=== PATIENT | female | born 1935 | race Caucasian/White ===

== ENCOUNTER → 2016-11-09 | Outpatient (CLI) | payer MEDICARE ==
--- NOTE | 2016-11-12 07:35 | MM ---
Reason for exam: screening (asymptomatic). Last mammogram was performed 15 years and 6 months ago. History: Patient is postmenopausal and has history of other cancer at age 27. Physical Findings: A clinical breast exam by your physician is recommended on an annual basis and results should be correlated with mammographic findings. MG 3D Screening Mammo W/Cad Bilateral CC and MLO view(s) were taken. Prior study comparison: November 24, 2013, mammogram. July 08, 2012, mammogram. There are scattered fibroglandular densities. Finding: There is a typically benign 3.8 mm equal density (isodense), round mass in the right breast seen only on MLO view. There is a chronic nodularity in the right breast. New finding since November 24, 2013 and July 08, 2012. ASSESSMENT: Probably benign, BI-RAD 3 RECOMMENDATION: Follow-up diagnostic mammogram of the right breast in 6 months.
== END | disposition home or self-care (01) ==
LOC: RADMAMWWP 14:34
PROVIDERS: ATTEND Internal Medicine
DX: Z12.31 Encounter for screening mammogram for malignant neoplasm of breast (principal); Z88.1 Allergy status to other antibiotic agents
CPT/HCPCS: 77063; G0202

== ENCOUNTER → 2017-05-15 | Outpatient (CLI) | payer MEDICARE ==
--- NOTE | 2017-05-16 06:58 | MM ---
Reason for exam: follow-up at short interval from prior study. Last mammogram was performed 6 months ago. History: Patient is postmenopausal and has history of other cancer at age 27. Physical Findings: Nurse did not find any significant physical abnormalities on exam. MG 3D Diag Mammo W/Cad RT CC and MLO view(s) were taken of the right breast. Prior study comparison: November 09, 2016, bilateral MG 3d screening mammo w/cad. November 24, 2013, mammogram. There are scattered fibroglandular densities. The previously seen 3mm asymmetry overlying the inferior pectoralis muscles is unchanged. Precautionary 6 month follow up recommended. These results were verbally communicated with the patient and result sheet given to the patient on 05/15/17. ASSESSMENT: Probably benign, BI-RAD 3 RECOMMENDATION: Follow-up diagnostic mammogram of both breasts in 6 months.
== END | disposition home or self-care (01) ==
LOC: RADMAMWWP 15:31
PROVIDERS: ATTEND Internal Medicine
DX: R92.8 Other abnormal and inconclusive findings on diagnostic imaging of breast (principal)
CPT/HCPCS: 77065; G0279

== ENCOUNTER → 2017-11-29 | Outpatient (CLI) | payer MEDICARE ==
[2017-11-29 10:56] LABS: Basophils % (A) 1 %; Eosinophils # (A) 0.3 k/uL (0-0.7); Eosinophils % (A) 5 %; HCT 37.3 % (34.0-46.0); HGB 11.7 gm/dL (11.4-16.0); Hypochromasia Slight; Lymphocytes # (A) 1.5 k/uL (1.0-4.8); Lymphocytes % (A) 28 %; MCH 30.5 pg (25.0-35.0); MCHC 31.4 g/dL (31.0-37.0); MCV 97.3 fL (80.0-100.0); Mean Platelet Volume 6.7; Monocytes # (A) 0.4 k/uL (0-1.0); Monocytes % (A) 8 %; Neutrophils % (A) 55 %; Platelet Count 258 k/uL (150-450); RBC 3.84 m/uL (3.80-5.40); RDW 14.3 % (11.5-15.5); WBC 5.5 k/uL (3.8-10.6)
[2017-11-29 11:59] LABS: Albumin 3.7 g/dL (3.5-5.0); C Reactive Protein 10.1 mg/L (<10.0); Calcium 9.3 mg/dL (8.4-10.2); Magnesium 2.3 mg/dL (1.6-2.3); Phosphorus 4.2 mg/dL (2.5-4.5); Potassium 4.6 mmol/L (3.5-5.1); Total Bilirubin 0.3 mg/dL (0.2-1.3); Total Protein 6.6 g/dL (6.3-8.2); Uric Acid 7.2 mg/dL (3.7-7.4)
[2017-11-29 13:39] LABS: Erythrocyte Sedimentation Rate 18 mm/hr (0-20)
[2017-11-29 16:29] LABS: Vitamin D 25 Hydroxy 19.4 ng/mL (30.0-100.0)
[2017-11-29 17:33] LABS: Parathyroid Hormone Intact 93.3 pg/mL (14.0-72.0)
[2017-11-29 22:29] LABS: Hemoglobin A1C 5.1 % (4.0-6.0)
== END | disposition home or self-care (01) ==
LOC: LABWHC1 10:18
PROVIDERS: ATTEND Internal Medicine
DX: E11.22 Type 2 diabetes mellitus with diabetic chronic kidney disease (principal); I12.9 Hypertensive chronic kidney disease with stage 1 through stage 4 chronic kidney disease, or unspecified chronic kidney disease; N18.4 Chronic kidney disease, stage 4 (severe); M10.9 Gout, unspecified; E78.5 Hyperlipidemia, unspecified; M19.90 Unspecified osteoarthritis, unspecified site
CPT/HCPCS: 36415; 80053; 80061; 82306; 82550; 83036; 83735; 83970; 84100; 84443; 84550; 85025; 85652; 86140

== ENCOUNTER → 2018-01-15 | Outpatient (CLI) | payer MEDICARE ==
--- NOTE | 2018-01-20 11:15 | MM ---
Reason for exam: screening (asymptomatic). Last mammogram was performed 8 months ago. History: Patient is postmenopausal and has history of other cancer at age 27. Physical Findings: A clinical breast exam by your physician is recommended on an annual basis and results should be correlated with mammographic findings. MG 3D Screening Mammo W/Cad Bilateral CC and MLO view(s) were taken. Prior study comparison: May 15, 2017, right breast MG 3d diag mammo w/cad RT. November 09, 2016, bilateral MG 3d screening mammo w/cad. There are scattered fibroglandular densities. Benign appearing bilateral calcifications. No suspicious abnormality. No significant changes when compared with prior studies. ASSESSMENT: Benign, BI-RAD 2 RECOMMENDATION: Routine screening mammogram of both breasts in 1 year.
== END | disposition home or self-care (01) ==
LOC: RADMAMWWP 15:17
PROVIDERS: ATTEND Internal Medicine
DX: R92.8 Other abnormal and inconclusive findings on diagnostic imaging of breast (principal)
CPT/HCPCS: 77063; 77067

== ENCOUNTER → 2019-02-05 | Outpatient (CLI) | payer MEDICARE ==
[2019-02-05 17:30] LABS: Basophils % (A) 0 %; Eosinophils # (A) 0.1 k/uL (0-0.7); Eosinophils % (A) 1 %; HCT 37.2 % (34.0-46.0); HGB 11.9 gm/dL (11.4-16.0); Lymphocytes # (A) 1.4 k/uL (1.0-4.8); Lymphocytes % (A) 11 %; MCH 30.1 pg (25.0-35.0); MCHC 32.1 g/dL (31.0-37.0); MCV 93.6 fL (80.0-100.0); Mean Platelet Volume 7.5; Monocytes # (A) 0.9 k/uL (0-1.0); Monocytes % (A) 7 %; Neutrophils # (A) 9.3 k/uL (1.3-7.7); Neutrophils % (A) 77 %; Platelet Count 266 k/uL (150-450); RBC 3.97 m/uL (3.80-5.40); RDW 14.3 % (11.5-15.5); WBC 12.1 k/uL (3.8-10.6)
--- NOTE | 2019-02-05 22:18 | XR ---
EXAMINATION TYPE: XR abdomen complete w decub DATE OF EXAM: 02/05/2019 COMPARISON: NONE HISTORY: Constipation. No bowel movement for 4 days. TECHNIQUE: 4 views FINDINGS: There is some retained fecal material in the large bowel. There is no sign of pneumoperiton eum. There are some interstitial infiltrates at the lung bases. There are no pathologic calcification s over the kidneys. Abdominal aorta is atheromatous. There are surgical clips in the pelvis on the ri ght side. 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 IMPRESSION: Constipation.
[2019-02-06 00:27] LABS: African American GFR (CKD) 24.6 (60.0-200.0); BUN/Creat Ratio 14.29 Ratio (12.00-20.00); Non-African American GFR(CKD) 21.2 (60.0-200.0); Potassium 3.5 mmol/L (3.5-5.5)
== END | disposition home or self-care (01) ==
LOC: LABWHC1 17:13
PROVIDERS: ATTEND Internal Medicine
DX: K59.00 Constipation, unspecified (principal); R10.9 Unspecified abdominal pain
CPT/HCPCS: 36415; 74021; 80048; 82150; 83690; 85025

== ENCOUNTER 2019-02-07 14:02 | Inpatient (IN) | payer MEDICARE ==
[2019-02-07] MEDS ORDERED: SODIUM CHLORIDE 0.9% 500 ML 500 ML IV STA (14:36)
--- NOTE | 2019-02-07 14:51 | ED ---
General Adult HPI - General Source: patient, family, RN notes reviewed, old records reviewed Mode of arrival: wheelchair Limitations: no limitations <Fran Julio - Last Filed: 02/07/19 20:30> <Senait Oilvo - Last Filed: 02/09/19 14:29> - General Chief complaint: Abdominal Pain Stated complaint: Abd Pain Time Seen by Provider: 02/07/19 14:25 - History of Present Illness Initial comments: 83-year-old female patient with past history of appendectomy, solitary kidney presents to ED for chief complaint of constipation, dominant discomfort. Patient reports that she has not had a bowel movement since Saturday. She states that she saw her primary care provider 2 days ago when she had an x-ray which showed constipation. Patient has tried a Fleet enema and MiraLAX at home without any bowel movement. Patient has now complaining of abdominal bloating, discomfort nonlocalized. Denies any other complaints. Denies any nausea vomiting. Systemic: Pt denies fatigue, fever/chills, rash. Pt denies weakness, night sweats, weight loss. Neuro: Pt denies headache, visual disturbances, syncope or pre-syncope. HEENT: Pt denies ocular discharge or irritation, otalgia, rhinorrhea, pharyngitis or notable lymphadenopathy. Cardiopulmonary: Pt denies chest pain, SOB, heart palpitations, dyspnea on exertion. Abdominal/GI: Pt denies n/v/d. : Pt denies dysuria, burning w/ urination, frequency/urgency. Denies new onset urinary or bowel incontinence. MSK: Pt denies myalgia, loss of strength or function in extremities. Neuro: Pt denies new onset weakness, paresthesias. (Fran Julio) - Related Data Home Medications Medication Instructions Recorded Confirmed Atorvastatin [Lipitor] 10 mg PO Q48H 02/07/19 02/09/19 Cholecalciferol [Vitamin D3 (25 1,000 unit PO DAILY 02/07/19 02/07/19 Mcg = 1000 Iu)] DULoxetine HCL [Cymbalta] 60 mg PO HS 02/07/19 02/09/19 Diclofenac Sodium Gel [Voltaren 1 applic TOPICAL DAILY PRN 02/07/19 02/07/19 Gel] Sodium Bicarbonate 325 mg PO BID 02/07/19 02/07/19 amLODIPine [Norvasc] 5 mg PO BID 02/07/19 02/09/19 cloNIDine HCL [Catapres] 0.1 mg PO BID 02/07/19 02/09/19 hydrALAZINE HCL 50 mg PO BID-W/MEALS 02/07/19 02/09/19 Azithromycin [Zithromax Z-pack] See Taper PO DIRECTED 02/09/19 02/09/19 Metoprolol Tartrate 25 mg PO BID 02/09/19 02/09/19 Polyethylene Glycol 3350 [Miralax] 17 gm PO DAILY 02/09/19 02/09/19 Allergies Allergy/AdvReac Type Severity Reaction Status Date / Time No Known Allergies Allergy Verified 02/07/19 14:22 Review of Systems ROS Other: All systems not noted in ROS Statement are negative. <Fran Julio - Last Filed: 02/07/19 20:30> ROS Other: All systems not noted in ROS Statement are negative. <Senait Olivo - Last Filed: 02/09/19 14:29> ROS Statement: Those systems with pertinent positive or pertinent negative responses have been documented in the HPI. Past Medical History Past Medical History: Hyperlipidemia, Hypertension Additional Past Medical History / Comment(s): one functioning kidney, cervical ca, uretheral ca, hip pain History of Any Multi-Drug Resistant Organisms: None Reported Past Surgical History: Appendectomy Additional Past Surgical History / Comment(s): bowel resection, kdiney tumor removed Past Psychological History: No Psychological Hx Reported Smoking Status: Never smoker Past Alcohol Use History: None Reported Past Drug Use History: None Reported <Fran Julio - Last Filed: 02/07/19 20:30> General Exam Limitations: no limitations <Fran Julio - Last Filed: 02/07/19 20:30> - General Exam Comments Initial Comments: Constitutional: NAD, AOX3, Pt has pleasant affect. HEENT: NC/AT, trachea midline, neck supple, no lymphadenopathy. Posterior pharynx non erythematous, without exudates. External ears appear normal, without discharge. Mucous membranes moist. Eyes PERRLA, EOM intact. There is no scleral icterus. No pallor noted. Cardiopulmonary: RRR, no murmurs, rubs or gallops, no JVD noted. Lungs CTAB in anterior and posterior reeder. No peripheral edema. Abdominal exam: Abdomen soft and mildly distended. Abdomen generalized abdominal tenderness. Nonlocalized.. Bowel sounds active in LLQ. No hepatosplenomegaly. No ecchymosis Neuro: CN II-XII grossly intact. No nuchal rigidity. No raccon eyes, no lugo sign, no hemotympanum. No cervical spinal tenderness. MSK: No posterior calf tenderness bilaterally, homans sign negative bilaterally. Posterior tibialis and radial pulse +2 bilaterally. Sensation intact in upper and lower extremities. Full active ROM in upper and lower extremities, 5/5 stregnth. (Fran Julio) Course Vital Signs 02/07/19 02/07/19 02/07/19 14:17 15:22 21:22 Temperature 98.0 F 98.0 F Pulse Rate 74 87 80 Respiratory 18 18 16 Rate Blood Pressure 147/90 156/81 160/80 O2 Sat by Pulse 92 L 92 L 93 L Oximetry Medical Decision Making - Lab Data Result diagrams: 02/07/19 14:50 02/07/19 14:50 <Fran Julio - Last Filed: 02/07/19 20:30> - Lab Data Result diagrams: 02/09/19 06:16 02/09/19 06:16 <Senait Olivo - Last Filed: 02/09/19 14:29> - Medical Decision Making 83-year-old female patient with past history of appendectomy, solitary kidney presents to ED for chief complaint of constipation, dominant discomfort. P atient reports that she has not had a bowel movement since Saturday. She states that she saw her primary care provider 2 days ago when she had an x-ray which showed constipation. Patient has tried a Fleet enema and MiraLAX at home without any bowel movement. Patient has now complaining of abdominal bloating, discomfort nonlocalized. Denies any other complaints. Denies any nausea vomiting. Patient will signs stable, afebrile. Physical exam displayed abdominal distention, mild generalized tenderness. No focal area of tenderness. Laboratory investigations are non-impressive. KUB displayed multiple loops of gas-filled bowel distention of ileus. Mild constipation. Enemas were tried on 2 occasions, patient did not have any bowel movement. Rectal vault is empty. Patient continued to have abdominal bloating and discomfort. CT abdomen and pelvis without contrast was performed. Display dilated small bowel suggestive of partial mechanical small bowel obstruction. No transition point seen. Ecchymosis without diverticulitis. Constipation. Right-sided hydronephrosis possible pyelonephritis. Left renal atrophy. Dilated gallbladder suggesting possible cholecystitis. Patient not have any elevated transaminitis or bilirubin. Right upper quadrant is not significantly tender. Villagomez sign is negative. Patient be initiated on Zosyn. Will be admitted with surgical consultation. Case discussed with Dr. Olivo. (Fran Julio) I was available for consultation in the emergency department. The history and physical exam were done by the midlevel provider. I was consulted for this patients care. I reviewed the case with the midlevel provider and based on their presentation of the patient, I agree with the assessment, medical decision making and plan of care as documented. I discussed the case with the admitting physician who requested that surgery and GI be placed on consult. Chart was dictated using [employer] dictation software. Attempts were made to correct any dictation errors however some typographical errors may persist. (Senait Olivo) - Lab Data Lab Results 02/07/19 02/07/19 02/07/19 Range/Units 14:50 14:50 14:50 WBC 11.8 H (3.8-10.6) k/uL RBC 4.06 (3.80-5.40) m/uL Hgb 12.2 (11.4-16.0) gm/dL Hct 37.5 (34.0-46.0) % MCV 92.4 (80.0-100.0) fL MCH 30.0 (25.0-35.0) pg MCHC 32.5 (31.0-37.0) g/dL RDW 13.9 (11.5-15.5) % Plt Count 299 (150-450) k/uL Neutrophils % 80 % Lymphocytes % 9 % Monocytes % 7 % Eosinophils % 1 % Basophils % 0 % Neutrophils # 9.4 H (1.3-7.7) k/uL Lymphocytes # 1.0 (1.0-4.8) k/uL Monocytes # 0.8 (0-1.0) k/uL Eosinophils # 0.2 (0-0.7) k/uL Basophils # 0.0 (0-0.2) k/uL Sodium 136 L (137-145) mmol/L Potassium 3.5 (3.5-5.1) mmol/L Chloride 101 (98-107) mmol/L Carbon Dioxide 21 L (22-30) mmol/L Anion Gap 14 mmol/L BUN 34 H (7-17) mg/dL Creatinine 2.42 H (0.52-1.04) mg/dL Est GFR (CKD-EPI)AfAm 21 (>60 ml/min/1.73 sqM) Est GFR (CKD-EPI)NonAf 18 (>60 ml/min/1.73 sqM) Glucose 132 H (74-99) mg/dL Plasma Lactic Acid Sahil 0.9 (0.7-2.0) mmol/L Calcium 9.7 (8.4-10.2) mg/dL Total Bilirubin 1.0 (0.2-1.3) mg/dL AST 22 (14-36) U/L ALT 14 (4-34) U/L Alkaline Phosphatase 94 (38-126) U/L Total Protein 6.8 (6.3-8.2) g/dL Albumin 3.9 (3.5-5.0) g/dL Lipase 33 (23-300) U/L Disposition Is patient prescribed a controlled substance at d/c from ED?: No <Fran Julio - Last Filed: 02/07/19 20:30> <Senait Olivo - Last Filed: 02/09/19 14:29> Clinical Impression: Partial small bowel obstruction Disposition: ADMITTED IP TO THIS HOSP Condition: Serious
[2019-02-07 15:01] LABS: Basophils % (A) 0 %; Eosinophils # (A) 0.2 k/uL (0-0.7); Eosinophils % (A) 1 %; HCT 37.5 % (34.0-46.0); HGB 12.2 gm/dL (11.4-16.0); Lymphocytes % (A) 9 %; MCHC 32.5 g/dL (31.0-37.0); MCV 92.4 fL (80.0-100.0); Mean Platelet Volume 7.4; Monocytes # (A) 0.8 k/uL (0-1.0); Monocytes % (A) 7 %; Neutrophils # (A) 9.4 k/uL (1.3-7.7); Neutrophils % (A) 80 %; Platelet Count 299 k/uL (150-450); RBC 4.06 m/uL (3.80-5.40); RDW 13.9 % (11.5-15.5); WBC 11.8 k/uL (3.8-10.6)
[2019-02-07 15:13] LABS: Albumin 3.9 g/dL (3.5-5.0); Calcium 9.7 mg/dL (8.4-10.2); Potassium 3.5 mmol/L (3.5-5.1); Total Protein 6.8 g/dL (6.3-8.2)
--- NOTE | 2019-02-07 15:29 | XR ---
EXAMINATION TYPE: XR KUB DATE OF EXAM: 02/07/2019 COMPARISON: 02/05/2019 HISTORY: Constipation TECHNIQUE: 2 views upright FINDINGS: There are multiple loops of gas-filled large and small bowel. There is some retained fecal material in the right colon. There is no sign of free air. There is some pleural reaction and atelect asis at the lung bases. IMPRESSION: Multiple loops of gas filled bowel consistent with ileus. Mild constipation. No significa nt change compared to last exam. Severe osteoarthritis noted in the right hip joint.
[2019-02-07] MEDS ORDERED: MAGNESIUM CITRATE 296 ML BOTTLE PO ONE (15:32)
[2019-02-07] MEDS ORDERED: DOCUSATE 283 MG/5 ML ENEMA RECTAL STA (18:25)
[2019-02-07] MEDS ORDERED: SIMETHICONE 80 MG CHEWABLE PO STA (19:19)
--- NOTE | 2019-02-07 20:07 | CT ---
EXAMINATION TYPE: CT abdomen pelvis wo con DATE OF EXAM: 02/07/2019 COMPARISON: None HISTORY: Pelvic pain with lack of bowel movements for 5-[address] DLP: 492.8 mGycm Automated exposure control for dose reduction was used. Multiple axial sections were obtained from the diaphragm to the floor the pelvis with no contrast. There is bilateral basilar pulmonary infiltrate and atelectasis. Heart is enlarged. There is no peric ardial effusion. There is no pleural effusion. Stomach shows a small hiatal hernia. Gallbladder is enlarged and measures 5.4 cm in diameter. The asael e ducts are not dilated. There is no focal liver defect. Spleen appears normal. There is dilated panc reatic duct with cystic 2.5 cm area in the body of the pancreas. There is punctate 3 mm pancreatic ca lcification. There is no adrenal mass. There is some air in the right upper collecting system. Bladder distends sm oothly. There is no inguinal hernia. There is right-sided hydronephrosis and hydroureter. There is si gnificant left renal atrophy. There is no retroperitoneal adenopathy. Abdominal aorta is atheromatous . There are multiple dilated air and fluid-filled loops of small bowel in the mid abdomen. Small annie l measures up to 3.5 cm. There are numerous large bowel diverticula. There is retained fecal material throughout the large bowel. Distal small bowel is not dilated. Transition point of the small bowel i s not identified. Lumbar vertebra have fairly normal alignment. There is 5 mm anterior subluxation of L3 in relation L4 . There is 10% anterior wedging of L2 vertebra. The bony pelvis is intact. There is severe arthritic change in the right hip joint. There is no mesenteric edema. There is no evidence of pneumoperitoneum. IMPRESSION: Dilated small bowel suggestive of partial mechanical small bowel obstruction. Transition point not se en. Colonic diverticulosis without diverticulitis. Constipation. Moderate right-sided hydronephrosis with evidence of air reflux in the right upper collecting system. Right-sided pyelonephritis is possible. This should be considered if the patient has not had recent catheterization. Advanced left renal atrophy. Dilated gallbladder suggestive of cholecystitis. Bilateral basilar pulmonary infiltrates and atelectasis.
[2019-02-07] MEDS ORDERED: NALOXONE 0.4 MG/ML 1 ML VIAL IV PRN (20:20)
[2019-02-07] MEDS ORDERED: ONDANSETRON 4 MG/2 ML VIAL IVP STA (20:40)
[2019-02-07] MEDS: MORPHINE SULFATE 2 MG/ML SYRINGE IVP PRN (20:54)
[2019-02-07] MEDS: SODIUM CHLORIDE 0.9% 1,000 ML IV SCH (20:59)
--- NOTE | 2019-02-07 21:07 | ED ---
Medical Decision Making - Lab Data Result diagrams: 02/07/19 14:50 02/07/19 14:50 Lab Results 02/07/19 02/07/19 02/07/19 Range/Units 14:50 14:50 14:50 WBC 11.8 H (3.8-10.6) k/uL RBC 4.06 (3.80-5.40) m/uL Hgb 12.2 (11.4-16.0) gm/dL Hct 37.5 (34.0-46.0) % MCV 92.4 (80.0-100.0) fL MCH 30.0 (25.0-35.0) pg MCHC 32.5 (31.0-37.0) g/dL RDW 13.9 (11.5-15.5) % Plt Count 299 (150-450) k/uL Neutrophils % 80 % Lymphocytes % 9 % Monocytes % 7 % Eosinophils % 1 % Basophils % 0 % Neutrophils # 9.4 H (1.3-7.7) k/uL Lymphocytes # 1.0 (1.0-4.8) k/uL Monocytes # 0.8 (0-1.0) k/uL Eosinophils # 0.2 (0-0.7) k/uL Basophils # 0.0 (0-0.2) k/uL Sodium 136 L (137-145) mmol/L Potassium 3.5 (3.5-5.1) mmol/L Chloride 101 (98-107) mmol/L Carbon Dioxide 21 L (22-30) mmol/L Anion Gap 14 mmol/L BUN 34 H (7-17) mg/dL Creatinine 2.42 H (0.52-1.04) mg/dL Est GFR (CKD-EPI)AfAm 21 (>60 ml/min/1.73 sqM) Est GFR (CKD-EPI)NonAf 18 (>60 ml/min/1.73 sqM) Glucose 132 H (74-99) mg/dL Plasma Lactic Acid Sahil 0.9 (0.7-2.0) mmol/L Calcium 9.7 (8.4-10.2) mg/dL Total Bilirubin 1.0 (0.2-1.3) mg/dL AST 22 (14-36) U/L ALT 14 (4-34) U/L Alkaline Phosphatase 94 (38-126) U/L Total Protein 6.8 (6.3-8.2) g/dL Albumin 3.9 (3.5-5.0) g/dL Lipase 33 (23-300) U/L - EKG Data -: EKG Interpreted by Me (and Dr. Olivo ) EKG Comments: ventricular rate 93, when necessary for 164, QRS 88, QT/QTC 344/427. Sinus rhythm with PVC. Nonsmoker ST-T wave abnormality. No concern for acute ischemia this time. Disposition Clinical Impression: Partial small bowel obstruction Disposition: ADMITTED IP TO THIS HOSP Condition: Serious Is patient prescribed a controlled substance at d/c from ED?: No
--- NOTE | 2019-02-07 21:36 | US ---
EXAMINATION TYPE: US gallbladder DATE OF EXAM: 02/07/2019 COMPARISON: CT CLINICAL HISTORY: abnormal gallbladder on CT . abdominal pain, patient self bladder catheterizes; no bowel movement in 5 days. EXAM MEASUREMENTS: Liver Length: 11.6 cm Gallbladder Wall: 0.2 cm CBD: 0.2 cm Right Kidney: 9.5 x 4.5 x 5.5 cm Pancreas: Obscured by bowel gas Liver: partially obscured by overlying bowel gas Gallbladder: 10.7cm long with sludge/echogenic bile noted within in LLD position Evidence for sonographic Villagomez's sign: entire abdomen pain is noted by patient CBD: wnl Right Kidney: mild hydronephrosis with hydroureter and ureter dilated at 4.9cm A/P. IMPRESSION: Moderately dilated gallbladder measures 11 x 5.5 cm and consistent with cholecystitis. Ec hogenic bile. No definite gallstones. No dilated ducts. Right-sided hydronephrosis.
[2019-02-07 22:35] LABS: Appearance,Urine Cloudy (Clear); Bacteria,Urine Many /hpf; Bilirubin,Urine Negative (Negative); Blood,Urine Negative (Negative); Color,Urine Yellow; Glucose,Urine (UA) Negative (Negative); Ketones,Urine Negative (Negative); Leukocyte Esterase,Urine Large (Negative); Mucus,Urine Rare /hpf; Nitrite,Urine Negative (Negative); Protein,Urine 1+ (Negative); RBC,Urine 6 /hpf (0-5); Specific Gravity,Urine 1.012 (1.001-1.035); WBC,Urine 74 /hpf (0-5)
[2019-02-07] MEDS: ATORVASTATIN 10 MG TAB PO SCH (23:02)
[2019-02-07] MEDS: SODIUM BICARBONATE TAB 650 MG TAB PO SCH (23:03)
[2019-02-07] MEDS: DULoxetine HCL 60 MG CAPSULE.DR PO SCH (23:03)
[2019-02-07] MEDS: hydrALAZINE HCL 25 MG TAB PO SCH (23:03)
[2019-02-07] MEDS: PIPERACILLIN-TAZOBACTAM 3.375 GM in SODIUM CHLORIDE 0.9% 100 ML IVPB SCH (23:11)
[2019-02-08] MEDS ORDERED: PIPERACILLIN-TAZOBACTAM 3.375 GM in SODIUM CHLORIDE 0.9% 100 ML IVPB SCH ×2
[2019-02-08] MEDS: SODIUM CHLORIDE 0.9% 1,000 ML IV SCH (05:51)
[2019-02-08 07:07] LABS: Basophils % (A) 0 %; Eosinophils % (A) 0 %; HCT 37.8 % (34.0-46.0); HGB 12.4 gm/dL (11.4-16.0); Lymphocytes # (A) 1.1 k/uL (1.0-4.8); Lymphocytes % (A) 9 %; MCH 30.6 pg (25.0-35.0); MCHC 32.7 g/dL (31.0-37.0); MCV 93.7 fL (80.0-100.0); Mean Platelet Volume 7.2; Monocytes # (A) 0.8 k/uL (0-1.0); Monocytes % (A) 7 %; Neutrophils # (A) 9.5 k/uL (1.3-7.7); Neutrophils % (A) 81 %; Platelet Count 358 k/uL (150-450); RBC 4.04 m/uL (3.80-5.40); RDW 13.8 % (11.5-15.5); WBC 11.8 k/uL (3.8-10.6)
[2019-02-08 07:24] LABS: Albumin 3.6 g/dL (3.5-5.0); Calcium 9.3 mg/dL (8.4-10.2); Potassium 3.1 mmol/L (3.5-5.1); Total Bilirubin 0.8 mg/dL (0.2-1.3); Total Protein 6.4 g/dL (6.3-8.2)
[2019-02-08] MEDS: MORPHINE SULFATE 2 MG/ML SYRINGE IVP PRN ×2 (08:51→20:44)
[2019-02-08] MEDS: SODIUM BICARBONATE TAB 650 MG TAB PO SCH ×2 (08:52→20:45)
[2019-02-08] MEDS: hydrALAZINE HCL 25 MG TAB PO SCH ×3 (08:52→22:28)
[2019-02-08] MEDS ORDERED: Potassium Replacement Protocol 1 EACH MISC MISCELLANE PRN ×3 (08:57→09:13)
[2019-02-08] MEDS ORDERED: POTASSIUM CHLORIDE ER 20 MEQ TAB.ER PO SCH (10:00)
--- NOTE | 2019-02-08 10:01 | CONS ---
CONSULTATION DATE OF CONSULTATION: February 08, 2019. REQUESTING PHYSICIAN: Dr. Engel. REASON FOR CONSULTATION: Abdominal pain, constipation. HISTORY OF PRESENT ILLNESS: The patient is an 80-year-old pleasant white female who was admitted to the hospital yesterday when she presented to the emergency room complaining of severe abdominal pain associated with nausea, vomiting that started for the last 2-3 days duration. The patient says that she normally has chronic diarrhea and takes Imodium every day. She usually takes 1 or 2 Imodium every day, but however a week ago she took 6 Imodium to control the diarrhea. Since then she has been extremely constipated. She did not have any bowel movement since last Saturday. She started having abdominal distention, lower abdominal discomfort associated with some nausea, vomiting, and abdominal bloating. Came to the emergency room. The patient was initially given enema with no help. She had a CT of the abdomen and pelvis done that showed dilated loops of small bowel consistent with small bowel obstruction with no transition point seen. The patient had prior appendectomy about 3 years ago for gangrenous appendicitis. This morning, the patient states abdominal distention is better. The nausea and vomiting have resolved. However, she is not able to pass any flatus or had any bowel movement so far. PAST MEDICAL HISTORY: Significant for hypertension, hypercholesteremia, degenerative joint disease. PAST SURGICAL HISTORY: Cervical cancer for which she underwent radiation therapy at age 27. History of appendectomy and kidney tumor removed. ALLERGIES: None. MEDICATIONS: At home include Norvasc, Catapres, hydralazine, Lipitor, vitamin D3, Cymbalta, Voltaren. ALLERGIES: None. SOCIAL HISTORY: No smoking. No alcohol use. FAMILY HISTORY: Unremarkable. REVIEW OF SYSTEMS: Cardiopulmonary: No chest pain, shortness of breath. no dysuria or hematuria. HEMATOLOGY unremarkable. PSYCHIATRIC unremarkable. ENT/vision unremarkable. CONSTITUTIONAL: No recent weight loss. No fever, chills, night sweats. PSYCHIATRIC unremarkable. PHYSICAL EXAMINATION: She appears comfortable in no apparent distress. Vital signs stable. Blood pressure 168/77, pulse rate 95, temperature 98.3. HEENT examination unremarkable. Conjunctivae pink. Sclerae anicteric. Oral cavity no lesions. NECK: No JVD or lymph node enlargement. CHEST: Clear to auscultation. HEART: Regular rate and rhythm. ABDOMEN: Soft, slightly distended. It was tympanic. Bowel sounds are positive. Mild diffuse tenderness. EXTREMITIES: No pedal edema. Skin no rashes. NEUROLOGIC: Alert and oriented x3. No focal deficits. LABS: Done at the time of admission to the hospital: WBC 11.8, hemoglobin 12.4, platelets normal. Basic metabolic panel showed a BUN of 34, creatinine 2.42. Rest of the labs have been normal. CT of the abdomen and pelvis done in the emergency room showed dilated loops of small bowel suggestive of partial mechanical small bowel obstruction with no transition point seen. Colonic diverticulosis seen and marked right-sided hydronephrosis. Also evidence of dilated gallbladder suggestive of cholecystitis. She did have an ultrasound of the gallbladder performed yesterday that showed moderate distended gallbladder with no gallstones and no dilated ducts. IMPRESSION: 1. This is a lady who presents to the hospital with acute onset of lower abdominal pain/periumbilical abdominal pain associated with nausea, vomiting, and severe constipation for the last 3-[address] of the abdomen showed dilated loops of small bowel consistent with partial small-bowel obstruction. Patient had a prior history of appendectomy about 3 years ago for gangrenous appendicitis. 2. Distended gallbladder with no gallstones. Rule out acute cholecystitis. 3. Elevated BUN, creatinine, hydronephrosis noted on CT scan. RECOMMENDATIONS: 1. Keep n.p.o. 2. Agree with surgical consultation. 3. Antiemetics as needed. 4. Pain medications as needed. Thank you for this consultation. MMODL / TIFFN: [id number] /
[2019-02-08] MEDS: POTASSIUM CHLORIDE 10 MEQ in WATER FOR INJECTION 1 100ML.BAG IVPB SCH ×4 (10:48→17:43)
--- NOTE | 2019-02-08 11:24 | P.GSCN ---
History of Present Illness Consult date: 02/08/19 History of present illness: The patient is an 83-year-old female who is in the hospital because of abdominal pain and lack of bowel movement for several days. She has had multiple abdominal surgeries. There is question of a possible small partial small bowel obstruction. The patient had a computed tomography scan which identified an atrophic left kidney and a hydronephrotic right kidney and ureter. We were asked to see the patient for this. The patient has been interviewed as has her daughter. She gives this history of cervical carcinoma treated with radiation many years ago. She gives a history of being aware of right sided kidney issues for many years. She has a neurogenic bladder and is on CIC 6 times per day. She has been cared for by in the past but has not seen him for several years. There is an apparent history of a tumor in the urinary tract, it sounds like a bladder tumor. Based on her history it sounds as if her kidney function has been off for some time. The daughter states that her kidney function is quoted between 18 and 25%. That would be consistent with the present creatinine of 2.4. It sounds as if she's been hydronephrotic for some time based again on the history. There is no hematuria dysuria or pain. There is no history of stones. She has had infections but is on CIC. Review of Systems All systems: negative - Constitutional Denies fever, Denies weight loss - EENT Eyes: denies blurred vision Ears, nose, mouth and throat: Denies dysphagia - Cardiovascular Denies chest pain, Denies shortness of breath - Respiratory Denies cough, Denies 7 - Gastrointestinal Reports as per HPI - Genitourinary Genitourinary: Denies dysuria, Denies hematuria - Integumentary Denies rash, Denies unusual bruising - Neurological Denies headaches, Denies syncope - Hematologic/Lymphatic Denies easy bleeding, Denies easy bruising Past Medical History Past Medical History: Hyperlipidemia, Hypertension, Osteoarthritis (OA), Renal Disease Additional Past Medical History / Comment(s): one functioning kidney, cervical ca, urethral ca, right hip pain History of Any Multi-Drug Resistant Organisms: None Reported Past Surgical History: Appendectomy, Bowel Resection Additional Past Surgical History / Comment(s): bowel resection, kidney tumor removed Past Psychological History: No Psychological Hx Reported Smoking Status: Never smoker Past Alcohol Use History: None Reported Past Drug Use History: None Reported Medications and Allergies Home Medications Medication Instructions Recorded Confirmed Type Atorvastatin [Lipitor] 02/07/19 History Cholecalciferol [Vitamin D3 (25 1,000 unit PO DAILY 02/07/19 02/07/19 History Mcg = 1000 Iu)] DULoxetine HCL [Cymbalta] 60 mg PO HS 02/07/19 02/07/19 History Diclofenac Sodium Gel [Voltaren 1 applic TOPICAL DAILY PRN 02/07/19 02/07/19 History Gel] Sodium Bicarbonate 325 mg PO BID 02/07/19 02/07/19 History amLODIPine [Norvasc] 5 mg PO DAILY 02/07/19 History cloNIDine HCL [Catapres] 02/07/19 History hydrALAZINE HCL 02/07/19 History Allergies Allergy/AdvReac Type Severity Reaction Status Date / Time No Known Allergies Allergy Verified 02/07/19 14:22 Surgical - Exam Vital Signs Temp Pulse Resp BP Pulse Ox 98.0 F 74 18 147/90 92 L 02/07/19 14:17 02/07/19 14:17 02/07/19 14:17 02/07/19 14:17 02/07/19 14:17 - General well developed, well nourished, no distress - Eyes PERRL - ENT no hearing loss - Neck trachea midline - Respiratory normal expansion, normal respiratory effort - Cardiovascular Rhythm: regular - Abdomen Abdomen: soft, tender, distended - Integumentary no rash, no growths - Neurologic normal coordination, normal sensation - Musculoskeletal normal posture - Psychiatric oriented to time, oriented to person, oriented to place, speech is normal, memory intact Results - Labs 02/08/19 06:46 02/08/19 06:46 Abnormal Lab Results - Last 24 Hours (Table) 02/07/19 02/07/19 02/07/19 Range/Units 14:50 14:50 22:15 WBC 11.8 H (3.8-10.6) k/uL Neutrophils # 9.4 H (1.3-7.7) k/uL Sodium 136 L (137-145) mmol/L Potassium (3.5-5.1) mmol/L Carbon Dioxide 21 L (22-30) mmol/L BUN 34 H (7-17) mg/dL Creatinine 2.42 H (0.52-1.04) mg/dL Glucose 132 H (74-99) mg/dL Urine Appearance Cloudy H (Clear) Urine Protein 1+ H (Negative) Ur Leukocyte Esterase Large H (Negative) Urine RBC 6 H (0-5) /hpf Urine WBC 74 H (0-5) /hpf Urine Bacteria Many H (None) /hpf Urine Mucus Rare H (None) /hpf 02/08/19 02/08/19 Range/Units 06:46 06:46 WBC 11.8 H (3.8-10.6) k/uL Neutrophils # 9.5 H (1.3-7.7) k/uL Sodium (137-145) mmol/L Potassium 3.1 L (3.5-5.1) mmol/L Carbon Dioxide (22-30) mmol/L BUN 34 H (7-17) mg/dL Creatinine 2.12 H (0.52-1.04) mg/dL Glucose 135 H (74-99) mg/dL Urine Appearance (Clear) Urine Protein (Negative) Ur Leukocyte Esterase (Negative) Urine RBC (0-5) /hpf Urine WBC (0-5) /hpf Urine Bacteria (None) /hpf Urine Mucus (None) /hpf Diabetes panel 02/07/19 02/08/19 Range/Units 14:50 06:46 Sodium 136 L 139 (137-145) mmol/L Potassium 3.5 3.1 L (3.5-5.1) mmol/L Chloride 101 102 (98-107) mmol/L Carbon Dioxide 21 L 26 (22-30) mmol/L BUN 34 H 34 H (7-17) mg/dL Creatinine 2.42 H 2.12 H (0.52-1.04) mg/dL Glucose 132 H 135 H (74-99) mg/dL Calcium 9.7 9.3 (8.4-10.2) mg/dL AST 22 19 (14-36) U/L ALT 14 13 (4-34) U/L Alkaline Phosphatase 94 92 (38-126) U/L Total Protein 6.8 6.4 (6.3-8.2) g/dL Albumin 3.9 3.6 (3.5-5.0) g/dL Calcium panel 02/07/19 02/08/19 Range/Units 14:50 06:46 Calcium 9.7 9.3 (8.4-10.2) mg/dL Albumin 3.9 3.6 (3.5-5.0) g/dL Pituitary panel 02/07/19 02/08/19 Range/Units 14:50 06:46 Sodium 136 L 139 (137-145) mmol/L Potassium 3.5 3.1 L (3.5-5.1) mmol/L Chloride 101 102 (98-107) mmol/L Carbon Dioxide 21 L 26 (22-30) mmol/L BUN 34 H 34 H (7-17) mg/dL Creatinine 2.42 H 2.12 H (0.52-1.04) mg/dL Glucose 132 H 135 H (74-99) mg/dL Calcium 9.7 9.3 (8.4-10.2) mg/dL Adrenal panel 02/07/19 02/08/19 Range/Units 14:50 06:46 Sodium 136 L 139 (137-145) mmol/L Potassium 3.5 3.1 L (3.5-5.1) mmol/L Chloride 101 102 (98-107) mmol/L Carbon Dioxide 21 L 26 (22-30) mmol/L BUN 34 H 34 H (7-17) mg/dL Creatinine 2.42 H 2.12 H (0.52-1.04) mg/dL Glucose 132 H 135 H (74-99) mg/dL Calcium 9.7 9.3 (8.4-10.2) mg/dL Total Bilirubin 1.0 0.8 (0.2-1.3) mg/dL AST 22 19 (14-36) U/L ALT 14 13 (4-34) U/L Alkaline Phosphatase 94 92 (38-126) U/L Total Protein 6.8 6.4 (6.3-8.2) g/dL Albumin 3.9 3.6 (3.5-5.0) g/dL - Imaging CT scan - abdomen: report reviewed, image reviewed CT scan - pelvis: report reviewed, image reviewed Assessment and Plan Assessment: Impression: Abdominal pain with distention possible partial small bowel obstruction. Right-sided hydronephrosis acute versus chronic. Atrophic left kidney, chronic. Chronic renal failure probable chronic based on history. Possible urinary infection versus inflammation from CIC. Recommendations: I will notify of this admission. He would have more historical information that will be helpful in the assessment of this hydronephrosis. There is no urgent need to do anything today. I suspect that the hydronephrosis is due to the previous radiation therapy. We'll follow this patient with you.
--- NOTE | 2019-02-08 11:27 | P.HPIM ---
History of Present Illness H&P Date: 02/08/19 (Small bowel obstruction) Chief Complaint: No bowel movement for 7 days associated with abdominal pain maximum tendern This is a dictation history and physical: Dictation by Dr. Michelle. Chief complaint severe abdominal pain of the lower abdomen with the tenderness in the left low lower quadrant. She had no bowel movement since last Saturday/Saturday 7 days ago. Patient tried several medication at home, including Fleet enema, MiraLAX, and she was on Augmentin 500 mg/125 3 times a day with the WBC 12 in the office when she was seen on last Saturday. Patient had x-ray at [facility] indicating retention of the stools. Patient presented to the emergency room with the same complaint after she had repeated vomiting at home no fever no chills. In the ER they obtained an abdominal x-ray and CT without contrast. With report on the record which indicating many abnormalities, I.e. hydroureter hydronephrosis, patient is self catheterization. Calcification in the pancreas. Small bowel obstruction probably mechanical secondary to adhesion. Patient subsequently admitted to the hospital, she is a self catheterization and we did a UA through a catheter found that she had large leukocyte Estrace with the WBC 74 and RBC 6 culture will be pending patient started on antibiotic. Past medical history: #1 advanced right hip arthritis with difficulty of walking. 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 His #3 she has previous abdominal surgery with exploration with rupture appendix with midline scar. #4 she had hypertension with hypertensive heart disease. #5 chronic kidney disease stage IV with the left kidney is atrophic. Has been followed by nephrology Dr. Murphy Gautam. #6 patient seen in the past by Dr. Delarosa and she is self catheterization. #7 she had rectal anal surgery, many years ago found by the history that she had polyps which was removed was slowed to be hemorrhoid with presence of incont inent of the stool as well. 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 #9 patient with history of depressive disorder stable on the current treatment. ALLERGY and known. Family history she has one son and a [id number]. Smoking history negative. Review of system: #1 neuro psychiatry stable #2 pulmonary no cough or expectoration #3 cardiovascular no history of chest pain however underlying tachycardia while present. #4 musculoskeletal she has a very hard time to walk due to severe osteoarthritis of the right hip and she uses a walker however is very painful and limits her walking ability and she refused surgical intervention. #5 endocrine no history of diabetes mellitus or thyroid disease #6 he genitourinary history of self catheterization with the retention of the urine. And she has also stool incontinent. #7 rest of 14 folate was noncontributory. Physical exam: Patient is conscious alert oriented 89 years old white female able to do her own decision. HEENT: Head was normocephalic and atraumatic, pupil reactive with history of cataract surgery and implant, hearing has been impaired mildly, oropharynx upper denture plate, uvula midline. Neck supple no JVD no thyromegaly no lymphadenopathy trachea midline. Chest clear to auscultation and percussion with the estimated 3 secondary to kyphoscoliosis. Heart regular, sinus with occasional PVCs and will be obtaining EKG. Abdomen: Normal bowel sound silent, male significant maximum tenderness on the left lower quadrant. No significant tenderness on right upper quadrant patient had cholelithiasis by the ultrasound of the abdomen. No epigastric tenderness to indicate pancreas abnormality however found calcification with the normal lipase. Extremities: Right hip advanced arthrosis patient refused surgery in the past now living at [facility], walking disability due to the right hip. No edema and positive pulses. Neurologically: Stable general condition no tremor, no neuro deficit, walking difficulties due to the right. Assessment: #1 small bowel obstruction #2 urinary tract infection #3 possible cystitis with self catheterization #4 hydroureter hydronephrosis #5 history of urethral tumor resected. #6 chronic kidney disease stage IV with the atrophy of the left kidney. Severe pain in the right hip pain on pain medication. # #8 hypertension with hypertensive heart disease. #9 metabolic acidosis secondary to the chronic kidney disease stage IV. Plan: #1 we'll continue the IV antibiotic with the presence of the UTI #[address] Delarosa urology and consultation with nephrology Dr. Arrington/Dr. Wang #[address] Sahu with the small bowel obstruction and mechanical obstruction. #4 so far symptomatic therapy with IV fluid which will change it to D5 0.9 normal saline and continue the antibiotic until the culture obtained. Past Medical History Past Medical History: Hyperlipidemia, Hypertension, Osteoarthritis (OA), Renal Disease Additional Past Medical History / Comment(s): one functioning kidney, cervical ca, urethral ca, right hip pain History of Any Multi-Drug Resistant Organisms: None Reported Past Surgical History: Appendectomy, Bowel Resection Additional Past Surgical History / Comment(s): bowel resection, kidney tumor removed Past Psychological History: No Psychological Hx Reported Smoking Status: Never smoker Past Alcohol Use History: None Reported Past Drug Use History: None Reported Medications and Allergies Home Medications Medication Instructions Recorded Confirmed Type Atorvastatin [Lipitor] 02/07/19 History Cholecalciferol [Vitamin D3 (25 1,000 unit PO DAILY 02/07/19 02/07/19 History Mcg = 1000 Iu)] DULoxetine HCL [Cymbalta] 60 mg PO HS 02/07/19 02/07/19 History Diclofenac Sodium Gel [Voltaren 1 applic TOPICAL DAILY PRN 02/07/19 02/07/19 History Gel] Sodium Bicarbonate 325 mg PO BID 02/07/19 02/07/19 History amLODIPine [Norvasc] 5 mg PO DAILY 02/07/19 History cloNIDine HCL [Catapres] 02/07/19 History hydrALAZINE HCL 02/07/19 History Allergies Allergy/AdvReac Type Severity Reaction Status Date / Time No Known Allergies Allergy Verified 02/07/19 14:22 Physical Exam Vitals: Vital Signs Temp Pulse Pulse Resp BP BP Pulse Ox 02/08/19 07:55 16 02/08/19 07:13 98.3 F 95 16 168/77 96 02/08/19 04:00 14 02/08/19 01:03 98.9 F 73 12 138/74 97 02/07/19 23:00 16 02/07/19 21:33 98.4 F 80 16 160/89 95 02/07/19 21:22 98.0 F 80 16 160/80 93 L 02/07/19 15:22 87 18 156/81 92 L 02/07/19 14:17 98.0 F 74 18 147/90 92 L Intake and Output 02/07/19 02/08/19 02/08/19 22:59 06:59 14:59 Intake Total 540 Output Total 300 600 Balance -300 540 -600 Intake: Oral 540 Output: Urine 300 600 Other: Voiding Method Diaper Self-Catheterization Incontinent Weight 68.039 kg Results CBC & Chem 7: 02/08/19 06:46 02/08/19 06:46 Labs: Abnormal Lab Results - Last 24 Hours (Table) 02/07/19 02/07/19 02/07/19 Range/Units 14:50 14:50 22:15 WBC 11.8 H (3.8-10.6) k/uL Neutrophils # 9.4 H (1.3-7.7) k/uL Sodium 136 L (137-145) mmol/L Potassium (3.5-5.1) mmol/L Carbon Dioxide 21 L (22-30) mmol/L BUN 34 H (7-17) mg/dL Creatinine 2.42 H (0.52-1.04) mg/dL Glucose 132 H (74-99) mg/dL Urine Appearance Cloudy H (Clear) Urine Protein 1+ H (Negative) Ur Leukocyte Esterase Large H (Negative) Urine RBC 6 H (0-5) /hpf Urine WBC 74 H (0-5) /hpf Urine Bacteria Many H (None) /hpf Urine Mucus Rare H (None) /hpf 02/08/19 02/08/19 Range/Units 06:46 06:46 WBC 11.8 H (3.8-10.6) k/uL Neutrophils # 9.5 H (1.3-7.7) k/uL Sodium (137-145) mmol/L Potassium 3.1 L (3.5-5.1) mmol/L Carbon Dioxide (22-30) mmol/L BUN 34 H (7-17) mg/dL Creatinine 2.12 H (0.52-1.04) mg/dL Glucose 135 H (74-99) mg/dL Urine Appearance (Clear) Urine Protein (Negative) Ur Leukocyte Esterase (Negative) Urine RBC (0-5) /hpf Urine WBC (0-5) /hpf Urine Bacteria (None) /hpf Urine Mucus (None) /hpf
[2019-02-08] MEDS ORDERED: DEXTROSE 5%-0.9% NACL 1,000 ML IV SCH (11:30)
--- NOTE | 2019-02-08 11:50 | P.GSCN ---
History of Present Illness Consult date: 02/08/19 Reason for Consult: abdominal pain History of present illness: patient presents to the hospital with abdominal discomfort that started on . patient describes constipation. Last bowel movement on Saturday. She has had episodes of nausea and vomiting and abdominal cramps. Pain is mostly lower abdomen. Not passing much flatus. No rectal bleeding. Tried a fleets enema at home. Tried MiraLAX at home. Tried magnesium citrate in the ER along with a milk of molasses enema yesterday without significant relief. Pertinent history of open appendectomy with cecectomy for ruptured appendicitis 3 years ago. 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 Patient had prior rectal surgery as well and has some issues with urinary retention and fecal incontinence. Patient uses a urinary catheter rout inely. She had a CAT scan performed which revealed distended small and large bowel loops, distended gallbladder, possible pancreatic cyst with possible dilated pancreatic duct. Reviewing the films there does appear to be a subtle narrowing in the sigmoid colon with some mild inflammatory changes. Unclear whether she has had pelvic radiation in the past. Urinalysis suggests possible UTI versus colonization. Review of Systems The patient denies any acute changes in vision or hearing, no dysphagia or odynophagia, no chest pain or shortness of breath, no dysuria or hematuria, no headache, no runny nose, no rectal bleeding or melena, no unexplained weight loss Past Medical History Past Medical History: Hyperlipidemia, Hypertension, Osteoarthritis (OA), Renal Disease Additional Past Medical History / Comment(s): one functioning kidney, cervical ca, urethral ca, right hip pain History of Any Multi-Drug Resistant Organisms: None Reported Past Surgical History: Appendectomy, Bowel Resection Additional Past Surgical History / Comment(s): bowel resection, kidney tumor removed Past Psychological History: No Psychological Hx Reported Smoking Status: Never smoker Past Alcohol Use History: None Reported Past Drug Use History: None Reported Medications and Allergies Home Medications Medication Instructions Recorded Confirmed Type Atorvastatin [Lipitor] 02/07/19 History Cholecalciferol [Vitamin D3 (25 1,000 unit PO DAILY 02/07/19 02/07/19 History Mcg = 1000 Iu)] DULoxetine HCL [Cymbalta] 60 mg PO HS 02/07/19 02/07/19 History Diclofenac Sodium Gel [Voltaren 1 applic TOPICAL DAILY PRN 02/07/19 02/07/19 History Gel] Sodium Bicarbonate 325 mg PO BID 02/07/19 02/07/19 History amLODIPine [Norvasc] 5 mg PO DAILY 02/07/19 History cloNIDine HCL [Catapres] 02/07/19 History hydrALAZINE HCL 02/07/19 History Allergies Allergy/AdvReac Type Severity Reaction Status Date / Time No Known Allergies Allergy Verified 02/07/19 14:22 Surgical - Exam Vital Signs Temp Pulse Resp BP Pulse Ox 98.0 F 74 18 147/90 92 L 02/07/19 14:17 02/07/19 14:17 02/07/19 14:17 02/07/19 14:17 02/07/19 14:17 Physical exam: General: Well-developed, well-nourished HEENT: Normocephalic, sclerae nonicteric Abdomen: mild distention, mild tenderness diffusely Extremities: No edema Neuro: Alert and oriented Results - Labs 02/08/19 06:46 02/08/19 06:46 Abnormal Lab Results - Last 24 Hours (Table) 02/07/19 02/07/19 02/07/19 Range/Units 14:50 14:50 22:15 WBC 11.8 H (3.8-10.6) k/uL Neutrophils # 9.4 H (1.3-7.7) k/uL Sodium 136 L (137-145) mmol/L Potassium (3.5-5.1) mmol/L Carbon Dioxide 21 L (22-30) mmol/L BUN 34 H (7-17) mg/dL Creatinine 2.42 H (0.52-1.04) mg/dL Glucose 132 H (74-99) mg/dL Urine Appearance Cloudy H (Clear) Urine Protein 1+ H (Negative) Ur Leukocyte Esterase Large H (Negative) Urine RBC 6 H (0-5) /hpf Urine WBC 74 H (0-5) /hpf Urine Bacteria Many H (None) /hpf Urine Mucus Rare H (None) /hpf 02/08/19 02/08/19 Range/Units 06:46 06:46 WBC 11.8 H (3.8-10.6) k/uL Neutrophils # 9.5 H (1.3-7.7) k/uL Sodium (137-145) mmol/L Potassium 3.1 L (3.5-5.1) mmol/L Carbon Dioxide (22-30) mmol/L BUN 34 H (7-17) mg/dL Creatinine 2.12 H (0.52-1.04) mg/dL Glucose 135 H (74-99) mg/dL Urine Appearance (Clear) Urine Protein (Negative) Ur Leukocyte Esterase (Negative) Urine RBC (0-5) /hpf Urine WBC (0-5) /hpf Urine Bacteria (None) /hpf Urine Mucus (None) /hpf Diabetes panel 02/07/19 02/08/19 Range/Units 14:50 06:46 Sodium 136 L 139 (137-145) mmol/L Potassium 3.5 3.1 L (3.5-5.1) mmol/L Chloride 101 102 (98-107) mmol/L Carbon Dioxide 21 L 26 (22-30) mmol/L BUN 34 H 34 H (7-17) mg/dL Creatinine 2.42 H 2.12 H (0.52-1.04) mg/dL Glucose 132 H 135 H (74-99) mg/dL Calcium 9.7 9.3 (8.4-10.2) mg/dL AST 22 19 (14-36) U/L ALT 14 13 (4-34) U/L Alkaline Phosphatase 94 92 (38-126) U/L Total Protein 6.8 6.4 (6.3-8.2) g/dL Albumin 3.9 3.6 (3.5-5.0) g/dL Calcium panel 02/07/19 02/08/19 Range/Units 14:50 06:46 Calcium 9.7 9.3 (8.4-10.2) mg/dL Albumin 3.9 3.6 (3.5-5.0) g/dL Pituitary panel 02/07/19 02/08/19 Range/Units 14:50 06:46 Sodium 136 L 139 (137-145) mmol/L Potassium 3.5 3.1 L (3.5-5.1) mmol/L Chloride 101 102 (98-107) mmol/L Carbon Dioxide 21 L 26 (22-30) mmol/L BUN 34 H 34 H (7-17) mg/dL Creatinine 2.42 H 2.12 H (0.52-1.04) mg/dL Glucose 132 H 135 H (74-99) mg/dL Calcium 9.7 9.3 (8.4-10.2) mg/dL Adrenal panel 02/07/19 02/08/19 Range/Units 14:50 06:46 Sodium 136 L 139 (137-145) mmol/L Potassium 3.5 3.1 L (3.5-5.1) mmol/L Chloride 101 102 (98-107) mmol/L Carbon Dioxide 21 L 26 (22-30) mmol/L BUN 34 H 34 H (7-17) mg/dL Creatinine 2.42 H 2.12 H (0.52-1.04) mg/dL Glucose 132 H 135 H (74-99) mg/dL Calcium 9.7 9.3 (8.4-10.2) mg/dL Total Bilirubin 1.0 0.8 (0.2-1.3) mg/dL AST 22 19 (14-36) U/L ALT 14 13 (4-34) U/L Alkaline Phosphatase 94 92 (38-126) U/L Total Protein 6.8 6.4 (6.3-8.2) g/dL Albumin 3.9 3.6 (3.5-5.0) g/dL Assessment and Plan (1) Abdominal pain Narrative/Plan: patient with complaints of constipation, lower abdominal pain, and mild leukocytosis. Reviewing CAT scan I suspect possible mild diverticulitis with partial colonic obstruction at the level of proximal to mid sigmoid colon as the etiology for her symptoms. other etiologies would include ileus secondary to urinary infection. Appreciate urology evaluation. Begin daily Dulcolax suppositories. Continue broad-spectrum antibiotics. Continue bowel rest. Possible nasogastric tube if symptoms persist. No further workup of the patient's distended gallbladder at this time. Do not suspect partial small bowel obstruction based on CAT scan appearance. We'll follow closely. Current Visit: Yes Status: Acute Code(s): R10.9 - UNSPECIFIED ABDOMINAL PAIN SNOMED Code(s): 94973823
[2019-02-08] MEDS: PIPERACILLIN-TAZOBACTAM 3.375 GM in SODIUM CHLORIDE 0.9% 100 ML IVPB SCH ×2 (12:01→22:29)
[2019-02-08] MEDS: DEXTROSE 5%-0.9% NACL 1,000 ML IV SCH (12:02)
--- NOTE | 2019-02-08 13:17 | CONS ---
CONSULTATION REASON FOR CONSULT: Renal failure. HISTORY OF PRESENT ILLNESS: Patient is an 83-year-old female with history of CKD stage IV, secondary to nephrosclerosis with solitary kidney. The patient has been seen at our office previously. However, she has not recently followed up as she states that the GFR has been stable. The patient also has a history of neurogenic bladder and self catheterizes about 4-5 times a day. She has a history of cervical cancer treated with radiation many years ago. The patient was admitted to the hospital with constipation. She has not had a bowel movement for about a week. Serum creatinine was at 2.42. Currently patient is maintained on IV fluids. Her creatinine is down to 2.1 now. Previous creatinine was 2.1 and 1.9 in November of 2017. PAST MEDICAL HISTORY: CKD stage 4, history of cervical cancer status post radiation therapy, history of neurogenic bladder, maintained on self catheterization, being followed by Urology, history of nephrectomy previously on the right side, osteoarthritis. PAST SURGICAL HISTORY: Appendectomy, bowel resection, right nephrectomy. SOCIAL HISTORY: Negative for smoking, drug abuse or alcohol abuse. MEDICATIONS: Medications prior to admission include vitamin D3, Lipitor, Norvasc, sodium bicarb, clonidine, hydralazine. ALLERGIES: None. EXAMINATION: Patient is currently comfortable, awake, not in any acute distress. Alert and oriented x3. Blood pressure was 168/77, heart rate 95 per minute. She is afebrile. Examination of the heart S1, S2. Examination of the lungs, bilateral breath sounds are heard. ABDOMEN: Soft, nontender. Examination of lower extremities shows no significant edema. GUEST SPECIALIST exam grossly intact. LABS: Show sodium 139, potassium 3.1, BUN 34, creatinine 2.1, hemoglobin 12.4 g/dL. UA shows 1+ protein. WBC 74. ASSESSMENT: 1. Acute kidney injury, prerenal, currently improved with IV hydration. 2. Chronic kidney disease, stage IV, secondary to solitary kidney as well as nephrosclerosis. Renal function close to baseline. Previous creatinine 1.9 in 2019. 3. Constipation currently being treated. 4. History of neurogenic bladder with previous history of cervical cancer status post radiation, currently self catheterizes 4-5 times a day. 5. Pyuria, rule out underlying urinary tract infection. 6. Metabolic acidosis maintained on oral sodium bicarb. We may need to adjust the dose depending on labs in a.m. PLAN: Continue with IV fluids. Repeat labs in a.m. Encourage increased oral intake. Treat constipation, treat hypokalemia. Replace potassium. Thank you for this consultation. ELANA / GRAEME: [id number] /
[2019-02-08] MEDS: BISACODYL 10 MG SUPP RECTAL SCH (13:23)
[2019-02-08] MEDS: ATORVASTATIN 10 MG TAB PO SCH (20:45)
[2019-02-08] MEDS: amLODIPine 5 MG TAB PO SCH (20:45)
[2019-02-08] MEDS: DULoxetine HCL 60 MG CAPSULE.DR PO SCH (20:45)
[2019-02-08] MEDS: cloNIDine HCL 0.1 MG TAB PO SCH (20:46)
[2019-02-08] MEDS ORDERED: DULoxetine HCL 60 MG CAPSULE.DR PO SCH (21:00)
[2019-02-09] MEDS: MORPHINE SULFATE 2 MG/ML SYRINGE IVP PRN ×5 (01:18→21:56)
[2019-02-09] MEDS: DEXTROSE 5%-0.9% NACL 1,000 ML IV SCH ×2 (01:20→14:54)
[2019-02-09 07:13] LABS: Basophils % (A) 0 %; Eosinophils # (A) 0.3 k/uL (0-0.7); Eosinophils % (A) 4 %; HCT 34.5 % (34.0-46.0); HGB 11.2 gm/dL (11.4-16.0); Lymphocytes % (A) 13 %; MCHC 32.5 g/dL (31.0-37.0); MCV 95.4 fL (80.0-100.0); Mean Platelet Volume 7.3; Monocytes # (A) 0.9 k/uL (0-1.0); Monocytes % (A) 12 %; Neutrophils # (A) 4.9 k/uL (1.3-7.7); Neutrophils % (A) 66 %; Platelet Count 344 k/uL (150-450); RBC 3.61 m/uL (3.80-5.40); RDW 13.8 % (11.5-15.5); WBC 7.4 k/uL (3.8-10.6)
[2019-02-09 07:26] LABS: Calcium 8.8 mg/dL (8.4-10.2); Potassium 4.4 mmol/L (3.5-5.1)
[2019-02-09] MEDS: BISACODYL 10 MG SUPP RECTAL SCH (07:41)
[2019-02-09] MEDS: hydrALAZINE HCL 25 MG TAB PO SCH ×3 (07:42→21:55)
--- NOTE | 2019-02-09 09:53 | XR ---
EXAMINATION TYPE: XR abdomen 2V DATE OF EXAM: 02/09/2019 6:47 AM CLINICAL HISTORY: Abdominal pain. Obstruction. TECHNIQUE: Upright and supine views of the abdomen were obtained. COMPARISON: 02/07/2019. FINDINGS: There are multiple loops of dilated small bowel within the central and left abdomen with di fferential air-fluid levels. Number of dilated loops of bowel appear less than the prior of 9. There is a levoscoliosis of the thoracolumbar junction, diffuse osseous demineralization and exten sive degenerative change. Surgical clips are seen in the right lower quadrant. No gross evidence of p neumoperitoneum. Atherosclerosis of the branch vessels of the abdominal aorta. Extensive degenerative change of the right hip. IMPRESSION: Improved number dilated small bowel loops in comparison to 02/07/2019. Given differential air-fluid levels persistent small bowel obstruction remains possible.
[2019-02-09] MEDS: PIPERACILLIN-TAZOBACTAM 3.375 GM in SODIUM CHLORIDE 0.9% 100 ML IVPB SCH ×2 (10:23→21:56)
[2019-02-09] MEDS: LACTULOSE 20 GM/30 ML CUP PO SCH ×2 (10:27→21:55)
--- NOTE | 2019-02-09 10:43 | P.PN ---
Subjective Patient is seen in follow-up for acute kidney injury on chronic kidney disease. Renal function is improving. Creatinine 1.93 today. Still hasn't had a bowel movement. Complains of generalized abdominal tenderness. Vital signs are stable. General: The patient appeared well nourished and normally developed. HEENT: Head exam is unremarkable. Neck is without jugular venous distension. LUNGS: Lungs are clear to auscultation and percussion. Breath sounds decreased. HEART: Rate and Rhythm are regular. First and second heart sounds normal. No m urmurs, rubs or gallops. ABDOMEN: Bowel sounds present. Generalized tenderness. EXTREMITITES: No clubbing, cyanosis, or edema. Objective - Vital Signs Vital signs: Vital Signs Temp 98.3 F 02/09/19 07:00 Pulse 91 02/09/19 07:00 Resp 12 02/09/19 07:54 BP 148/73 02/09/19 07:00 Pulse Ox 91 L 02/09/19 07:00 Intake & Output 02/08/19 02/09/19 02/09/19 18:59 06:59 18:59 Intake Total 1290 Output Total 600 Balance 690 Intake: Intake, IV Titration 750 Amount Dextrose 5%-0.9% NaCl 1, 150 000 ml @ 75 mls/hr IV . [id number] [facility] Rx#:[id number] Piperacillin-Tazobactam 3 100 .375 gm In Sodium Chloride 0.9% 100 ml @ 25 mls/hr IVPB Q12H [facility] Rx# :[id number] Sodium Chloride 0.9% 1, 500 000 ml @ 100 mls/hr IV . Q10H [facility] Rx#:[id number] Oral 540 Output: Urine 600 Other: Voiding Method Self-Catheterization Diaper Diaper Self-Catheterization Self-Catheterization # Voids 1 1 - Labs CBC & Chem 7: 02/09/19 06:16 02/09/19 06:16 Labs: Abnormal Lab Results - Last 24 Hours (Table) 02/09/19 02/09/19 Range/Units 06:16 06:16 RBC 3.61 L (3.80-5.40) m/uL Hgb 11.2 L (11.4-16.0) gm/dL Chloride 108 H (98-107) mmol/L BUN 27 H (7-17) mg/dL Creatinine 1.93 H (0.52-1.04) mg/dL Glucose 125 H (74-99) mg/dL Microbiology - Last 24 Hours (Table) 02/07/19 20:55 Blood Culture - Preliminary Blood No Growth after 24 hours 02/07/19 22:15 Urine Culture - Preliminary Urine,Catheterized Assessment and Plan Plan: Assessment: 1. Acute kidney injury mostly prerenal improving with IV hydration. Creatinine 1.93 today. 2. Chronic kidney disease stage IV with baseline creatinine near 2 secondary to nephrosclerosis and left renal atrophy. 3. Constipation. 4. Neurogenic bladder. Patient performs self catheterizations 4-5 times daily. 5. Metabolic acidosis maintained on oral sodium bicarbonate. Better. 6. Hypertension with chronic kidney disease. Controlled. Plan: Maintain normal saline at 75 mL an hour. Add lactulose 3 times daily as needed for constipation. Avoid nephrotoxins. Continue to monitor renal function and urine output.
--- NOTE | 2019-02-09 11:45 | P.PN ---
<Siobhan Dugan A - Last Filed: 02/09/19 11:40> Subjective Progress Note Date: 02/09/19 CHIEF COMPLAINT: Abdominal pain HISTORY OF PRESENT ILLNESS: Patient seen and examined at the bedside. Patient does report some intermittent abdominal pain overnight but states it is improved since admission. She currently denies abdominal pain during examination. She does report some suprapubic discomfort. She denies nausea or vomiting. She reports feeling bloated. She reports passing flatus and having 2 small liquid bowel movements overnight. She reports having a suppository this morning but has not had a bowel movement this morning. Abdominal x-ray reveals improved number of dilated small bowel loops in comparison to 02/07/2019. WBC 7.4. Vital signs are stable. Patient is afebrile. PHYSICAL EXAM: VITAL SIGNS: Reviewed. GENERAL: Well-developed in no acute distress. HEENT: No sclera icterus. Extraocular movements grossly intact. Moist buccal mucosa. Head is atraumatic, normocephalic. ABDOMEN: Soft. Distended. No pain with palpation. Suprapubic tenderness. NEUROLOGIC: Alert and oriented. Cranial nerves II through XII grossly intact. ASSESSMENT: 1. Abdominal pain, possible mild diverticulitis with partial colonic obstruction the level of proximal to mid sigmoid colon. Cannot exclude ileus secondary to UTI PLAN: 1. Continue antibiotics 2. Continue daily Dulcolax suppositories 3. Nothing by mouth 4. Patient will be reevaluated by Dr. Miller this afternoon Nurse practitioner note has been reviewed by physician. Signing provider agrees with the documented findings, assessment, and plan of care. Objective - Vital Signs Vital signs: Vital Signs Temp 98.3 F 02/09/19 07:00 Pulse 91 02/09/19 07:00 Resp 12 02/09/19 07:54 BP 148/73 02/09/19 07:00 Pulse Ox 91 L 02/09/19 07:00 Intake & Output 02/08/19 02/09/19 02/09/19 18:59 06:59 18:59 Intake Total 1290 Output Total 600 Balance 690 Intake: Intake, IV Titration 750 Amount Dextrose 5%-0.9% NaCl 1, 150 000 ml @ 75 mls/hr IV . [id number] [facility] Rx#:[id number] Piperacillin-Tazobactam 3 100 .375 gm In Sodium Chloride 0.9% 100 ml @ 25 mls/hr IVPB Q12H [facility] Rx# :[id number] Sodium Chloride 0.9% 1, 500 000 ml @ 100 mls/hr IV . Q10H [facility] Rx#:[id number] Oral 540 Output: Urine 600 Other: Voiding Method Self-Catheterization Diaper Diaper Self-Catheterization Self-Catheterization # Voids 1 1 - Labs CBC & Chem 7: 02/09/19 06:16 02/09/19 06:16 Labs: Abnormal Lab Results - Last 24 Hours (Table) 02/09/19 02/09/19 Range/Units 06:16 06:16 RBC 3.61 L (3.80-5.40) m/uL Hgb 11.2 L (11.4-16.0) gm/dL Chloride 108 H (98-107) mmol/L BUN 27 H (7-17) mg/dL Creatinine 1.93 H (0.52-1.04) mg/dL Glucose 125 H (74-99) mg/dL Microbiology - Last 24 Hours (Table) 02/07/19 20:55 Blood Culture - Preliminary Blood No Growth after 24 hours 02/07/19 22:15 Urine Culture - Preliminary Urine,Catheterized <Soham Miller - Last Filed: 02/09/19 12:49> Subjective as above. Patient continues to have bloating and some cramps. Overall pain seems improved. She has had a few small liquid stools. She has not passing large volumes of flatus reportedly. Today's x-ray continue to show bowel distention. I still clinically suspect partial colonic obstruction mid sigmoid. Hopefully this will improve with bowel rest and antibiotics. If symptoms persist we'll plan on prepped barium enema. Unfortunately surgical intervention would likely result in sigmoid colectomy with end ostomy. Patient was informed of the current clinical scenario in detail. Objective - Vital Signs Vital signs: Vital Signs Temp 98.3 F 02/09/19 07:00 Pulse 91 02/09/19 07:00 Resp 12 02/09/19 07:54 BP 148/73 02/09/19 07:00 Pulse Ox 91 L 02/09/19 07:00 Intake & Output 02/08/19 02/09/19 02/09/19 18:59 06:59 18:59 Intake Total 1290 Output Total 600 Balance 690 Intake: Intake, IV Titration 750 Amount Dextrose 5%-0.9% NaCl 1, 150 000 ml @ 75 mls/hr IV . [id number] [facility] Rx#:[id number] Piperacillin-Tazobactam 3 100 .375 gm In Sodium Chloride 0.9% 100 ml @ 25 mls/hr IVPB Q12H [facility] Rx# :[id number] Sodium Chloride 0.9% 1, 500 000 ml @ 100 mls/hr IV . Q10H [facility] Rx#:[id number] Oral 540 Output: Urine 600 Other: Voiding Method Self-Catheterization Diaper Diaper Self-Catheterization Self-Catheterization # Voids 1 1 - Labs CBC & Chem 7: 02/09/19 06:16 02/09/19 06:16 Labs: Abnormal Lab Results - Last 24 Hours (Table) 02/09/19 02/09/19 Range/Units 06:16 06:16 RBC 3.61 L (3.80-5.40) m/uL Hgb 11.2 L (11.4-16.0) gm/dL Chloride 108 H (98-107) mmol/L BUN 27 H (7-17) mg/dL Creatinine 1.93 H (0.52-1.04) mg/dL Glucose 125 H (74-99) mg/dL Microbiology - Last 24 Hours (Table) 02/07/19 20:55 Blood Culture - Preliminary Blood No Growth after 24 hours 02/07/19 22:15 Urine Culture - Preliminary Urine,Catheterized Assessment and Plan (1) Abdominal pain Current Visit: Yes Status: Acute Code(s): R10.9 - UNSPECIFIED ABDOMINAL PAIN SNOMED Code(s): 03404697
[2019-02-09] MEDS: SODIUM BICARBONATE TAB 650 MG TAB PO SCH ×2 (12:21→21:55)
--- NOTE | 2019-02-09 18:01 | PN ---
PROGRESS NOTE DATE OF SERVICE: 02/09/2019 The patient is an 83-year-old pleasant white female admitted to the hospital with abdominal pain, severe constipation, nausea, vomiting, on and off for the last few days duration. CT scan at the time of admission to the hospital showed dilated loops of small bowel consistent with partial small-bowel obstruction. The patient was seen by Dr. Miller yesterday who thinks the patient has possible acute diverticulitis with partial colonic obstruction. She is presently on broad-spectrum antibiotics. She still continues to complain of abdominal distention, abdominal pain. She has not passed any flatus or had a bowel movement so far. PHYSICAL EXAMINATION: She appears comfortable. No apparent distress. VITAL SIGNS: Stable. Blood pressure is 143/73, pulse 94, temperature 98.1. HEENT examination unremarkable. Conjunctivae pink. Sclerae anicteric. Oral cavity no lesions. NECK: No JVD or lymph node enlargement. CHEST: Clear to auscultation. HEART: Regular rate and rhythm. ABDOMEN: Soft. It was distended. There was mild tenderness in the epigastric area. Rest of the abdomen was tympanic. EXTREMITIES: No pedal edema. SKIN: No rashes. NEUROLOGIC: Alert and oriented x3. No focal deficits. LABS: WBC 7.4, hemoglobin 11.2, platelets normal. BUN 27, creatinine 1.93. IMPRESSION: Abdominal pain, abdominal distention, possible sigmoid colonic obstruction with a component of acute sigmoid diverticulitis. Dr. Miller following the patient closely. Remains on broad-spectrum antibiotics with Zosyn. She still remains symptomatic. Abdominal x-ray from today showed some improvement in the small bowel dilated loops. RECOMMENDATIONS: 1. Continue with broad-spectrum antibiotics. 2. Keep n.p.o. 3. Repeat abdominal x-rays tomorrow morning. Thank you for this consultation. We will follow with you closely during her hospital stay. MMODL / IJN: [id number] /
--- NOTE | 2019-02-09 19:17 | PN ---
PROGRESS NOTE DATE OF SERVICE: 02/09/2019. NEW DATA: She is 5 foot 4 inches the height and weight 68.039 kg. BSA 1.73 m2. BMI is 25.7 kg/m2. ALLERGY: Is unknown. Patient is seen today and evaluated and she still complained that she had occasional abdominal pain and she is receiving pain medication for that. She was seen by Dr. Miller and she had another x-ray of the abdomen as well, but she is not eating and no not passing any gases. With the underlying small bowel obstruction with associated adhesion was considered on admission but also found that she had a UTI and she is on antibiotic, which is piperacillin sodium/tazobactam sodium 3.375 and she is getting that every 12 hours. She is also getting sodium bicarb 650 twice a day. She had a consultation with Dr. Phelps, Dr. Arrington, and Dr. Gautam and as well as Dr. Miller. She had history of hypertension with hypertensive heart disease, history of severe degenerative arthritis of the right hip and causing severe pain with ambulation. She had history of hyperlipidemia and also depressive disorder. Today on physical exam [id number], her temperature was 98.5 F oral. Her pulse rate 90, her respiratory rate 18, her blood pressure ranging between 148/73 and 163/81 with the pulse ox in average of 91-90 on room air. LABORATORY: Indicating that today on the 09 of February, her white count improved to 7.4, and with the underlying element of mild diverticulitis. She has a hemoglobin is 11.2 with hematocrit 34.5, and her platelet count is 344. Her sodium 138, potassium 4.4, with the potassium supplementation by protocol. Her chloride 108, carbon dioxide 26, improved from admission 21. She has a BUN of improving from 34-27 and her creatinine improved from 2.42-1.93 with the mild hydration. Her glucose is average 125 and her calcium is 8.8 and her alkaline phosphatase is normal 92 with an albumin of 3.6, and total bilirubin is 0.8. AST and ALT within normal limits. Her urine was indicator of large leukocyte esterase and WBC 74 with pyuria and the possibility of infection was present and UTI. CURRENT EXAMINATION: The patient was conscious, alert, oriented x3, and she is sitting on the edge of the bed. We asked also physical therapy and they started to ambulate the patient as well in the hallway. However, still no results on the bowel movement and no flat flatus. HEENT: On exam HEENT the head was normocephalic, atraumatic. The pupils equal and reactive. Oropharynx she had upper plate dentures. The neck was supple. No JVD. No thyromegaly. No lymphadenopathy. Trachea midline. The chest was clear to auscultation percussion with the underlying kyphoscoliosis and asymmetry of the chest. Heart: PMI in the 5th intercostal space with normal S1, S2. No gallop. The abdomen was tender and tympanitic and on percussion resonant with no passing gases so far. We discussed with the patient the NG tube, but we will wait for 1 day more that will be her third day is tomorrow and if no resolution, probably we may have to put the NG tube and intermittent suction. We will add the PPI at that time. EXTREMITIES: No edema and positive pulses and as mentioned, she was able to ambulate and her blood pressure was stable. ASSESSMENT: 1. Retention of the stool. 2. Small bowel obstruction with secondary adhesion with multiple surgical intervention before. 3. Hydroureter hydronephrosis with the self catheterization. She had irradiation of the cervix in the past. 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 PLAN: We will be still watching and waiting till tomorrow. We will see if that will improve or passing gases or having a bowel movement and she has plasma lactic acid was normal on admission as well. Further treatment will be depend on the patient's condition and if she recovered or not and continue the subspecialty and the Nephrology as well as the surgery and Urology was involved in the care at this time. MMODL / IJN: [id number] /
[2019-02-09] MEDS: amLODIPine 5 MG TAB PO SCH (21:55)
[2019-02-09] MEDS: DULoxetine HCL 60 MG CAPSULE.DR PO SCH (21:55)
[2019-02-09] MEDS: cloNIDine HCL 0.1 MG TAB PO SCH (21:55)
[2019-02-09] MEDS: ATORVASTATIN 10 MG TAB PO SCH (21:55)
[2019-02-10] MEDS: DEXTROSE 5%-0.9% NACL 1,000 ML IV SCH ×2 (02:46→17:04)
[2019-02-10] MEDS: MORPHINE SULFATE 2 MG/ML SYRINGE IVP PRN ×4 (03:39→16:43)
[2019-02-10 07:33] LABS: Calcium 9.4 mg/dL (8.4-10.2); Magnesium 2.6 mg/dL (1.6-2.3); Potassium 4.4 mmol/L (3.5-5.1)
[2019-02-10 07:35] LABS: Basophils # (A) 0.1 k/uL (0-0.2); Basophils % (A) 2 %; Eosinophils # (A) 0.2 k/uL (0-0.7); Eosinophils % (A) 4 %; HGB 11.9 gm/dL (11.4-16.0); Lymphocytes # (A) 0.7 k/uL (1.0-4.8); Lymphocytes % (A) 12 %; MCHC 31.4 g/dL (31.0-37.0); MCV 95.7 fL (80.0-100.0); Mean Platelet Volume 7.4; Monocytes # (A) 0.6 k/uL (0-1.0); Monocytes % (A) 9 %; Neutrophils # (A) 4.4 k/uL (1.3-7.7); Neutrophils % (A) 70 %; Platelet Count 358 k/uL (150-450); RBC 3.97 m/uL (3.80-5.40); WBC 6.3 k/uL (3.8-10.6)
[2019-02-10] MEDS: hydrALAZINE HCL 25 MG TAB PO SCH ×2 (08:26→16:43)
[2019-02-10] MEDS: BISACODYL 10 MG SUPP RECTAL SCH (08:27)
[2019-02-10] MEDS: LACTULOSE 20 GM/30 ML CUP PO SCH (08:27)
[2019-02-10] MEDS: SODIUM BICARBONATE TAB 650 MG TAB PO SCH (08:28)
--- NOTE | 2019-02-10 10:25 | CDI ---
Documentation Clarification Form Date: 02/10/2019 10:16:05 AM From: Martina MataNORMA, CCDS Admit Date: 02/07/2019 8:34:00 PM Patient Name: Angelica Ling Visit Number: [id number] Discharge Date: ATTENTION: The Clinical Documentation Specialists (CDI) and [facility] Coding Staff appreciate your assistance in clarifying documentation. Please respond to the clarification below the line at the bottom and electronically sign. The CDI & [facility] Coding staff will review the response and follow-up if needed. Please note: Queries are made part of the Legal Health Record. If you have any questions, please contact the author of this message via ITS. Dr. Rodriguez Engel: Per the attending 02/09 progress note: "She is self catheterization and she has underlying urinary tract infection." History/Risk Factors: Cervical cancer status post radiation, Appendectomy for gangrenous appendix, chronic diarrhea, hypertension, CKD IV & atrophic left kidney, rectal surgery with removal of polyps & severe osteoarthritis in right hip with difficulty walking. Clinical Indicators: Presented with abdominal pain, diagnosed with sigmoid diverticulitis & also partial small bowel obstruction. LAB: WBC 11.8^, Neut 9.4^, Na 136*, BUN 34^, Creatinine 2.42^, glucose 132^ Urinalysis: Cloudy, 1+ protein, large esterase, RBC 6, WBC 74. Urine culture: Preliminary, pending final Treatment: IV fluid bolus, IV Rocephin, IV fluid rate 100, IV Zofran, IV Morphine, IV Zosyn, IV Kcl, IV Dextrose/Na Cl In your professional opinion, can you please clarify the etiology of the UTI, if known? UTI related to self catheterization UTI not related to self catheterization Other condition, please specify Unable to determine If an infective organism is present, please specify cause and effect relati May 2017) UTI related to self-catheterization high probability. MTDD
[2019-02-10] MEDS: PIPERACILLIN-TAZOBACTAM 3.375 GM in SODIUM CHLORIDE 0.9% 100 ML IVPB SCH (11:27)
--- NOTE | 2019-02-10 11:50 | P.PN ---
Subjective Patient is seen in follow-up for acute kidney injury on chronic kidney disease. Renal function fairly stable. Had a small bowel movement this morning. Feels thirsty. Vital signs are stable. General: The patient appeared well nourished and normally developed. HEENT: Head exam is unremarkable. Neck is without jugular venous distension. LUNGS: Lungs are clear to auscultation and percussion. Breath sounds decreased. HEART: Rate and Rhythm are regular. First and second heart sounds normal. No murmurs, rubs or gallops. ABDOMEN: Bowel sounds present. Generalized tenderness. EXTREMITITES: No clubbing, cyanosis, or edema. Objective - Vital Signs Vital signs: Vital Signs Temp 98 F 02/10/19 07:00 Pulse 88 02/10/19 07:00 Resp 12 02/10/19 07:00 BP 164/78 02/10/19 07:00 Pulse Ox 90 L 02/10/19 07:00 Intake & Output 02/09/19 02/10/19 02/10/19 18:59 06:59 18:59 Intake Total 700 Balance 700 Intake: Intake, IV Titration 700 Amount Dextrose 5%-0.9% NaCl 1, 600 000 ml @ 75 mls/hr IV . [id number] [facility] Rx#:[id number] Piperacillin-Tazobactam 3 100 .375 gm In Sodium Chloride 0.9% 100 ml @ 25 mls/hr IVPB Q12H [facility] Rx# :[id number] Oral 0 Other: Voiding Method Diaper Diaper Self-Catheterization Self-Catheterization Self-Catheterization # Voids 1 2 - Labs CBC & Chem 7: 02/10/19 06:27 02/10/19 06:27 Labs: Abnormal Lab Results - Last 24 Hours (Table) 02/10/19 02/10/19 Range/Units 06:27 06:27 Lymphocytes # 0.7 L (1.0-4.8) k/uL Chloride 109 H (98-107) mmol/L BUN 23 H (7-17) mg/dL Creatinine 2.05 H (0.52-1.04) mg/dL Glucose 136 H (74-99) mg/dL Magnesium 2.6 H (1.6-2.3) mg/dL Microbiology - Last 24 Hours (Table) 02/07/19 22:15 Urine Culture - Final Urine,Catheterized Klebsiella pneumoniae Escherichia coli 02/07/19 20:55 Blood Culture - Preliminary Blood No Growth after 48 hours Assessment and Plan Plan: Assessment: 1. Acute kidney injury mostly prerenal improved with IV hydration. Creatinine fairly stable at 2.05 today. 2. Chronic kidney disease stage IV with baseline creatinine near 2 secondary to nephrosclerosis and left renal atrophy. 3. Constipation. On bowel rest. 4. Neurogenic bladder. Patient performs self catheterizations 4-5 times daily. 5. Metabolic acidosis maintained on oral sodium bicarbonate. 6. Hypertension with chronic kidney disease. Controlled. 7. UTI with urine culture positive for Klebsiella and E. coli maintained on antibiotics. Plan: Maintain normal saline at 75 mL an hour - heplock once tolerating po intake. Avoid nephrotoxins. Continue to monitor renal function and urine output.
--- NOTE | 2019-02-10 14:25 | P.PN ---
<Siobhan Dugan Tiffany - Last Filed: 02/10/19 14:19> Subjective Progress Note Date: 02/10/19 CHIEF COMPLAINT: Abdominal pain HISTORY OF PRESENT ILLNESS: Patient seen and examined at the bedside. Patient reports persistent abdominal pain. She states it has not improved since yesterda y. she denies having any further bowel movements. She reports passing minimal amounts of flatus. She states she is belching a lot this morning. She denies nausea or vomiting. WBC 6.3. PHYSICAL EXAM: VITAL SIGNS: Reviewed. GENERAL: Well-developed in no acute distress. HEENT: No sclera icterus. Extraocular movements grossly intact. Moist buccal mucosa. Head is atraumatic, normocephalic. ABDOMEN: Distended. Abdomen appears more firm today. Diffuse mild tenderness. Suprapubic tenderness. NEUROLOGIC: Alert and oriented. Cranial nerves II through XII grossly intact. ASSESSMENT: 1. Abdominal pain, possible mild diverticulitis with partial colonic obstruction the level of proximal to mid sigmoid colon. Cannot exclude ileus secondary to UTI PLAN: 1. Continue antibiotics 2. Continue daily Dulcolax suppositories 3. Nothing by mouth 4. Patient will be reevaluated by Dr. Miller this afternoon Nurse practitioner note has been reviewed by physician. Signing provider agrees with the documented findings, assessment, and plan of care. Objective - Vital Signs Vital signs: Vital Signs Temp 98 F 02/10/19 07:00 Pulse 88 02/10/19 07:00 Resp 12 02/10/19 07:00 BP 164/78 02/10/19 07:00 Pulse Ox 90 L 02/10/19 07:00 Intake & Output 02/09/19 02/10/19 02/10/19 18:59 06:59 18:59 Intake Total 700 Balance 700 Intake: Intake, IV Titration 700 Amount Dextrose 5%-0.9% NaCl 1, 600 000 ml @ 75 mls/hr IV . [id number] [facility] Rx#:[id number] Piperacillin-Tazobactam 3 100 .375 gm In Sodium Chloride 0.9% 100 ml @ 25 mls/hr IVPB Q12H [facility] Rx# :[id number] Oral 0 Other: Voiding Method Diaper Diaper Self-Catheterization Self-Catheterization Self-Catheterization # Voids 1 2 - Labs CBC & Chem 7: 02/10/19 06:27 02/10/19 06:27 Labs: Abnormal Lab Results - Last 24 Hours (Table) 02/10/19 02/10/19 Range/Units 06:27 06:27 Lymphocytes # 0.7 L (1.0-4.8) k/uL Chloride 109 H (98-107) mmol/L BUN 23 H (7-17) mg/dL Creatinine 2.05 H (0.52-1.04) mg/dL Glucose 136 H (74-99) mg/dL Magnesium 2.6 H (1.6-2.3) mg/dL Microbiology - Last 24 Hours (Table) 02/07/19 22:15 Urine Culture - Final Urine,Catheterized Klebsiella pneumoniae Escherichia coli 02/07/19 20:55 Blood Culture - Preliminary Blood No Growth after 48 hours <Soham Miller - Last Filed: 02/10/19 20:41> Subjective As above. Patient's abdominal distention slightly increased today from yesterday despite patient and nursing staff stating that she has had increased flatus and loose stools today. Patient had episode of A. fib with rapid ventricular response. White blood cell count normal. She is afebrile without tachycardia. Clinical suspicion of persistent partial colonic obstruction remains. Discussed in detail with the family. I brought a computer into the room and showed the CAT scan films to the patient and her daughter and granddaughter. We will place nasogastric tube this evening. Await cardiac evaluation. Exploratory laparotomy versus barium enema will be performed tomorrow morning depending on the patient's clinical status. Possible need for partial colectomy with ostomy viewed in detail. Objective - Vital Signs Vital signs: Vital Signs Temp 97.9 F 02/10/19 15:00 Pulse 98 02/10/19 15:00 Resp 14 02/10/19 15:00 BP 161/85 02/10/19 15:00 Pulse Ox 90 L 02/10/19 07:00 Intake & Output 02/10/19 02/10/19 02/11/19 06:59 18:59 06:59 Intake Total 600 Balance 600 Intake: Intake, IV Titration 600 Amount Dextrose 5%-0.9% NaCl 1, 600 000 ml @ 75 mls/hr IV . [id number] [facility] Rx#:[id number] Other: Voiding Method Diaper Self-Catheterization Self-Catheterization # Voids 2 2 - Labs CBC & Chem 7: 02/10/19 17:59 02/10/19 06:27 Labs: Abnormal Lab Results - Last 24 Hours (Table) 02/10/19 02/10/19 02/10/19 Range/Units 06:27 06:27 17:59 Lymphocytes # 0.7 L (1.0-4.8) k/uL Lymphocytes # (Manual) 0.65 L (1.0-4.8) k/uL Monocytes # (Manual) 1.11 H (0-1.0) k/uL Chloride 109 H (98-107) mmol/L BUN 23 H (7-17) mg/dL Creatinine 2.05 H (0.52-1.04) mg/dL Glucose 136 H (74-99) mg/dL Magnesium 2.6 H (1.6-2.3) mg/dL Microbiology - Last 24 Hours (Table) 02/07/19 22:15 Urine Culture - Final Urine,Catheterized Klebsiella pneumoniae Escherichia coli 02/07/19 20:55 Blood Culture - Preliminary Blood No Growth after 48 hours Assessment and Plan (1) Abdominal pain Current Visit: Yes Status: Acute Code(s): R10.9 - UNSPECIFIED ABDOMINAL PAIN SNOMED Code(s): 75068489
--- NOTE | 2019-02-10 16:28 | P.PN ---
Progress Note - Text Progress Note Date: 02/10/19 The patient is an 83-year-old woman with a history of carcinoma involving the right distal ureter. She underwent a right distal ureterectomy in October 2008. She performs intermittent self-catheterization (CIC) for chronic urinary retention. A renal ultrasound in June 2009 showed evidence of right hydronephrosis, which is chronic. 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 The serum creatinine level at that time was 2.30. She subsequently failed to follow-up, but states that she continues to perform CIC 6 times daily. I reviewed her computed tomography scan, which shows the chronic right hydronephrosis. If within the intrarenal collecting system can be explained by the fact that she self catheterizes and has a refluxing ureteral reimplant. She is felt to be urologically stable, and I do not feel that any further evaluation or change in her management is warranted. Please notify me if I can be of any further assistance.
[2019-02-10] MEDS ORDERED: METOPROLOL TARTRATE 5 MG/5 ML VIAL IVP PRN (17:12)
[2019-02-10] MEDS ORDERED: DILTIAZEM 5 MG/ML 5 ML VIAL IVP STA (17:29)
[2019-02-10] MEDS ORDERED: HEPARIN SODIUM,PORCINE 5,000 UNIT/ML 1 ML VIAL IV PRN (17:39)
[2019-02-10] MEDS ORDERED: HEPARIN SODIUM,PORCINE 5,000 UNIT/ML 1 ML VIAL IV ONE (17:39)
[2019-02-10] MEDS ORDERED: niCARdipine 20 MG in SODIUM CHLORIDE 0.9% 192 ML IV ONE (17:40)
[2019-02-10] MEDS: HEPARIN SOD,PORK IN 0.45% NACL 25,000 UNIT in 0.45% NACL 1 250ML.BAG IV SCH (18:29)
--- NOTE | 2019-02-10 18:37 | PN ---
PROGRESS NOTE DATE OF SERVICE: February 10, 2019. DATA: FULL CODE Height is 5 feet 4 inches, weight 68.039 kg. Her next is the BSA 1.73 m2. BMI 25.7 kg/m2. ALLERGY: Is unknown. The patient seen today evaluated [id number], discussed with her the current problem and reviewed the chart for the computer. Found that she had a urinary tract infection with underlying E coli and Klebsiella pneumonia and she was on antibiotic, which is piperacillin tazobactam, which is not maximum sensitivity and we changed her to Rocephin 1 g q.12 hours with the sensitivity less than 1. LABORATORY: Today on the 17 indicating that her white count is normalized to 6.3 and her hemoglobin 11.9 with hematocrit 38.0, and platelet count 358. She has her sodium 143, potassium 4.4, chloride 109, carbon dioxide 28, anion gap of 6, BUN 23, creatinine 2.05, and her estimated glomerular filtration rate is 25 with the chronic kidney disease stage III, and she had atrophy of the left kidney as well and followed by Nephrology, Dr. Gautam, and Dr. Arrington. Her blood glucose 136, however, this lab is not fasting. Calcium is 9.4, magnesium 2.6. EXAMINATION: Temperature today 97.9 F oral and her heart rate was 98, regular, and respiratory rate was 14 and she had some shortness of breath and blood pressure was 161/85 with a mean 110. She is on nasal cannula 2 L. The patient admitted with stool retention and a CT scan of the abdomen and ultrasound of the gallbladder indicating that the liver was normal 11.6 cm. Gallbladder wall 0.2 and right kidney was 9.5, multiplied by 4.5, multiplied by 5.5. Stated that there is evidence of sonographic Villagomez sign and right kidney was mild hydronephrosis and hydroureter with the ureter dilated to 4.9 cm with the conclusion that the patient has moderately dilated gallbladder, 11 x 5.5 cm consistent with cholecystitis. However, clinically, the patient examined by Dr. Miller and by myself. There is no maximum tenderness on the left lower quadrant and the left sided colon and the mid abdomen with the underlying small bowel obstruction. She has also bladder gallbladders correction cholelithiasis. She had CT scan of the abdomen and showed that impression dilated small bowel suggestive of a partial mechanical small bowel obstruction and the colonic diverticulosis without diverticulitis and right-sided hydronephrosis with evidence of air reflux in the right upper collecting system. The right-sided pyelonephritis is possible and the patient has been self catheterization with the failure of urination, she had left renal is atrophy by CT scan and she had dilated gallbladder with suggestion of cholecystitis and bibasilar pulmonary infiltrate and atelectasis. The patient was seen by several consulting, seen by Dr. Cecilio Munoz and Dr. Gautam, Cecilio Munoz, urologist, as well as Dr. Gautam the asphalt roller operator and as well as Dr. Dugan the management accounts manager and Dr. Miller. Everybody agreed on wait and see to see give a chance to the small bowel to improve. On the physical exam: The patient has high blood pressure. She had still pain. She felt there is some improvement and passing a small amount of stools and with decision to wait. This afternoon, the patient developed atrial fibrillation with rapid ventricular response. They did the EKG, I did order it, found that heart rate between 130 with the atrial fib. The patient subsequently transferred to the electronic device monitor with the consultation with the Cardiology and meanwhile I did hold the Norvasc, "Amlodipine" and starting on Lopressor 2.5 IV push q.6 hours p.r.n. with the rapid ventricular response until the cardiology will see her and we ordered also echocardiogram in a.m. ASSESSMENT: 1. She has multiple medical problems: 2. Stool retention. 3. Small bowel obstruction, mechanical. 4. Chronic kidney disease stage 4 with loss of function of the left kidney and the right kidney hydronephrosis, hydroureter. She has also musculoskeletal advanced right hip arthritis, which has been resistant to have surgical intervention. 5. Atrial fibrillation with rapid ventricular response. PLAN: As mentioned was transferred to telemetry monitored bed. She is currently on 375 bed 1 and we started her on the Lopressor and consultation with the Cardiology and continue on a clear liquid diet and I did discontinue the amlodipine as well as order the echocardiograms with the changes in the status of the patient. This is acute changes and we will check tomorrow. MMODL / IJN: [id number] /
[2019-02-10 18:39] LABS: INR 0.9 (<1.2); Partial Thromboplastin Time 25.1 sec (22.0-30.0); Prothrombin Time 9.8 sec (9.0-12.0)
[2019-02-10 18:45] LABS: HCT 37.7 % (34.0-46.0); Hypochromasia Slight; MCH 30.2 pg (25.0-35.0); MCHC 31.9 g/dL (31.0-37.0); MCV 94.8 fL (80.0-100.0); Mean Platelet Volume 7.5; Platelet Count 432 k/uL (150-450); RBC 3.97 m/uL (3.80-5.40); RDW 13.7 % (11.5-15.5); WBC 6.5 k/uL (3.8-10.6)
--- NOTE | 2019-02-10 19:02 | P.PN ---
Progress Note - Text Progress Note Date: 02/10/19 date of service 02/10/2019 at 6:58 PM and this is a second visit for the patient. Patient was on the fourth floor with the underlying history of small bowel obstruction , urinary tract infection with or the possibility of self- catheterization controlling the infection as patient has urinary retention and has been doing that for years.. Patient has small bowel mechanical obstruction, and in the afternoon she developed acute atrial fibrillation with a rapid ventricular response, they called me in the office and subsequently patient transferred to the monitoring analyst for where she started on Cardizem drip has consultation with the cardiology for evaluation and treatment. Patient has severe pain in the right hip and the ASSOCIATED WITH ADVANCED DEGENERATIVE ARTHRITIS. SHE HAS SEVERE PAIN IN THE ABDOMEN STILL DISTENDED AND PROGRESSIVELY DYSPHAGIA AND AT THAT TIME DR. ORTIZ DID ORDER a nasogastric tube placed with suction and possible taken her to the OR tomorrow for exploration with the possible adhesion and nontender results small bowel obstruction. Cardiology placed her on a Cardizem drips. I did see the patient now she is with the NG tube in conscious alert and sleepy. And comfortable however the pain in the abdomen is intermittent. Patient with multiple medical problem and prognosis is guarded.
[2019-02-10 19:19] LABS: Band Neutrophils % 12 %; Lymphocytes # (M) 0.65 k/uL (1.0-4.8); Monocytes # (M) 1.11 k/uL (0-1.0); Neutrophils % (M) 58 %; Nucleated Red Blood Cells 0 /100 WBC (0-0); Total Cells Counted 100
[2019-02-11] MEDS: DULoxetine HCL 60 MG CAPSULE.DR PO SCH ×2 (00:49→20:48)
[2019-02-11] MEDS: cloNIDine HCL 0.1 MG TAB PO SCH (00:49)
[2019-02-11] MEDS: ATORVASTATIN 10 MG TAB PO SCH ×2 (00:49→20:48)
[2019-02-11] MEDS: LACTULOSE 20 GM/30 ML CUP PO SCH ×3 (00:50→20:48)
[2019-02-11] MEDS: SODIUM BICARBONATE TAB 650 MG TAB PO SCH ×2 (00:50→09:39)
[2019-02-11] MEDS: hydrALAZINE HCL 25 MG TAB PO SCH ×2 (00:50→09:38)
[2019-02-11] MEDS: DEXTROSE 5%-0.9% NACL 1,000 ML IV SCH ×2 (07:06→20:52)
--- NOTE | 2019-02-11 07:12 | XR ---
EXAMINATION TYPE: XR abdomen 1V DATE OF EXAM: 02/11/2019 7:03 AM CLINICAL HISTORY: Pain and constipation. TECHNIQUE: Single upright KUB image of the abdomen is obtained. COMPARISON: Abdominal x-ray from [address] abdomen and pelvis from 4 days ago. FINDINGS: There is new nasogastric tube projecting below diaphragm extending to right of midline like ly terminating in the proximal duodenum. Some improvement in gaseous dilated left-sided small bowel l oops which are still gas-filled and slightly prominent. Pelvis is not included on image. The bibasila r opacities. No pneumoperitoneum. Overlying EKG leads are present. S-shaped scoliosis is seen. IMPRESSION:New Nasogastric tube terminates in proximal duodenum. Some improvement in proximal small b owel gas-filled dilatation.
[2019-02-11 07:55] LABS: Calcium 9.9 mg/dL (8.4-10.2); Magnesium 2.4 mg/dL (1.6-2.3); Potassium 3.8 mmol/L (3.5-5.1)
[2019-02-11 08:09] LABS: T4, Free (Free Thyroxine) 1.48 ng/dL (0.78-2.19)
[2019-02-11 08:19] LABS: HCT 39.6 % (34.0-46.0); HGB 12.3 gm/dL (11.4-16.0); Hypochromasia Slight; MCH 29.7 pg (25.0-35.0); MCV 95.8 fL (80.0-100.0); Mean Platelet Volume 7.7; Platelet Count 410 k/uL (150-450); RBC 4.14 m/uL (3.80-5.40); RDW 13.9 % (11.5-15.5); WBC 6.2 k/uL (3.8-10.6)
--- NOTE | 2019-02-11 08:25 | P.CRDCN ---
History of Present Illness Consult date: 02/11/19 Requesting physician: Rodriguez Engel Consult reason: atrial fibrillation Chief complaint: abdominal pain History of present illness: this is a pleasant 83-year-old female with documented history of hypertension, hyperlipidemia, chronic renal insufficiency,she is a nondiabetic and nonsmoker, initially presented to the hospital with symptoms of moderate to severe abdominal painand was found to have a bowel obstruction, the plan is to proceed with surgery for that. Last evening patient went into atrial fibrillation with a rapid ventricular response, has since converted to normal sinus rhythm. Cardiology consultation was requested for preop clearance as well as for the atrial fibrillation. According to the patient, she denies being told to have atrial fibrillation in the past however she does state that she had an irregular heartbeat at the time of her appendix surgery several years ago.her initial EKG on presentation here showed a normal sinus rhythm with occasional PVCs and PACs. EKG from last night showed atrial fibrillation with a rapid ventricular response.chest x-ray was performed this morning and is yet pending.blood pressure 148/74 with a heart rate in the 80s, 96% on 3 L of oxygen. Her white blood cell count is normal, hemoglobin 12.0, platelet count 432.admission labs, sodium 138, potassium 4.4, BUN 27, creatinine 1.9.this morning, sodium 145, potassium 3.8, BUN 20, creatinine 2.0, free T4 1 0.4, magnesium 2.4. Patient currently hasan NG tube in place, she is currently on IV heparin, was given IV Cardizem last night. Is not currently on IV Cardizem dr daniel.at the time of my examination, her abdominal pain since the NG tube was placed has resolved. Overall she states that she feels well this morning. Patient denies any recent chest discomfort or palpitations, no recent episodes of any shortness of breath, overall has been quite physically active with no symptoms. Past Medical History Past Medical History: Hyperlipidemia, Hypertension, Osteoarthritis (OA), Renal Disease Additional Past Medical History / Comment(s): one functioning kidney, cervical ca, urethral ca, right hip pain History of Any Multi-Drug Resistant Organisms: None Reported Past Surgical History: Appendectomy, Bowel Resection Additional Past Surgical History / Comment(s): bowel resection, kidney tumor removed Past Psychological History: No Psychological Hx Reported Smoking Status: Never smoker Past Alcohol Use History: None Reported Past Drug Use History: None Reported Medications and Allergies Home Medications Medication Instructions Recorded Confirmed Type Atorvastatin [Lipitor] 10 mg PO Q48H 02/07/19 02/09/19 History Cholecalciferol [Vitamin D3 (25 1,000 unit PO DAILY 02/07/19 02/07/19 History Mcg = 1000 Iu)] DULoxetine HCL [Cymbalta] 60 mg PO HS 02/07/19 02/09/19 History Diclofenac Sodium Gel [Voltaren 1 applic TOPICAL DAILY PRN 02/07/19 02/07/19 History Gel] Sodium Bicarbonate 325 mg PO BID 02/07/19 02/07/19 History amLODIPine [Norvasc] 5 mg PO BID 02/07/19 02/09/19 History cloNIDine HCL [Catapres] 0.1 mg PO BID 02/07/19 02/09/19 History hydrALAZINE HCL 50 mg PO BID-W/MEALS 02/07/19 02/09/19 History Azithromycin [Zithromax Z-pack] See Taper PO DIRECTED 02/09/19 02/09/19 History Metoprolol Tartrate 25 mg PO BID 02/09/19 02/09/19 History Polyethylene Glycol 3350 [Miralax] 17 gm PO DAILY 02/09/19 02/09/19 History Allergies Allergy/AdvReac Type Severity Reaction Status Date / Time No Known Allergies Allergy Verified 02/07/19 14:22 Physical Exam Vitals: Vital Signs Temp Pulse Resp BP Pulse Ox 02/11/19 04:10 97.8 F 85 17 149/74 96 02/11/19 00:15 85 17 02/11/19 00:00 98.1 F 89 18 168/73 95 02/10/19 20:10 98.4 F 87 19 141/70 92 L 02/10/19 15:00 97.9 F 98 14 161/85 Intake and Output 02/10/19 02/11/19 02/11/19 22:59 06:59 14:59 Intake Total 103.151 Output Total 1300 851 Balance -1300 -851 103.151 Intake: Intake, IV Titration 103.151 Amount Heparin Sod,Pork in 0.45% 103.151 NaCl 25,000 unit In 0.45 % NaCl 1 250ml.bag @ 12 UNITS/KG/HR 8.165 mls/hr IV .Q24H [facility] Rx#: [id number] Output: Gastric Drainage 1100 Urine 200 450 Stool 1 Oral Regurgitation 400 Other: Voiding Method Self-Catheterization Self-Catheterization # Voids 1 4 # Bowel Movements 2 Weight 66.2 kg PHYSICAL EXAMINATION: GENERAL:83-year-old female in no acute distress at the time of my examination HEENT: Head is atraumatic, normocephalic. Pupils equal, round. Sclera anicteric. Conjunctiva are clear. Mucous membranes of the mouth are moist. Neck is supple. There is no elevated jugular venous pressure.no carotid bruit is heard.NG tube in place HEART EXAMINATION: [Heart S1, S2 systolic murmur is heard.] CHEST EXAMINATION:[ Lungs are clear to auscultation and precussion. No chest wall tenderness is noted on palpation or with deep breathing.] ABDOMEN: distended, firm, diffuse mild tenderness, suprapubic tenderness EXTREMITIES:[ 2+ peripheral pulses with no evidence of peripheral edema and no calf tenderness noted]. NEUROLOGIC [patient is awake, alert and oriented 3 . Results 02/10/19 17:59 02/10/19 06:27 Coagulation 02/10/19 02/10/19 Range/Units 17:59 23:42 PT 9.8 (9.0-12.0) sec APTT 25.1 23.4 (22.0-30.0) sec CBC 02/10/19 Range/Units 17:59 WBC 6.5 (3.8-10.6) k/uL RBC 3.97 (3.80-5.40) m/uL Hgb 12.0 (11.4-16.0) gm/dL Hct 37.7 (34.0-46.0) % Plt Count 432 (150-450) k/uL Current Medications Generic Name Dose Route Start Last Admin Trade Name Freq PRN Reason Stop Dose Admin Acetaminophen 500 mg 02/07/19 20:48 Tylenol Tab PO Q6HR PRN Fever and/ or Pain Atorvastatin Calcium 2.5 mg 02/07/19 22:30 02/11/19 00:49 Lipitor PO Not Given HS [facility] Bisacodyl 10 mg 02/08/19 12:00 02/10/19 08:27 Dulcolax RECTAL 10 mg DAILY [facility] Administration Clonidine 0.1 mg 02/08/19 21:00 02/11/19 00:49 Catapres PO Not Given HS [facility] Duloxetine HCl 60 mg 02/07/19 23:00 02/11/19 00:49 Cymbalta PO Not Given HS [facility] Heparin Sodium (Porcine) 0 unit 02/10/19 17:39 Heparin IV PER PROTOCOL PRN Low PTT Protocol Hydralazine HCl 25 mg 02/07/19 22:30 02/11/19 00:50 Apresoline PO Not Given TID [facility] Dextrose/Sodium Chloride 1,000 mls @ 75 mls/hr 02/08/19 11:30 02/11/19 07:06 Dextrose 5%-Ns Iv Soln IV 75 mls/hr .[id number] [facility] Administration Ceftriaxone Sodium 1 gm/ 50 mls @ 100 mls/hr 02/10/19 21:00 02/11/19 00:52 Sodium Chloride IVPB 100 mls/hr Q12HR [facility] Administration Heparin Sodium/Sodium Chloride 250 mls @ 8.165 mls/hr 02/10/19 17:45 02/11/19 07:07 25,000 unit/ Sodium Chloride IV 15 units/kg/hr .Q24H [facility] 10.206 mls/hr Titration Protocol 12 UNITS/KG/HR Lactulose 15 gm 02/09/19 10:30 02/11/19 00:50 Cephulac PO Not Given BID [facility] Miscellaneous Information 1 each 02/08/19 09:13 Potassium Per Protocol MISCELLANE DAILY PRN Per Protocol Protocol Morphine Sulfate 2 mg 02/07/19 20:49 02/10/19 16:43 Morphine Sulfate (Inj) IVP 2 mg Q4H PRN Administration Pain/Discomfort Naloxone HCl 0.2 mg 02/07/19 20:20 Narcan IV Q2M PRN Opioid Reversal Sodium Bicarbonate 650 mg 02/08/19 21:00 02/11/19 00:50 Sodium Bicarbonate Tab PO Not Given BID [facility] Intake and Output 02/10/19 02/11/19 02/11/19 22:59 06:59 14:59 Intake Total 103.151 Output Total 1300 851 Balance -1300 -851 103.151 Intake: Intake, IV Titration 103.151 Amount Heparin Sod,Pork in 0.45% 103.151 NaCl 25,000 unit In 0.45 % NaCl 1 250ml.bag @ 12 UNITS/KG/HR 8.165 mls/hr IV .Q24H [facility] Rx#: [id number] Output: Gastric Drainage 1100 Urine 200 450 Stool 1 Oral Regurgitation 400 Other: Voiding Method Self-Catheterization Self-Catheterization # Voids 1 4 # Bowel Movements 2 Weight 66.2 kg 02/10/19 17:59 02/10/19 06:27 EKG Interpretations (text) EKG this morning shows a normal sinus rhythm with occasional PAC, EKG last evening showed atrial fibrillation with a rapid ventricular response Assessment and Plan Plan: assessment and plan #1 small bowel obstruction #2 atrial fibrillation with rapid ventricular response, paroxysmal, patient currently in normal sinus rhythm #3 urinary retention with current UTI #4 hypertension #5 hyperlipidemia Plan We will obtain an echocardiogram with Doppler study. Continue IV heparin. Patient also has been educated regarding the fact that she will need to be on oral anticoagulation postoperatively for prevention of stroke being that she has paroxysmal atrial fibrillation.we will start the patient on IV Lopressor as she is not currently taking any oral medications. We will initiate that preoperatively. Obtain a TSH level. Further recommendations to follow. DNP note has been reviewed, I agree with a documented findings and plan of care. Patient was seen and examined.
[2019-02-11 09:01] LABS: Eosinophils # (M) 0.43 k/uL (0-0.7); Lymphocytes # (M) 0.93 k/uL (1.0-4.8); Monocytes # (M) 1.36 k/uL (0-1.0); Neutrophils # (M) 3.47 k/uL (1.3-7.7); Neutrophils % (M) 56 %; Nucleated Red Blood Cells 0 /100 WBC (0-0); Total Cells Counted 100
[2019-02-11] MEDS: METOPROLOL TARTRATE 5 MG/5 ML VIAL IVP SCH ×4 (09:43→21:37)
[2019-02-11] MEDS: BISACODYL 10 MG SUPP RECTAL SCH (09:43)
[2019-02-11 10:00] LABS: Albumin 3.4 g/dL (3.5-5.0); Calcium 9.7 mg/dL (8.4-10.2); Potassium 3.8 mmol/L (3.5-5.1); Total Bilirubin 0.6 mg/dL (0.2-1.3); Total Protein 6.1 g/dL (6.3-8.2)
[2019-02-11 10:05] LABS: Basophils # (A) 0.1 k/uL (0-0.2); Basophils % (A) 1 %; Eosinophils # (A) 0.2 k/uL (0-0.7); Eosinophils % (A) 4 %; HCT 36.2 % (34.0-46.0); HGB 11.6 gm/dL (11.4-16.0); Hypochromasia Slight; Lymphocytes # (A) 0.8 k/uL (1.0-4.8); Lymphocytes % (A) 14 %; MCH 30.4 pg (25.0-35.0); MCV 94.8 fL (80.0-100.0); Mean Platelet Volume 7.3; Monocytes # (A) 0.6 k/uL (0-1.0); Monocytes % (A) 11 %; Neutrophils # (A) 3.5 k/uL (1.3-7.7); Neutrophils % (A) 66 %; Platelet Count 414 k/uL (150-450); RBC 3.82 m/uL (3.80-5.40); RDW 13.8 % (11.5-15.5); WBC 5.3 k/uL (3.8-10.6)
--- NOTE | 2019-02-11 11:03 | P.PN ---
Subjective Patient is seen in follow-up for acute kidney injury on chronic kidney disease. Renal function is a little better today. Patient had a loose bowel movement last night. Currently has an NG tube - 1400 mL out overnight. Vital signs are stable. General: The patient appeared well nourished and normally developed. HEENT: Head exam is unremarkable. Neck is without jugular venous distension. LUNGS: Lungs are clear to auscultation and percussion. Breath sounds decreased. HEART: Rate and Rhythm are regular. First and second heart sounds normal. No murmurs, rubs or gallops. ABDOMEN: Bowel sounds present. Generalized tenderness. EXTREMITITES: No clubbing, cyanosis, or edema. Objective - Vital Signs Vital signs: Vital Signs Temp 97.8 F 02/11/19 04:10 Pulse 85 02/11/19 04:10 Resp 17 02/11/19 04:10 BP 149/74 02/11/19 04:10 Pulse Ox 96 02/11/19 04:10 Intake & Output 02/10/19 02/11/19 02/11/19 18:59 06:59 18:59 Intake Total 600 103.151 Output Total 2151 Balance 600 -2151 103.151 Weight 66.2 kg Intake: Intake, IV Titration 600 103.151 Amount Dextrose 5%-0.9% NaCl 1, 600 000 ml @ 75 mls/hr IV . [id number] [facility] Rx#:[id number] Heparin Sod,Pork in 0.45% 103.151 NaCl 25,000 unit In 0.45 % NaCl 1 250ml.bag @ 12 UNITS/KG/HR 8.165 mls/hr IV .Q24H [facility] Rx#: [id number] Oral 0 Output: Gastric Drainage 1100 Urine 650 Stool 1 Oral Regurgitation 400 Other: Voiding Method Self-Catheterization Self-Catheterization # Voids 2 4 # Bowel Movements 2 - Labs CBC & Chem 7: 02/11/19 09:17 02/11/19 09:17 Labs: Abnormal Lab Results - Last 24 Hours (Table) 02/10/19 02/11/19 02/11/19 Range/Units 17:59 06:44 06:44 Lymphocytes # (1.0-4.8) k/uL Lymphocytes # (Manual) 0.65 L 0.93 L (1.0-4.8) k/uL Monocytes # (Manual) 1.11 H 1.36 H (0-1.0) k/uL APTT (22.0-30.0) sec Chloride (98-107) mmol/L BUN 20 H (7-17) mg/dL Creatinine 2.07 H (0.52-1.04) mg/dL Glucose 110 H (74-99) mg/dL Magnesium 2.4 H (1.6-2.3) mg/dL Alkaline Phosphatase (38-126) U/L Total Protein (6.3-8.2) g/dL Albumin (3.5-5.0) g/dL 02/11/19 02/11/19 02/11/19 Range/Units 09:17 09:17 09:17 Lymphocytes # 0.8 L (1.0-4.8) k/uL Lymphocytes # (Manual) (1.0-4.8) k/uL Monocytes # (Manual) (0-1.0) k/uL APTT 32.6 H (22.0-30.0) sec Chloride 108 H (98-107) mmol/L BUN 20 H (7-17) mg/dL Creatinine 1.94 H (0.52-1.04) mg/dL Glucose 131 H (74-99) mg/dL Magnesium (1.6-2.3) mg/dL Alkaline Phosphatase 137 H (38-126) U/L Total Protein 6.1 L (6.3-8.2) g/dL Albumin 3.4 L (3.5-5.0) g/dL Microbiology - Last 24 Hours (Table) 02/07/19 20:55 Blood Culture - Preliminary Blood No Growth after 72 hours 02/07/19 22:15 Urine Culture - Final Urine,Catheterized Klebsiella pneumoniae Escherichia coli Assessment and Plan Plan: Assessment: 1. Acute kidney injury mostly prerenal improved with IV hydration. Renal function a little improved. Creatinine 1.94 today. 2. Chronic kidney disease stage IV with baseline creatinine near 2 secondary to nephrosclerosis and left renal atrophy. 3. Abdominal pain. Possibly diverticulitis with colonic obstruction. Surgery following. Currently has an NG tube. Potential surgical intervention today. 4. Neurogenic bladder. Patient performs self catheterizations 4-5 times daily. 5. Metabolic acidosis maintained on oral sodium bicarbonate. 6. Hypertension with chronic kidney disease. Controlled. 7. UTI with urine culture positive for Klebsiella and E. coli maintained on antibiotics. Plan: Maintain normal saline at 75 mL an hour. Avoid nephrotoxins. Continue to monitor renal function and urine output. Decrease sodium bicarbonate to once daily.
--- NOTE | 2019-02-11 12:00 | ECHOF ---
Referral Reason:atrial fib .htnurgency,tia MEASUREMENTS -------- HEIGHT: 162.6 cm WEIGHT: 65.8 kg BP: 149/74 RVIDd: 3.3 cm (< 3.3) IVSd: 1.2 cm (0.6 - 1.1) LVIDd: 3.1 cm (3.9 - 5.3) LVPWd: 1.2 cm (0.6 - 1.1) IVSs: 1.4 cm LVIDs: 2.2 cm LVPWs: 1.7 cm LAESV Index (A-L): 26.54 ml/m Ao Diam: 3.1 cm (2.0 - 3.7) AV Cusp: 1.7 cm (1.5 - 2.6) LA Diam: 4.2 cm (2.7 - 3.8) MV EXCURSION: 11.453 mm (> 18.000) MV EF SLOPE: 34 mm/s (70 - 150) EPSS: 0.4 cm MV E Wilberto: 1.00 m/s MV DecT: 222 ms MV A Wilberto: 0.88 m/s MV E/A Ratio: 1.13 AR PHT: 367 ms RAP: 5.00 mmHg RVSP: 40.09 mmHg TAPSE: 17.35 mm FINDINGS -------- Sinus rhythm with extra systolic beats. This was a technically adequate study. The left ventricular size is normal. There is mild concentric left ventricular hypertrophy. Overa ll left ventricular systolic function is normal with, an EF between 55 - 60 %. Increased LAP Grade 2 Diastolic Dysfunction. The right ventricle is mildly enlarged. The right ventricular systolic function is normal. The left atrial size is normal. Normal LA size by volume 22+/-6 ml/m2. The right atrial size is normal. Interatrial and interventricular septum intact. Aortic valve is trileaflet and is mildly thickened. There is efux-zq-ezewqulp aortic regurgitation. The mitral valve is normal. The mitral valve leaflets are mildly thickened. Mild mitral annular c alcification present. Moderate mitral regurgitation is present. The tricuspid valve appears structurally normal. No regurgitation noted There is mild pulmonary h ypertension. The right ventricular systolic pressure, as measured by Doppler, is 40.09mmHg. There is no pulmonic regurgitation present. The aortic root size is normal. Normal inferior vena cava with normal inspiratory collapse consistent with estimated right atrial pre ssure of 5 mmHg. There is a small, generalized pericardial effusion present. CONCLUSIONS -------- 1. Sinus rhythm with extra systolic beats. 2. This was a technically adequate study. 3. The left ventricular size is normal. 4. There is mild concentric left ventricular hypertrophy. 5. Overall left ventricular systolic function is normal with, an EF between 55 - 60 %. 6. Increased LAP Grade 2 Diastolic Dysfunction. 7. The right ventricle is mildly enlarged. 8. The right ventricular systolic function is normal. 9. The left atrial size is normal. 10. Normal LA size by volume 22+/-6 ml/m2. 11. The right atrial size is normal. 12. Interatrial and interventricular septum intact. 13. Aortic valve is trileaflet and is mildly thickened. 14. There is hkbc-wy-qlgywpdw aortic regurgitation. 15. The mitral valve is normal. 16. The mitral valve leaflets are mildly thickened. 17. Mild mitral annular calcification present. 18. Moderate mitral regurgitation is present. 19. The tricuspid valve appears structurally normal. 20. No regurgitation noted 21. There is mild pulmonary hypertension. 22. The right ventricular systolic pressure, as measured by Doppler, is 40.09mmHg. 23. There is no pulmonic regurgitation present. 24. The aortic root size is normal. 25. Normal inferior vena cava with normal inspiratory collapse consistent with estimated right atrial pressure of 5 mmHg. 26. There is a small, generalized pericardial effusion present. [place]E MACHINE OPERATOR: Hortencia Piedra RDCS
[2019-02-11] MEDS: hydrALAZINE HCL 20 MG/ML 1 ML VIAL IVP PRN ×2 (13:05→18:24)
--- NOTE | 2019-02-11 16:01 | FL ---
EXAMINATION TYPE: FL barium enema DATE OF EXAM: 02/11/2019 COMPARISON: None CT 02/07/2019 HISTORY: Bowel incontinence, difficulty with fecal excretion, recent small bowel obstruction TECHNIQUE: Retrograde filling of the colon with Isovue was performed. FINDINGS: Sigmoid colon has mild redundancy. There are scattered diverticuli within the distal sigmoi d colon. There is a large filling defect within the mid sigmoid colon region. There is diffuse narrowing of th e sigmoid colon. Multiple diverticuli from the distal descending colon and the sigmoid colon are evid ent. Remaining portions of the colon appeared without areas of suspicious filling defects. Fecal debris is present. No circumferential area of narrowing is evident. There are some additional scattered divert iculi within the ascending colon region. On post evacuation films there is filling of small bowel loops with contrast. IMPRESSION: 1. Persistent filling defect within the mid to proximal sigmoid colon. 2. Diverticulosis without acute diverticulitis
--- NOTE | 2019-02-11 16:07 | P.PN ---
Subjective Progress Note Date: 02/11/19 Principal diagnosis: mechanical obstruction with small bowel and distended abdomen with history of adhesions in the past. The progress note dictated on 02/08/2090 by Patient with history notable bowel movement or stool or passing flatus for more than one week duration x-ray indicating small bowel mechanical obstruction. And patient currently nothing by mouth with NG tube which she did some relief. 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 And seen by Dr. ISATU Zamudio. Respiratory rate 16 and her blood pressure is hypertensive in spite of trial of medication 187/84. She is on nasal cannula 2 L of oxygen with a pulse ox 95%. current laboratories indicating that her WBC 5.3 with a hemoglobin 11.6, her platelet count 414.next is her PTT 32.6with the normal range 30.6. Minimally elevated. Chemistry indicating sodium 144 potassium 3.8 chloride 108 carbon dioxid 28, anion gap 8, BUN 20, creatinine 1.94, EGFR 23 with chronic kidney disease stage IV. Glucose 131AST and LT normal alk phos 137 total protein 6.1 and albumin 3.4 thyroid function is normal and the free T3 some little bit lower than normal that is because of her illness Nephrology evaluation and assessment indicating patient with the UTI Klebsiella pneumonia and E. coli treated according to the culture with the assessment acute kidney injury possibly prerenal improved with hydration. Chronic kidney disease stage IV with the creatinine near 2 secondary to hydronephrosis and left renal atrophy. #3 abdominal pain with questionable diverticulitis and chronic obstruction and NG tube for decompression. Neurogenic bladder and uses a catheterization 4-5 a day metabolic acidosis and she is on bicarb hypertension is controlled and UTI. Physical exam patient status post barium enema and patient the result reviewed by Dr. Sahu and his impression will be discussed with the family. HEENT was negative neck was supple and chest was clear and the heart was currently controlled atrophic And abdomen is tender distended and with the small bowel obstruction extremities no edema. Assessment small bowel obstruction mechanical and high fall to the patient should have surgical intervention. However this is a surgical case and up to the family and the surgeon. Objective - Vital Signs Vital signs: Vital Signs Temp 98 F 02/11/19 08:00 Pulse 80 02/11/19 12:59 Resp 16 02/11/19 12:59 BP 187/84 02/11/19 12:59 Pulse Ox 95 02/11/19 12:00 Intake & Output 02/10/19 02/11/19 02/11/19 18:59 06:59 18:59 Intake Total 600 148.228 Output Total 2151 401 Balance 600 -2151 -252.772 Weight 66.2 kg Intake: Intake, IV Titration 600 148.228 Amount Dextrose 5%-0.9% NaCl 1, 600 000 ml @ 75 mls/hr IV . [id number] [facility] Rx#:[id number] Heparin Sod,Pork in 0.45% 148.228 NaCl 25,000 unit In 0.45 % NaCl 1 250ml.bag @ 12 UNITS/KG/HR 8.165 mls/hr IV .Q24H [facility] Rx#: [id number] Oral 0 Output: Gastric Drainage 1100 Urine 650 400 Stool 1 1 Oral Regurgitation 400 Other: Voiding Method Self-Catheterization Self-Catheterization Self-Catheterization # Voids 2 4 # Bowel Movements 2 - Labs CBC & Chem 7: 02/11/19 09:17 02/11/19 09:17 Labs: Abnormal Lab Results - Last 24 Hours (Table) 02/10/19 02/11/19 02/11/19 Range/Units 17:59 06:44 06:44 Lymphocytes # (1.0-4.8) k/uL Lymphocytes # (Manual) 0.65 L 0.93 L (1.0-4.8) k/uL Monocytes # (Manual) 1.11 H 1.36 H (0-1.0) k/uL APTT (22.0-30.0) sec Chloride (98-107) mmol/L BUN 20 H (7-17) mg/dL Creatinine 2.07 H (0.52-1.04) mg/dL Glucose 110 H (74-99) mg/dL Magnesium 2.4 H (1.6-2.3) mg/dL Alkaline Phosphatase (38-126) U/L Total Protein (6.3-8.2) g/dL Albumin (3.5-5.0) g/dL Free T3 pg/mL 1.7 L (2.8-5.3) pg/ml 02/11/19 02/11/19 02/11/19 Range/Units 09:17 09:17 09:17 Lymphocytes # 0.8 L (1.0-4.8) k/uL Lymphocytes # (Manual) (1.0-4.8) k/uL Monocytes # (Manual) (0-1.0) k/uL APTT 32.6 H (22.0-30.0) sec Chloride 108 H (98-107) mmol/L BUN 20 H (7-17) mg/dL Creatinine 1.94 H (0.52-1.04) mg/dL Glucose 131 H (74-99) mg/dL Magnesium (1.6-2.3) mg/dL Alkaline Phosphatase 137 H (38-126) U/L Total Protein 6.1 L (6.3-8.2) g/dL Albumin 3.4 L (3.5-5.0) g/dL Free T3 pg/mL (2.8-5.3) pg/ml Microbiology - Last 24 Hours (Table) 02/07/19 20:55 Blood Culture - Preliminary Blood No Growth after 72 hours 02/07/19 22:15 Urine Culture - Final Urine,Catheterized Klebsiella pneumoniae Escherichia coli
[2019-02-11] MEDS: MORPHINE SULFATE 2 MG/ML SYRINGE IVP PRN ×2 (16:47→20:48)
[2019-02-11] MEDS: cloNIDine 0.3 MG/24HR PATCH TRANSDERM SCH (16:50)
[2019-02-11] MEDS: HYDROmorphone 0.5 MG/0.5 ML SYRINGE IVP PRN (18:25)
--- NOTE | 2019-02-11 18:57 | P.PN ---
Subjective Progress Note Date: 02/11/19 Principal diagnosis: Colonic obstruction Patient underwent unprepped barium enema today. Having some crampy discomfort since that test was performed. Prior to that the patient had been doing much better. She had approximately 1.8 L out from the nasogastric tube since placement last night. White blood cell count normal. She did have bandemia that is not present today. She is afebrile. Mild hypertension, no tachycardia. She is having some liquid stools after the enema was performed. Partial colonic obstruction identified. Impacted stool versus mass proximal sigmoid noted. Objective - Vital Signs Vital signs: Vital Signs Temp 98 F 02/11/19 08:00 Pulse 94 02/11/19 16:00 Resp 16 02/11/19 16:00 BP 198/92 02/11/19 16:00 Pulse Ox 96 02/11/19 16:00 Intake & Output 02/10/19 02/11/19 02/11/19 18:59 06:59 18:59 Intake Total 600 881.508 Output Total 2151 1502 Balance 600 -2151 -620.492 Weight 66.2 kg Intake: Intake, IV Titration 600 881.508 Amount Dextrose 5%-0.9% NaCl 1, 600 600 000 ml @ 75 mls/hr IV . [id number] [facility] Rx#:[id number] Heparin Sod,Pork in 0.45% 231.508 NaCl 25,000 unit In 0.45 % NaCl 1 250ml.bag @ 12 UNITS/KG/HR 8.165 mls/hr IV .Q24H [facility] Rx#: [id number] cefTRIAXone 1 gm In 50 Sodium Chloride 0.9% 50 ml @ 100 mls/hr IVPB Q12HR [facility] Rx#:[id number] Oral 0 Output: Gastric Drainage 1100 Drainage 500 Right 500 Urine 650 1000 Stool 1 2 Oral Regurgitation 400 Other: Voiding Method Self-Catheterization Self-Catheterization Self-Catheterization # Voids 2 4 # Bowel Movements 2 - Exam Abdomen: Soft, distended, mild diffuse tenderness, no rebound or guarding - Labs CBC & Chem 7: 02/11/19 09:17 02/11/19 09:17 Labs: Abnormal Lab Results - Last 24 Hours (Table) 02/10/19 02/11/19 02/11/19 Range/Units 17:59 06:44 06:44 Lymphocytes # (1.0-4.8) k/uL Lymphocytes # (Manual) 0.65 L 0.93 L (1.0-4.8) k/uL Monocytes # (Manual) 1.11 H 1.36 H (0-1.0) k/uL APTT (22.0-30.0) sec Chloride (98-107) mmol/L BUN 20 H (7-17) mg/dL Creatinine 2.07 H (0.52-1.04) mg/dL Glucose 110 H (74-99) mg/dL Magnesium 2.4 H (1.6-2.3) mg/dL Alkaline Phosphatase (38-126) U/L Total Protein (6.3-8.2) g/dL Albumin (3.5-5.0) g/dL Free T3 pg/mL 1.7 L (2.8-5.3) pg/ml 02/11/19 02/11/19 02/11/19 Range/Units 09:17 09:17 09:17 Lymphocytes # 0.8 L (1.0-4.8) k/uL Lymphocytes # (Manual) (1.0-4.8) k/uL Monocytes # (Manual) (0-1.0) k/uL APTT 32.6 H (22.0-30.0) sec Chloride 108 H (98-107) mmol/L BUN 20 H (7-17) mg/dL Creatinine 1.94 H (0.52-1.04) mg/dL Glucose 131 H (74-99) mg/dL Magnesium (1.6-2.3) mg/dL Alkaline Phosphatase 137 H (38-126) U/L Total Protein 6.1 L (6.3-8.2) g/dL Albumin 3.4 L (3.5-5.0) g/dL Free T3 pg/mL (2.8-5.3) pg/ml 02/11/19 Range/Units 17:36 Lymphocytes # (1.0-4.8) k/uL Lymphocytes # (Manual) (1.0-4.8) k/uL Monocytes # (Manual) (0-1.0) k/uL APTT 33.1 H (22.0-30.0) sec Chloride (98-107) mmol/L BUN (7-17) mg/dL Creatinine (0.52-1.04) mg/dL Glucose (74-99) mg/dL Magnesium (1.6-2.3) mg/dL Alkaline Phosphatase (38-126) U/L Total Protein (6.3-8.2) g/dL Albumin (3.5-5.0) g/dL Free T3 pg/mL (2.8-5.3) pg/ml Microbiology - Last 24 Hours (Table) 02/07/19 20:55 Blood Culture - Preliminary Blood No Growth after 72 hours Assessment and Plan (1) Abdominal pain Narrative/Plan: Radiology findings discussed with the patient and her family. Recommend exploratory laparotomy with sigmoid colectomy and end colostomy. They are agreeable. Risks of bleeding, infection, scarring, hernia, respiratory and cardiac complications reviewed. They understand and wish to proceed. Current Visit: Yes Status: Acute Code(s): R10.9 - UNSPECIFIED ABDOMINAL PAIN SNOMED Code(s): 65774409
[2019-02-11] MEDS: HEPARIN SOD,PORK IN 0.45% NACL 25,000 UNIT in 0.45% NACL 1 250ML.BAG IV SCH (20:50)
[2019-02-11] MEDS ORDERED: cloNIDine HCL 0.2 MG TAB PO SCH (21:00)
[2019-02-11] MEDS: ACETAMINOPHEN IV (For NPO) 1,000 MG in EMPTY BAG 1 BAG IVPB SCH (21:54)
[2019-02-11] MEDS ORDERED: DILTIAZEM DRIP BOLUS FROM BAG 1 MG SOLN IV ONE (22:04)
[2019-02-11] MEDS ORDERED: DILTIAZEM 125 MG in SODIUM CHLORIDE 0.9% 100 ML IV SCH (22:15)
[2019-02-12] MEDS: MORPHINE SULFATE 2 MG/ML SYRINGE IVP PRN ×2 (02:10→22:39)
[2019-02-12] MEDS: ACETAMINOPHEN IV (For NPO) 1,000 MG in EMPTY BAG 1 BAG IVPB SCH ×3 (02:59→17:19)
[2019-02-12] MEDS: METOPROLOL TARTRATE 5 MG/5 ML VIAL IVP SCH ×3 (06:44→17:23)
[2019-02-12] MEDS: HYDROmorphone 0.5 MG/0.5 ML SYRINGE IVP PRN (06:45)
[2019-02-12] MEDS: DEXTROSE 5%-0.9% NACL 1,000 ML IV SCH (06:45)
[2019-02-12 07:03] LABS: Basophils # (A) 0.1 k/uL (0-0.2); Basophils % (A) 1 %; Eosinophils # (A) 0.1 k/uL (0-0.7); Eosinophils % (A) 1 %; HCT 40.2 % (34.0-46.0); HGB 12.6 gm/dL (11.4-16.0); Hypochromasia Slight; Lymphocytes # (A) 1.3 k/uL (1.0-4.8); Lymphocytes % (A) 12 %; MCH 30.1 pg (25.0-35.0); MCHC 31.4 g/dL (31.0-37.0); MCV 95.6 fL (80.0-100.0); Mean Platelet Volume 7.6; Monocytes # (A) 0.5 k/uL (0-1.0); Monocytes % (A) 5 %; Neutrophils # (A) 8.5 k/uL (1.3-7.7); Neutrophils % (A) 80 %; Platelet Count 464 k/uL (150-450); WBC 10.6 k/uL (3.8-10.6)
[2019-02-12 07:10] LABS: Calcium 10.1 mg/dL (8.4-10.2); Magnesium 2.4 mg/dL (1.6-2.3); Potassium 3.8 mmol/L (3.5-5.1)
[2019-02-12] MEDS ORDERED: SODIUM BICARBONATE TAB 650 MG TAB PO SCH (09:00)
[2019-02-12] MEDS: BISACODYL 10 MG SUPP RECTAL SCH (09:13)
[2019-02-12] MEDS: LACTULOSE 20 GM/30 ML CUP PO SCH (09:14)
--- NOTE | 2019-02-12 10:51 | P.PN ---
Subjective Patient is seen in follow-up for acute kidney injury on chronic kidney disease. Renal function is a little better. currently has an NG tube. Scheduled for exploratory laparoscopy this afternoon. Vital signs are stable. General: The patient appeared well nourished and normally developed. HEENT: Head exam is unremarkable. Neck is without jugular venous distension. LUNGS: Lungs are clear to auscultation and percussion. Breath sounds decreased. HEART: Rate and Rhythm are regular. First and second heart sounds normal. No murmurs, rubs or gallops. ABDOMEN: Bowel sounds present. Generalized tenderness. EXTREMITITES: No clubbing, cyanosis, or edema. Objective - Vital Signs Vital signs: Vital Signs Temp 98.4 F 02/12/19 04:00 Pulse 95 02/12/19 08:00 Resp 16 02/12/19 08:00 BP 168/89 02/12/19 08:00 Pulse Ox 95 02/12/19 08:00 Intake & Output 02/11/19 02/12/19 02/12/19 18:59 06:59 18:59 Intake Total 881.508 543.232 Output Total 1502 1 450 Balance -620.492 542.232 -450 Weight 66 kg Intake: Intake, IV Titration 881.508 543.232 Amount Dextrose 5%-0.9% NaCl 1, 600 450 000 ml @ 75 mls/hr IV . [id number] [facility] Rx#:[id number] Diltiazem 125 mg In 12.833 Sodium Chloride 0.9% 100 ml @ 10 MG/HR 10 mls/hr IV .[id number] [facility] Rx#: [id number] Heparin Sod,Pork in 0.45% 231.508 30.399 NaCl 25,000 unit In 0.45 % NaCl 1 250ml.bag @ 12 UNITS/KG/HR 8.165 mls/hr IV .Q24H [facility] Rx#: [id number] cefTRIAXone 1 gm In 50 50 Sodium Chloride 0.9% 50 ml @ 100 mls/hr IVPB Q12HR [facility] Rx#:[id number] Oral 0 Output: Gastric Drainage 150 Drainage 500 Right 500 Urine 1000 300 Stool 2 1 Other: Voiding Method Self-Catheterization Indwelling Catheter # Voids 1 - Labs CBC & Chem 7: 02/12/19 06:34 02/12/19 06:34 Labs: Abnormal Lab Results - Last 24 Hours (Table) 02/11/19 02/11/19 02/12/19 Range/Units 06:44 17:36 00:29 Plt Count (150-450) k/uL Neutrophils # (1.3-7.7) k/uL APTT 33.1 H 70.3 H (22.0-30.0) sec Sodium (137-145) mmol/L Chloride (98-107) mmol/L BUN (7-17) mg/dL Creatinine (0.52-1.04) mg/dL Glucose (74-99) mg/dL Magnesium (1.6-2.3) mg/dL Free T3 pg/mL 1.7 L (2.8-5.3) pg/ml 02/12/19 02/12/19 Range/Units 06:34 06:34 Plt Count 464 H (150-450) k/uL Neutrophils # 8.5 H (1.3-7.7) k/uL APTT (22.0-30.0) sec Sodium 147 H (137-145) mmol/L Chloride 111 H (98-107) mmol/L BUN 20 H (7-17) mg/dL Creatinine 1.84 H (0.52-1.04) mg/dL Glucose 118 H (74-99) mg/dL Magnesium 2.4 H (1.6-2.3) mg/dL Free T3 pg/mL (2.8-5.3) pg/ml Microbiology - Last 24 Hours (Table) 02/07/19 20:55 Blood Culture - Preliminary Blood No Growth after 96 hours Assessment and Plan Plan: Assessment: 1. Acute kidney injury mostly prerenal improved with IV hydration. Renal f unction a little improved. Creatinine 1.84 today. 2. Chronic kidney disease stage IV with baseline creatinine near 2 secondary to nephrosclerosis and left renal atrophy. 3. Abdominal pain. Possibly diverticulitis with colonic obstruction. Surgery following. Currently has an NG tube. Scheduled for surgery this afternoon. 4. Neurogenic bladder. Patient performs self catheterizations 4-5 times daily. 5. Metabolic acidosis maintained on oral sodium bicarbonate. 6. Hypertension with chronic kidney disease. 7. UTI with urine culture positive for Klebsiella and E. coli maintained on a ntibiotics. 8. Hypernatremia secondary to lack of oral water intake. Plan: I will change IV fluids to [id number] saline to be run at 100 mL an hour. Avoid nephrotoxins. Continue to monitor renal function and urine output. Discontinue sodium bicarbonate; patient is becoming alkalotic due to hydrogen ion losses from NG output.
[2019-02-12] MEDS ORDERED: LACTATED RINGERS 1,000 ML IV ONE ×3 (11:09→15:42)
[2019-02-12] MEDS ORDERED: ONDANSETRON 4 MG/2 ML VIAL IVP ONE (11:09)
[2019-02-12] MEDS ORDERED: SUCCINYLCHOLINE CHLORIDE 100 MG/5 ML SYR IV ONE (12:25)
[2019-02-12] MEDS ORDERED: PROPOFOL 10 MG/ML 20 ML VIAL IV ONE (12:25)
[2019-02-12] MEDS ORDERED: PHENYLEPHRINE-0.9% NACL SYG 1 MG/10 ML SYRINGE ONE (12:25)
[2019-02-12] MEDS ORDERED: NEOSTIGMINE 1 MG/ML 10 ML VIAL ONE (12:25)
[2019-02-12] MEDS ORDERED: ROCURONIUM BROMIDE 10 MG/ML 10 ML VIAL IV ONE (12:25)
[2019-02-12] MEDS ORDERED: fentaNYL (PF) 50 MCG/ML 2 ML AMP ONE (12:25)
[2019-02-12] MEDS ORDERED: LIDOCAINE 1% INJ 10MG/ML (20 ML MDV) ONE (12:25)
[2019-02-12] MEDS ORDERED: GLYCOPYRROLATE 0.2 MG/ML 2 ML VIAL ONE (12:25)
[2019-02-12] MEDS ORDERED: ceFAZolin 1,000 MG VIAL IVPB ONE (12:40)
[2019-02-12] MEDS ORDERED: metroNIDAZOLE-NS PMX 500 MG in SALINE 1 100ML.BAG IVPB STA (12:46)
[2019-02-12] MEDS ORDERED: HYDROmorphone 0.5 MG/0.5 ML SYRINGE IVP ONE ×3 (14:51→15:50)
--- NOTE | 2019-02-12 14:52 | P.OP ---
Date of Procedure: 02/12/19 Procedure(s) Performed: PREOPERATIVE DIAGNOSIS: Colon obstruction POSTOPERATIVE DIAGNOSIS: Same, intra-abdominal adhesions PROCEDURE: Exposure laparotomy, extensive lysis of adhesions, sigmoid colectomy, end colostomy SURGEON: Paul EBL: 50 mL ANESTHESIA: General COMPLICATIONS: None OPERATIVE PROCEDURE: Patient place in the operative table in the supine position. The patient was placed under general anesthesia. The abdomen was prepped and draped in usual sterile fashion. A vertical incision was made extending from the supraumbilical location to the suprapubic location. The fascia was divided as well. The Bookwalter retractor was utilized. The patient had extensive adhesions present. These were lysed using sharp dissection blunt dissection and electrocautery. No serosal tears were seen when later examined. The patient's small bowel was significantly distended. The gastric tube did not appear to function properly and was removed and replaced with a new nasogastric tube. The bowel contents were milked back to the stomach and during the procedure over 1.5 L of succus was evacuated from the stomach and small bowel. The colon was then inspected. The proximal colon was distended as suspected. The proximal sigmoid colon was able to be mobilized out of the pelvis. The sigmoid colon itself was somewhat stenotic appearing consistent with previous radiation issues. There appeared to be a ulceration in the antimesenteric border of the proximal sigmoid colon where there was a portion of stool present. This appeared consistent with a stercoral ulcer. Through that defect the piece of stool was evacuated. I was able to decompress the colon quite nicely through that area. The defect was then closed using a running locking 3-0 Vicryl stitch. The bowel was divided proximal and distal to this segment using a linear 75 stapler. The mesentery was divided using the LigaSure device. The distal descending colon was mobilized. This was able to be easily brought to the skin surface as an end ostomy. A circular portion and the skin of the left midabdomen was made. The saphenous tissues and fascia were divided using electrocautery. The rectus was and the bowel was brought out through that area. The abdomen was copiously irrigated with saline. No bleeding was seen. It should be noted during the procedure the bladder was quite full. As we were troubleshooting why the catheter was not working fully we identified the Murphy catheter had been present in the right ureter. The patient had hydroureter on the right from previous ureteral surgery. The balloon must of been present in the proximal ureter. This catheter was completely removed and a new catheter was placed in the bladder with the balloon able to be filled without difficulty. Location was confirmed. The midline fascia was then reapproximated using 2 separate #1 PDS sutures. The subcutaneous tissues were closed using 3-0 Vicryl sutures. The skin was then closed using maggy. 2 areas were left open for telephone jorge. Sterile dressings were applied. The colostomy was then matured using interrupted 3-0 Vicryl sutures in a [place] fashion. A colostomy appliance was placed. DISPOSITION: Stable to recovery room
[2019-02-12] MEDS ORDERED: METOPROLOL TARTRATE 5 MG/5 ML VIAL IVP ONE (15:05)
[2019-02-12] MEDS ORDERED: hydrALAZINE HCL 20 MG/ML 1 ML VIAL IVP ONE (15:27)
[2019-02-12] MEDS: DEXTROSE 5%-0.45% NACL 1,000 ML IV SCH (17:23)
--- NOTE | 2019-02-12 17:53 | P.PN ---
Subjective Progress Note Date: 02/12/19 (descending colon stool obstruction.) Principal diagnosis: mechanical obstruction with small bowel and distended abdomen with history of adhesions in the past. The progress note dictated on 02/08/2090 by Patient with history notable bowel movement or stool or passing flatus for more than one week duration x-ray indicating small bowel mechanical obstruction. And patient currently nothing by mouth with NG tube which she did some relief. Her vital sign temperature 90.8 orally F Fahrenheit and her pulse rate 80 and she developed on the surgical floor atrial fibrillation with a rate of 1:30 P 8/m patient transferred to central supply nurse floor with cardiology consultation which she was started on cardiac exam drip. And seen by Dr. ISATU Zamudio. Respiratory rate 16 and her blood pressure is hypertensive in spite of trial of medication 187/84. She is on nasal cannula 2 L of oxygen with a pulse ox 95%. current laboratories indicating that her WBC 5.3 with a hemoglobin 11.6, her platelet count 414.next is her PTT 32.6with the normal range 30.6. Minimally elevated. Chemistry indicating sodium 144 potassium 3.8 chloride 108 carbon dioxid 28, anion gap 8, BUN 20, creatinine 1.94, EGFR 23 with chronic kidney disease stage IV. Glucose 131AST and LT normal alk phos 137 total protein 6.1 and albumin 3.4 thyroid function is normal and the free T3 some little bit lower than normal that is because of her illness Nephrology evaluation and assessment indicating patient with the UTI Klebsiella pneumonia and E. coli treated according to the culture with the assessment acute kidney injury possibly prerenal improved with hydration. Chronic kidney disease stage IV with the creatinine near 2 secondary to hydronephrosis and left renal atrophy. #3 abdominal pain with questionable diverticulitis and chronic obstruction and NG tube for decompression. Neurogenic bladder and uses a catheterization 4-5 a day metabolic acidosis and she is on bicarb hypertension is controlled and UTI. Physical exam patient status post barium enema and patient the result reviewed by Dr. Sahu and his impression will be discussed with the family. HEENT was negative neck was supple and chest was clear and the heart was currently controlled atrophic And abdomen is tender distended and with the small bowel obstruction extremities no edema. Assessment small bowel obstruction mechanical and high fall to the patient should have surgical intervention. However this is a surgical case and up to the family and the surgeon. this is a dictation on the progress note date of service 02/12/2019. Dictation by Dr. Engel. Patient seen post operative, with the exploratory laparotomy, found that she had stool mass pressuring the descending colon close to the sigmoid. And a history of mechanical duodenal obstruction associated with the mentioned above. Patient underwent colostomy and the surgery by Dr. Sahu today on 02/12/2019. Patient initially was thought to be admitted to ICU however patient extubated and on BiPAP and she doing fairly well. Laboratory done at 6:30 a.m. indicating white count 10.6 hemoglobin 12.6 hematocrit 40.2 platelet count 464., chemistry was sodium 147, potassium 3.8, and chloride 111 carbon dioxide 28 anion gap of 8 BUN of 20 and creatinine 1.84. EGFR 25 glucose 118 and calcium 10.1 and magnesium 2.4. Her vital sign at 1545PM indicating heart rate of 80 and regular and Atrovent fibrillation resolved her respiratory rate was 16 and she was extubated her blood pressure 156/70 and pulse ox was 98 on BiPAP and FiO2 was 80%. Patient underwent general anesthesia and she had a vertical incision extended from supraumbilical location to the suprapubic location with the underlying exploratory laparotomy with the procedure was exposure laparotomy and extensive lysis of the adhesion and sigmoid colectomy and colostomy estimated blood loss 50 mL family. She is on left colostomy bag. And they've placed [place] acid or history of hydroureter on the right from previous ureteral surgery.. On exam: Patient sleepy dysphagic and down she able to open her eyes and shake my hand. She is on BiPAP. Neck was supple chest was clear with auscultation. Heart regular with no evidence of atrial fibrillation at this time. The abdomen with left colostomybowel sound is diminished. Extremities: She had a severe right hip arthritis, and she has also significant generalized osteoarthritis involving the spine and the upper and lower extremities and her hands. Assessment: Status post Exploratory laparotomy with the found masses in the ascending colon and that's stool in nature, and the barium enema has great picture for that so far no evidence of chair for malignancy. History of small bowel obstruction has been also resolved. Patient also currently nothing by mouth. Plan #1 continue postoperative surgical protocol #2 monitoring the patient intake and output. #3 she also followed by the nephrology and urology and patient was on antibiotic for the underlying UTI Klebsiella pneumonia as well as E. coli with sensitivity was the best for Rocephin which he given every 12 hours 1 g. Objective - Vital Signs Vital signs: Vital Signs Temp 98.6 F 02/12/19 14:41 Pulse 80 02/12/19 15:45 Resp 16 02/12/19 15:45 BP 156/70 02/12/19 15:45 Pulse Ox 98 02/12/19 15:45 Intake & Output 02/11/19 02/12/19 02/12/19 18:59 06:59 18:59 Intake Total 881.508 436.945 3654 Output Total 1502 1 1126 Balance -620.492 542.232 474 Weight 66 kg 66 kg Intake: IV 1600 Intake, IV Titration 881.508 543.232 Amount Dextrose 5%-0.9% NaCl 1, 600 450 000 ml @ 75 mls/hr IV . [id number] [facility] Rx#:[id number] Diltiazem 125 mg In 12.833 Sodium Chloride 0.9% 100 ml @ 10 MG/HR 10 mls/hr IV .[id number] [facility] Rx#: [id number] Heparin Sod,Pork in 0.45% 231.508 30.399 NaCl 25,000 unit In 0.45 % NaCl 1 250ml.bag @ 12 UNITS/KG/HR 8.165 mls/hr IV .Q24H [facility] Rx#: [id number] cefTRIAXone 1 gm In 50 50 Sodium Chloride 0.9% 50 ml @ 100 mls/hr IVPB Q12HR [facility] Rx#:[id number] Oral 0 Output: Gastric Drainage 150 Drainage 500 Right 500 Urine 1000 925 Stool 2 1 1 Estimated Blood Loss 50 Other: Voiding Method Self-Catheterization Indwelling Catheter Indwelling Catheter # Voids 1 - Labs CBC & Chem 7: 02/12/19 06:34 02/12/19 06:34 Labs: Abnormal Lab Results - Last 24 Hours (Table) 02/11/19 02/12/19 02/12/19 Range/Units 17:36 00:29 06:34 Plt Count 464 H (150-450) k/uL Neutrophils # 8.5 H (1.3-7.7) k/uL APTT 33.1 H 70.3 H (22.0-30.0) sec Sodium (137-145) mmol/L Chloride (98-107) mmol/L BUN (7-17) mg/dL Creatinine (0.52-1.04) mg/dL Glucose (74-99) mg/dL Magnesium (1.6-2.3) mg/dL 02/12/19 Range/Units 06:34 Plt Count (150-450) k/uL Neutrophils # (1.3-7.7) k/uL APTT (22.0-30.0) sec Sodium 147 H (137-145) mmol/L Chloride 111 H (98-107) mmol/L BUN 20 H (7-17) mg/dL Creatinine 1.84 H (0.52-1.04) mg/dL Glucose 118 H (74-99) mg/dL Magnesium 2.4 H (1.6-2.3) mg/dL Microbiology - Last 24 Hours (Table) 02/07/19 20:55 Blood Culture - Preliminary Blood No Growth after 96 hours
[2019-02-12] MEDS: HEPARIN SOD,PORK IN 0.45% NACL 25,000 UNIT in 0.45% NACL 1 250ML.BAG IV SCH (18:28)
[2019-02-13] MEDS: metroNIDAZOLE-NS PMX 500 MG in SALINE 1 100ML.BAG IVPB SCH ×3 (01:30→13:13)
[2019-02-13] MEDS: LACTULOSE 20 GM/30 ML CUP PO SCH ×3 (02:26→21:36)
[2019-02-13] MEDS: DULoxetine HCL 60 MG CAPSULE.DR PO SCH ×2 (02:26→21:05)
[2019-02-13] MEDS: ATORVASTATIN 10 MG TAB PO SCH ×2 (02:26→21:35)
[2019-02-13] MEDS: DEXTROSE 5%-0.45% NACL 1,000 ML IV SCH ×2 (05:41→21:03)
[2019-02-13] MEDS: METOPROLOL TARTRATE 5 MG/5 ML VIAL IVP SCH ×5 (05:42→17:21)
[2019-02-13 06:39] LABS: Basophils % (A) 0 %; Eosinophils % (A) 0 %; HCT 36.5 % (34.0-46.0); HGB 11.6 gm/dL (11.4-16.0); Hypochromasia Moderate; Lymphocytes % (A) 8 %; MCH 30.7 pg (25.0-35.0); MCHC 31.8 g/dL (31.0-37.0); MCV 96.6 fL (80.0-100.0); Mean Platelet Volume 7.4; Monocytes # (A) 0.4 k/uL (0-1.0); Monocytes % (A) 3 %; Neutrophils # (A) 11.1 k/uL (1.3-7.7); Neutrophils % (A) 87 %; Platelet Count 389 k/uL (150-450); RBC 3.78 m/uL (3.80-5.40); WBC 12.8 k/uL (3.8-10.6)
[2019-02-13 06:54] LABS: Magnesium 2.2 mg/dL (1.6-2.3); Potassium 3.9 mmol/L (3.5-5.1)
[2019-02-13] MEDS: BISACODYL 10 MG SUPP RECTAL SCH (07:58)
[2019-02-13] MEDS: MORPHINE SULFATE 2 MG/ML SYRINGE IVP PRN (08:03)
--- NOTE | 2019-02-13 09:36 | P.PN ---
<Siobhan Dugan Tiffany - Last Filed: 02/13/19 11:15> Subjective Progress Note Date: 02/13/19 CHIEF COMPLAINT: Abdominal pain HISTORY OF PRESENT ILLNESS: patient is status post exploratory laparotomy, extensive lysis of adhesions, sigmoid colectomy, and end colostomy. Postop day #1. Patient examined at the bedside. Patient remains on bipap at 60%. She complains of abdominal pain. Dressing to abdomen clean dry intact. Ostomy with small amount of stool noted. NG to LIS with bilious output. PHYSICAL EXAM: VITAL SIGNS: Reviewed. GENERAL: Well-developed in no acute distress. HEENT: No sclera icterus. Extraocular movements grossly intact. Moist buccal mucosa. Head is atraumatic, normocephalic. ABDOMEN: Dressing to abdomen clean dry intact. Ostomy with small amount of stool noted. NG to LIS with bilious output. NEUROLOGIC: Awake and alert. Appears slightly confused. ASSESSMENT: 1. Abdominal pain, status post exploratory laparotomy, extensive lysis of adhesions, sigmoid colectomy, and end colostomy PLAN: Wean bipap as tolerated. Incentive spirometer when weaned off bipap. Will consult pulmonary for evaluation Continue NPO. Begin PPN Continue NG to LIS Consult ostomy resource RN for ostomy education Pain control. Nursing reports less confusion with Morphine than Dilaudid. Will continue with Morphine as needed. Will increase dose as nursing reports dose does not appear to be adequate for pain control. Will add IV Tylenol Nurse practitioner note has been reviewed by physician. Signing provider agrees with the documented findings, assessment, and plan of care. Objective - Vital Signs Vital signs: Vital Signs Temp 98.8 F 02/13/19 04:00 Pulse 75 02/13/19 08:00 Resp 16 02/13/19 08:00 BP 139/66 02/13/19 08:00 Pulse Ox 98 02/13/19 08:00 Intake & Output 02/12/19 02/13/19 02/13/19 18:59 06:59 18:59 Intake Total 1600 1250 Output Total 2627 279 Balance -1027 971 Weight 66 kg 68 kg Intake: IV 1600 Intake, IV Titration 1250 Amount Dextrose 5%-0.9% NaCl 1, 1200 000 ml @ 75 mls/hr IV . [id number] [facility] Rx#:[id number] cefTRIAXone 1 gm In 50 Sodium Chloride 0.9% 50 ml @ 100 mls/hr IVPB Q12HR [facility] Rx#:[id number] Oral 0 Output: Gastric Drainage 150 0 Drainage 1500 0 Right 1500 0 Urine 925 275 Stool 2 4 Estimated Blood Loss 50 Other: Voiding Method Indwelling Catheter Indwelling Catheter # Voids 1 1 - Labs CBC & Chem 7: 02/13/19 06:17 02/13/19 06:17 Labs: Abnormal Lab Results - Last 24 Hours (Table) 02/13/19 02/13/19 Range/Units 06:17 06:17 WBC 12.8 H (3.8-10.6) k/uL RBC 3.78 L (3.80-5.40) m/uL Neutrophils # 11.1 H (1.3-7.7) k/uL Sodium 148 H (137-145) mmol/L Chloride 113 H (98-107) mmol/L BUN 24 H (7-17) mg/dL Creatinine 2.20 H (0.52-1.04) mg/dL Glucose 142 H (74-99) mg/dL Microbiology - Last 24 Hours (Table) 02/07/19 20:55 Blood Culture - Preliminary Blood No Growth after 120 hours <Soham Miller - Last Filed: 02/13/19 19:39> Subjective As above. Patient with some loose stools and ostomy bag. Oxygen requirements improved. Pain control. Continue nasogastric tube to suction. Keep nothing by mouth. May require PICC line. Objective - Vital Signs Vital signs: Vital Signs Temp 98.8 F 02/13/19 04:00 Pulse 79 02/13/19 16:00 Resp 16 02/13/19 16:00 BP 108/59 02/13/19 16:00 Pulse Ox 96 02/13/19 16:00 Intake & Output 02/13/19 02/13/19 02/14/19 06:59 18:59 06:59 Intake Total 1250 1350 Output Total 279 303 Balance 971 1047 Weight 68 kg 68 kg Intake: Intake, IV Titration 1250 1350 Amount Dextrose 5%-0.45% NaCl 1, 1200 000 ml @ 150 mls/hr IV . [id number] [facility] Rx#:[id number] Dextrose 5%-0.9% NaCl 1, 1200 000 ml @ 75 mls/hr IV . [id number] [facility] Rx#:[id number] cefTRIAXone 1 gm In 50 50 Sodium Chloride 0.9% 50 ml @ 100 mls/hr IVPB Q12HR [facility] Rx#:[id number] metroNIDAZOLE-NS PMX 500 100 mg In Saline 1 100ml.bag @ 100 mls/hr IVPB Q8H [facility] Rx#:[id number] Oral 0 Output: Gastric Drainage 0 Drainage 0 300 Right 0 300 Urine 275 Stool 4 3 Other: Voiding Method Indwelling Catheter Indwelling Catheter # Voids 1 - Labs CBC & Chem 7: 02/13/19 06:17 02/13/19 06:17 Labs: Abnormal Lab Results - Last 24 Hours (Table) 02/13/19 02/13/19 Range/Units 06:17 06:17 WBC 12.8 H (3.8-10.6) k/uL RBC 3.78 L (3.80-5.40) m/uL Neutrophils # 11.1 H (1.3-7.7) k/uL Sodium 148 H (137-145) mmol/L Chloride 113 H (98-107) mmol/L BUN 24 H (7-17) mg/dL Creatinine 2.20 H (0.52-1.04) mg/dL Glucose 142 H (74-99) mg/dL Microbiology - Last 24 Hours (Table) 02/07/19 20:55 Blood Culture - Preliminary Blood No Growth after 120 hours Assessment and Plan (1) Abdominal pain Current Visit: Yes Status: Acute Code(s): R10.9 - UNSPECIFIED ABDOMINAL PAIN SNOMED Code(s): 71083332
--- NOTE | 2019-02-13 12:17 | P.PN ---
Subjective Progress Note Date: 02/13/19 (large bowel obstruction with stool and small bowel obstruction) Principal diagnosis: mechanical obstruction with small bowel and distended abdomen with history of adhesions in the past. The progress note dictated on 02/08/2090 by Patient with history notable bowel movement or stool or passing flatus for more than one week duration x-ray indicating small bowel mechanical obstruction. And patient currently nothing by mouth with NG tube which she did some relief. Her vital sign temperature 90.8 orally F Fahrenheit and her pulse rate 80 and she developed on the surgical floor atrial fibrillation with a rate of 1:30 P 8/m patient transferred to detention officer floor with cardiology consultation which she was started on cardiac exam drip. And seen by Dr. ISATU Zamudio. Respiratory rate 16 and her blood pressure is hypertensive in spite of trial of medication 187/84. She is on nasal cannula 2 L of oxygen with a pulse ox 95%. current laboratories indicating that her WBC 5.3 with a hemoglobin 11.6, her platelet count 414.next is her PTT 32.6with the normal range 30.6. Minimally elevated. Chemistry indicating sodium 144 potassium 3.8 chloride 108 carbon dioxid 28, anion gap 8, BUN 20, creatinine 1.94, EGFR 23 with chronic kidney disease stage IV. Glucose 131AST and LT normal alk phos 137 total protein 6.1 and albumin 3.4 thyroid function is normal and the free T3 some little bit lower than normal that is because of her illness Nephrology evaluation and assessment indicating patient with the UTI Klebsiella pneumonia and E. coli treated according to the culture with the assessment acute kidney injury possibly prerenal improved with hydration. Chronic kidney disease stage IV with the creatinine near 2 secondary to hydronephrosis and left renal a trophy. #3 abdominal pain with questionable diverticulitis and chronic obstruction and NG tube for decompression. Neurogenic bladder and uses a catheterization 4-5 a day metabolic acidosis and she is on bicarb hypertension is controlled and UTI. Physical exam patient status post barium enema and patient the result reviewed by Dr. Sahu and his impression will be discussed with the family. HEENT was negative neck was supple and chest was clear and the heart was currently controlled atrophic And abdomen is tender distended and with the small bowel obstruction extremities no edema. Assessment small bowel obstruction mechanical and high fall to the patient should have surgical intervention. However this is a surgical case and up to the family and the surgeon. progress note dictation date of service 02/13/2019, dictated by Dr. Engel. Patient seen and evaluated and she had Murphy catheter in place as well as she has BiPAP. She is severely tender on the abdomen status post colostomy colonic on the left sided. Seen by the PA of surgery and they consulted Dr. Egan pulmonary and critical care, as the patient on BiPAP. And may need further pulmonary care. Patient is sedated however she is very sensitive to touch of the abdomen. Temperature 98.8 F oral, heart rate 75-85 regular sinus respiratory rate 16/m she'll follow, blood pressure 139/66 with a mean 90 and her oxygen saturation BiPAP 98% with a FiO2 of 60. Laboratories: Sodium 138 potassium 3.9, chloride is 113 and 9 5. CO2 30 her BUN 24 and creatinine 2.2 her EGFR is 20. Glucose is 142 the patient on D5 0.9 normal saline her calcium is 9 and magnesium is 2.0 normal today Patient followed by Dr. Sahu surgeon who did the surgery, followed also by cardiology with a history earlier ATRIAL fibrillation currently his sinus, followed by Dr. Vences/Dr. Arrington nephrology with a chronic kidney disease stage IV., Followed by Dr. Delarosa/Gene urologist. With the underlying history of either ureter hydronephrosis was loss of function of the left kidney. On examination: Patient sleepy see dictated but responding to painful stimuli has anybody touch her abdomen. Patient nothing by mouth. Murphy catheter in place. Lung is created bilaterally, on BiPAP and critical care and pulmonary consulted Dr. Egan Heart regular sinus rhythm followed by the cardiology. Abdomen normal bowel sounds, status post left colostomy, followed by Dr. Miller surgeon. Extremities: No edema and positive pulses. She has advanced right hip arthritis as well. Assessment: #1 status post exploratory laparotomy #2 large bowel obstruction status post colostomy #3 small bowel obstruction mechanical secondary to the above. #4 chronic kidney disease stage IV #5 right [place] ureter hydronephrosis with the left kidney atrophy. #6 mild elevation of alkaline phosphatase, and hypernatremia. #7 still abdominal pain and recovery from the surgery. Plan: Continue consultation with pulmonary and critical. Continue the current treatment. We'll continue monitoring. Objective - Vital Signs Vital signs: Vital Signs Temp 98.8 F 02/13/19 04:00 Pulse 75 02/13/19 08:00 Resp 16 02/13/19 08:00 BP 139/66 02/13/19 08:00 Pulse Ox 98 02/13/19 08:00 Intake & Output 02/12/19 02/13/19 02/13/19 18:59 06:59 18:59 Intake Total 1600 1250 Output Total 2627 279 Balance -1027 971 Weight 66 kg 68 kg 68 kg Intake: IV 1600 Intake, IV Titration 1250 Amount Dextrose 5%-0.9% NaCl 1, 1200 000 ml @ 75 mls/hr IV . [id number] [facility] Rx#:[id number] cefTRIAXone 1 gm In 50 Sodium Chloride 0.9% 50 ml @ 100 mls/hr IVPB Q12HR [facility] Rx#:[id number] Oral 0 Output: Gastric Drainage 150 0 Drainage 1500 0 Right 1500 0 Urine 925 275 Stool 2 4 Estimated Blood Loss 50 Other: Voiding Method Indwelling Catheter Indwelling Catheter Indwelling Catheter # Voids 1 1 - Labs CBC & Chem 7: 02/13/19 06:17 02/13/19 06:17 Labs: Abnormal Lab Results - Last 24 Hours (Table) 02/13/19 02/13/19 Range/Units 06:17 06:17 WBC 12.8 H (3.8-10.6) k/uL RBC 3.78 L (3.80-5.40) m/uL Neutrophils # 11.1 H (1.3-7.7) k/uL Sodium 148 H (137-145) mmol/L Chloride 113 H (98-107) mmol/L BUN 24 H (7-17) mg/dL Creatinine 2.20 H (0.52-1.04) mg/dL Glucose 142 H (74-99) mg/dL Microbiology - Last 24 Hours (Table) 02/07/19 20:55 Blood Culture - Preliminary Blood No Growth after 120 hours
[2019-02-13] MEDS ORDERED: MVI, ADULT NO.4 WITH VIT K 10 ML, TRACE (CONC-1ML/DOSE) 1 ML, POTASSIUM ACETATE 20 MEQ,... IV ONE ×6 (13:00)
--- NOTE | 2019-02-13 13:00 | P.PN ---
Subjective Progress Note Date: 02/13/19 this is a pleasant 83-year-old female with documented history of hypertension, hyperlipidemia, chronic renal insufficiency,she is a nondiabetic and nonsmoker, initially presented to the hospital with symptoms of moderate to severe abdominal painand was found to have a bowel obstruction, the plan is to proceed with surgery for that. Last evening patient went into atrial fibrillation with a rapid ventricular response, has since converted to normal sinus rhythm. Cardiology consultation was requested for preop clearance as well as for the atrial fibrillation. According to the patient, she denies being told to have atrial fibrillation in the past however she does state that she had an irregular heartbeat at the time of her appendix surgery several years ago.her initial EKG on presentation here showed a normal sinus rhythm with occasional PVCs and PACs. EKG from last night showed atrial fibrillation with a rapid ventricular response.chest x-ray was performed this morning and is yet p ending.blood pressure 148/74 with a heart rate in the 80s, 96% on 3 L of oxygen. Her white blood cell count is normal, hemoglobin 12.0, platelet count 432.admission labs, sodium 138, potassium 4.4, BUN 27, creatinine 1.9.this morning, sodium 145, potassium 3.8, BUN 20, creatinine 2.0, free T4 1 0.4, magnesium 2.4. Patient currently hasan NG tube in place, she is currently on IV heparin, was given IV Cardizem last night. Is not currently on IV Cardizem drip.at the time of my examination, her abdominal pain since the NG tube was placed has resolved. Overall she states that she feels well this morning. Patient denies any recent chest discomfort or palpitations, no recent episodes of any shortness of breath, overall has been quite physically active with no symptoms. 02/13/2019 Patient underwent exploratory laparotomy with extensive lysis of adhesions, sigmoid colectomy and colostomy yesterday by Dr. joel. The patient was seen and examined this morning, overall doing well.she remains on BiPAP at 60%, still complaining of some abdominal discomfort this morning her dressings on the ab domen are dry and intact.I pressure 138/60 with a heart rate in the 70s. 98.8 temperature.White blood cell count 12.8, hemoglobin 11.6, platelet count 389. Sodium 148, potassium 3.9, BUN 24, creatinine 2.2.remaining in normal sinus rhythm Objective - Vital Signs Vital signs: Vital Signs Temp 98.8 F 02/13/19 04:00 Pulse 75 02/13/19 08:00 Resp 16 02/13/19 12:00 BP 139/66 02/13/19 08:00 Pulse Ox 95 02/13/19 12:07 Intake & Output 02/12/19 02/13/19 02/13/19 18:59 06:59 18:59 Intake Total 1600 1250 Output Total 2627 279 2 Balance -1027 971 -2 Weight 66 kg 68 kg 68 kg Intake: IV 1600 Intake, IV Titration 1250 Amount Dextrose 5%-0.9% NaCl 1, 1200 000 ml @ 75 mls/hr IV . [id number] [facility] Rx#:[id number] cefTRIAXone 1 gm In 50 Sodium Chloride 0.9% 50 ml @ 100 mls/hr IVPB Q12HR [facility] Rx#:[id number] Oral 0 Output: Gastric Drainage 150 0 Drainage 1500 0 Right 1500 0 Urine 925 275 Stool 2 4 2 Estimated Blood Loss 50 Other: Voiding Method Indwelling Catheter Indwelling Catheter Indwelling Catheter # Voids 1 1 - Exam PHYSICAL EXAMINATION: GENERAL:83-year-old female in no acute distress at the time of my examination HEENT: Head is atraumatic, normocephalic. Pupils equal, round. Sclera anicteric. Conjunctiva are clear. Mucous membranes of the mouth are moist. Neck is supple. There is no elevated jugular venous pressure.no carotid bruit is heard.NG tube in place HEART EXAMINATION: [Heart S1, S2 systolic murmur is heard.] CHEST EXAMINATION:[ Lungs are clear to auscultation and precussion. No chest wall tenderness is noted on palpation or with deep breathing.] ABDOMEN: diffuse mild tenderness,dressing on the abdomen is dry and intact, colostomy in place EXTREMITIES:[ 2+ peripheral pulses with no evidence of peripheral edema and no calf tenderness noted]. NEUROLOGIC [patient is awake, alert and oriented 3 - Labs CBC & Chem 7: 02/13/19 06:17 02/13/19 06:17 Labs: Abnormal Lab Results - Last 24 Hours (Table) 02/13/19 02/13/19 Range/Units 06:17 06:17 WBC 12.8 H (3.8-10.6) k/uL RBC 3.78 L (3.80-5.40) m/uL Neutrophils # 11.1 H (1.3-7.7) k/uL Sodium 148 H (137-145) mmol/L Chloride 113 H (98-107) mmol/L BUN 24 H (7-17) mg/dL Creatinine 2.20 H (0.52-1.04) mg/dL Glucose 142 H (74-99) mg/dL Microbiology - Last 24 Hours (Table) 02/07/19 20:55 Blood Culture - Preliminary Blood No Growth after 120 hours Assessment and Plan Plan: assessment and plan #1 small bowel obstructionStatus post resection #2 atrial fibrillation with rapid ventricular response, paroxysmal, patient currently in normal sinus rhythm #3 urinary retention with current UTI #4 hypertension #5 hyperlipidemia Plan patient at this time as the remaining in normal sinus rhythm, she will need to be initiated onEliquis 2-1/2 mg one tablet by mouth twice a day once she is cleared from a surgical perspective. DNP note has been reviewed, I agree with a documented findings and plan of care. Patient was seen and examined.
[2019-02-13] MEDS: MORPHINE SULFATE 4 MG/ML SYRINGE IVP PRN (13:07)
[2019-02-13] MEDS: ACETAMINOPHEN IV (For NPO) 1,000 MG in EMPTY BAG 1 BAG IVPB SCH ×2 (13:12→17:18)
--- NOTE | 2019-02-13 13:14 | P.PN ---
Subjective Patient is seen in follow-up for acute kidney injury on chronic kidney disease. Renal function is a little worse today. Creatinine 2.2. Sodium level is up to 148. She is currently maintained on half normal saline.Currently has an NG tube. Underwent exploratory laparotomy with sigmoid colectomy and end colostomy yesterday. Admits to pain at the surgical site. Vital signs are stable. General: The patient appeared well nourished and normally developed. HEENT: Head exam is unremarkable. Neck is without jugular venous distension. NG tube present. LUNGS: Lungs are clear to auscultation and percussion. Breath sounds decreased. HEART: Rate and Rhythm are regular. First and second heart sounds normal. No murmurs, rubs or gallops. ABDOMEN: Bowel sounds present. Generalized tenderness. EXTREMITITES: No clubbing, cyanosis, or edema. Objective - Vital Signs Vital signs: Vital Signs Temp 98.8 F 02/13/19 04:00 Pulse 75 02/13/19 08:00 Resp 16 02/13/19 12:00 BP 139/66 02/13/19 08:00 Pulse Ox 95 02/13/19 12:07 Intake & Output 02/12/19 02/13/19 02/13/19 18:59 06:59 18:59 Intake Total 1600 1250 Output Total 2627 279 2 Balance -1027 971 -2 Weight 66 kg 68 kg 68 kg Intake: IV 1600 Intake, IV Titration 1250 Amount Dextrose 5%-0.9% NaCl 1, 1200 000 ml @ 75 mls/hr IV . [id number] [facility] Rx#:[id number] cefTRIAXone 1 gm In 50 Sodium Chloride 0.9% 50 ml @ 100 mls/hr IVPB Q12HR [facility] Rx#:[id number] Oral 0 Output: Gastric Drainage 150 0 Drainage 1500 0 Right 1500 0 Urine 925 275 Stool 2 4 2 Estimated Blood Loss 50 Other: Voiding Method Indwelling Catheter Indwelling Catheter Indwelling Catheter # Voids 1 1 - Labs CBC & Chem 7: 02/13/19 06:17 02/13/19 06:17 Labs: Abnormal Lab Results - Last 24 Hours (Table) 02/13/19 02/13/19 Range/Units 06:17 06:17 WBC 12.8 H (3.8-10.6) k/uL RBC 3.78 L (3.80-5.40) m/uL Neutrophils # 11.1 H (1.3-7.7) k/uL Sodium 148 H (137-145) mmol/L Chloride 113 H (98-107) mmol/L BUN 24 H (7-17) mg/dL Creatinine 2.20 H (0.52-1.04) mg/dL Glucose 142 H (74-99) mg/dL Microbiology - Last 24 Hours (Table) 02/07/19 20:55 Blood Culture - Preliminary Blood No Growth after 120 hours Assessment and Plan Plan: Assessment: 1. Acute kidney injury mostly prerenal improved with IV hydration. Renal function little worse today due to hemodynamics, NG output. Cr 2.2 today. 2. Chronic kidney disease stage IV with baseline creatinine near 2 secondary to nephrosclerosis and left renal atrophy. 3. Abdominal pain. Possibly diverticulitis with colonic obstruction. Surgery following. Currently has an NG tube. S/p exp lap with sigmoid colectomy and end colostomy 02/12/19 . 4. Neurogenic bladder. Patient performs self catheterizations 4-5 times daily. Now has Murphy. 5. Metabolic alkalosis secondary to hydration ion losses from NG output. 6. Hypertension with chronic kidney disease. 7. UTI with urine culture positive for Klebsiella and E. coli maintained on antibiotics. 8. Hypernatremia secondary to lack of oral water intake. 9. A-fib s/p heparin drip. Cardiology following. Plan: Increase rate of D5 half-normal saline to 150 mL an hour - if sodium level rises further, will change fluids to D5W. Avoid nephrotoxins. Continue to monitor renal function and urine output.
--- NOTE | 2019-02-13 14:27 | P.CNPUL ---
History of Present Illness Consult date: 02/13/19 Requesting physician: Rodriguez Engel Reason for consult: hypoxemia Chief complaint: Abdominal discomfort History of present illness: This is a pleasant 83-year-old female patient admitted back on 02/07/2019 with complaints of constipation and abdominal discomfort. She had not moved her bowels for several days prior. Abdominal x-rays did show evidence of constipation. Fleet enema and MiraLAX at home were unsuccessful. She was subsequently admitted for abdominal bloating and discomfort. She was found to have a colon obstruction and yesterday had undergone exposure laparotomy, extensive lysis of adhesions, sigmoid colectomy, end colostomy done by Dr. Miller. She remained hypoxic postoperatively and was placed on BiPAP with an FiO2 of 80%. We're consulted for the same. No chest x-ray was done. She is seen today on the selective care unit. She is currently awake and alert in no acute distress. She is having some ongoing abdominal discomfort. She has a midline incision with maggy intact and a colostomy with stool present. She is currently on 6 L high flow nasal cannula and maintaining O2 saturation in the mid 90s. She denies any worsening shortness of breath, cough or congestion. Urine culture was positive for Klebsiella pneumoniae and E coli. Blood cultures had revealed no growth. White count 12.8. Hemoglobin 11.6. Sodium 148. Potassium 3.9. Creatinine 2.20. She has D5.45 running at 100 ML's per hour. She is currently on ceftriaxone and Flagyl. PPN and lipids have been ordered. The patient was having issues with atrial fibrillation preoperatively and was initially on a heparin drip. The plan from cardiology is to initiate Eliquis once cleared surgically. Review of Systems REVIEW OF SYSTEMS: CONSTITUTIONAL: Denies any recent significant weight loss or weight gain. EYES: Denies change in vision. EARS, NOSE, MOUTH, THROAT: Denies headaches, denies sore throat. CARDIOVASCULAR: Denies chest pain, palpitations or syncopal episodes. RESPIRATORY: Denies shortness of breath, cough, congestion or hemoptysis. GASTROINTESTINAL: Abdominal discomfort GENITOURINARY: Denies hematuria, denies infections. MUSKULOSKELETAL: Denies pain, denies swelling. INTEGUMENTARY: Denies rash, denies eczema. NEUROLOGICAL: Denies recent memory loss, no recent seizure activity. PSYCHIATRIC: Denies anxiety, denies depression. HEMATOLOGIC/LYMPHATIC: Denies anemia, denies enlarged lymph nodes. Past Medical History Past Medical History: Hyperlipidemia, Hypertension, Osteoarthritis (OA), Renal Disease Additional Past Medical History / Comment(s): one functioning kidney, cervical ca, urethral ca, right hip pain History of Any Multi-Drug Resistant Organisms: None Reported Past Surgical History: Appendectomy, Bowel Resection Additional Past Surgical History / Comment(s): bowel resection, kidney tumor removed Past Psychological History: No Psychological Hx Reported Smoking Status: Never smoker Past Alcohol Use History: None Reported Past Drug Use History: None Reported Additional History: The patient is unable to recall any significant family history. Medications and Allergies Home Medications Medication Instructions Recorded Confirmed Type Atorvastatin [Lipitor] 10 mg PO Q48H 02/07/19 02/09/19 History Cholecalciferol [Vitamin D3 (25 1,000 unit PO DAILY 02/07/19 02/07/19 History Mcg = 1000 Iu)] DULoxetine HCL [Cymbalta] 60 mg PO HS 02/07/19 02/09/19 History Diclofenac Sodium Gel [Voltaren 1 applic TOPICAL DAILY PRN 02/07/19 02/07/19 History Gel] Sodium Bicarbonate 325 mg PO BID 02/07/19 02/07/19 History amLODIPine [Norvasc] 5 mg PO BID 02/07/19 02/09/19 History cloNIDine HCL [Catapres] 0.1 mg PO BID 02/07/19 02/09/19 History hydrALAZINE HCL 50 mg PO BID-W/MEALS 02/07/19 02/09/19 History Azithromycin [Zithromax Z-pack] See Taper PO DIRECTED 02/09/19 02/09/19 History Metoprolol Tartrate 25 mg PO BID 02/09/19 02/09/19 History Polyethylene Glycol 3350 [Miralax] 17 gm PO DAILY 02/09/19 02/09/19 History Allergies Allergy/AdvReac Type Severity Reaction Status Date / Time No Known Allergies Allergy Verified 02/12/19 11:01 Physical Exam Vitals: Vital Signs Temp Pulse Resp BP Pulse Ox 02/13/19 12:07 95 02/13/19 12:00 16 02/13/19 08:00 75 16 139/66 98 02/13/19 04:00 98.8 F 85 12 151/72 97 02/13/19 02:30 93 12 116/58 96 02/13/19 00:00 93 12 126/68 96 02/12/19 21:00 89 12 149/70 95 02/12/19 20:00 85 18 143/74 96 02/12/19 18:38 81 16 134/71 02/12/19 18:23 79 16 130/62 98 02/12/19 17:00 71 16 135/65 96 02/12/19 16:45 75 16 145/75 98 02/12/19 16:30 85 16 139/65 96 02/12/19 16:00 16 181/89 91 L 02/12/19 15:45 80 16 156/70 98 02/12/19 15:42 76 14 154/66 98 02/12/19 15:30 73 16 168/77 98 02/12/19 15:15 66 22 187/82 99 02/12/19 15:00 65 12 185/84 97 02/12/19 14:41 98.6 F 94 20 183/88 93 L Intake and Output 02/12/19 02/13/19 02/13/19 22:59 06:59 14:59 Intake Total 400 1250 Output Total 1903 277 2 Balance -1503 973 -2 Intake: IV 400 Intake, IV Titration 1250 Amount Dextrose 5%-0.9% NaCl 1, 1200 000 ml @ 75 mls/hr IV . [id number] [facility] Rx#:[id number] cefTRIAXone 1 gm In 50 Sodium Chloride 0.9% 50 ml @ 100 mls/hr IVPB Q12HR [facility] Rx#:[id number] Oral 0 Output: Gastric Drainage 0 Drainage 1500 0 Right 1500 0 Urine 400 275 Stool 3 2 2 Other: Voiding Method Indwelling Catheter Indwelling Catheter Indwelling Catheter # Voids 1 Weight 68 kg 68 kg GENERAL EXAM: Alert, pleasant 83-year-old female patient, on 6 L high flow nasal cannula, comfortable in no apparent distress. HEAD: Normocephalic. EYES: Normal reaction of pupils, equal size. NOSE: Nasogastric tube secured in place. Clear with pink turbinates. THROAT: No erythema or exudates. NECK: No masses, no JVD. CHEST: No chest wall deformity. LUNGS: Equal air entry with no crackles, wheeze, rhonchi or dullness. CVS: S1 and S2 normal with no audible murmur, regular rhythm. ABDOMEN: Midline incision with maggy intact, colostomy functioning. SPINE: No scoliosis or deformity SKIN: No rashes CENTRAL NERVOUS SYSTEM: No focal deficits, tone is normal in all 4 extremities. EXTREMITIES: There is no peripheral edema. No clubbing, no cyanosis. Peripheral pulses are intact. Results - Laboratory Findings CBC and BMP: 02/13/19 06:17 02/13/19 06:17 PT/INR, D-dimer PT 9.8 sec (9.0-12.0) 02/10/19 17:59 INR 0.9 (<1.2) 02/10/19 17:59 Abnormal lab findings: Abnormal Labs 02/07/19 02/07/19 02/07/19 14:50 14:50 22:15 WBC 11.8 H RBC Hgb Plt Count Neutrophils # 9.4 H Lymphocytes # Lymphocytes # (Manual) Monocytes # (Manual) APTT Sodium 136 L Potassium Chloride Carbon Dioxide 21 L BUN 34 H Creatinine 2.42 H Glucose 132 H Magnesium Alkaline Phosphatase Total Protein Albumin Free T3 pg/mL Urine Appearance Cloudy H Urine Protein 1+ H Ur Leukocyte Esterase Large H Urine RBC 6 H Urine WBC 74 H Urine Bacteria Many H Urine Mucus Rare H 02/08/19 02/08/19 02/09/19 06:46 06:46 06:16 WBC 11.8 H RBC 3.61 L Hgb 11.2 L Plt Count Neutrophils # 9.5 H Lymphocytes # Lymphocytes # (Manual) Monocytes # (Manual) APTT Sodium Potassium 3.1 L Chloride Carbon Dioxide BUN 34 H Creatinine 2.12 H Glucose 135 H Magnesium Alkaline Phosphatase Total Protein Albumin Free T3 pg/mL Urine Appearance Urine Protein Ur Leukocyte Esterase Urine RBC Urine WBC Urine Bacteria Urine Mucus 02/09/19 02/10/19 02/10/19 06:16 06:27 06:27 WBC RBC Hgb Plt Count Neutrophils # Lymphocytes # 0.7 L Lymphocytes # (Manual) Monocytes # (Manual) APTT Sodium Potassium Chloride 108 H 109 H Carbon Dioxide BUN 27 H 23 H Creatinine 1.93 H 2.05 H Glucose 125 H 136 H Magnesium 2.6 H Alkaline Phosphatase Total Protein Albumin Free T3 pg/mL Urine Appearance Urine Protein Ur Leukocyte Esterase Urine RBC Urine WBC Urine Bacteria Urine Mucus 02/10/19 02/11/19 02/11/19 17:59 06:44 06:44 WBC RBC Hgb Plt Count Neutrophils # Lymphocytes # Lymphocytes # (Manual) 0.65 L 0.93 L Monocytes # (Manual) 1.11 H 1.36 H APTT Sodium Potassium Chloride Carbon Dioxide BUN 20 H Creatinine 2.07 H Glucose 110 H Magnesium 2.4 H Alkaline Phosphatase Total Protein Albumin Free T3 pg/mL 1.7 L Urine Appearance Urine Protein Ur Leukocyte Esterase Urine RBC Urine WBC Urine Bacteria Urine Mucus 02/11/19 02/11/19 02/11/19 09:17 09:17 09:17 WBC RBC Hgb Plt Count Neutrophils # Lymphocytes # 0.8 L Lymphocytes # (Manual) Monocytes # (Manual) APTT 32.6 H Sodium Potassium Chloride 108 H Carbon Dioxide BUN 20 H Creatinine 1.94 H Glucose 131 H Magnesium Alkaline Phosphatase 137 H Total Protein 6.1 L Albumin 3.4 L Free T3 pg/mL Urine Appearance Urine Protein Ur Leukocyte Esterase Urine RBC Urine WBC Urine Bacteria Urine Mucus 02/11/19 02/12/19 02/12/19 17:36 00:29 06:34 WBC RBC Hgb Plt Count 464 H Neutrophils # 8.5 H Lymphocytes # Lymphocytes # (Manual) Monocytes # (Manual) APTT 33.1 H 70.3 H Sodium Potassium Chloride Carbon Dioxide BUN Creatinine Glucose Magnesium Alkaline Phosphatase Total Protein Albumin Free T3 pg/mL Urine Appearance Urine Protein Ur Leukocyte Esterase Urine RBC Urine WBC Urine Bacteria Urine Mucus 02/12/19 02/13/19 02/13/19 06:34 06:17 06:17 WBC 12.8 H RBC 3.78 L Hgb Plt Count Neutrophils # 11.1 H Lymphocytes # Lymphocytes # (Manual) Monocytes # (Manual) APTT Sodium 147 H 148 H Potassium Chloride 111 H 113 H Carbon Dioxide BUN 20 H 24 H Creatinine 1.84 H 2.20 H Glucose 118 H 142 H Magnesium 2.4 H Alkaline Phosphatase Total Protein Albumin Free T3 pg/mL Urine Appearance Urine Protein Ur Leukocyte Esterase Urine RBC Urine WBC Urine Bacteria Urine Mucus Assessment and Plan Assessment: 1 Abdominal discomfort with constipation and colon obstruction status post 6 posterior laparotomy, extensive lysis of adhesions, sigmoid colectomy, end colostomy. Postoperative day #1. 2 Acute hypoxic respiratory failure in the immediate postoperative period requiring BiPAP support. Currently on 6 L high flow nasal cannula. Chest x-ray pending. 3 Atrial fibrillation with a rapid ventricular response initially on a heparin drip. Currently on hold due to surgery. Currently in sinus rhythm. The plan is for initiation of Eliquis once cleared surgically. 4 Urinary tract infection secondary to Klebsiella pneumoniae and E. coli 5 Lifelong nonsmoker. 6 Hypertension. 7 Hyperlipidemia. 8 Acute on chronic renal failure. Current creatinine 2.20. 9 Hyponatremia, sodium 148, currently on D5.45 at 100 ML's per hour. Plan: The patient was seen and evaluated by Dr. Head. We will obtain a chest x- ray today. Add incentive spirometer and encourage cough and deep breathing exercises. Titrate down the FiO2 as tolerated. The patient is a lifelong nonsmoker. Increase her activity as tolerated. Adequate pain control. We will continue to follow and make further recommendations based on her clinical status. I, the cosigning physician, performed a history & physical examination of the patient. Lungs sounds are clear anteriorly, crackles in the posterior bases. Maintaining good O2 saturations in the 90s on 6 L high flow nasal cannula. I discussed the assessment and plan of care with my nurse practitioner, Jenelle Heaton. I attest to the above consultation as dictated by her. Time with Patient: Greater than 30
--- NOTE | 2019-02-13 17:06 | XR ---
EXAMINATION TYPE: XR chest 1V portable DATE OF EXAM: 02/13/2019 COMPARISON: 08/05/2009 HISTORY: Cough TECHNIQUE: Single view FINDINGS: Heart is enlarged. There is blunting of the costophrenic angles bilaterally and more on the right side. There is moderately large right pleural effusion. There is mild pulmonary congestion. Th oracic aorta is atheromatous. There is osteoarthritis in both shoulder joints. There are chest leads. There is nasogastric tube in the stomach. IMPRESSION: Moderate-sized bilateral pleural effusions larger on the right side. Pleural fluid is new compared to old exam. There is probably mild heart failure. IMPRESSION:
[2019-02-13] MEDS: FAT EMULSION 20% 250 ML IV SCH (17:11)
[2019-02-13] MEDS: IPRATROPIUM-ALBUTEROL 3 ML NEB INHALATION SCH (20:07)
[2019-02-13 22:43] LABS: Basophils # (A) 0.1 k/uL (0-0.2); Basophils % (A) 1 %; Eosinophils # (A) 0.2 k/uL (0-0.7); Eosinophils % (A) 1 %; HCT 35.4 % (34.0-46.0); HGB 10.6 gm/dL (11.4-16.0); Hypochromasia Moderate; Lymphocytes % (A) 6 %; MCH 29.1 pg (25.0-35.0); MCHC 29.9 g/dL (31.0-37.0); MCV 97.3 fL (80.0-100.0); Mean Platelet Volume 7.5; Monocytes # (A) 1.1 k/uL (0-1.0); Monocytes % (A) 7 %; Neutrophils % (A) 84 %; Platelet Count 305 k/uL (150-450); RBC 3.63 m/uL (3.80-5.40); RDW 14.4 % (11.5-15.5); WBC 15.6 k/uL (3.8-10.6)
[2019-02-13 22:48] LABS: Calcium 8.8 mg/dL (8.4-10.2); Magnesium 2.2 mg/dL (1.6-2.3); Potassium 3.4 mmol/L (3.5-5.1)
[2019-02-13] MEDS: HEPARIN SOD,PORK IN 0.45% NACL 25,000 UNIT in 0.45% NACL 1 250ML.BAG IV SCH (23:05)
[2019-02-13] MEDS ORDERED: INSULIN ASPART (NovoLOG) 100 UNIT/ML VIAL SQ SCH (23:15)
[2019-02-14 00:31] LABS: Glucose,Whole Blood 114 mg/dL (75-99)
[2019-02-14] MEDS: metroNIDAZOLE-NS PMX 500 MG in SALINE 1 100ML.BAG IVPB SCH ×4 (00:32→21:31)
[2019-02-14] MEDS: DEXTROSE 5%-0.45% NACL 1,000 ML IV SCH ×2 (00:53→16:21)
[2019-02-14] MEDS: INSULIN ASPART (NovoLOG) 100 UNIT/ML VIAL SQ SCH ×4 (00:53→17:21)
[2019-02-14] MEDS: METOPROLOL TARTRATE 5 MG/5 ML VIAL IVP SCH ×3 (01:01→11:39)
[2019-02-14] MEDS: ACETAMINOPHEN IV (For NPO) 1,000 MG in EMPTY BAG 1 BAG IVPB SCH ×2 (01:18→09:35)
[2019-02-14] MEDS ORDERED: 1: MVI, ADULT NO.4 WITH VIT K 10 ML, TRACE (CONC-1ML/DOSE) 1 ML, POTASSIUM ACETATE 20 ME IV SCH ×13 (06:00→15:00)
[2019-02-14 06:01] LABS: Glucose,Whole Blood 140 mg/dL (75-99)
[2019-02-14] MEDS: IPRATROPIUM-ALBUTEROL 3 ML NEB INHALATION SCH ×3 (07:31→20:04)
[2019-02-14 07:52] LABS: Ionized Calcium 5.5 mg/dL (4.5-5.3)
[2019-02-14 08:37] LABS: Calcium 8.7 mg/dL (8.4-10.2); Magnesium 2.3 mg/dL (1.6-2.3); Potassium 3.3 mmol/L (3.5-5.1)
[2019-02-14] MEDS ORDERED: FUROSEMIDE 10 MG/ML 10 ML VIAL IV STA (09:16)
[2019-02-14] MEDS: MORPHINE SULFATE 4 MG/ML SYRINGE IVP PRN ×3 (09:34→20:37)
--- NOTE | 2019-02-14 09:41 | P.PN ---
Subjective Principal diagnosis: Patient is seen in follow-up for acute kidney injury on chronic kidney disease. Renal function was getting worse therefore IV fluids were increased and creatinine has improved somewhat. She has developed new bilateral pleural effusion more on the right than the left. her urine output is documented at 100 mL but her colostomy output is 1500 mL and gastric drainage 150 mL She is on nasal cannula O2. She has NG tube suction as well as colostomy. Underwent exploratory laparotomy with sigmoid colectomy and end colostomy on 02/12/2019 . Admits to pain at the surgical site. Vital signs are stable. General: The patient appeared well nourished and normally developed. HEENT: Head exam is unremarkable. Neck is without jugular venous distension. NG tube present. LUNGS: Lungs are clear to auscultation and percussion. Breath sounds decreased. HEART: Rate and Rhythm are regular. First and second heart sounds normal. No murmurs, rubs or gallops. ABDOMEN: Bowel sounds present. Generalized tenderness. EXTREMITITES: No clubbing, cyanosis, or edema. Objective - Vital Signs Vital signs: Vital Signs Temp 98.1 F 02/14/19 04:00 Pulse 68 02/14/19 07:46 Resp 18 02/14/19 04:00 BP 122/60 02/14/19 04:00 Pulse Ox 93 L 02/14/19 04:00 Intake & Output 02/13/19 02/14/19 02/14/19 18:59 06:59 18:59 Intake Total 1350 640.833 Output Total 303 501 Balance 1047 139.833 Weight 68 kg 68.5 kg Intake: Intake, IV Titration 1350 640.833 Amount Dextrose 5%-0.45% NaCl 1, 1200 000 ml @ 75 mls/hr IV . [id number] [facility] Rx#:[id number] Mvi, Adult No.4 with Vit 640.833 K 10 ml Trace (Conc-1Ml/ Dose) 1 ml Potassium Acetate 20 meq Magnesium Sulfate gm 1 gm Calcium Gluconate 1 gm In Amino Acid 4.25%-D10w 1,000 ml @ 50 mls/hr IV .[id number] [facility] Rx#:[id number] cefTRIAXone 1 gm In 50 Sodium Chloride 0.9% 50 ml @ 100 mls/hr IVPB Q12HR [facility] Rx#:[id number] metroNIDAZOLE-NS PMX 500 100 mg In Saline 1 100ml.bag @ 100 mls/hr IVPB Q8H [facility] Rx#:[id number] Output: Drainage 300 Right 300 Urine 150 Straight 0 Stool 3 101 Oral Regurgitation 250 Other: Voiding Method Indwelling Catheter Indwelling Catheter An examination she is in pain. Has an NG tube. Has a colostomy No JVP neck is supple no facial asymmetry Lungs are significant for bilateral bronchial breath sounds at bases fair air entry bilaterally Heart sounds are unremarkable for any murmur rub gallop Abdomen soft but tender with a colostomy and the dressing Extremity exam was no edema Neurologically awake alert oriented but generalized weakness and in pain - Labs CBC & Chem 7: 02/13/19 22:30 02/14/19 07:23 Labs: Abnormal Lab Results - Last 24 Hours (Table) 02/13/19 02/13/19 02/14/19 Range/Units 22:30 22:30 00:30 WBC 15.6 H (3.8-10.6) k/uL RBC 3.63 L (3.80-5.40) m/uL Hgb 10.6 L (11.4-16.0) gm/dL MCHC 29.9 L (31.0-37.0) g/dL Neutrophils # 13.0 H (1.3-7.7) k/uL Monocytes # 1.1 H (0-1.0) k/uL Potassium 3.4 L (3.5-5.1) mmol/L Chloride 110 H (98-107) mmol/L BUN 33 H (7-17) mg/dL Creatinine 2.30 H (0.52-1.04) mg/dL Glucose 132 H (74-99) mg/dL POC Glucose (mg/dL) 114 H (75-99) mg/dL Ionized Calcium Bianka (4.5-5.3) mg/dL 02/14/19 02/14/19 Range/Units 06:00 07:23 WBC (3.8-10.6) k/uL RBC (3.80-5.40) m/uL Hgb (11.4-16.0) gm/dL MCHC (31.0-37.0) g/dL Neutrophils # (1.3-7.7) k/uL Monocytes # (0-1.0) k/uL Potassium 3.3 L (3.5-5.1) mmol/L Chloride 112 H (98-107) mmol/L BUN 34 H (7-17) mg/dL Creatinine 2.19 H (0.52-1.04) mg/dL Glucose 143 H (74-99) mg/dL POC Glucose (mg/dL) 140 H (75-99) mg/dL Ionized Calcium Bianka 5.5 H (4.5-5.3) mg/dL Microbiology - Last 24 Hours (Table) 02/07/19 20:55 Blood Culture - Final Blood No Growth after 144 hours Assessment and Plan Assessment: Assessment: 1. Acute kidney injury mostly prerenal improved with IV hydration. Renal function improved from 2.4 to to 1.84 and then went up to 2.3 and a slightly better at 2.19 this morning. This was secondary to increase IV fluids. She did double her bilateral effusions oh base and chest x-ray yesterday dated 02/13/2019 and this was not seen on 02/11/2019 2. Chronic kidney disease stage IV with baseline creatinine near 2 secondary to nephrosclerosis and left renal atrophy. 3. Abdominal pain. Possibly diverticulitis with colonic obstruction. Surgery following. Currently has an NG tube. S/p exp lap with sigmoid colectomy and end colostomy 02/12/19 . 4. Neurogenic bladder. Patient performs self catheterizations 4-5 times daily. Now has Murphy. 5. Metabolic alkalosis secondary to hydration ion losses from NG output.Bicarb is 25 stable 6. Hypertension with chronic kidney disease. 7. UTI with urine culture positive for Klebsiella and E. coli maintained on antibiotics. 8. Hypernatremia secondary to lack of oral water intake.Improved to 142 9. A-fib s/p heparin drip. Cardiology following. Plan: had reduced the IV fluid last night to 75 an hour because of TPN being started. On further go ahead and discontinue the IV normal saline as she will be maintained on TPN Because of the bilateral effusions I will defer to the embossing press operator apprentice regarding possibility of tapping it or trying Lasix. Maintain strict I's and O's and ensure she is not intravascularly volume depleted with Lasix if that is use to reduce her pleural effusion Continue to monitor renal function and urine output.
--- NOTE | 2019-02-14 10:18 | P.PN ---
Subjective Progress Note Date: 02/14/19 Principal diagnosis: Patient is seen in follow-up for acute kidney injury secondary to prerenal, and chronic kidney disease stage IV secondary to nephrosclerosis with solitary kidn ey, also neurogenic bladder with self-catheterization as an outpatient, nephrectomy on the right side remote. Renal function was getting worse therefore IV fluids were increased and he is on half-normal saline at 150 an hour. His creatinine was 2.4 to admission improved to 1.84 on 02/12/2019 and then went up to 2.3 as of yesterday. This morning is down to 2.19 with more hydration. Currently has an NG tube. Underwent exploratory laparotomy with sigmoid colectomy and end colostomy 02/12/19, secondary to adhesions. Urine output is 1200 mL but his drainage from colostomy is 1500 Vital signs are stable. General: The patient appeared well nourished and normally developed. HEENT: Head exam is unremarkable. Neck is without jugular venous distension. NG tube present. LUNGS: Lungs are clear to auscultation and percussion. Breath sounds decreased. HEART: Rate and Rhythm are regular. First and second heart sounds normal. No murmurs, rubs or gallops. ABDOMEN: Bowel sounds present. Generalized tenderness. EXTREMITITES: No clubbing, cyanosis, or edema. Objective - Vital Signs Vital signs: Vital Signs Temp 98.1 F 02/14/19 04:00 Pulse 68 02/14/19 07:46 Resp 18 02/14/19 04:00 BP 122/60 02/14/19 04:00 Pulse Ox 93 L 02/14/19 04:00 Intake & Output 02/13/19 02/14/19 02/14/19 18:59 06:59 18:59 Intake Total 1350 640.833 Output Total 303 501 Balance 1047 139.833 Weight 68 kg 68.5 kg Intake: Intake, IV Titration 1350 640.833 Amount Dextrose 5%-0.45% NaCl 1, 1200 000 ml @ 75 mls/hr IV . [id number] [facility] Rx#:[id number] Mvi, Adult No.4 with Vit 640.833 K 10 ml Trace (Conc-1Ml/ Dose) 1 ml Potassium Acetate 20 meq Magnesium Sulfate gm 1 gm Calcium Gluconate 1 gm In Amino Acid 4.25%-D10w 1,000 ml @ 50 mls/hr IV .[id number] [facility] Rx#:[id number] cefTRIAXone 1 gm In 50 Sodium Chloride 0.9% 50 ml @ 100 mls/hr IVPB Q12HR [facility] Rx#:[id number] metroNIDAZOLE-NS PMX 500 100 mg In Saline 1 100ml.bag @ 100 mls/hr IVPB Q8H [facility] Rx#:[id number] Output: Drainage 300 Right 300 Urine 150 Straight 0 Stool 3 101 Oral Regurgitation 250 Other: Voiding Method Indwelling Catheter Indwelling Catheter - Labs CBC & Chem 7: 02/13/19 22:30 02/14/19 07:23 Labs: Abnormal Lab Results - Last 24 Hours (Table) 02/13/19 02/13/19 02/14/19 Range/Units 22:30 22:30 00:30 WBC 15.6 H (3.8-10.6) k/uL RBC 3.63 L (3.80-5.40) m/uL Hgb 10.6 L (11.4-16.0) gm/dL MCHC 29.9 L (31.0-37.0) g/dL Neutrophils # 13.0 H (1.3-7.7) k/uL Monocytes # 1.1 H (0-1.0) k/uL Potassium 3.4 L (3.5-5.1) mmol/L Chloride 110 H (98-107) mmol/L BUN 33 H (7-17) mg/dL Creatinine 2.30 H (0.52-1.04) mg/dL Glucose 132 H (74-99) mg/dL POC Glucose (mg/dL) 114 H (75-99) mg/dL Ionized Calcium Bianka (4.5-5.3) mg/dL 02/14/19 02/14/19 Range/Units 06:00 07:23 WBC (3.8-10.6) k/uL RBC (3.80-5.40) m/uL Hgb (11.4-16.0) gm/dL MCHC (31.0-37.0) g/dL Neutrophils # (1.3-7.7) k/uL Monocytes # (0-1.0) k/uL Potassium 3.3 L (3.5-5.1) mmol/L Chloride 112 H (98-107) mmol/L BUN 34 H (7-17) mg/dL Creatinine 2.19 H (0.52-1.04) mg/dL Glucose 143 H (74-99) mg/dL POC Glucose (mg/dL) 140 H (75-99) mg/dL Ionized Calcium Bianka 5.5 H (4.5-5.3) mg/dL Microbiology - Last 24 Hours (Table) 02/07/19 20:55 Blood Culture - Final Blood No Growth after 144 hours Assessment and Plan Assessment: Assessment: 1. Acute kidney injury mostly prerenal improved with IV hydration. Renal function little worse today due to hemodynamics, NG output. Cr 2.2 today. 2. Chronic kidney disease stage IV with baseline creatinine near 2 secondary to nephrosclerosis and left renal atrophy. 3. Abdominal pain. Possibly diverticulitis with colonic obstruction. Surgery following. Currently has an NG tube. S/p exp lap with sigmoid colectomy and end colostomy 02/12/19 . 4. Neurogenic bladder. Patient performs self catheterizations 4-5 times daily. Now has Murphy. 5. Metabolic alkalosis secondary to hydration ion losses from NG output. 6. Hypertension with chronic kidney disease. 7. UTI with urine culture positive for Klebsiella and E. coli maintained on antibiotics. 8. Hypernatremia secondary to lack of oral water intake. 9. A-fib s/p heparin drip. Cardiology following. Plan: Increase rate of D5 half-normal saline to 150 mL an hour - if sodium level rises further, will change fluids to D5W. Avoid nephrotoxins. Continue to monitor renal function and urine output.
--- NOTE | 2019-02-14 11:00 | US ---
EXAMINATION TYPE: US chest DATE OF EXAM: 02/14/2019 COMPARISON: NONE CLINICAL HISTORY: With markings for possible thoracentesis. SOB, effusions TECHNIQUE: Targeted ultrasound of the posterior lower Bilateral EXAM MEASUREMENTS: Right Pleural Effusion pocket size: 4.0 cm, mixed pocket with more solid then fluid Left Pleural Effusion pocket size: 4.4 cm, mixed pocket here also with solid components not desirabl e to tap. *elderly female with difficulty sitting up Right side NOT marked. Left side NOT marked. Pulmonologists are able to review the images in the patient?s EMR. IMPRESSIONS: TINY, BILATERAL PLEURAL EFFUSIONS.
--- NOTE | 2019-02-14 11:33 | P.PN ---
Progress Note - Text Progress Note Date: 02/14/19 the patient is complaining of throat pain from her nasogastric tube. She has some limited output through her colostomy. She's had scant output through her NG tube. On exam her vital signs are stable. Her abdomen soft. Incision sites clean and intact. Colostomy is pink with some brown stool within the colostomy appliance. Status post Fahad procedure patient will have her nasogastric tube removed today. We'll place her on ice chips.
[2019-02-14] MEDS: POTASSIUM CHLORIDE 10 MEQ in WATER FOR INJECTION 1 100ML.BAG IVPB SCH ×6 (11:39→22:44)
[2019-02-14] MEDS: BISACODYL 10 MG SUPP RECTAL SCH (11:47)
[2019-02-14] MEDS: LACTULOSE 20 GM/30 ML CUP PO SCH (11:47)
[2019-02-14 11:58] LABS: Glucose,Whole Blood 162 mg/dL (75-99)
--- NOTE | 2019-02-14 13:09 | P.PN ---
Progress Note - Text Progress Note Date: 02/14/19 (colonic obstruction with stool and ulceration, duodenal mechanical obstruction with adhesion.) review the progress note date of service 02/14/[address] Engel. The patient today is awake alert and able to communicate, NG tube has been removed by the order of surgeon. Did see her today patient still does not feel well no clear output in the colostomy bag with the normal stoma. Patient still distended with the abdominal pain. Status post laparotomy exploratory. Vital sign temperature today is 90 8.8F oral, pulse rate is irregular irregularities with the atrial fibrillation and patient treated with Lopressor IV push every 6 hours her current rate 126 8/m and that she had pleural effusion and we hope that pulmonary can aspiration. My suggestion of the cardiology. Her blood pressure also 104/61 but prior to that was 140/63. Murphy associated with the atrial fibrillation. She is pulse ox is 91 on 4 L nasal cannula. Patient in a BX of and started with the atrial fibrillation she is on ceftriaxone with a history of UTI Klebsiella pneumonia as well as E. coli and she was on hydralazine however has not used because of the blood pressure has beenhydralazine when necessary. She is on TPN peripheral plus Intralipid by surgical team. on exam: Patient's conscious alert oriented still have abdominal pain, early function of the colon colostomy HEENT negative Neck was supple no JVD no thyromegaly. Chest she has bilateral pleural effusion probably associated with atrial fibrillation and volume expansion. Heart irregular irregularities with atrial fibrillation Abdomen soft tender status post exploratory laparotomy Extremities positive pulses and wearing the of thrombotic inflatable, and they started her on requests today by cardiology. Assessment and plan Progressive improvement post operative followed by nephrology seen by Dr. rob nephrology, pulmonary and critical following with the possibility of addressing the pleural effusion and if any intention of thoracentesis. Cardiology is following with the patient have atrial fibrillation and rapid ventricular response started on Lopressor IV. Blood pressure dropping and will be monitoring and discontinuation medication if continue to drop i.e. clonidine patch. And hydralazine IV push may not be needed.
--- NOTE | 2019-02-14 13:36 | P.PN ---
Subjective This is a pleasant 83-year-old female past medical history significant for hypertension, dyslipidemia, chronic kidney disease who presented to the hospital with abdominal pain and was found to have a bowel obstruction. She underwent exploratory laparotomy and colostomy with Dr. Sahu. She is seen and examined in bed laying flat. She complains of significant abdominal discomfort and shortness of breath. She denies chest pain, dizziness or palpitations. NG tube was removed this morning per Dr. Rodarte. Telemetry tracings reveal sinus tachycardia. Chest x-ray obtained last night reveals moderate-sized bilateral pleural effusions, right greater than left. Ultrasound of the chest revealed a right pleural effusion pocket size of 4 cm and the left pleural effusion pocket size of 4.4 cm. Laboratory data reviewed, sodium 142, potassium 3.3, creatinine 2.19 and magnesium 2.3. Blood pressure 104/61 heart rate 78 afebrile maintaining oxygen saturation on nasal cannula. GENERAL: Well-appearing, well-nourished and in no acute distress. NECK: Supple without JVD or thyromegaly. LUNGS: Diminished bilaterally, bibasilar rales, no wheezes or rhonchi. Respiration equal and unlabored. HEART: Regular rate and rhythm with diastolic murmur at the base, no rubs or gallops. S1 and S2 heard. EXTREMITIES: Normal range of motion, no edema. No clubbing or cyanosis. Peripheral pulses intact. ASSESSMENT Paroxysmal atrial fibrillation, currently maintaining sinus mechanism. Acute on chronic diastolic heart failure Abdominal pain status post exploratory laparotomy, lysis of adhesions, colectomy and end colostomy creation Leukocytosis Hypokalemia Hypertension Dyslipidemia Chronic kidney disease PLAN Give 1 dose of IV Lasix now. Replace potassium per protocol. Repeat renal function and electrolytes in the morning. Initiate Eliquis 2.5 mg twice a day when appropriate per surgery and patient is tolerating oral. Further recommendations to follow based upon clinical course. Nurse Practitioner note has been reviewed, I agree with a documented findings and plan of care. Patient was seen and examined. Objective - Vital Signs Vital signs: Vital Signs Temp 98.8 F 02/14/19 08:05 Pulse 78 02/14/19 12:59 Resp 18 02/14/19 11:35 BP 104/61 02/14/19 11:35 Pulse Ox 91 L 02/14/19 11:35 Intake & Output 02/13/19 02/14/1902/14/19 18:59 06:59 18:59 Intake Total 1350 640.833 Output Total 303 501 Balance 1047 139.833 Weight 68 kg 68.5 kg Intake: Intake, IV Titration 1350 640.833 Amount Dextrose 5%-0.45% NaCl 1, 1200 000 ml @ 75 mls/hr IV . [id number] [facility] Rx#:[id number] Mvi, Adult No.4 with Vit 640.833 K 10 ml Trace (Conc-1Ml/ Dose) 1 ml Potassium Acetate 20 meq Magnesium Sulfate gm 1 gm Calcium Gluconate 1 gm In Amino Acid 4.25%-D10w 1,000 ml @ 50 mls/hr IV .[id number] [facility] Rx#:[id number] cefTRIAXone 1 gm In 50 Sodium Chloride 0.9% 50 ml @ 100 mls/hr IVPB Q12HR [facility] Rx#:[id number] metroNIDAZOLE-NS PMX 500 100 mg In Saline 1 100ml.bag @ 100 mls/hr IVPB Q8H [facility] Rx#:[id number] Output: Drainage 300 Right 300 Urine 150 Straight 0 Stool 3 101 Oral Regurgitation 250 Other: Voiding Method Indwelling Catheter Indwelling Catheter - Labs CBC & Chem 7: 02/13/19 22:30 02/14/19 07:23 Labs: Abnormal Lab Results - Last 24 Hours (Table) 02/13/19 02/13/19 02/14/19 Range/Units 22:30 22:30 00:30 WBC 15.6 H (3.8-10.6) k/uL RBC 3.63 L (3.80-5.40) m/uL Hgb 10.6 L (11.4-16.0) gm/dL MCHC 29.9 L (31.0-37.0) g/dL Neutrophils # 13.0 H (1.3-7.7) k/uL Monocytes # 1.1 H (0-1.0) k/uL Potassium 3.4 L (3.5-5.1) mmol/L Chloride 110 H (98-107) mmol/L BUN 33 H (7-17) mg/dL Creatinine 2.30 H (0.52-1.04) mg/dL Glucose 132 H (74-99) mg/dL POC Glucose (mg/dL) 114 H (75-99) mg/dL Ionized Calcium Bianka (4.5-5.3) mg/dL 02/14/19 02/14/19 02/14/19 Range/Units 06:00 07:23 11:55 WBC (3.8-10.6) k/uL RBC (3.80-5.40) m/uL Hgb (11.4-16.0) gm/dL MCHC (31.0-37.0) g/dL Neutrophils # (1.3-7.7) k/uL Monocytes # (0-1.0) k/uL Potassium 3.3 L (3.5-5.1) mmol/L Chloride 112 H (98-107) mmol/L BUN 34 H (7-17) mg/dL Creatinine 2.19 H (0.52-1.04) mg/dL Glucose 143 H (74-99) mg/dL POC Glucose (mg/dL) 140 H 162 H (75-99) mg/dL Ionized Calcium Bianka 5.5 H (4.5-5.3) mg/dL Microbiology - Last 24 Hours (Table) 02/07/19 20:55 Blood Culture - Final Blood No Growth after 144 hours
[2019-02-14] MEDS: METOPROLOL TARTRATE 25 MG TAB PO SCH ×2 (15:56→20:34)
--- NOTE | 2019-02-14 16:13 | P.PN ---
Subjective Progress Note Date: 02/14/19 This is a pleasant 83-year-old female patient admitted back on 02/07/2019 with complaints of constipation and abdominal discomfort. She had not moved her bowels for several days prior. Abdominal x-rays did show evidence of constipation. Fleet enema and MiraLAX at home were unsuccessful. She was subsequently admitted for abdominal bloating and discomfort. She was found to have a colon obstruction and yesterday had undergone exposure laparotomy, extensive lysis of adhesions, sigmoid colectomy, end colostomy done by Dr. Miller. She remained hypoxic postoperatively and was placed on BiPAP with an FiO2 of 80%. We're consulted for the same. No chest x-ray was done. She is seen today on the selective care unit. She is currently awake and alert in no acute distress. She is having some ongoing abdominal discomfort. She has a midline incision with maggy intact and a colostomy with stool present. She is currently on 6 L high flow nasal cannula and maintaining O2 saturation in the mid 90s. She denies any worsening shortness of breath, cough or congestion. Urine culture was positive for Klebsiella pneumoniae and E coli. Blood cultures had revealed no growth. White count 12.8. Hemoglobin 11.6. Sodium 148. Potassium 3.9. Creatinine 2.20. She has D5.45 running at 100 ML's per hour. She is currently on ceftriaxone and Flagyl. PPN and lipids have been ordered. The patient was having issues with atrial fibrillation preoperatively and was initially on a heparin drip. The plan from cardiology is to initiate Eliquis once cleared surgically. On today's evaluation of 02/14/2019 I was asked even with this patient and the patient was found to be more lethargic and short of breath. I the patient did she is relatively comfortable on oxygen at 4 L. Nevertheless, she states that she wants to and she is unable to take this ongoing treatment any further. In terms of her cardiac condition, she is in atrial fibrillation with rapid ventricular response and a current heart rate is around 120-140. She has a Murphy catheter urine output is in order of 30 mL an hour. She had a chest x-ray that showed increased opacification of the lung bases. Ultrasound of the chest was done that showed small pockets and based on the ultrasound these markers were not and minimal 4 thoracentesis. She is on Diprivan running at the rate of 75 mL an hour. She is also on IV fluids running at 75 mL an hour of normal saline. The patient has a positive fluid balance of 1.1 L. She has a creatinine of 2.4 with a mean of 34. ABCDs not done this morning. She has a positive output and her colostomy bag. The surgical wound site is dry clean and intact. She is afebrile for now. Objective - Vital Signs Vital signs: Vital Signs Temp 98.8 F 02/14/19 08:05 Pulse 78 02/14/19 12:59 Resp 18 02/14/19 11:35 BP 104/61 02/14/19 11:35 Pulse Ox 91 L 02/14/19 11:35 Intake & Output 02/13/19 02/14/19 02/14/19 18:59 06:59 18:59 Intake Total 1350 640.833 Output Total 303 501 500 Balance 1047 139.833 -500 Weight 68 kg 68.5 kg Intake: Intake, IV Titration 1350 640.833 Amount Dextrose 5%-0.45% NaCl 1, 1200 000 ml @ 75 mls/hr IV . [id number] [facility] Rx#:[id number] Mvi, Adult No.4 with Vit 640.833 K 10 ml Trace (Conc-1Ml/ Dose) 1 ml Potassium Acetate 20 meq Magnesium Sulfate gm 1 gm Calcium Gluconate 1 gm In Amino Acid 4.25%-D10w 1,000 ml @ 50 mls/hr IV .[id number] [facility] Rx#:[id number] cefTRIAXone 1 gm In 50 Sodium Chloride 0.9% 50 ml @ 100 mls/hr IVPB Q12HR [facility] Rx#:[id number] metroNIDAZOLE-NS PMX 500 100 mg In Saline 1 100ml.bag @ 100 mls/hr IVPB Q8H [facility] Rx#:[id number] Output: Drainage 300 Right 300 Urine 150 400 Straight 0 0 Stool 3 101 100 Oral Regurgitation 250 Other: Voiding Method Indwelling Catheter Indwelling Catheter Indwelling Catheter - Exam GENERAL EXAM: Alert, pleasant 83-year-old female patient, on 4 L high flow nasal cannula, comfortable in no apparent distress. HEAD: Normocephalic. EYES: Normal reaction of pupils, equal size. NOSE: Nasogastric tube secured in place. Clear with pink turbinates. THROAT: No erythema or exudates. NECK: No masses, no JVD. CHEST: No chest wall deformity. LUNGS: Equal air entry with no crackles, wheeze, rhonchi or dullness. CVS: S1 and S2 normal with no audible murmur, regular rhythm. ABDOMEN: Midline incision with maggy intact, colostomy functioning. SPINE: No scoliosis or deformity SKIN: No rashes CENTRAL NERVOUS SYSTEM: No focal deficits, tone is normal in all 4 extremities. EXTREMITIES: There is no peripheral edema. No clubbing, no cyanosis. Peripheral pulses are intact. - Labs CBC & Chem 7: 02/13/19 22:30 02/14/19 07:23 Labs: Abnormal Lab Results - Last 24 Hours (Table) 02/13/19 02/13/19 02/14/19 Range/Units 22:30 22:30 00:30 WBC 15.6 H (3.8-10.6) k/uL RBC 3.63 L (3.80-5.40) m/uL Hgb 10.6 L (11.4-16.0) gm/dL MCHC 29.9 L (31.0-37.0) g/dL Neutrophils # 13.0 H (1.3-7.7) k/uL Monocytes # 1.1 H (0-1.0) k/uL Potassium 3.4 L (3.5-5.1) mmol/L Chloride 110 H (98-107) mmol/L BUN 33 H (7-17) mg/dL Creatinine 2.30 H (0.52-1.04) mg/dL Glucose 132 H (74-99) mg/dL POC Glucose (mg/dL) 114 H (75-99) mg/dL Ionized Calcium Bianka (4.5-5.3) mg/dL 02/14/19 02/14/19 02/14/19 Range/Units 06:00 07:23 11:55 WBC (3.8-10.6) k/uL RBC (3.80-5.40) m/uL Hgb (11.4-16.0) gm/dL MCHC (31.0-37.0) g/dL Neutrophils # (1.3-7.7) k/uL Monocytes # (0-1.0) k/uL Potassium 3.3 L (3.5-5.1) mmol/L Chloride 112 H (98-107) mmol/L BUN 34 H (7-17) mg/dL Creatinine 2.19 H (0.52-1.04) mg/dL Glucose 143 H (74-99) mg/dL POC Glucose (mg/dL) 140 H 162 H (75-99) mg/dL Ionized Calcium Bianka 5.5 H (4.5-5.3) mg/dL Microbiology - Last 24 Hours (Table) 02/07/19 20:55 Blood Culture - Final Blood No Growth after 144 hours Assessment and Plan Plan: 1 Abdominal discomfort with constipation and colon obstruction status post 6 po sterior laparotomy, extensive lysis of adhesions, sigmoid colectomy, end colostomy. Postoperative day #2 2 Acute hypoxic respiratory failure in the immediate postoperative period requiring BiPAP support. Currently on 4 L high flow nasal cannula. Chest x-ray revealed opacity in the lung bases probably combination of atelectasis and small effusions. 3 Atrial fibrillation with a rapid ventricular 4 Urinary tract infection secondary to Klebsiella pneumoniae and E. coli 5 Lifelong nonsmoker. 6 Hypertension. 7 Hyperlipidemia. 8 Acute on chronic renal failure. Current creatinine 2.1 9 hyponatremia, recovered Plan Put the patient on Cardizem drip for rate control. Continue Eliquis for anticoagulation Proceed with IV Lasix Noncontrast CAT scan of the chest Keep oxygen at 4 L We'll continue to follow. Obtain CBC. Obtain blood work and electrolytes in a.m. Keep the Murphy catheter in place. Monitor urine output.
[2019-02-14] MEDS: DILTIAZEM 125 MG in SODIUM CHLORIDE 0.9% 100 ML IV SCH (17:16)
--- NOTE | 2019-02-14 17:39 | CT ---
EXAMINATION TYPE: CT chest wo con DATE OF EXAM: 02/14/2019 COMPARISON: CT 02/07/2019. An ultrasound 02/14/2019 HISTORY: Hypoxemia. CT DLP: 335.6 mGycm. Automated Exposure Control for Dose Reduction was Utilized. TECHNIQUE: CT scan of the thorax is performed without IV contrast. FINDINGS: Lack of intravenous contrast could compromise sensitivity. LUNGS: There is been interval development of increase in consolidation with air bronchograms at the l raisa bases. Small pleural effusions are confirmed. MEDIASTINUM: Lack of IV contrast is noted to limit evaluation for mediastinal and especially hilar ad enopathy. There are no definitive greater than 1 cm hilar or mediastinal lymph nodes. No cardiomega ly or pericardial effusion is seen. There are coronary calcifications. Pulmonary artery is prominent, correlate for pulmonary artery hypertension ascending aorta is aneurysmal at 4.4 cm, no pericardial effusion. Innominate artery is tortuous. OTHER: The gallbladder is hydropic and there are some dilated intrahepatic biliary ducts, some depend ent hyperdensity within the gallbladder is suspected . IMPRESSION: There may be worsening bilateral lower lobe pneumonias. Hydropic gallbladder with dilated intrahepatic ducts, consider gastroenterology or surgical consult. Noncontrast exam. Small pleural e ffusions. Aortic aneurysm. Coronary artery disease.
[2019-02-14 18:29] LABS: Glucose,Whole Blood 145 mg/dL (75-99)
[2019-02-14] MEDS: ATORVASTATIN 10 MG TAB PO SCH ×2 (20:33→20:38)
[2019-02-14] MEDS: DULoxetine HCL 60 MG CAPSULE.DR PO SCH (20:33)
[2019-02-14] MEDS: APIXABAN 2.5 MG TABLET PO SCH (20:34)
[2019-02-14] MEDS: 1: MVI, ADULT NO.4 WITH VIT K 10 ML, TRACE (CONC-1ML/DOSE) 1 ML, POTASSIUM ACETATE 20 ME IV SCH ×7 (22:45)
[2019-02-14 23:54] LABS: Glucose,Whole Blood 139 mg/dL (75-99)
[2019-02-15] MEDS: INSULIN ASPART (NovoLOG) 100 UNIT/ML VIAL SQ SCH ×5 (00:18→23:51)
[2019-02-15] MEDS: MORPHINE SULFATE 4 MG/ML SYRINGE IVP PRN ×2 (00:19→12:21)
[2019-02-15 03:09] LABS: Calcium 8.7 mg/dL (8.4-10.2); Magnesium 2.3 mg/dL (1.6-2.3); Phosphorus 2.1 mg/dL (2.5-4.5); Potassium 3.7 mmol/L (3.5-5.1)
[2019-02-15] MEDS: DILTIAZEM 125 MG in SODIUM CHLORIDE 0.9% 100 ML IV SCH (05:07)
[2019-02-15] MEDS: metroNIDAZOLE-NS PMX 500 MG in SALINE 1 100ML.BAG IVPB SCH (05:08)
[2019-02-15] MEDS: ACETAMINOPHEN TAB 500 MG TAB PO PRN ×2 (05:26→14:28)
[2019-02-15 06:03] LABS: Glucose,Whole Blood 172 mg/dL (75-99)
[2019-02-15] MEDS: IPRATROPIUM-ALBUTEROL 3 ML NEB INHALATION SCH ×3 (07:40→20:55)
[2019-02-15 08:14] LABS: Glucose,Whole Blood 137 mg/dL (75-99)
[2019-02-15 08:42] LABS: Basophils # (A) 0.1 k/uL (0-0.2); Basophils % (A) 1 %; Eosinophils # (A) 0.5 k/uL (0-0.7); Eosinophils % (A) 3 %; HCT 32.5 % (34.0-46.0); HGB 10.3 gm/dL (11.4-16.0); Hypochromasia Moderate; Lymphocytes # (A) 1.5 k/uL (1.0-4.8); Lymphocytes % (A) 8 %; MCH 30.6 pg (25.0-35.0); MCHC 31.8 g/dL (31.0-37.0); MCV 96.1 fL (80.0-100.0); Mean Platelet Volume 7.9; Monocytes % (A) 6 %; Neutrophils # (A) 14.8 k/uL (1.3-7.7); Neutrophils % (A) 82 %; Platelet Count 267 k/uL (150-450); RBC 3.38 m/uL (3.80-5.40); RDW 14.3 % (11.5-15.5); WBC 18.1 k/uL (3.8-10.6)
[2019-02-15 09:01] LABS: Albumin 2.4 g/dL (3.5-5.0); Calcium 8.8 mg/dL (8.4-10.2); Potassium 3.7 mmol/L (3.5-5.1); Total Bilirubin 0.4 mg/dL (0.2-1.3); Total Protein 4.9 g/dL (6.3-8.2)
[2019-02-15 09:26] LABS: Magnesium 2.3 mg/dL (1.6-2.3); Phosphorus 2.2 mg/dL (2.5-4.5)
[2019-02-15] MEDS ORDERED: Phosphorus Replacement Protoco 1 EACH MISC MISCELLANE PRN (09:43)
--- NOTE | 2019-02-15 09:55 | P.PN ---
Subjective Progress Note Date: 02/15/19 This is a pleasant 83-year-old female patient admitted back on 02/07/2019 with complaints of constipation and abdominal discomfort. She had not moved her bowels for several days prior. Abdominal x-rays did show evidence of constipation. Fleet enema and MiraLAX at home were unsuccessful. She was subsequently admitted for abdominal bloating and discomfort. She was found to have a colon obstruction and yesterday had undergone exposure laparotomy, extensive lysis of adhesions, sigmoid colectomy, end colostomy done by Dr. Miller. She remained hypoxic postoperatively and was placed on BiPAP with an FiO2 of 80%. We're consulted for the same. No chest x-ray was done. She is seen today on the selective care unit. She is currently awake and alert in no acute distress. She is having some ongoing abdominal discomfort. She has a midline incision with maggy intact and a colostomy with stool present. She is currently on 6 L high flow nasal cannula and maintaining O2 saturation in the mid 90s. She denies any worsening shortness of breath, cough or congestion. Urine culture was positive for Klebsiella pneumoniae and E coli. Blood cultures had revealed no growth. White count 12.8. Hemoglobin 11.6. Sodium 148. Potassium 3.9. Creatinine 2.20. She has D5.45 running at 100 ML's per hour. She is currently on ceftriaxone and Flagyl. PPN and lipids have been ordered. The patient was having issues with atrial fibrillation preoperatively and was initially on a heparin drip. The plan from cardiology is to initiate Eliquis once cleared surgically. On today's evaluation of 02/14/2019 I was asked even with this patient and the patient was found to be more lethargic and short of breath. I the patient did she is relatively comfortable on oxygen at 4 L. Nevertheless, she states that she wants to and she is unable to take this ongoing treatment any further. In terms of her cardiac condition, she is in atrial fibrillation with rapid ventricular response and a current heart rate is around 120-140. She has a Murphy catheter urine output is in order of 30 mL an hour. She had a chest x-ray that showed increased opacification of the lung bases. Ultrasound of the chest was done that showed small pockets and based on the ultrasound these markers were not and minimal 4 thoracentesis. She is on Diprivan running at the rate of 75 mL an hour. She is also on IV fluids running at 75 mL an hour of normal saline. The patient has a positive fluid balance of 1.1 L. She has a creatinine of 2.4 with a mean of 34. ABCDs not done this morning. She has a positive output and her colostomy bag. The surgical wound site is dry clean and intact. She is afebrile for now. on 02/16/2016, the patient is transferred to the intensive care unit. The shoaib toribio's oxygen requirements went up yesterday and she is currently on15 L of oxygen by nasal cannula. I opted to bring her down to the ICU. The ultrasound of the chest was not conclusive in terms of fluid and based on that I ordered a CAT scan of the chest that was done without contrast and the CAT scan showed worsening atelectatic changes in lung bases, pneumonia cannot be completely excluded. The pleural effusions were very tiny and there were not and the blood for thoracentesis. Based on that, no intervention was done. Currently she is awake and alert. She is on a combination of IV Rocephin and Flagyl.er white cell count came up to 18. Her creatinine is up to 2.1. Creatinine is stable for now. The lactic acid level was low at 1. She is awake. She is alert. The colostomy is functioning and she has adequate output at this point in time.The patient still on TPN and were going to initiate someclear liquid diet today. Objective - Vital Signs Vital signs: Vital Signs Temp 98.4 F 02/15/19 06:58 Pulse 92 02/15/19 07:59 Resp 20 02/15/19 05:40 BP 115/70 02/15/19 05:40 Pulse Ox 92 L 02/15/19 05:40 Intake & Output 02/14/19 02/15/19 02/15/19 18:59 06:59 18:59 Intake Total 7.417 103.667 Output Total 600 1900 Balance -592.583 -1796.333 Weight 73 kg Intake: Intake, IV Titration 7.417 103.667 Amount Diltiazem 125 mg In 7.417 103.667 Sodium Chloride 0.9% 100 ml @ 5 MG/HR 5 mls/hr IV .Q24H [facility] Rx#:[id number] Output: Urine 400 1800 Straight 0 0 Stool 200 100 Other: Voiding Method Indwelling Catheter Indwelling Catheter - Exam GENERAL EXAM: Alert, pleasant 83-year-old female patient, on 4 L high flow nasal cannula, comfortable in no apparent distress. HEAD: Normocephalic. EYES: Normal reaction of pupils, equal size. NOSE: Nasogastric tube secured in place. Clear with pink turbinates. THROAT: No erythema or exudates. NECK: No masses, no JVD. CHEST: No chest wall deformity. LUNGS: Equal air entry with no crackles, wheeze, rhonchi or dullness. CVS: S1 and S2 normal with no audible murmur, regular rhythm. ABDOMEN: Midline incision with maggy intact, colostomy functioning. SPINE: No scoliosis or deformity SKIN: No rashes CENTRAL NERVOUS SYSTEM: No focal deficits, tone is normal in all 4 extremities. EXTREMITIES: There is no peripheral edema. No clubbing, no cyanosis. Peripheral pulses are intact. - Labs CBC & Chem 7: 02/15/19 08:22 02/15/19 08:22 Labs: Abnormal Lab Results - Last 24 Hours (Table) 02/14/19 02/14/19 02/14/19 Range/Units 11:55 18:26 23:53 WBC (3.8-10.6) k/uL RBC (3.80-5.40) m/uL Hgb (11.4-16.0) gm/dL Hct (34.0-46.0) % Neutrophils # (1.3-7.7) k/uL Chloride (98-107) mmol/L BUN (7-17) mg/dL Creatinine (0.52-1.04) mg/dL Glucose (74-99) mg/dL POC Glucose (mg/dL) 162 H 145 H 139 H (75-99) mg/dL Phosphorus (2.5-4.5) mg/dL Total Protein (6.3-8.2) g/dL Albumin (3.5-5.0) g/dL 02/15/19 02/15/19 02/15/19 Range/Units 02:46 06:01 08:12 WBC (3.8-10.6) k/uL RBC (3.80-5.40) m/uL Hgb (11.4-16.0) gm/dL Hct (34.0-46.0) % Neutrophils # (1.3-7.7) k/uL Chloride (98-107) mmol/L BUN 34 H (7-17) mg/dL Creatinine 2.16 H (0.52-1.04) mg/dL Glucose 147 H (74-99) mg/dL POC Glucose (mg/dL) 172 H 137 H (75-99) mg/dL Phosphorus 2.1 L (2.5-4.5) mg/dL Total Protein (6.3-8.2) g/dL Albumin (3.5-5.0) g/dL 02/15/19 02/15/19 02/15/19 Range/Units 08:22 08:22 08:22 WBC 18.1 H (3.8-10.6) k/uL RBC 3.38 L (3.80-5.40) m/uL Hgb 10.3 L (11.4-16.0) gm/dL Hct 32.5 L (34.0-46.0) % Neutrophils # 14.8 H (1.3-7.7) k/uL Chloride 108 H (98-107) mmol/L BUN 35 H (7-17) mg/dL Creatinine 2.18 H (0.52-1.04) mg/dL Glucose 146 H (74-99) mg/dL POC Glucose (mg/dL) (75-99) mg/dL Phosphorus 2.2 L (2.5-4.5) mg/dL Total Protein 4.9 L (6.3-8.2) g/dL Albumin 2.4 L (3.5-5.0) g/dL Assessment and Plan Plan: 1 Abdominal discomfort with constipation and colon obstruction status post 6 posterior laparotomy, extensive lysis of adhesions, sigmoid colectomy, end colostomy. Postoperative day #3. The patient is on TPN for nutritional support. We'll initiate some clear liquid diet. NG tube was removed. 2 Acute hypoxic respiratory failure in the immediate postoperative period requiring BiPAP support. the patient is currently off BiPAP. The patient is on high flow oxygen at 15 L. She has atelectatic changes in lung bases and small effusions. Pneumonia is doubtful cannot be completely excluded. 3 Atrial fibrillation with a rapid ventricular 4 Urinary tract infection secondary to Klebsiella pneumoniae and E. coli 5 Lifelong nonsmoker. 6 Hypertension. 7 Hyperlipidemia. 8 Acute on chronic renal failure. Current creatinine 2.1 9 hyponatremia, recovered Plan Check a procalcitonin level switch the patient to IV Zosyn and discontinue the Rocephin and Flagyl Continue the Cardizem drip for rate control Continue oral anticoagulation with Eliquis Allow clear liquid diet She is taking PPN for now and this will be continued CAT scan of the chest was noted Deep breathing and pulmonary toileting and incentive spirometer will continue to follow
[2019-02-15] MEDS ORDERED: POTASSIUM BICARBONATE/CIT AC 20 MEQ TABLET.EFF NG-TUBE SCH (10:00)
--- NOTE | 2019-02-15 10:08 | P.PN ---
Subjective Progress Note Date: 02/15/19 Principal diagnosis: Patient is seen in follow-up for acute kidney injury secondary to prerenal, and chronic kidney disease stage IV secondary to nephrosclerosis with an atrophic/s olitary kidney,'s mild right hydronephrosis on computed tomography scan likely secondary to neurogenic bladder with self-catheterization as an outpatient, nephrectomy on the right side remote. She had expiratory labs and sigmoid colectomy and end colostomy on 02/12/2019 because of partial bowel obstruction secondary to adhesions. Renal function was getting worse, creatinine on admission was 2.4 to improved to 1.84 as of 02/12/2019, worsened to 2.3 dated 02/13/2019. therefore IV fluids were increased on half-normal saline at 150 an hour, subsequently she was started on TPN on 02/14/2019 therefore IV fluids were decreased to 75 and discontinued on the morning of 02/14/2019. Because of worsening bilateral basal infiltrates a computed tomography scan dated 02/14/2019 shows atelectasis no effusion . this morning she had low-grade temperatures 100.6, blood pressure is 110/70. Urine output is down somewhat to 800 mL and 200 mL over the last 212 hour shifts Vital signs are stable. General: The patient appeared well nourished and normally developed. HEENT: Head exam is unremarkable. Neck is without jugular venous distension. NG tube present. LUNGS: Lungs are clear to auscultation and percussion. Breath sounds decreased. HEART: Rate and Rhythm are regular. First and second heart sounds normal. No murmurs, rubs or gallops. ABDOMEN: Bowel sounds present. Generalized tenderness. EXTREMITITES: No clubbing, cyanosis, or edema. Objective - Vital Signs Vital signs: Vital Signs Temp 98.4 F 02/15/19 06:58 Pulse 92 02/15/19 07:59 Resp 20 02/15/19 05:40 BP 115/70 02/15/19 05:40 Pulse Ox 92 L 02/15/19 05:40 Intake & Output 02/14/19 02/15/19 02/15/19 18:59 06:59 18:59 Intake Total 7.417 103.667 Output Total 600 1900 Balance -592.583 -1796.333 Weight 73 kg Intake: Intake, IV Titration 7.417 103.667 Amount Diltiazem 125 mg In 7.417 103.667 Sodium Chloride 0.9% 100 ml @ 5 MG/HR 5 mls/hr IV .Q24H [facility] Rx#:[id number] Output: Urine 400 1800 Straight 0 0 Stool 200 100 Other: Voiding Method Indwelling Catheter Indwelling Catheter On examination she is awake alert oriented HEENT exam no JVP neck is supple no facial asymmetry Lungs are significant for bilateral basal diminished air entry occasional coarse crackle Heart sounds unremarkable for any murmur rub gallop Abdomen is slightly tender midline scar is clean there is colostomy bag draining liquid stools Extremity exam was no edema Neurologically awake alert oriented - Labs CBC & Chem 7: 02/15/19 08:22 02/15/19 08:22 Labs: Abnormal Lab Results - Last 24 Hours (Table) 02/14/19 02/14/19 02/14/19 Range/Units 11:55 18:26 23:53 WBC (3.8-10.6) k/uL RBC (3.80-5.40) m/uL Hgb (11.4-16.0) gm/dL Hct (34.0-46.0) % Neutrophils # (1.3-7.7) k/uL Chloride (98-107) mmol/L BUN (7-17) mg/dL Creatinine (0.52-1.04) mg/dL Glucose (74-99) mg/dL POC Glucose (mg/dL) 162 H 145 H 139 H (75-99) mg/dL Phosphorus (2.5-4.5) mg/dL Total Protein (6.3-8.2) g/dL Albumin (3.5-5.0) g/dL 02/15/19 02/15/19 02/15/19 Range/Units 02:46 06:01 08:12 WBC (3.8-10.6) k/uL RBC (3.80-5.40) m/uL Hgb (11.4-16.0) gm/dL Hct (34.0-46.0) % Neutrophils # (1.3-7.7) k/uL Chloride (98-107) mmol/L BUN 34 H (7-17) mg/dL Creatinine 2.16 H (0.52-1.04) mg/dL Glucose 147 H (74-99) mg/dL POC Glucose (mg/dL) 172 H 137 H (75-99) mg/dL Phosphorus 2.1 L (2.5-4.5) mg/dL Total Protein (6.3-8.2) g/dL Albumin (3.5-5.0) g/dL 02/15/19 02/15/19 02/15/19 Range/Units 08:22 08:22 08:22 WBC 18.1 H (3.8-10.6) k/uL RBC 3.38 L (3.80-5.40) m/uL Hgb 10.3 L (11.4-16.0) gm/dL Hct 32.5 L (34.0-46.0) % Neutrophils # 14.8 H (1.3-7.7) k/uL Chloride 108 H (98-107) mmol/L BUN 35 H (7-17) mg/dL Creatinine 2.18 H (0.52-1.04) mg/dL Glucose 146 H (74-99) mg/dL POC Glucose (mg/dL) (75-99) mg/dL Phosphorus 2.2 L (2.5-4.5) mg/dL Total Protein 4.9 L (6.3-8.2) g/dL Albumin 2.4 L (3.5-5.0) g/dL Assessment and Plan Assessment: Assessment: 1. Acute kidney injury mostly prerenal secondary to small obstruction and status post laparotomy and sigmoid colectomy and end colostomy. Creatinine improved from 2.4 to admission to 1.84 and then curetted again to 2.3 on 02/13/2019. She is febrile and may be becoming septic again. She is on TPN. Creatinine has stabilized over the last 3 days at 2.1. Urine output is down today. She may be slightly volume depleted because of colostomy output in addition to her prerenal state from fever 2. Chronic kidney disease stage IV with baseline creatinine near 2 secondary to nephrosclerosis and left renal atrophy. 3. Abdominal pain. Possibly diverticulitis with colonic obstruction. Surgery following. Currently has an NG tube. S/p exp lap with sigmoid colectomy and end colostomy 02/12/19 . 4. Neurogenic bladder. Patient performs self catheterizations 4-5 times daily. Now has Murphy. 5. Metabolic alkalosis secondary to hydration ion losses from NG output. Resolved bicarb is 23 6. Hypertension with chronic kidney disease. 7. UTI with urine culture positive for Klebsiella and E. coli maintained on antibiotics. 8. Hypernatremia secondary to lack of oral water intake. Resolved with sodium of 138 9. A-fib Plan: 1. Maintain the TPN and she is being started on oral therefore she should be adequately hydrated. 2. Hold off any diuretics for right now. 3. Mild hypophosphatemia is being replaced with phosphorus replacement 4. Mild hypo-kalemia is being replaced
[2019-02-15] MEDS: APIXABAN 2.5 MG TABLET PO SCH ×2 (10:47→20:18)
[2019-02-15] MEDS: METOPROLOL TARTRATE 25 MG TAB PO SCH ×2 (10:47→20:18)
[2019-02-15] MEDS: PIPERACILLIN-TAZOBACTAM 3.375 GM in SODIUM CHLORIDE 0.9% 100 ML IVPB SCH ×2 (10:48→20:18)
[2019-02-15] MEDS ORDERED: POTASSIUM CHLORIDE ER 20 MEQ TAB.ER PO SCH (11:00)
[2019-02-15] MEDS ORDERED: POTASSIUM PHOSPHATE 10 MMOL in SODIUM CHLORIDE 0.9% 100 ML IV ONE (11:00)
[2019-02-15 11:52] LABS: Glucose,Whole Blood 170 mg/dL (75-99)
--- NOTE | 2019-02-15 13:22 | P.PN ---
Subjective Progress Note Date: 02/15/19 (ICU to 266-1) Principal diagnosis: mechanical obstruction with small bowel and distended abdomen with history of adhesions in the past. The progress note dictated on 02/08/2090 by Patient with history notable bowel movement or stool or passing flatus for more than one week duration x-ray indicating small bowel mechanical obstruction. And patient currently nothing by mouth with NG tube which she did some relief. Her vital sign temperature 90.8 orally F Fahrenheit and her pulse rate 80 and she developed on the surgical floor atrial fibrillation with a rate of 1:30 P 8/m patient transferred to monitoring analyst floor with cardiology consultation which she was started on cardiac exam drip. And seen by Dr. ISATU Zamudio. Respiratory rate 16 and her blood pressure is hypertensive in spite of trial of medication 187/84. She is on nasal cannula 2 L of oxygen with a pulse ox 95%. current laboratories indicating that her WBC 5.3 with a hemoglobin 11.6, her platelet count 414.next is her PTT 32.6with the normal range 30.6. Minimally elevated. Chemistry indicating sodium 144 potassium 3.8 chloride 108 carbon dioxid 28, anion gap 8, BUN 20, creatinine 1.94, EGFR 23 with chronic kidney disease stage IV. Glucose 131AST and LT normal alk phos 137 total protein 6.1 and albumin 3.4 thyroid function is normal and the free T3 some little bit lower than normal that is because of her illness Nephrology evaluation and assessment indicating patient with the UTI Klebsiella pneumonia and E. coli treated according to the culture with the assessment acute kidney injury possibly prerenal improved with hydration. Chronic kidney disease stage IV with the creatinine near 2 secondary to hydronephrosis and left renal atrophy. #3 abdominal pain with questionable diverticulitis and chronic obstruction and NG tube for decompression. Neurogenic bladder and uses a catheterization 4-5 a day metabolic acidosis and she is on bicarb hypertension is controlled and UTI. Physical exam patient status post barium enema and patient the result reviewed by Dr. Sahu and his impression will be discussed with the family. HEENT was negative neck was supple and chest was clear and the heart was currently controlled atrophic And abdomen is tender distended and with the small bowel obstruction extremities no edema. Assessment small bowel obstruction mechanical and high fall to the patient should have surgical intervention. However this is a surgical case and up to the family and the surgeon. progress note date of service 02/15/[address] Engel. Patient seen and evaluated [id number] in the ICU. Reviewed the consulting physician note. Nephrology assessment acute kidney injury secondary to small bowel obstruction and is status post laparotomy and sigmoid colectomy and end colostomy. Creatinine improved from 2.4 on admission, currently 1.84 which is changed today to 2.3 on 02/13/2019. She is febrile and very become septic, she is on TPN. Chronic kidney disease stage IV with the underlying nephrosclerosis left renal atrophy. Status post exploratory laparotomy with sigmoid colectomy and end colostomy, neurogenic bladder currently she had a Murphy catheter metabolic alkalosis secondary to NG suction output and hydration and that's resolved carbon dioxide 23. Critical care and pulmonary note abdominal discomfort with constipation and colon obstruction exploratory laparotomy and extensive lysis of adhesion sigmoid colectomy and colostomy and also postoperative day #3 patient on TPN and they initiated today. Clear liquid diet and the NG tube was removed. She has chronic hypoxic respiratory failure and they started her on BiPAP and the high flow of oxygen 15 L/m she has atelectasis and effusion pneumonia is doubtful but could not be excluded completely. Atrial fibrillation with RVR however currently is in the 90 UTI with Klebsiella pneumonia and E. coli covered with antibiotic. Ex-smoker. Hypertension hyperlipidemia acute on the top of chronic renal failure and with the clinic with the underlying hyponatremia is a recovered. Plan he check the pro-calcitonin and switch the patient to IV Zosyn and discontinue Rocephin and Flagyl and continue cardiac exam drip for the rate control continue her oral anticoagulant with any questions allow clear liquid diet and she is taking TPN now and a CAT scan of the chest was noted and deep breathing and pulmonary toilette and incentive spirometry will continue.by Dr. Egan note On examination [id number] patient is conscious, confused and the she had feeling of depressed, but she is taking the Cymbalta for antidepressant and she started on liquid diet . Patient is conscious alert she is stating that she can the dye. HEENT was negative and neck was supple no JVD. She is on the high oxygen flow, managing on her own. Basilar rhonchi's with atelectasis and there is scattered rhonchi with secretion. Heart irregular irregularity was atrial fibrillation and her pulse rate ranging between 90s to high 80s on Cardizem drip. The abdomen is positive bowel sound is yeast distiller the colostomy bag with the stools however not filled up and in spite of that she is tympanitic teabag is not filled with gas. Extremities she is on protocol in ICU and she is also on anticoagulant Laboratories: White count is 18.1, hemoglobin is 10.3 with hematocrit 32.5, platelet count satisfactory to 67 Chemistry: She is sodium 138 potassium 3.7 chloride 108 carbon dioxide 23 and anion gap is 7 the BUN is 45 creatinine 2.18. The estimated GFR for non- is 20, stable urine outputshe is on TPN as well as insulin for the hyperglycemia and the blood sugar ranging between 170-137patient was not diabetic in the past. The phosphate was improved 2.1-2.3 magnesium is normal, and liver function is normal including the alkaline phosphatasealbumin 2.4 secondary to surgery and nothing by mouth and prior to that unable to move her bowel was less than appetite Assessment:and plan. Patient in ICU with intensive care with multiple specialists who covering the critical point as well as renal function as well as the cardiac function Prognosis guarded but improving with the presence of the positive bowel sounds and still in the back. Chronic kidney disease stage IV with atrophy of the left kidney and underlying history of hydroureter or hydronephrosis. Currently hypoproteinemia and mild hypoalbuminemia with nutritional and protein calorie deficiency secondary to unable to eat which started today on clear liquid diet Continue ICU protocol and the lab. Objective - Vital Signs Vital signs: Vital Signs Temp 98.4 F 02/15/19 06:58 Pulse 88 02/15/19 12:40 Resp 20 02/15/19 05:40 BP 115/70 02/15/19 05:40 Pulse Ox 92 L 02/15/19 05:40 Intake & Output 02/14/19 02/15/19 02/15/19 18:59 06:59 18:59 Intake Total 7.417 103.667 675 Output Total 600 1900 210 Balance -592.583 -1796.333 465 Weight 73 kg Intake: Intake, IV Titration 7.417 103.667 575 Amount Diltiazem 125 mg In 7.417 103.667 Sodium Chloride 0.9% 100 ml @ 5 MG/HR 5 mls/hr IV .Q24H [facility] Rx#:[id number] Piperacillin-Tazobactam 3 100 .375 gm In Sodium Chloride 0.9% 100 ml @ 25 mls/hr IVPB Q12HR [facility] Rx #:[id number] Potassium Acetate 20 meq 375 Magnesium Sulfate gm 1 gm Calcium Gluconate 1 gm Potassium Phosphate 10 mmol In Amino Acid 4.25%- D10w 1,000 ml @ 75 mls/hr IV .BY DURATION [facility] Rx#: [id number] Potassium Phosphate 10 100 mmol In Sodium Chloride 0 .9% 100 ml @ 50 mls/hr IV ONCE ONE Rx#:[id number] Oral 100 Output: Urine 400 1800 210 Straight 0 0 Stool 200 100 Other: Voiding Method Indwelling Catheter Indwelling Catheter - Labs CBC & Chem 7: 02/15/19 08:22 02/15/19 08:22 Labs: Abnormal Lab Results - Last 24 Hours (Table) 02/14/19 02/14/19 02/15/19 Range/Units 18:26 23:53 02:46 WBC (3.8-10.6) k/uL RBC (3.80-5.40) m/uL Hgb (11.4-16.0) gm/dL Hct (34.0-46.0) % Neutrophils # (1.3-7.7) k/uL Chloride (98-107) mmol/L BUN 34 H (7-17) mg/dL Creatinine 2.16 H (0.52-1.04) mg/dL Glucose 147 H (74-99) mg/dL POC Glucose (mg/dL) 145 H 139 H (75-99) mg/dL Phosphorus 2.1 L (2.5-4.5) mg/dL Total Protein (6.3-8.2) g/dL Albumin (3.5-5.0) g/dL 02/15/19 02/15/19 02/15/19 Range/Units 06:01 08:12 08:22 WBC 18.1 H (3.8-10.6) k/uL RBC 3.38 L (3.80-5.40) m/uL Hgb 10.3 L (11.4-16.0) gm/dL Hct 32.5 L (34.0-46.0) % Neutrophils # 14.8 H (1.3-7.7) k/uL Chloride (98-107) mmol/L BUN (7-17) mg/dL Creatinine (0.52-1.04) mg/dL Glucose (74-99) mg/dL POC Glucose (mg/dL) 172 H 137 H (75-99) mg/dL Phosphorus (2.5-4.5) mg/dL Total Protein (6.3-8.2) g/dL Albumin (3.5-5.0) g/dL 02/15/19 02/15/19 02/15/19 Range/Units 08:22 08:22 11:51 WBC (3.8-10.6) k/uL RBC (3.80-5.40) m/uL Hgb (11.4-16.0) gm/dL Hct (34.0-46.0) % Neutrophils # (1.3-7.7) k/uL Chloride 108 H (98-107) mmol/L BUN 35 H (7-17) mg/dL Creatinine 2.18 H (0.52-1.04) mg/dL Glucose 146 H (74-99) mg/dL POC Glucose (mg/dL) 170 H (75-99) mg/dL Phosphorus 2.2 L (2.5-4.5) mg/dL Total Protein 4.9 L (6.3-8.2) g/dL Albumin 2.4 L (3.5-5.0) g/dL
[2019-02-15] MEDS: 1: MVI, ADULT NO.4 WITH VIT K 10 ML, TRACE (CONC-1ML/DOSE) 1 ML, POTASSIUM ACETATE 20 ME IV SCH ×7 (13:51)
--- NOTE | 2019-02-15 14:15 | P.PN ---
Progress Note - Text Progress Note Date: 02/15/19 the patient transferred to the ICU for shortness of breath yesterday. Her CAT scan shows evidence of atelectasis changes. She currently has minimal complaints of abdominal pain. On exam her vital signs are stable. Her abdomen soft. Colostomy shows some evidence of functioning with some liquid stool and gas in the bag. Incision site is clean dry tach. Patient will have clear liquid diet started. Pulmonology was evaluate her respiratory status. She'll continue have supportive care.
[2019-02-15 17:23] LABS: Glucose,Whole Blood 170 mg/dL (75-99)
[2019-02-15] MEDS ORDERED: IPRATROPIUM-ALBUTEROL 3 ML NEB INHALATION PRN (19:52)
[2019-02-15] MEDS: DULoxetine HCL 60 MG CAPSULE.DR PO SCH (20:18)
[2019-02-15] MEDS: ATORVASTATIN 10 MG TAB PO SCH (20:18)
[2019-02-15] MEDS: BUDESONIDE 0.5 MG/2 ML NEBU INHALATION SCH (20:55)
[2019-02-15 23:45] LABS: Glucose,Whole Blood 186 mg/dL (75-99)
[2019-02-16] MEDS: ACETAMINOPHEN TAB 500 MG TAB PO PRN (01:02)
[2019-02-16] MEDS: MORPHINE SULFATE 4 MG/ML SYRINGE IVP PRN (01:57)
[2019-02-16] MEDS: DILTIAZEM 125 MG in SODIUM CHLORIDE 0.9% 100 ML IV SCH ×2 (04:16→16:51)
[2019-02-16] MEDS: 1: MVI, ADULT NO.4 WITH VIT K 10 ML, TRACE (CONC-1ML/DOSE) 1 ML, POTASSIUM ACETATE 20 ME IV SCH ×14 (04:23→19:14)
[2019-02-16 05:57] LABS: Basophils # (A) 0.1 k/uL (0-0.2); Basophils % (A) 1 %; Eosinophils # (A) 0.5 k/uL (0-0.7); Eosinophils % (A) 3 %; HCT 32.2 % (34.0-46.0); HGB 10.1 gm/dL (11.4-16.0); Hypochromasia Moderate; Lymphocytes # (A) 0.8 k/uL (1.0-4.8); Lymphocytes % (A) 6 %; MCH 30.5 pg (25.0-35.0); MCHC 31.4 g/dL (31.0-37.0); MCV 97.1 fL (80.0-100.0); Mean Platelet Volume 9.1; Monocytes # (A) 0.6 k/uL (0-1.0); Monocytes % (A) 4 %; Neutrophils # (A) 12.3 k/uL (1.3-7.7); Neutrophils % (A) 85 %; Platelet Count 237 k/uL (150-450); RBC 3.32 m/uL (3.80-5.40); RDW 14.3 % (11.5-15.5); WBC 14.5 k/uL (3.8-10.6)
[2019-02-16 06:04] LABS: Glucose,Whole Blood 220 mg/dL (75-99)
[2019-02-16 06:07] LABS: Calcium 8.6 mg/dL (8.4-10.2); Magnesium 2.4 mg/dL (1.6-2.3); Phosphorus 2.7 mg/dL (2.5-4.5); Potassium 4.2 mmol/L (3.5-5.1)
[2019-02-16] MEDS: INSULIN ASPART (NovoLOG) 100 UNIT/ML VIAL SQ SCH ×3 (06:08→18:23)
--- NOTE | 2019-02-16 07:18 | XR ---
EXAMINATION TYPE: XR chest 1V DATE OF EXAM: 02/16/2019 COMPARISON: 02/13/2019 HISTORY: 83-year-old female follow-up pneumonia TECHNIQUE: Single frontal view of the chest is obtained. FINDINGS: NG tube is removed in the interval. Heart margins partially obscured by adjacent pleural parenchymal opacities. Continued asymmetric elevation right hemidiaphragm with bibasilar opacities. IMPRESSION: Continued bibasilar pneumonia and atelectasis.
[2019-02-16] MEDS: BUDESONIDE 0.5 MG/2 ML NEBU INHALATION SCH ×2 (07:43→21:12)
[2019-02-16] MEDS: IPRATROPIUM-ALBUTEROL 3 ML NEB INHALATION SCH ×3 (07:43→21:12)
[2019-02-16] MEDS: APIXABAN 2.5 MG TABLET PO SCH ×2 (08:20→21:50)
[2019-02-16] MEDS: METOPROLOL TARTRATE 25 MG TAB PO SCH ×3 (08:20→21:50)
[2019-02-16] MEDS: PIPERACILLIN-TAZOBACTAM 3.375 GM in SODIUM CHLORIDE 0.9% 100 ML IVPB SCH ×2 (08:20→21:00)
--- NOTE | 2019-02-16 09:39 | P.PN ---
Subjective Progress Note Date: 02/16/19 This 82-year-old female with history of hypertension and diastolic congestive heart failure and paroxysmal atrial fibrillation had a colectomy laparoscopically. Patient is not complaining of abdominal pain but complains of shortness of breath. She is in atrial fibrillation with controlled and corresponds. Her blood pressure is about 110. Patient is on Catapres along with metoprolol. She is also on Eliquis. I will increase the dose of the metoprolol and the heart rate is controlled, we'll may discontinue Cardizem. Lungs examination shows diminished breath sounds at bases. Heart is irregular. We'll follow Objective - Vital Signs Vital signs: Vital Signs Temp 98.1 F 02/16/19 08:00 Pulse 103 H 02/16/19 09:00 Resp 16 02/16/19 09:00 BP 94/72 02/16/19 09:00 Pulse Ox 91 L 02/16/19 09:00 Intake & Output 02/15/19 02/16/19 02/16/19 18:59 06:59 18:59 Intake Total 2611.3333 1035 367.5 Output Total 480 507 170 Balance 2131.3333 528 197.5 Weight 70.3 kg Intake: IV 1035 267.5 0.9 Normal saline 110 30 Mvi, Adult No.4 with Vit 675 K 10 ml Trace (Conc-1Ml/ Dose) 1 ml Potassium Acetate 20 meq Magnesium Sulfate gm 1 gm Calcium Gluconate 1 gm Potassium Phosphate 10 mmol In Amino Acid 4.25%-D10w 1, 000 ml @ 75 mls/hr IV .BY DURATION [facility] Rx#: [id number] Piperacillin-Tazobactam 3 100 12.5 .375 gm In Sodium Chloride 0.9% 100 ml @ 25 mls/hr IVPB Q12HR [facility] Rx #:[id number] Potassium Acetate 20 meq 150 225 Magnesium Sulfate gm 1 gm Calcium Gluconate 1 gm Potassium Phosphate 10 mmol In Amino Acid 4.25%- D10w 1,000 ml @ 75 mls/hr IV .BY DURATION [facility] Rx#: [id number] Intake, IV Titration 2175.3333 Amount Diltiazem 125 mg In 125 Sodium Chloride 0.9% 100 ml @ 5 MG/HR 5 mls/hr IV .Q24H [facility] Rx#:[id number] Mvi, Adult No.4 with Vit 450 K 10 ml Trace (Conc-1Ml/ Dose) 1 ml Potassium Acetate 20 meq Magnesium Sulfate gm 1 gm Calcium Gluconate 1 gm Potassium Phosphate 10 mmol In Amino Acid 4.25%-D10w 1, 000 ml @ 75 mls/hr IV .BY DURATION [facility] Rx#: [id number] Piperacillin-Tazobactam 3 100 .375 gm In Sodium Chloride 0.9% 100 ml @ 25 mls/hr IVPB Q12HR [facility] Rx #:[id number] Potassium Acetate 20 meq 1400.3333 Magnesium Sulfate gm 1 gm Calcium Gluconate 1 gm Potassium Phosphate 10 mmol In Amino Acid 4.25%- D10w 1,000 ml @ 75 mls/hr IV .BY DURATION [facility] Rx#: [id number] Potassium Phosphate 10 100 mmol In Sodium Chloride 0 .9% 100 ml @ 50 mls/hr IV ONCE ONE Rx#:[id number] Oral 436 100 Output: Urine 480 507 170 Other: Voiding Method Indwelling Catheter Indwelling Catheter Indwelling Catheter - Exam GENERAL EXAM: Patient is alert and oriented and doesn't appear to be in any acute distress with complaints of being short of breath HEENT: Normocephalic. Normal reaction of pupils, equal size, normal range of extraocular motion. No erythema or exudates in the throat. NECK: No masses, no nuchal rigidity. CHEST: No chest wall deformity. LUNGS: Diminished breath sounds at bases HEART: S1 and S2 normal with no audible mumurs or gallops. Regular rhythm, femorals equal on both sides.. ABDOMEN: No hepatosplenomegaly, normal bowel sounds, no guarding or rigidity. SKIN: No rashes CENTRAL NERVOUS SYSTEM: No focal deficits. EXTREMITIES: No cyanosis, clubbing or edema. - Labs CBC & Chem 7: 02/16/19 05:24 02/16/19 05:21 Labs: Abnormal Lab Results - Last 24 Hours (Table) 02/15/19 02/15/19 02/15/19 Range/Units 11:51 17:22 23:44 WBC (3.8-10.6) k/uL RBC (3.80-5.40) m/uL Hgb (11.4-16.0) gm/dL Hct (34.0-46.0) % Neutrophils # (1.3-7.7) k/uL Lymphocytes # (1.0-4.8) k/uL Sodium (137-145) mmol/L Carbon Dioxide (22-30) mmol/L BUN (7-17) mg/dL Creatinine (0.52-1.04) mg/dL Glucose (74-99) mg/dL POC Glucose (mg/dL) 170 H 170 H 186 H (75-99) mg/dL Magnesium (1.6-2.3) mg/dL 02/16/19 02/16/19 02/16/19 Range/Units 05:21 05:24 06:04 WBC 14.5 H (3.8-10.6) k/uL RBC 3.32 L (3.80-5.40) m/uL Hgb 10.1 L (11.4-16.0) gm/dL Hct 32.2 L (34.0-46.0) % Neutrophils # 12.3 H (1.3-7.7) k/uL Lymphocytes # 0.8 L (1.0-4.8) k/uL Sodium 135 L (137-145) mmol/L Carbon Dioxide 21 L (22-30) mmol/L BUN 41 H (7-17) mg/dL Creatinine 2.01 H (0.52-1.04) mg/dL Glucose 164 H (74-99) mg/dL POC Glucose (mg/dL) 220 H (75-99) mg/dL Magnesium 2.4 H (1.6-2.3) mg/dL Assessment and Plan (1) Essential hypertension Current Visit: Yes Status: Acute Code(s): I10 - ESSENTIAL (PRIMARY) HYPERTENSION SNOMED Code(s): 19966615 (2) Partial small bowel obstruction Current Visit: Yes Status: Acute Code(s): K56.600 - PARTIAL INTESTINAL OBSTRUCTION, UNSPECIFIED TO CAUSE SNOMED Code(s): 148867477 (3) Paroxysmal atrial fibrillation Current Visit: Yes Status: Acute Code(s): I48.0 - PAROXYSMAL ATRIAL FI BRILLATION SNOMED Code(s): 820162152 (4) Diastolic CHF Current Visit: Yes Status: Acute Code(s): I50.30 - UNSPECIFIED DIASTOLIC (CONGESTIVE) HEART FAILURE SNOMED Code(s): 937110797 Plan: Continue current medical therapy. Increase the dose of the metoprolol and discontinue Cardizem. Rest of the medication to be continued
--- NOTE | 2019-02-16 09:47 | P.PN ---
Subjective Progress Note Date: 02/16/19 Principal diagnosis: Colonic obstruction Patient was transferred to the ICU yesterday because of hypoxemia. Patient taking in very little on her incentive spirometry. Pulse ox remain in the low 90s. She admits to being somewhat short of breath. Mild bloating. No significant abdominal pain. Some ostomy function. No nausea or vomiting. Nasogastric tube has been removed. Objective - Vital Signs Vital signs: Vital Signs Temp 98.1 F 02/16/19 08:00 Pulse 103 H 02/16/19 09:00 Resp 16 02/16/19 09:00 BP 94/72 02/16/19 09:00 Pulse Ox 91 L 02/16/19 09:00 Intake & Output 02/15/19 02/16/19 02/16/19 18:59 06:59 18:59 Intake Total 2611.3333 1035 367.5 Output Total 480 507 170 Balance 2131.3333 528 197.5 Weight 70.3 kg Intake: IV 1035 267.5 0.9 Normal saline 110 30 Mvi, Adult No.4 with Vit 675 K 10 ml Trace (Conc-1Ml/ Dose) 1 ml Potassium Acetate 20 meq Magnesium Sulfate gm 1 gm Calcium Gluconate 1 gm Potassium Phosphate 10 mmol In Amino Acid 4.25%-D10w 1, 000 ml @ 75 mls/hr IV .BY DURATION [facility] Rx#: [id number] Piperacillin-Tazobactam 3 100 12.5 .375 gm In Sodium Chloride 0.9% 100 ml @ 25 mls/hr IVPB Q12HR [facility] Rx #:[id number] Potassium Acetate 20 meq 150 225 Magnesium Sulfate gm 1 gm Calcium Gluconate 1 gm Potassium Phosphate 10 mmol In Amino Acid 4.25%- D10w 1,000 ml @ 75 mls/hr IV .BY DURATION [facility] Rx#: [id number] Intake, IV Titration 2175.3333 Amount Diltiazem 125 mg In 125 Sodium Chloride 0.9% 100 ml @ 5 MG/HR 5 mls/hr IV .Q24H [facility] Rx#:[id number] Mvi, Adult No.4 with Vit 450 K 10 ml Trace (Conc-1Ml/ Dose) 1 ml Potassium Acetate 20 meq Magnesium Sulfate gm 1 gm Calcium Gluconate 1 gm Potassium Phosphate 10 mmol In Amino Acid 4.25%-D10w 1, 000 ml @ 75 mls/hr IV .BY DURATION [facility] Rx#: [id number] Piperacillin-Tazobactam 3 100 .375 gm In Sodium Chloride 0.9% 100 ml @ 25 mls/hr IVPB Q12HR [facility] Rx #:[id number] Potassium Acetate 20 meq 1400.3333 Magnesium Sulfate gm 1 gm Calcium Gluconate 1 gm Potassium Phosphate 10 mmol In Amino Acid 4.25%- D10w 1,000 ml @ 75 mls/hr IV .BY DURATION [facility] Rx#: [id number] Potassium Phosphate 10 100 mmol In Sodium Chloride 0 .9% 100 ml @ 50 mls/hr IV ONCE ONE Rx#:[id number] Oral 436 100 Output: Urine 480 507 170 Other: Voiding Method Indwelling Catheter Indwelling Catheter Indwelling Catheter - Exam Abdomen: Soft, mild distention, incision clean and dry, wick sites clean, ostomy functioning - Labs CBC & Chem 7: 02/16/19 05:24 02/16/19 05:21 Labs: Abnormal Lab Results - Last 24 Hours (Table) 02/15/19 02/15/19 02/15/19 Range/Units 11:51 17:22 23:44 WBC (3.8-10.6) k/uL RBC (3.80-5.40) m/uL Hgb (11.4-16.0) gm/dL Hct (34.0-46.0) % Neutrophils # (1.3-7.7) k/uL Lymphocytes # (1.0-4.8) k/uL Sodium (137-145) mmol/L Carbon Dioxide (22-30) mmol/L BUN (7-17) mg/dL Creatinine (0.52-1.04) mg/dL Glucose (74-99) mg/dL POC Glucose (mg/dL) 170 H 170 H 186 H (75-99) mg/dL Magnesium (1.6-2.3) mg/dL 02/16/19 02/16/19 02/16/19 Range/Units 05:21 05:24 06:04 WBC 14.5 H (3.8-10.6) k/uL RBC 3.32 L (3.80-5.40) m/uL Hgb 10.1 L (11.4-16.0) gm/dL Hct 32.2 L (34.0-46.0) % Neutrophils # 12.3 H (1.3-7.7) k/uL Lymphocytes # 0.8 L (1.0-4.8) k/uL Sodium 135 L (137-145) mmol/L Carbon Dioxide 21 L (22-30) mmol/L BUN 41 H (7-17) mg/dL Creatinine 2.01 H (0.52-1.04) mg/dL Glucose 164 H (74-99) mg/dL POC Glucose (mg/dL) 220 H (75-99) mg/dL Magnesium 2.4 H (1.6-2.3) mg/dL Assessment and Plan (1) Abdominal pain Narrative/Plan: Patient with persistent pulmonary issues. Await pulmonary evaluation this morning. Keep in ICU for now. Maintain clear liquids. Increase activity as able. Current Visit: Yes Status: Acute Code(s): R10.9 - UNSPECIFIED ABDOMINAL PAIN SNOMED Code(s): 04392129
[2019-02-16 12:00] LABS: Glucose,Whole Blood 224 mg/dL (75-99)
--- NOTE | 2019-02-16 13:36 | P.PN ---
Progress Note - Text Progress Note Date: 02/16/19 (on BiPAP) progress note date of service 02/16/[address] Engel. Patient seen and evaluated today, she is wearing BiPAP comfortable. Vital sign temperature 99.7 exemplary with low-grade temperature pulse is 89 with the underlying atrial fibrillation currently seen by Dr. Giles decorator lighting fixtures and urologist medication and increase the dose of beta ahsan L to wean her off Cardizem. Her respiratory rate 2216. Blood pressure 107/90 , 103/76. Pulse ox 95% -94% on 80% FiO2 with the pu lmonary problem, chest x-ray indicating probable atelectasis versus pneumonia with possible aspiration her IV antibiotic has been adjusted by pulmonary and critical care who is currently following the patient. Also nephrology covering patient is well, as well as cardiology. CBC: WBC 14.5, hemoglobin 10.1, hematocrit 32.2 with a moderate hypochromasia. Chemistry: Her sodium 135 potassium 4.2, carbon dioxide 21, BUN 41 creatinine 2.01, EGFR 22. Glucosefasting in the lab 164, however POC glucose has been fluctuating to 222- 224, calcium 8.6 and phosphorus 2.7 and magnesium markedly elevated to 44 Patient on TPN, which caused the hypoglycemia however the blood glucose exceeded 250 and will continue with the [place] to scale. On exam: Patient's conscious alertOn BiPAP comfortable HEENT negative Neck was supple no JVD. No thyromegaly no lymphadenopathy trachea midline. Chest and radiated bilaterally with decreased air entry on the basis with a history of atelectasis and consolidation of respiration of the leukocytosis. Heart : Atrial fibrillation with a controlled to control the ventricular response. Abdomen protuberant still distended. Colostomy bag in the left sided. Extremities: She is on an inflatable stocking for DVT prophylaxis, as well as she is on a requests anticoagulant. Assessment and plan. Patient currently stable however still prognosis is guarded. Monitored and followed by critical care and pulmonary, cardiology, nephrology,. Diabetes relief this will be continued to colored by 6 POC and scale.
--- NOTE | 2019-02-16 13:50 | P.PN ---
Subjective Progress Note Date: 02/16/19 Principal diagnosis: Acute bowel obstruction status post laparotomy extensive was of adhesions and sigmoid colectomy and end colostomy postoperative day #4. This is a pleasant 83-year-old female patient admitted back on 02/07/2019 with complaints of constipation and abdominal discomfort. She had not moved her bowels for several days prior. Abdominal x-rays did show evidence of constipation. Fleet enema and MiraLAX at home were unsuccessful. She was subsequently admitted for abdominal bloating and discomfort. She was found to have a colon obstruction and yesterday had undergone exposure laparotomy, extensive lysis of adhesions, sigmoid colectomy, end colostomy done by Dr. Miller. She remained hypoxic postoperatively and was placed on BiPAP with an FiO2 of 80%. We're consulted for the same. No chest x-ray was done. She is seen today on the selective care unit. She is currently awake and alert in no acute distress. She is having some ongoing abdominal discomfort. She has a midline incision with maggy intact and a colostomy with stool present. She is currently on 6 L high flow nasal cannula and maintaining O2 saturation in the mid 90s. She denies any worsening shortness of breath, cough or congestion. Urine culture was positive for Klebsiella pneumoniae and E coli. Blood cultures had revealed no growth. White count 12.8. Hemoglobin 11.6. Sodium 148. Potassium 3.9. Creatinine 2.20. She has D5.45 running at 100 ML's per hour. She is currently on ceftriaxone and Flagyl. PPN and lipids have been ordered. The patient was having issues with atrial fibrillation preoperatively and was initially on a heparin drip. The plan from cardiology is to initiate Eliquis once cleared surgically. On today's evaluation of 02/14/2019 I was asked even with this patient and the patient was found to be more lethargic and short of breath. I the patient did she is relatively comfortable on oxygen at 4 L. Nevertheless, she states that she wants to and she is unable to take this ongoing treatment any further. In terms of her cardiac condition, she is in atrial fibrillation with rapid ventricular response and a current heart rate is around 120-140. She has a Murphy catheter urine output is in order of 30 mL an hour. She had a chest x-ray that showed increased opacification of the lung bases. Ultrasound of the chest was done that showed small pockets and based on the ultrasound these markers were not and minimal 4 thoracentesis. She is on Diprivan running at the rate of 75 mL an hour. She is also on IV fluids running at 75 mL an hour of normal saline. The patient has a positive fluid balance of 1.1 L. She has a creatinine of 2.4 with a mean of 34. ABCDs not done this morning. She has a positive output and her colostomy bag. The surgical wound site is dry clean and intact. She is afebrile for now. on 02/16/2016, the patient is transferred to the intensive care unit. The patient's oxygen requirements went up yesterday and she is currently on15 L of oxygen by nasal cannula. I opted to bring her down to the ICU. The ultrasound of the chest was not conclusive in terms of fluid and based on that I ordered a CAT scan of the chest that was done without contrast and the CAT scan showed worsening atelectatic changes in lung bases, pneumonia cannot be completely excluded. The pleural effusions were very tiny and there were not and the blood for thoracentesis. Based on that, no intervention was done. Currently she is awake and alert. She is on a combination of IV Rocephin and Flagyl.er white cell count came up to 18. Her creatinine is up to 2.1. Creatinine is stable for now. The lactic acid level was low at 1. She is awake. She is alert. The colostomy is functioning and she has adequate output at this point in time.The patient still on TPN and were going to initiate someclear liquid diet today. Reevaluated today on 02/16/2019, patient remains in the ICU, O2 saturation is marginal, still requiring a high flow nasal cannula at 15 L/m, chest x-ray shows significant airspace disease and atelectasis with consolidation at the bases bilaterally right more so than left, hence I recommended that we use intermittently BiPAP with IPAP of 12 and EPAP of 4. Continues to have leukocytosis with WBC count of 14.5, hemoglobin is 10.1 lites are normal BUN is 41 creatinine 2.01. Close to her baseline since admission. Chest x-ray is quite concerning to me, and CT of the chest was also reviewed, patient has significant bibasilar consolidation and air bronchograms noted in both lungs bilaterally more so in the right lower lobe. Objective - Vital Signs Vital signs: Vital Signs Temp 99.7 F H 02/16/19 12:00 Pulse 75 02/16/19 13:09 Resp 20 02/16/19 13:00 BP 96/52 02/16/19 13:00 Pulse Ox 96 02/16/19 13:00 Intake & Output 02/15/19 02/16/19 02/16/19 18:59 06:59 18:59 Intake Total 2611.3333 1035 445.0 Output Total 480 507 355 Balance 2131.3333 528 90.0 Weight 70.3 kg Intake: IV 1035 345.0 0.9 Normal saline 110 70 Mvi, Adult No.4 with Vit 675 K 10 ml Trace (Conc-1Ml/ Dose) 1 ml Potassium Acetate 20 meq Magnesium Sulfate gm 1 gm Calcium Gluconate 1 gm Potassium Phosphate 10 mmol In Amino Acid 4.25%-D10w 1, 000 ml @ 75 mls/hr IV .BY DURATION [facility] Rx#: [id number] Piperacillin-Tazobactam 3 100 50.0 .375 gm In Sodium Chloride 0.9% 100 ml @ 25 mls/hr IVPB Q12HR [facility] Rx #:[id number] Potassium Acetate 20 meq 150 225 Magnesium Sulfate gm 1 gm Calcium Gluconate 1 gm Potassium Phosphate 10 mmol In Amino Acid 4.25%- D10w 1,000 ml @ 75 mls/hr IV .BY DURATION [facility] Rx#: [id number] Intake, IV Titration 2175.3333 Amount Diltiazem 125 mg In 125 Sodium Chloride 0.9% 100 ml @ 5 MG/HR 5 mls/hr IV .Q24H [facility] Rx#:[id number] Mvi, Adult No.4 with Vit 450 K 10 ml Trace (Conc-1Ml/ Dose) 1 ml Potassium Acetate 20 meq Magnesium Sulfate gm 1 gm Calcium Gluconate 1 gm Potassium Phosphate 10 mmol In Amino Acid 4.25%-D10w 1, 000 ml @ 75 mls/hr IV .BY DURATION [facility] Rx#: [id number] Piperacillin-Tazobactam 3 100 .375 gm In Sodium Chloride 0.9% 100 ml @ 25 mls/hr IVPB Q12HR [facility] Rx #:[id number] Potassium Acetate 20 meq 1400.3333 Magnesium Sulfate gm 1 gm Calcium Gluconate 1 gm Potassium Phosphate 10 mmol In Amino Acid 4.25%- D10w 1,000 ml @ 75 mls/hr IV .BY DURATION [facility] Rx#: [id number] Potassium Phosphate 10 100 mmol In Sodium Chloride 0 .9% 100 ml @ 50 mls/hr IV ONCE ONE Rx#:[id number] Oral 436 100 Output: Urine 480 507 355 Other: Voiding Method Indwelling Catheter Indwelling Catheter Indwelling Catheter - Exam GENERAL EXAM: Revealed 83-year-old female, pleasant, on high flow nasal cannula. Head: Atraumatic normocephalic. EENT: PERRLA, EOMI, neck disc, dry mucous membranes, throat is clear. No neck masses no JVD no stridor. CHEST: No chest wall deformity. LUNGS: Extremely diminished breath sounds at the bases no rhonchi and no wheezes.. CVS: S1 and S2 normal with no audible murmur, regular rhythm. ABDOMEN: Midline incision with maggy intact, colostomy functioning. SPINE: No scoliosis or deformity SKIN: No rashes CENTRAL NERVOUS SYSTEM: No focal deficits, tone is normal in all 4 extremities. EXTREMITIES: There is no peripheral edema. No clubbing, no cyanosis. Pe ripheral pulses are intact. - Labs CBC & Chem 7: 02/16/19 05:24 02/16/19 05:21 Labs: Abnormal Lab Results - Last 24 Hours (Table) 02/15/19 02/15/19 02/15/19 Range/Units 08:22 17:22 23:44 WBC (3.8-10.6) k/uL RBC (3.80-5.40) m/uL Hgb (11.4-16.0) gm/dL Hct (34.0-46.0) % Neutrophils # (1.3-7.7) k/uL Lymphocytes # (1.0-4.8) k/uL Sodium (137-145) mmol/L Carbon Dioxide (22-30) mmol/L BUN (7-17) mg/dL Creatinine (0.52-1.04) mg/dL Glucose (74-99) mg/dL POC Glucose (mg/dL) 170 H 186 H (75-99) mg/dL Magnesium (1.6-2.3) mg/dL Procalcitonin 2.79 H (0.02-0.09) ng/mL 02/16/19 02/16/19 02/16/19 Range/Units 05:21 05:24 06:04 WBC 14.5 H (3.8-10.6) k/uL RBC 3.32 L (3.80-5.40) m/uL Hgb 10.1 L (11.4-16.0) gm/dL Hct 32.2 L (34.0-46.0) % Neutrophils # 12.3 H (1.3-7.7) k/uL Lymphocytes # 0.8 L (1.0-4.8) k/uL Sodium 135 L (137-145) mmol/L Carbon Dioxide 21 L (22-30) mmol/L BUN 41 H (7-17) mg/dL Creatinine 2.01 H (0.52-1.04) mg/dL Glucose 164 H (74-99) mg/dL POC Glucose (mg/dL) 220 H (75-99) mg/dL Magnesium 2.4 H (1.6-2.3) mg/dL Procalcitonin (0.02-0.09) ng/mL 02/16/19 Range/Units 11:59 WBC (3.8-10.6) k/uL RBC (3.80-5.40) m/uL Hgb (11.4-16.0) gm/dL Hct (34.0-46.0) % Neutrophils # (1.3-7.7) k/uL Lymphocytes # (1.0-4.8) k/uL Sodium (137-145) mmol/L Carbon Dioxide (22-30) mmol/L BUN (7-17) mg/dL Creatinine (0.52-1.04) mg/dL Glucose (74-99) mg/dL POC Glucose (mg/dL) 224 H (75-99) mg/dL Magnesium (1.6-2.3) mg/dL Procalcitonin (0.02-0.09) ng/mL Assessment and Plan Assessment: Impression: 1 acute bowel obstruction, status post exploratory laparotomy, extensive lysis of adhesions, sigmoid colectomy, and colostomy postoperative day #4. Acute hypoxic respiratory failure suspect aspiration pneumonia, and postoperative atelectasis. Acute urinary tract infection secondary to Klebsiella pneumoniae and E. coli. Chronic atrial fibrillation. Benign essential hypertension. History of hyperlipidemia. Acute on chronic renal failure, patient has chronic renal failure stage III. Recommendation: Patient had elevated pro calcitonin level, hence we'll continue Zosyn. For presumptive aspiration pneumonia. GI and DVT prophylaxis Continue cardiac meds Continue antibiotics empirically suspect aspiration pneumonia Advanced diet as tolerates. Intermittent use of BiPAP. Incentive spirometry. Aggressive pulmonary toileting. CT of the chest was reviewed. Prognosis remains guarded, patient will remain in the ICU, pulmonary status seems to be relatively concerning. Patient may even require to be intubated if her condition gets any worse. We'll continue to follow. Time with Patient: Less than 30
[2019-02-16] MEDS: FAT EMULSION 20% 250 ML IV SCH (14:05)
--- NOTE | 2019-02-16 14:11 | PN ---
PROGRESS NOTE Patient is seen for followup for acute kidney injury. Her renal function is fairly stable. Serum creatinine at 2.1 to 2.0 mg/dL. Patient is complaining of shortness of breath. She is getting an updraft treatment. She is maintained on Cardizem drip and TPN. Urine output is about 40 to 70 mL/hour. PHYSICAL EXAMINATION: Patient is comfortable. Blood pressure is 94/70, heart rate . On examination of the heart, S1, S2, irregular. Examination of the lungs . Abdomen is soft, tenderness noted. bilaterally. Pain control is grossly intact. LABS: Show sodium 135, potassium 4.8, chloride 106, is 31, BUN is 41, creatinine 2.0. , hemoglobin is 9.1. ASSESSMENT: 1. Acute kidney injury, ATN . 2. Small bowel obstruction, status post and sigmoid . 3. Left renal atrophy 4. Neurogenic bladder , now with a Murphy catheter. 5. Metabolic acidosis . 6. Hyponatremia, supplement to free water deficit, currently improved. 7. Atrial fibrillation, maintain on Cardizem drip. PLAN: Continue to monitor electrolytes, avoid nephrotoxic agents. Repeat labs in a.m. MMDONNYL / TIFFN: [id number] / EDWIN
[2019-02-16] MEDS ORDERED: ACETAMINOPHEN IV (For NPO) 1,000 MG in EMPTY BAG 1 BAG IVPB PRN (14:38)
[2019-02-16 18:19] LABS: Glucose,Whole Blood 242 mg/dL (75-99)
[2019-02-16] MEDS: 1: MVI, ADULT NO.4 WITH VIT K 10 ML, TRACE (CONC-1ML/DOSE) 1 ML, SODIUM ACETATE 30 MEQ, IV SCH ×6 (19:14)
[2019-02-16] MEDS: DULoxetine HCL 60 MG CAPSULE.DR PO SCH (21:50)
[2019-02-16] MEDS: ATORVASTATIN 10 MG TAB PO SCH (21:50)
[2019-02-16 23:46] LABS: Glucose,Whole Blood 181 mg/dL (75-99)
[2019-02-17] MEDS: INSULIN ASPART (NovoLOG) 100 UNIT/ML VIAL SQ SCH ×4 (00:07→18:52)
[2019-02-17] MEDS: MORPHINE SULFATE 4 MG/ML SYRINGE IVP PRN ×2 (01:06→21:05)
[2019-02-17 04:13] LABS: Basophils # (A) 0.1 k/uL (0-0.2); Basophils % (A) 1 %; Eosinophils # (A) 0.4 k/uL (0-0.7); Eosinophils % (A) 3 %; HCT 33.1 % (34.0-46.0); HGB 10.2 gm/dL (11.4-16.0); Hypochromasia Slight; Lymphocytes # (A) 0.7 k/uL (1.0-4.8); Lymphocytes % (A) 5 %; MCH 29.6 pg (25.0-35.0); MCHC 30.9 g/dL (31.0-37.0); MCV 95.7 fL (80.0-100.0); Mean Platelet Volume 8.3; Monocytes # (A) 0.7 k/uL (0-1.0); Monocytes % (A) 5 %; Neutrophils # (A) 11.6 k/uL (1.3-7.7); Neutrophils % (A) 85 %; Platelet Count 245 k/uL (150-450); RBC 3.46 m/uL (3.80-5.40); RDW 14.5 % (11.5-15.5); WBC 13.8 k/uL (3.8-10.6)
[2019-02-17 04:24] LABS: Calcium 8.6 mg/dL (8.4-10.2); Magnesium 2.2 mg/dL (1.6-2.3); Phosphorus 3.2 mg/dL (2.5-4.5); Potassium 4.1 mmol/L (3.5-5.1)
[2019-02-17] MEDS: DILTIAZEM 125 MG in SODIUM CHLORIDE 0.9% 100 ML IV SCH (04:30)
[2019-02-17 06:03] LABS: Glucose,Whole Blood 201 mg/dL (75-99)
[2019-02-17] MEDS: IPRATROPIUM-ALBUTEROL 3 ML NEB INHALATION SCH ×5 (08:16→19:56)
[2019-02-17] MEDS: BUDESONIDE 0.5 MG/2 ML NEBU INHALATION SCH ×3 (08:16→19:56)
[2019-02-17] MEDS: METOPROLOL TARTRATE 25 MG TAB PO SCH ×3 (08:39→21:10)
[2019-02-17] MEDS: PIPERACILLIN-TAZOBACTAM 3.375 GM in SODIUM CHLORIDE 0.9% 100 ML IVPB SCH ×2 (08:39→21:05)
[2019-02-17] MEDS: APIXABAN 2.5 MG TABLET PO SCH ×2 (08:39→21:07)
[2019-02-17] MEDS: 1: MVI, ADULT NO.4 WITH VIT K 10 ML, TRACE (CONC-1ML/DOSE) 1 ML, SODIUM ACETATE 30 MEQ, IV SCH ×6 (11:41)
[2019-02-17] MEDS: METOCLOPRAMIDE 5 MG/ML 2 ML VIAL IVP SCH ×2 (11:42→17:26)
[2019-02-17 11:57] LABS: Glucose,Whole Blood 137 mg/dL (75-99)
--- NOTE | 2019-02-17 12:23 | P.PN ---
Subjective Progress Note Date: 02/17/19 (the abdomen distention and ileus) Principal diagnosis: mechanical obstruction with small bowel and distended abdomen with history of adhesions in the past. The progress note dictated on 02/08/2090 by Patient with history notable bowel movement or stool or passing flatus for more than one week duration x-ray indicating small bowel mechanical obstruction. And patient currently nothing by mouth with NG tube which she did some relief. Her vital sign temperature 90.8 orally F Fahrenheit and her pulse rate 80 and she developed on the surgical floor atrial fibrillation with a rate of 1:30 P 8/m patient transferred to monitoring coordinator floor with cardiology consultation which she was started on cardiac exam drip. And seen by Dr. ISATU Zamudio. Respiratory rate 16 and her blood pressure is hypertensive in spite of trial of medication 187/84. She is on nasal cannula 2 L of oxygen with a pulse ox 95%. current laboratories indicating that her WBC 5.3 with a hemoglobin 11.6, her platelet count 414.next is her PTT 32.6with the normal range 30.6. Minimally elevated. Chemistry indicating sodium 144 potassium 3.8 chloride 108 carbon dioxid 28, anion gap 8, BUN 20, creatinine 1.94, EGFR 23 with chronic kidney disease stage IV. Glucose 131AST and LT normal alk phos 137 total protein 6.1 and albumin 3.4 thyroid function is normal and the free T3 some little bit lower than normal that is because of her illness Nephrology evaluation and assessment indicating patient with the UTI Klebsiella pneumonia and E. coli treated according to the culture with the assessment acute kidney injury possibly prerenal improved with hydration. Chronic kidney disease stage IV with the creatinine near 2 secondary to hydronephrosis and left renal atrophy. #3 abdominal pain with questionable diverticulitis and chronic obstruction and NG tube for decompression. Neurogenic bladder and uses a catheterization 4-5 a day metabolic acidosis and she is on bicarb hypertension is controlled and UTI. Physical exam patient status post barium enema and patient the result reviewed by Dr. Sahu and his impression will be discussed with the family. HEENT was negative neck was supple and chest was clear and the heart was currently controlled atrophic And abdomen is tender distended and with the small bowel obstruction extremities no edema. Assessment small bowel obstruction mechanical and high fall to the patient should have surgical intervention. However this is a surgical case and up to the family and the surgeon. Progress note date of service 02/17/2019 at 12:[address] Engel Patient seen and evaluated and discussed with the patient and the nurse in the ICU. Laboratory: White count 13.8, hemoglobin 10.2 hematocrit 33.1 which is improved from previously done. Chemistry showed that her sodium 135 potassium 4.1 chloride 106 carbon dioxide 22 BUN 41, creatinine 1.94 EGFR is 23. POC blood sugar covered with insulin to scale and she is fluctuating currently monitoring blood glucose was 175 currently 137. Her calcium 8.6, phosphorus is 3.2, magnesium 2.2 oral within normal limit Her vital sign she has atrial fibrillation and on Cardizem drip for rate 95. Respiratory rate ranging between 23-25, blood pressure 120/101 and oxygen saturation 94. The flow rates 15 L/m. Heart rate. Temperature 98.5 percent. On exam: No She is conscious alert able to answer the questions, complaining of the tenderness in the abdomen, colostomy bag no gas and no stool and tympanitic abdomen with a possible ileus. HEENT negative and she is able to tolerate clear ice chips. Neck was supple no JVD no thyromegaly no lymphadenopathy trachea midline. Chest was created bilaterally with lower lung atelectasis and suspicious of basilar pneumonia could be aspiration. She is on antibiotic. Heart: Atrial fibrillation with variable heart rate she is on Cardizem IV and by mouth Lopressor which adjusted yesterday by Dr. Wang cvt rn. Abdomen distended and tympanitic and tender. And no bowel sounds. Extremities: She is on an inflatable stocking and she is also on requests. Neurologically stable. Assessment and plan: Patient is still have distention abdominal tenderness and no gas in the colostomy bag or stool, underlying ileus and Dr. Sahu is following. The renal function is stable Patient on TPN feeding peripherally. Blood pressure fairly well controlled. Atrial fibrillation currently stable rate but irregular Patient still guarded and we hope for resolution of the ileus continue the ICU monitoring. Objective - Vital Signs Vital signs: Vital Signs Temp 98.5 F 02/17/19 08:00 Pulse 95 02/17/19 11:00 Resp 25 H 02/17/19 11:00 BP 120/101 02/17/19 11:00 Pulse Ox 94 L 02/17/19 11:00 Intake & Output 02/16/19 02/17/19 02/17/19 18:59 06:59 18:59 Intake Total 1390.0 1136.5 610 Output Total 570 585 405 Balance 820.0 551.5 205 Weight 70.3 kg 72 kg Intake: IV 1165.0 1020 610 0.9 Normal saline 115 120 60 ACETAMINOPHEN IV (For NPO 100 ) 1,000 mg In Empty Bag 1 bag @ 400 mls/hr IVPB Q6HR PRN Rx#:[id number] Piperacillin-Tazobactam 3 50.0 100 .375 gm In Sodium Chloride 0.9% 100 ml @ 25 mls/hr IVPB Q12HR [facility] Rx #:[id number] Potassium Acetate 20 meq 900 900 450 Magnesium Sulfate gm 1 gm Calcium Gluconate 1 gm Potassium Phosphate 10 mmol In Amino Acid 4.25%- D10w 1,000 ml @ 75 mls/hr IV .BY DURATION [facility] Rx#: [id number] Intake, IV Titration 125 116.5 Amount Diltiazem 125 mg In 125 116.5 Sodium Chloride 0.9% 100 ml @ 5 MG/HR 5 mls/hr IV .Q24H [facility] Rx#:[id number] Oral 100 Output: Urine 570 585 405 Other: Voiding Method Indwelling Catheter Indwelling Catheter Indwelling Catheter - Labs CBC & Chem 7: 02/17/19 03:55 02/17/19 03:53 Labs: Abnormal Lab Results - Last 24 Hours (Table) 02/16/19 02/16/19 02/17/19 Range/Units 18:18 23:45 03:53 WBC (3.8-10.6) k/uL RBC (3.80-5.40) m/uL Hgb (11.4-16.0) gm/dL Hct (34.0-46.0) % MCHC (31.0-37.0) g/dL Neutrophils # (1.3-7.7) k/uL Lymphocytes # (1.0-4.8) k/uL Sodium 135 L (137-145) mmol/L BUN 41 H (7-17) mg/dL Creatinine 1.94 H (0.52-1.04) mg/dL Glucose 175 H (74-99) mg/dL POC Glucose (mg/dL) 242 H 181 H (75-99) mg/dL 02/17/19 02/17/19 02/17/19 Range/Units 03:55 06:02 11:56 WBC 13.8 H (3.8-10.6) k/uL RBC 3.46 L (3.80-5.40) m/uL Hgb 10.2 L (11.4-16.0) gm/dL Hct 33.1 L (34.0-46.0) % MCHC 30.9 L (31.0-37.0) g/dL Neutrophils # 11.6 H (1.3-7.7) k/uL Lymphocytes # 0.7 L (1.0-4.8) k/uL Sodium (137-145) mmol/L BUN (7-17) mg/dL Creatinine (0.52-1.04) mg/dL Glucose (74-99) mg/dL POC Glucose (mg/dL) 201 H 137 H (75-99) mg/dL
--- NOTE | 2019-02-17 13:08 | P.PN ---
Subjective Progress Note Date: 02/17/19 CHIEF COMPLAINT: Abdominal pain HISTORY OF PRESENT ILLNESS: patient is status post exploratory laparotomy, extensive lysis of adhesions, sigmoid colectomy, and end colostomy. Patient was made NPO due to abdominal distention and no output from her ostomy overnight. Patient denies nausea or vomiting. Ostomy still without stool today upon examination. PHYSICAL EXAM: VITAL SIGNS: Reviewed. GENERAL: Well-developed in no acute distress. HEENT: No sclera icterus. Extraocular movements grossly intact. Moist buccal mucosa. Head is atraumatic, normocephalic. ABDOMEN: Abdomen distended. Dressing to abdomen clean dry intact. Ostomy withou t stool noted. NEUROLOGIC: Awake and alert. ASSESSMENT: 1. Abdominal pain, status post exploratory laparotomy, extensive lysis of adhesions, sigmoid colectomy, and end colostomy PLAN: Continue TPN Continue NPO status Begin Reglan 10mg IVP Q6 hours scheduled Will initiate PO intake when ostomy is functioning and abdominal distention decreases Nurse practitioner note has been reviewed by physician. Signing provider agrees with the documented findings, assessment, and plan of care. Objective - Vital Signs Vital signs: Vital Signs Temp 98.5 F 02/17/19 08:00 Pulse 115 H 02/17/19 12:00 Resp 29 H 02/17/19 12:00 BP 118/82 02/17/19 12:00 Pulse Ox 92 L 02/17/19 12:00 Intake & Output 02/16/19 02/17/19 02/17/19 18:59 06:59 18:59 Intake Total 1390.0 1136.5 610 Output Total 570 585 405 Balance 820.0 551.5 205 Weight 70.3 kg 72 kg Intake: IV 1165.0 1020 610 0.9 Normal saline 115 120 60 ACETAMINOPHEN IV (For NPO 100 ) 1,000 mg In Empty Bag 1 bag @ 400 mls/hr IVPB Q6HR PRN Rx#:[id number] Piperacillin-Tazobactam 3 50.0 100 .375 gm In Sodium Chloride 0.9% 100 ml @ 25 mls/hr IVPB Q12HR [facility] Rx #:[id number] Potassium Acetate 20 meq 900 900 450 Magnesium Sulfate gm 1 gm Calcium Gluconate 1 gm Potassium Phosphate 10 mmol In Amino Acid 4.25%- D10w 1,000 ml @ 75 mls/hr IV .BY DURATION [facility] Rx#: [id number] Intake, IV Titration 125 116.5 Amount Diltiazem 125 mg In 125 116.5 Sodium Chloride 0.9% 100 ml @ 5 MG/HR 5 mls/hr IV .Q24H [facility] Rx#:[id number] Oral 100 Output: Urine 570 585 405 Other: Voiding Method Indwelling Catheter Indwelling Catheter Indwelling Catheter - Labs CBC & Chem 7: 02/17/19 03:55 02/17/19 03:53 Labs: Abnormal Lab Results - Last 24 Hours (Table) 02/16/19 02/16/19 02/17/19 Range/Units 18:18 23:45 03:53 WBC (3.8-10.6) k/uL RBC (3.80-5.40) m/uL Hgb (11.4-16.0) gm/dL Hct (34.0-46.0) % MCHC (31.0-37.0) g/dL Neutrophils # (1.3-7.7) k/uL Lymphocytes # (1.0-4.8) k/uL Sodium 135 L (137-145) mmol/L BUN 41 H (7-17) mg/dL Creatinine 1.94 H (0.52-1.04) mg/dL Glucose 175 H (74-99) mg/dL POC Glucose (mg/dL) 242 H 181 H (75-99) mg/dL 02/17/19 02/17/19 02/17/19 Range/Units 03:55 06:02 11:56 WBC 13.8 H (3.8-10.6) k/uL RBC 3.46 L (3.80-5.40) m/uL Hgb 10.2 L (11.4-16.0) gm/dL Hct 33.1 L (34.0-46.0) % MCHC 30.9 L (31.0-37.0) g/dL Neutrophils # 11.6 H (1.3-7.7) k/uL Lymphocytes # 0.7 L (1.0-4.8) k/uL Sodium (137-145) mmol/L BUN (7-17) mg/dL Creatinine (0.52-1.04) mg/dL Glucose (74-99) mg/dL POC Glucose (mg/dL) 201 H 137 H (75-99) mg/dL
--- NOTE | 2019-02-17 14:01 | P.PN ---
Subjective Progress Note Date: 02/17/19 Principal diagnosis: Pt is seen for f/u for JUAN. C/o abdominal pain today. Maintained on TPN and IV cardizem for Afib RVR. Good uop. Cr is stable at 1.9mg/dL Objective - Vital Signs Vital signs: Vital Signs Temp 98.5 F 02/17/19 08:00 Pulse 112 H 02/17/19 13:30 Resp 29 H 02/17/19 12:00 BP 118/82 02/17/19 12:00 Pulse Ox 92 L 02/17/19 12:00 Intake & Output 02/16/19 02/17/19 02/17/19 18:59 06:59 18:59 Intake Total 1390.0 1136.5 610 Output Total 570 585 405 Balance 820.0 551.5 205 Weight 70.3 kg 72 kg Intake: IV 1165.0 1020 610 0.9 Normal saline 115 120 60 ACETAMINOPHEN IV (For NPO 100 ) 1,000 mg In Empty Bag 1 bag @ 400 mls/hr IVPB Q6HR [facility] Rx#:[id number] Piperacillin-Tazobactam 3 50.0 100 .375 gm In Sodium Chloride 0.9% 100 ml @ 25 mls/hr IVPB Q12HR [facility] Rx #:[id number] Potassium Acetate 20 meq 900 900 450 Magnesium Sulfate gm 1 gm Calcium Gluconate 1 gm Potassium Phosphate 10 mmol In Amino Acid 4.25%- D10w 1,000 ml @ 75 mls/hr IV .BY DURATION [facility] Rx#: [id number] Intake, IV Titration 125 116.5 Amount Diltiazem 125 mg In 125 116.5 Sodium Chloride 0.9% 100 ml @ 5 MG/HR 5 mls/hr IV .Q24H [facility] Rx#:[id number] Oral 100 Output: Urine 570 585 405 Other: Voiding Method Indwelling Catheter Indwelling Catheter Indwelling Catheter - Exam Awake, comfortable - Constitutional General appearance: Present: average body habitus, cooperative, no acute distress - EENT Eyes: Present: PERRLA, normal appearance - Neck Neck: Present: normal ROM - Respiratory Respiratory: bilateral: CTA (decreased b sounds at bases.) - Cardiovascular Heart sounds: normal: S1, S2 - Peripheral edema leg Peripheral Edema: bilateral: 1+ - Gastrointestinal Gastrointestinal Comment(s): non tender. General gastrointestinal: Present: decreased bowel sounds, distended, soft - Neurologic Neurologic Comment(s): [employer] grossly intact. - Labs CBC & Chem 7: 02/17/19 03:55 02/17/19 03:53 Labs: Abnormal Lab Results - Last 24 Hours (Table) 02/16/19 02/16/19 02/17/19 Range/Units 18:18 23:45 03:53 WBC (3.8-10.6) k/uL RBC (3.80-5.40) m/uL Hgb (11.4-16.0) gm/dL Hct (34.0-46.0) % MCHC (31.0-37.0) g/dL Neutrophils # (1.3-7.7) k/uL Lymphocytes # (1.0-4.8) k/uL Sodium 135 L (137-145) mmol/L BUN 41 H (7-17) mg/dL Creatinine 1.94 H (0.52-1.04) mg/dL Glucose 175 H (74-99) mg/dL POC Glucose (mg/dL) 242 H 181 H (75-99) mg/dL 02/17/19 02/17/19 02/17/19 Range/Units 03:55 06:02 11:56 WBC 13.8 H (3.8-10.6) k/uL RBC 3.46 L (3.80-5.40) m/uL Hgb 10.2 L (11.4-16.0) gm/dL Hct 33.1 L (34.0-46.0) % MCHC 30.9 L (31.0-37.0) g/dL Neutrophils # 11.6 H (1.3-7.7) k/uL Lymphocytes # 0.7 L (1.0-4.8) k/uL Sodium (137-145) mmol/L BUN (7-17) mg/dL Creatinine (0.52-1.04) mg/dL Glucose (74-99) mg/dL POC Glucose (mg/dL) 201 H 137 H (75-99) mg/dL Assessment and Plan Assessment: 1. JUAN, NONoliguric ATN, stable. 2. S/p exploratory Laparotomy, extensive lysis of adhesions, colectomy and end anastomosis, maintained on TPN 3. H/o R nephrectomy 4. A fib with RVR on cardizem drip 5. Neurogenic blagger, self catheterization as op, currently with box cath. PLAN Continue TPN. Monitor sodium, if it is lower, change sodium in TPN. Repeat labs in am.
--- NOTE | 2019-02-17 14:03 | P.PN ---
Subjective Progress Note Date: 02/17/19 Principal diagnosis: Acute bowel obstruction status post laparotomy with extensive lysis of adhesions and sigmoid colectomy and end colostomy postoperative day 5 This is a pleasant 83-year-old female patient admitted back on 02/07/2019 with complaints of constipation and abdominal discomfort. She had not moved her bowels for several days prior. Abdominal x-rays did show evidence of constipation. Fleet enema and MiraLAX at home were unsuccessful. She was subsequently admitted for abdominal bloating and discomfort. She was found to have a colon obstruction and yesterday had undergone exposure laparotomy, extensive lysis of adhesions, sigmoid colectomy, end colostomy done by Dr. Miller. She remained hypoxic postoperatively and was placed on BiPAP with an FiO2 of 80%. We're consulted for the same. No chest x-ray was done. She is seen today on the selective care unit. She is currently awake and alert in no acute distress. She is having some ongoing abdominal discomfort. She has a midline incision with maggy intact and a colostomy with stool present. She is currently on 6 L high flow nasal cannula and maintaining O2 saturation in the mid 90s. She denies any worsening shortness of breath, cough or congestion. Urine culture was positive for Klebsiella pneumoniae and E coli. Blood cultures had revealed no growth. White count 12.8. Hemoglobin 11.6. Sodium 148. Potassium 3.9. Creatinine 2.20. She has D5.45 running at 100 ML's per hour. She is currently on ceftriaxone and Flagyl. PPN and lipids have been ordered. The patient was having issues with atrial fibrillation preoperatively and was initially on a heparin drip. The plan from cardiology is to initiate Eliquis once cleared surgically. On today's evaluation of 02/14/2019 I was asked even with this patient and the patient was found to be more lethargic and short of breath. I the patient did she is relatively comfortable on oxygen at 4 L. Nevertheless, she states that she wants to and she is unable to take this ongoing treatment any further. In terms of her cardiac condition, she is in atrial fibrillation with rapid ventricular response and a current heart rate is around 120-140. She has a Murphy catheter urine output is in order of 30 mL an hour. She had a chest x-ray that showed increased opacification of the lung bases. Ultrasound of the chest was done that showed small pockets and based on the ultrasound these markers were not and minimal 4 thoracentesis. She is on Diprivan running at the rate of 75 mL an hour. She is also on IV fluids running at 75 mL an hour of normal saline. The patient has a positive fluid balance of 1.1 L. She has a creatinin e of 2.4 with a mean of 34. ABCDs not done this morning. She has a positive output and her colostomy bag. The surgical wound site is dry clean and intact. She is afebrile for now. on 02/16/2016, the patient is transferred to the intensive care unit. The patient's oxygen requirements went up yesterday and she is currently on15 L of oxygen by nasal cannula. I opted to bring her down to the ICU. The ultrasound of the chest was not conclusive in terms of fluid and based on that I ordered a CAT scan of the chest that was done without contrast and the CAT scan showed worsening atelectatic changes in lung bases, pneumonia cannot be completely excluded. The pleural effusions were very tiny and there were not and the blood for thoracentesis. Based on that, no intervention was done. Currently she is awake and alert. She is on a combination of IV Rocephin and Flagyl.er white cell count came up to 18. Her creatinine is up to 2.1. Creatinine is stable for now. The lactic acid level was low at 1. She is awake. She is alert. The colostomy is functioning and she has adequate output at this point in time.The patient still on TPN and were going to initiate someclear liquid diet today. Reevaluated today on 02/16/2019, patient remains in the ICU, O2 saturation is marginal, still requiring a high flow nasal cannula at 15 L/m, chest x-ray shows significant airspace disease and atelectasis with consolidation at the bases bilaterally right more so than left, hence I recommended that we use intermittently BiPAP with IPAP of 12 and EPAP of 4. Continues to have leukocytosis with WBC count of 14.5, hemoglobin is 10.1 lites are normal BUN is 41 creatinine 2.01. Close to her baseline since admission. Chest x-ray is quite concerning to me, and CT of the chest was also reviewed, patient has significant bibasilar consolidation and air bronchograms noted in both lungs bilaterally more so in the right lower lobe. On 02/17/2019 patient seen in follow-up in the intensive care unit, she is off BiPAP support currently, she is on 15 L, and her pulse ox is 92-94%, either tachycardic on a monitor, hemodynamically patient is stable, she states she feels short of breath, she has a congested cough, at times she is able to produce small amount of yellowish sputum, lung sounds are positive for rhonchi, and some wheezing, urine culture was positive for Klebsiella pneumonia and E. c rema, blood culture has shown no growth, patient's antibiotics have been simplified and currently patient is on Zosyn. White count is trending down, it is 13.8 on today's labs, hemoglobin is 10.2, sodium was 135, dorsiflexors were unremarkable, B1 is 41 creatinine is 1.94, profile is slightly improved, incentive spirometry effort is poor, and patient is only able to achieve 500 on the incentive spirometer today. Patient continues to be nothing by mouth, she continues on TPN, she was started on promotility agent, in the form of Reglan. Was no output from her ostomy overnight. Surgery is following. Objective - Vital Signs Vital signs: Vital Signs Temp 98.5 F 02/17/19 08:00 Pulse 112 H 02/17/19 13:30 Resp 29 H 02/17/19 12:00 BP 118/82 02/17/19 12:00 Pulse Ox 92 L 02/17/19 12:00 Intake & Output 02/16/19 02/17/19 02/17/19 18:59 06:59 18:59 Intake Total 1390.0 1136.5 610 Output Total 570 585 405 Balance 820.0 551.5 205 Weight 70.3 kg 72 kg Intake: IV 1165.0 1020 610 0.9 Normal saline 115 120 60 ACETAMINOPHEN IV (For NPO 100 ) 1,000 mg In Empty Bag 1 bag @ 400 mls/hr IVPB Q6HR [facility] Rx#:[id number] Piperacillin-Tazobactam 3 50.0 100 .375 gm In Sodium Chloride 0.9% 100 ml @ 25 mls/hr IVPB Q12HR [facility] Rx #:[id number] Potassium Acetate 20 meq 900 900 450 Magnesium Sulfate gm 1 gm Calcium Gluconate 1 gm Potassium Phosphate 10 mmol In Amino Acid 4.25%- D10w 1,000 ml @ 75 mls/hr IV .BY DURATION [facility] Rx#: [id number] Intake, IV Titration 125 116.5 Amount Diltiazem 125 mg In 125 116.5 Sodium Chloride 0.9% 100 ml @ 5 MG/HR 5 mls/hr IV .Q24H [facility] Rx#:[id number] Oral 100 Output: Urine 570 585 405 Other: Voiding Method Indwelling Catheter Indwelling Catheter Indwelling Catheter - Exam GENERAL EXAM: Alert, pleasant, 83-year-old white female, dyspneic with conversation, she is on 15 L per high flow nasal cannula, and her pulse ox is 91-93%, comfortable in no apparent distress. HEAD: Normocephalic/atraumatic. EYES: Normal reaction of pupils, equal size. Conjunctiva pink, sclera white. NOSE: Clear with pink turbinates. THROAT: No erythema or exudates. NECK: No masses, no JVD, no thyroid enlargement, no adenopathy. CHEST: No chest wall deformity. Symmetrical expansion. LUNGS: Equal air entry with mild rhonchi, diminished breath sounds CVS: Regular rate and rhythm, normal S1 and S2, no gallops, no murmurs, no rubs ABDOMEN: Soft, nontender. No hepatosplenomegaly, normal bowel sounds, no guarding or rigidity. Midline incision with maggy intact, colostomy without output EXTREMITIES: No clubbing, no edema, no cyanosis, 2+ pulses and upper and lower extremities. MUSCULOSKELETAL: Muscle strength and tone normal. SPINE: No scoliosis or deformity SKIN: No rashes CENTRAL NERVOUS SYSTEM: Alert and oriented -3. No focal deficits, tone is normal in all 4 extremities. PSYCHIATRIC: Alert and oriented -3. Appropriate affect. Intact judgment and insight. - Labs CBC & Chem 7: 02/17/19 03:55 02/17/19 03:53 Labs: Abnormal Lab Results - Last 24 Hours (Table) 02/16/19 02/16/19 02/17/19 Range/Units 18:18 23:45 03:53 WBC (3.8-10.6) k/uL RBC (3.80-5.40) m/uL Hgb (11.4-16.0) gm/dL Hct (34.0-46.0) % MCHC (31.0-37.0) g/dL Neutrophils # (1.3-7.7) k/uL Lymphocytes # (1.0-4.8) k/uL Sodium 135 L (137-145) mmol/L BUN 41 H (7-17) mg/dL Creatinine 1.94 H (0.52-1.04) mg/dL Glucose 175 H (74-99) mg/dL POC Glucose (mg/dL) 242 H 181 H (75-99) mg/dL 02/17/19 02/17/19 02/17/19 Range/Units 03:55 06:02 11:56 WBC 13.8 H (3.8-10.6) k/uL RBC 3.46 L (3.80-5.40) m/uL Hgb 10.2 L (11.4-16.0) gm/dL Hct 33.1 L (34.0-46.0) % MCHC 30.9 L (31.0-37.0) g/dL Neutrophils # 11.6 H (1.3-7.7) k/uL Lymphocytes # 0.7 L (1.0-4.8) k/uL Sodium (137-145) mmol/L BUN (7-17) mg/dL Creatinine (0.52-1.04) mg/dL Glucose (74-99) mg/dL POC Glucose (mg/dL) 201 H 137 H (75-99) mg/dL Assessment and Plan Plan: Assessment: #1. Acute bowel obstruction, status post exploratory laparotomy, extensive lysis of adhesions, sigmoid colectomy, and colostomy, postoperative day 5, #2. Acute hypoxic respiratory failure suspect aspiration pneumonia, and postoperative atelectasis, #3. Acute urinary tract infection secondary to Klebsiella pneumonia and E. coli #4. Chronic atrial fibrillation #5. Benign essential hypertension #6. History of hyperlipidemia #7. Acute on chronic renal failure patient has chronic kidney disease stage III at baseline Plan: Continue current antibiotics, patient is currently on Zosyn, encourage deep breathing and coughing, patient needs aggressive pulmonary toileting, continue with nebulized bronchodilators, incentive spirometry use, follow-up chest x-ray tomorrow, she remains on TPN, leukocytosis of following, we'll send the sputum for culture, continue DuoNeb nebulized treatments. We'll continue to follow I performed a history & physical examination of the patient and discussed their management with my nurse practitioner, Suzanne Kaur. I reviewed the nurse practitioner's note and agree with the documented findings and plan of care. Lung sounds are positive for diminished breath sounds with minimal rhonchi. The findings and the impression was discussed with the patient. I attest to the documentation by the nurse practitioner. Time with Patient: Less than 30
--- NOTE | 2019-02-17 18:31 | P.PN ---
Subjective Progress Note Date: 02/17/19 This 82-year-old female with history of hypertension and diastolic congestive heart failure and paroxysmal atrial fibrillation had a colectomy laparoscopically. Patient is not complaining of abdominal pain but complains of shortness of breath. She is in atrial fibrillation with controlled and corresponds. Her blood pressure is about 110. Patient is on Catapres along with metoprolol. She is also on Eliquis. I will increase the dose of the metoprolol and the heart rate is controlled, we'll may discontinue Cardizem. Lungs examination shows diminished breath sounds at bases. Heart is irregular. We'll follow the 02/17/2019: This patient is to intensive care unit. Patient still complaining of abdominal discomfort. Has been coughing and having some dysphagia difficulties. Patient remains in atrial fibrillation with controlled ventricular response. She is on metoprolol and also anti-cognition therapy with Eliquis 2.5 mg by mouth twice a day. Patient is status post abdominal surgery with removal of significant adhesions and also colectomy and colostomy. She is progressing slowly. Request pulmonary toilet. We'll continue current medical therapy. We will follow Objective - Vital Signs Vital signs: Vital Signs Temp 98.6 F 02/17/19 16:00 Pulse 128 H 02/17/19 17:00 Resp 19 02/17/19 17:00 BP 122/104 02/17/19 17:00 Pulse Ox 95 02/17/19 17:00 Intake & Output 02/16/19 02/17/19 02/17/19 18:59 06:59 18:59 Intake Total 1390.0 1136.5 1020 Output Total 570 585 745 Balance 820.0 551.5 275 Weight 70.3 kg 72 kg Intake: IV 1165.0 1020 795 0.9 Normal saline 115 120 95 ACETAMINOPHEN IV (For NPO 100 ) 1,000 mg In Empty Bag 1 bag @ 400 mls/hr IVPB Q6HR PRN Rx#:[id number] Piperacillin-Tazobactam 3 50.0 100 .375 gm In Sodium Chloride 0.9% 100 ml @ 25 mls/hr IVPB Q12HR [facility] Rx #:[id number] Potassium Acetate 20 meq 900 900 600 Magnesium Sulfate gm 1 gm Calcium Gluconate 1 gm Potassium Phosphate 10 mmol In Amino Acid 4.25%- D10w 1,000 ml @ 75 mls/hr IV .BY DURATION [facility] Rx#: [id number] Intake, IV Titration 125 116.5 225 Amount Diltiazem 125 mg In 125 116.5 Sodium Chloride 0.9% 100 ml @ 5 MG/HR 5 mls/hr IV .Q24H [facility] Rx#:[id number] Mvi, Adult No.4 with Vit 225 K 10 ml Trace (Conc-1Ml/ Dose) 1 ml Sodium Acetate 30 meq Calcium Gluconate 1 gm Potassium Phosphate 15 mmol In Amino Acid 4. 25%-D10w 1,000 ml @ 75 mls/hr IV .BY DURATION [facility] Rx#:[id number] Oral 100 Output: Urine 570 585 745 Other: Voiding Method Indwelling Catheter Indwelling Catheter Indwelling Catheter - Exam GENERAL EXAM: Patient is alert and oriented and doesn't appear to be in any acute distress with complaints of being short of breath HEENT: Normocephalic. Normal reaction of pupils, equal size, normal range of extraocular motion. No erythema or exudates in the throat. NECK: No masses, no nuchal rigidity. CHEST: No chest wall deformity. LUNGS: Diminished breath sounds at bases HEART: S1 and S2 normal with no audible mumurs or gallops. Regular rhythm, femorals equal on both sides.. ABDOMEN: No hepatosplenomegaly, normal bowel sounds, no guarding or rigidity. SKIN: No rashes CENTRAL NERVOUS SYSTEM: No focal deficits. EXTREMITIES: No cyanosis, clubbing or edema. - Labs CBC & Chem 7: 02/17/19 03:55 02/17/19 03:53 Labs: Abnormal Lab Results - Last 24 Hours (Table) 02/16/19 02/17/19 02/17/19 Range/Units 23:45 03:53 03:55 WBC 13.8 H (3.8-10.6) k/uL RBC 3.46 L (3.80-5.40) m/uL Hgb 10.2 L (11.4-16.0) gm/dL Hct 33.1 L (34.0-46.0) % MCHC 30.9 L (31.0-37.0) g/dL Neutrophils # 11.6 H (1.3-7.7) k/uL Lymphocytes # 0.7 L (1.0-4.8) k/uL Sodium 135 L (137-145) mmol/L BUN 41 H (7-17) mg/dL Creatinine 1.94 H (0.52-1.04) mg/dL Glucose 175 H (74-99) mg/dL POC Glucose (mg/dL) 181 H (75-99) mg/dL 02/17/19 02/17/19 Range/Units 06:02 11:56 WBC (3.8-10.6) k/uL RBC (3.80-5.40) m/uL Hgb (11.4-16.0) gm/dL Hct (34.0-46.0) % MCHC (31.0-37.0) g/dL Neutrophils # (1.3-7.7) k/uL Lymphocytes # (1.0-4.8) k/uL Sodium (137-145) mmol/L BUN (7-17) mg/dL Creatinine (0.52-1.04) mg/dL Glucose (74-99) mg/dL POC Glucose (mg/dL) 201 H 137 H (75-99) mg/dL Assessment and Plan (1) Essential hypertension Current Visit: Yes Status: Acute Code(s): I10 - ESSENTIAL (PRIMARY) HYPERTENSION SNOMED Code(s): 44634216 (2) Partial small bowel obstruction Current Visit: Yes Status: Acute Code(s): K56.600 - PARTIAL INTESTINAL OBSTRUCTION, UNSPECIFIED TO CAUSE SNOMED Code(s): 822605083 (3) Paroxysmal atrial fibrillation Current Visit: Yes Status: Acute Code(s): I48.0 - PAROXYSMAL ATRIAL FIBRILLATION SNOMED Code(s): 051652287 (4) Diastolic CHF Current Visit: Yes Status: Acute Code(s): I50.30 - UNSPECIFIED DIASTOLIC (CONGESTIVE) HEART FAILURE SNOMED Code(s): 286725856 Plan: Continue current dose of metoprolol along with anticoagulation. Needs pulmonary toilet, antibiotics. Will follow
[2019-02-17 18:33] LABS: Glucose,Whole Blood 168 mg/dL (75-99)
[2019-02-17] MEDS: DULoxetine HCL 60 MG CAPSULE.DR PO SCH (21:07)
[2019-02-17] MEDS: ATORVASTATIN 10 MG TAB PO SCH (21:08)
[2019-02-18 00:33] LABS: Glucose,Whole Blood 171 mg/dL (75-99)
[2019-02-18] MEDS: 1: MVI, ADULT NO.4 WITH VIT K 10 ML, TRACE (CONC-1ML/DOSE) 1 ML, SODIUM ACETATE 30 MEQ, IV SCH ×18 (00:33→17:09)
[2019-02-18] MEDS: METOCLOPRAMIDE 5 MG/ML 2 ML VIAL IVP SCH ×4 (00:36→17:08)
[2019-02-18] MEDS: INSULIN ASPART (NovoLOG) 100 UNIT/ML VIAL SQ SCH ×5 (00:37→21:49)
[2019-02-18 04:39] LABS: HGB 9.5 gm/dL (11.4-16.0); Hypochromasia Slight; MCH 29.7 pg (25.0-35.0); MCHC 31.5 g/dL (31.0-37.0); MCV 94.1 fL (80.0-100.0); Mean Platelet Volume 8.6; Platelet Count 241 k/uL (150-450); RBC 3.19 m/uL (3.80-5.40); RDW 14.5 % (11.5-15.5); WBC 12.6 k/uL (3.8-10.6)
[2019-02-18 04:51] LABS: Calcium 8.6 mg/dL (8.4-10.2); Phosphorus 3.2 mg/dL (2.5-4.5); Potassium 4.1 mmol/L (3.5-5.1)
[2019-02-18 05:29] LABS: Glucose,Whole Blood 186 mg/dL (75-99)
[2019-02-18 05:56] LABS: Glucose,Whole Blood 177 mg/dL (75-99)
--- NOTE | 2019-02-18 07:29 | XR ---
EXAMINATION TYPE: XR chest 1V portable DATE OF EXAM: 02/18/2019 HISTORY: Shortness of breath. COMPARISON: 02/16/2019 TECHNIQUE: Single view of the chest is submitted. FINDINGS: Demonstrated are scattered senescent parenchymal change. Basilar infiltrates and pleural effusions persist. Chronic elevation right hemidiaphragm. The heart is stable. Hilar and mediastinal structures are within normal limits. Degenerative changes are seen of the dorsal spine. IMPRESSION: 1. Basilar infiltrates and pleural effusions persist. Chronic elevation right hemidiaphragm.
[2019-02-18] MEDS: BUDESONIDE 0.5 MG/2 ML NEBU INHALATION SCH ×2 (08:14→18:46)
[2019-02-18] MEDS: IPRATROPIUM-ALBUTEROL 3 ML NEB INHALATION SCH ×4 (08:14→18:46)
[2019-02-18] MEDS: MORPHINE SULFATE 4 MG/ML SYRINGE IVP PRN (08:32)
[2019-02-18] MEDS: METOPROLOL TARTRATE 25 MG TAB PO SCH ×2 (08:32→09:43)
[2019-02-18] MEDS: PIPERACILLIN-TAZOBACTAM 3.375 GM in SODIUM CHLORIDE 0.9% 100 ML IVPB SCH ×2 (08:32→20:23)
[2019-02-18] MEDS ORDERED: METOPROLOL TARTRATE 25 MG TAB PO STA (08:57)
--- NOTE | 2019-02-18 09:40 | P.PN ---
Subjective Progress Note Date: 02/18/19 This 82-year-old female with history of hypertension and diastolic congestive heart failure and paroxysmal atrial fibrillation had a colectomy laparoscopically. Patient is not complaining of abdominal pain but complains of shortness of breath. She is in atrial fibrillation with controlled and corresponds. Her blood pressure is about 110. Patient is on Catapres along with metoprolol. She is also on Eliquis. I will increase the dose of the metoprolol and the heart rate is controlled, we'll may discontinue Cardizem. Lungs examination shows diminished breath sounds at bases. Heart is irregular. We'll follow the 02/17/2019: This patient is to intensive care unit. Patient still complaining of abdominal discomfort. Has been coughing and having some dysphagia difficulties. Patient remains in atrial fibrillation with controlled ventricular response. She is on metoprolol and also anti-cognition therapy with Eliquis 2.5 mg by mouth twice a day. Patient is status post abdominal surgery with removal of significant adhesions and also colectomy and colostomy. She is progressing slowly. Request pulmonary toilet. We'll continue current medical therapy. We will follow. 02/18/2019:. Patient claims she is feeling slightly better. Patient is in atrial fibrillation with moderate to rapid ventricle response. I'm going to increase the dose of the metoprolol. Patient is on anticoagulation therapy. However, patient is having blood in the urine. Urology is could evaluate the patient. We'll going to hold anti-cognition therapy temporarily. Rest of the management as per the surgeon's Objective - Vital Signs Vital signs: Vital Signs Temp 97.8 F 02/18/19 08:00 Pulse 113 H 02/18/19 09:00 Resp 18 02/18/19 09:00 BP 131/87 02/18/19 09:00 Pulse Ox 97 02/18/19 09:00 Intake & Output 02/17/19 02/18/19 02/18/19 18:59 06:59 18:59 Intake Total 2141 980 240 Output Total 785 815 175 Balance 1356 165 65 Weight 69.5 kg Intake: IV 800 980 240 0.9 Normal saline 100 55 15 Mvi, Adult No.4 with Vit 525 225 K 10 ml Trace (Conc-1Ml/ Dose) 1 ml Sodium Acetate 30 meq Calcium Gluconate 1 gm Potassium Phosphate 15 mmol In Amino Acid 4. 25%-D10w 1,000 ml @ 75 mls/hr IV .BY DURATION [facility] Rx#:[id number] Piperacillin-Tazobactam 3 100 100 .375 gm In Sodium Chloride 0.9% 100 ml @ 25 mls/hr IVPB Q12HR [facility] Rx #:[id number] Potassium Acetate 20 meq 600 300 Magnesium Sulfate gm 1 gm Calcium Gluconate 1 gm Potassium Phosphate 10 mmol In Amino Acid 4.25%- D10w 1,000 ml @ 75 mls/hr IV .BY DURATION [facility] Rx#: [id number] Intake, IV Titration 1341 Amount Mvi, Adult No.4 with Vit 1341 K 10 ml Trace (Conc-1Ml/ Dose) 1 ml Sodium Acetate 30 meq Calcium Gluconate 1 gm Potassium Phosphate 15 mmol In Amino Acid 4. 25%-D10w 1,000 ml @ 75 mls/hr IV .BY DURATION [facility] Rx#:[id number] Output: Urine 785 815 175 Other: Voiding Method Indwelling Catheter Indwelling Catheter - Exam GENERAL EXAM: Patient is alert and oriented and doesn't appear to be in any acute distress with complaints of being short of breath HEENT: Normocephalic. Normal reaction of pupils, equal size, normal range of extraocular motion. No erythema or exudates in the throat. NECK: No masses, no nuchal rigidity. CHEST: No chest wall deformity. LUNGS: Diminished breath sounds at bases HEART: S1 and S2 normal with no audible mumurs or gallops. Regular rhythm, femorals equal on both sides.. ABDOMEN: No hepatosplenomegaly, normal bowel sounds, no guarding or rigidity. SKIN: No rashes CENTRAL NERVOUS SYSTEM: No focal deficits. EXTREMITIES: No cyanosis, clubbing or edema. - Labs CBC & Chem 7: 02/18/19 04:24 02/18/19 04:22 Labs: Abnormal Lab Results - Last 24 Hours (Table) 02/17/19 02/17/19 02/18/19 Range/Units 11:56 18:32 00:31 WBC (3.8-10.6) k/uL RBC (3.80-5.40) m/uL Hgb (11.4-16.0) gm/dL Hct (34.0-46.0) % Sodium (137-145) mmol/L Carbon Dioxide (22-30) mmol/L BUN (7-17) mg/dL Creatinine (0.52-1.04) mg/dL Glucose (74-99) mg/dL POC Glucose (mg/dL) 137 H 168 H 171 H (75-99) mg/dL 02/18/19 02/18/19 02/18/19 Range/Units 04:22 04:24 05:27 WBC 12.6 H (3.8-10.6) k/uL RBC 3.19 L (3.80-5.40) m/uL Hgb 9.5 L (11.4-16.0) gm/dL Hct 30.0 L (34.0-46.0) % Sodium 136 L (137-145) mmol/L Carbon Dioxide 21 L (22-30) mmol/L BUN 42 H (7-17) mg/dL Creatinine 1.78 H (0.52-1.04) mg/dL Glucose 145 H (74-99) mg/dL POC Glucose (mg/dL) 186 H (75-99) mg/dL 02/18/19 Range/Units 05:55 WBC (3.8-10.6) k/uL RBC (3.80-5.40) m/uL Hgb (11.4-16.0) gm/dL Hct (34.0-46.0) % Sodium (137-145) mmol/L Carbon Dioxide (22-30) mmol/L BUN (7-17) mg/dL Creatinine (0.52-1.04) mg/dL Glucose (74-99) mg/dL POC Glucose (mg/dL) 177 H (75-99) mg/dL Assessment and Plan (1) Essential hypertension Current Visit: Yes Status: Acute Code(s): I10 - ESSENTIAL (PRIMARY) HYPERTENSION SNOMED Code(s): 69497742 (2) Partial small bowel obstruction Current Visit: Yes Status: Acute Code(s): K56.600 - PARTIAL INTESTINAL OBSTRUCTION, UNSPECIFIED TO CAUSE SNOMED Code(s): 792135949 (3) Paroxysmal atrial fibrillation Current Visit: Yes Status: Acute Code(s): I48.0 - PAROXYSMAL ATRIAL FIBRILLATION SNOMED Code(s): 721871697 (4) Diastolic CHF Current Visit: Yes Status: Acute Code(s): I50.30 - UNSPECIFIED DIASTOLIC (CONGESTIVE) HEART FAILURE SNOMED Code(s): 020613900 Plan: Continue current dose of metoprolol along with anticoagulation. Needs pulmonary toilet, antibiotics. Will follow. 02/18/2019: Patient's heart rate is still high. We'll increase the dose of the metoprolol to 50 mg by mouth twice a day. Patient is having blood in the urine. We'll going to hold anticoagulation therapy until seen and cleared by urology
[2019-02-18] MEDS: METOPROLOL TARTRATE 50 MG TAB PO SCH ×2 (09:44→20:23)
[2019-02-18] MEDS: APIXABAN 2.5 MG TABLET PO SCH ×2 (09:44→19:46)
--- NOTE | 2019-02-18 09:51 | P.PN ---
Progress Note - Text Progress Note Date: 02/18/19 The patient remains in the ICU. She still has some complaints of abdominal pain. Her pulmonary status improving. On exam her vital signs appear stable. Her abdomen is soft. Colostomy is functioning there is gas and stool possibly back. Patient will start on a full liquid diet. We will discontinue TPN today.
--- NOTE | 2019-02-18 11:10 | P.PN ---
Subjective Progress Note Date: 02/18/19 Principal diagnosis: Acute bowel obstruction status post laparotomy extensive was of adhesions and sigmoid colectomy and end colostomy postoperative day #6 This is a pleasant 83-year-old female patient admitted back on 02/07/2019 with complaints of constipation and abdominal discomfort. She had not moved her bowels for several days prior. Abdominal x-rays did show evidence of constipation. Fleet enema and MiraLAX at home were unsuccessful. She was subsequently admitted for abdominal bloating and discomfort. She was found to have a colon obstruction and yesterday had undergone exposure laparotomy, extensive lysis of adhesions, sigmoid colectomy, end colostomy done by Dr. Miller. She remained hypoxic postoperatively and was placed on BiPAP with an FiO2 of 80%. We're consulted for the same. No chest x-ray was done. She is seen today on the selective care unit. She is currently awake and alert in no acute distress. She is having some ongoing abdominal discomfort. She has a midline incision with maggy intact and a colostomy with stool present. She is currently on 6 L high flow nasal cannula and maintaining O2 saturation in the mid 90s. She denies any worsening shortness of breath, cough or congestion. Urine culture was positive for Klebsiella pneumoniae and E coli. Blood cultures had revealed no growth. White count 12.8. Hemoglobin 11.6. Sodium 148. Potassium 3.9. Creatinine 2.20. She has D5.45 running at 100 ML's per hour. She is currently on ceftriaxone and Flagyl. PPN and lipids have been ordered. The patient was having issues with atrial fibrillation preoperatively and was initially on a heparin drip. The plan from cardiology is to initiate Eliquis once cleared surgically. On today's evaluation of 02/14/2019 I was asked even with this patient and the patient was found to be more lethargic and short of breath. I the patient did she is relatively comfortable on oxygen at 4 L. Nevertheless, she states that she wants to and she is unable to take this ongoing treatment any further. In terms of her cardiac condition, she is in atrial fibrillation with rapid ventricular response and a current heart rate is around 120-140. She has a Murphy catheter urine output is in order of 30 mL an hour. She had a chest x-ray that showed increased opacification of the lung bases. Ultrasound of the chest was done that showed small pockets and based on the ultrasound these markers were not and minimal 4 thoracentesis. She is on Diprivan running at the rate of 75 mL an hour. She is also on IV fluids running at 75 mL an hour of normal saline. The patient has a positive fluid balance of 1.1 L. She has a creatinine of 2.4 with a mean of 34. ABCDs not done this morning. She has a positive output and her colostomy bag. The surgical wound site is dry clean and intact. She is afebrile for now. on 02/16/2016, the patient is transferred to the intensive care unit. The patient's oxygen requirements went up yesterday and she is currently on15 L of oxygen by nasal cannula. I opted to bring her down to the ICU. The ultrasound of the chest was not conclusive in terms of fluid and based on that I ordered a CAT scan of the chest that was done without contrast and the CAT scan showed worsening atelectatic changes in lung bases, pneumonia cannot be completely excluded. The pleural effusions were very tiny and there were not and the blood for thoracentesis. Based on that, no intervention was done. Currently she is awake and alert. She is on a combination of IV Rocephin and Flagyl.er white cell count came up to 18. Her creatinine is up to 2.1. Creatinine is stable for now. The lactic acid level was low at 1. She is awake. She is alert. The colostomy is functioning and she has adequate output at this point in time.The patient still on TPN and were going to initiate someclear liquid diet today. Reevaluated today on 02/16/2019, patient remains in the ICU, O2 saturation is marginal, still requiring a high flow nasal cannula at 15 L/m, chest x-ray shows significant airspace disease and atelectasis with consolidation at the bases bilaterally right more so than left, hence I recommended that we use intermittently BiPAP with IPAP of 12 and EPAP of 4. Continues to have leukocytosis with WBC count of 14.5, hemoglobin is 10.1 lites are normal BUN is 41 creatinine 2.01. Close to her baseline since admission. Chest x-ray is quite concerning to me, and CT of the chest was also reviewed, patient has significant bibasilar consolidation and air bronchograms noted in both lungs bilaterally more so in the right lower lobe. On 02/17/2019 patient seen in follow-up in the intensive care unit, she is off BiPAP support currently, she is on 15 L, and her pulse ox is 92-94%, either tachycardic on a monitor, hemodynamically patient is stable, she states she feels short of breath, she has a congested cough, at times she is able to produce small amount of yellowish sputum, lung sounds are positive for rhonchi, and some wheezing, urine culture was positive for Klebsiella pneumonia and E. coli, blood culture has shown no growth, patient's antibiotics have been simplified and currently patient is on Zosyn. White count is trending down, it is 13.8 on today's labs, hemoglobin is 10.2, sodium was 135, dorsiflexors were unremarkable, B1 is 41 creatinine is 1.94, profile is slightly improved, inc entive spirometry effort is poor, and patient is only able to achieve 500 on the incentive spirometer today. Patient continues to be nothing by mouth, she continues on TPN, she was started on promotility agent, in the form of Reglan. Was no output from her ostomy overnight. Surgery is following. Reevaluated today on 02/18/2019, patient is still in the intensive care unit, remains on a high flow nasal cannula, she used BiPAP last night, O2 saturation remains marginal in the low 90s. Patient is hemodynamically stable, she feels fine, she seems to have a better cough today compared to the last couple of days, chest x-ray is showing slightly better aeration of the bases of her lungs, nonetheless she continues to have atelectasis/infiltrates mostly in the right lower lobe, and she has a chronically elevated right hemidiaphragm. WBC count is 12.6, left lites are normal renal profile is improving BUN is 42 creatinine is down to 1.78 compared to 1.94 yesterday and 2.19 few days ago. Her pro calcitonin level was elevated, hence the patient was kept on antibiotics for presumptive right lower lobe pneumonia. Presently on Zosyn. Objective - Vital Signs Vital signs: Vital Signs Temp 97.8 F 02/18/19 08:00 Pulse 113 H 02/18/19 09:00 Resp 18 02/18/19 09:00 BP 131/87 02/18/19 09:00 Pulse Ox 97 02/18/19 09:00 Intake & Output 02/17/19 02/18/19 02/18/19 18:59 06:59 18:59 Intake Total 2141 980 240 Output Total 785 815 175 Balance 1356 165 65 Weight 69.5 kg Intake: IV 800 980 240 0.9 Normal saline 100 55 15 Mvi, Adult No.4 with Vit 525 225 K 10 ml Trace (Conc-1Ml/ Dose) 1 ml Sodium Acetate 30 meq Calcium Gluconate 1 gm Potassium Phosphate 15 mmol In Amino Acid 4. 25%-D10w 1,000 ml @ 75 mls/hr IV .BY DURATION [facility] Rx#:[id number] Piperacillin-Tazobactam 3 100 100 .375 gm In Sodium Chloride 0.9% 100 ml @ 25 mls/hr IVPB Q12HR [facility] Rx #:[id number] Potassium Acetate 20 meq 600 300 Magnesium Sulfate gm 1 gm Calcium Gluconate 1 gm Potassium Phosphate 10 mmol In Amino Acid 4.25%- D10w 1,000 ml @ 75 mls/hr IV .BY DURATION [facility] Rx#: [id number] Intake, IV Titration 1341 Amount Mvi, Adult No.4 with Vit 1341 K 10 ml Trace (Conc-1Ml/ Dose) 1 ml Sodium Acetate 30 meq Calcium Gluconate 1 gm Potassium Phosphate 15 mmol In Amino Acid 4. 25%-D10w 1,000 ml @ 75 mls/hr IV .BY DURATION [facility] Rx#:[id number] Output: Urine 785 815 175 Other: Voiding Method Indwelling Catheter Indwelling Catheter Indwelling Catheter - Exam GENERAL EXAM: Revealed 83-year-old female, pleasant, remains on 15 L high flow nasal cannula. Head: Atraumatic normocephalic. EENT: PERRLA, EOMI, neck disc, dry mucous membranes, throat is clear. No neck masses no JVD no stridor. CHEST: No chest wall deformity. LUNGS: diminished breath sounds at the bases, mostly at the right base. no rhonchi and no wheezes.. CVS: S1 and S2 normal with no audible murmur, regular rhythm. ABDOMEN: Midline incision with maggy intact, colostomy functioning. SPINE: No scoliosis or deformity SKIN: No rashes CENTRAL NERVOUS SYSTEM: No focal deficits, tone is normal in all 4 extremities. EXTREMITIES: There is no peripheral edema. No clubbing, no cyanosis. Peripheral pulses are intact. - Labs CBC & Chem 7: 02/18/19 04:24 02/18/19 04:22 Labs: Abnormal Lab Results - Last 24 Hours (Table) 02/17/19 02/17/19 02/18/19 Range/Units 11:56 18:32 00:31 WBC (3.8-10.6) k/uL RBC (3.80-5.40) m/uL Hgb (11.4-16.0) gm/dL Hct (34.0-46.0) % Sodium (137-145) mmol/L Carbon Dioxide (22-30) mmol/L BUN (7-17) mg/dL Creatinine (0.52-1.04) mg/dL Glucose (74-99) mg/dL POC Glucose (mg/dL) 137 H 168 H 171 H (75-99) mg/dL 02/18/19 02/18/19 02/18/19 Range/Units 04:22 04:24 05:27 WBC 12.6 H (3.8-10.6) k/uL RBC 3.19 L (3.80-5.40) m/uL Hgb 9.5 L (11.4-16.0) gm/dL Hct 30.0 L (34.0-46.0) % Sodium 136 L (137-145) mmol/L Carbon Dioxide 21 L (22-30) mmol/L BUN 42 H (7-17) mg/dL Creatinine 1.78 H (0.52-1.04) mg/dL Glucose 145 H (74-99) mg/dL POC Glucose (mg/dL) 186 H (75-99) mg/dL 02/18/19 Range/Units 05:55 WBC (3.8-10.6) k/uL RBC (3.80-5.40) m/uL Hgb (11.4-16.0) gm/dL Hct (34.0-46.0) % Sodium (137-145) mmol/L Carbon Dioxide (22-30) mmol/L BUN (7-17) mg/dL Creatinine (0.52-1.04) mg/dL Glucose (74-99) mg/dL POC Glucose (mg/dL) 177 H (75-99) mg/dL Assessment and Plan Assessment: Impression: acute bowel obstruction, status post exploratory laparotomy, extensive lysis of adhesions, sigmoid colectomy, and colostomy postoperative day #6 Acute hypoxic respiratory failure suspect aspiration pneumonia, and postoperative atelectasis. Acute urinary tract infection secondary to Klebsiella pneumoniae and E. coli. Chronic atrial fibrillation. Benign essential hypertension. History of hyperlipidemia. Acute on chronic renal failure, patient has chronic renal failure stage III. Recommendation: Continue antibiotics/Zosyn Continue GI and DVT prophylaxis Continue cardiac meds Continue to advance diet as tolerated. Intermittent use of BiPAP. Strongly recommended to the patient. In the meanti me continue high flow nasal cannula. Incentive spirometry. Strongly advised, and the patient was instructed to use incentive spirometer. Aggressive pulmonary toileting. Prognosis remains guarded, patient will remain in the ICU, pulmonary status seems to be relatively concerning. We'll continue to follow. Time with Patient: Less than 30
[2019-02-18 11:44] LABS: Glucose,Whole Blood 164 mg/dL (75-99)
[2019-02-18] MEDS: HYDROcodone/APAP 5-325MG 1 EACH TAB PO PRN ×2 (12:34→20:22)
--- NOTE | 2019-02-18 12:52 | P.PN ---
Progress Note - Text Progress Note Date: 02/18/19 The patient has been noted to have increasing gross hematuria or the last several days. Small clots have been irrigated from the bladder. The patient's anticoagulants will be held. Dr. Munoz will reevaluate her tomorrow.
--- NOTE | 2019-02-18 13:14 | P.PN ---
Subjective Progress Note Date: 02/18/19 This is a progress note date of service 02/18/2019. Dictation by Dr. Engel. Patient seen [id number] evaluated. Underlying hematuria in the Murphy catheter gross. Vital sign temperature 97.8 oral F her heart rate was atrial fibrillation with rapid ventricular response in a.m. and continued through until lunchtime. Respiratory rate between 23 and 18 She had blood pressure 131/87. Pulse ox 97% on high flow 15 L/m, history of atelectasis and using BiPAP. Currently she is on reclining chair with her back and right hip arthritis post nebulization. On exam [id number] Patient is conscious alert oriented, her adopted daughter has visiting her. Patient seen today by Dr. surgery Dr. Rao the surgeon and advance her diet to full liquid diet. Patient has been monitored. Patient seen also by Dr. Shea urology with underlying hematuria, patient has left kidney not function, right kidney with history of hydronephrosis hydroureter. She is on self-catheterization for neurogenic bladder and she currently on Murphy catheter. Laboratory: WBC 12.7 hemoglobin 9.5 hematocrit 30.0 with the slightly hypochromasia. Chemistry sodium 136 potassium 4.1, chloride 106, carbon dioxide 21, anion gap is 9 and BUN 42 creatinine 1.78 which is improved. Her EGFR 26. Hypoglycemia secondary to TPN patient never been diabetic in the past., POC glucose was fluctuating and covered with insulin to scale the highest 186, currently 164. Calcium, phosphorus, magnesium normalized. Patient is receiving Eliquis and will be temporary decreased with the urine hematuria9 Currently patient on clonidine patch transdermal 0.3, also on diltiazem drip for the atrial fibrillation, duloxetine HCl 60 mg by mouth daily at bedtime for depression, she is on fat emulsion intravenously 20% lipid. She is also on insulin to scale aspart NovoLog. She is on Reglan 10 mg IV push every 6 hours with the distention of the small bowel with ileus She is on metoprolol currently 50 mg twice a day adjusted by the cardiology and phosphorus protocol and potassium protocol and morphine sulfate; tazobactam She is on inhalation nebulizers albuterol as well. HEENT negative, neck was supple no JVD, chest was improving and radiation with the underlying lower lung atelectasis versus aspiration pneumonitis. Heart . With a tibial fibrillation. irregular irregularities Abdomen: Distended still symptomatic however patient started to have a stool in the pouch and this is gas to be passing out to decompress her abdomen. Extremities no edema and inflatable of thrombotic stocking. Assessment and plan: . Hold anticoagulant , continue the current treatment with the plan for advance of the diet per surgeon. In regard of hydromorphone is continued can cause neurotoxicity especially for his renal function and her morphine used only. Objective - Vital Signs Vital signs: Vital Signs Temp 97.8 F 02/18/19 08:00 Pulse 127 H 02/18/19 11:37 Resp 18 02/18/19 09:00 BP 131/87 02/18/19 09:00 Pulse Ox 97 02/18/19 09:00 Intake & Output 02/17/19 02/18/19 02/18/19 18:59 06:59 18:59 Intake Total 2141 980 240 Output Total 785 815 175 Balance 1356 165 65 Weight 69.5 kg Intake: IV 800 980 240 0.9 Normal saline 100 55 15 Mvi, Adult No.4 with Vit 525 225 K 10 ml Trace (Conc-1Ml/ Dose) 1 ml Sodium Acetate 30 meq Calcium Gluconate 1 gm Potassium Phosphate 15 mmol In Amino Acid 4. 25%-D10w 1,000 ml @ 75 mls/hr IV .BY DURATION [facility] Rx#:[id number] Piperacillin-Tazobactam 3 100 100 .375 gm In Sodium Chloride 0.9% 100 ml @ 25 mls/hr IVPB Q12HR [facility] Rx #:[id number] Potassium Acetate 20 meq 600 300 Magnesium Sulfate gm 1 gm Calcium Gluconate 1 gm Potassium Phosphate 10 mmol In Amino Acid 4.25%- D10w 1,000 ml @ 75 mls/hr IV .BY DURATION [facility] Rx#: [id number] Intake, IV Titration 1341 Amount Mvi, Adult No.4 with Vit 1341 K 10 ml Trace (Conc-1Ml/ Dose) 1 ml Sodium Acetate 30 meq Calcium Gluconate 1 gm Potassium Phosphate 15 mmol In Amino Acid 4. 25%-D10w 1,000 ml @ 75 mls/hr IV .BY DURATION [facility] Rx#:[id number] Output: Urine 785 815 175 Other: Voiding Method Indwelling Catheter Indwelling Catheter Indwelling Catheter - Labs CBC & Chem 7: 02/18/19 04:24 02/18/19 04:22 Labs: Abnormal Lab Results - Last 24 Hours (Table) 02/17/19 02/18/19 02/18/19 Range/Units 18:32 00:31 04:22 WBC (3.8-10.6) k/uL RBC (3.80-5.40) m/uL Hgb (11.4-16.0) gm/dL Hct (34.0-46.0) % Sodium 136 L (137-145) mmol/L Carbon Dioxide 21 L (22-30) mmol/L BUN 42 H (7-17) mg/dL Creatinine 1.78 H (0.52-1.04) mg/dL Glucose 145 H (74-99) mg/dL POC Glucose (mg/dL) 168 H 171 H (75-99) mg/dL 02/18/19 02/18/19 02/18/19 Range/Units 04:24 05:27 05:55 WBC 12.6 H (3.8-10.6) k/uL RBC 3.19 L (3.80-5.40) m/uL Hgb 9.5 L (11.4-16.0) gm/dL Hct 30.0 L (34.0-46.0) % Sodium (137-145) mmol/L Carbon Dioxide (22-30) mmol/L BUN (7-17) mg/dL Creatinine (0.52-1.04) mg/dL Glucose (74-99) mg/dL POC Glucose (mg/dL) 186 H 177 H (75-99) mg/dL 02/18/19 Range/Units 11:43 WBC (3.8-10.6) k/uL RBC (3.80-5.40) m/uL Hgb (11.4-16.0) gm/dL Hct (34.0-46.0) % Sodium (137-145) mmol/L Carbon Dioxide (22-30) mmol/L BUN (7-17) mg/dL Creatinine (0.52-1.04) mg/dL Glucose (74-99) mg/dL POC Glucose (mg/dL) 164 H (75-99) mg/dL
[2019-02-18] MEDS: FAT EMULSION 20% 250 ML IV SCH (13:18)
--- NOTE | 2019-02-18 13:45 | PN ---
PROGRESS NOTE Patient is seen for followup for acute kidney injury. Renal function has been slowly improving. Patient continues to complain of abdominal pain and she is n.p.o. She has had some output from her colostomy. PHYSICAL EXAMINATION: On examination, blood pressure was 131/87, heart rate 113 per minute, she is afebrile. Examination of the heart S1, S2. Examination of the lungs, bilateral breath sounds are heard. Abdomen is soft, tender. Examination of lower extremities shows edema trace bilaterally. CHARGER TESTER exam grossly intact. LABS: Show sodium 136, potassium 4.1, BUN 42, creatinine 1.78, hemoglobin 9.5 g/dL. ASSESSMENT: 1. Acute kidney injury, nonoliguric, currently improved. 2. Status post explorative laparotomy, colectomy, extensive lysis of adhesions. 3. Previous history of right nephrectomy. 4. Hematuria, Eliquis is on hold. Urology has been consulted. 5. Atrial fibrillation with rapid ventricular response. 6. History of neurogenic bladder with self catheterization as outpatient, currently with Murphy catheter. PLAN: Continue with the TPN. Hold off on the Eliquis for a couple of days. Repeat labs in a.m. Continue to monitor electrolytes. MMODL / IJN: [id number] /
[2019-02-18] MEDS: cloNIDine 0.3 MG/24HR PATCH TRANSDERM SCH (16:43)
[2019-02-18 16:56] LABS: Glucose,Whole Blood 268 mg/dL (75-99)
[2019-02-18] MEDS: ATORVASTATIN 10 MG TAB PO SCH (20:23)
[2019-02-18] MEDS: DULoxetine HCL 60 MG CAPSULE.DR PO SCH (20:23)
[2019-02-18 20:55] LABS: Glucose,Whole Blood 217 mg/dL (75-99)
[2019-02-19] MEDS: METOCLOPRAMIDE 5 MG/ML 2 ML VIAL IVP SCH ×2 (00:07→07:01)
[2019-02-19] MEDS ORDERED: METOPROLOL TARTRATE 50 MG TAB PO STA (01:15)
[2019-02-19] MEDS: 1: MVI, ADULT NO.4 WITH VIT K 10 ML, TRACE (CONC-1ML/DOSE) 1 ML, SODIUM ACETATE 30 MEQ, IV SCH ×28 (04:44→17:35)
[2019-02-19 05:58] LABS: Basophils % (A) 0 %; Eosinophils # (A) 0.4 k/uL (0-0.7); Eosinophils % (A) 3 %; HCT 29.4 % (34.0-46.0); HGB 9.6 gm/dL (11.4-16.0); Hypochromasia Slight; Lymphocytes # (A) 0.9 k/uL (1.0-4.8); Lymphocytes % (A) 6 %; MCH 30.5 pg (25.0-35.0); MCHC 32.5 g/dL (31.0-37.0); MCV 93.8 fL (80.0-100.0); Monocytes # (A) 0.9 k/uL (0-1.0); Monocytes % (A) 6 %; Neutrophils # (A) 12.2 k/uL (1.3-7.7); Neutrophils % (A) 82 %; Platelet Count 352 k/uL (150-450); RBC 3.14 m/uL (3.80-5.40); RDW 14.2 % (11.5-15.5); WBC 14.9 k/uL (3.8-10.6)
[2019-02-19 06:22] LABS: Calcium 8.6 mg/dL (8.4-10.2); Magnesium 1.8 mg/dL (1.6-2.3); Phosphorus 4.3 mg/dL (2.5-4.5); Potassium 4.1 mmol/L (3.5-5.1)
[2019-02-19] MEDS ORDERED: Magnesium Replacement Protocol 1 EACH MISC MISCELLANE PRN (06:28)
--- NOTE | 2019-02-19 06:56 | XR ---
EXAMINATION TYPE: XR chest 1V portable DATE OF EXAM: 02/19/2019 COMPARISON: Prior chest x-ray 02/18/2018 HISTORY: Pneumonia TECHNIQUE: Single frontal view of the chest is obtained. FINDINGS: Right hemidiaphragm is elevated. Aorta is dense. Heart remains enlarged. Bibasilar increas ed density persists. No pneumothorax. Patient is rotated and there are overlying cardiac leads, tubin g. IMPRESSION: There may be basilar effusion, atelectasis, correlate to exclude pneumonia.
[2019-02-19 06:58] LABS: Glucose,Whole Blood 134 mg/dL (75-99)
[2019-02-19] MEDS: MAGNESIUM SULFATE-D5W PMX 1 GM in DEXTROSE/WATER 1 100ML.BAG IVPB SCH ×2 (07:01→08:10)
[2019-02-19] MEDS: INSULIN ASPART (NovoLOG) 100 UNIT/ML VIAL SQ SCH ×4 (07:01→21:14)
[2019-02-19] MEDS: IPRATROPIUM-ALBUTEROL 3 ML NEB INHALATION SCH ×4 (07:04→21:37)
[2019-02-19] MEDS: BUDESONIDE 0.5 MG/2 ML NEBU INHALATION SCH ×2 (07:08→21:41)
[2019-02-19] MEDS: PIPERACILLIN-TAZOBACTAM 3.375 GM in SODIUM CHLORIDE 0.9% 100 ML IVPB SCH ×2 (08:10→21:15)
[2019-02-19] MEDS: HYDROcodone/APAP 5-325MG 1 EACH TAB PO PRN (08:10)
[2019-02-19] MEDS: METOPROLOL TARTRATE 50 MG TAB PO SCH ×3 (08:11→21:14)
[2019-02-19] MEDS: APIXABAN 2.5 MG TABLET PO SCH ×2 (08:42→21:18)
--- NOTE | 2019-02-19 09:29 | P.PN ---
<Siobhan Dugan Tiffany - Last Filed: 02/19/19 09:24> Subjective Progress Note Date: 02/19/19 CHIEF COMPLAINT: Abdominal pain HISTORY OF PRESENT ILLNESS: patient is status post exploratory laparotomy, extensive lysis of adhesions, sigmoid colectomy, and end colostomy. Patient examined at the bedside in the intensive care unit. patient is awake and alert. She denies abdominal pain. Patient is tolerating full liquid diet. Denies nausea or vomiting. Nursing reports patient ate approximately 30% of her breakfast tray this morning. She remains on PPN. WBC 14.9. Hemoglobin 9.6. PHYSICAL EXAM: VITAL SIGNS: Reviewed. GENERAL: Well-developed in no acute distress. HEENT: No sclera icterus. Extraocular movements grossly intact. Moist buccal mucosa. Head is atraumatic, normocephalic. ABDOMEN: Soft. Nondistended. Dressing to abdomen clean dry intact. CHAPO drain with serous drainage. Ostomy with brown liquid stool noted. NEUROLOGIC: Awake and alert. ASSESSMENT: 1. Abdominal pain, status post exploratory laparotomy, extensive lysis of adhesions, sigmoid colectomy, and end colostomy PLAN: Continue daily dressing changes. Aquacel silver to open aspect of midline incision Monitor CHAPO drain output Will change Reglan to PRN instead of Q6 hours scheduled as ileus has resolved Advance diet Once patient is consuming 50% of her meals, will wean off PPN. Discussed with nursing. Nurse practitioner note has been reviewed by physician. Signing provider agrees with the documented findings, assessment, and plan of care. Objective - Vital Signs Vital signs: Vital Signs Temp 97.7 F 02/19/19 04:00 Pulse 130 H 02/19/19 07:19 Resp 16 02/19/19 07:00 BP 137/92 02/19/19 07:00 Pulse Ox 92 L 02/19/19 07:09 Intake & Output 02/18/19 02/19/19 02/19/19 18:59 06:59 18:59 Intake Total 0585 2710 Output Total 393 865 Balance 1552 1845 Weight 72.1 kg Intake: IV 955 1143 0.9 Normal saline 55 65 Mvi, Adult No.4 with Vit 900 978 K 10 ml Trace (Conc-1Ml/ Dose) 1 ml Sodium Acetate 30 meq Calcium Gluconate 1 gm Potassium Phosphate 15 mmol In Amino Acid 4. 25%-D10w 1,000 ml @ 75 mls/hr IV .BY DURATION [facility] Rx#:[id number] Piperacillin-Tazobactam 3 100 .375 gm In Sodium Chloride 0.9% 100 ml @ 25 mls/hr IVPB Q12HR [facility] Rx #:[id number] Intake, IV Titration 1070 1267 Amount Fat Emulsion 20% 250 ml @ 115 126 20.833 mls/hr IV MoWeFr@ 1300 [facility] Rx#:[id number] Magnesium Sulfate-D5w Pmx 100 1 gm In Dextrose/Water 1 100ml.bag @ 100 mls/hr IVPB Q1H [facility] Rx#: [id number] Mvi, Adult No.4 with Vit 955 1041 K 10 ml Trace (Conc-1Ml/ Dose) 1 ml Sodium Acetate 30 meq Calcium Gluconate 1 gm Potassium Phosphate 15 mmol In Amino Acid 4. 25%-D10w 1,000 ml @ 75 mls/hr IV .BY DURATION [facility] Rx#:[id number] Oral 300 300 Output: Urine 773 765 Urine/Stool Mix 100 Other: Voiding Method Indwelling Catheter Indwelling Catheter - Labs CBC & Chem 7: 02/19/19 05:36 02/19/19 05:36 Labs: Abnormal Lab Results - Last 24 Hours (Table) 02/18/19 02/18/19 02/18/19 Range/Units 11:43 16:55 20:54 WBC (3.8-10.6) k/uL RBC (3.80-5.40) m/uL Hgb (11.4-16.0) gm/dL Hct (34.0-46.0) % Neutrophils # (1.3-7.7) k/uL Lymphocytes # (1.0-4.8) k/uL Sodium (137-145) mmol/L BUN (7-17) mg/dL Creatinine (0.52-1.04) mg/dL Glucose (74-99) mg/dL POC Glucose (mg/dL) 164 H 268 H 217 H (75-99) mg/dL 02/19/19 02/19/19 02/19/19 Range/Units 05:36 05:36 06:57 WBC 14.9 H (3.8-10.6) k/uL RBC 3.14 L (3.80-5.40) m/uL Hgb 9.6 L (11.4-16.0) gm/dL Hct 29.4 L (34.0-46.0) % Neutrophils # 12.2 H (1.3-7.7) k/uL Lymphocytes # 0.9 L (1.0-4.8) k/uL Sodium 135 L (137-145) mmol/L BUN 45 H (7-17) mg/dL Creatinine 1.82 H (0.52-1.04) mg/dL Glucose 124 H (74-99) mg/dL POC Glucose (mg/dL) 134 H (75-99) mg/dL <Soham Miller - Last Filed: 02/19/19 09:50> Subjective As above. Patient's shortness of breath is stable. Still with decreased oral intake. Abdomen less distended. Good ostomy function. Agree with increasing diet. Try to increase activity as tolerates. Continue antibiotics for possible right-sided pneumonia. Objective - Vital Signs Vital signs: Vital Signs Temp 97.7 F 02/19/19 04:00 Pulse 130 H 02/19/19 07:19 Resp 16 02/19/19 07:00 BP 137/92 02/19/19 07:00 Pulse Ox 92 L 02/19/19 07:09 Intake & Output 02/18/19 02/19/19 02/19/19 18:59 06:59 18:59 Intake Total 2325 2710 Output Total 773 865 Balance 1552 1845 Weight 72.1 kg Intake: IV 955 1143 0.9 Normal saline 55 65 Mvi, Adult No.4 with Vit 900 978 K 10 ml Trace (Conc-1Ml/ Dose) 1 ml Sodium Acetate 30 meq Calcium Gluconate 1 gm Potassium Phosphate 15 mmol In Amino Acid 4. 25%-D10w 1,000 ml @ 75 mls/hr IV .BY DURATION [facility] Rx#:[id number] Piperacillin-Tazobactam 3 100 .375 gm In Sodium Chloride 0.9% 100 ml @ 25 mls/hr IVPB Q12HR [facility] Rx #:[id number] Intake, IV Titration 1070 1267 Amount Fat Emulsion 20% 250 ml @ 115 126 20.833 mls/hr IV MoWeFr@ 1300 [facility] Rx#:[id number] Magnesium Sulfate-D5w Pmx 100 1 gm In Dextrose/Water 1 100ml.bag @ 100 mls/hr IVPB Q1H [facility] Rx#: [id number] Mvi, Adult No.4 with Vit 955 1041 K 10 ml Trace (Conc-1Ml/ Dose) 1 ml Sodium Acetate 30 meq Calcium Gluconate 1 gm Potassium Phosphate 15 mmol In Amino Acid 4. 25%-D10w 1,000 ml @ 75 mls/hr IV .BY DURATION [facility] Rx#:[id number] Oral 300 300 Output: Urine 773 765 Urine/Stool Mix 100 Other: Voiding Method Indwelling Catheter Indwelling Catheter - Labs CBC & Chem 7: 02/19/19 05:36 02/19/19 05:36 Labs: Abnormal Lab Results - Last 24 Hours (Table) 02/18/19 02/18/19 02/18/19 Range/Units 11:43 16:55 20:54 WBC (3.8-10.6) k/uL RBC (3.80-5.40) m/uL Hgb (11.4-16.0) gm/dL Hct (34.0-46.0) % Neutrophils # (1.3-7.7) k/uL Lymphocytes # (1.0-4.8) k/uL Sodium (137-145) mmol/L BUN (7-17) mg/dL Creatinine (0.52-1.04) mg/dL Glucose (74-99) mg/dL POC Glucose (mg/dL) 164 H 268 H 217 H (75-99) mg/dL 02/19/19 02/19/19 02/19/19 Range/Units 05:36 05:36 06:57 WBC 14.9 H (3.8-10.6) k/uL RBC 3.14 L (3.80-5.40) m/uL Hgb 9.6 L (11.4-16.0) gm/dL Hct 29.4 L (34.0-46.0) % Neutrophils # 12.2 H (1.3-7.7) k/uL Lymphocytes # 0.9 L (1.0-4.8) k/uL Sodium 135 L (137-145) mmol/L BUN 45 H (7-17) mg/dL Creatinine 1.82 H (0.52-1.04) mg/dL Glucose 124 H (74-99) mg/dL POC Glucose (mg/dL) 134 H (75-99) mg/dL Assessment and Plan (1) Abdominal pain Current Visit: Yes Status: Acute Code(s): R10.9 - UNSPECIFIED ABDOMINAL PAIN SNOMED Code(s): 71426826
--- NOTE | 2019-02-19 10:02 | P.PN ---
Subjective Progress Note Date: 02/19/19 This 82-year-old female with history of hypertension and diastolic congestive heart failure and paroxysmal atrial fibrillation had a colectomy laparoscopically. Patient is not complaining of abdominal pain but complains of shortness of breath. She is in atrial fibrillation with controlled and corresponds. Her blood pressure is about 110. Patient is on Catapres along with metoprolol. She is also on Eliquis. I will increase the dose of the metoprolol and the heart rate is controlled, we'll may discontinue Cardizem. Lungs examination shows diminished breath sounds at bases. Heart is irregular. We'll follow the 02/17/2019: This patient is to intensive care unit. Patient still complaining of abdominal discomfort. Has been coughing and having some dysphagia difficulties. Patient remains in atrial fibrillation with controlled ventricular response. She is on metoprolol and also anti-cognition therapy with Eliquis 2.5 mg by mouth twice a day. Patient is status post abdominal surgery with removal of significant adhesions and also colectomy and colostomy. She is progressing slowly. Request pulmonary toilet. We'll continue current medical therapy. We will follow. 02/18/2019:. Patient claims she is feeling slightly better. Patient is in atrial fibrillation with moderate to rapid ventricle response. I'm going to increase the dose of the metoprolol. Patient is on anticoagulation therapy. However, patient is having blood in the urine. Urology is could evaluate the patient. We'll going to hold anti-cognition therapy temporarily. Rest of the management as per the surgeon's 02/19/2019: Patient's appear to be slightly better. Denies any chest pain or shortness of breath. Patient heart rate is in the 120s to 130s. She is on metoprolol 50 mg by mouth 3 times a day. She is not on IV Cardizem. She is on anticoagulation therapy. I'm going to add oral Cardizem 60 mg by mouth 3 times a day. Lungs appeared to be relatively clear. Heart is regular. We'll follow Objective - Vital Signs Vital signs: Vital Signs Temp 97.7 F 02/19/19 04:00 Pulse 130 H 02/19/19 07:19 Resp 16 02/19/19 07:00 BP 137/92 02/19/19 07:00 Pulse Ox 92 L 02/19/19 07:09 Intake & Output 02/18/19 02/19/19 02/19/19 18:59 06:59 18:59 Intake Total 2325 2710 Output Total 773 865 Balance 1552 1845 Weight 72.1 kg Intake: IV 955 1143 0.9 Normal saline 55 65 Mvi, Adult No.4 with Vit 900 978 K 10 ml Trace (Conc-1Ml/ Dose) 1 ml Sodium Acetate 30 meq Calcium Gluconate 1 gm Potassium Phosphate 15 mmol In Amino Acid 4. 25%-D10w 1,000 ml @ 75 mls/hr IV .BY DURATION [facility] Rx#:[id number] Piperacillin-Tazobactam 3 100 .375 gm In Sodium Chloride 0.9% 100 ml @ 25 mls/hr IVPB Q12HR [facility] Rx #:[id number] Intake, IV Titration 1070 1267 Amount Fat Emulsion 20% 250 ml @ 115 126 20.833 mls/hr IV MoWeFr@ 1300 [facility] Rx#:[id number] Magnesium Sulfate-D5w Pmx 100 1 gm In Dextrose/Water 1 100ml.bag @ 100 mls/hr IVPB Q1H [facility] Rx#: [id number] Mvi, Adult No.4 with Vit 955 1041 K 10 ml Trace (Conc-1Ml/ Dose) 1 ml Sodium Acetate 30 meq Calcium Gluconate 1 gm Potassium Phosphate 15 mmol In Amino Acid 4. 25%-D10w 1,000 ml @ 75 mls/hr IV .BY DURATION [facility] Rx#:[id number] Oral 300 300 Output: Urine 773 765 Urine/Stool Mix 100 Other: Voiding Method Indwelling Catheter Indwelling Catheter - Exam GENERAL EXAM: Patient is alert and oriented and doesn't appear to be in any acute distress with complaints of being short of breath HEENT: Normocephalic. Normal reaction of pupils, equal size, normal range of extraocular motion. No erythema or exudates in the throat. NECK: No masses, no nuchal rigidity. CHEST: No chest wall deformity. LUNGS: Diminished breath sounds at bases HEART: S1 and S2 normal with no audible mumurs or gallops. Regular rhythm, femorals equal on both sides.. ABDOMEN: No hepatosplenomegaly, normal bowel sounds, no guarding or rigidity. SKIN: No rashes CENTRAL NERVOUS SYSTEM: No focal deficits. EXTREMITIES: No cyanosis, clubbing or edema. - Labs CBC & Chem 7: 02/19/19 05:36 02/19/19 05:36 Labs: Abnormal Lab Results - Last 24 Hours (Table) 02/18/19 02/18/19 02/18/19 Range/Units 11:43 16:55 20:54 WBC (3.8-10.6) k/uL RBC (3.80-5.40) m/uL Hgb (11.4-16.0) gm/dL Hct (34.0-46.0) % Neutrophils # (1.3-7.7) k/uL Lymphocytes # (1.0-4.8) k/uL Sodium (137-145) mmol/L BUN (7-17) mg/dL Creatinine (0.52-1.04) mg/dL Glucose (74-99) mg/dL POC Glucose (mg/dL) 164 H 268 H 217 H (75-99) mg/dL 02/19/19 02/19/19 02/19/19 Range/Units 05:36 05:36 06:57 WBC 14.9 H (3.8-10.6) k/uL RBC 3.14 L (3.80-5.40) m/uL Hgb 9.6 L (11.4-16.0) gm/dL Hct 29.4 L (34.0-46.0) % Neutrophils # 12.2 H (1.3-7.7) k/uL Lymphocytes # 0.9 L (1.0-4.8) k/uL Sodium 135 L (137-145) mmol/L BUN 45 H (7-17) mg/dL Creatinine 1.82 H (0.52-1.04) mg/dL Glucose 124 H (74-99) mg/dL POC Glucose (mg/dL) 134 H (75-99) mg/dL Assessment and Plan (1) Essential hypertension Current Visit: Yes Status: Acute Code(s): I10 - ESSENTIAL (PRIMARY) HYPERTENSION SNOMED Code(s): 00780769 (2) Partial small bowel obstruction Current Visit: Yes Status: Acute Code(s): K56.600 - PARTIAL INTESTINAL OBSTRUCTION, UNSPECIFIED TO CAUSE SNOMED Code(s): 918403813 (3) Paroxysmal atrial fibrillation Current Visit: Yes Status: Acute Code(s): I48.0 - PAROXYSMAL ATRIAL FIBRILLATION SNOMED Code(s): 505132781 (4) Diastolic CHF Current Visit: Yes Status: Acute Code(s): I50.30 - UNSPECIFIED DIASTOLIC (C ONGESTIVE) HEART FAILURE SNOMED Code(s): 679523693 Plan: Continue current medical therapy. Add by mouth Cardizem for better control of heart rate. Continue rest of the management
[2019-02-19 11:59] LABS: Glucose,Whole Blood 180 mg/dL (75-99)
--- NOTE | 2019-02-19 12:40 | P.PN ---
Subjective Progress Note Date: 02/19/19 Principal diagnosis: Acute bowel obstruction status post laparotomy extensive was of adhesions and sigmoid colectomy and end colostomy postoperative day #7 This is a pleasant 83-year-old female patient admitted back on 02/07/2019 with complaints of constipation and abdominal discomfort. She had not moved her bowels for several days prior. Abdominal x-rays did show evidence of constipation. Fleet enema and MiraLAX at home were unsuccessful. She was subsequently admitted for abdominal bloating and discomfort. She was found to have a colon obstruction and yesterday had undergone exposure laparotomy, extensive lysis of adhesions, sigmoid colectomy, end colostomy done by Dr. Miller. She remained hypoxic postoperatively and was placed on BiPAP with an FiO2 of 80%. We're consulted for the same. No chest x-ray was done. She is seen today on the selective care unit. She is currently awake and alert in no acute distress. She is having some ongoing abdominal discomfort. She has a midline incision with maggy intact and a colostomy with stool present. She is currently on 6 L high flow nasal cannula and maintaining O2 saturation in the mid 90s. She denies any worsening shortness of breath, cough or congestion. Urine culture was positive for Klebsiella pneumoniae and E coli. Blood cultures had revealed no growth. White count 12.8. Hemoglobin 11.6. Sodium 148. Potassium 3.9. Creatinine 2.20. She has D5.45 running at 100 ML's per hour. She is currently on ceftriaxone and Flagyl. PPN and lipids have been ordered. The patient was having issues with atrial fibrillation preoperatively and was initially on a heparin drip. The plan from cardiology is to initiate Eliquis once cleared surgically. On today's evaluation of 02/14/2019 I was asked even with this patient and the patient was found to be more lethargic and short of breath. I the patient did she is relatively comfortable on oxygen at 4 L. Nevertheless, she states that she wants to and she is unable to take this ongoing treatment any further. In terms of her cardiac condition, she is in atrial fibrillation with rapid ventricular response and a current heart rate is around 120-140. She has a Murphy catheter urine output is in order of 30 mL an hour. She had a chest x-ray that showed increased opacification of the lung bases. Ultrasound of the chest was done that showed small pockets and based on the ultrasound these markers were not and minimal 4 thoracentesis. She is on Diprivan running at the rate of 75 mL an hour. She is also on IV fluids running at 75 mL an hour of normal saline. The patient has a positive fluid balance of 1.1 L. She has a creatinine of 2.4 with a mean of 34. ABCDs not done this morning. She has a positive output and her colostomy bag. The surgical wound site is dry clean and intact. She is afebrile for now. on 02/16/2016, the patient is transferred to the intensive care unit. The patient's oxygen requirements went up yesterday and she is currently on15 L of oxygen by nasal cannula. I opted to bring her down to the ICU. The ultrasound of the chest was not conclusive in terms of fluid and based on that I ordered a CAT scan of the chest that was done without contrast and the CAT scan showed worsening atelectatic changes in lung bases, pneumonia cannot be completely excluded. The pleural effusions were very tiny and there were not and the blood for thoracentesis. Based on that, no intervention was done. Currently she is awake and alert. She is on a combination of IV Rocephin and Flagyl.er white cell count came up to 18. Her creatinine is up to 2.1. Creatinine is stable for now. The lactic acid level was low at 1. She is awake. She is alert. The colostomy is functioning and she has adequate output at this point in time.The patient still on TPN and were going to initiate someclear liquid diet today. Reevaluated today on 02/16/2019, patient remains in the ICU, O2 saturation is marginal, still requiring a high flow nasal cannula at 15 L/m, chest x-ray shows significant airspace disease and atelectasis with consolidation at the bases bilaterally right more so than left, hence I recommended that we use intermittently BiPAP with IPAP of 12 and EPAP of 4. Continues to have leukocytosis with WBC count of 14.5, hemoglobin is 10.1 lites are normal BUN is 41 creatinine 2.01. Close to her baseline since admission. Chest x-ray is quite concerning to me, and CT of the chest was also reviewed, patient has significant bibasilar consolidation and air bronchograms noted in both lungs bilaterally more so in the right lower lobe. On 02/17/2019 patient seen in follow-up in the intensive care unit, she is off BiPAP support currently, she is on 15 L, and her pulse ox is 92-94%, either tachycardic on a monitor, hemodynamically patient is stable, she states she feels short of breath, she has a congested cough, at times she is able to produce small amount of yellowish sputum, lung sounds are positive for rhonchi, and some wheezing, urine culture was positive for Klebsiella pneumonia and E. coli, blood culture has shown no growth, patient's antibiotics have been simplified and currently patient is on Zosyn. White count is trending down, it is 13.8 on today's labs, hemoglobin is 10.2, sodium was 135, dorsiflexors were unremarkable, B1 is 41 creatinine is 1.94, profile is slightly improved, inc entive spirometry effort is poor, and patient is only able to achieve 500 on the incentive spirometer today. Patient continues to be nothing by mouth, she continues on TPN, she was started on promotility agent, in the form of Reglan. Was no output from her ostomy overnight. Surgery is following. Reevaluated today on 02/18/2019, patient is still in the intensive care unit, remains on a high flow nasal cannula, she used BiPAP last night, O2 saturation remains marginal in the low 90s. Patient is hemodynamically stable, she feels fine, she seems to have a better cough today compared to the last couple of days, chest x-ray is showing slightly better aeration of the bases of her lungs, nonetheless she continues to have atelectasis/infiltrates mostly in the right lower lobe, and she has a chronically elevated right hemidiaphragm. WBC count is 12.6, left lites are normal renal profile is improving BUN is 42 creatinine is down to 1.78 compared to 1.94 yesterday and 2.19 few days ago. Her pro calcitonin level was elevated, hence the patient was kept on antibiotics for presumptive right lower lobe pneumonia. Presently on Zosyn. Reevaluated today on 02/19/2019, remains in the intensive care unit, remains on high flow nasal cannula at 15 L/m, intermittently on BiPAP at night. Patient is feeling better, however her O2 saturation remains fairly marginal in the low 90s. She is hemodynamically stable, patient had intermittent episodes of atrial fibrillation with RVR, being addressed by cardiology on the case. Chest x-ray continues to show improvement in her atelectasis and bibasilar effusions, there is definitely better aeration to the bases of her lungs, continues to have right hemidiaphragm elevation. Urine culture came back positive for Klebsiella pneumoniae and E. coli. And this has been treated. Remains on Zosyn. Patient denies any chest pain, no shortness of breath, no cough, no wheezing, she is now on metoprolol 50 mg 3 times a day and Cardizem orally was added 60 mg 3 times a day. Objective - Vital Signs Vital signs: Vital Signs Temp 98 F 02/19/19 08:00 Pulse 120 H 02/19/19 11:35 Resp 22 02/19/19 11:00 BP 117/96 02/19/19 11:00 Pulse Ox 96 02/19/19 11:00 Intake & Output 02/18/19 02/19/19 02/19/19 18:59 06:59 18:59 Intake Total 2325 2710 502 Output Total 773 865 425 Balance 1552 1845 77 Weight 72.1 kg 72.1 kg Intake: IV 955 1143 502 0.9 Normal saline 55 65 25 Mvi, Adult No.4 with Vit 900 978 377 K 10 ml Trace (Conc-1Ml/ Dose) 1 ml Sodium Acetate 30 meq Calcium Gluconate 1 gm Potassium Phosphate 15 mmol In Amino Acid 4. 25%-D10w 1,000 ml @ 75 mls/hr IV .BY DURATION [facility] Rx#:[id number] Piperacillin-Tazobactam 3 100 100 .375 gm In Sodium Chloride 0.9% 100 ml @ 25 mls/hr IVPB Q12HR [facility] Rx #:[id number] Intake, IV Titration 1070 1267 Amount Fat Emulsion 20% 250 ml @ 115 126 20.833 mls/hr IV MoWeFr@ 1300 [facility] Rx#:[id number] Magnesium Sulfate-D5w Pmx 100 1 gm In Dextrose/Water 1 100ml.bag @ 100 mls/hr IVPB Q1H [facility] Rx#: [id number] Mvi, Adult No.4 with Vit 955 1041 K 10 ml Trace (Conc-1Ml/ Dose) 1 ml Sodium Acetate 30 meq Calcium Gluconate 1 gm Potassium Phosphate 15 mmol In Amino Acid 4. 25%-D10w 1,000 ml @ 75 mls/hr IV .BY DURATION [facility] Rx#:[id number] Oral 300 300 Output: Urine 773 765 425 Urine/Stool Mix 100 Other: Voiding Method Indwelling Catheter Indwelling Catheter Indwelling Catheter - Exam GENERAL EXAM: Revealed 83-year-old female, in no distress, on high flow nasal cannula Head: Atraumatic normocephalic. EENT: PERRLA, EOMI, neck disc, dry mucous membranes, throat is clear. No neck masses no JVD no stridor. CHEST: No chest wall deformity. LUNGS: diminished breath sounds at the bases, mostly at the right base. no rhonchi and no wheezes.. CVS: S1 and S2 normal with no audible murmur, regular rhythm. ABDOMEN: Midline incision with maggy intact, colostomy functioning. SPINE: No scoliosis or deformity SKIN: No rashes CENTRAL NERVOUS SYSTEM: No focal deficits, tone is normal in all 4 extremities. EXTREMITIES: There is no peripheral edema. No clubbing, no cyanosis. Peripheral pulses are intact. - Labs CBC & Chem 7: 02/19/19 05:36 02/19/19 05:36 Labs: Abnormal Lab Results - Last 24 Hours (Table) 02/18/19 02/18/19 02/19/19 Range/Units 16:55 20:54 05:36 WBC (3.8-10.6) k/uL RBC (3.80-5.40) m/uL Hgb (11.4-16.0) gm/dL Hct (34.0-46.0) % Neutrophils # (1.3-7.7) k/uL Lymphocytes # (1.0-4.8) k/uL Sodium 135 L (137-145) mmol/L BUN 45 H (7-17) mg/dL Creatinine 1.82 H (0.52-1.04) mg/dL Glucose 124 H (74-99) mg/dL POC Glucose (mg/dL) 268 H 217 H (75-99) mg/dL 02/19/19 02/19/19 02/19/19 Range/Units 05:36 06:57 11:57 WBC 14.9 H (3.8-10.6) k/uL RBC 3.14 L (3.80-5.40) m/uL Hgb 9.6 L (11.4-16.0) gm/dL Hct 29.4 L (34.0-46.0) % Neutrophils # 12.2 H (1.3-7.7) k/uL Lymphocytes # 0.9 L (1.0-4.8) k/uL Sodium (137-145) mmol/L BUN (7-17) mg/dL Creatinine (0.52-1.04) mg/dL Glucose (74-99) mg/dL POC Glucose (mg/dL) 134 H 180 H (75-99) mg/dL Assessment and Plan Assessment: Impression: acute bowel obstruction, status post exploratory laparotomy, extensive lysis of adhesions, sigmoid colectomy, and colostomy postoperative day #7 Acute hypoxic respiratory failure suspect aspiration pneumonia, and postoperat maribel atelectasis. Acute urinary tract infection secondary to Klebsiella pneumoniae and E. coli. Chronic atrial fibrillation. Today patient had atrial fibrillation with RVR being addressed by cardiology. Benign essential hypertension. History of hyperlipidemia. Acute on chronic renal failure, patient has chronic renal failure stage III. Improving Recommendation: Continue antibiotics/Zosyn Continue GI and DVT prophylaxis Continue cardiac meds Continue to advance diet as tolerated. Intermittent use of BiPAP. Strongly recommended to the patient. In the meantime continue high flow nasal cannula. Incentive spirometry. Strongly advised, and the patient was instructed to use incentive spirometer. Aggressive pulmonary toileting. Prognosis remains guarded, patient will remain in the ICU, pulmonary and cardiac status remained marginal hence we'll continue to follow in the ICU. Discussed her condition with family at bedside. Time with Patient: Less than 30
--- NOTE | 2019-02-19 12:42 | P.PN ---
Subjective Progress Note Date: 02/19/19 Principal diagnosis: mechanical obstruction with small bowel and distended abdomen with history of adhesions in the past. The progress note dictated on 02/08/2090 by Patient with history notable bowel movement or stool or passing flatus for more than one week duration x-ray indicating small bowel mechanical obstruction. And patient currently nothing by mouth with NG tube which she did some relief. Her vital sign temperature 90.8 orally F Fahrenheit and her pulse rate 80 and she developed on the surgical floor atrial fibrillation with a rate of 1:30 P 8/m patient transferred to photoengraving photographer floor with cardiology consultation which she was started on cardiac exam drip. And seen by Dr. ISATU Zamudio. Respiratory rate 16 and her blood pressure is hypertensive in spite of trial of medication 187/84. She is on nasal cannula 2 L of oxygen with a pulse ox 95%. current laboratories indicating that her WBC 5.3 with a hemoglobin 11.6, her platelet count 414.next is her PTT 32.6with the normal range 30.6. Minimally elevated. Chemistry indicating sodium 144 potassium 3.8 chloride 108 carbon dioxid 28, anion gap 8, BUN 20, creatinine 1.94, EGFR 23 with chronic kidney disease stage IV. Glucose 131AST and LT normal alk phos 137 total protein 6.1 and albumin 3.4 thyroid function is normal and the free T3 some little bit lower than normal that is because of her illness Nephrology evaluation and assessment indicating patient with the UTI Klebsiella pneumonia and E. coli treated according to the culture with the assessment acute kidney injury possibly prerenal improved with hydration. Chronic kidney disease stage IV with the creatinine near 2 secondary to hydronephrosis and left renal atrophy. #3 abdominal pain with questionable diverticulitis and chronic obstruction and NG tube for decompression. Neurogenic bladder and uses a catheterization 4-5 a day metabolic acidosis and she is on bicarb hypertension is controlled and UTI. Physical exam patient status post barium enema and patient the result reviewed by Dr. Sahu and his impression will be discussed with the family. HEENT was negative neck was supple and chest was clear and the heart was currently controlled atrophic And abdomen is tender distended and with the small bowel obstruction extremities no edema. Assessment small bowel obstruction mechanical and high fall to the patient should have surgical intervention. However this is a surgical case and up to the family and the surgeon. This dictation progress note date of service 02/19/[address] Engel. Patient seen [id number] evaluated discussed with her [id number]. And the patient. She is in ICU 266. Vital sign temperature 90.8 F oral. Heart rate atrial fibrillation fluctuating between 122 101. Patient seen by cardiology Dr. Giles who adjusted her medication, patient currently on beta blockers 3 times a day 50 mg plus started on Cardizem by mouth as she had allowable advanced diet which he ordered by Dr. Sahu the surgeon. The abdominal distention improving with the colostomy bag has a stool and positive bowel sounds. Patient on antibiotic as well her respiratory rate 22/m nonlabored and blood pressure 117/96 stable, pulse ox 96% still on high flow 15 L/m and intermittent BiPAP. Patient is able to communicate and talk, conscious alert oriented 3, her daughter in law at bedside. In ICU. HEENT negative Neck supple no JVD no thyromegaly no lymphadenopathy trachea midline. Chest she has a symmetrical chest with the underlying kyphoscoliosis and has symmetry of the diaphragm, atelectasis and possible aspiration pneumonitis considered. Heart has been seen by cardiology indicating diastolic congestive heart failure, atrial fibrillation was fluctuating rate has been aggressively treated. Abdomen: Improving the distention, colostomy bag with stools, positive bowel sounds, still tenderness present with deep palpation. Extremities: She had advanced right hip degenerative arthropathy with the underlying pain in the right hip which has currently not present due to recumbency. However when she started to ambulate will be panful joint. She had physical therapy started to see the patient has patient started to eat. Still have the TPN IV and Murphy catheter in place with the underlying neurogenic bladder, as well as right hydroureter hydronephrosis and loss of function of the left kidneys atrophic. Laboratories: WBC 14.9 with a hemoglobin 9.6 and a hematocrit 29.4. Her MCV 93. 8. And she has a slight hypochromasia. Chemistry: Sodium 135, potassium 4.1, chloride 103, carbon dioxide 23, BUN of 45 and creatinine 1.8 to which is her baseline and estimated GFR for non- 2 5. The glucose hyperglycemia secondary to the TPN and laboratory indicating blood sugar this morning was 124, and POC glucose ranging between 180 and 134., Calcium 8.6 phosphorus 4.3 magnesium 1.8. Assessment and plan: Patient found that she had early decubitus and the treatment, her vital signs s table with the irregularities was fluctuating atrial fibrillation. Generally improving clinically Continuing the current treatment, discussed with the patient and her [id number]. Objective - Vital Signs Vital signs: Vital Signs Temp 98 F 02/19/19 08:00 Pulse 120 H 02/19/19 11:35 Resp 22 02/19/19 11:00 BP 117/96 02/19/19 11:00 Pulse Ox 96 02/19/19 11:00 Intake & Output 02/18/19 02/19/19 02/19/19 18:59 06:59 18:59 Intake Total 2325 2710 502 Output Total 773 865 425 Balance 1552 1845 77 Weight 72.1 kg 72.1 kg Intake: IV 955 1143 502 0.9 Normal saline 55 65 25 Mvi, Adult No.4 with Vit 900 978 377 K 10 ml Trace (Conc-1Ml/ Dose) 1 ml Sodium Acetate 30 meq Calcium Gluconate 1 gm Potassium Phosphate 15 mmol In Amino Acid 4. 25%-D10w 1,000 ml @ 75 mls/hr IV .BY DURATION [facility] Rx#:[id number] Piperacillin-Tazobactam 3 100 100 .375 gm In Sodium Chloride 0.9% 100 ml @ 25 mls/hr IVPB Q12HR [facility] Rx #:[id number] Intake, IV Titration 1070 1267 Amount Fat Emulsion 20% 250 ml @ 115 126 20.833 mls/hr IV MoWeFr@ 1300 [facility] Rx#:[id number] Magnesium Sulfate-D5w Pmx 100 1 gm In Dextrose/Water 1 100ml.bag @ 100 mls/hr IVPB Q1H [facility] Rx#: [id number] Mvi, Adult No.4 with Vit 955 1041 K 10 ml Trace (Conc-1Ml/ Dose) 1 ml Sodium Acetate 30 meq Calcium Gluconate 1 gm Potassium Phosphate 15 mmol In Amino Acid 4. 25%-D10w 1,000 ml @ 75 mls/hr IV .BY DURATION [facility] Rx#:[id number] Oral 300 300 Output: Urine 773 765 425 Urine/Stool Mix 100 Other: Voiding Method Indwelling Catheter Indwelling Catheter Indwelling Catheter - Labs CBC & Chem 7: 02/19/19 05:36 02/19/19 05:36 Labs: Abnormal Lab Results - Last 24 Hours (Table) 02/18/19 02/18/19 02/19/19 Range/Units 16:55 20:54 05:36 WBC (3.8-10.6) k/uL RBC (3.80-5.40) m/uL Hgb (11.4-16.0) gm/dL Hct (34.0-46.0) % Neutrophils # (1.3-7.7) k/uL Lymphocytes # (1.0-4.8) k/uL Sodium 135 L (137-145) mmol/L BUN 45 H (7-17) mg/dL Creatinine 1.82 H (0.52-1.04) mg/dL Glucose 124 H (74-99) mg/dL POC Glucose (mg/dL) 268 H 217 H (75-99) mg/dL 02/19/19 02/19/19 02/19/19 Range/Units 05:36 06:57 11:57 WBC 14.9 H (3.8-10.6) k/uL RBC 3.14 L (3.80-5.40) m/uL Hgb 9.6 L (11.4-16.0) gm/dL Hct 29.4 L (34.0-46.0) % Neutrophils # 12.2 H (1.3-7.7) k/uL Lymphocytes # 0.9 L (1.0-4.8) k/uL Sodium (137-145) mmol/L BUN (7-17) mg/dL Creatinine (0.52-1.04) mg/dL Glucose (74-99) mg/dL POC Glucose (mg/dL) 134 H 180 H (75-99) mg/dL
[2019-02-19 14:42] LABS: Hemoglobin A1C 5.9 % (4.0-6.0)
[2019-02-19] MEDS: DILTIAZEM ORAL 60 MG TAB PO SCH ×2 (16:03→21:39)
[2019-02-19 16:59] LABS: Glucose,Whole Blood 124 mg/dL (75-99)
--- NOTE | 2019-02-19 17:17 | PN ---
PROGRESS NOTE Patient was seen this morning. She was comfortable, not in any acute distress. She is still not able to eat much; however, she is trying. PHYSICAL EXAMINATION: On examination this morning, blood pressure was 129/85. Patient is afebrile. Heart rate of about 101 per minute. EXAMINATION OF THE HEART: S1 and S2. EXAMINATION OF LUNGS: Bilateral breath sounds are heard. Decreased breath sounds at bases. ABDOMEN: Soft. Tenderness is noted. Examination of lower extremities shows trace edema bilaterally. NURSE FIRST ASSIST exam is grossly intact. LABS: Sodium 135, potassium 4.1, chloride 103, BUN 45, creatinine 1.82, hemoglobin 9.6 g/dL. ASSESSMENT: 1. Acute kidney injury, prerenal, currently improved, with a component of acute tubular necrosis, nonoliguric. 2. Chronic kidney disease, NKF stage IV, with baseline creatinine around 2 with left renal atrophy. 3. History of neurogenic bladder with self-catheterization, currently with Murphy catheter. 4. Metabolic alkalosis, now resolved. 5. Urinary tract infection with urine culture growing klebsiella and Escherichia coli, maintained on antibiotics. 6. Atrial fibrillation, now with controlled ventricular response. 7. Hypertension with chronic kidney disease. 8. Hematuria, status post evaluation by Urology. Anticoagulation is currently on hold. PLAN: Continue TPN. Monitor electrolytes. Patient does not have right nephrectomy. She has left renal atrophy. MMODL / IJN: [id number] /
[2019-02-19 20:56] LABS: Glucose,Whole Blood 139 mg/dL (75-99)
[2019-02-19] MEDS: ATORVASTATIN 10 MG TAB PO SCH (21:14)
[2019-02-19] MEDS: DULoxetine HCL 60 MG CAPSULE.DR PO SCH (21:14)
[2019-02-20] MEDS ORDERED: METOPROLOL TARTRATE 50 MG TAB PO STA (00:33)
[2019-02-20 06:02] LABS: Basophils # (A) 0.2 k/uL (0-0.2); Basophils % (A) 2 %; Eosinophils # (A) 0.4 k/uL (0-0.7); Eosinophils % (A) 3 %; HCT 30.9 % (34.0-46.0); HGB 9.6 gm/dL (11.4-16.0); Lymphocytes # (A) 0.7 k/uL (1.0-4.8); Lymphocytes % (A) 5 %; MCH 28.9 pg (25.0-35.0); MCHC 30.9 g/dL (31.0-37.0); MCV 93.4 fL (80.0-100.0); Mean Platelet Volume 8.7; Monocytes % (A) 7 %; Neutrophils % (A) 80 %; Platelet Count 436 k/uL (150-450); RBC 3.31 m/uL (3.80-5.40); RDW 14.4 % (11.5-15.5); WBC 13.8 k/uL (3.8-10.6)
[2019-02-20 06:18] LABS: Ionized Calcium 5.1 mg/dL (4.5-5.3)
[2019-02-20 06:26] LABS: Calcium 8.2 mg/dL (8.4-10.2); Magnesium 2.4 mg/dL (1.6-2.3); Phosphorus 3.9 mg/dL (2.5-4.5); Potassium 4.3 mmol/L (3.5-5.1)
--- NOTE | 2019-02-20 06:45 | XR ---
EXAMINATION TYPE: XR chest 1V portable DATE OF EXAM: 02/20/2019 CLINICAL HISTORY: Postoperative hypoxemia progress study. TECHNIQUE: Single AP portable upright view of the chest is obtained. COMPARISON: Chest x-ray from one day earlier and older studies. CT chest February 14, 2019 FINDINGS: Persistent elevated right hemidiaphragm with bibasilar opacities. Cardiomegaly with athero sclerotic thoracic aorta. Upper lungs remain clear without pneumothorax. Advanced degenerative change s bilateral shoulders is redemonstrated. Bilateral hilar prominence consistent with underlying pulmon suresh hypertension redemonstrated. Soft tissue fullness right paratracheal region corresponds to a tort uous course to the right brachiocephalic artery on CT. IMPRESSION: Overall stable findings, cardiomegaly with elevated right hemidiaphragm and bibasilar a cute infiltrate and/or atelectasis are all redemonstrated.
[2019-02-20 06:56] LABS: Glucose,Whole Blood 149 mg/dL (75-99)
[2019-02-20] MEDS: 1: MVI, ADULT NO.4 WITH VIT K 10 ML, TRACE (CONC-1ML/DOSE) 1 ML, SODIUM ACETATE 30 MEQ, IV SCH ×16 (07:00→22:00)
[2019-02-20] MEDS: INSULIN ASPART (NovoLOG) 100 UNIT/ML VIAL SQ SCH ×4 (07:00→21:59)
[2019-02-20] MEDS: IPRATROPIUM-ALBUTEROL 3 ML NEB INHALATION SCH ×4 (07:51→20:17)
[2019-02-20] MEDS: BUDESONIDE 0.5 MG/2 ML NEBU INHALATION SCH ×2 (07:51→20:17)
[2019-02-20] MEDS: HYDROcodone/APAP 5-325MG 1 EACH TAB PO PRN ×2 (08:59→15:05)
[2019-02-20] MEDS: DILTIAZEM ORAL 60 MG TAB PO SCH ×3 (09:00→21:59)
[2019-02-20] MEDS: METOPROLOL TARTRATE 50 MG TAB PO SCH ×3 (09:00→21:58)
[2019-02-20] MEDS: PIPERACILLIN-TAZOBACTAM 3.375 GM in SODIUM CHLORIDE 0.9% 100 ML IVPB SCH ×2 (09:00→15:13)
--- NOTE | 2019-02-20 10:57 | PN ---
PROGRESS NOTE Patient is seen for followup for chronic kidney disease and acute kidney injury. She is status post explorative laparotomy with colectomy and lysis of adhesions for small bowel obstruction. Currently patient continues to complain of abdominal pain. She has not been eating much. She is maintained on TPN. Renal function has improved with creatinine down from about 2.4 to 1.7 now, which is at her baseline. PHYSICAL EXAMINATION: On examination this morning, blood pressure was 112/81, heart rate 99 per minute. Patient is afebrile. EXAMINATION OF THE HEART: S1, S2. EXAMINATION OF THE LUNGS: Bilateral breath sounds are heard. ABDOMEN: Soft. Tenderness is noted. Examination of lower extremities shows trace edema bilaterally. ASSET PROTECTION DETECTIVE EXAM: Grossly intact. LABS: Labs show sodium 134, potassium 4.3, chloride 103, BUN 49, creatinine 1.72, hemoglobin 9.6 g/dL. ASSESSMENT: 1. Acute kidney injury prerenal currently improved. 2. Chronic kidney disease, stage 4, secondary to nephrosclerosis. Renal function close to baseline currently, with creatinine at 1.7 to 1.9. 3. History of neurogenic bladder with self catheterization currently with Murphy catheter. 4. History of left renal atrophy. Patient does not have history of nephrectomy. 5. Metabolic alkalosis, now resolved. 6. Urinary tract infection with urine culture growing Escherichia coli and Klebsiella, maintained on antibiotics. 7. Status post explorative laparotomy, lysis of adhesions, colectomy for small bowel obstruction, maintained on TPN, not eating much. Currently, continue to complain of abdominal pain. 8. Atrial fibrillation with controlled ventricular response. Eliquis is on hold. Patient is maintained on oral Cardizem. PLAN: Continue with TPN. Monitor electrolytes. MMODL / IJN: [id number] /
--- NOTE | 2019-02-20 11:15 | P.PN ---
Subjective Progress Note Date: 02/20/19 Principal diagnosis: Acute bowel obstruction status post laparotomy extensive was of adhesions and sigmoid colectomy and end colostomy postoperative day # 8 This is a pleasant 83-year-old female patient admitted back on 02/07/2019 with complaints of constipation and abdominal discomfort. She had not moved her bowels for several days prior. Abdominal x-rays did show evidence of constipation. Fleet enema and MiraLAX at home were unsuccessful. She was subsequently admitted for abdominal bloating and discomfort. She was found to have a colon obstruction and yesterday had undergone exposure laparotomy, extensive lysis of adhesions, sigmoid colectomy, end colostomy done by Dr. Miller. She remained hypoxic postoperatively and was placed on BiPAP with an FiO2 of 80%. We're consulted for the same. No chest x-ray was done. She is seen today on the selective care unit. She is currently awake and alert in no acute distress. She is having some ongoing abdominal discomfort. She has a midline incision with maggy intact and a colostomy with stool present. She is currently on 6 L high flow nasal cannula and maintaining O2 saturation in the mid 90s. She denies any worsening shortness of breath, cough or congestion. Urine culture was positive for Klebsiella pneumoniae and E coli. Blood cultures had revealed no growth. White count 12.8. Hemoglobin 11.6. Sodium 148. Potassium 3.9. Creatinine 2.20. She has D5.45 running at 100 ML's per hour. She is currently on ceftriaxone and Flagyl. PPN and lipids have been ordered. The patient was having issues with atrial fibrillation preoperatively and was initially on a heparin drip. The plan from cardiology is to initiate Eliquis once cleared surgically. On today's evaluation of 02/14/2019 I was asked even with this patient and the patient was found to be more lethargic and short of breath. I the patient did she is relatively comfortable on oxygen at 4 L. Nevertheless, she states that she wants to and she is unable to take this ongoing treatment any further. In terms of her cardiac condition, she is in atrial fibrillation with rapid ventricular response and a current heart rate is around 120-140. She has a Murphy catheter urine output is in order of 30 mL an hour. She had a chest x-ray that showed increased opacification of the lung bases. Ultrasound of the chest was done that showed small pockets and based on the ultrasound these markers were not and minimal 4 thoracentesis. She is on Diprivan running at the rate of 75 mL an hour. She is also on IV fluids running at 75 mL an hour of normal saline. The patient has a positive fluid balance of 1.1 L. She has a creatinine of 2.4 with a mean of 34. ABCDs not done this morning. She has a positive output and her colostomy bag. The surgical wound site is dry clean and intact. She is afebrile for now. on 02/16/2016, the patient is transferred to the intensive care unit. The patient's oxygen requirements went up yesterday and she is currently on15 L of oxygen by nasal cannula. I opted to bring her down to the ICU. The ultrasound of the chest was not conclusive in terms of fluid and based on that I ordered a CAT scan of the chest that was done without contrast and the CAT scan showed worsening atelectatic changes in lung bases, pneumonia cannot be completely excluded. The pleural effusions were very tiny and there were not and the blood for thoracentesis. Based on that, no intervention was done. Currently she is awake and alert. She is on a combination of IV Rocephin and Flagyl.er white cell count came up to 18. Her creatinine is up to 2.1. Creatinine is stable for now. The lactic acid level was low at 1. She is awake. She is alert. The colostomy is functioning and she has adequate output at this point in time.The patient still on TPN and were going to initiate someclear liquid diet today. Reevaluated today on 02/16/2019, patient remains in the ICU, O2 saturation is marginal, still requiring a high flow nasal cannula at 15 L/m, chest x-ray shows significant airspace disease and atelectasis with consolidation at the bases bilaterally right more so than left, hence I recommended that we use intermittently BiPAP with IPAP of 12 and EPAP of 4. Continues to have leukocytosis with WBC count of 14.5, hemoglobin is 10.1 lites are normal BUN is 41 creatinine 2.01. Close to her baseline since admission. Chest x-ray is quite concerning to me, and CT of the chest was also reviewed, patient has significant bibasilar consolidation and air bronchograms noted in both lungs bilaterally more so in the right lower lobe. On 02/17/2019 patient seen in follow-up in the intensive care unit, she is off BiPAP support currently, she is on 15 L, and her pulse ox is 92-94%, either tachycardic on a monitor, hemodynamically patient is stable, she states she feels short of breath, she has a congested cough, at times she is able to produce small amount of yellowish sputum, lung sounds are positive for rhonchi, and some wheezing, urine culture was positive for Klebsiella pneumonia and E. coli, blood culture has shown no growth, patient's antibiotics have been simplified and currently patient is on Zosyn. White count is trending down, it is 13.8 on today's labs, hemoglobin is 10.2, sodium was 135, dorsiflexors were unremarkable, B1 is 41 creatinine is 1.94, profile is slightly improved, in centive spirometry effort is poor, and patient is only able to achieve 500 on the incentive spirometer today. Patient continues to be nothing by mouth, she continues on TPN, she was started on promotility agent, in the form of Reglan. Was no output from her ostomy overnight. Surgery is following. Reevaluated today on 02/18/2019, patient is still in the intensive care unit, remains on a high flow nasal cannula, she used BiPAP last night, O2 saturation remains marginal in the low 90s. Patient is hemodynamically stable, she feels fine, she seems to have a better cough today compared to the last couple of days, chest x-ray is showing slightly better aeration of the bases of her lungs, nonetheless she continues to have atelectasis/infiltrates mostly in the right lower lobe, and she has a chronically elevated right hemidiaphragm. WBC count is 12.6, left lites are normal renal profile is improving BUN is 42 creatinine is down to 1.78 compared to 1.94 yesterday and 2.19 few days ago. Her pro calcitonin level was elevated, hence the patient was kept on antibiotics for presumptive right lower lobe pneumonia. Presently on Zosyn. Reevaluated today on 02/19/2019, remains in the intensive care unit, remains on high flow nasal cannula at 15 L/m, intermittently on BiPAP at night. Patient is feeling better, however her O2 saturation remains fairly marginal in the low 90s. She is hemodynamically stable, patient had intermittent episodes of atrial fibrillation with RVR, being addressed by cardiology on the case. Chest x-ray continues to show improvement in her atelectasis and bibasilar effusions, there is definitely better aeration to the bases of her lungs, continues to have right hemidiaphragm elevation. Urine culture came back positive for Klebsiella pneumoniae and E. coli. And this has been treated. Remains on Zosyn. Patient denies any chest pain, no shortness of breath, no cough, no wheezing, she is now on metoprolol 50 mg 3 times a day and Cardizem orally was added 60 mg 3 times a day. Reevaluated today on 02/20/2019, remains in the ICU on a high flow nasal ca nnula, pulmonary status remains marginal at best. She is now on high flow at 10 L/m, continues to have intermittent episodes of A. fib with RVR, but this morning her rate seems to be better controlled. Patient is hemodynamically stable, not requiring any pressors. Labs showed WBC count of 13.8 hemoglobin is 9.6. Electrolytes are normal BUN is 49 creatinine is 1.72 improving over the last few days. It was 1.8 to yesterday. Her diet is being advanced as tolerated. Chest x-ray continues to show right lower lobe atelectasis, possible right lower lobe pneumonia. Patient remains on antibiotics in the form of Zosyn. Objective - Vital Signs Vital signs: Vital Signs Temp 98 F 02/20/19 00:00 Pulse 102 H 02/20/19 08:11 Resp 26 H 02/20/19 07:00 BP 112/81 02/20/19 07:00 Pulse Ox 96 02/20/19 07:00 Intake & Output 02/19/19 02/20/19 02/20/19 18:59 06:59 18:59 Intake Total 1945.5 1060 80 Output Total 900 1105 100 Balance 1045.5 -45 -20 Weight 72.1 kg 73 kg Intake: IV 983 1060 80 0.9 Normal saline 55 60 5 Mvi, Adult No.4 with Vit 828 900 75 K 10 ml Trace (Conc-1Ml/ Dose) 1 ml Sodium Acetate 30 meq Calcium Gluconate 1 gm Potassium Phosphate 15 mmol In Amino Acid 4. 25%-D10w 1,000 ml @ 75 mls/hr IV .BY DURATION [facility] Rx#:[id number] Piperacillin-Tazobactam 3 100 100 .375 gm In Sodium Chloride 0.9% 100 ml @ 25 mls/hr IVPB Q12HR [facility] Rx #:[id number] Intake, IV Titration 962.5 Amount Mvi, Adult No.4 with Vit 962.5 K 10 ml Trace (Conc-1Ml/ Dose) 1 ml Sodium Acetate 30 meq Calcium Gluconate 1 gm Potassium Phosphate 15 mmol In Amino Acid 4. 25%-D10w 1,000 ml @ 75 mls/hr IV .BY DURATION [facility] Rx#:[id number] Output: Urine 800 1005 100 Stool 100 Urine/Stool Mix 100 Other: Voiding Method Indwelling Catheter Indwelling Catheter - Exam GENERAL EXAM: Revealed 83-year-old female, in no distress, on high flow nasal cannula, at 10 L/m Head: Atraumatic normocephalic. EENT: PERRLA, EOMI, neck disc, dry mucous membranes, throat is clear. No neck masses no JVD no stridor. CHEST: No chest wall deformity. LUNGS: diminished breath sounds at the bases, mostly at the right base. no rhonchi and no wheezes.. CVS: S1 and S2 normal with no audible murmur, regular rhythm. ABDOMEN: Midline incision with maggy intact, colostomy functioning. SPINE: No scoliosis or deformity SKIN: No rashes CENTRAL NERVOUS SYSTEM: No focal deficits, tone is normal in all 4 extremities. EXTREMITIES: There is no peripheral edema. No clubbing, no cyanosis. Peripheral pulses are intact. - Labs CBC & Chem 7: 02/20/19 05:30 02/20/19 05:30 Labs: Abnormal Lab Results - Last 24 Hours (Table) 02/19/19 02/19/19 02/19/19 Range/Units 11:57 16:57 20:55 WBC (3.8-10.6) k/uL RBC (3.80-5.40) m/uL Hgb (11.4-16.0) gm/dL Hct (34.0-46.0) % MCHC (31.0-37.0) g/dL Neutrophils # (1.3-7.7) k/uL Lymphocytes # (1.0-4.8) k/uL Sodium (137-145) mmol/L BUN (7-17) mg/dL Creatinine (0.52-1.04) mg/dL Glucose (74-99) mg/dL POC Glucose (mg/dL) 180 H 124 H 139 H (75-99) mg/dL Calcium (8.4-10.2) mg/dL Magnesium (1.6-2.3) mg/dL Triglycerides (<150) mg/dL 02/20/19 02/20/19 02/20/19 Range/Units 05:30 05:30 06:54 WBC 13.8 H (3.8-10.6) k/uL RBC 3.31 L (3.80-5.40) m/uL Hgb 9.6 L (11.4-16.0) gm/dL Hct 30.9 L (34.0-46.0) % MCHC 30.9 L (31.0-37.0) g/dL Neutrophils # 11.0 H (1.3-7.7) k/uL Lymphocytes # 0.7 L (1.0-4.8) k/uL Sodium 134 L (137-145) mmol/L BUN 49 H (7-17) mg/dL Creatinine 1.72 H (0.52-1.04) mg/dL Glucose 159 H (74-99) mg/dL POC Glucose (mg/dL) 149 H (75-99) mg/dL Calcium 8.2 L (8.4-10.2) mg/dL Magnesium 2.4 H (1.6-2.3) mg/dL Triglycerides 177 H (<150) mg/dL Assessment and Plan Assessment: Impression: acute bowel obstruction, status post exploratory laparotomy, extensive lysis of adhesions, sigmoid colectomy, and colostomy postoperative day #8 Acute hypoxic respiratory failure suspect aspiration pneumonia, and postoperative atelectasis. Acute urinary tract infection secondary to Klebsiella pneumoniae and E. coli. Chronic atrial fibrillation. Today patient had atrial fibrillation with RVR being addressed by cardiology. Benign essential hypertension. History of hyperlipidemia. Acute on chronic renal failure, patient has chronic renal failure stage III. Improving Recommendation: Continue antibiotics/Zosyn Continue GI and DVT prophylaxis Continue cardiac meds Continue to advance diet as tolerated. Intermittent use of BiPAP. Use as needed. Incentive spirometry. Strongly advised, and the patient was instructed to use incentive spirometer. Aggressive pulmonary toileting. Prognosis remains guarded, patient will remain in the ICU, pulmonary and cardiac status remained marginal hence we'll continue to follow in the ICU. We'll continue to follow in the ICU to Time with Patient: Less than 30
--- NOTE | 2019-02-20 11:55 | P.PN ---
<Siobhan Dugan Tiffany - Last Filed: 02/20/19 11:52> Subjective Progress Note Date: 02/20/19 CHIEF COMPLAINT: Abdominal pain HISTORY OF PRESENT ILLNESS: patient is status post exploratory laparotomy, extensive lysis of adhesions, sigmoid colectomy, and end colostomy. Patient examined at the bedside in the intensive care unit. patient is awake and alert. She denies abdominal pain. Patient is tolerating diet. Denies nausea or vomiting. Oral intake remains very poor however. Patient consumed less than 25% of her breakfast. WBC 13.8. Hemoglobin 9.6. PHYSICAL EXAM: VITAL SIGNS: Reviewed GENERAL: Well-developed in no acute distress. HEENT: No sclera icterus. Extraocular movements grossly intact. Moist buccal mucosa. Head is atraumatic, normocephalic. Hears conversational speech. No nasal drainage. NECK: Supple without lymphadenopathy. CHEST: Non-labored respirations and equal bilateral excursions. CARDIOVASCULAR: Regular rate with regular rhythm. Palpable 2+ radial pulses. ABDOMEN: Soft. Nondistended. Dressing to abdomen clean dry intact. Ostomy with brown liquid stool noted. MUSCULOSKELETAL: No clubbing or cyanosis. NEUROLOGIC: No focal or lateralizing signs. Cranial nerves II through XII grossly intact. PSYCH: Appropriate affect. Alert and oriented to person, place and time. SKIN: Well perfused. Good skin turgor. ASSESSMENT: 1. Abdominal pain, status post exploratory laparotomy, extensive lysis of adhesions, sigmoid colectomy, and end colostomy PLAN: Continue daily dressing changes. Aquacel silver to open aspect of midline incision Continue diet as tolerated. Encouraged increased oral intake Once patient is consuming 50% of her meals, will wean off PPN. Nurse practitioner note has been reviewed by physician. Signing provider agrees with the documented findings, assessment, and plan of care. Objective - Vital Signs Vital signs: Vital Signs Temp 98 F 02/20/19 00:00 Pulse 102 H 02/20/19 08:11 Resp 26 H 02/20/19 07:00 BP 112/81 02/20/19 07:00 Pulse Ox 96 02/20/19 07:00 Intake & Output 02/19/19 02/20/19 02/20/19 18:59 06:59 18:59 Intake Total 1945.5 1060 80 Output Total 900 1105 100 Balance 1045.5 -45 -20 Weight 72.1 kg 73 kg 73 kg Intake: IV 983 1060 80 0.9 Normal saline 55 60 5 Mvi, Adult No.4 with Vit 828 900 75 K 10 ml Trace (Conc-1Ml/ Dose) 1 ml Sodium Acetate 30 meq Calcium Gluconate 1 gm Potassium Phosphate 15 mmol In Amino Acid 4. 25%-D10w 1,000 ml @ 75 mls/hr IV .BY DURATION [facility] Rx#:[id number] Piperacillin-Tazobactam 3 100 100 .375 gm In Sodium Chloride 0.9% 100 ml @ 25 mls/hr IVPB Q12HR [facility] Rx #:[id number] Intake, IV Titration 962.5 Amount Mvi, Adult No.4 with Vit 962.5 K 10 ml Trace (Conc-1Ml/ Dose) 1 ml Sodium Acetate 30 meq Calcium Gluconate 1 gm Potassium Phosphate 15 mmol In Amino Acid 4. 25%-D10w 1,000 ml @ 75 mls/hr IV .BY DURATION [facility] Rx#:[id number] Output: Urine 800 1005 100 Stool 100 Urine/Stool Mix 100 Other: Voiding Method Indwelling Catheter Indwelling Catheter - Labs CBC & Chem 7: 02/20/19 05:30 02/20/19 05:30 Labs: Abnormal Lab Results - Last 24 Hours (Table) 02/19/19 02/19/19 02/19/19 Range/Units 11:57 16:57 20:55 WBC (3.8-10.6) k/uL RBC (3.80-5.40) m/uL Hgb (11.4-16.0) gm/dL Hct (34.0-46.0) % MCHC (31.0-37.0) g/dL Neutrophils # (1.3-7.7) k/uL Lymphocytes # (1.0-4.8) k/uL Sodium (137-145) mmol/L BUN (7-17) mg/dL Creatinine (0.52-1.04) mg/dL Glucose (74-99) mg/dL POC Glucose (mg/dL) 180 H 124 H 139 H (75-99) mg/dL Calcium (8.4-10.2) mg/dL Magnesium (1.6-2.3) mg/dL Triglycerides (<150) mg/dL 02/20/19 02/20/1919 Range/Units 05:30 05:30 06:54 WBC 13.8 H (3.8-10.6) k/uL RBC 3.31 L (3.80-5.40) m/uL Hgb 9.6 L (11.4-16.0) gm/dL Hct 30.9 L (34.0-46.0) % MCHC 30.9 L (31.0-37.0) g/dL Neutrophils # 11.0 H (1.3-7.7) k/uL Lymphocytes # 0.7 L (1.0-4.8) k/uL Sodium 134 L (137-145) mmol/L BUN 49 H (7-17) mg/dL Creatinine 1.72 H (0.52-1.04) mg/dL Glucose 159 H (74-99) mg/dL POC Glucose (mg/dL) 149 H (75-99) mg/dL Calcium 8.2 L (8.4-10.2) mg/dL Magnesium 2.4 H (1.6-2.3) mg/dL Triglycerides 177 H (<150) mg/dL <Kiera Morrison N - Last Filed: 02/21/19 11:20> Subjective As above, patient encouraged to increase oral intake including ambulation. At this time continue peripheral nutrition Objective - Vital Signs Vital signs: Vital Signs Temp 97.8 F 02/21/19 04:00 Pulse 70 02/21/19 09:59 Resp 20 02/21/19 07:00 BP 100/51 02/21/19 07:00 Pulse Ox 93 L 02/21/19 07:00 Intake & Output 02/20/19 02/21/19 02/21/19 18:59 06:59 18:59 Intake Total 2765 755 5 Output Total 1390 1010 Balance 1375 -255 5 Weight 73 kg 72.4 kg Intake: IV 1010 160 5 0.9 Normal saline 60 60 5 Mvi, Adult No.4 with Vit 750 K 10 ml Trace (Conc-1Ml/ Dose) 1 ml Sodium Acetate 30 meq Calcium Gluconate 1 gm Potassium Phosphate 15 mmol In Amino Acid 4. 25%-D10w 1,000 ml @ 75 mls/hr IV .BY DURATION [facility] Rx#:[id number] Piperacillin-Tazobactam 3 200 100 .375 gm In Sodium Chloride 0.9% 100 ml @ 25 mls/hr IVPB Q12HR [facility] Rx #:[id number] Intake, IV Titration 955 95 Amount Fat Emulsion 20% 250 ml @ 130 20 20.833 mls/hr IV MoWeFr@ 1300 [facility] Rx#:[id number] Mvi, Adult No.4 with Vit 825 75 K 10 ml Trace (Conc-1Ml/ Dose) 1 ml Sodium Acetate 30 meq Calcium Gluconate 1 gm Potassium Phosphate 5 mmol Potassium Chloride 10 meq In Amino Acid 4.25%-D10w 1,000 ml @ 75 mls/hr IV .BY DURATION [facility] Rx#: [id number] Oral 800 500 Output: Urine 1390 910 Stool 100 Other: Voiding Method Indwelling Catheter Indwelling Catheter - Labs CBC & Chem 7: 02/21/19 05:11 02/21/19 05:11 Labs: Abnormal Lab Results - Last 24 Hours (Table) 02/20/19 02/20/19 02/20/19 Range/Units 11:59 17:10 20:46 WBC (3.8-10.6) k/uL RBC (3.80-5.40) m/uL Hgb (11.4-16.0) gm/dL Hct (34.0-46.0) % Plt Count (150-450) k/uL Neutrophils # (1.3-7.7) k/uL Lymphocytes # (1.0-4.8) k/uL Sodium (137-145) mmol/L BUN (7-17) mg/dL Creatinine (0.52-1.04) mg/dL Glucose (74-99) mg/dL POC Glucose (mg/dL) 199 H 145 H 206 H (75-99) mg/dL 02/21/19 02/21/19 02/21/19 Range/Units 05:11 05:11 06:56 WBC 14.3 H (3.8-10.6) k/uL RBC 2.81 L (3.80-5.40) m/uL Hgb 8.4 L (11.4-16.0) gm/dL Hct 26.3 L (34.0-46.0) % Plt Count 515 H (150-450) k/uL Neutrophils # 11.7 H (1.3-7.7) k/uL Lymphocytes # 0.9 L (1.0-4.8) k/uL Sodium 131 L (137-145) mmol/L BUN 52 H (7-17) mg/dL Creatinine 1.77 H (0.52-1.04) mg/dL Glucose 150 H (74-99) mg/dL POC Glucose (mg/dL) 170 H (75-99) mg/dL
[2019-02-20 12:01] LABS: Glucose,Whole Blood 199 mg/dL (75-99)
[2019-02-20] MEDS: MORPHINE SULFATE 4 MG/ML SYRINGE IVP PRN (12:03)
[2019-02-20] MEDS: FAT EMULSION 20% 250 ML IV SCH (12:14)
--- NOTE | 2019-02-20 13:37 | P.PN ---
Subjective Progress Note Date: 02/20/19 This dictation on progress note date of service 02/20/[address] Engel. Patient seen and evaluated today discussed the pain program, Patient had severe pain on advanced right hip osteoarthritis, she his surgical intervention in the right hip, even with referral to [facility]. Pain is consistent with minimal movement and exacerbate. Which added to the abdominal pain with the images and distention of the abdomen. Her colostomy bag does have a stool, but still abdomen is tympanitic and distended with percussion is tenderness present and still not complete resolution ILEUS or small bowel obstruction. Still have leukocytosis. In spite of the antibiotic, low grade of temperature 90.9 F oral. Her vital sign indicating that temperature 90.9 F oral, heart rate is fluctuating however is controlled with the atrial fibrillation and rapid ventricular response however she and From 126-94 with the underlying medication started beta ahsan Lopressor 500 mg 3 times a day, calcium channel ahsan 60 mg 3 times a day. Her respiratory rate still fluctuating 26-28. Blood pressure 118/66 fairly well controlled pulse ox 96% apparently she is on 10 later has been decreased air flow rate by pulmonary. Laboratory: White count 13.8 with hemoglobin is 9.6 and hematocrit 30.9. Platel et count is 436. Chemistry: Sodium 135, potassium 4.3, carbon dioxide 103, creatinine 1.72 which is progressively improving she had the Murphy catheter in place. And patient allowed to eat by the surgeon that there is no appetite, also patient had on the incision midline exploratory laparotomy as one spot not healing yet and she had no reaction otherwise to the stables and the rest of the abdome Estimated glomerular filtration rate is 27 which is still having chronic kidney disease stage IV, mild hyponatremia, hyperglycemia and covered with insulin to scale, her blood sugar ranging between [id number], adding long-acting insulin i.e. Lantus or Levemir will not be used at this time as the possibility of TPN will be sore and decreased or stopped once the patient eat. Meanwhile because of hypoglycemia will be very obvious as the blood glucose not exceeding the 250 mg/dL. Also insulin drip is not indicated in the sternal again to avoid hypoglycemia. Regarding of the pain and with the 2 sites on his right hip and the second is a abdomen with a mild distention due to the small bowel probably added to chronic kidney disease stage IV, femoroperoneal patch will be appropriate and a small dose will start her on fentanyl patch 25 g per hour for 72 and will discontinue the Dilaudid with the chronic kidney disease stage IV metabolites will be hydromorphone and CAN cause neurotoxicity and tremors and muscle fasciculation. Patient is still on morphine sulfate as needed but she is also on hydrocodone as well. When she moved the pain as 10 over 10. Oyat-kg-[id number] examination: She is conscious alert oriented. HEENT she lost her appetite and she try to eat and she is in a regular diet. Neck was supple no JVD no thyromegaly no lymphadenopathy trachea midline. Chest: Has symmetrical with significant improvement with the underlying atelectasis and she is also on incentive spirometry. Heart: Baseline atrial fibrillation however patient medicated for controlled the rate. Abdomen: Colostomy bag has stool, still distended, with the percussion tympanitic, no gas presented in the colostomy bag. Extremities: Patient on antithrombotic inflatable stocking, no edema and pulses is intact. Neurologically: No lateralizing sign. But she had severe pain in the right hip with the advanced osteoarthritis insulin prior to the surgery. Assessment: General the patient improving, status post exploratory laparotomy with colostomy. Status post previous ileus and gradual improvement and positive michael wel sounds no complete resolution. Chronic kidney disease stage IV Atrial fibrillation fluctuating rate. Diastolic congestive heart failure Right hip severe pain with the underlying advanced osteoarthritis. Leukocytosis Segmental atelectasis, aspiration pneumonitis appeared to be improving Plan: Admitting to pain medication Duragesic patch fentanyl 25 g per hour for 72 hours, continue the current plan of treatment. Objective - Vital Signs Vital signs: Vital Signs Temp 99 F 02/20/19 12:00 Pulse 94 02/20/19 12:06 Resp 26 H 02/20/19 12:00 BP 118/66 02/20/19 12:00 Pulse Ox 96 02/20/19 12:00 Intake & Output 02/19/19 02/20/19 02/20/19 18:59 06:59 18:59 Intake Total 1945.5 1060 520 Output Total 900 1105 575 Balance 1045.5 -45 -55 Weight 72.1 kg 73 kg 73 kg Intake: IV 983 1060 510 0.9 Normal saline 55 60 30 Mvi, Adult No.4 with Vit 828 900 380 K 10 ml Trace (Conc-1Ml/ Dose) 1 ml Sodium Acetate 30 meq Calcium Gluconate 1 gm Potassium Phosphate 15 mmol In Amino Acid 4. 25%-D10w 1,000 ml @ 75 mls/hr IV .BY DURATION [facility] Rx#:[id number] Piperacillin-Tazobactam 3 100 100 100 .375 gm In Sodium Chloride 0.9% 100 ml @ 25 mls/hr IVPB Q12HR [facility] Rx #:[id number] Intake, IV Titration 962.5 10 Amount Fat Emulsion 20% 250 ml @ 10 20.833 mls/hr IV MoWeFr@ 1300 [facility] Rx#:[id number] Mvi, Adult No.4 with Vit 962.5 K 10 ml Trace (Conc-1Ml/ Dose) 1 ml Sodium Acetate 30 meq Calcium Gluconate 1 gm Potassium Phosphate 15 mmol In Amino Acid 4. 25%-D10w 1,000 ml @ 75 mls/hr IV .BY DURATION [facility] Rx#:[id number] Output: Urine 800 1005 575 Stool 100 Urine/Stool Mix 100 Other: Voiding Method Indwelling Catheter Indwelling Catheter - Labs CBC & Chem 7: 02/20/19 05:30 02/20/19 05:30 Labs: Abnormal Lab Results - Last 24 Hours (Table) 02/19/19 02/19/19 02/20/19 Range/Units 16:57 20:55 05:30 WBC (3.8-10.6) k/uL RBC (3.80-5.40) m/uL Hgb (11.4-16.0) gm/dL Hct (34.0-46.0) % MCHC (31.0-37.0) g/dL Neutrophils # (1.3-7.7) k/uL Lymphocytes # (1.0-4.8) k/uL Sodium 134 L (137-145) mmol/L BUN 49 H (7-17) mg/dL Creatinine 1.72 H (0.52-1.04) mg/dL Glucose 159 H (74-99) mg/dL POC Glucose (mg/dL) 124 H 139 H (75-99) mg/dL Calcium 8.2 L (8.4-10.2) mg/dL Magnesium 2.4 H (1.6-2.3) mg/dL Triglycerides 177 H (<150) mg/dL 02/20/19 02/20/19 02/20/19 Range/Units 05:30 06:54 11:59 WBC 13.8 H (3.8-10.6) k/uL RBC 3.31 L (3.80-5.40) m/uL Hgb 9.6 L (11.4-16.0) gm/dL Hct 30.9 L (34.0-46.0) % MCHC 30.9 L (31.0-37.0) g/dL Neutrophils # 11.0 H (1.3-7.7) k/uL Lymphocytes # 0.7 L (1.0-4.8) k/uL Sodium (137-145) mmol/L BUN (7-17) mg/dL Creatinine (0.52-1.04) mg/dL Glucose (74-99) mg/dL POC Glucose (mg/dL) 149 H 199 H (75-99) mg/dL Calcium (8.4-10.2) mg/dL Magnesium (1.6-2.3) mg/dL Triglycerides (<150) mg/dL
[2019-02-20] MEDS: APIXABAN 2.5 MG TABLET PO SCH ×2 (15:07→21:52)
[2019-02-20 17:11] LABS: Glucose,Whole Blood 145 mg/dL (75-99)
[2019-02-20 20:46] LABS: Glucose,Whole Blood 206 mg/dL (75-99)
[2019-02-20] MEDS: DULoxetine HCL 60 MG CAPSULE.DR PO SCH (21:58)
[2019-02-20] MEDS: ATORVASTATIN 10 MG TAB PO SCH (21:59)
[2019-02-21] MEDS: PIPERACILLIN-TAZOBACTAM 3.375 GM in SODIUM CHLORIDE 0.9% 100 ML IVPB SCH ×3 (02:21→15:23)
[2019-02-21 05:44] LABS: Calcium 8.4 mg/dL (8.4-10.2); Magnesium 2.3 mg/dL (1.6-2.3); Phosphorus 4.2 mg/dL (2.5-4.5); Potassium 4.7 mmol/L (3.5-5.1)
[2019-02-21 05:51] LABS: Basophils % (A) 0 %; Eosinophils # (A) 0.5 k/uL (0-0.7); Eosinophils % (A) 4 %; HCT 26.3 % (34.0-46.0); HGB 8.4 gm/dL (11.4-16.0); Hypochromasia Slight; Lymphocytes # (A) 0.9 k/uL (1.0-4.8); Lymphocytes % (A) 6 %; MCH 29.9 pg (25.0-35.0); MCHC 31.9 g/dL (31.0-37.0); MCV 93.6 fL (80.0-100.0); Mean Platelet Volume 8.6; Monocytes # (A) 0.8 k/uL (0-1.0); Monocytes % (A) 5 %; Neutrophils # (A) 11.7 k/uL (1.3-7.7); Neutrophils % (A) 82 %; Platelet Count 515 k/uL (150-450); RBC 2.81 m/uL (3.80-5.40); RDW 14.1 % (11.5-15.5); WBC 14.3 k/uL (3.8-10.6)
[2019-02-21 06:58] LABS: Glucose,Whole Blood 170 mg/dL (75-99)
[2019-02-21] MEDS: INSULIN ASPART (NovoLOG) 100 UNIT/ML VIAL SQ SCH ×3 (08:02→16:59)
[2019-02-21] MEDS: METOPROLOL TARTRATE 50 MG TAB PO SCH ×2 (08:16→15:24)
[2019-02-21] MEDS: DILTIAZEM ORAL 60 MG TAB PO SCH ×2 (08:16→15:24)
[2019-02-21] MEDS: APIXABAN 2.5 MG TABLET PO SCH (08:16)
--- NOTE | 2019-02-21 08:32 | P.PN ---
Subjective Patient is seen in follow-up for acute kidney injury on chronic kidney disease. Renal function is stable. Underwent exploratory laparotomy with sigmoid colectomy and end colostomy this admission. Oral intake is fair. She is maintained on TPN which is running at 75 mL an hour. Vital signs are stable. General: The patient appeared well nourished and normally developed. HEENT: Head exam is unremarkable. Neck is without jugular venous distension. LUNGS: Lungs are clear to auscultation and percussion. Breath sounds decreased. HEART: Rate and Rhythm are regular. First and second heart sounds normal. No murmurs, rubs or gallops. ABDOMEN: Bowel sounds present. Soft. EXTREMITITES: No clubbing, cyanosis, or edema. Objective - Vital Signs Vital signs: Vital Signs Temp 97.8 F 02/21/19 04:00 Pulse 74 02/21/19 07:00 Resp 20 02/21/19 07:00 BP 100/51 02/21/19 07:00 Pulse Ox 93 L 02/21/19 07:00 Intake & Output 02/20/19 02/21/19 02/21/19 18:59 06:59 18:59 Intake Total 2765 755 5 Output Total 1390 1010 Balance 1375 -255 5 Weight 73 kg 72.4 kg Intake: IV 1010 160 5 0.9 Normal saline 60 60 5 Mvi, Adult No.4 with Vit 750 K 10 ml Trace (Conc-1Ml/ Dose) 1 ml Sodium Acetate 30 meq Calcium Gluconate 1 gm Potassium Phosphate 15 mmol In Amino Acid 4. 25%-D10w 1,000 ml @ 75 mls/hr IV .BY DURATION [facility] Rx#:[id number] Piperacillin-Tazobactam 3 200 100 .375 gm In Sodium Chloride 0.9% 100 ml @ 25 mls/hr IVPB Q12HR [facility] Rx #:[id number] Intake, IV Titration 955 95 Amount Fat Emulsion 20% 250 ml @ 130 20 20.833 mls/hr IV MoWeFr@ 1300 [facility] Rx#:[id number] Mvi, Adult No.4 with Vit 825 75 K 10 ml Trace (Conc-1Ml/ Dose) 1 ml Sodium Acetate 30 meq Calcium Gluconate 1 gm Potassium Phosphate 5 mmol Potassium Chloride 10 meq In Amino Acid 4.25%-D10w 1,000 ml @ 75 mls/hr IV .BY DURATION [facility] Rx#: [id number] Oral 800 500 Output: Urine 1390 910 Stool 100 Other: Voiding Method Indwelling Catheter Indwelling Catheter - Labs CBC & Chem 7: 02/21/19 05:11 02/21/19 05:11 Labs: Abnormal Lab Results - Last 24 Hours (Table) 02/20/19 02/20/19 02/20/19 Range/Units 11:59 17:10 20:46 WBC (3.8-10.6) k/uL RBC (3.80-5.40) m/uL Hgb (11.4-16.0) gm/dL Hct (34.0-46.0) % Plt Count (150-450) k/uL Neutrophils # (1.3-7.7) k/uL Lymphocytes # (1.0-4.8) k/uL Sodium (137-145) mmol/L BUN (7-17) mg/dL Creatinine (0.52-1.04) mg/dL Glucose (74-99) mg/dL POC Glucose (mg/dL) 199 H 145 H 206 H (75-99) mg/dL 02/21/19 02/21/19 02/21/19 Range/Units 05:11 05:11 06:56 WBC 14.3 H (3.8-10.6) k/uL RBC 2.81 L (3.80-5.40) m/uL Hgb 8.4 L (11.4-16.0) gm/dL Hct 26.3 L (34.0-46.0) % Plt Count 515 H (150-450) k/uL Neutrophils # 11.7 H (1.3-7.7) k/uL Lymphocytes # 0.9 L (1.0-4.8) k/uL Sodium 131 L (137-145) mmol/L BUN 52 H (7-17) mg/dL Creatinine 1.77 H (0.52-1.04) mg/dL Glucose 150 H (74-99) mg/dL POC Glucose (mg/dL) 170 H (75-99) mg/dL Assessment and Plan Plan: Assessment: 1. Acute kidney injury mostly prerenal improved with IV hydration. Renal function stable. 2. Chronic kidney disease stage IV with baseline creatinine near 1.7-1.9 secondary to nephrosclerosis and left renal atrophy. 3. S/p exp lap with sigmoid colectomy and end colostomy 02/12/19. Maintained on TPN. 4. Neurogenic bladder. Patient performs self catheterizations 4-5 times daily. Now has Murphy. 5. Metabolic alkalosis secondary to hydration ion losses from NG output. Resolved. 6. Hypertension with chronic kidney disease. Blood pressure on the lower side. 7. UTI with urine culture positive for Klebsiella and E. coli maintained on antibiotics. 8. Hyponatremia secondary to poor solute intake. 9. A-fib maintained on Lopressor and Cardizem. Also on anticoagulation. Plan: Encouraged oral intake. 1.5 L free water restriction. Avoid nephrotoxins. Continue to monitor renal function and urine output.
[2019-02-21] MEDS: BUDESONIDE 0.5 MG/2 ML NEBU INHALATION SCH ×2 (09:41→21:46)
[2019-02-21] MEDS: IPRATROPIUM-ALBUTEROL 3 ML NEB INHALATION SCH ×4 (09:41→21:46)
[2019-02-21 11:47] LABS: Glucose,Whole Blood 126 mg/dL (75-99)
[2019-02-21] MEDS: 1: MVI, ADULT NO.4 WITH VIT K 10 ML, TRACE (CONC-1ML/DOSE) 1 ML, SODIUM ACETATE 30 MEQ, IV SCH ×8 (12:00)
--- NOTE | 2019-02-21 12:00 | PN ---
PROGRESS NOTE Mrs. Angelica Ling is a lady with paroxysmal atrial fib, hypertension, hyperlipidemia, had a recent bowel surgery. She is now back on Eliquis 2.5 mg b.i.d. She is actually in a sinus rhythm today, resting comfortably. Vital signs stable. No JVD. S1-S2 heard normally. Short systolic murmur noted. Lungs revealed decent air entry. Abdomen is soft. Colostomy is evident. Lower extremities reveal diminished pulses. Central nervous system grossly no focal deficits. From a cardiac standpoint, she is on optimal medications. She can be discharged whenever it is okay by the surgeon. She should continue her current medical regimen. She has history of hypertension, diastolic heart failure, paroxysmal atrial fib, now in sinus rhythm, had a colectomy and she is quite stable from cardiac standpoint. We will see her as needed. MMODL / IJN: [id number] /
--- NOTE | 2019-02-21 12:53 | P.PN ---
Subjective Progress Note Date: 02/21/19 Principal diagnosis: Acute bowel obstruction status post laparotomy extensive was of adhesions and sigmoid colectomy and end colostomy postoperative day # 9 This is a pleasant 83-year-old female patient admitted back on 02/07/2019 with complaints of constipation and abdominal discomfort. She had not moved her bowels for several days prior. Abdominal x-rays did show evidence of constipation. Fleet enema and MiraLAX at home were unsuccessful. She was subsequently admitted for abdominal bloating and discomfort. She was found to have a colon obstruction and yesterday had undergone exposure laparotomy, extensive lysis of adhesions, sigmoid colectomy, end colostomy done by Dr. Miller. She remained hypoxic postoperatively and was placed on BiPAP with an FiO2 of 80%. We're consulted for the same. No chest x-ray was done. She is seen today on the selective care unit. She is currently awake and alert in no acute distress. She is having some ongoing abdominal discomfort. She has a midline incision with maggy intact and a colostomy with stool present. She is currently on 6 L high flow nasal cannula and maintaining O2 saturation in the mid 90s. She denies any worsening shortness of breath, cough or congestion. Urine culture was positive for Klebsiella pneumoniae and E coli. Blood cultures had revealed no growth. White count 12.8. Hemoglobin 11.6. Sodium 148. Potassium 3.9. Creatinine 2.20. She has D5.45 running at 100 ML's per hour. She is currently on ceftriaxone and Flagyl. PPN and lipids have been ordered. The patient was having issues with atrial fibrillation preoperatively and was initially on a heparin drip. The plan from cardiology is to initiate Eliquis once cleared surgically. On today's evaluation of 02/14/2019 I was asked even with this patient and the patient was found to be more lethargic and short of breath. I the patient did she is relatively comfortable on oxygen at 4 L. Nevertheless, she states that she wants to and she is unable to take this ongoing treatment any further. In terms of her cardiac condition, she is in atrial fibrillation with rapid ventricular response and a current heart rate is around 120-140. She has a Murphy catheter urine output is in order of 30 mL an hour. She had a chest x-ray that showed increased opacification of the lung bases. Ultrasound of the chest was done that showed small pockets and based on the ultrasound these markers were not and minimal 4 thoracentesis. She is on Diprivan running at the rate of 75 mL an hour. She is also on IV fluids running at 75 mL an hour of normal saline. The patient has a positive fluid balance of 1.1 L. She has a creatinine of 2.4 with a mean of 34. ABCDs not done this morning. She has a positive output and her colostomy bag. The surgical wound site is dry clean and intact. She is afebrile for now. on 02/16/2016, the patient is transferred to the intensive care unit. The patient's oxygen requirements went up yesterday and she is currently on15 L of oxygen by nasal cannula. I opted to bring her down to the ICU. The ultrasound of the chest was not conclusive in terms of fluid and based on that I ordered a CAT scan of the chest that was done without contrast and the CAT scan showed worsening atelectatic changes in lung bases, pneumonia cannot be completely excluded. The pleural effusions were very tiny and there were not and the blood for thoracentesis. Based on that, no intervention was done. Currently she is awake and alert. She is on a combination of IV Rocephin and Flagyl.er white cell count came up to 18. Her creatinine is up to 2.1. Creatinine is stable for now. The lactic acid level was low at 1. She is awake. She is alert. The colostomy is functioning and she has adequate output at this point in time.The patient still on TPN and were going to initiate someclear liquid diet today. Reevaluated today on 02/16/2019, patient remains in the ICU, O2 saturation is marginal, still requiring a high flow nasal cannula at 15 L/m, chest x-ray shows significant airspace disease and atelectasis with consolidation at the bases bilaterally right more so than left, hence I recommended that we use intermittently BiPAP with IPAP of 12 and EPAP of 4. Continues to have leukocytosis with WBC count of 14.5, hemoglobin is 10.1 lites are normal BUN is 41 creatinine 2.01. Close to her baseline since admission. Chest x-ray is quite concerning to me, and CT of the chest was also reviewed, patient has significant bibasilar consolidation and air bronchograms noted in both lungs bilaterally more so in the right lower lobe. On 02/17/2019 patient seen in follow-up in the intensive care unit, she is off BiPAP support currently, she is on 15 L, and her pulse ox is 92-94%, either tachycardic on a monitor, hemodynamically patient is stable, she states she feels short of breath, she has a congested cough, at times she is able to produce small amount of yellowish sputum, lung sounds are positive for rhonchi, and some wheezing, urine culture was positive for Klebsiella pneumonia and E. coli, blood culture has shown no growth, patient's antibiotics have been simplified and currently patient is on Zosyn. White count is trending down, it is 13.8 on today's labs, hemoglobin is 10.2, sodium was 135, dorsiflexors were unremarkable, B1 is 41 creatinine is 1.94, profile is slightly improved, in centive spirometry effort is poor, and patient is only able to achieve 500 on the incentive spirometer today. Patient continues to be nothing by mouth, she continues on TPN, she was started on promotility agent, in the form of Reglan. Was no output from her ostomy overnight. Surgery is following. Reevaluated today on 02/18/2019, patient is still in the intensive care unit, remains on a high flow nasal cannula, she used BiPAP last night, O2 saturation remains marginal in the low 90s. Patient is hemodynamically stable, she feels fine, she seems to have a better cough today compared to the last couple of days, chest x-ray is showing slightly better aeration of the bases of her lungs, nonetheless she continues to have atelectasis/infiltrates mostly in the right lower lobe, and she has a chronically elevated right hemidiaphragm. WBC count is 12.6, left lites are normal renal profile is improving BUN is 42 creatinine is down to 1.78 compared to 1.94 yesterday and 2.19 few days ago. Her pro calcitonin level was elevated, hence the patient was kept on antibiotics for presumptive right lower lobe pneumonia. Presently on Zosyn. Reevaluated today on 02/19/2019, remains in the intensive care unit, remains on high flow nasal cannula at 15 L/m, intermittently on BiPAP at night. Patient is feeling better, however her O2 saturation remains fairly marginal in the low 90s. She is hemodynamically stable, patient had intermittent episodes of atrial fibrillation with RVR, being addressed by cardiology on the case. Chest x-ray continues to show improvement in her atelectasis and bibasilar effusions, there is definitely better aeration to the bases of her lungs, continues to have right hemidiaphragm elevation. Urine culture came back positive for Klebsiella pneumoniae and E. coli. And this has been treated. Remains on Zosyn. Patient denies any chest pain, no shortness of breath, no cough, no wheezing, she is now on metoprolol 50 mg 3 times a day and Cardizem orally was added 60 mg 3 times a day. Reevaluated today on 02/20/2019, remains in the ICU on a high flow nasal ca nnula, pulmonary status remains marginal at best. She is now on high flow at 10 L/m, continues to have intermittent episodes of A. fib with RVR, but this morning her rate seems to be better controlled. Patient is hemodynamically stable, not requiring any pressors. Labs showed WBC count of 13.8 hemoglobin is 9.6. Electrolytes are normal BUN is 49 creatinine is 1.72 improving over the last few days. It was 1.8 to yesterday. Her diet is being advanced as tolerated. Chest x-ray continues to show right lower lobe atelectasis, possible right lower lobe pneumonia. Patient remains on antibiotics in the form of Zosyn. Reevaluated today on 02/21/2019, remains in the ICU, steadily improving, feeling much better today, and I was able to cut down her O2 flow to 6 L/m. Patient is in sinus rhythm, asymptomatic, no cough no wheezing no shortness of breath, feels fairly much better compared to the last few days. WBC count is 14.3 hemoglobin is 8.4 electrolytes are normal BUN is 52 creatinine is 1.77, no chest x-ray was done today Objective - Vital Signs Vital signs: Vital Signs Temp 98.2 F 02/21/19 08:00 Pulse 73 02/21/19 11:00 Resp 16 02/21/19 11:00 BP 112/55 02/21/19 11:00 Pulse Ox 94 L 02/21/19 11:00 Intake & Output 02/20/19 02/21/19 02/21/19 18:59 06:59 18:59 Intake Total 2765 755 225 Output Total 1390 1010 180 Balance 1375 -255 45 Weight 73 kg 72.4 kg Intake: IV 1010 160 105 0.9 Normal saline 60 60 5 Mvi, Adult No.4 with Vit 750 K 10 ml Trace (Conc-1Ml/ Dose) 1 ml Sodium Acetate 30 meq Calcium Gluconate 1 gm Potassium Phosphate 15 mmol In Amino Acid 4. 25%-D10w 1,000 ml @ 75 mls/hr IV .BY DURATION [facility] Rx#:[id number] Piperacillin-Tazobactam 3 200 100 100 .375 gm In Sodium Chloride 0.9% 100 ml @ 25 mls/hr IVPB Q12HR [facility] Rx #:[id number] Intake, IV Titration 955 95 Amount Fat Emulsion 20% 250 ml @ 130 20 20.833 mls/hr IV MoWeFr@ 1300 [facility] Rx#:[id number] Mvi, Adult No.4 with Vit 825 75 K 10 ml Trace (Conc-1Ml/ Dose) 1 ml Sodium Acetate 30 meq Calcium Gluconate 1 gm Potassium Phosphate 5 mmol Potassium Chloride 10 meq In Amino Acid 4.25%-D10w 1,000 ml @ 75 mls/hr IV .BY DURATION [facility] Rx#: [id number] Oral 800 500 120 Output: Urine 1390 910 180 Stool 100 Other: Voiding Method Indwelling Catheter Indwelling Catheter - Exam GENERAL EXAM: Revealed 83-year-old female, in no distress, placed on 6 L high flow nasal cannula Head: Atraumatic normocephalic. EENT: PERRLA, EOMI, neck disc, dry mucous membranes, throat is clear. No neck masses no JVD no stridor. CHEST: No chest wall deformity. LUNGS: diminished breath sounds at the bases, mostly at the right base. no rhonchi and no wheezes.. CVS: S1 and S2 normal with no audible murmur, regular rhythm. ABDOMEN: Midline incision with maggy intact, colostomy functioning. SPINE: No scoliosis or deformity SKIN: No rashes CENTRAL NERVOUS SYSTEM: No focal deficits, tone is normal in all 4 extremities. EXTREMITIES: There is no peripheral edema. No clubbing, no cyanosis. Peripheral pulses are intact. - Labs CBC & Chem 7: 02/21/19 05:11 02/21/19 05:11 Labs: Abnormal Lab Results - Last 24 Hours (Table) 02/20/19 02/20/19 02/21/19 Range/Units 17:10 20:46 05:11 WBC (3.8-10.6) k/uL RBC (3.80-5.40) m/uL Hgb (11.4-16.0) gm/dL Hct (34.0-46.0) % Plt Count (150-450) k/uL Neutrophils # (1.3-7.7) k/uL Lymphocytes # (1.0-4.8) k/uL Sodium 131 L (137-145) mmol/L BUN 52 H (7-17) mg/dL Creatinine 1.77 H (0.52-1.04) mg/dL Glucose 150 H (74-99) mg/dL POC Glucose (mg/dL) 145 H 206 H (75-99) mg/dL 02/21/19 02/21/19 02/21/19 Range/Units 05:11 06:56 11:46 WBC 14.3 H (3.8-10.6) k/uL RBC 2.81 L (3.80-5.40) m/uL Hgb 8.4 L (11.4-16.0) gm/dL Hct 26.3 L (34.0-46.0) % Plt Count 515 H (150-450) k/uL Neutrophils # 11.7 H (1.3-7.7) k/uL Lymphocytes # 0.9 L (1.0-4.8) k/uL Sodium (137-145) mmol/L BUN (7-17) mg/dL Creatinine (0.52-1.04) mg/dL Glucose (74-99) mg/dL POC Glucose (mg/dL) 170 H 126 H (75-99) mg/dL Assessment and Plan Assessment: Impression: acute bowel obstruction, status post exploratory laparotomy, extensive lysis of adhesions, sigmoid colectomy, and colostomy postoperative day #9 Acute hypoxic respiratory failure suspect aspiration pneumonia, and postoperative atelectasis. Acute urinary tract infection secondary to Klebsiella pneumoniae and E. coli. Chronic atrial fibrillation. Today patient had atrial fibrillation with RVR being addressed by cardiology. Benign essential hypertension. History of hyperlipidemia. Acute on chronic renal failure, patient has chronic renal failure stage III. Improving Recommendation: Continue antibiotics/Zosyn Continue GI and DVT prophylaxis Continue cardiac meds advance diet as tolerated. Intermittent use of BiPAP. Keep at bedside Incentive spirometry. . Continue Aggressive pulmonary toileting. Titrate FiO2 down as tolerated. Transfer patient out of the ICU to a monitor bed, could be remote telemetry. We'll continue to follow Time with Patient: Less than 30
--- NOTE | 2019-02-21 14:00 | P.PN ---
Subjective Progress Note Date: 02/21/19 Principal diagnosis: mechanical obstruction with small bowel and distended abdomen with history of adhesions in the past. The progress note dictated on 02/08/2090 by Patient with history notable bowel movement or stool or passing flatus for more than one week duration x-ray indicating small bowel mechanical obstruction. And patient currently nothing by mouth with NG tube which she did some relief. Her vital sign temperature 90.8 orally F Fahrenheit and her pulse rate 80 and she developed on the surgical floor atrial fibrillation with a rate of 1:30 P 8/m patient transferred to monitoring analyst floor with cardiology consultation which she was started on cardiac exam drip. And seen by Dr. ISATU Zamudio. Respiratory rate 16 and her blood pressure is hypertensive in spite of trial of medication 187/84. She is on nasal cannula 2 L of oxygen with a pulse ox 95%. current laboratories indicating that her WBC 5.3 with a hemoglobin 11.6, her platelet count 414.next is her PTT 32.6with the normal range 30.6. Minimally elevated. Chemistry indicating sodium 144 potassium 3.8 chloride 108 carbon dioxid 28, anion gap 8, BUN 20, creatinine 1.94, EGFR 23 with chronic kidney disease stage IV. Glucose 131AST and LT normal alk phos 137 total protein 6.1 and albumin 3.4 thyroid function is normal and the free T3 some little bit lower than normal that is because of her illness Nephrology evaluation and assessment indicating patient with the UTI Klebsiella pneumonia and E. coli treated according to the culture with the assessment acute kidney injury possibly prerenal improved with hydration. Chronic kidney disease stage IV with the creatinine near 2 secondary to hydronephrosis and left renal atrophy. #3 abdominal pain with questionable diverticulitis and chronic obstruction and NG tube for decompression. Neurogenic bladder and uses a catheterization 4-5 a day metabolic acidosis and she is on bicarb hypertension is controlled and UTI. Physical exam patient status post barium enema and patient the result reviewed by Dr. Sahu and his impression will be discussed with the family. HEENT was negative neck was supple and chest was clear and the heart was currently controlled atrophic And abdomen is tender distended and with the small bowel obstruction extremities no edema. Assessment small bowel obstruction mechanical and high fall to the patient should have surgical intervention. However this is a surgical case and up to the family and the surgeon. Progress note date of service 02/21/2019. Dictation by Dr. Engel. Patient seen and evaluated [id number] and discussed with her the future management. Laboratory: CBC 14.3, hemoglobin 8.4 hematocrit 26.3, platelet 515. Chemistry: Sodium 131, potassium 4.7, carbon dioxide 22 and chloride 102, her BUN 52 and creatinine 1.77, blood sugar 150 glucose on coverage with the subcu insulin to scale. Her hemoglobin A1c dated 02/18/2019 5.9, patient never been diabetic in the past however this is the effect of TPN. Phosphate 4.2 and magnesium normalize 2.3. Triglyceride 177 with that due to effect of Intralipid. Her temperature 98.2 F oral, atrial fibrillation now change it to regular sinus rhythm with a rate average of 70 bpm. And blood pressure fluctuating 112/55- 104/58 and the pulse ox was 94 and has been adjusted to 6 L/m as patient doing well from 10 L/m. Respiratory rate 16/m and spontaneous. Lost chest x-ray was done on 02/20/2019 yesterday. With the impression cardiomegaly with elevated right hemidiaphragm, bibasilar infiltrate or atelectasis, patient on antibiotic Zosyn IV piggyback, with the consideration of possible pneumonitis secondary to aspiration as well as the atelectasis and she is on incentive spirometry as well. 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 As well as the recent exploratory laparotomy and left colostomy with the underlying small bowel obstruction as well as colonic obstruction. Patient also has underlying chronic kidney disease stage IV which currently monitored by nephrology and currently stabilized with a creatinine improved. On the examination today HEENT was negative and she had upper plate partial was need to be cleaned and to be used as she is started on diet however she is not eating much of diet and that she is on the TPN. Neck was supple no JVD no thyromegaly no lymphadenopathy. Trachea midline. Chest has symmetrical with the right hemidiaphragm elevation and presence of at electasis bilateral, no fever no chills. Her lung sounds up lung reeder stable however diminished on the lower lung reeder with the elevated hemidiaphragm on the right side. Heart: Regular sinus rhythm no palpitation and converted from atrial fibrillation to sinus rhythm with the current treatment. Abdomen is soft the pain and tenderness has been markedly improved she has distention of the abdomen is still tympanitic and no gas in the pouch but there is some stool coming. And the bowel sound was present Extremity on a thrombotic stocking inflatable, pulses is intact bilateral, patient resumed on her anticoagulant with that and requests. Cardiology. No farther hematuria, patient has Murphy catheter with the neurogenic bladder. Neurologically stable Assessment: Patient is improving progressively, she is on TPN, she still not eating. Pain is controlled. Plan: Continue the current treatment and the plan. Objective - Vital Signs Vital signs: Vital Signs Temp 98.2 F 02/21/19 08:00 Pulse 69 02/21/19 13:02 Resp 16 02/21/19 11:00 BP 112/55 02/21/19 11:00 Pulse Ox 94 L 02/21/19 11:00 Intake & Output 02/20/19 02/21/19 02/21/19 18:59 06:59 18:59 Intake Total 2765 755 455 Output Total 1390 1010 280 Balance 1375 -255 175 Weight 73 kg 72.4 kg Intake: IV 1010 160 115 0.9 Normal saline 60 60 15 Mvi, Adult No.4 with Vit 750 K 10 ml Trace (Conc-1Ml/ Dose) 1 ml Sodium Acetate 30 meq Calcium Gluconate 1 gm Potassium Phosphate 15 mmol In Amino Acid 4. 25%-D10w 1,000 ml @ 75 mls/hr IV .BY DURATION [facility] Rx#:[id number] Piperacillin-Tazobactam 3 200 100 100 .375 gm In Sodium Chloride 0.9% 100 ml @ 25 mls/hr IVPB Q12HR [facility] Rx #:[id number] Intake, IV Titration 955 95 Amount Fat Emulsion 20% 250 ml @ 130 20 20.833 mls/hr IV MoWeFr@ 1300 [facility] Rx#:[id number] Mvi, Adult No.4 with Vit 825 75 K 10 ml Trace (Conc-1Ml/ Dose) 1 ml Sodium Acetate 30 meq Calcium Gluconate 1 gm Potassium Phosphate 5 mmol Potassium Chloride 10 meq In Amino Acid 4.25%-D10w 1,000 ml @ 75 mls/hr IV .BY DURATION [facility] Rx#: [id number] Oral 800 500 340 Output: Urine 1390 910 280 Stool 100 Other: Voiding Method Indwelling Catheter Indwelling Catheter - Labs CBC & Chem 7: 02/21/19 05:11 02/21/19 05:11 Labs: Abnormal Lab Results - Last 24 Hours (Table) 02/20/19 02/20/19 02/21/19 Range/Units 17:10 20:46 05:11 WBC (3.8-10.6) k/uL RBC (3.80-5.40) m/uL Hgb (11.4-16.0) gm/dL Hct (34.0-46.0) % Plt Count (150-450) k/uL Neutrophils # (1.3-7.7) k/uL Lymphocytes # (1.0-4.8) k/uL Sodium 131 L (137-145) mmol/L BUN 52 H (7-17) mg/dL Creatinine 1.77 H (0.52-1.04) mg/dL Glucose 150 H (74-99) mg/dL POC Glucose (mg/dL) 145 H 206 H (75-99) mg/dL 02/21/19 02/21/19 02/21/19 Range/Units 05:11 06:56 11:46 WBC 14.3 H (3.8-10.6) k/uL RBC 2.81 L (3.80-5.40) m/uL Hgb 8.4 L (11.4-16.0) gm/dL Hct 26.3 L (34.0-46.0) % Plt Count 515 H (150-450) k/uL Neutrophils # 11.7 H (1.3-7.7) k/uL Lymphocytes # 0.9 L (1.0-4.8) k/uL Sodium (137-145) mmol/L BUN (7-17) mg/dL Creatinine (0.52-1.04) mg/dL Glucose (74-99) mg/dL POC Glucose (mg/dL) 170 H 126 H (75-99) mg/dL
--- NOTE | 2019-02-21 14:17 | P.PN ---
Subjective Progress Note Date: 02/21/19 CHIEF COMPLAINT: Colon obstruction due to diverticulitis HISTORY OF PRESENT ILLNESS: The patient is a 83-year-old female status post laparotomy with sigmoid colectomy and end colostomy due to colon obstruction from diverticulitis. She is in intensive care unit. Oral intake has been subpar but she is now eating more. She has history of atrial fibrillation with RVR now controlled. ROS: No reports of nausea and vomiting. No fevers or chills. No new chest pain. PHYSICAL EXAM: VITAL SIGNS: Reviewed CONSTITUTIONAL: Well developed and in no acute distress. EYES: Conjuctivae without sclera icterus. Extraocular movements grossly intact. HEAD, EARS, NOSE, THROAT: Moist buccal mucosa. Head is atraumatic, normocephalic. Hears conversational speech. No nasal drainage. NECK: Supple RESPIRATORY: Non-labored respirations and equal bilateral excursions. CARDIOVASCULAR: Palpable 2+ radial pulses. ABDOMEN: Soft. Non-tender. MUSCULOSKELETAL: No gross deformity of the lower extremities noted. No clubbing. No cyanosis. SKIN: Good skin turgor. Well perfused. Multiple small lacerations along the left forearm superficial NEUROLOGIC: Cranial nerves I through XII grossly intact. No focal or lateralizing signs. PSYCH: Appropriate affect. Alert and oriented to person, place and time. CLINCAL LABS: WBC with persistent leukocytosis between 13-14+ ASSESSMENT: 1. Status post colectomy due to colon obstruction from diverticulitis 2. Moderate protein malnutrition due to inadequate protein intake 3. Diabetes type 2, poorly controlled PLAN: 1. Encourage oral intake 2. Stable from a surgical standpoint for discharge when medically stable Objective - Vital Signs Vital signs: Vital Signs Temp 97.8 F 02/21/19 04:00 Pulse 70 02/21/19 09:59 Resp 20 02/21/19 07:00 BP 100/51 02/21/19 07:00 Pulse Ox 93 L 02/21/19 07:00 Intake & Output 02/20/19 02/21/19 02/21/19 18:59 06:59 18:59 Intake Total 2765 755 5 Output Total 1390 1010 Balance 1375 -255 5 Weight 73 kg 72.4 kg Intake: IV 1010 160 5 0.9 Normal saline 60 60 5 Mvi, Adult No.4 with Vit 750 K 10 ml Trace (Conc-1Ml/ Dose) 1 ml Sodium Acetate 30 meq Calcium Gluconate 1 gm Potassium Phosphate 15 mmol In Amino Acid 4. 25%-D10w 1,000 ml @ 75 mls/hr IV .BY DURATION [facility] Rx#:[id number] Piperacillin-Tazobactam 3 200 100 .375 gm In Sodium Chloride 0.9% 100 ml @ 25 mls/hr IVPB Q12HR [facility] Rx #:[id number] Intake, IV Titration 955 95 Amount Fat Emulsion 20% 250 ml @ 130 20 20.833 mls/hr IV MoWeFr@ 1300 [facility] Rx#:[id number] Mvi, Adult No.4 with Vit 825 75 K 10 ml Trace (Conc-1Ml/ Dose) 1 ml Sodium Acetate 30 meq Calcium Gluconate 1 gm Potassium Phosphate 5 mmol Potassium Chloride 10 meq In Amino Acid 4.25%-D10w 1,000 ml @ 75 mls/hr IV .BY DURATION [facility] Rx#: [id number] Oral 800 500 Output: Urine 1390 910 Stool 100 Other: Voiding Method Indwelling Catheter Indwelling Catheter - Labs CBC & Chem 7: 02/21/19 05:11 02/21/19 05:11 Labs: Abnormal Lab Results - Last 24 Hours (Table) 02/20/19 02/20/19 02/20/19 Range/Units 11:59 17:10 20:46 WBC (3.8-10.6) k/uL RBC (3.80-5.40) m/uL Hgb (11.4-16.0) gm/dL Hct (34.0-46.0) % Plt Count (150-450) k/uL Neutrophils # (1.3-7.7) k/uL Lymphocytes # (1.0-4.8) k/uL Sodium (137-145) mmol/L BUN (7-17) mg/dL Creatinine (0.52-1.04) mg/dL Glucose (74-99) mg/dL POC Glucose (mg/dL) 199 H 145 H 206 H (75-99) mg/dL 02/21/19 02/21/19 02/21/19 Range/Units 05:11 05:11 06:56 WBC 14.3 H (3.8-10.6) k/uL RBC 2.81 L (3.80-5.40) m/uL Hgb 8.4 L (11.4-16.0) gm/dL Hct 26.3 L (34.0-46.0) % Plt Count 515 H (150-450) k/uL Neutrophils # 11.7 H (1.3-7.7) k/uL Lymphocytes # 0.9 L (1.0-4.8) k/uL Sodium 131 L (137-145) mmol/L BUN 52 H (7-17) mg/dL Creatinine 1.77 H (0.52-1.04) mg/dL Glucose 150 H (74-99) mg/dL POC Glucose (mg/dL) 170 H (75-99) mg/dL Assessment and Plan (1) Diverticulitis with obstruction Current Visit: Yes Status: Acute Code(s): K57.92 - DVTRCLI OF INTEST, PART UNSP, W/O PERF OR ABSCESS W/O BLEED SNOMED Code(s): 432485745 (2) Atrial fibrillation with RVR Current Visit: Yes Status: Acute Code(s): I48.91 - UNSPECIFIED ATRIAL FIBRILLATION SNOMED Code(s): 849473646366560 (3) Stage 3 chronic renal impairment associated with type 2 diabetes mellitus Current Visit: Yes Status: Acute Code(s): E11.22 - TYPE 2 DIABETES MELLITUS W DIABETIC CHRONIC KIDNEY DISEASE; N18.3 - CHRONIC KIDNEY DISEASE, STAGE 3 (MODERATE) SNOMED Code(s): 492647682416 (4) Diabetes type 2, uncontrolled Current Visit: Yes Status: Acute Code(s): E11.65 - TYPE 2 DIABETES MELLITUS WITH HYPERGLYCEMIA SNOMED Code(s): 283902729 (5) Leukocytosis Current Visit: Yes Status: Acute Code(s): D72.829 - ELEVATED WHITE BLOOD CELL COUNT, UNSPECIFIED SNOMED Code(s): 584147238 (6) Colostomy status Current Visit: Yes Status: Acute Code(s): Z93.3 - COLOSTOMY STATUS SNOMED Code(s): 329003658
[2019-02-21] MEDS: HYDROcodone/APAP 5-325MG 1 EACH TAB PO PRN (14:59)
[2019-02-21 16:56] LABS: Glucose,Whole Blood 172 mg/dL (75-99)
[2019-02-21 21:21] LABS: Glucose,Whole Blood 154 mg/dL (75-99)
[2019-02-22] MEDS: DILTIAZEM ORAL 60 MG TAB PO SCH ×4 (00:21→22:08)
[2019-02-22] MEDS: DULoxetine HCL 60 MG CAPSULE.DR PO SCH ×2 (00:21→22:09)
[2019-02-22] MEDS: APIXABAN 2.5 MG TABLET PO SCH ×3 (00:21→22:09)
[2019-02-22] MEDS: ATORVASTATIN 10 MG TAB PO SCH ×2 (00:21→22:08)
[2019-02-22] MEDS: INSULIN ASPART (NovoLOG) 100 UNIT/ML VIAL SQ SCH ×5 (00:21→22:09)
[2019-02-22] MEDS: METOPROLOL TARTRATE 50 MG TAB PO SCH ×4 (00:21→22:09)
[2019-02-22] MEDS: PIPERACILLIN-TAZOBACTAM 3.375 GM in SODIUM CHLORIDE 0.9% 100 ML IVPB SCH ×3 (00:22→16:20)
[2019-02-22] MEDS: MORPHINE SULFATE 4 MG/ML SYRINGE IVP PRN ×2 (03:54→22:12)
[2019-02-22] MEDS: METOCLOPRAMIDE 5 MG/ML 2 ML VIAL IVP PRN (03:54)
[2019-02-22 05:06] LABS: Basophils % (A) 0 %; Eosinophils # (A) 0.5 k/uL (0-0.7); Eosinophils % (A) 3 %; HCT 26.4 % (34.0-46.0); HGB 8.5 gm/dL (11.4-16.0); Lymphocytes # (A) 0.9 k/uL (1.0-4.8); Lymphocytes % (A) 6 %; MCH 29.8 pg (25.0-35.0); MCHC 32.3 g/dL (31.0-37.0); MCV 92.3 fL (80.0-100.0); Mean Platelet Volume 8.3; Monocytes # (A) 0.9 k/uL (0-1.0); Monocytes % (A) 6 %; Neutrophils % (A) 80 %; Platelet Count 585 k/uL (150-450); RBC 2.86 m/uL (3.80-5.40); RDW 14.4 % (11.5-15.5); WBC 14.9 k/uL (3.8-10.6)
[2019-02-22 05:16] LABS: Calcium 8.6 mg/dL (8.4-10.2); Magnesium 2.3 mg/dL (1.6-2.3); Phosphorus 4.4 mg/dL (2.5-4.5)
[2019-02-22] MEDS: 1: MVI, ADULT NO.4 WITH VIT K 10 ML, TRACE (CONC-1ML/DOSE) 1 ML, SODIUM ACETATE 30 MEQ, IV SCH ×15 (06:40→22:09)
[2019-02-22 07:02] LABS: Glucose,Whole Blood 136 mg/dL (75-99)
[2019-02-22] MEDS: IPRATROPIUM-ALBUTEROL 3 ML NEB INHALATION SCH ×4 (07:09→19:37)
[2019-02-22] MEDS: BUDESONIDE 0.5 MG/2 ML NEBU INHALATION SCH ×2 (07:09→19:37)
--- NOTE | 2019-02-22 09:21 | P.PN ---
Subjective Patient is seen in follow-up for acute kidney injury on chronic kidney disease. Renal function is a little worse today. She is nonoliguric. Underwent exploratory laparotomy with sigmoid colectomy and end colostomy this admission. Oral intake is fair. She is maintained on TPN which is running at 75 mL an hour. Vital signs are stable. General: The patient appeared well nourished and normally developed. HEENT: Head exam is unremarkable. Neck is without jugular venous distension. LUNGS: Lungs are clear to auscultation and percussion. Breath sounds decreased. HEART: Rate and Rhythm are regular. First and second heart sounds normal. No m urmurs, rubs or gallops. ABDOMEN: Bowel sounds present. Soft. EXTREMITITES: No clubbing, cyanosis, or edema. Objective - Vital Signs Vital signs: Vital Signs Temp 98.4 F 02/22/19 04:00 Pulse 68 02/22/19 07:27 Resp 15 02/22/19 07:00 BP 106/57 02/22/19 07:00 Pulse Ox 93 L 02/22/19 07:00 Intake & Output 02/21/19 02/22/19 02/22/19 18:59 06:59 18:59 Intake Total 690 90 Output Total 580 550 Balance 110 -460 Weight 75.5 kg Intake: IV 130 90 0.9 Normal saline 30 90 Piperacillin-Tazobactam 3 100 .375 gm In Sodium Chloride 0.9% 100 ml @ 25 mls/hr IVPB Q12HR [facility] Rx #:[id number] Oral 560 Output: Urine 580 350 Stool 200 Other: Voiding Method Indwelling Catheter Indwelling Catheter # Voids 1 - Labs CBC & Chem 7: 02/22/19 04:45 02/22/19 04:45 Labs: Abnormal Lab Results - Last 24 Hours (Table) 02/21/19 02/21/19 02/21/19 Range/Units 11:46 16:54 21:20 WBC (3.8-10.6) k/uL RBC (3.80-5.40) m/uL Hgb (11.4-16.0) gm/dL Hct (34.0-46.0) % Plt Count (150-450) k/uL Neutrophils # (1.3-7.7) k/uL Lymphocytes # (1.0-4.8) k/uL Sodium (137-145) mmol/L BUN (7-17) mg/dL Creatinine (0.52-1.04) mg/dL Glucose (74-99) mg/dL POC Glucose (mg/dL) 126 H 172 H 154 H (75-99) mg/dL 02/22/19 02/22/19 02/22/19 Range/Units 04:45 04:45 07:01 WBC 14.9 H (3.8-10.6) k/uL RBC 2.86 L (3.80-5.40) m/uL Hgb 8.5 L (11.4-16.0) gm/dL Hct 26.4 L (34.0-46.0) % Plt Count 585 H (150-450) k/uL Neutrophils # 12.0 H (1.3-7.7) k/uL Lymphocytes # 0.9 L (1.0-4.8) k/uL Sodium 132 L (137-145) mmol/L BUN 53 H (7-17) mg/dL Creatinine 1.99 H (0.52-1.04) mg/dL Glucose 109 H (74-99) mg/dL POC Glucose (mg/dL) 136 H (75-99) mg/dL Assessment and Plan Plan: Assessment: 1. Acute kidney injury mostly prerenal improved with IV hydration. Renal function slightly worse today which is due to hypotension. Creatinine 1.99 today. 2. Chronic kidney disease stage IV with baseline creatinine near 1.7-1.9 secondary to nephrosclerosis and left renal atrophy. 3. S/p exp lap with sigmoid colectomy and end colostomy 02/12/19. Maintained on TPN. 4. Neurogenic bladder. Patient performs self catheterizations 4-5 times daily. Now has Murphy. 5. Metabolic alkalosis secondary to hydration ion losses from NG output. Resolved. 6. Hypertension with chronic kidney disease. Blood pressure on the lower side. 7. UTI with urine culture positive for Klebsiella and E. coli maintained on antibiotics. 8. Hyponatremia secondary to poor solute intake. 9. A-fib maintained on Lopressor and Cardizem. Also on anticoagulation. Plan: Encouraged oral intake. 1.5 L free water restriction. Avoid nephrotoxins. Continue to monitor renal function and urine output. Discontinue clonidine patch. Start clonidine 0.1 mg 3 times daily. Hold for systolic blood pressure less than 120.
--- NOTE | 2019-02-22 11:28 | P.PN ---
Subjective Progress Note Date: 02/22/19 (Still abdominal distention, tympanitic) Principal diagnosis: mechanical obstruction with small bowel and distended abdomen with history of adhesions in the past. The progress note dictated on 02/08/2090 by Patient with history notable bowel movement or stool or passing flatus for more than one week duration x-ray indicating small bowel mechanical obstruction. And patient currently nothing by mouth with NG tube which she did some relief. Her vital sign temperature 90.8 orally F Fahrenheit and her pulse rate 80 and she developed on the surgical floor atrial fibrillation with a rate of 1:30 P 8/m patient transferred to machine rope maker floor with cardiology consultation which she was started on cardiac exam drip. And seen by Dr. ISATU Zamudio. Respiratory rate 16 and her blood pressure is hypertensive in spite of trial of medication 187/84. She is on nasal cannula 2 L of oxygen with a pulse ox 95%. current laboratories indicating that her WBC 5.3 with a hemoglobin 11.6, her platelet count 414.next is her PTT 32.6with the normal range 30.6. Minimally elevated. Chemistry indicating sodium 144 potassium 3.8 chloride 108 carbon dioxid 28, anion gap 8, BUN 20, creatinine 1.94, EGFR 23 with chronic kidney disease stage IV. Glucose 131AST and LT normal alk phos 137 total protein 6.1 and albumin 3.4 thyroid function is normal and the free T3 some little bit lower than normal that is because of her illness Nephrology evaluation and assessment indicating patient with the UTI Klebsiella pneumonia and E. coli treated according to the culture with the assessment acute kidney injury possibly prerenal improved with hydration. Chronic kidney disease stage IV with the creatinine near 2 secondary to hydronephrosis and left renal atrophy. #3 abdominal pain with questionable diverticulitis and chronic obstruction and NG tube for decompression. Neurogenic bladder and uses a catheterization 4-5 a day metabolic acidosis and she is on bicarb hypertension is controlled and UTI. Physical exam patient status post barium enema and patient the result reviewed by Dr. Sahu and his impression will be discussed with the family. HEENT was negative neck was supple and chest was clear and the heart was currently controlled atrophic And abdomen is tender distended and with the small bowel obstruction extremities no edema. Assessment small bowel obstruction mechanical and high fall to the patient should have surgical intervention. However this is a surgical case and up to the family and the surgeon. Dictation progress note date of service 02/22/[address] Engel. Patient seen and evaluated today 02/22/2019. She denied pain at this time with the use of Duragesic patch, however still distended and minimal intake orally. Her vital sign her temperature today 90 8.4F oral, heart rate 75 sinus and and 68 bpm respiratory rate 15/m and mean saturation 93% and she is on high rate 10 L/m. She was sleeping able to be awake easily her HEENT was negative. Neck was supple. Chest was elevated bilaterally with decrease air entry in the lower basis with the right diaphragmatic elevation. And underlying atelectasis. Laboratory: WBC 14.9 hemoglobin 8.5 and hematocrit 26.4 platelet count is 585. Chemistry: Sodium 132, potassium 5 chloride 101, carbon dioxide 24 and 9 gap 7 BUN 53, creatinine 1.99, EGFR 23 and blood sugar 109, POC glucose stable and the last one 136 which continued with insulin to scale only phosphorus 4.4, calcium 8.6, magnesium 2.3. She is conscious alert wake her up from sleep, no specific complaint except abd ominal distention but no pain. Neck was supple, HEENT was negative no changes. Chest is elevated up her lung reeder with decreased air entry in the lower lung field with the underlying elevated right hemidiaphragm diaphragm apparently chronic. Heart currently regular sinus with the episode of paroxysmal atrial fibrillation and she is on eliquis anticoagulant. As well as atherothrombotic inflatable of the lower extremities. Abdomen positive bowel sounds however distended with the gas however does not pass through the bag. Colostomy bag, there is still stool in the bag. Extremities: No edema positive pulses. Assessment and plan: Continue to be improving, however the intake is low and the distention of the abdomen still persistent was tympanitic on percussion, pain is controlled well at this time and she is comfortable. Still followed by the surgeon Dr. Sahu and pulmonary and nephrology and cardiology. Patient in ICU at this time. Objective - Vital Signs Vital signs: Vital Signs Temp 98.4 F 02/22/19 04:00 Pulse 68 02/22/19 07:27 Resp 15 02/22/19 08:00 BP 106/57 02/22/19 07:00 Pulse Ox 93 L 02/22/19 07:00 Intake & Output 02/21/19 02/22/19 02/22/19 18:59 06:59 18:59 Intake Total 690 90 620 Output Total 580 550 400 Balance 110 -460 220 Weight 75.5 kg Intake: IV 130 90 400 0.9 Normal saline 30 90 Mvi, Adult No.4 with Vit 300 K 10 ml Trace (Conc-1Ml/ Dose) 1 ml Sodium Acetate 30 meq Calcium Gluconate 1 gm Potassium Phosphate 5 mmol Potassium Chloride 10 meq In Amino Acid 4.25%-D10w 1,000 ml @ 75 mls/hr IV .BY DURATION [facility] Rx#: [id number] Piperacillin-Tazobactam 3 100 .375 gm In Sodium Chloride 0.9% 100 ml @ 25 mls/hr IVPB Q12HR [facility] Rx #:[id number] Sodium Acetate 30 meq 100 Calcium Gluconate 1 gm Potassium Phosphate 5 mmol Potassium Chloride 10 meq Magnesium Sulfate gm 0.5 gm In Amino Acid 4 .25%-D10w 1,000 ml @ 75 mls/hr IV .BY DURATION [facility] Rx#:[id number] Oral 560 220 Output: Urine 580 350 400 Stool 200 Other: Voiding Method Indwelling Catheter Indwelling Catheter Indwelling Catheter # Voids 1 - Labs CBC & Chem 7: 02/22/19 04:45 02/22/19 04:45 Labs: Abnormal Lab Results - Last 24 Hours (Table) 02/21/19 02/21/19 02/21/19 Range/Units 11:46 16:54 21:20 WBC (3.8-10.6) k/uL RBC (3.80-5.40) m/uL Hgb (11.4-16.0) gm/dL Hct (34.0-46.0) % Plt Count (150-450) k/uL Neutrophils # (1.3-7.7) k/uL Lymphocytes # (1.0-4.8) k/uL Sodium (137-145) mmol/L BUN (7-17) mg/dL Creatinine (0.52-1.04) mg/dL Glucose (74-99) mg/dL POC Glucose (mg/dL) 126 H 172 H 154 H (75-99) mg/dL 02/22/19 02/22/19 02/22/19 Range/Units 04:45 04:45 07:01 WBC 14.9 H (3.8-10.6) k/uL RBC 2.86 L (3.80-5.40) m/uL Hgb 8.5 L (11.4-16.0) gm/dL Hct 26.4 L (34.0-46.0) % Plt Count 585 H (150-450) k/uL Neutrophils # 12.0 H (1.3-7.7) k/uL Lymphocytes # 0.9 L (1.0-4.8) k/uL Sodium 132 L (137-145) mmol/L BUN 53 H (7-17) mg/dL Creatinine 1.99 H (0.52-1.04) mg/dL Glucose 109 H (74-99) mg/dL POC Glucose (mg/dL) 136 H (75-99) mg/dL
[2019-02-22 12:05] LABS: Glucose,Whole Blood 171 mg/dL (75-99)
--- NOTE | 2019-02-22 12:11 | P.PN ---
Subjective Progress Note Date: 02/22/19 Principal diagnosis: Acute bowel obstruction status post laparotomy extensive was of adhesions and sigmoid colectomy and end colostomy postoperative day #10 This is a pleasant 83-year-old female patient admitted back on 02/07/2019 with complaints of constipation and abdominal discomfort. She had not moved her bowels for several days prior. Abdominal x-rays did show evidence of constipation. Fleet enema and MiraLAX at home were unsuccessful. She was subsequently admitted for abdominal bloating and discomfort. She was found to have a colon obstruction and yesterday had undergone exposure laparotomy, extensive lysis of adhesions, sigmoid colectomy, end colostomy done by Dr. Miller. She remained hypoxic postoperatively and was placed on BiPAP with an FiO2 of 80%. We're consulted for the same. No chest x-ray was done. She is seen today on the selective care unit. She is currently awake and alert in no acute distress. She is having some ongoing abdominal discomfort. She has a midline incision with maggy intact and a colostomy with stool present. She is currently on 6 L high flow nasal cannula and maintaining O2 saturation in the mid 90s. She denies any worsening shortness of breath, cough or congestion. Urine culture was positive for Klebsiella pneumoniae and E coli. Blood cultures had revealed no growth. White count 12.8. Hemoglobin 11.6. Sodium 148. Potassium 3.9. Creatinine 2.20. She has D5.45 running at 100 ML's per hour. She is currently on ceftriaxone and Flagyl. PPN and lipids have been ordered. The patient was having issues with atrial fibrillation preoperatively and was initially on a heparin drip. The plan from cardiology is to initiate Eliquis once cleared surgically. On today's evaluation of 02/14/2019 I was asked even with this patient and the patient was found to be more lethargic and short of breath. I the patient did she is relatively comfortable on oxygen at 4 L. Nevertheless, she states that she wants to and she is unable to take this ongoing treatment any further. In terms of her cardiac condition, she is in atrial fibrillation with rapid ventricular response and a current heart rate is around 120-140. She has a Murphy catheter urine output is in order of 30 mL an hour. She had a chest x-ray that showed increased opacification of the lung bases. Ultrasound of the chest was done that showed small pockets and based on the ultrasound these markers were not and minimal 4 thoracentesis. She is on Diprivan running at the rate of 75 mL an hour. She is also on IV fluids running at 75 mL an hour of normal saline. The patient has a positive fluid balance of 1.1 L. She has a creatinine of 2.4 with a mean of 34. ABCDs not done this morning. She has a positive output and her colostomy bag. The surgical wound site is dry clean and intact. She is afebrile for now. on 02/16/2016, the patient is transferred to the intensive care unit. The patient's oxygen requirements went up yesterday and she is currently on15 L of oxygen by nasal cannula. I opted to bring her down to the ICU. The ultrasound of the chest was not conclusive in terms of fluid and based on that I ordered a CAT scan of the chest that was done without contrast and the CAT scan showed worsening atelectatic changes in lung bases, pneumonia cannot be completely excluded. The pleural effusions were very tiny and there were not and the blood for thoracentesis. Based on that, no intervention was done. Currently she is awake and alert. She is on a combination of IV Rocephin and Flagyl.er white cell count came up to 18. Her creatinine is up to 2.1. Creatinine is stable for now. The lactic acid level was low at 1. She is awake. She is alert. The colostomy is functioning and she has adequate output at this point in time.The patient still on TPN and were going to initiate someclear liquid diet today. Reevaluated today on 02/16/2019, patient remains in the ICU, O2 saturation is marginal, still requiring a high flow nasal cannula at 15 L/m, chest x-ray shows significant airspace disease and atelectasis with consolidation at the bases bilaterally right more so than left, hence I recommended that we use intermittently BiPAP with IPAP of 12 and EPAP of 4. Continues to have leukocytosis with WBC count of 14.5, hemoglobin is 10.1 lites are normal BUN is 41 creatinine 2.01. Close to her baseline since admission. Chest x-ray is quite concerning to me, and CT of the chest was also reviewed, patient has significant bibasilar consolidation and air bronchograms noted in both lungs bilaterally more so in the right lower lobe. On 02/17/2019 patient seen in follow-up in the intensive care unit, she is off BiPAP support currently, she is on 15 L, and her pulse ox is 92-94%, either tachycardic on a monitor, hemodynamically patient is stable, she states she feels short of breath, she has a congested cough, at times she is able to produce small amount of yellowish sputum, lung sounds are positive for rhonchi, and some wheezing, urine culture was positive for Klebsiella pneumonia and E. coli, blood culture has shown no growth, patient's antibiotics have been simplified and currently patient is on Zosyn. White count is trending down, it is 13.8 on today's labs, hemoglobin is 10.2, sodium was 135, dorsiflexors were unremarkable, B1 is 41 creatinine is 1.94, profile is slightly improved, in centive spirometry effort is poor, and patient is only able to achieve 500 on the incentive spirometer today. Patient continues to be nothing by mouth, she continues on TPN, she was started on promotility agent, in the form of Reglan. Was no output from her ostomy overnight. Surgery is following. Reevaluated today on 02/18/2019, patient is still in the intensive care unit, remains on a high flow nasal cannula, she used BiPAP last night, O2 saturation remains marginal in the low 90s. Patient is hemodynamically stable, she feels fine, she seems to have a better cough today compared to the last couple of days, chest x-ray is showing slightly better aeration of the bases of her lungs, nonetheless she continues to have atelectasis/infiltrates mostly in the right lower lobe, and she has a chronically elevated right hemidiaphragm. WBC count is 12.6, left lites are normal renal profile is improving BUN is 42 creatinine is down to 1.78 compared to 1.94 yesterday and 2.19 few days ago. Her pro calcitonin level was elevated, hence the patient was kept on antibiotics for presumptive right lower lobe pneumonia. Presently on Zosyn. Reevaluated today on 02/19/2019, remains in the intensive care unit, remains on high flow nasal cannula at 15 L/m, intermittently on BiPAP at night. Patient is feeling better, however her O2 saturation remains fairly marginal in the low 90s. She is hemodynamically stable, patient had intermittent episodes of atrial fibrillation with RVR, being addressed by cardiology on the case. Chest x-ray continues to show improvement in her atelectasis and bibasilar effusions, there is definitely better aeration to the bases of her lungs, continues to have right hemidiaphragm elevation. Urine culture came back positive for Klebsiella pneumoniae and E. coli. And this has been treated. Remains on Zosyn. Patient denies any chest pain, no shortness of breath, no cough, no wheezing, she is now on metoprolol 50 mg 3 times a day and Cardizem orally was added 60 mg 3 times a day. Reevaluated today on 02/20/2019, remains in the ICU on a high flow nasal ca nnula, pulmonary status remains marginal at best. She is now on high flow at 10 L/m, continues to have intermittent episodes of A. fib with RVR, but this morning her rate seems to be better controlled. Patient is hemodynamically stable, not requiring any pressors. Labs showed WBC count of 13.8 hemoglobin is 9.6. Electrolytes are normal BUN is 49 creatinine is 1.72 improving over the last few days. It was 1.8 to yesterday. Her diet is being advanced as tolerated. Chest x-ray continues to show right lower lobe atelectasis, possible right lower lobe pneumonia. Patient remains on antibiotics in the form of Zosyn. Reevaluated today on 02/21/2019, remains in the ICU, steadily improving, feeling much better today, and I was able to cut down her O2 flow to 6 L/m. Patient is in sinus rhythm, asymptomatic, no cough no wheezing no shortness of breath, feels fairly much better compared to the last few days. WBC count is 14.3 hemoglobin is 8.4 electrolytes are normal BUN is 52 creatinine is 1.77, no chest x-ray was done today Reevaluated today on 02/22/2019, patient is presently an overflow in the ICU. Waiting for a floor bed to become available. Patient is feeling better, breathi ng easier, denies any specific complaints, remains on anywhere between 6-10 L high flow nasal cannula, denies any nausea vomiting abdominal pain melena or hematemesis. Her WBC count is 14.9 hemoglobin is 8.5F lites are normal BUN is 53 creatinine is 1.99, basically the same over the last 1 week slightly improved compared to a week ago. Objective - Vital Signs Vital signs: Vital Signs Temp 98.4 F 02/22/19 04:00 Pulse 76 02/22/19 11:47 Resp 15 02/22/19 08:00 BP 106/57 02/22/19 07:00 Pulse Ox 93 L 02/22/19 07:00 Intake & Output 02/21/19 02/22/19 02/22/19 18:59 06:59 18:59 Intake Total 690 90 620 Output Total 580 550 400 Balance 110 -460 220 Weight 75.5 kg Intake: IV 130 90 400 0.9 Normal saline 30 90 Mvi, Adult No.4 with Vit 300 K 10 ml Trace (Conc-1Ml/ Dose) 1 ml Sodium Acetate 30 meq Calcium Gluconate 1 gm Potassium Phosphate 5 mmol Potassium Chloride 10 meq In Amino Acid 4.25%-D10w 1,000 ml @ 75 mls/hr IV .BY DURATION [facility] Rx#: [id number] Piperacillin-Tazobactam 3 100 .375 gm In Sodium Chloride 0.9% 100 ml @ 25 mls/hr IVPB Q12HR [facility] Rx #:[id number] Sodium Acetate 30 meq 100 Calcium Gluconate 1 gm Potassium Phosphate 5 mmol Potassium Chloride 10 meq Magnesium Sulfate gm 0.5 gm In Amino Acid 4 .25%-D10w 1,000 ml @ 75 mls/hr IV .BY DURATION [facility] Rx#:[id number] Oral 560 220 Output: Urine 580 350 400 Stool 200 Other: Voiding Method Indwelling Catheter Indwelling Catheter Indwelling Catheter # Voids 1 - Exam GENERAL EXAM: Revealed 83-year-old female, in no distress, on 10 L high flow nasal cannula Head: Atraumatic normocephalic. EENT: PERRLA, EOMI, neck disc, dry mucous membranes, throat is clear. No neck masses no JVD no stridor. CHEST: No chest wall deformity. LUNGS: diminished breath sounds at the bases, no crackles nor rhonchi no wheezes CVS: S1 and S2 normal with no audible murmur, regular rhythm. ABDOMEN: Midline incision with maggy intact, colostomy functioning. SPINE: No scoliosis or deformity SKIN: No rashes CENTRAL NERVOUS SYSTEM: No focal deficits, tone is normal in all 4 extremities. EXTREMITIES: There is no peripheral edema. No clubbing, no cyanosis. Periphe ral pulses are intact. - Labs CBC & Chem 7: 02/22/19 04:45 02/22/19 04:45 Labs: Abnormal Lab Results - Last 24 Hours (Table) 02/21/19 02/21/19 02/22/19 Range/Units 16:54 21:20 04:45 WBC (3.8-10.6) k/uL RBC (3.80-5.40) m/uL Hgb (11.4-16.0) gm/dL Hct (34.0-46.0) % Plt Count (150-450) k/uL Neutrophils # (1.3-7.7) k/uL Lymphocytes # (1.0-4.8) k/uL Sodium 132 L (137-145) mmol/L BUN 53 H (7-17) mg/dL Creatinine 1.99 H (0.52-1.04) mg/dL Glucose 109 H (74-99) mg/dL POC Glucose (mg/dL) 172 H 154 H (75-99) mg/dL 02/22/19 02/22/19 02/22/19 Range/Units 04:45 07:01 12:03 WBC 14.9 H (3.8-10.6) k/uL RBC 2.86 L (3.80-5.40) m/uL Hgb 8.5 L (11.4-16.0) gm/dL Hct 26.4 L (34.0-46.0) % Plt Count 585 H (150-450) k/uL Neutrophils # 12.0 H (1.3-7.7) k/uL Lymphocytes # 0.9 L (1.0-4.8) k/uL Sodium (137-145) mmol/L BUN (7-17) mg/dL Creatinine (0.52-1.04) mg/dL Glucose (74-99) mg/dL POC Glucose (mg/dL) 136 H 171 H (75-99) mg/dL Assessment and Plan Assessment: Impression: acute bowel obstruction, status post exploratory laparotomy, extensive lysis of adhesions, sigmoid colectomy, and colostomy postoperative day #10 Acute hypoxic respiratory failure suspect aspiration pneumonia, and postoperative atelectasis. Acute urinary tract infection secondary to Klebsiella pneumoniae and E. coli. Chronic atrial fibrillation. Today, the patient is in sinus rhythm. Benign essential hypertension. History of hyperlipidemia. Acute on chronic renal failure, patient has chronic renal failure stage III. Improving Acute urinary tract infection secondary to Klebsiella pneumonia and E. coli. Recommendation: Continue antibiotics/Zosyn Continue GI and DVT prophylaxis Continue cardiac meds Regular diet. Continue aggressive pulmonary toileting. Incentive spirometry. . Titrate FiO2 down as tolerated. Transfer patient out of the ICU to a monitor bed, could be remote telemetry. We'll continue to follow Time with Patient: Less than 30
--- NOTE | 2019-02-22 15:31 | P.PN ---
Subjective Progress Note Date: 02/22/19 CHIEF COMPLAINT: Colon obstruction due to diverticulitis HISTORY OF PRESENT ILLNESS: The patient is a 83-year-old female status post laparotomy with sigmoid colectomy and end colostomy due to colon obstruction from diverticulitis. She is in intensive care unit. She has poor appetite. She feels full. She is on TPN. ROS: No reports of nausea and vomiting. No fevers or chills. No new chest pain. She wears dentures. PHYSICAL EXAM: VITAL SIGNS: Reviewed CONSTITUTIONAL: Well developed and in no acute distress. EYES: Conjuctivae without sclera icterus. Extraocular movements grossly intact. HEAD, EARS, NOSE, THROAT: Moist buccal mucosa. Head is atraumatic, normocephalic. Hears conversational speech. No nasal drainage. NECK: Supple RESPIRATORY: Non-labored respirations and equal bilateral excursions. CARDIOVASCULAR: Palpable 2+ radial pulses. ABDOMEN: Soft. Non-tender. Ostomy patent and pick MUSCULOSKELETAL: No gross deformity of the lower extremities noted. No clubbing. No cyanosis. SKIN: Good skin turgor. Well perfused. Multiple small lacerations along the left forearm superficial NEUROLOGIC: Cranial nerves I through XII grossly intact. No focal or lateralizing signs. PSYCH: Appropriate affect. Alert and oriented to person, place and time. CLINCAL LABS: WBC with persistent leukocytosis between 14,900 ASSESSMENT: 1. Status post colectomy due to colon obstruction from diverticulitis 2. Moderate protein malnutrition due to inadequate protein intake 3. Diabetes type 2, poorly controlled PLAN: 1. Recommend dysphagia diet 2. Clear from a surgical standpoint. 3. May have outside Objective - Vital Signs Vital signs: Vital Signs Temp 98.7 F 02/22/19 12:00 Pulse 75 02/22/19 12:00 Resp 23 02/22/19 12:00 BP 125/58 02/22/19 12:00 Pulse Ox 94 L 02/22/19 12:00 Intake & Output 02/21/19 02/22/19 02/22/19 18:59 06:59 18:59 Intake Total 802 38 5403 Output Total 580 550 900 Balance 110 -460 240 Weight 75.5 kg Intake: IV 130 90 700 0.9 Normal saline 30 90 Mvi, Adult No.4 with Vit 600 K 10 ml Trace (Conc-1Ml/ Dose) 1 ml Sodium Acetate 30 meq Calcium Gluconate 1 gm Potassium Phosphate 5 mmol Potassium Chloride 10 meq In Amino Acid 4.25%-D10w 1,000 ml @ 75 mls/hr IV .BY DURATION [facility] Rx#: [id number] Piperacillin-Tazobactam 3 100 .375 gm In Sodium Chloride 0.9% 100 ml @ 25 mls/hr IVPB Q12HR [facility] Rx #:[id number] Sodium Acetate 30 meq 100 Calcium Gluconate 1 gm Potassium Phosphate 5 mmol Potassium Chloride 10 meq Magnesium Sulfate gm 0.5 gm In Amino Acid 4 .25%-D10w 1,000 ml @ 75 mls/hr IV .BY DURATION [facility] Rx#:[id number] Oral 560 440 Output: Urine 580 350 800 Stool 200 100 Other: Voiding Method Indwelling Catheter Indwelling Catheter Indwelling Catheter # Voids 1 - Labs CBC & Chem 7: 02/22/19 04:45 02/22/19 04:45 Labs: Abnormal Lab Results - Last 24 Hours (Table) 02/21/19 02/21/19 02/22/19 Range/Units 16:54 21:20 04:45 WBC (3.8-10.6) k/uL RBC (3.80-5.40) m/uL Hgb (11.4-16.0) gm/dL Hct (34.0-46.0) % Plt Count (150-450) k/uL Neutrophils # (1.3-7.7) k/uL Lymphocytes # (1.0-4.8) k/uL Sodium 132 L (137-145) mmol/L BUN 53 H (7-17) mg/dL Creatinine 1.99 H (0.52-1.04) mg/dL Glucose 109 H (74-99) mg/dL POC Glucose (mg/dL) 172 H 154 H (75-99) mg/dL 02/22/19 02/22/19 02/22/19 Range/Units 04:45 07:01 12:03 WBC 14.9 H (3.8-10.6) k/uL RBC 2.86 L (3.80-5.40) m/uL Hgb 8.5 L (11.4-16.0) gm/dL Hct 26.4 L (34.0-46.0) % Plt Count 585 H (150-450) k/uL Neutrophils # 12.0 H (1.3-7.7) k/uL Lymphocytes # 0.9 L (1.0-4.8) k/uL Sodium (137-145) mmol/L BUN (7-17) mg/dL Creatinine (0.52-1.04) mg/dL Glucose (74-99) mg/dL POC Glucose (mg/dL) 136 H 171 H (75-99) mg/dL Assessment and Plan (1) Diverticulitis with obstruction Current Visit: Yes Status: Acute Code(s): K57.92 - DVTRCLI OF INTEST, PART UNSP, W/O PERF OR ABSCESS W/O BLEED SNOMED Code(s): 829249444 (2) Atrial fibrillation with RVR Current Visit: Yes Status: Acute Code(s): I48.91 - UNSPECIFIED ATRIAL FIBRILLATION SNOMED Code(s): 352095932291329 (3) Stage 3 chronic renal impairment associated with type 2 diabetes mellitus Current Visit: Yes Status: Acute Code(s): E11.22 - TYPE 2 DIABETES MELLITUS W DIABETIC CHRONIC KIDNEY DISEASE; N18.3 - CHRONIC KIDNEY DISEASE, STAGE 3 (MODERATE) SNOMED Code(s): 588119131374 (4) Diabetes type 2, uncontrolled Current Visit: Yes Status: Acute Code(s): E11.65 - TYPE 2 DIABETES MELLITUS WITH HYPERGLYCEMIA SNOMED Code(s): 252563516 (5) Leukocytosis Current Visit: Yes Status: Acute Code(s): D72.829 - ELEVATED WHITE BLOOD CELL COUNT, UNSPECIFIED SNOMED Code(s): 410298789 (6) Colostomy status Current Visit: Yes Status: Acute Code(s): Z93.3 - COLOSTOMY STATUS SNOMED Code(s): 603145493
[2019-02-22] MEDS: cloNIDine HCL 0.1 MG TAB PO SCH ×2 (16:20→22:08)
[2019-02-22 16:42] LABS: Glucose,Whole Blood 157 mg/dL (75-99)
[2019-02-22 20:42] LABS: Glucose,Whole Blood 117 mg/dL (75-99)
[2019-02-23] MEDS: PIPERACILLIN-TAZOBACTAM 3.375 GM in SODIUM CHLORIDE 0.9% 100 ML IVPB SCH ×3 (01:40→21:03)
[2019-02-23] MEDS: MORPHINE SULFATE 4 MG/ML SYRINGE IVP PRN ×4 (04:16→16:45)
[2019-02-23] MEDS: METOCLOPRAMIDE 5 MG/ML 2 ML VIAL IVP PRN ×2 (04:17→09:06)
[2019-02-23 05:31] LABS: Basophils # (A) 0.1 k/uL (0-0.2); Basophils % (A) 0 %; Eosinophils # (A) 0.3 k/uL (0-0.7); Eosinophils % (A) 2 %; HCT 26.5 % (34.0-46.0); HGB 8.7 gm/dL (11.4-16.0); Hypochromasia Slight; Lymphocytes # (A) 0.8 k/uL (1.0-4.8); Lymphocytes % (A) 5 %; MCH 30.5 pg (25.0-35.0); MCHC 32.7 g/dL (31.0-37.0); MCV 93.1 fL (80.0-100.0); Monocytes # (A) 0.9 k/uL (0-1.0); Monocytes % (A) 5 %; Neutrophils # (A) 13.5 k/uL (1.3-7.7); Neutrophils % (A) 83 %; Platelet Count 721 k/uL (150-450); RBC 2.85 m/uL (3.80-5.40); RDW 14.2 % (11.5-15.5); WBC 16.2 k/uL (3.8-10.6)
[2019-02-23 06:08] LABS: Albumin 2.7 g/dL (3.5-5.0); Calcium 9.1 mg/dL (8.4-10.2); Magnesium 2.4 mg/dL (1.6-2.3); Phosphorus 4.5 mg/dL (2.5-4.5); Total Bilirubin 0.9 mg/dL (0.2-1.3); Total Protein 5.8 g/dL (6.3-8.2)
[2019-02-23 06:51] LABS: Glucose,Whole Blood 181 mg/dL (75-99)
[2019-02-23 08:14] LABS: Glucose,Whole Blood 197 mg/dL (75-99)
[2019-02-23] MEDS: SODIUM CHLORIDE 0.9% 1,000 ML IV SCH (08:30)
--- NOTE | 2019-02-23 08:47 | P.PN ---
Subjective Patient is seen in follow-up for acute kidney injury on chronic kidney disease. Renal function is again worse today. She is nonoliguric. Underwent exploratory laparotomy with sigmoid colectomy and end colostomy this admission. Oral intake is fair. She is maintained on TPN which is running at 75 mL an hour. Vital signs are stable. General: The patient appeared well nourished and normally developed. HEENT: Head exam is unremarkable. Neck is without jugular venous distension. LUNGS: Lungs are clear to auscultation and percussion. Breath sounds decreased. HEART: Rate and Rhythm are regular. First and second heart sounds normal. No murmurs, rubs or gallops. ABDOMEN: Bowel sounds present. Soft. EXTREMITITES: No clubbing, cyanosis, or edema. Objective - Vital Signs Vital signs: Vital Signs Temp 98.6 F 02/23/19 04:00 Pulse 80 02/23/19 06:00 Resp 22 02/23/19 04:00 BP 153/72 02/23/19 06:00 Pulse Ox 97 02/23/19 06:00 Intake & Output 02/22/19 02/23/19 02/23/19 18:59 06:59 18:59 Intake Total 1620 915 Output Total 1300 1600 Balance 320 -685 Weight 76.1 kg Intake: IV 1100 915 0.9 Normal saline 15 Mvi, Adult No.4 with Vit 900 900 K 10 ml Trace (Conc-1Ml/ Dose) 1 ml Sodium Acetate 30 meq Calcium Gluconate 1 gm Potassium Phosphate 5 mmol Potassium Chloride 10 meq In Amino Acid 4.25%-D10w 1,000 ml @ 75 mls/hr IV .BY DURATION [facility] Rx#: [id number] Piperacillin-Tazobactam 3 100 .375 gm In Sodium Chloride 0.9% 100 ml @ 25 mls/hr IVPB Q8HR [facility] Rx# :[id number] Sodium Acetate 30 meq 100 Calcium Gluconate 1 gm Potassium Phosphate 5 mmol Potassium Chloride 10 meq Magnesium Sulfate gm 0.5 gm In Amino Acid 4 .25%-D10w 1,000 ml @ 75 mls/hr IV .BY DURATION [facility] Rx#:[id number] Oral 440 Tube Feeding 80 Output: Urine 1200 1500 Stool 100 100 Other: Voiding Method Indwelling Catheter Indwelling Catheter # Voids 1 - Labs CBC & Chem 7: 02/23/19 05:02 02/23/19 05:00 Labs: Abnormal Lab Results - Last 24 Hours (Table) 02/22/19 02/22/19 02/22/19 Range/Units 12:03 16:40 20:41 WBC (3.8-10.6) k/uL RBC (3.80-5.40) m/uL Hgb (11.4-16.0) gm/dL Hct (34.0-46.0) % Plt Count (150-450) k/uL Neutrophils # (1.3-7.7) k/uL Lymphocytes # (1.0-4.8) k/uL Sodium (137-145) mmol/L Carbon Dioxide (22-30) mmol/L BUN (7-17) mg/dL Creatinine (0.52-1.04) mg/dL Glucose (74-99) mg/dL POC Glucose (mg/dL) 171 H 157 H 117 H (75-99) mg/dL Magnesium (1.6-2.3) mg/dL AST (14-36) U/L ALT (4-34) U/L Alkaline Phosphatase (38-126) U/L Total Protein (6.3-8.2) g/dL Albumin (3.5-5.0) g/dL 02/23/19 02/23/19 02/23/19 Range/Units 05:00 05:02 06:49 WBC 16.2 H (3.8-10.6) k/uL RBC 2.85 L (3.80-5.40) m/uL Hgb 8.7 L (11.4-16.0) gm/dL Hct 26.5 L (34.0-46.0) % Plt Count 721 H (150-450) k/uL Neutrophils # 13.5 H (1.3-7.7) k/uL Lymphocytes # 0.8 L (1.0-4.8) k/uL Sodium 133 L (137-145) mmol/L Carbon Dioxide 21 L (22-30) mmol/L BUN 56 H (7-17) mg/dL Creatinine 2.17 H (0.52-1.04) mg/dL Glucose 155 H (74-99) mg/dL POC Glucose (mg/dL) 181 H (75-99) mg/dL Magnesium 2.4 H (1.6-2.3) mg/dL AST 50 H (14-36) U/L ALT 48 H (4-34) U/L Alkaline Phosphatase 344 H (38-126) U/L Total Protein 5.8 L (6.3-8.2) g/dL Albumin 2.7 L (3.5-5.0) g/dL 02/23/19 Range/Units 08:13 WBC (3.8-10.6) k/uL RBC (3.80-5.40) m/uL Hgb (11.4-16.0) gm/dL Hct (34.0-46.0) % Plt Count (150-450) k/uL Neutrophils # (1.3-7.7) k/uL Lymphocytes # (1.0-4.8) k/uL Sodium (137-145) mmol/L Carbon Dioxide (22-30) mmol/L BUN (7-17) mg/dL Creatinine (0.52-1.04) mg/dL Glucose (74-99) mg/dL POC Glucose (mg/dL) 197 H (75-99) mg/dL Magnesium (1.6-2.3) mg/dL AST (14-36) U/L ALT (4-34) U/L Alkaline Phosphatase (38-126) U/L Total Protein (6.3-8.2) g/dL Albumin (3.5-5.0) g/dL Assessment and Plan Plan: Assessment: 1. Acute kidney injury mostly prerenal improved with IV hydration. Renal function worse today which is due to hypotension, tachycardia. Creatinine 2.17 today. 2. Chronic kidney disease stage IV with baseline creatinine near 1.7-1.9 secon duke to nephrosclerosis and left renal atrophy. 3. S/p exp lap with sigmoid colectomy and end colostomy 02/12/19. Maintained on TPN. 4. Neurogenic bladder. Patient performs self catheterizations 4-5 times daily. Now has Murphy. 5. Metabolic acidosis secondary to acute kidney injury. 6. Hypertension with chronic kidney disease. Blood pressure on the lower side. 7. UTI with urine culture positive for Klebsiella and E. coli maintained on antibiotics. 8. Hyponatremia secondary to poor solute intake. Better. 9. A-fib maintained on Lopressor and Cardizem. Also on anticoagulation. Plan: Encouraged oral intake. 1.5 L free water restriction. Start normal saline at 50 mL an hour. Avoid nephrotoxins. Continue to monitor renal function and urine output. Discontinued clonidine patch - blood pressure better. Maintain clonidine 0.1 mg 3 times daily. Hold for systolic blood pressure less than 120.
[2019-02-23] MEDS: INSULIN ASPART (NovoLOG) 100 UNIT/ML VIAL SQ SCH ×4 (08:57→23:36)
[2019-02-23] MEDS: APIXABAN 2.5 MG TABLET PO SCH ×2 (08:59→21:11)
[2019-02-23] MEDS: cloNIDine HCL 0.1 MG TAB PO SCH ×3 (08:59→21:11)
[2019-02-23] MEDS: DILTIAZEM ORAL 60 MG TAB PO SCH ×2 (08:59→15:37)
[2019-02-23] MEDS: METOPROLOL TARTRATE 50 MG TAB PO SCH ×3 (08:59→21:11)
[2019-02-23] MEDS: HYDROcodone/APAP 5-325MG 1 EACH TAB PO PRN (09:10)
[2019-02-23] MEDS: IPRATROPIUM-ALBUTEROL 3 ML NEB INHALATION SCH ×4 (09:42→20:25)
[2019-02-23] MEDS: BUDESONIDE 0.5 MG/2 ML NEBU INHALATION SCH ×2 (09:42→20:25)
--- NOTE | 2019-02-23 10:02 | P.PN ---
<Siobhan Dugan A - Last Filed: 02/23/19 10:00> Subjective Progress Note Date: 02/23/19 CHIEF COMPLAINT: Abdominal pain HISTORY OF PRESENT ILLNESS: patient is status post exploratory laparotomy, extensive lysis of adhesions, sigmoid colectomy, and end colostomy. Patient examined at the bedside in the intensive care unit. patient is awake and alert. She denies abdominal pain. Patient is tolerating diet. Denies nausea or vomiting. Oral intake remains poor. Nursing reports patient is consuming two protein shakes a day, but no other oral intake. PHYSICAL EXAM: VITAL SIGNS: Reviewed GENERAL: Well-developed in no acute distress. HEENT: No sclera icterus. Extraocular movements grossly intact. Moist buccal mucosa. Head is atraumatic, normocephalic. Hears conversational speech. No nasal drainage. NECK: Supple without lymphadenopathy. CHEST: Non-labored respirations and equal bilateral excursions. CARDIOVASCULAR: Regular rate with regular rhythm. Palpable 2+ radial pulses. ABDOMEN: Soft. Nondistended. Dressing to abdomen clean dry intact. Ostomy with brown liquid stool noted. MUSCULOSKELETAL: No clubbing or cyanosis. NEUROLOGIC: No focal or lateralizing signs. Cranial nerves II through XII grossly intact. PSYCH: Appropriate affect. Alert and oriented to person, place and time. SKIN: Well perfused. Good skin turgor. ASSESSMENT: 1. Abdominal pain, status post exploratory laparotomy, extensive lysis of adhesions, sigmoid colectomy, and end colostomy PLAN: Continue daily dressing changes. Aquacel silver to open aspect of midline incision Continue diet as tolerated. Encouraged increased oral intake Monitor oral intake. Recommend discontinuing TPN as soon as possible. Nurse practitioner note has been reviewed by physician. Signing provider agrees with the documented findings, assessment, and plan of care. Objective - Vital Signs Vital signs: Vital Signs Temp 98.6 F 02/23/19 04:00 Pulse 113 H 02/23/19 09:52 Resp 22 02/23/19 04:00 BP 153/72 02/23/19 06:00 Pulse Ox 97 02/23/19 06:00 Intake & Output 02/22/19 02/23/19 02/23/19 18:59 06:59 18:59 Intake Total 1620 915 Output Total 1300 1600 Balance 320 -685 Weight 76.1 kg Intake: IV 1100 915 0.9 Normal saline 15 Mvi, Adult No.4 with Vit 900 900 K 10 ml Trace (Conc-1Ml/ Dose) 1 ml Sodium Acetate 30 meq Calcium Gluconate 1 gm Potassium Phosphate 5 mmol Potassium Chloride 10 meq In Amino Acid 4.25%-D10w 1,000 ml @ 75 mls/hr IV .BY DURATION [facility] Rx#: [id number] Piperacillin-Tazobactam 3 100 .375 gm In Sodium Chloride 0.9% 100 ml @ 25 mls/hr IVPB Q8HR [facility] Rx# :[id number] Sodium Acetate 30 meq 100 Calcium Gluconate 1 gm Potassium Phosphate 5 mmol Potassium Chloride 10 meq Magnesium Sulfate gm 0.5 gm In Amino Acid 4 .25%-D10w 1,000 ml @ 75 mls/hr IV .BY DURATION [facility] Rx#:[id number] Oral 440 Tube Feeding 80 Output: Urine 1200 1500 Stool 100 100 Other: Voiding Method Indwelling Catheter Indwelling Catheter # Voids 1 - Labs CBC & Chem 7: 02/23/19 05:02 02/23/19 05:00 Labs: Abnormal Lab Results - Last 24 Hours (Table) 02/22/19 02/22/19 02/22/19 Range/Units 12:03 16:40 20:41 WBC (3.8-10.6) k/uL RBC (3.80-5.40) m/uL Hgb (11.4-16.0) gm/dL Hct (34.0-46.0) % Plt Count (150-450) k/uL Neutrophils # (1.3-7.7) k/uL Lymphocytes # (1.0-4.8) k/uL Sodium (137-145) mmol/L Carbon Dioxide (22-30) mmol/L BUN (7-17) mg/dL Creatinine (0.52-1.04) mg/dL Glucose (74-99) mg/dL POC Glucose (mg/dL) 171 H 157 H 117 H (75-99) mg/dL Magnesium (1.6-2.3) mg/dL AST (14-36) U/L ALT (4-34) U/L Alkaline Phosphatase (38-126) U/L Total Protein (6.3-8.2) g/dL Albumin (3.5-5.0) g/dL 02/23/19 02/23/19 02/23/19 Range/Units 05:00 05:02 06:49 WBC 16.2 H (3.8-10.6) k/uL RBC 2.85 L (3.80-5.40) m/uL Hgb 8.7 L (11.4-16.0) gm/dL Hct 26.5 L (34.0-46.0) % Plt Count 721 H (150-450) k/uL Neutrophils # 13.5 H (1.3-7.7) k/uL Lymphocytes # 0.8 L (1.0-4.8) k/uL Sodium 133 L (137-145) mmol/L Carbon Dioxide 21 L (22-30) mmol/L BUN 56 H (7-17) mg/dL Creatinine 2.17 H (0.52-1.04) mg/dL Glucose 155 H (74-99) mg/dL POC Glucose (mg/dL) 181 H (75-99) mg/dL Magnesium 2.4 H (1.6-2.3) mg/dL AST 50 H (14-36) U/L ALT 48 H (4-34) U/L Alkaline Phosphatase 344 H (38-126) U/L Total Protein 5.8 L (6.3-8.2) g/dL Albumin 2.7 L (3.5-5.0) g/dL 02/23/19 Range/Units 08:13 WBC (3.8-10.6) k/uL RBC (3.80-5.40) m/uL Hgb (11.4-16.0) gm/dL Hct (34.0-46.0) % Plt Count (150-450) k/uL Neutrophils # (1.3-7.7) k/uL Lymphocytes # (1.0-4.8) k/uL Sodium (137-145) mmol/L Carbon Dioxide (22-30) mmol/L BUN (7-17) mg/dL Creatinine (0.52-1.04) mg/dL Glucose (74-99) mg/dL POC Glucose (mg/dL) 197 H (75-99) mg/dL Magnesium (1.6-2.3) mg/dL AST (14-36) U/L ALT (4-34) U/L Alkaline Phosphatase (38-126) U/L Total Protein (6.3-8.2) g/dL Albumin (3.5-5.0) g/dL <WilsonemmanuelSoham - Last Filed: 02/23/19 16:46> Subjective As above. Patient still having some issues with abdominal pain and bloating. Ostomy is functioning. No vomiting. Oral intake is still relatively poor. She is drinking approximately 1/2-2/3 of her protein shakes 3 times daily. On exam patient has mild distention, mild diffuse tenderness, both midline wounds clean. Agree with plans for CT abdomen and pelvis given the recurrent distention. Will have patient take a small volume oral contrast. This was discussed with the nursing staff and also CAT scan staff. Objective - Vital Signs Vital signs: Vital Signs Temp 98 F 02/23/19 16:00 Pulse 114 H 02/23/19 16:00 Resp 16 02/23/19 16:00 BP 112/75 02/23/19 16:00 Pulse Ox 94 L 02/23/19 16:00 Intake & Output 02/22/19 02/23/19 02/23/19 18:59 06:59 18:59 Intake Total 1620 915 Output Total 1300 1600 Balance 320 -685 Weight 76.1 kg 76.1 kg Intake: IV 1100 915 0.9 Normal saline 15 Mvi, Adult No.4 with Vit 900 900 K 10 ml Trace (Conc-1Ml/ Dose) 1 ml Sodium Acetate 30 meq Calcium Gluconate 1 gm Potassium Phosphate 5 mmol Potassium Chloride 10 meq In Amino Acid 4.25%-D10w 1,000 ml @ 75 mls/hr IV .BY DURATION [facility] Rx#: [id number] Piperacillin-Tazobactam 3 100 .375 gm In Sodium Chloride 0.9% 100 ml @ 25 mls/hr IVPB Q8HR [facility] Rx# :[id number] Sodium Acetate 30 meq 100 Calcium Gluconate 1 gm Potassium Phosphate 5 mmol Potassium Chloride 10 meq Magnesium Sulfate gm 0.5 gm In Amino Acid 4 .25%-D10w 1,000 ml @ 75 mls/hr IV .BY DURATION [facility] Rx#:[id number] Oral 440 Tube Feeding 80 Output: Urine 1200 1500 Stool 100 100 Other: Voiding Method Indwelling Catheter Indwelling Catheter # Voids 1 - Labs CBC & Chem 7: 02/23/19 05:02 02/23/19 05:00 Labs: Abnormal Lab Results - Last 24 Hours (Table) 02/22/19 02/23/19 02/23/19 Range/Units 20:41 05:00 05:02 WBC 16.2 H (3.8-10.6) k/uL RBC 2.85 L (3.80-5.40) m/uL Hgb 8.7 L (11.4-16.0) gm/dL Hct 26.5 L (34.0-46.0) % Plt Count 721 H (150-450) k/uL Neutrophils # 13.5 H (1.3-7.7) k/uL Lymphocytes # 0.8 L (1.0-4.8) k/uL Sodium 133 L (137-145) mmol/L Carbon Dioxide 21 L (22-30) mmol/L BUN 56 H (7-17) mg/dL Creatinine 2.17 H (0.52-1.04) mg/dL Glucose 155 H (74-99) mg/dL POC Glucose (mg/dL) 117 H (75-99) mg/dL Magnesium 2.4 H (1.6-2.3) mg/dL AST 50 H (14-36) U/L ALT 48 H (4-34) U/L Alkaline Phosphatase 344 H (38-126) U/L Total Protein 5.8 L (6.3-8.2) g/dL Albumin 2.7 L (3.5-5.0) g/dL 02/23/19 02/23/19 02/23/19 Range/Units 06:49 08:13 12:47 WBC (3.8-10.6) k/uL RBC (3.80-5.40) m/uL Hgb (11.4-16.0) gm/dL Hct (34.0-46.0) % Plt Count (150-450) k/uL Neutrophils # (1.3-7.7) k/uL Lymphocytes # (1.0-4.8) k/uL Sodium (137-145) mmol/L Carbon Dioxide (22-30) mmol/L BUN (7-17) mg/dL Creatinine (0.52-1.04) mg/dL Glucose (74-99) mg/dL POC Glucose (mg/dL) 181 H 197 H 179 H (75-99) mg/dL Magnesium (1.6-2.3) mg/dL AST (14-36) U/L ALT (4-34) U/L Alkaline Phosphatase (38-126) U/L Total Protein (6.3-8.2) g/dL Albumin (3.5-5.0) g/dL Assessment and Plan (1) Abdominal pain Current Visit: Yes Status: Acute Code(s): R10.9 - UNSPECIFIED ABDOMINAL PAIN SNOMED Code(s): 45630780
[2019-02-23] MEDS ORDERED: LIDOCAINE 1% INJ 10MG/ML (20 ML MDV) ONE (10:03)
--- NOTE | 2019-02-23 10:14 | XR ---
EXAMINATION TYPE: XR chest 1V portable DATE OF EXAM: 02/23/2019 COMPARISON: 02/20/2019 HISTORY: Increasing hypoxemia. Abdominal surgery on February 12. TECHNIQUE: Single frontal view of the chest is obtained. FINDINGS: Persistent right basilar opacity and retrocardiac opacity. Blunting of the costophrenic an gles. Overall low lung volumes. Unchanged right hemidiaphragm elevation. Enlarged cardiac mediastinal silhouette. Bulbous contour of the right paratracheal space relates to tortuous course of the brachi ocephalic artery on prior CT. Degenerative changes of the thoracic spine and glenohumeral joints are moderate. IMPRESSION: Patchy bibasilar opacities are similar to the prior and may represent atelectasis. Overa ll there are low lung volumes and persistent trace pleural effusions blunting the costophrenic angles . No pulmonary vascular congestion.
[2019-02-23] MEDS ORDERED: LIDOCAINE 1% INJ 10MG/ML (20 ML MDV) SQ ONE (10:40)
--- NOTE | 2019-02-23 10:49 | P.PN ---
Subjective Progress Note Date: 02/23/19 Principal diagnosis: Acute bowel obstruction status post laparotomy with extensive lysis of adhesions and sigmoid colectomy and end colostomy postoperative day 5 This is a pleasant 83-year-old female patient admitted back on 02/07/2019 with complaints of constipation and abdominal discomfort. She had not moved her bowels for several days prior. Abdominal x-rays did show evidence of constipation. Fleet enema and MiraLAX at home were unsuccessful. She was subsequently admitted for abdominal bloating and discomfort. She was found to have a colon obstruction and yesterday had undergone exposure laparotomy, extensive lysis of adhesions, sigmoid colectomy, end colostomy done by Dr. Miller. She remained hypoxic postoperatively and was placed on BiPAP with an FiO2 of 80%. We're consulted for the same. No chest x-ray was done. She is seen today on the selective care unit. She is currently awake and alert in no acute distress. She is having some ongoing abdominal discomfort. She has a midline incision with maggy intact and a colostomy with stool present. She is currently on 6 L high flow nasal cannula and maintaining O2 saturation in the mid 90s. She denies any worsening shortness of breath, cough or congestion. Urine culture was positive for Klebsiella pneumoniae and E coli. Blood cultures had revealed no growth. White count 12.8. Hemoglobin 11.6. Sodium 148. Potassium 3.9. Creatinine 2.20. She has D5.45 running at 100 ML's per hour. She is currently on ceftriaxone and Flagyl. PPN and lipids have been ordered. The patient was having issues with atrial fibrillation preoperatively and was initially on a heparin drip. The plan from cardiology is to initiate Eliquis once cleared surgically. On today's evaluation of 02/14/2019 I was asked even with this patient and the patient was found to be more lethargic and short of breath. I the patient did she is relatively comfortable on oxygen at 4 L. Nevertheless, she states that she wants to and she is unable to take this ongoing treatment any further. In terms of her cardiac condition, she is in atrial fibrillation with rapid ventricular response and a current heart rate is around 120-140. She has a Murphy catheter urine output is in order of 30 mL an hour. She had a chest x-ray that showed increased opacification of the lung bases. Ultrasound of the chest was done that showed small pockets and based on the ultrasound these markers were not and minimal 4 thoracentesis. She is on Diprivan running at the rate of 75 mL an hour. She is also on IV fluids running at 75 mL an hour of normal saline. The patient has a positive fluid balance of 1.1 L. She has a creatinin e of 2.4 with a mean of 34. ABCDs not done this morning. She has a positive output and her colostomy bag. The surgical wound site is dry clean and intact. She is afebrile for now. on 02/16/2016, the patient is transferred to the intensive care unit. The patient's oxygen requirements went up yesterday and she is currently on15 L of oxygen by nasal cannula. I opted to bring her down to the ICU. The ultrasound of the chest was not conclusive in terms of fluid and based on that I ordered a CAT scan of the chest that was done without contrast and the CAT scan showed worsening atelectatic changes in lung bases, pneumonia cannot be completely excluded. The pleural effusions were very tiny and there were not and the blood for thoracentesis. Based on that, no intervention was done. Currently she is awake and alert. She is on a combination of IV Rocephin and Flagyl.er white cell count came up to 18. Her creatinine is up to 2.1. Creatinine is stable for now. The lactic acid level was low at 1. She is awake. She is alert. The colostomy is functioning and she has adequate output at this point in time.The patient still on TPN and were going to initiate someclear liquid diet today. Reevaluated today on 02/16/2019, patient remains in the ICU, O2 saturation is marginal, still requiring a high flow nasal cannula at 15 L/m, chest x-ray shows significant airspace disease and atelectasis with consolidation at the bases bilaterally right more so than left, hence I recommended that we use intermittently BiPAP with IPAP of 12 and EPAP of 4. Continues to have leukocytosis with WBC count of 14.5, hemoglobin is 10.1 lites are normal BUN is 41 creatinine 2.01. Close to her baseline since admission. Chest x-ray is quite concerning to me, and CT of the chest was also reviewed, patient has significant bibasilar consolidation and air bronchograms noted in both lungs bilaterally more so in the right lower lobe. On 02/17/2019 patient seen in follow-up in the intensive care unit, she is off BiPAP support currently, she is on 15 L, and her pulse ox is 92-94%, either tachycardic on a monitor, hemodynamically patient is stable, she states she feels short of breath, she has a congested cough, at times she is able to produce small amount of yellowish sputum, lung sounds are positive for rhonchi, and some wheezing, urine culture was positive for Klebsiella pneumonia and E. c rema, blood culture has shown no growth, patient's antibiotics have been simplified and currently patient is on Zosyn. White count is trending down, it is 13.8 on today's labs, hemoglobin is 10.2, sodium was 135, dorsiflexors were unremarkable, B1 is 41 creatinine is 1.94, profile is slightly improved, incentive spirometry effort is poor, and patient is only able to achieve 500 on the incentive spirometer today. Patient continues to be nothing by mouth, she continues on TPN, she was started on promotility agent, in the form of Reglan. Was no output from her ostomy overnight. Surgery is following. On 02/23/2019 patient was seen in follow-up in the intensive care unit. This is postoperative day #11, status post exploratory laparotomy, and extensive lysis of adhesions, sigmoid colectomy and colostomy for acute bowel obstruction. She is awake and alert, does not appear to be in any acute distress, still requiring high flow oxygen, to 15 L currently, her pulse ox is 97%, we will try to wean it down, she's been afebrile, she is however in A. fib RVR with a rate of 120-140, currently on oral metoprolol for rate control, she is on Lopressor 50 mg 3 times daily, is on IV antibiotics, no form of Zosyn, urine culture showed Klebsiella pneumonia and E. coli, susceptible to Zosyn. Hemodynamically she is stable, there have been no fevers, his labs have been reviewed, showing white blood cell count of 16.2, hemoglobin of 8.7, platelet count of 721, sodium is 133, potassium is 5.0, CO2 is 21, BUN is 56, creatinine is 2.17. Today's chest x-ray has been reviewed during patchy bibasilar opacities , low lung volumes, persistent trace pleural effusions, and atelectasis. Mid abdominal incision clean dry and intact, maggy are intact, left abdomen colostomy is with liquid stool, bowel sounds are present. Patient remains on TPN for supplementation of nutrition, and patient is also on the chopped dysphagia 3 diet with 1500 mL fluid restriction. Objective - Vital Signs Vital signs: Vital Signs Temp 98.6 F 02/23/19 04:00 Pulse 113 H 02/23/19 09:52 Resp 22 02/23/19 04:00 BP 153/72 02/23/19 06:00 Pulse Ox 97 02/23/19 06:00 Intake & Output 02/22/19 02/23/19 02/23/19 18:59 06:59 18:59 Intake Total 1620 915 Output Total 1300 1600 Balance 320 -685 Weight 76.1 kg 76.1 kg Intake: IV 1100 915 0.9 Normal saline 15 Mvi, Adult No.4 with Vit 900 900 K 10 ml Trace (Conc-1Ml/ Dose) 1 ml Sodium Acetate 30 meq Calcium Gluconate 1 gm Potassium Phosphate 5 mmol Potassium Chloride 10 meq In Amino Acid 4.25%-D10w 1,000 ml @ 75 mls/hr IV .BY DURATION [facility] Rx#: [id number] Piperacillin-Tazobactam 3 100 .375 gm In Sodium Chloride 0.9% 100 ml @ 25 mls/hr IVPB Q8HR [facility] Rx# :[id number] Sodium Acetate 30 meq 100 Calcium Gluconate 1 gm Potassium Phosphate 5 mmol Potassium Chloride 10 meq Magnesium Sulfate gm 0.5 gm In Amino Acid 4 .25%-D10w 1,000 ml @ 75 mls/hr IV .BY DURATION [facility] Rx#:[id number] Oral 440 Tube Feeding 80 Output: Urine 1200 1500 Stool 100 100 Other: Voiding Method Indwelling Catheter Indwelling Catheter # Voids 1 - Exam GENERAL EXAM: Alert, pleasant, 83-year-old white female, dyspneic with conversation, she is on 15 L per high flow nasal cannula, and her pulse ox is 98%, comfortable in no apparent distress. HEAD: Normocephalic/atraumatic. EYES: Normal reaction of pupils, equal size. Conjunctiva pink, sclera white. NOSE: Clear with pink turbinates. THROAT: No erythema or exudates. NECK: No masses, no JVD, no thyroid enlargement, no adenopathy. CHEST: No chest wall deformity. Symmetrical expansion. LUNGS: Equal air entry with mild rhonchi, diminished breath sounds CVS: Irregular rate and rhythm, normal S1 and S2, no gallops, no murmurs, no rubs ABDOMEN: Soft, nontender. No hepatosplenomegaly, normal bowel sounds, no guarding or rigidity. Midline incision with maggy intact, colostomy with liquid yellow output EXTREMITIES: No clubbing, no edema, no cyanosis, 2+ pulses and upper and lower extremities. MUSCULOSKELETAL: Muscle strength and tone normal. SPINE: No scoliosis or deformity SKIN: No rashes CENTRAL NERVOUS SYSTEM: Alert and oriented -3. No focal deficits, tone is normal in all 4 extremities. PSYCHIATRIC: Alert and oriented -3. Appropriate affect. Intact judgment and insight. - Labs CBC & Chem 7: 02/23/19 05:02 02/23/19 05:00 Labs: Abnormal Lab Results - Last 24 Hours (Table) 02/22/19 02/22/19 02/22/19 Range/Units 12:03 16:40 20:41 WBC (3.8-10.6) k/uL RBC (3.80-5.40) m/uL Hgb (11.4-16.0) gm/dL Hct (34.0-46.0) % Plt Count (150-450) k/uL Neutrophils # (1.3-7.7) k/uL Lymphocytes # (1.0-4.8) k/uL Sodium (137-145) mmol/L Carbon Dioxide (22-30) mmol/L BUN (7-17) mg/dL Creatinine (0.52-1.04) mg/dL Glucose (74-99) mg/dL POC Glucose (mg/dL) 171 H 157 H 117 H (75-99) mg/dL Magnesium (1.6-2.3) mg/dL AST (14-36) U/L ALT (4-34) U/L Alkaline Phosphatase (38-126) U/L Total Protein (6.3-8.2) g/dL Albumin (3.5-5.0) g/dL 02/23/19 02/23/19 02/23/19 Range/Units 05:00 05:02 06:49 WBC 16.2 H (3.8-10.6) k/uL RBC 2.85 L (3.80-5.40) m/uL Hgb 8.7 L (11.4-16.0) gm/dL Hct 26.5 L (34.0-46.0) % Plt Count 721 H (150-450) k/uL Neutrophils # 13.5 H (1.3-7.7) k/uL Lymphocytes # 0.8 L (1.0-4.8) k/uL Sodium 133 L (137-145) mmol/L Carbon Dioxide 21 L (22-30) mmol/L BUN 56 H (7-17) mg/dL Creatinine 2.17 H (0.52-1.04) mg/dL Glucose 155 H (74-99) mg/dL POC Glucose (mg/dL) 181 H (75-99) mg/dL Magnesium 2.4 H (1.6-2.3) mg/dL AST 50 H (14-36) U/L ALT 48 H (4-34) U/L Alkaline Phosphatase 344 H (38-126) U/L Total Protein 5.8 L (6.3-8.2) g/dL Albumin 2.7 L (3.5-5.0) g/dL 02/23/19 Range/Units 08:13 WBC (3.8-10.6) k/uL RBC (3.80-5.40) m/uL Hgb (11.4-16.0) gm/dL Hct (34.0-46.0) % Plt Count (150-450) k/uL Neutrophils # (1.3-7.7) k/uL Lymphocytes # (1.0-4.8) k/uL Sodium (137-145) mmol/L Carbon Dioxide (22-30) mmol/L BUN (7-17) mg/dL Creatinine (0.52-1.04) mg/dL Glucose (74-99) mg/dL POC Glucose (mg/dL) 197 H (75-99) mg/dL Magnesium (1.6-2.3) mg/dL AST (14-36) U/L ALT (4-34) U/L Alkaline Phosphatase (38-126) U/L Total Protein (6.3-8.2) g/dL Albumin (3.5-5.0) g/dL Assessment and Plan Plan: Assessment: #1. Acute bowel obstruction, status post exploratory laparotomy, extensive lysis of adhesions, sigmoid colectomy, and colostomy, postoperative day 11 #2. Acute hypoxic respiratory failure suspect aspiration pneumonia, and postoperative atelectasis #3. Acute urinary tract infection secondary to Klebsiella pneumonia and E. coli, susceptible to Zosyn which the patient is currently on #4. A. fib with RVR, on oral metoprolol for rate control, and Eliquis #5. Chronic atrial fibrillation #6. Benign essential hypertension #7. History of hyperlipidemia #8. Acute on chronic renal failure patient has chronic kidney disease stage III at baseline Plan: Continue current antibiotics, patient remains on Zosyn, she's been afebrile, hemodynamically she stable, she is however in A. fib RVR, she is just on metoprolol for rate control, patient may need adjustment in her medications for better rate control, aggressive pulmonary toileting, but the patient to sit up in the chair, she will receive a PICC line today still remains on PPN for supplementation of nutrition, she is on oral diet, no nausea or vomiting, colostomy is functioning. Incentive spirometry use, wean FiO2, but the patient sit up in the chair, consult physical therapy. I performed a history & physical examination of the patient and discussed their management with my nurse practitioner, Suzanne Kaur. I reviewed the nurse practitioner's note and agree with the documented findings and plan of care. Lung sounds are positive for diminished breath sounds with minimal rhonchi. The findings and the impression was discussed with the patient. I attest to the documentation by the nurse practitioner. Time with Patient: Less than 30
--- NOTE | 2019-02-23 11:11 | XR ---
EXAMINATION TYPE: XR chest 1V confirm line [facility] DATE OF EXAM: 02/23/2019 COMPARISON: Chest x-ray of 02/23/2019 earlier on the same date. HISTORY: PICC placement TECHNIQUE: Single frontal view of the chest is obtained. FINDINGS: Low lung volumes and patchy bibasilar opacities with enlarged cardiac mediastinal silhouet te is redemonstrated. Tortuous brachiocephalic artery again noted. Malposition right PICC has been pl aced oriented cephalad overlying the soft tissues of the neck in the region of the right internal jug ular vein. Extensive degenerative change of the shoulders. IMPRESSION: Malpositioned PICC extending into the right internal jugular. Repositioning is recommend ed.
--- NOTE | 2019-02-23 11:30 | IR ---
PICC LINE PLACEMENT: HISTORY: Infection requiring long-term antibiotic therapy PROCEDURE: Ultrasound guidance of PICC line placement. PACKAGE CRIMPER: Dr. Gasca. COMPLICATIONS: None ANESTHESIA: 1. 1% Lidocaine locally. FINDINGS/TECHNIQUE: The procedure was explained to the patient. The risks, complications, benefits and alternatives were discussed and any questions were answered. Informed consent was obtained. The patient was placed supine on the fluoroscopic table and prepped and draped in the usual sterile fas ion. Utilizing a 21 gauge needle and sonographic guidance, access in the right basilic vein was ach ieved and there is placement of a 0.018 guidewire. The vein is patent. A 5-F. sheath was placed ove r the guidewire. The guidewire and dilator were removed and a 5-F. Double lumen PICC line was placed through the sheath with the chest x-ray confirming the tip at the level of the SVC. The sheath was removed, the catheter was flushed and sutured into position. The patient was stable throughout the p rocedure and remained stable upon discharge from the Department of Radiology. The vein puncture was patent under ultrasound. A correa scale image was obtained to document patency of the vein punctured. All elements of the maximal barrier technique were utilized. IMPRESSION: 1. Successful PICC line placement under ultrasound performed bedside within the ICU.
[2019-02-23] MEDS: DRONABINOL 2.5 MG CAP PO SCH ×2 (11:39→18:30)
[2019-02-23] MEDS ORDERED: 1: MVI, ADULT NO.4 WITH VIT K 10 ML, TRACE (CONC-1ML/DOSE) 1 ML, SODIUM ACETATE 30 MEQ, IV SCH ×5 (12:00)
--- NOTE | 2019-02-23 12:37 | XR ---
EXAMINATION TYPE: XR chest 1V confirm line [facility] DATE OF EXAM: 02/23/2019 COMPARISON: 02/23/2019 at 10:46 AM HISTORY: PICC placement TECHNIQUE: Single frontal view of the chest is obtained. FINDINGS: Again there are low lung volumes and patchy bibasilar opacities. There is nonenlarged card iac mediastinal silhouette is redemonstrated. Tortuous brachiocephalic artery again noted. Malpositio n right PICC has been placed oriented cephalad overlying the soft tissues of the neck in the region o f the right internal jugular vein. Extensive degenerative change of the shoulders. IMPRESSION: Redemonstration of a malpositioned PICC. Repositioning is recommended.
--- NOTE | 2019-02-23 12:38 | XR ---
EXAMINATION TYPE: XR chest 1V confirm line [facility] DATE OF EXAM: 02/23/2019 COMPARISON: 02/23/2019 at 10:48 AM HISTORY: PICC placement TECHNIQUE: Single frontal view of the chest is obtained. FINDINGS: The previously seen malpositioned right PICC has been replaced and now terminates appropri ately. The proximal superior vena cava. Again there are low lung volumes and patchy bibasilar opaciti es. Cardiomediastinal silhouette remains enlarged. Tortuous brachiocephalic artery again noted. Exten sive degenerative change of the shoulders. IMPRESSION: Properly positioned right PICC terminating in the proximal superior vena cava.
[2019-02-23 12:48] LABS: Glucose,Whole Blood 179 mg/dL (75-99)
[2019-02-23] MEDS: FAT EMULSION 20% 250 ML IV SCH (13:06)
--- NOTE | 2019-02-23 13:37 | P.PN ---
Subjective Progress Note Date: 02/23/19 (Abdominal distention, empathetic on percussion) Progress note date of service 02/23/2019. Dictation by Dr. Engel. Patient is awake alert oriented, Complained of abdominal pain resulted then taken to injection of morphine plus the [place] to give her pain improvement. Despite that she is on Duragesic patch 25 g every 72h. On exam lung is created bilateral right lower lung atelectasis. Heart currently well controlled with the paroxysmal atrial fibrillation has been fairly in good control. Abdomen distended and tympanitic tender on percussion. Extremities no edema clubbing the thrombotic stocking inflatable. No edema. Pulses. The neurologically she is stable Assessment: Patient in ileus and distention of the abdomen to tympanitic. Patient on TPN and he started peripheral PICC line. Plan: Computed tomography scan of the abdomen and pelvis to clarify the issue of daily. There is no gas in the pouch. Objective - Vital Signs Vital signs: Vital Signs Temp 98.6 F 02/23/19 04:00 Pulse 113 H 02/23/19 09:52 Resp 22 02/23/19 04:00 BP 153/72 02/23/19 06:00 Pulse Ox 97 02/23/19 06:00 Intake & Output 02/22/19 02/23/19 02/23/19 18:59 06:59 18:59 Intake Total 1620 915 Output Total 1300 1600 Balance 320 -685 Weight 76.1 kg 76.1 kg Intake: IV 1100 915 0.9 Normal saline 15 Mvi, Adult No.4 with Vit 900 900 K 10 ml Trace (Conc-1Ml/ Dose) 1 ml Sodium Acetate 30 meq Calcium Gluconate 1 gm Potassium Phosphate 5 mmol Potassium Chloride 10 meq In Amino Acid 4.25%-D10w 1,000 ml @ 75 mls/hr IV .BY DURATION [facility] Rx#: [id number] Piperacillin-Tazobactam 3 100 .375 gm In Sodium Chloride 0.9% 100 ml @ 25 mls/hr IVPB Q8HR [facility] Rx# :[id number] Sodium Acetate 30 meq 100 Calcium Gluconate 1 gm Potassium Phosphate 5 mmol Potassium Chloride 10 meq Magnesium Sulfate gm 0.5 gm In Amino Acid 4 .25%-D10w 1,000 ml @ 75 mls/hr IV .BY DURATION [facility] Rx#:[id number] Oral 440 Tube Feeding 80 Output: Urine 1200 1500 Stool 100 100 Other: Voiding Method Indwelling Catheter Indwelling Catheter # Voids 1 - Labs CBC & Chem 7: 02/23/19 05:02 02/23/19 05:00 Labs: Abnormal Lab Results - Last 24 Hours (Table) 02/22/19 02/22/19 02/23/19 Range/Units 16:40 20:41 05:00 WBC (3.8-10.6) k/uL RBC (3.80-5.40) m/uL Hgb (11.4-16.0) gm/dL Hct (34.0-46.0) % Plt Count (150-450) k/uL Neutrophils # (1.3-7.7) k/uL Lymphocytes # (1.0-4.8) k/uL Sodium 133 L (137-145) mmol/L Carbon Dioxide 21 L (22-30) mmol/L BUN 56 H (7-17) mg/dL Creatinine 2.17 H (0.52-1.04) mg/dL Glucose 155 H (74-99) mg/dL POC Glucose (mg/dL) 157 H 117 H (75-99) mg/dL Magnesium 2.4 H (1.6-2.3) mg/dL AST 50 H (14-36) U/L ALT 48 H (4-34) U/L Alkaline Phosphatase 344 H (38-126) U/L Total Protein 5.8 L (6.3-8.2) g/dL Albumin 2.7 L (3.5-5.0) g/dL 02/23/19 02/23/19 02/23/19 Range/Units 05:02 06:49 08:13 WBC 16.2 H (3.8-10.6) k/uL RBC 2.85 L (3.80-5.40) m/uL Hgb 8.7 L (11.4-16.0) gm/dL Hct 26.5 L (34.0-46.0) % Plt Count 721 H (150-450) k/uL Neutrophils # 13.5 H (1.3-7.7) k/uL Lymphocytes # 0.8 L (1.0-4.8) k/uL Sodium (137-145) mmol/L Carbon Dioxide (22-30) mmol/L BUN (7-17) mg/dL Creatinine (0.52-1.04) mg/dL Glucose (74-99) mg/dL POC Glucose (mg/dL) 181 H 197 H (75-99) mg/dL Magnesium (1.6-2.3) mg/dL AST (14-36) U/L ALT (4-34) U/L Alkaline Phosphatase (38-126) U/L Total Protein (6.3-8.2) g/dL Albumin (3.5-5.0) g/dL 02/23/19 Range/Units 12:47 WBC (3.8-10.6) k/uL RBC (3.80-5.40) m/uL Hgb (11.4-16.0) gm/dL Hct (34.0-46.0) % Plt Count (150-450) k/uL Neutrophils # (1.3-7.7) k/uL Lymphocytes # (1.0-4.8) k/uL Sodium (137-145) mmol/L Carbon Dioxide (22-30) mmol/L BUN (7-17) mg/dL Creatinine (0.52-1.04) mg/dL Glucose (74-99) mg/dL POC Glucose (mg/dL) 179 H (75-99) mg/dL Magnesium (1.6-2.3) mg/dL AST (14-36) U/L ALT (4-34) U/L Alkaline Phosphatase (38-126) U/L Total Protein (6.3-8.2) g/dL Albumin (3.5-5.0) g/dL
[2019-02-23] MEDS ORDERED: IOPAMIDOL CONTRAST (ORAL USE) VIAL PO PRN (16:17)
[2019-02-23 17:15] LABS: Glucose,Whole Blood 156 mg/dL (75-99)
[2019-02-23] MEDS: 1: MVI, ADULT NO.4 WITH VIT K 10 ML, TRACE (CONC-1ML/DOSE) 1 ML, SODIUM ACETATE 30 MEQ, IV SCH ×12 (18:00→19:36)
--- NOTE | 2019-02-23 18:58 | CT ---
EXAMINATION TYPE: CT abdomen pelvis wo con DATE OF EXAM: 02/23/2019 COMPARISON: 02/07/2019 HISTORY: ABDOMINAL DISTENTION CT DLP: 598.3 mGycm Automated exposure control for dose reduction was used. There is airspace infiltrate and atelectasis at both lung bases. There is elevated right diaphragm. T here is probably small right pleural effusion. Gallbladder is large and measures 5 cm in diameter. Stomach is large. Spleen is intact. There are alex e cystic changes throughout the pancreas. There is probably dilated pancreatic duct. There are multip le cystic areas in the pancreatic head. The bile ducts are not dilated. There is moderate bilateral hydronephrosis. There is significant left renal atrophy. Right ureter is dilated. There is Murphy catheter in the urinary bladder. Left ureter is dilated. Bladder distends smo othly. There is moderate free fluid in the cul-de-sac that measures 9 cm. There is no inguinal hernia . There is oral contrast in the large bowel down to the rectum. There are numerous large bowel divert icula. I see no sign of diverticulitis. There is some mild mesenteric edema. There are multiple mildl y dilated fluid and air-filled loops of small bowel throughout the abdomen. Small bowel measures up t o 3.5 cm. There is colostomy in the left mid abdomen. There is contrast in the rectal stump. There is a few millimeter anterior subluxation of L4 3 in relation to L4. There is 20% depression sup erior endplate of L1 vertebra. Unchanged. IMPRESSION: Large discrete fluid collection in the pelvis between the rectum and the urinary bladder is new bryanna red to old exam and could be an abscess. There is colostomy in left lower quadrant that appears functioning. There is significant improvement in the small bowel obstruction and large bowel obstruction compared to old exam. There is increased lower lobe bilateral pulmonary consolidation and atelectasis compared to old exam. There is severe bilateral hydronephrosis and hydroureter that appears worse than last exam. There is evidence for bilateral chronic distal ureteral obstruction. There is moderate urine in the urinary bl adder with the Murphy catheter. Bladder catheter malfunction should be considered. Extensive colonic diverticulosis without diverticulitis. Advanced left renal atrophy.
[2019-02-23] MEDS: DULoxetine HCL 60 MG CAPSULE.DR PO SCH (21:06)
[2019-02-23] MEDS: ATORVASTATIN 10 MG TAB PO SCH (21:06)
--- NOTE | 2019-02-23 23:28 | XR ---
EXAMINATION TYPE: XR chest 1V portable DATE OF EXAM: 02/23/2019 COMPARISON: 02/23/2019 HISTORY: PICC line placement TECHNIQUE: Single view FINDINGS: There is right-sided PICC line catheter with the tip extending into the neck in the jugular vein. Heart is enlarged. There is pulmonary vascular congestion. There is some blunting of the costo phrenic angles. IMPRESSION: There is malposition of the PICC line catheter in the jugular vein. Congestive heart failure with pleural effusions. Pulmonary congestion slightly worse than exam this m mar.
[2019-02-23 23:33] LABS: Glucose,Whole Blood 165 mg/dL (75-99)
[2019-02-24] MEDS: DILTIAZEM ORAL 60 MG TAB PO SCH ×4 (00:07→22:10)
[2019-02-24] MEDS: SODIUM CHLORIDE 0.9% 1,000 ML IV SCH (03:31)
[2019-02-24 04:29] LABS: Albumin 2.3 g/dL (3.5-5.0); Calcium 8.8 mg/dL (8.4-10.2); Magnesium 2.3 mg/dL (1.6-2.3); Phosphorus 4.7 mg/dL (2.5-4.5); Potassium 4.7 mmol/L (3.5-5.1); Total Bilirubin 0.6 mg/dL (0.2-1.3)
[2019-02-24 06:51] LABS: Glucose,Whole Blood 155 mg/dL (75-99)
[2019-02-24] MEDS: INSULIN ASPART (NovoLOG) 100 UNIT/ML VIAL SQ SCH ×4 (06:54→22:11)
[2019-02-24 08:02] LABS: Basophils % (A) 0 %; Eosinophils # (A) 0.3 k/uL (0-0.7); Eosinophils % (A) 2 %; HGB 7.7 gm/dL (11.4-16.0); Hypochromasia Slight; Lymphocytes # (A) 0.8 k/uL (1.0-4.8); Lymphocytes % (A) 6 %; MCH 28.6 pg (25.0-35.0); MCHC 30.8 g/dL (31.0-37.0); MCV 92.7 fL (80.0-100.0); Mean Platelet Volume 8.8; Monocytes # (A) 0.9 k/uL (0-1.0); Monocytes % (A) 6 %; Neutrophils # (A) 11.5 k/uL (1.3-7.7); Neutrophils % (A) 82 %; Platelet Count 688 k/uL (150-450); RBC 2.69 m/uL (3.80-5.40); RDW 14.5 % (11.5-15.5)
[2019-02-24] MEDS: APIXABAN 2.5 MG TABLET PO SCH (08:40)
[2019-02-24] MEDS ORDERED: HEPARIN SODIUM,PORCINE 5,000 UNIT/ML 1 ML VIAL IV PRN (09:27)
--- NOTE | 2019-02-24 09:38 | P.PN ---
Subjective Progress Note Date: 02/24/19 Principal diagnosis: Acute bowel obstruction status post laparotomy with extensive lysis of adhesions and sigmoid colectomy and end colostomy postoperative day 5 This is a pleasant 83-year-old female patient admitted back on 02/07/2019 with complaints of constipation and abdominal discomfort. She had not moved her bowels for several days prior. Abdominal x-rays did show evidence of constipation. Fleet enema and MiraLAX at home were unsuccessful. She was subsequently admitted for abdominal bloating and discomfort. She was found to have a colon obstruction and yesterday had undergone exposure laparotomy, extensive lysis of adhesions, sigmoid colectomy, end colostomy done by Dr. Miller. She remained hypoxic postoperatively and was placed on BiPAP with an FiO2 of 80%. We're consulted for the same. No chest x-ray was done. She is seen today on the selective care unit. She is currently awake and alert in no acute distress. She is having some ongoing abdominal discomfort. She has a midline incision with maggy intact and a colostomy with stool present. She is currently on 6 L high flow nasal cannula and maintaining O2 saturation in the mid 90s. She denies any worsening shortness of breath, cough or congestion. Urine culture was positive for Klebsiella pneumoniae and E coli. Blood cultures had revealed no growth. White count 12.8. Hemoglobin 11.6. Sodium 148. Potassium 3.9. Creatinine 2.20. She has D5.45 running at 100 ML's per hour. She is currently on ceftriaxone and Flagyl. PPN and lipids have been ordered. The patient was having issues with atrial fibrillation preoperatively and was initially on a heparin drip. The plan from cardiology is to initiate Eliquis once cleared surgically. On today's evaluation of 02/14/2019 I was asked even with this patient and the patient was found to be more lethargic and short of breath. I the patient did she is relatively comfortable on oxygen at 4 L. Nevertheless, she states that she wants to and she is unable to take this ongoing treatment any further. In terms of her cardiac condition, she is in atrial fibrillation with rapid ventricular response and a current heart rate is around 120-140. She has a Murphy catheter urine output is in order of 30 mL an hour. She had a chest x-ray that showed increased opacification of the lung bases. Ultrasound of the chest was done that showed small pockets and based on the ultrasound these markers were not and minimal 4 thoracentesis. She is on Diprivan running at the rate of 75 mL an hour. She is also on IV fluids running at 75 mL an hour of normal saline. The patient has a positive fluid balance of 1.1 L. She has a creatinin e of 2.4 with a mean of 34. ABCDs not done this morning. She has a positive output and her colostomy bag. The surgical wound site is dry clean and intact. She is afebrile for now. on 02/16/2016, the patient is transferred to the intensive care unit. The patient's oxygen requirements went up yesterday and she is currently on15 L of oxygen by nasal cannula. I opted to bring her down to the ICU. The ultrasound of the chest was not conclusive in terms of fluid and based on that I ordered a CAT scan of the chest that was done without contrast and the CAT scan showed worsening atelectatic changes in lung bases, pneumonia cannot be completely excluded. The pleural effusions were very tiny and there were not and the blood for thoracentesis. Based on that, no intervention was done. Currently she is awake and alert. She is on a combination of IV Rocephin and Flagyl.er white cell count came up to 18. Her creatinine is up to 2.1. Creatinine is stable for now. The lactic acid level was low at 1. She is awake. She is alert. The colostomy is functioning and she has adequate output at this point in time.The patient still on TPN and were going to initiate someclear liquid diet today. Reevaluated today on 02/16/2019, patient remains in the ICU, O2 saturation is marginal, still requiring a high flow nasal cannula at 15 L/m, chest x-ray shows significant airspace disease and atelectasis with consolidation at the bases bilaterally right more so than left, hence I recommended that we use intermittently BiPAP with IPAP of 12 and EPAP of 4. Continues to have leukocytosis with WBC count of 14.5, hemoglobin is 10.1 lites are normal BUN is 41 creatinine 2.01. Close to her baseline since admission. Chest x-ray is quite concerning to me, and CT of the chest was also reviewed, patient has significant bibasilar consolidation and air bronchograms noted in both lungs bilaterally more so in the right lower lobe. On 02/17/2019 patient seen in follow-up in the intensive care unit, she is off BiPAP support currently, she is on 15 L, and her pulse ox is 92-94%, either tachycardic on a monitor, hemodynamically patient is stable, she states she feels short of breath, she has a congested cough, at times she is able to produce small amount of yellowish sputum, lung sounds are positive for rhonchi, and some wheezing, urine culture was positive for Klebsiella pneumonia and E. c rema, blood culture has shown no growth, patient's antibiotics have been simplified and currently patient is on Zosyn. White count is trending down, it is 13.8 on today's labs, hemoglobin is 10.2, sodium was 135, dorsiflexors were unremarkable, B1 is 41 creatinine is 1.94, profile is slightly improved, incentive spirometry effort is poor, and patient is only able to achieve 500 on the incentive spirometer today. Patient continues to be nothing by mouth, she continues on TPN, she was started on promotility agent, in the form of Reglan. Was no output from her ostomy overnight. Surgery is following. On 02/23/2019 patient was seen in follow-up in the intensive care unit. This is postoperative day #11, status post exploratory laparotomy, and extensive lysis of adhesions, sigmoid colectomy and colostomy for acute bowel obstruction. She is awake and alert, does not appear to be in any acute distress, still requiring high flow oxygen, to 15 L currently, her pulse ox is 97%, we will try to wean it down, she's been afebrile, she is however in A. fib RVR with a rate of 120-140, currently on oral metoprolol for rate control, she is on Lopressor 50 mg 3 times daily, is on IV antibiotics, no form of Zosyn, urine culture showed Klebsiella pneumonia and E. coli, susceptible to Zosyn. Hemodynamically she is stable, there have been no fevers, his labs have been reviewed, showing white blood cell count of 16.2, hemoglobin of 8.7, platelet count of 721, sodium is 133, potassium is 5.0, CO2 is 21, BUN is 56, creatinine is 2.17. Today's chest x-ray has been reviewed during patchy bibasilar opacities , low lung volumes, persistent trace pleural effusions, and atelectasis. Mid abdominal incision clean dry and intact, maggy are intact, left abdomen colostomy is with liquid stool, bowel sounds are present. Patient remains on TPN for supplementation of nutrition, and patient is also on the chopped dysphagia 3 diet with 1500 mL fluid restriction. On 02/24/2019 patient seen in follow-up in the intensive care unit, she is resting comfortably in bed, this is postop day 12 status post exploratory laparotomy, and extensive lysis of adhesions, sigmoid colectomy and colostomy for acute bowel obstruction. Yesterday patient had a CT of abdomen and pelvis which revealed a large discrete fluid collection in the pelvis between the rectum and the urinary bladder that could be related to an abscess. Interventional radiology has been consulted for possible drainage of this abscess, however patient has been on Eliquis, and IR will not be able to proceed with the procedure for about 48 hours. Patient denies abdominal discomfort, NG tube has been inserted, and her about 300-400 mL of brownish colored output. Denies any worsening dyspnea, she needs a lot of encouragement to work with the incentive spirometer, and she is only achieving 250-500 mL on it today. Remains in A. fib but today's rate is better controlled, oral diltiazem has been added in addition to metoprolol. Hemodynamically stable. Patient is Zosyn for empiric antibiotic coverage, she's been afebrile, today's labs have been reviewed, showing white blood cell count of 14.0, hemoglobin of 7.7, serum sodium is 132, the rest of the electrolytes were within normal limits, BUN is 63 and creatinine is 2.4, chest x-ray today shows congestive heart failure with pleural effusions. Objective - Vital Signs Vital signs: Vital Signs Temp 98.5 F 02/24/19 03:00 Pulse 69 02/24/19 06:00 Resp 13 02/24/19 06:00 BP 100/58 02/24/19 06:00 Pulse Ox 94 L 02/24/19 06:00 Intake & Output 02/23/19 02/24/19 02/24/19 18:59 06:59 18:59 Intake Total 503.2 491.6 150 Output Total 392 1440 500 Balance 111.2 -948.4 -350 Weight 76.1 kg 74.3 kg Intake: IV 420 450 150 0.9 Normal saline 420 450 150 Intake, IV Titration 83.2 41.6 Amount Fat Emulsion 20% 250 ml @ 83.2 41.6 20.833 mls/hr IV MoWeFr@ 1300 [facility] Rx#:[id number] Output: Urine 392 1440 250 Oral Regurgitation 250 Other: Voiding Method Indwelling Catheter Indwelling Catheter - Exam GENERAL EXAM: Alert, pleasant, 83-year-old white female, dyspneic with conversation, she is on 10 L per high flow nasal cannula, and her pulse ox is 94%, comfortable in no apparent distress. HEAD: Normocephalic/atraumatic. EYES: Normal reaction of pupils, equal size. Conjunctiva pink, sclera white. NOSE: Clear with pink turbinates. NG-tube is in place to low intermittent suction THROAT: No erythema or exudates. NECK: No masses, no JVD, no thyroid enlargement, no adenopathy. CHEST: No chest wall deformity. Symmetrical expansion. LUNGS: Equal air entry with mild rhonchi, diminished breath sounds CVS: Irregular rate and rhythm, normal S1 and S2, no gallops, no murmurs, no rubs ABDOMEN: Soft, nontender. No hepatosplenomegaly, normal bowel sounds, no guarding or rigidity. Midline incision with maggy intact, colostomy with liquid yellow output EXTREMITIES: No clubbing, no edema, no cyanosis, 2+ pulses and upper and lower extremities. MUSCULOSKELETAL: Muscle strength and tone normal. SPINE: No scoliosis or deformity SKIN: No rashes CENTRAL NERVOUS SYSTEM: Alert and oriented -2. No focal deficits, tone is normal in all 4 extremities. PSYCHIATRIC: Alert and oriented -2. Appropriate affect. Intact judgment and insight. - Labs CBC & Chem 7: 02/24/19 04:00 02/24/19 04:00 Labs: Abnormal Lab Results - Last 24 Hours (Table) 02/23/19 02/23/19 02/23/19 Range/Units 12:47 17:14 23:31 WBC (3.8-10.6) k/uL RBC (3.80-5.40) m/uL Hgb (11.4-16.0) gm/dL Hct (34.0-46.0) % MCHC (31.0-37.0) g/dL Plt Count (150-450) k/uL Neutrophils # (1.3-7.7) k/uL Lymphocytes # (1.0-4.8) k/uL Sodium (137-145) mmol/L BUN (7-17) mg/dL Creatinine (0.52-1.04) mg/dL Glucose (74-99) mg/dL POC Glucose (mg/dL) 179 H 156 H 165 H (75-99) mg/dL Phosphorus (2.5-4.5) mg/dL Alkaline Phosphatase (38-126) U/L Total Protein (6.3-8.2) g/dL Albumin (3.5-5.0) g/dL 02/24/19 02/24/19 02/24/19 Range/Units 04:00 04:00 06:49 WBC 14.0 H (3.8-10.6) k/uL RBC 2.69 L (3.80-5.40) m/uL Hgb 7.7 L (11.4-16.0) gm/dL Hct 25.0 L (34.0-46.0) % MCHC 30.8 L (31.0-37.0) g/dL Plt Count 688 H (150-450) k/uL Neutrophils # 11.5 H (1.3-7.7) k/uL Lymphocytes # 0.8 L (1.0-4.8) k/uL Sodium 132 L (137-145) mmol/L BUN 63 H (7-17) mg/dL Creatinine 2.44 H (0.52-1.04) mg/dL Glucose 197 H (74-99) mg/dL POC Glucose (mg/dL) 155 H (75-99) mg/dL Phosphorus 4.7 H (2.5-4.5) mg/dL Alkaline Phosphatase 221 H (38-126) U/L Total Protein 5.0 L (6.3-8.2) g/dL Albumin 2.3 L (3.5-5.0) g/dL Assessment and Plan Plan: Assessment: #1. Acute bowel obstruction, status post exploratory laparotomy, extensive lysis of adhesions, sigmoid colectomy, and colostomy, postoperative day 12 #2. Large fluid collection in the pelvis could be related to an abscess, interventional radiology has been consulted for drainage #3. Bilateral hydronephrosis seen on the CT of the abdomen and pelvis #4. Acute hypoxic respiratory failure suspect aspiration pneumonia, and postoperative atelectasis #5. Acute urinary tract infection secondary to Klebsiella pneumonia and E. coli, susceptible to Zosyn which the patient is currently on #6. A. fib with RVR, on oral metoprolol for rate control, and Eliquis #7. Chronic atrial fibrillation #8. Benign essential hypertension #9. History of hyperlipidemia #10. Acute on chronic renal failure patient has chronic kidney disease stage III at baseline Plan: Postop the Eliquis, was started on heparin infusion for anticoagulation this evening, interventional radiology has been consulted for possibility of drainage of the pelvic abscess, continue same antibiotics, hemodynamically stable, coverage deep breathing and coughing. Fio2 down to 10 L, urology service has been consulted for hydroureter and hydronephrosis. Continue TPN infusion, patient is nothing by mouth. We will continue to follow patient will remain in the intensive care unit, overall prognosis is guarded I performed a history & physical examination of the patient and discussed their management with my nurse practitioner, Suzanne Kaur. I reviewed the nurse practitioner's note and agree with the documented findings and plan of care. Prema ng sounds are positive for diminished breath sounds with minimal rhonchi. The findings and the impression was discussed with the patient. I attest to the documentation by the nurse practitioner. Time with Patient: Less than 30
[2019-02-24] MEDS: PIPERACILLIN-TAZOBACTAM 3.375 GM in SODIUM CHLORIDE 0.9% 100 ML IVPB SCH ×2 (09:55→22:09)
[2019-02-24] MEDS: BUDESONIDE 0.5 MG/2 ML NEBU INHALATION SCH ×2 (10:18→18:55)
[2019-02-24] MEDS: IPRATROPIUM-ALBUTEROL 3 ML NEB INHALATION SCH ×4 (10:18→18:55)
[2019-02-24] MEDS: METOPROLOL TARTRATE 50 MG TAB PO SCH ×3 (10:45→22:10)
[2019-02-24] MEDS: cloNIDine HCL 0.1 MG TAB PO SCH (10:45)
[2019-02-24] MEDS: 1: MVI, ADULT NO.4 WITH VIT K 10 ML, TRACE (CONC-1ML/DOSE) 1 ML, SODIUM ACETATE 30 MEQ, IV SCH ×5 (10:45)
[2019-02-24] MEDS: DRONABINOL 2.5 MG CAP PO SCH ×2 (10:45→17:13)
--- NOTE | 2019-02-24 11:22 | P.PN ---
Subjective Progress Note Date: 02/24/19 Seen and examined for the follow-up of acute kidney injury. Still on TPN. Objective - Vital Signs Vital signs: Vital Signs Temp 98 F 02/24/19 08:00 Pulse 110 H 02/24/19 10:35 Resp 9 L 02/24/19 10:00 BP 117/78 02/24/19 10:00 Pulse Ox 92 L 02/24/19 10:19 Intake & Output 02/23/19 02/24/19 02/24/19 18:59 06:59 18:59 Intake Total 503.2 491.6 650 Output Total 392 1440 1025 Balance 111.2 -948.4 -375 Weight 76.1 kg 74.3 kg Intake: IV 420 450 350 0.9 Normal saline 420 450 150 Piperacillin-Tazobactam 3 100 .375 gm In Sodium Chloride 0.9% 100 ml @ 25 mls/hr IVPB Q8HR [facility] Rx# :[id number] Sodium Chloride 0.9% 1, 100 000 ml @ 50 mls/hr IV . Q20H [facility] Rx#:[id number] Intake, IV Titration 83.2 41.6 300 Amount Fat Emulsion 20% 250 ml @ 83.2 41.6 20.833 mls/hr IV MoWeFr@ 1300 [facility] Rx#:[id number] Mvi, Adult No.4 with Vit 150 K 10 ml Trace (Conc-1Ml/ Dose) 1 ml Sodium Acetate 40 meq Calcium Gluconate 1 gm In Amino Acid 4.25% -D10w 1,000 ml @ 75 mls/ hr IV .BY DURATION [facility] Rx #:[id number] Sodium Acetate 40 meq 150 Calcium Gluconate 1 gm In Amino Acid 4.25%-D10w 1, 000 ml @ 75 mls/hr IV .BY DURATION [facility] Rx#: [id number] Output: Urine 392 1440 775 Oral Regurgitation 250 Other: Voiding Method Indwelling Catheter Indwelling Catheter Indwelling Catheter - Exam No acute distress S1-S2 heard Lungs clear No edema - Labs CBC & Chem 7: 02/24/19 04:00 02/24/19 04:00 Labs: Abnormal Lab Results - Last 24 Hours (Table) 02/23/19 02/23/19 02/23/19 Range/Units 12:47 17:14 23:31 WBC (3.8-10.6) k/uL RBC (3.80-5.40) m/uL Hgb (11.4-16.0) gm/dL Hct (34.0-46.0) % MCHC (31.0-37.0) g/dL Plt Count (150-450) k/uL Neutrophils # (1.3-7.7) k/uL Lymphocytes # (1.0-4.8) k/uL Sodium (137-145) mmol/L BUN (7-17) mg/dL Creatinine (0.52-1.04) mg/dL Glucose (74-99) mg/dL POC Glucose (mg/dL) 179 H 156 H 165 H (75-99) mg/dL Phosphorus (2.5-4.5) mg/dL Alkaline Phosphatase (38-126) U/L Total Protein (6.3-8.2) g/dL Albumin (3.5-5.0) g/dL 02/24/19 02/24/19 02/24/19 Range/Units 04:00 04:00 06:49 WBC 14.0 H (3.8-10.6) k/uL RBC 2.69 L (3.80-5.40) m/uL Hgb 7.7 L (11.4-16.0) gm/dL Hct 25.0 L (34.0-46.0) % MCHC 30.8 L (31.0-37.0) g/dL Plt Count 688 H (150-450) k/uL Neutrophils # 11.5 H (1.3-7.7) k/uL Lymphocytes # 0.8 L (1.0-4.8) k/uL Sodium 132 L (137-145) mmol/L BUN 63 H (7-17) mg/dL Creatinine 2.44 H (0.52-1.04) mg/dL Glucose 197 H (74-99) mg/dL POC Glucose (mg/dL) 155 H (75-99) mg/dL Phosphorus 4.7 H (2.5-4.5) mg/dL Alkaline Phosphatase 221 H (38-126) U/L Total Protein 5.0 L (6.3-8.2) g/dL Albumin 2.3 L (3.5-5.0) g/dL Assessment and Plan Assessment: #1 acute kidney injury secondary to prerenal process and also component of hypotension. Creeping creatinine. #2 CK D stage IV with a baseline creatinine of 1.7-1.9 MG per DL. #3 status post exploratory laparotomy with sigmoid colectomy currently on TPN. #4 neurogenic bladder, no has Murphy #5 hyponatremia. #6 A. fib on Cardizem Plan: #1 creatinine creeping, stop clonidine. #2 continue with IV fluids #3 avoid nephrotoxic agents and hypotensive episodes.
--- NOTE | 2019-02-24 11:22 | P.PN ---
<Siobhan Dugan A - Last Filed: 02/24/19 11:20> Subjective Progress Note Date: 02/24/19 CHIEF COMPLAINT: Abdominal pain HISTORY OF PRESENT ILLNESS: Patient is status post exploratory laparotomy, extensive lysis of adhesions, sigmoid colectomy, and end colostomy on 02/12/19. Patient underwent CT abdomen pelvis yesterday revealing large discrete fluid collection in the pelvis between the rectum and the urinary bladder which could be an abscess. multiple mildly dilated fluid and air filled loops of small bowel throughout the abdomen. Small bowel measures up to 3.5 cm. Interventional radiology has been consulted for possible drainage. She has been made NPO. PHYSICAL EXAM: VITAL SIGNS: Reviewed GENERAL: Well-developed in no acute distress. HEENT: No sclera icterus. Extraocular movements grossly intact. Moist buccal mucosa. Head is atraumatic, normocephalic. Hears conversational speech. No nasal drainage. NECK: Supple without lymphadenopathy. CHEST: Non-labored respirations and equal bilateral excursions. CARDIOVASCULAR: Regular rate with regular rhythm. Palpable 2+ radial pulses. ABDOMEN: Soft. Nondistended. Dressing to abdomen clean dry intact. Ostomy with brown liquid stool noted. MUSCULOSKELETAL: No clubbing or cyanosis. NEUROLOGIC: No focal or lateralizing signs. Cranial nerves II through XII grossly intact. PSYCH: Appropriate affect. Alert and oriented to person, place and time. SKIN: Well perfused. Good skin turgor. ASSESSMENT: 1. Abdominal pain, status post exploratory laparotomy, extensive lysis of adhesions, sigmoid colectomy, and end colostomy PLAN: Continue daily dressing changes. Aquacel silver packing to upper open aspect of incision and gauze packing to lower open aspect of incision Continue NG to LIS Continue NPO except medications Continue PPN IR has been consulted for possible drainage of abscess. Patient currently on Eliquis which has been placed on hold. Patient to be placed on heparin drip until IR can perform drainage in approximately 48 hours. Nurse practitioner note has been reviewed by physician. Signing provider agrees with the documented findings, assessment, and plan of care. Objective - Vital Signs Vital signs: Vital Signs Temp 98.5 F 02/24/19 03:00 Pulse 113 H 02/24/19 10:19 Resp 13 02/24/19 06:00 BP 100/58 02/24/19 06:00 Pulse Ox 92 L 02/24/19 10:19 Intake & Output 02/23/19 02/24/19 02/24/19 18:59 06:59 18:59 Intake Total 503.2 491.6 150 Output Total 392 1440 500 Balance 111.2 -948.4 -350 Weight 76.1 kg 74.3 kg Intake: IV 420 450 150 0.9 Normal saline 420 450 150 Intake, IV Titration 83.2 41.6 Amount Fat Emulsion 20% 250 ml @ 83.2 41.6 20.833 mls/hr IV MoWeFr@ 1300 [facility] Rx#:[id number] Output: Urine 392 1440 250 Oral Regurgitation 250 Other: Voiding Method Indwelling Catheter Indwelling Catheter Indwelling Catheter - Labs CBC & Chem 7: 02/24/19 04:00 02/24/19 04:00 Labs: Abnormal Lab Results - Last 24 Hours (Table) 02/23/19 02/23/19 02/23/19 Range/Units 12:47 17:14 23:31 WBC (3.8-10.6) k/uL RBC (3.80-5.40) m/uL Hgb (11.4-16.0) gm/dL Hct (34.0-46.0) % MCHC (31.0-37.0) g/dL Plt Count (150-450) k/uL Neutrophils # (1.3-7.7) k/uL Lymphocytes # (1.0-4.8) k/uL Sodium (137-145) mmol/L BUN (7-17) mg/dL Creatinine (0.52-1.04) mg/dL Glucose (74-99) mg/dL POC Glucose (mg/dL) 179 H 156 H 165 H (75-99) mg/dL Phosphorus (2.5-4.5) mg/dL Alkaline Phosphatase (38-126) U/L Total Protein (6.3-8.2) g/dL Albumin (3.5-5.0) g/dL 02/24/19 02/24/19 02/24/19 Range/Units 04:00 04:00 06:49 WBC 14.0 H (3.8-10.6) k/uL RBC 2.69 L (3.80-5.40) m/uL Hgb 7.7 L (11.4-16.0) gm/dL Hct 25.0 L (34.0-46.0) % MCHC 30.8 L (31.0-37.0) g/dL Plt Count 688 H (150-450) k/uL Neutrophils # 11.5 H (1.3-7.7) k/uL Lymphocytes # 0.8 L (1.0-4.8) k/uL Sodium 132 L (137-145) mmol/L BUN 63 H (7-17) mg/dL Creatinine 2.44 H (0.52-1.04) mg/dL Glucose 197 H (74-99) mg/dL POC Glucose (mg/dL) 155 H (75-99) mg/dL Phosphorus 4.7 H (2.5-4.5) mg/dL Alkaline Phosphatase 221 H (38-126) U/L Total Protein 5.0 L (6.3-8.2) g/dL Albumin 2.3 L (3.5-5.0) g/dL <Kiera Morrison N - Last Filed: 02/25/19 10:41> Subjective Patient seen and evaluated. Less than 400 mL from nasogastric tube. No reports of abdominal pain. At the time of assessment, abdomen nondistended. "I want this tube out my nose." Patient scheduled for CT-guided drainage of intrapelvic fluid collection pending improvement of coagulation Objective - Vital Signs Vital signs: Vital Signs Temp 98.4 F 02/25/19 08:00 Pulse 88 02/25/19 10:00 Resp 14 02/25/19 10:00 BP 122/78 02/25/19 10:00 Pulse Ox 91 L 02/25/19 10:00 Intake & Output 02/24/19 02/25/19 02/25/19 18:59 06:59 18:59 Intake Total 1600 1400 550 Output Total 1860 1280 690 Balance -260 120 -140 Weight 74.5 kg Intake: IV 700 1325 550 0.9 Normal saline 150 PPN 825 300 Piperacillin-Tazobactam 3 100 50 .375 gm In Sodium Chloride 0.9% 100 ml @ 25 mls/hr IVPB Q12HR [facility] Rx #:[id number] Piperacillin-Tazobactam 3 100 .375 gm In Sodium Chloride 0.9% 100 ml @ 25 mls/hr IVPB Q8HR [facility] Rx# :[id number] Sodium Chloride 0.9% 1, 450 400 200 000 ml @ 50 mls/hr IV . Q20H [facility] Rx#:[id number] Intake, IV Titration 900 75 Amount Mvi, Adult No.4 with Vit 750 75 K 10 ml Trace (Conc-1Ml/ Dose) 1 ml Sodium Acetate 40 meq Calcium Gluconate 1 gm In Amino Acid 4.25% -D10w 1,000 ml @ 75 mls/ hr IV .BY DURATION [facility] Rx #:[id number] Sodium Acetate 40 meq 150 Calcium Gluconate 1 gm In Amino Acid 4.25%-D10w 1, 000 ml @ 75 mls/hr IV .BY DURATION [facility] Rx#: [id number] Output: Gastric Drainage 150 Urine 1460 1280 690 Oral Regurgitation 250 Other: Voiding Method Indwelling Catheter Indwelling Catheter - Labs CBC & Chem 7: 02/25/19 03:51 02/25/19 03:51 Labs: Abnormal Lab Results - Last 24 Hours (Table) 02/24/19 02/24/19 02/24/19 Range/Units 12:05 16:55 18:34 WBC (3.8-10.6) k/uL RBC (3.80-5.40) m/uL Hgb (11.4-16.0) gm/dL Hct (34.0-46.0) % Plt Count (150-450) k/uL Neutrophils # (1.3-7.7) k/uL Lymphocytes # (1.0-4.8) k/uL Sodium (137-145) mmol/L BUN (7-17) mg/dL Creatinine (0.52-1.04) mg/dL Glucose (74-99) mg/dL POC Glucose (mg/dL) 179 H 137 H 144 H (75-99) mg/dL Alkaline Phosphatase (38-126) U/L Total Protein (6.3-8.2) g/dL Albumin (3.5-5.0) g/dL Urine Appearance (Clear) Urine Protein (Negative) Urine Blood (Negative) Ur Leukocyte Esterase (Negative) Urine RBC (0-5) /hpf Urine WBC (0-5) /hpf Urine WBC Clumps (None) /hpf Urine Bacteria (None) /hpf 02/24/19 02/25/1920 Range/Units 21:11 03:51 03:51 WBC 13.3 H (3.8-10.6) k/uL RBC 2.90 L (3.80-5.40) m/uL Hgb 8.3 L (11.4-16.0) gm/dL Hct 26.5 L (34.0-46.0) % Plt Count 734 H (150-450) k/uL Neutrophils # 10.7 H (1.3-7.7) k/uL Lymphocytes # 0.8 L (1.0-4.8) k/uL Sodium 135 L (137-145) mmol/L BUN 63 H (7-17) mg/dL Creatinine 2.38 H (0.52-1.04) mg/dL Glucose 142 H (74-99) mg/dL POC Glucose (mg/dL) 133 H (75-99) mg/dL Alkaline Phosphatase 225 H (38-126) U/L Total Protein 5.2 L (6.3-8.2) g/dL Albumin 2.4 L (3.5-5.0) g/dL Urine Appearance (Clear) Urine Protein (Negative) Urine Blood (Negative) Ur Leukocyte Esterase (Negative) Urine RBC (0-5) /hpf Urine WBC (0-5) /hpf Urine WBC Clumps (None) /hpf Urine Bacteria (None) /hpf 02/25/19 02/25/19 Range/Units 07:05 08:50 WBC (3.8-10.6) k/uL RBC (3.80-5.40) m/uL Hgb (11.4-16.0) gm/dL Hct (34.0-46.0) % Plt Count (150-450) k/uL Neutrophils # (1.3-7.7) k/uL Lymphocytes # (1.0-4.8) k/uL Sodium (137-145) mmol/L BUN (7-17) mg/dL Creatinine (0.52-1.04) mg/dL Glucose (74-99) mg/dL POC Glucose (mg/dL) 158 H (75-99) mg/dL Alkaline Phosphatase (38-126) U/L Total Protein (6.3-8.2) g/dL Albumin (3.5-5.0) g/dL Urine Appearance Cloudy H (Clear) Urine Protein 1+ H (Negative) Urine Blood Large H (Negative) Ur Leukocyte Esterase Large H (Negative) Urine RBC >182 H (0-5) /hpf Urine WBC >182 H (0-5) /hpf Urine WBC Clumps Many H (None) /hpf Urine Bacteria Occasional H (None) /hpf Assessment and Plan (1) Diverticulitis with obstruction Current Visit: Yes Status: Acute Code(s): K57.92 - DVTRCLI OF INTEST, PART UNSP, W/O PERF OR ABSCESS W/O BLEED SNOMED Code(s): 207949070 (2) Atrial fibrillation with RVR Current Visit: Yes Status: Acute Code(s): I48.91 - UNSPECIFIED ATRIAL FIBRILLATION SNOMED Code(s): 667405553202138 (3) Stage 3 chronic renal impairment associated with type 2 diabetes mellitus Current Visit: Yes Status: Acute Code(s): E11.22 - TYPE 2 DIABETES MELLITUS W DIABETIC CHRONIC KIDNEY DISEASE; N18.3 - CHRONIC KIDNEY DISEASE, STAGE 3 (MODERATE) SNOMED Code(s): 587796910734 (4) Diabetes type 2, uncontrolled Current Visit: Yes Status: Acute Code(s): E11.65 - TYPE 2 DIABETES MELLITUS WITH HYPERGLYCEMIA SNOMED Code(s): 209356099 (5) Leukocytosis Current Visit: Yes Status: Acute Code(s): D72.829 - ELEVATED WHITE BLOOD CELL COUNT, UNSPECIFIED SNOMED Code(s): 137014144 (6) Colostomy status Current Visit: Yes Status: Acute Code(s): Z93.3 - COLOSTOMY STATUS SNOMED Code(s): 198765813
[2019-02-24] MEDS: METOPROLOL TARTRATE 5 MG/5 ML VIAL IVP SCH ×3 (11:38→22:32)
[2019-02-24 12:07] LABS: Glucose,Whole Blood 179 mg/dL (75-99)
--- NOTE | 2019-02-24 13:23 | P.PN ---
Subjective Progress Note Date: 02/24/19 (CT of the abdomen and pelvis reviewed.) Progress note date of service 02/[address] Engel. Patient's conscious alert oriented she knows that she is in [facility] ICU, her Her pulse rate ranging between 123-113 with the underlying paroxysmal atrial fibrillation currently rapid ventricular response versus sinus tachycardia. Her pulse ox 92% with high flow within the ureter. Respiratory rate ranging between 21-9 with the significant fluctuation. WBC 14 presently elevated with a hemoglobin drop to 7.7 and the question is eliquis was held with the question of the fluid collection in the pelvis could be hematoma versus abscess formation and with a hemoglobin drop possibility of transfusion however we will wait for the cardiology opinion. Hematocrit is 25.0 with the reaction platelet count elevation to 88. Sodium 132 and potassium 4.7 her BUN is 63 and creatinine 2.44 blood glucose this morning 197 and the glucose POC 179 this morning and she covered with insulin to scale. His calcium is 8.8 potassium 4.7 magnesium 2.3 Her blood pressure today 10 AM 117/78 with the heart rate of 123. On exam: Patient in ICU. The NG tube has been placed back for suction with the distention of the stomach abdomen. Patient's conscious alert oriented. She denied any significant pain however she already colored with the patch Duragesic, as well as morphine and Narco. HEENT: Neck was supple no JVD no thyromegaly no lymphadenopathy, oropharynx, normal with normal swallowing and she had upper plate dentures. Neck was supple no JVD no thyromegaly no lymphadenopathy trachea midline. Chest lung is radiated bilaterally with elevated right-sided hemidiaphragm. And underlying atelectasis versus pneumonitis by the computed tomography scan on 02/23/2019, patient already on IV antibiotic. The heart: She had tachycardia with the paroxysmal atrial fib followed by the cardiology. The abdomen: She had left colostomy with the stools but there is no much of gas no inflammation of the bag of the colostomy. Patient still distended and tympanitic on percussion with the NG tube in place. There is a pelvic fluid collection and she plans to have interventional aspiration and also send for culture and sensitivity to rule out abscess versus blood, fluid. Computed tomography scan also indicating the left renal atrophy and bilateral hydroureter and hydronephrosis in the right kidney. She has also Murphy catheter in place with questionable position. Extremities: No edema and positive pulses and she has the antithrombotic inflatable stocking. Assessment: Computed tomography scan of the abdomen and pelvis obtained on 02/23/2019 with multiple medical problem. The invasive radiology was consulted for aspiration and the Elliquis has been withheld to clarify the abscess formation and infection versus hematoma or blocked. In regard of the hydronephrosis and hydroureter, we will be monitor by urology which they have been following the patient as well as well as cardiology. Plan we'll continue the current treatment designed by the surgeon and will see him monitoring the fluid will be obtained by the invasive radiology and further treatment depends on the etiology and probable infectious disease to be consulted as well. Objective - Vital Signs Vital signs: Vital Signs Temp 98 F 02/24/19 08:00 Pulse 106 H 02/24/19 12:15 Resp 9 L 02/24/19 10:00 BP 117/78 02/24/19 10:00 Pulse Ox 92 L 02/24/19 10:19 Intake & Output 02/23/19 02/24/19 02/24/19 18:59 06:59 18:59 Intake Total 503.2 491.6 650 Output Total 392 1440 1025 Balance 111.2 -948.4 -375 Weight 76.1 kg 74.3 kg Intake: IV 420 450 350 0.9 Normal saline 420 450 150 Piperacillin-Tazobactam 3 100 .375 gm In Sodium Chloride 0.9% 100 ml @ 25 mls/hr IVPB Q8HR [facility] Rx# :[id number] Sodium Chloride 0.9% 1, 100 000 ml @ 50 mls/hr IV . Q20H [facility] Rx#:[id number] Intake, IV Titration 83.2 41.6 300 Amount Fat Emulsion 20% 250 ml @ 83.2 41.6 20.833 mls/hr IV MoWeFr@ 1300 [facility] Rx#:[id number] Mvi, Adult No.4 with Vit 150 K 10 ml Trace (Conc-1Ml/ Dose) 1 ml Sodium Acetate 40 meq Calcium Gluconate 1 gm In Amino Acid 4.25% -D10w 1,000 ml @ 75 mls/ hr IV .BY DURATION [facility] Rx #:[id number] Sodium Acetate 40 meq 150 Calcium Gluconate 1 gm In Amino Acid 4.25%-D10w 1, 000 ml @ 75 mls/hr IV .BY DURATION [facility] Rx#: [id number] Output: Urine 392 1440 775 Oral Regurgitation 250 Other: Voiding Method Indwelling Catheter Indwelling Catheter Indwelling Catheter - Labs CBC & Chem 7: 02/24/19 04:00 02/24/19 04:00 Labs: Abnormal Lab Results - Last 24 Hours (Table) 02/23/19 02/23/19 02/24/19 Range/Units 17:14 23:31 04:00 WBC (3.8-10.6) k/uL RBC (3.80-5.40) m/uL Hgb (11.4-16.0) gm/dL Hct (34.0-46.0) % MCHC (31.0-37.0) g/dL Plt Count (150-450) k/uL Neutrophils # (1.3-7.7) k/uL Lymphocytes # (1.0-4.8) k/uL Sodium 132 L (137-145) mmol/L BUN 63 H (7-17) mg/dL Creatinine 2.44 H (0.52-1.04) mg/dL Glucose 197 H (74-99) mg/dL POC Glucose (mg/dL) 156 H 165 H (75-99) mg/dL Phosphorus 4.7 H (2.5-4.5) mg/dL Alkaline Phosphatase 221 H (38-126) U/L Total Protein 5.0 L (6.3-8.2) g/dL Albumin 2.3 L (3.5-5.0) g/dL 02/24/19 02/24/19 02/24/19 Range/Units 04:00 06:49 12:05 WBC 14.0 H (3.8-10.6) k/uL RBC 2.69 L (3.80-5.40) m/uL Hgb 7.7 L (11.4-16.0) gm/dL Hct 25.0 L (34.0-46.0) % MCHC 30.8 L (31.0-37.0) g/dL Plt Count 688 H (150-450) k/uL Neutrophils # 11.5 H (1.3-7.7) k/uL Lymphocytes # 0.8 L (1.0-4.8) k/uL Sodium (137-145) mmol/L BUN (7-17) mg/dL Creatinine (0.52-1.04) mg/dL Glucose (74-99) mg/dL POC Glucose (mg/dL) 155 H 179 H (75-99) mg/dL Phosphorus (2.5-4.5) mg/dL Alkaline Phosphatase (38-126) U/L Total Protein (6.3-8.2) g/dL Albumin (3.5-5.0) g/dL
[2019-02-24] MEDS: HYDROcodone/APAP 5-325MG 1 EACH TAB PO PRN (15:45)
[2019-02-24 16:56] LABS: Glucose,Whole Blood 137 mg/dL (75-99)
[2019-02-24] MEDS: MORPHINE SULFATE 4 MG/ML SYRINGE IVP PRN (17:14)
[2019-02-24 18:35] LABS: Glucose,Whole Blood 144 mg/dL (75-99)
[2019-02-24] MEDS: HEPARIN SOD,PORK IN 0.45% NACL 25,000 UNIT in 0.45% NACL 1 250ML.BAG IV SCH (19:50)
[2019-02-24 21:12] LABS: Glucose,Whole Blood 133 mg/dL (75-99)
[2019-02-24] MEDS: ATORVASTATIN 10 MG TAB PO SCH (22:10)
[2019-02-24] MEDS: DULoxetine HCL 60 MG CAPSULE.DR PO SCH (22:11)
--- NOTE | 2019-02-24 23:52 | P.CONS ---
History of Present Illness - Reason for Consult Consult date: 02/24/19 abdominal abscess Requesting physician: Soham Miller - Chief Complaint abdominal pain x few days - History of Present Illness Patient is 83-year-old female admitted to the hospital on 02/07/2019 with abdominal pain patient diagnosed with sigmoid diverticulitis with perforation patient status post exploratory laparotomy with extensive lysis of addition sigmoid colectomy and end colostomy on February 12, [address] patient did [address] a [address] of abdominal pelvis completed last evening that has been suggestive of large discrete fluid collection in the pelvis between the rectum and the bladder which was new compared to previous exam and could be an abscess for which inf ectious was consulted for further recommendation about antibiotic therapy patient at the time my evaluation today has been afebrile and the patient has been afebrile throughout most of her hospital stay lost a brother recorded has been 100.1 on 02/16/2019 patient did have elevated white count highest reading was 16.2 as of yesterday was down to 14,000 today and the patient is currently being treated with the Zosyn patient currently denies having any fever or chills been complaining of some weakness no headache no URI symptoms no chest pain no shortness of increasing cough patient abdominal pain is currently controlled with the pain medication intensity is about 4 to 5-10" and no radiation patient denies urinary symptoms Review of Systems Positive point has been mentioned in HPI rest of the systems are negative Past Medical History Past Medical History: Hyperlipidemia, Hypertension, Osteoarthritis (OA), Renal Disease Additional Past Medical History / Comment(s): one functioning kidney, cervical ca, urethral ca, right hip pain History of Any Multi-Drug Resistant Organisms: None Reported Past Surgical History: Appendectomy, Bowel Resection Additional Past Surgical History / Comment(s): bowel resection, kidney tumor removed Past Psychological History: No Psychological Hx Reported Smoking Status: Never smoker Past Alcohol Use History: None Reported Past Drug Use History: None Reported Medications and Allergies Home Medications Medication Instructions Recorded Confirmed Type Atorvastatin [Lipitor] 10 mg PO Q48H 02/07/19 02/09/19 History Cholecalciferol [Vitamin D3 (25 1,000 unit PO DAILY 02/07/19 02/07/19 History Mcg = 1000 Iu)] DULoxetine HCL [Cymbalta] 60 mg PO HS 02/07/19 02/09/19 History Diclofenac Sodium Gel [Voltaren 1 applic TOPICAL DAILY PRN 02/07/19 02/07/19 History Gel] Sodium Bicarbonate 325 mg PO BID 02/07/19 02/07/19 History amLODIPine [Norvasc] 5 mg PO BID 02/07/19 02/09/19 History cloNIDine HCL [Catapres] 0.1 mg PO BID 02/07/19 02/09/19 History hydrALAZINE HCL 50 mg PO BID-W/MEALS 02/07/19 02/09/19 History Azithromycin [Zithromax Z-pack] See Taper PO DIRECTED 02/09/19 02/09/19 History Metoprolol Tartrate 25 mg PO BID 02/09/19 02/09/19 History Polyethylene Glycol 3350 [Miralax] 17 gm PO DAILY 02/09/19 02/09/19 History Allergies Allergy/AdvReac Type Severity Reaction Status Date / Time No Known Allergies Allergy Verified 02/12/19 11:01 Physical Exam Vitals: Vital Signs Temp Pulse Resp BP Pulse Ox 02/24/19 22:00 107 H 15 106/78 91 L 02/24/19 21:00 120 H 11 L 98/71 91 L 02/24/19 20:00 98.2 F 116 H 18 107/82 90 L 02/24/19 19:05 101 H 20 02/24/19 19:00 115 H 12 118/89 97 02/24/19 18:55 96 18 02/24/19 18:00 109 H 18 116/80 88 L 02/24/19 17:01 130 H 30 H 138/75 90 L 02/24/19 16:00 98.4 F 133 H 19 132/98 95 02/24/19 15:44 117 H 21 02/24/19 15:30 133 H 28 H 02/24/19 15:00 135 H 23 115/84 92 L 02/24/19 14:00 116 H 19 120/79 92 L 02/24/19 13:00 128 H 13 118/74 92 L 02/24/19 12:15 106 H 02/24/19 12:00 98.4 F 93 21 121/74 92 L 02/24/19 11:00 103 H 16 140/79 93 L 02/24/19 10:35 110 H 02/24/19 10:19 113 H 92 L 02/24/19 10:00 123 H 9 L 117/78 92 L 02/24/19 09:00 120 H 21 114/68 91 L 02/24/19 08:00 98 F 86 16 109/71 91 L 02/24/19 07:00 89 10 L 100/58 92 L 02/24/19 06:00 69 13 100/58 94 L 02/24/19 05:00 70 14 99/56 94 L 02/24/19 04:00 67 12 92/55 94 L 02/24/19 03:00 98.5 F 83 12 103/56 94 L 02/24/19 02:00 76 14 120/70 94 L 02/24/19 01:00 99.5 F 84 12 131/72 97 02/24/19 00:00 116 H 14 141/83 95 Intake and Output 02/24/19 02/24/19 02/25/19 14:59 22:59 06:59 Intake Total 1100 1000 Output Total 1420 700 Balance -320 300 Intake: IV 500 625 0.9 Normal saline 150 PPN 225 Piperacillin-Tazobactam 3 100 .375 gm In Sodium Chloride 0.9% 100 ml @ 25 mls/hr IVPB Q8HR [facility] Rx# :[id number] Sodium Chloride 0.9% 1, 250 400 000 ml @ 50 mls/hr IV . Q20H [facility] Rx#:[id number] Intake, IV Titration 600 375 Amount Mvi, Adult No.4 with Vit 450 375 K 10 ml Trace (Conc-1Ml/ Dose) 1 ml Sodium Acetate 40 meq Calcium Gluconate 1 gm In Amino Acid 4.25% -D10w 1,000 ml @ 75 mls/ hr IV .BY DURATION [facility] Rx #:[id number] Sodium Acetate 40 meq 150 Calcium Gluconate 1 gm In Amino Acid 4.25%-D10w 1, 000 ml @ 75 mls/hr IV .BY DURATION [facility] Rx#: [id number] Output: Gastric Drainage 50 100 Urine 1120 600 Oral Regurgitation 250 Other: Voiding Method Indwelling Catheter Indwelling Catheter GENERAL DESCRIPTION: Elderly female lying in bed, no distress. No tachypnea or accessory muscle of respiration use. HEENT: Shows Pallor , no scleral icterus. Oral mucous membrane is dry. NECK: Trachea central, no thyromegaly. LUNGS: Unlabored breathing. Clear to auscultation anteriorly. No wheeze or crackle. HEART: S1, S2, regular rate and rhythm. ABDOMEN: Soft, mild distention but no significant tenderness , guarding or ri gidity EXTREMITIES: No edema of feet. SKIN: No rash, no masses palpable. NEUROLOGICAL: The patient is awake, alert, oriented x3, mood and affect normal. Results CBC & Chem 7: 02/24/19 04:00 02/24/19 04:00 Labs: Abnormal Lab Results - Last 24 Hours (Table) 02/24/19 02/24/19 02/24/19 Range/Units 04:00 04:00 06:49 WBC 14.0 H (3.8-10.6) k/uL RBC 2.69 L (3.80-5.40) m/uL Hgb 7.7 L (11.4-16.0) gm/dL Hct 25.0 L (34.0-46.0) % MCHC 30.8 L (31.0-37.0) g/dL Plt Count 688 H (150-450) k/uL Neutrophils # 11.5 H (1.3-7.7) k/uL Lymphocytes # 0.8 L (1.0-4.8) k/uL Sodium 132 L (137-145) mmol/L BUN 63 H (7-17) mg/dL Creatinine 2.44 H (0.52-1.04) mg/dL Glucose 197 H (74-99) mg/dL POC Glucose (mg/dL) 155 H (75-99) mg/dL Phosphorus 4.7 H (2.5-4.5) mg/dL Alkaline Phosphatase 221 H (38-126) U/L Total Protein 5.0 L (6.3-8.2) g/dL Albumin 2.3 L (3.5-5.0) g/dL 02/24/19 02/24/19 02/24/19 Range/Units 12:05 16:55 18:34 WBC (3.8-10.6) k/uL RBC (3.80-5.40) m/uL Hgb (11.4-16.0) gm/dL Hct (34.0-46.0) % MCHC (31.0-37.0) g/dL Plt Count (150-450) k/uL Neutrophils # (1.3-7.7) k/uL Lymphocytes # (1.0-4.8) k/uL Sodium (137-145) mmol/L BUN (7-17) mg/dL Creatinine (0.52-1.04) mg/dL Glucose (74-99) mg/dL POC Glucose (mg/dL) 179 H 137 H 144 H (75-99) mg/dL Phosphorus (2.5-4.5) mg/dL Alkaline Phosphatase (38-126) U/L Total Protein (6.3-8.2) g/dL Albumin (3.5-5.0) g/dL 02/24/19 Range/Units 21:11 WBC (3.8-10.6) k/uL RBC (3.80-5.40) m/uL Hgb (11.4-16.0) gm/dL Hct (34.0-46.0) % MCHC (31.0-37.0) g/dL Plt Count (150-450) k/uL Neutrophils # (1.3-7.7) k/uL Lymphocytes # (1.0-4.8) k/uL Sodium (137-145) mmol/L BUN (7-17) mg/dL Creatinine (0.52-1.04) mg/dL Glucose (74-99) mg/dL POC Glucose (mg/dL) 133 H (75-99) mg/dL Phosphorus (2.5-4.5) mg/dL Alkaline Phosphatase (38-126) U/L Total Protein (6.3-8.2) g/dL Albumin (3.5-5.0) g/dL Assessment and Plan Assessment: patient who is status post extensive surgery with lysis of adhesion sigmoid colectomy and diverting colostomy in this patient noticed to have elevated white count yesterday a CT abdominal pelvis has been suspicious for possible abscess likely from enteric gram-negative both aerobes and anaerobes awaiting interventional radiology drainage (1) Abdominal abscess Current Visit: Yes Status: Acute Code(s): HCY5010 - SNOMED Code(s): 32769400 Plan: 1-patient will benefit from drainage of this fluid collection which will be sent for culture both aerobic and anaerobic that would guide further antibiotic therapy 2-for now the patient continue on Zosyn 3.375 g every 8 hours We will follow on clinical condition and cultures to further adjust medication if needed Thank you for this consultation we will follow the patient along with you Time with Patient: Greater than 30
[2019-02-25] MEDS: MORPHINE SULFATE 4 MG/ML SYRINGE IVP PRN (02:45)
[2019-02-25 04:52] LABS: Prothrombin Time 10.3 sec (9.0-12.0)
[2019-02-25 04:54] LABS: Basophils % (A) 0 %; Eosinophils # (A) 0.6 k/uL (0-0.7); Eosinophils % (A) 5 %; HCT 26.5 % (34.0-46.0); HGB 8.3 gm/dL (11.4-16.0); Lymphocytes # (A) 0.8 k/uL (1.0-4.8); Lymphocytes % (A) 6 %; MCH 28.5 pg (25.0-35.0); MCHC 31.2 g/dL (31.0-37.0); MCV 91.4 fL (80.0-100.0); Mean Platelet Volume 8.2; Monocytes # (A) 0.7 k/uL (0-1.0); Monocytes % (A) 5 %; Neutrophils # (A) 10.7 k/uL (1.3-7.7); Neutrophils % (A) 80 %; Platelet Count 734 k/uL (150-450); RDW 14.6 % (11.5-15.5); WBC 13.3 k/uL (3.8-10.6)
[2019-02-25 05:01] LABS: Albumin 2.4 g/dL (3.5-5.0); Calcium 9.1 mg/dL (8.4-10.2); Magnesium 2.2 mg/dL (1.6-2.3); Phosphorus 4.5 mg/dL (2.5-4.5); Potassium 4.6 mmol/L (3.5-5.1); Total Bilirubin 0.6 mg/dL (0.2-1.3); Total Protein 5.2 g/dL (6.3-8.2)
[2019-02-25 07:06] LABS: Glucose,Whole Blood 158 mg/dL (75-99)
[2019-02-25] MEDS: SODIUM CHLORIDE 0.9% 1,000 ML IV SCH (07:14)
[2019-02-25] MEDS: INSULIN ASPART (NovoLOG) 100 UNIT/ML VIAL SQ SCH ×4 (07:15→21:40)
[2019-02-25] MEDS: IPRATROPIUM-ALBUTEROL 3 ML NEB INHALATION SCH ×4 (08:16→19:34)
[2019-02-25] MEDS: BUDESONIDE 0.5 MG/2 ML NEBU INHALATION SCH ×2 (08:16→19:34)
[2019-02-25] MEDS: METOPROLOL TARTRATE 50 MG TAB PO SCH ×3 (08:31→21:43)
[2019-02-25] MEDS: DILTIAZEM ORAL 60 MG TAB PO SCH ×2 (08:31→16:59)
[2019-02-25] MEDS: METOPROLOL TARTRATE 5 MG/5 ML VIAL IVP SCH ×3 (08:43→21:46)
[2019-02-25] MEDS: PIPERACILLIN-TAZOBACTAM 3.375 GM in SODIUM CHLORIDE 0.9% 100 ML IVPB SCH ×2 (08:44→21:46)
[2019-02-25 09:25] LABS: Appearance,Urine Cloudy (Clear); Bacteria,Urine Occasional /hpf; Bilirubin,Urine Negative (Negative); Blood,Urine Large (Negative); Color,Urine Red; Glucose,Urine (UA) Negative (Negative); Ketones,Urine Negative (Negative); Leukocyte Esterase,Urine Large (Negative); Nitrite,Urine Negative (Negative); PH, Urine 5.5 (5.0-8.0); Protein,Urine 1+ (Negative); RBC,Urine >182 /hpf (0-5); Specific Gravity,Urine 1.016 (1.001-1.035); Urobilinogen,Urine <2.0 mg/dL (<2.0); WBC,Urine >182 /hpf (0-5)
--- NOTE | 2019-02-25 10:52 | P.CON ---
Consult Note - . Consult date: 02/25/19 Assessment/Plan:: We are asked to see this patient again because of hematuria as well as hydronephrosis. 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 The hydronephrosis on the right is chronic. She performs CIC due to her neurogenic bladder. She recently had a repeat computed tomography scan. Her bladder is full and her hydronephrosis on the right side appeared to be slightly worse than previous computed tomography scan. I suspect the mild worsening of her hydronephrosis was due to a full bladder. 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 His lungs a catheter is flowing freely and irrigated freely would not further intervening. They're rarely is a focal point of bleeding in these situations. We'll follow with you.
--- NOTE | 2019-02-25 11:02 | P.PN ---
Subjective Progress Note Date: 02/25/19 Principal diagnosis: Acute bowel obstruction status post laparotomy with extensive lysis of adhesions and sigmoid colectomy and end colostomy. The patient is seen today 02/25/2019 in follow-up in the intensive care unit. She is currently awake and alert in no acute distress. She is still requiring 10 L high flow nasal cannula to maintain O2 saturations in the 90s. She is receiving PPN at 75 ML's per hour. 0.9 normal saline at 50 MLS per hour. She denies any worsening shortness of breath, cough or congestion. CT of abdomen and pelvis on 02/23/2019 revealed a large discrete fluid collection in the pelvis between the rectum and the urinary bladder that could be related to an abscess. Interventional radiology has been consulted for possible drainage of this abscess, however patient has been on Eliquis, and IR will not be able to proceed with the procedure for about 48 hours. White count 13.3. Hemoglobin 8.3. Creatinine 2.38. Repeat urinalysis reveals bacteria with large leukocytes. Previous UTI with Klebsiella pneumoniae and E. coli. Remains on Zosyn. She is currently afebrile. Atrial fibrillation with a heart rate in the 110s. Blood pressure stable. Objective - Vital Signs Vital signs: Vital Signs Temp 98.4 F 02/25/19 08:00 Pulse 88 02/25/19 10:00 Resp 14 02/25/19 10:00 BP 122/78 02/25/19 10:00 Pulse Ox 91 L 02/25/19 10:00 Intake & Output 02/24/19 02/25/19 02/25/19 18:59 06:59 18:59 Intake Total 1600 1400 550 Output Total 1860 1280 690 Balance -260 120 -140 Weight 74.5 kg Intake: IV 700 1325 550 0.9 Normal saline 150 PPN 825 300 Piperacillin-Tazobactam 3 100 50 .375 gm In Sodium Chloride 0.9% 100 ml @ 25 mls/hr IVPB Q12HR [facility] Rx #:[id number] Piperacillin-Tazobactam 3 100 .375 gm In Sodium Chloride 0.9% 100 ml @ 25 mls/hr IVPB Q8HR [facility] Rx# :[id number] Sodium Chloride 0.9% 1, 450 400 200 000 ml @ 50 mls/hr IV . Q20H [facility] Rx#:[id number] Intake, IV Titration 900 75 Amount Mvi, Adult No.4 with Vit 750 75 K 10 ml Trace (Conc-1Ml/ Dose) 1 ml Sodium Acetate 40 meq Calcium Gluconate 1 gm In Amino Acid 4.25% -D10w 1,000 ml @ 75 mls/ hr IV .BY DURATION [facility] Rx #:[id number] Sodium Acetate 40 meq 150 Calcium Gluconate 1 gm In Amino Acid 4.25%-D10w 1, 000 ml @ 75 mls/hr IV .BY DURATION [facility] Rx#: [id number] Output: Gastric Drainage 150 Urine 1460 1280 690 Oral Regurgitation 250 Other: Voiding Method Indwelling Catheter Indwelling Catheter - Exam GENERAL EXAM: Alert, pleasant, 83-year-old female patient, she is on 10 L per h igh flow nasal cannula, and her pulse ox is 96%, comfortable in no apparent distress. HEAD: Normocephalic/atraumatic. EYES: Normal reaction of pupils, equal size. Conjunctiva pink, sclera white. NOSE: Clear with pink turbinates. NG-tube is in place to low intermittent suction THROAT: No erythema or exudates. NECK: No masses, no JVD, no thyroid enlargement, no adenopathy. CHEST: No chest wall deformity. Symmetrical expansion. LUNGS: Equal air entry with mild rhonchi, diminished breath sounds CVS: Irregular rate and rhythm, normal S1 and S2, no gallops, no murmurs, no rubs ABDOMEN: Soft, nontender. No hepatosplenomegaly, normal bowel sounds, no guarding or rigidity. Midline incision with maggy intact, colostomy with liquid yellow output EXTREMITIES: No clubbing, no edema, no cyanosis, 2+ pulses and upper and lower extremities. MUSCULOSKELETAL: Muscle strength and tone normal. SPINE: No scoliosis or deformity SKIN: No rashes CENTRAL NERVOUS SYSTEM: No focal deficits, tone is normal in all 4 extremities. PSYCHIATRIC: Alert and oriented -2. Appropriate affect. Intact judgment and insight. - Labs CBC & Chem 7: 02/25/19 03:51 02/25/19 03:51 Labs: Abnormal Lab Results - Last 24 Hours (Table) 02/24/19 02/24/19 02/24/19 Range/Units 12:05 16:55 18:34 WBC (3.8-10.6) k/uL RBC (3.80-5.40) m/uL Hgb (11.4-16.0) gm/dL Hct (34.0-46.0) % Plt Count (150-450) k/uL Neutrophils # (1.3-7.7) k/uL Lymphocytes # (1.0-4.8) k/uL Sodium (137-145) mmol/L BUN (7-17) mg/dL Creatinine (0.52-1.04) mg/dL Glucose (74-99) mg/dL POC Glucose (mg/dL) 179 H 137 H 144 H (75-99) mg/dL Alkaline Phosphatase (38-126) U/L Total Protein (6.3-8.2) g/dL Albumin (3.5-5.0) g/dL Urine Appearance (Clear) Urine Protein (Negative) Urine Blood (Negative) Ur Leukocyte Esterase (Negative) Urine RBC (0-5) /hpf Urine WBC (0-5) /hpf Urine WBC Clumps (None) /hpf Urine Bacteria (None) /hpf 02/24/19 02/25/19 02/25/19 Range/Units 21:11 03:51 03:51 WBC 13.3 H (3.8-10.6) k/uL RBC 2.90 L (3.80-5.40) m/uL Hgb 8.3 L (11.4-16.0) gm/dL Hct 26.5 L (34.0-46.0) % Plt Count 734 H (150-450) k/uL Neutrophils # 10.7 H (1.3-7.7) k/uL Lymphocytes # 0.8 L (1.0-4.8) k/uL Sodium 135 L (137-145) mmol/L BUN 63 H (7-17) mg/dL Creatinine 2.38 H (0.52-1.04) mg/dL Glucose 142 H (74-99) mg/dL POC Glucose (mg/dL) 133 H (75-99) mg/dL Alkaline Phosphatase 225 H (38-126) U/L Total Protein 5.2 L (6.3-8.2) g/dL Albumin 2.4 L (3.5-5.0) g/dL Urine Appearance (Clear) Urine Protein (Negative) Urine Blood (Negative) Ur Leukocyte Esterase (Negative) Urine RBC (0-5) /hpf Urine WBC (0-5) /hpf Urine WBC Clumps (None) /hpf Urine Bacteria (None) /hpf 02/25/19 02/25/19 Range/Units 07:05 08:50 WBC (3.8-10.6) k/uL RBC (3.80-5.40) m/uL Hgb (11.4-16.0) gm/dL Hct (34.0-46.0) % Plt Count (150-450) k/uL Neutrophils # (1.3-7.7) k/uL Lymphocytes # (1.0-4.8) k/uL Sodium (137-145) mmol/L BUN (7-17) mg/dL Creatinine (0.52-1.04) mg/dL Glucose (74-99) mg/dL POC Glucose (mg/dL) 158 H (75-99) mg/dL Alkaline Phosphatase (38-126) U/L Total Protein (6.3-8.2) g/dL Albumin (3.5-5.0) g/dL Urine Appearance Cloudy H (Clear) Urine Protein 1+ H (Negative) Urine Blood Large H (Negative) Ur Leukocyte Esterase Large H (Negative) Urine RBC >182 H (0-5) /hpf Urine WBC >182 H (0-5) /hpf Urine WBC Clumps Many H (None) /hpf Urine Bacteria Occasional H (None) /hpf Assessment and Plan Assessment: 1 Abdominal discomfort with constipation and colon obstruction status post posterior laparotomy, extensive lysis of adhesions, sigmoid colectomy, end colostomy. 2 Large fluid collection in the pelvis could be related to an abscess, interventional radiology has been consulted for drainage 3 Acute hypoxic respiratory failure in the immediate postoperative period requiring BiPAP support. Currently on 6 L high flow nasal cannula. Chest x-ray pending. 4 Atrial fibrillation with a rapid ventricular response initially on a heparin drip. Currently on hold due to surgery. Currently in sinus rhythm. The plan is for initiation of Eliquis once cleared surgically. 5 Urinary tract infection secondary to Klebsiella pneumoniae and E. coli 6 Lifelong nonsmoker. 7 Hypertension. 8 Hyperlipidemia. 9 Acute on chronic renal failure. Current creatinine 2.38. Plan: The patient was seen and evaluated by Dr. Llanes. We'll continue to titrate down the FiO2 as tolerated. Switch the PPN to TPN as the patient has a PICC line in place. Continue to encourage use of the incentive spirometer and cough and deep breathing exercises. Await IR plans for drainage of the abdominal abscess/fluid collection. Keep her here in the intensive care unit. We'll continue to follow make further recommendations based on her clinical status. I, the cosigning physician, performed a history & physical examination of the patient. Lungs sounds are clear anteriorly, crackles in the posterior bases. Maintaining good O2 saturations in the 90s on 10 L high flow nasal cannula. I discussed the assessment and plan of care with my nurse practitioner, Jenelle Heaton. I attest to the above consultation as dictated by her.
--- NOTE | 2019-02-25 11:18 | P.PN ---
Subjective Progress Note Date: 02/25/19 Seen and examined for the follow-up of acute kidney injury. Family at bedside. Objective - Vital Signs Vital signs: Vital Signs Temp 98.4 F 02/25/19 08:00 Pulse 100 02/25/19 11:11 Resp 15 02/25/19 11:00 BP 112/93 02/25/19 11:00 Pulse Ox 92 L 02/25/19 11:00 Intake & Output 02/24/19 02/25/19 02/25/19 18:59 06:59 18:59 Intake Total 1600 1400 550 Output Total 1860 1280 690 Balance -260 120 -140 Weight 74.5 kg Intake: IV 700 1325 550 0.9 Normal saline 150 PPN 825 300 Piperacillin-Tazobactam 3 100 50 .375 gm In Sodium Chloride 0.9% 100 ml @ 25 mls/hr IVPB Q12HR [facility] Rx #:[id number] Piperacillin-Tazobactam 3 100 .375 gm In Sodium Chloride 0.9% 100 ml @ 25 mls/hr IVPB Q8HR [facility] Rx# :[id number] Sodium Chloride 0.9% 1, 450 400 200 000 ml @ 50 mls/hr IV . Q20H [facility] Rx#:[id number] Intake, IV Titration 900 75 Amount Mvi, Adult No.4 with Vit 750 75 K 10 ml Trace (Conc-1Ml/ Dose) 1 ml Sodium Acetate 40 meq Calcium Gluconate 1 gm In Amino Acid 4.25% -D10w 1,000 ml @ 75 mls/ hr IV .BY DURATION [facility] Rx #:[id number] Sodium Acetate 40 meq 150 Calcium Gluconate 1 gm In Amino Acid 4.25%-D10w 1, 000 ml @ 75 mls/hr IV .BY DURATION [facility] Rx#: [id number] Output: Gastric Drainage 150 Urine 1460 1280 690 Oral Regurgitation 250 Other: Voiding Method Indwelling Catheter Indwelling Catheter - Exam No acute distress S1-S2 heard Lungs clear No edema - Labs CBC & Chem 7: 02/25/19 03:51 02/25/19 03:51 Labs: Abnormal Lab Results - Last 24 Hours (Table) 02/24/19 02/24/19 02/24/19 Range/Units 12:05 16:55 18:34 WBC (3.8-10.6) k/uL RBC (3.80-5.40) m/uL Hgb (11.4-16.0) gm/dL Hct (34.0-46.0) % Plt Count (150-450) k/uL Neutrophils # (1.3-7.7) k/uL Lymphocytes # (1.0-4.8) k/uL Sodium (137-145) mmol/L BUN (7-17) mg/dL Creatinine (0.52-1.04) mg/dL Glucose (74-99) mg/dL POC Glucose (mg/dL) 179 H 137 H 144 H (75-99) mg/dL Alkaline Phosphatase (38-126) U/L Total Protein (6.3-8.2) g/dL Albumin (3.5-5.0) g/dL Urine Appearance (Clear) Urine Protein (Negative) Urine Blood (Negative) Ur Leukocyte Esterase (Negative) Urine RBC (0-5) /hpf Urine WBC (0-5) /hpf Urine WBC Clumps (None) /hpf Urine Bacteria (None) /hpf 02/24/19 02/25/19 02/25/19 Range/Units 21:11 03:51 03:51 WBC 13.3 H (3.8-10.6) k/uL RBC 2.90 L (3.80-5.40) m/uL Hgb 8.3 L (11.4-16.0) gm/dL Hct 26.5 L (34.0-46.0) % Plt Count 734 H (150-450) k/uL Neutrophils # 10.7 H (1.3-7.7) k/uL Lymphocytes # 0.8 L (1.0-4.8) k/uL Sodium 135 L (137-145) mmol/L BUN 63 H (7-17) mg/dL Creatinine 2.38 H (0.52-1.04) mg/dL Glucose 142 H (74-99) mg/dL POC Glucose (mg/dL) 133 H (75-99) mg/dL Alkaline Phosphatase 225 H (38-126) U/L Total Protein 5.2 L (6.3-8.2) g/dL Albumin 2.4 L (3.5-5.0) g/dL Urine Appearance (Clear) Urine Protein (Negative) Urine Blood (Negative) Ur Leukocyte Esterase (Negative) Urine RBC (0-5) /hpf Urine WBC (0-5) /hpf Urine WBC Clumps (None) /hpf Urine Bacteria (None) /hpf 02/25/19 02/25/19 Range/Units 07:05 08:50 WBC (3.8-10.6) k/uL RBC (3.80-5.40) m/uL Hgb (11.4-16.0) gm/dL Hct (34.0-46.0) % Plt Count (150-450) k/uL Neutrophils # (1.3-7.7) k/uL Lymphocytes # (1.0-4.8) k/uL Sodium (137-145) mmol/L BUN (7-17) mg/dL Creatinine (0.52-1.04) mg/dL Glucose (74-99) mg/dL POC Glucose (mg/dL) 158 H (75-99) mg/dL Alkaline Phosphatase (38-126) U/L Total Protein (6.3-8.2) g/dL Albumin (3.5-5.0) g/dL Urine Appearance Cloudy H (Clear) Urine Protein 1+ H (Negative) Urine Blood Large H (Negative) Ur Leukocyte Esterase Large H (Negative) Urine RBC >182 H (0-5) /hpf Urine WBC >182 H (0-5) /hpf Urine WBC Clumps Many H (None) /hpf Urine Bacteria Occasional H (None) /hpf Assessment and Plan Assessment: #1 acute kidney injury secondary to prerenal process and also component of hypotension. Creeping stable. #2 CK D stage IV with a baseline creatinine of 1.7-1.9 MG per DL. #3 status post exploratory laparotomy with sigmoid colectomy currently on TPN. #4 neurogenic bladder, no has Murphy #5 hyponatremia. #6 A. fib on Cardizem Plan: #1 creatinine stable, continue with IV fluids. #2 avoid nephrotoxic agents and hypotensive episodes.
[2019-02-25 11:42] LABS: Glucose,Whole Blood 138 mg/dL (75-99)
--- NOTE | 2019-02-25 12:24 | P.PN ---
Subjective Patient is resting comfortably in bed. Her atrial fibrillation persists with a ventricular rate between 100 and 120 beats a minute She does have an NG tube but she was started on oral metoprolol 50 mg 3 times a day She denies any chest discomfort no undue shortness of breath Blood pressure 112/93 mmHg respirations 15-16 pulse rates 100 229 beats minute Breath sounds are reduced bilaterally with some crackles at the bases S1 and S2 irregular no murmurs Impression Patient status post abdominal surgery A. fib with RVR Chest started back on by mouth metoprolol I discussed this with her nurse and recommended that of a heart rates increased beyond 130 bpm then IV metoprolol 5 mg every 8 hours when necessary should be employed Is quite likely that she will not absorb by mouth metoprolol as well as this time and she may need IV metoprolol Objective - Vital Signs Vital signs: Vital Signs Temp 99.1 F 02/25/19 11:00 Pulse 102 H 02/25/19 11:20 Resp 15 02/25/19 11:00 BP 112/93 02/25/19 11:00 Pulse Ox 92 L 02/25/19 11:00 Intake & Output 02/24/19 02/25/19 02/25/19 18:59 06:59 18:59 Intake Total 1600 1400 550 Output Total 1860 1280 690 Balance -260 120 -140 Weight 74.5 kg Intake: IV 700 1325 550 0.9 Normal saline 150 PPN 825 300 Piperacillin-Tazobactam 3 100 50 .375 gm In Sodium Chloride 0.9% 100 ml @ 25 mls/hr IVPB Q12HR [facility] Rx #:[id number] Piperacillin-Tazobactam 3 100 .375 gm In Sodium Chloride 0.9% 100 ml @ 25 mls/hr IVPB Q8HR [facility] Rx# :[id number] Sodium Chloride 0.9% 1, 450 400 200 000 ml @ 50 mls/hr IV . Q20H [facility] Rx#:[id number] Intake, IV Titration 900 75 Amount Mvi, Adult No.4 with Vit 750 75 K 10 ml Trace (Conc-1Ml/ Dose) 1 ml Sodium Acetate 40 meq Calcium Gluconate 1 gm In Amino Acid 4.25% -D10w 1,000 ml @ 75 mls/ hr IV .BY DURATION [facility] Rx #:[id number] Sodium Acetate 40 meq 150 Calcium Gluconate 1 gm In Amino Acid 4.25%-D10w 1, 000 ml @ 75 mls/hr IV .BY DURATION [facility] Rx#: [id number] Output: Gastric Drainage 150 Urine 1460 1280 690 Oral Regurgitation 250 Other: Voiding Method Indwelling Catheter Indwelling Catheter - Labs CBC & Chem 7: 02/25/19 03:51 02/25/19 03:51 Labs: Abnormal Lab Results - Last 24 Hours (Table) 02/24/19 02/24/19 02/24/19 Range/Units 16:55 18:34 21:11 WBC (3.8-10.6) k/uL RBC (3.80-5.40) m/uL Hgb (11.4-16.0) gm/dL Hct (34.0-46.0) % Plt Count (150-450) k/uL Neutrophils # (1.3-7.7) k/uL Lymphocytes # (1.0-4.8) k/uL Sodium (137-145) mmol/L BUN (7-17) mg/dL Creatinine (0.52-1.04) mg/dL Glucose (74-99) mg/dL POC Glucose (mg/dL) 137 H 144 H 133 H (75-99) mg/dL Alkaline Phosphatase (38-126) U/L Total Protein (6.3-8.2) g/dL Albumin (3.5-5.0) g/dL Urine Appearance (Clear) Urine Protein (Negative) Urine Blood (Negative) Ur Leukocyte Esterase (Negative) Urine RBC (0-5) /hpf Urine WBC (0-5) /hpf Urine WBC Clumps (None) /hpf Urine Bacteria (None) /hpf 02/25/19 02/25/19 02/25/19 Range/Units 03:51 03:51 07:05 WBC 13.3 H (3.8-10.6) k/uL RBC 2.90 L (3.80-5.40) m/uL Hgb 8.3 L (11.4-16.0) gm/dL Hct 26.5 L (34.0-46.0) % Plt Count 734 H (150-450) k/uL Neutrophils # 10.7 H (1.3-7.7) k/uL Lymphocytes # 0.8 L (1.0-4.8) k/uL Sodium 135 L (137-145) mmol/L BUN 63 H (7-17) mg/dL Creatinine 2.38 H (0.52-1.04) mg/dL Glucose 142 H (74-99) mg/dL POC Glucose (mg/dL) 158 H (75-99) mg/dL Alkaline Phosphatase 225 H (38-126) U/L Total Protein 5.2 L (6.3-8.2) g/dL Albumin 2.4 L (3.5-5.0) g/dL Urine Appearance (Clear) Urine Protein (Negative) Urine Blood (Negative) Ur Leukocyte Esterase (Negative) Urine RBC (0-5) /hpf Urine WBC (0-5) /hpf Urine WBC Clumps (None) /hpf Urine Bacteria (None) /hpf 02/25/19 02/25/19 Range/Units 08:50 11:41 WBC (3.8-10.6) k/uL RBC (3.80-5.40) m/uL Hgb (11.4-16.0) gm/dL Hct (34.0-46.0) % Plt Count (150-450) k/uL Neutrophils # (1.3-7.7) k/uL Lymphocytes # (1.0-4.8) k/uL Sodium (137-145) mmol/L BUN (7-17) mg/dL Creatinine (0.52-1.04) mg/dL Glucose (74-99) mg/dL POC Glucose (mg/dL) 138 H (75-99) mg/dL Alkaline Phosphatase (38-126) U/L Total Protein (6.3-8.2) g/dL Albumin (3.5-5.0) g/dL Urine Appearance Cloudy H (Clear) Urine Protein 1+ H (Negative) Urine Blood Large H (Negative) Ur Leukocyte Esterase Large H (Negative) Urine RBC >182 H (0-5) /hpf Urine WBC >182 H (0-5) /hpf Urine WBC Clumps Many H (None) /hpf Urine Bacteria Occasional H (None) /hpf
[2019-02-25] MEDS: DRONABINOL 2.5 MG CAP PO SCH ×2 (13:04→17:00)
[2019-02-25] MEDS: HYDROcodone/APAP 5-325MG 1 EACH TAB PO PRN (13:20)
[2019-02-25] MEDS: FAT EMULSION 20% 250 ML IV SCH (13:58)
--- NOTE | 2019-02-25 14:59 | P.PN ---
Subjective Progress Note Date: 02/25/19 CHIEF COMPLAINT: Colon obstruction due to diverticulitis HISTORY OF PRESENT ILLNESS: The patient is a 83-year-old female status post laparotomy with sigmoid colectomy and end colostomy due to colon obstruction from diverticulitis. She had a CT of the abdomen and pelvis yesterday. No reports of fevers or chills in the last 24 hours. No reports of abdominal pain. She has gross hematuria. She has no output from her NGT. Discussion with nurse includes now flushing box catheter for clots. ROS: No reports of nausea and vomiting. No fevers or chills. No new chest pain. She wears dentures. She remains in A. fib with rapid ventricular response PHYSICAL EXAM: VITAL SIGNS: Reviewed CONSTITUTIONAL: Well developed and in no acute distress. EYES: Conjuctivae without sclera icterus. Extraocular movements grossly intact. HEAD, EARS, NOSE, THROAT: Moist buccal mucosa. Head is atraumatic, n ormocephalic. Hears conversational speech. No nasal drainage. NECK: Supple RESPIRATORY: Non-labored respirations and equal bilateral excursions. CARDIOVASCULAR: Palpable 2+ radial pulses. ABDOMEN: Soft. Non-tender. Ostomy patent and pick MUSCULOSKELETAL: No gross deformity of the lower extremities noted. No clubbing. No cyanosis. SKIN: Good skin turgor. Well perfused. Multiple small lacerations along the left forearm superficial NEUROLOGIC: Cranial nerves I through XII grossly intact. No focal or lateralizing signs. PSYCH: Appropriate affect. Alert and oriented to person, place and time. : Box with gross hematuria. CLINCAL LABS: WBC with persistent leukocytosis improved from 14,000-13,000 STUDIES: CT of the abdomen and pelvis independently reviewed demonstrating dila kiah stomach. Moderate inflammation of the descending colon. The bladder is distended despite having a Box catheter. Rectal stump appears fluid filled. Questionable fluid collection in pelvis heart to distinguish between dilated rectal stump and bladder. This is my personal interpretation. No evidence of free air or obstruction. Air-fluid collection without air bubbles not an abscess. RADIOLOGY: Report reviewed of questionable 9 cm fluid collection in the pelvis. ASSESSMENT: 1. Status post colectomy due to colon obstruction from diverticulitis 2. Moderate protein malnutrition due to inadequate protein intake 3. Diabetes type 2, poorly controlled 4. Intrapelvic fluid collection PLAN: 1. Clinically patient is stable. Infectious disease no consult in secondary to persistent leukocytosis 2. Recommend change or flush of Box catheter secondary to bladder distention 3. Patient pending CT-guided drainage of fluid filled collection 4. I personally removed her NGT 5. Will re-start ice and popsicles. Objective - Vital Signs Vital signs: Vital Signs Temp 98.4 F 02/25/19 08:00 Pulse 88 02/25/19 10:00 Resp 14 02/25/19 10:00 BP 122/78 02/25/19 10:00 Pulse Ox 91 L 02/25/19 10:00 Intake & Output 02/24/19 02/25/19 02/25/19 18:59 06:59 18:59 Intake Total 1600 1400 550 Output Total 1860 1280 690 Balance -260 120 -140 Weight 74.5 kg Intake: IV 700 1325 550 0.9 Normal saline 150 PPN 825 300 Piperacillin-Tazobactam 3 100 50 .375 gm In Sodium Chloride 0.9% 100 ml @ 25 mls/hr IVPB Q12HR [facility] Rx #:[id number] Piperacillin-Tazobactam 3 100 .375 gm In Sodium Chloride 0.9% 100 ml @ 25 mls/hr IVPB Q8HR [facility] Rx# :[id number] Sodium Chloride 0.9% 1, 450 400 200 000 ml @ 50 mls/hr IV . Q20H [facility] Rx#:[id number] Intake, IV Titration 900 75 Amount Mvi, Adult No.4 with Vit 750 75 K 10 ml Trace (Conc-1Ml/ Dose) 1 ml Sodium Acetate 40 meq Calcium Gluconate 1 gm In Amino Acid 4.25% -D10w 1,000 ml @ 75 mls/ hr IV .BY DURATION [facility] Rx #:[id number] Sodium Acetate 40 meq 150 Calcium Gluconate 1 gm In Amino Acid 4.25%-D10w 1, 000 ml @ 75 mls/hr IV .BY DURATION [facility] Rx#: [id number] Output: Gastric Drainage 150 Urine 1460 1280 690 Oral Regurgitation 250 Other: Voiding Method Indwelling Catheter Indwelling Catheter - Labs CBC & Chem 7: 02/25/19 03:51 02/25/19 03:51 Labs: Abnormal Lab Results - Last 24 Hours (Table) 02/24/19 02/24/19 02/24/19 Range/Units 12:05 16:55 18:34 WBC (3.8-10.6) k/uL RBC (3.80-5.40) m/uL Hgb (11.4-16.0) gm/dL Hct (34.0-46.0) % Plt Count (150-450) k/uL Neutrophils # (1.3-7.7) k/uL Lymphocytes # (1.0-4.8) k/uL Sodium (137-145) mmol/L BUN (7-17) mg/dL Creatinine (0.52-1.04) mg/dL Glucose (74-99) mg/dL POC Glucose (mg/dL) 179 H 137 H 144 H (75-99) mg/dL Alkaline Phosphatase (38-126) U/L Total Protein (6.3-8.2) g/dL Albumin (3.5-5.0) g/dL Urine Appearance (Clear) Urine Protein (Negative) Urine Blood (Negative) Ur Leukocyte Esterase (Negative) Urine RBC (0-5) /hpf Urine WBC (0-5) /hpf Urine WBC Clumps (None) /hpf Urine Bacteria (None) /hpf 02/24/19 02/25/19 02/25/19 Range/Units 21:11 03:51 03:51 WBC 13.3 H (3.8-10.6) k/uL RBC 2.90 L (3.80-5.40) m/uL Hgb 8.3 L (11.4-16.0) gm/dL Hct 26.5 L (34.0-46.0) % Plt Count 734 H (150-450) k/uL Neutrophils # 10.7 H (1.3-7.7) k/uL Lymphocytes # 0.8 L (1.0-4.8) k/uL Sodium 135 L (137-145) mmol/L BUN 63 H (7-17) mg/dL Creatinine 2.38 H (0.52-1.04) mg/dL Glucose 142 H (74-99) mg/dL POC Glucose (mg/dL) 133 H (75-99) mg/dL Alkaline Phosphatase 225 H (38-126) U/L Total Protein 5.2 L (6.3-8.2) g/dL Albumin 2.4 L (3.5-5.0) g/dL Urine Appearance (Clear) Urine Protein (Negative) Urine Blood (Negative) Ur Leukocyte Esterase (Negative) Urine RBC (0-5) /hpf Urine WBC (0-5) /hpf Urine WBC Clumps (None) /hpf Urine Bacteria (None) /hpf 02/25/19 02/25/19 Range/Units 07:05 08:50 WBC (3.8-10.6) k/uL RBC (3.80-5.40) m/uL Hgb (11.4-16.0) gm/dL Hct (34.0-46.0) % Plt Count (150-450) k/uL Neutrophils # (1.3-7.7) k/uL Lymphocytes # (1.0-4.8) k/uL Sodium (137-145) mmol/L BUN (7-17) mg/dL Creatinine (0.52-1.04) mg/dL Glucose (74-99) mg/dL POC Glucose (mg/dL) 158 H (75-99) mg/dL Alkaline Phosphatase (38-126) U/L Total Protein (6.3-8.2) g/dL Albumin (3.5-5.0) g/dL Urine Appearance Cloudy H (Clear) Urine Protein 1+ H (Negative) Urine Blood Large H (Negative) Ur Leukocyte Esterase Large H (Negative) Urine RBC >182 H (0-5) /hpf Urine WBC >182 H (0-5) /hpf Urine WBC Clumps Many H (None) /hpf Urine Bacteria Occasional H (None) /hpf Assessment and Plan (1) Diverticulitis with obstruction Current Visit: Yes Status: Acute Code(s): K57.92 - DVTRCLI OF INTEST, PART UNSP, W/O PERF OR ABSCESS W/O BLEED SNOMED Code(s): 309407979 (2) Atrial fibrillation with RVR Current Visit: Yes Status: Acute Code(s): I48.91 - UNSPECIFIED ATRIAL FIBR ILLATION SNOMED Code(s): 069812444776302 (3) Stage 3 chronic renal impairment associated with type 2 diabetes mellitus Current Visit: Yes Status: Acute Code(s): E11.22 - TYPE 2 DIABETES MELLITUS W DIABETIC CHRONIC KIDNEY DISEASE; N18.3 - CHRONIC KIDNEY DISEASE, STAGE 3 (MODERATE) SNOMED Code(s): 358376196952 (4) Diabetes type 2, uncontrolled Current Visit: Yes Status: Acute Code(s): E11.65 - TYPE 2 DIABETES MELLITUS WITH HYPERGLYCEMIA SNOMED Code(s): 219392848 (5) Leukocytosis Current Visit: Yes Status: Acute Code(s): D72.829 - ELEVATED WHITE BLOOD CELL COUNT, UNSPECIFIED SNOMED Code(s): 423645615 (6) Colostomy status Current Visit: Yes Status: Acute Code(s): Z93.3 - COLOSTOMY STATUS SNOMED Code(s): 950113941
--- NOTE | 2019-02-25 15:24 | P.PN ---
Subjective Progress Note Date: 02/25/19 Dictation progress note date of service 02/25/[address] Engel Patient awake alert oriented seen today [id number] in the ICU. She is planned for invasive radiology for aspiration of the fluid in the pelvic area to clarify the etiology as abscess formation(blood, She has persistent leukocytosis with white count 13.3 and the hemoglobin is 8.3 her platelet count is reactive elevation was 734. Her on chemistry indicating sodium 135 potassium 4.6, normal chloride 104 carbon dioxide 22 and anion gap is 9 BUN of 63 and creatinine 2.38 GFR 18 for non- which is has been fluctuating with the underlying TPN. Blood sugar was 142 in a.m. and the POC glucose has been fluctuating lost 1937. Calcium 9.1, liver enzyme within normal limit and magnesium 2.2 phosphorus 4.5. Her alkaline phosphatase is elevated to 125, protein 5.2 and albumin 2.4. She had new She had a urine analysis today indicating that 1+ protein gouty large leukocyte esterase RBCs more than 182 WBC more than 182 and WBC clumps many urine bacteria occasional, 02/07/2019 she had a urine analysis and culture with that catheterization, patient has neurogenic bladder, found to have Klebsiella pneumonia and E. coli. Blood culture was negative, today he has urine analysis as mentioned above and she had a catheter as well her bladder was distended and could be presence of clot preventing the urine and the presence of underlying hydronephrosis. Hydroureter and down the catheter will be regulated. And hopefully they did a culture on the current urine , I did call the the laboratory added culture and sensitivity. Dr. Guzmán also saw the patient today for Dr. Miller and she discontinue the NG tube with the improvement on the distention of the abdomen and the stool is common in the colostomy pouch. On exam patient is conscious alert oriented. No specific complaint of pain with the controlled No difficulty in breathing with the longer radiated except the right lower lung field with the underlying elevated hemidiaphragm. Heart is irregular with the atrial fibrillation and the patient is not symptomatic at this time with the palpitation. The abdomen positive bowel sounds still distended however improved from yesterday and the NG tube was removed by Dr. Guzmán also her Murphy catheter irrigated with the bladder distention with the presence of hydronephrosis hydroureter. Extremities no edema and positive pulses and she waiting the of thrombotic inflatable stocking. Assessment: Patient with gradual improvement, TPN, hyperglycemia second TPN which controlled with insulin to scale. UTI with the urine analysis, requested the culture and sensitivity. And subsequent adjusting the antibiotic accordingly. Hopefully received the opinion of the urologist as well on the round. Plan: Tomorrow she will be having aspiration with the invasive radiology of the pelvic fluid to clarify the etiology with the persistent leukocytosis and questionable abscess formation. Hopefully we get the culture result soon for initiating second antibiotic currently patient was on Zosyn every 12 hours by pulmonary and critical care Dr. Fernandez. Patient followed by the cardiology and she is monitored with the atrial fib and RVR and she is currently on oral medication. Objective - Vital Signs Vital signs: Vital Signs Temp 99.1 F 02/25/19 11:00 Pulse 117 H 02/25/19 13:00 Resp 16 02/25/19 13:00 BP 132/90 02/25/19 13:00 Pulse Ox 93 L 02/25/19 13:00 Intake & Output 02/24/19 02/25/19 02/25/19 18:59 06:59 18:59 Intake Total 1600 2441 1050 Output Total 1860 1280 1030 Balance -260 1161 20 Weight 74.5 kg Intake: IV 700 1325 1050 0.9 Normal saline 150 PPN 825 600 Piperacillin-Tazobactam 3 100 100 .375 gm In Sodium Chloride 0.9% 100 ml @ 25 mls/hr IVPB Q12HR [facility] Rx #:[id number] Piperacillin-Tazobactam 3 100 .375 gm In Sodium Chloride 0.9% 100 ml @ 25 mls/hr IVPB Q8HR [facility] Rx# :[id number] Sodium Chloride 0.9% 1, 450 400 350 000 ml @ 50 mls/hr IV . Q20H [facility] Rx#:[id number] Intake, IV Titration 900 1116 Amount Mvi, Adult No.4 with Vit 750 1116 K 10 ml Trace (Conc-1Ml/ Dose) 1 ml Sodium Acetate 40 meq Calcium Gluconate 1 gm In Amino Acid 4.25% -D10w 1,000 ml @ 75 mls/ hr IV .BY DURATION [facility] Rx #:[id number] Sodium Acetate 40 meq 150 Calcium Gluconate 1 gm In Amino Acid 4.25%-D10w 1, 000 ml @ 75 mls/hr IV .BY DURATION [facility] Rx#: [id number] Output: Gastric Drainage 150 Urine 1460 1280 1030 Oral Regurgitation 250 Other: Voiding Method Indwelling Catheter Indwelling Catheter Indwelling Catheter - Labs CBC & Chem 7: 02/25/19 03:51 02/25/19 03:51 Labs: Abnormal Lab Results - Last 24 Hours (Table) 02/24/19 02/24/19 02/24/19 Range/Units 16:55 18:34 21:11 WBC (3.8-10.6) k/uL RBC (3.80-5.40) m/uL Hgb (11.4-16.0) gm/dL Hct (34.0-46.0) % Plt Count (150-450) k/uL Neutrophils # (1.3-7.7) k/uL Lymphocytes # (1.0-4.8) k/uL Sodium (137-145) mmol/L BUN (7-17) mg/dL Creatinine (0.52-1.04) mg/dL Glucose (74-99) mg/dL POC Glucose (mg/dL) 137 H 144 H 133 H (75-99) mg/dL Alkaline Phosphatase (38-126) U/L Total Protein (6.3-8.2) g/dL Albumin (3.5-5.0) g/dL Urine Appearance (Clear) Urine Protein (Negative) Urine Blood (Negative) Ur Leukocyte Esterase (Negative) Urine RBC (0-5) /hpf Urine WBC (0-5) /hpf Urine WBC Clumps (None) /hpf Urine Bacteria (None) /hpf 02/25/19 02/25/19 02/25/19 Range/Units 03:51 03:51 07:05 WBC 13.3 H (3.8-10.6) k/uL RBC 2.90 L (3.80-5.40) m/uL Hgb 8.3 L (11.4-16.0) gm/dL Hct 26.5 L (34.0-46.0) % Plt Count 734 H (150-450) k/uL Neutrophils # 10.7 H (1.3-7.7) k/uL Lymphocytes # 0.8 L (1.0-4.8) k/uL Sodium 135 L (137-145) mmol/L BUN 63 H (7-17) mg/dL Creatinine 2.38 H (0.52-1.04) mg/dL Glucose 142 H (74-99) mg/dL POC Glucose (mg/dL) 158 H (75-99) mg/dL Alkaline Phosphatase 225 H (38-126) U/L Total Protein 5.2 L (6.3-8.2) g/dL Albumin 2.4 L (3.5-5.0) g/dL Urine Appearance (Clear) Urine Protein (Negative) Urine Blood (Negative) Ur Leukocyte Esterase (Negative) Urine RBC (0-5) /hpf Urine WBC (0-5) /hpf Urine WBC Clumps (None) /hpf Urine Bacteria (None) /hpf 02/25/19 02/25/19 Range/Units 08:50 11:41 WBC (3.8-10.6) k/uL RBC (3.80-5.40) m/uL Hgb (11.4-16.0) gm/dL Hct (34.0-46.0) % Plt Count (150-450) k/uL Neutrophils # (1.3-7.7) k/uL Lymphocytes # (1.0-4.8) k/uL Sodium (137-145) mmol/L BUN (7-17) mg/dL Creatinine (0.52-1.04) mg/dL Glucose (74-99) mg/dL POC Glucose (mg/dL) 138 H (75-99) mg/dL Alkaline Phosphatase (38-126) U/L Total Protein (6.3-8.2) g/dL Albumin (3.5-5.0) g/dL Urine Appearance Cloudy H (Clear) Urine Protein 1+ H (Negative) Urine Blood Large H (Negative) Ur Leukocyte Esterase Large H (Negative) Urine RBC >182 H (0-5) /hpf Urine WBC >182 H (0-5) /hpf Urine WBC Clumps Many H (None) /hpf Urine Bacteria Occasional H (None) /hpf
[2019-02-25 16:53] LABS: Glucose,Whole Blood 128 mg/dL (75-99)
[2019-02-25 21:31] LABS: Glucose,Whole Blood 155 mg/dL (75-99)
[2019-02-25] MEDS: ATORVASTATIN 10 MG TAB PO SCH (21:42)
[2019-02-25] MEDS: DULoxetine HCL 60 MG CAPSULE.DR PO SCH (21:44)
[2019-02-25] MEDS: HEPARIN SOD,PORK IN 0.45% NACL 25,000 UNIT in 0.45% NACL 1 250ML.BAG IV SCH (21:47)
[2019-02-25] MEDS: DILTIAZEM ORAL 30 MG TAB PO SCH (21:52)
--- NOTE | 2019-02-25 21:57 | PN ---
PROGRESS NOTE DATE OF SERVICE: 02/25/2019 REASON FOR FOLLOWUP VISIT: Pelvic abscess. INTERVAL HISTORY: The patient is currently afebrile. Patient has been breathing comfortably. Patient denies having any chest pain or shortness of breath. Minimal cough. No nausea, no vomiting. Denies any worsening abdominal pain. PHYSICAL EXAMINATION: Blood pressure is 122/98 with a pulse of 150, temperature 98. She is 91% on high-flow oxygen. General description is an elderly female lying in bed in no distress. Respiratory system: Unlabored breathing. Decreased breath sounds at the bases. No wheeze. Heart S1, S2. Regular rate and rhythm. Abdomen soft. Mild tenderness. No guarding or rigidity. LABS: Hemoglobin 8.8, white count 13.3. The creatinine is 2.38. Urine with Klebsiella and E coli. DIAGNOSTIC IMPRESSION AND PLAN: Patient admitted to hospital with abdominal pain, diagnosed with diverticulitis. The patient is status post diverting colostomy, now with evidence of abdominal abscess. Awaiting a CT-guided drainage. The patient to continue with Zosyn adjusting it by the ( ) of the culture report and monitor clinical course closely. Family at the bedside. MMODL / IJN: [id number] /
[2019-02-26 05:57] LABS: Ionized Calcium 5.5 mg/dL (4.5-5.3)
[2019-02-26 05:59] LABS: Phosphorus 3.4 mg/dL (2.5-4.5)
[2019-02-26 06:11] LABS: Basophils # (A) 0.2 k/uL (0-0.2); Basophils % (A) 2 %; Eosinophils # (A) 0.9 k/uL (0-0.7); Eosinophils % (A) 8 %; HGB 7.5 gm/dL (11.4-16.0); Hypochromasia Slight; Lymphocytes # (A) 0.9 k/uL (1.0-4.8); Lymphocytes % (A) 8 %; MCH 29.9 pg (25.0-35.0); MCHC 32.6 g/dL (31.0-37.0); MCV 91.6 fL (80.0-100.0); Mean Platelet Volume 8.8; Monocytes # (A) 0.7 k/uL (0-1.0); Monocytes % (A) 6 %; Neutrophils # (A) 8.3 k/uL (1.3-7.7); Neutrophils % (A) 73 %; Platelet Count 712 k/uL (150-450); RBC 2.51 m/uL (3.80-5.40); RDW 14.3 % (11.5-15.5); WBC 11.4 k/uL (3.8-10.6)
[2019-02-26] MEDS: SODIUM CHLORIDE 0.9% 1,000 ML IV SCH ×2 (06:26→17:27)
[2019-02-26 06:45] LABS: Glucose,Whole Blood 152 mg/dL (75-99)
[2019-02-26] MEDS: DRONABINOL 2.5 MG CAP PO SCH (06:49)
[2019-02-26] MEDS: INSULIN ASPART (NovoLOG) 100 UNIT/ML VIAL SQ SCH ×4 (06:49→21:10)
--- NOTE | 2019-02-26 07:20 | XR ---
EXAMINATION TYPE: XR chest 1V portable DATE OF EXAM: 02/26/2019 COMPARISON: 02/23/2019 HISTORY: Shortness of breath TECHNIQUE: Single frontal view of the chest is obtained. FINDINGS: Patchy right lower lung opacity remains. Chronic right hemidiaphragm elevation is seen. Op acity is also noted in the retrocardiac airspace. Malpositioned right PICC is again seen coursing off the cranial aspect of the [id number]. Enteric tube has been removed. Generalized osseous deminera lization and degenerative changes are seen. Cardiomediastinal silhouette is enlarged. Trace pleural e ffusions are again noted. IMPRESSION: 1. Malpositioned right PICC again in the right jugular vein. 2. Redemonstration of trace pleural effusions and bibasilar opacities that may represent atelectasis or pneumonia.
[2019-02-26] MEDS: BUDESONIDE 0.5 MG/2 ML NEBU INHALATION SCH ×2 (07:43→20:52)
[2019-02-26] MEDS: IPRATROPIUM-ALBUTEROL 3 ML NEB INHALATION SCH ×4 (07:43→20:52)
--- NOTE | 2019-02-26 09:18 | P.PN ---
Subjective Progress Note Date: 02/26/19 Principal diagnosis: Acute bowel obstruction status post laparotomy with extensive lysis of adhesions and sigmoid colectomy and end colostomy postoperative day 5 This is a pleasant 83-year-old female patient admitted back on 02/07/2019 with complaints of constipation and abdominal discomfort. She had not moved her bowels for several days prior. Abdominal x-rays did show evidence of constipation. Fleet enema and MiraLAX at home were unsuccessful. She was subsequently admitted for abdominal bloating and discomfort. She was found to have a colon obstruction and yesterday had undergone exposure laparotomy, extensive lysis of adhesions, sigmoid colectomy, end colostomy done by Dr. Miller. She remained hypoxic postoperatively and was placed on BiPAP with an FiO2 of 80%. We're consulted for the same. No chest x-ray was done. She is seen today on the selective care unit. She is currently awake and alert in no acute distress. She is having some ongoing abdominal discomfort. She has a midline incision with maggy intact and a colostomy with stool present. She is currently on 6 L high flow nasal cannula and maintaining O2 saturation in the mid 90s. She denies any worsening shortness of breath, cough or congestion. Urine culture was positive for Klebsiella pneumoniae and E coli. Blood cultures had revealed no growth. White count 12.8. Hemoglobin 11.6. Sodium 148. Potassium 3.9. Creatinine 2.20. She has D5.45 running at 100 ML's per hour. She is currently on ceftriaxone and Flagyl. PPN and lipids have been ordered. The patient was having issues with atrial fibrillation preoperatively and was initially on a heparin drip. The plan from cardiology is to initiate Eliquis once cleared surgically. On today's evaluation of 02/14/2019 I was asked even with this patient and the patient was found to be more lethargic and short of breath. I the patient did she is relatively comfortable on oxygen at 4 L. Nevertheless, she states that she wants to and she is unable to take this ongoing treatment any further. In terms of her cardiac condition, she is in atrial fibrillation with rapid ventricular response and a current heart rate is around 120-140. She has a Murphy catheter urine output is in order of 30 mL an hour. She had a chest x-ray that showed increased opacification of the lung bases. Ultrasound of the chest was done that showed small pockets and based on the ultrasound these markers were not and minimal 4 thoracentesis. She is on Diprivan running at the rate of 75 mL an hour. She is also on IV fluids running at 75 mL an hour of normal saline. The patient has a positive fluid balance of 1.1 L. She has a creatinin e of 2.4 with a mean of 34. ABCDs not done this morning. She has a positive output and her colostomy bag. The surgical wound site is dry clean and intact. She is afebrile for now. on 02/16/2016, the patient is transferred to the intensive care unit. The patient's oxygen requirements went up yesterday and she is currently on15 L of oxygen by nasal cannula. I opted to bring her down to the ICU. The ultrasound of the chest was not conclusive in terms of fluid and based on that I ordered a CAT scan of the chest that was done without contrast and the CAT scan showed worsening atelectatic changes in lung bases, pneumonia cannot be completely excluded. The pleural effusions were very tiny and there were not and the blood for thoracentesis. Based on that, no intervention was done. Currently she is awake and alert. She is on a combination of IV Rocephin and Flagyl.er white cell count came up to 18. Her creatinine is up to 2.1. Creatinine is stable for now. The lactic acid level was low at 1. She is awake. She is alert. The colostomy is functioning and she has adequate output at this point in time.The patient still on TPN and were going to initiate someclear liquid diet today. Reevaluated today on 02/16/2019, patient remains in the ICU, O2 saturation is marginal, still requiring a high flow nasal cannula at 15 L/m, chest x-ray shows significant airspace disease and atelectasis with consolidation at the bases bilaterally right more so than left, hence I recommended that we use intermittently BiPAP with IPAP of 12 and EPAP of 4. Continues to have leukocytosis with WBC count of 14.5, hemoglobin is 10.1 lites are normal BUN is 41 creatinine 2.01. Close to her baseline since admission. Chest x-ray is quite concerning to me, and CT of the chest was also reviewed, patient has significant bibasilar consolidation and air bronchograms noted in both lungs bilaterally more so in the right lower lobe. On 02/17/2019 patient seen in follow-up in the intensive care unit, she is off BiPAP support currently, she is on 15 L, and her pulse ox is 92-94%, either tachycardic on a monitor, hemodynamically patient is stable, she states she feels short of breath, she has a congested cough, at times she is able to produce small amount of yellowish sputum, lung sounds are positive for rhonchi, and some wheezing, urine culture was positive for Klebsiella pneumonia and E. c rema, blood culture has shown no growth, patient's antibiotics have been simplified and currently patient is on Zosyn. White count is trending down, it is 13.8 on today's labs, hemoglobin is 10.2, sodium was 135, dorsiflexors were unremarkable, B1 is 41 creatinine is 1.94, profile is slightly improved, incentive spirometry effort is poor, and patient is only able to achieve 500 on the incentive spirometer today. Patient continues to be nothing by mouth, she continues on TPN, she was started on promotility agent, in the form of Reglan. Was no output from her ostomy overnight. Surgery is following. On 02/23/2019 patient was seen in follow-up in the intensive care unit. This is postoperative day #11, status post exploratory laparotomy, and extensive lysis of adhesions, sigmoid colectomy and colostomy for acute bowel obstruction. She is awake and alert, does not appear to be in any acute distress, still requiring high flow oxygen, to 15 L currently, her pulse ox is 97%, we will try to wean it down, she's been afebrile, she is however in A. fib RVR with a rate of 120-140, currently on oral metoprolol for rate control, she is on Lopressor 50 mg 3 times daily, is on IV antibiotics, no form of Zosyn, urine culture showed Klebsiella pneumonia and E. coli, susceptible to Zosyn. Hemodynamically she is stable, there have been no fevers, his labs have been reviewed, showing white blood cell count of 16.2, hemoglobin of 8.7, platelet count of 721, sodium is 133, potassium is 5.0, CO2 is 21, BUN is 56, creatinine is 2.17. Today's chest x-ray has been reviewed during patchy bibasilar opacities , low lung volumes, persistent trace pleural effusions, and atelectasis. Mid abdominal incision clean dry and intact, maggy are intact, left abdomen colostomy is with liquid stool, bowel sounds are present. Patient remains on TPN for supplementation of nutrition, and patient is also on the chopped dysphagia 3 diet with 1500 mL fluid restriction. On 02/24/2019 patient seen in follow-up in the intensive care unit, she is resting comfortably in bed, this is postop day 12 status post exploratory laparotomy, and extensive lysis of adhesions, sigmoid colectomy and colostomy for acute bowel obstruction. Yesterday patient had a CT of abdomen and pelvis which revealed a large discrete fluid collection in the pelvis between the rectum and the urinary bladder that could be related to an abscess. Interventional radiology has been consulted for possible drainage of this abscess, however patient has been on Eliquis, and IR will not be able to proceed with the procedure for about 48 hours. Patient denies abdominal discomfort, NG tube has been inserted, and her about 300-400 mL of brownish colored output. Denies any worsening dyspnea, she needs a lot of encouragement to work with the incentive spirometer, and she is only achieving 250-500 mL on it today. Remains in A. fib but today's rate is better controlled, oral diltiazem has been added in addition to metoprolol. Hemodynamically stable. Patient is Zosyn for empiric antibiotic coverage, she's been afebrile, today's labs have been reviewed, showing white blood cell count of 14.0, hemoglobin of 7.7, serum sodium is 132, the rest of the electrolytes were within normal limits, BUN is 63 and creatinine is 2.4, chest x-ray today shows congestive heart failure with pleural effusions. On 02/26/2019 patient is seen in follow-up in the intensive care unit, she is awake and alert, but only oriented to person, confused, but appears to be in no acute distress, FiO2 is down to 6 L per high flow nasal cannula a pulse ox of 90, denies any respiratory distress, lung sounds are clear, diminished at the bases, remains nothing by mouth, abdomen is tender to palpation, but no acute distress, NGT has been discontinued. Patient has positive bowel sounds. Heparin infusion is on hold, the possibility of a cutaneous drainage of intra- abdominal abscess. Based chest x-ray has been reviewed and showing a right PICC line in the right jugular vein, we will reconsult interventional radiology for repositioning of the PICC line, and trace pleural effusions and bibasilar opacities that may represent atelectasis or pneumonia. Antibiotic coverage in the form of Zosyn, patient has been afebrile. Colostomy is functioning, making liquid brown stool. Objective - Vital Signs Vital signs: Vital Signs Temp 97.7 F 02/26/19 08:00 Pulse 76 02/26/19 08:02 Resp 13 02/26/19 08:00 BP 144/65 02/26/19 08:00 Pulse Ox 100 02/26/19 08:00 Intake & Output 02/25/19 02/26/19 02/26/19 18:59 06:59 18:59 Intake Total 2455 1500 250 Output Total 1340 820 345 Balance 1115 680 -95 Weight 73.8 kg Intake: IV 1425 1500 250 PPN 825 900 150 Piperacillin-Tazobactam 3 100 .375 gm In Sodium Chloride 0.9% 100 ml @ 25 mls/hr IVPB Q12HR [facility] Rx #:[id number] Sodium Chloride 0.9% 1, 500 600 100 000 ml @ 50 mls/hr IV . Q20H [facility] Rx#:[id number] Intake, IV Titration 1030 Amount Sodium Acetate 40 meq 1030 Calcium Gluconate 1 gm In Amino Acid 4.25%-D10w 1, 000 ml @ 75 mls/hr IV .BY DURATION [facility] Rx#: [id number] Output: Urine 1340 720 345 Stool 100 Other: Voiding Method Indwelling Catheter Indwelling Catheter - Exam GENERAL EXAM: Alert, pleasant, 83-year-old white female, dyspneic with conversation, she is on 6 L per high flow nasal cannula, and her pulse ox is 94%, comfortable in no apparent distress. HEAD: Normocephalic/atraumatic. EYES: Normal reaction of pupils, equal size. Conjunctiva pink, sclera white. NOSE: Clear with pink turbinates. THROAT: No erythema or exudates. NECK: No masses, no JVD, no thyroid enlargement, no adenopathy. CHEST: No chest wall deformity. Symmetrical expansion. LUNGS: Equal air entry with mild rhonchi, diminished breath sounds CVS: Irregular rate and rhythm, normal S1 and S2, no gallops, no murmurs, no rubs ABDOMEN: Soft, nontender. No hepatosplenomegaly, normal bowel sounds, no guarding or rigidity. Midline incision with maggy intact, colostomy with liquid yellow output EXTREMITIES: No clubbing, no edema, no cyanosis, 2+ pulses and upper and lower extremities. MUSCULOSKELETAL: Muscle strength and tone normal. SPINE: No scoliosis or deformity SKIN: No rashes CENTRAL NERVOUS SYSTEM: Alert and oriented -2. No focal deficits, tone is normal in all 4 extremities. PSYCHIATRIC: Alert and oriented -2. Appropriate affect. Intact judgment and insight. - Labs CBC & Chem 7: 02/26/19 05:05 02/26/19 05:02 Labs: Abnormal Lab Results - Last 24 Hours (Table) 02/25/19 02/25/19 02/25/19 Range/Units 08:50 11:41 16:52 WBC (3.8-10.6) k/uL RBC (3.80-5.40) m/uL Hgb (11.4-16.0) gm/dL Hct (34.0-46.0) % Plt Count (150-450) k/uL Neutrophils # (1.3-7.7) k/uL Lymphocytes # (1.0-4.8) k/uL Eosinophils # (0-0.7) k/uL Sodium (137-145) mmol/L BUN (7-17) mg/dL Creatinine (0.52-1.04) mg/dL Glucose (74-99) mg/dL POC Glucose (mg/dL) 138 H 128 H (75-99) mg/dL Ionized Calcium Bianka (4.5-5.3) mg/dL Triglycerides (<150) mg/dL Urine Appearance Cloudy H (Clear) Urine Protein 1+ H (Negative) Urine Blood Large H (Negative) Ur Leukocyte Esterase Large H (Negative) Urine RBC >182 H (0-5) /hpf Urine WBC >182 H (0-5) /hpf Urine WBC Clumps Many H (None) /hpf Urine Bacteria Occasional H (None) /hpf 02/25/19 02/26/19 02/26/19 Range/Units 21:29 05:02 05:05 WBC 11.4 H (3.8-10.6) k/uL RBC 2.51 L (3.80-5.40) m/uL Hgb 7.5 L (11.4-16.0) gm/dL Hct 23.0 L (34.0-46.0) % Plt Count 712 H (150-450) k/uL Neutrophils # 8.3 H (1.3-7.7) k/uL Lymphocytes # 0.9 L (1.0-4.8) k/uL Eosinophils # 0.9 H (0-0.7) k/uL Sodium 135 L (137-145) mmol/L BUN 57 H (7-17) mg/dL Creatinine 2.23 H (0.52-1.04) mg/dL Glucose 129 H (74-99) mg/dL POC Glucose (mg/dL) 155 H (75-99) mg/dL Ionized Calcium Bianka 5.5 H (4.5-5.3) mg/dL Triglycerides 234 H (<150) mg/dL Urine Appearance (Clear) Urine Protein (Negative) Urine Blood (Negative) Ur Leukocyte Esterase (Negative) Urine RBC (0-5) /hpf Urine WBC (0-5) /hpf Urine WBC Clumps (None) /hpf Urine Bacteria (None) /hpf 02/26/19 Range/Units 06:43 WBC (3.8-10.6) k/uL RBC (3.80-5.40) m/uL Hgb (11.4-16.0) gm/dL Hct (34.0-46.0) % Plt Count (150-450) k/uL Neutrophils # (1.3-7.7) k/uL Lymphocytes # (1.0-4.8) k/uL Eosinophils # (0-0.7) k/uL Sodium (137-145) mmol/L BUN (7-17) mg/dL Creatinine (0.52-1.04) mg/dL Glucose (74-99) mg/dL POC Glucose (mg/dL) 152 H (75-99) mg/dL Ionized Calcium [place] (4.5-5.3) mg/dL Triglycerides (<150) mg/dL Urine Appearance (Clear) Urine Protein (Negative) Urine Blood (Negative) Ur Leukocyte Esterase (Negative) Urine RBC (0-5) /hpf Urine WBC (0-5) /hpf Urine WBC Clumps (None) /hpf Urine Bacteria (None) /hpf Microbiology - Last 24 Hours (Table) 02/25/19 08:50 Urine Culture - Preliminary Urine,Voided Assessment and Plan Plan: Assessment: #1. Acute bowel obstruction, status post exploratory laparotomy, extensive lysis of adhesions, sigmoid colectomy, and colostomy, postoperative day 14 #2. Large fluid collection in the pelvis could be related to an abscess, interventional radiology has been consulted for drainage #3. Bilateral hydronephrosis seen on the CT of the abdomen and pelvis #4. Acute hypoxic respiratory failure suspect aspiration pneumonia, and postoperative atelectasis #5. Acute urinary tract infection secondary to Klebsiella pneumonia and E. coli, susceptible to Zosyn which the patient is currently on #6. A. fib with RVR, on oral metoprolol for rate control, and Eliquis #7. Chronic atrial fibrillation #8. Benign essential hypertension #9. History of hyperlipidemia #10. Acute on chronic renal failure patient has chronic kidney disease stage III at baseline Plan: Continue medical treatment, await percutaneous intra-abdominal drainage per interventional radiology, reconsult CVL in interventional radiology for PICC line repositioning, continue empiric antibiotic coverage, hemodynamic patient is stable, white count is trending down, renal profile slightly improved, no nausea no vomiting, colostomy is functioning and producing liquid brown stool. NG tube has been discontinued. His chest x-ray has been reviewed showing bibasilar atelectasis trace pleural effusions. Continue weaning FiO2, encourage deep breathing and coughing, incentive spirometry use, maintain aspiration precautio ns I performed a history & physical examination of the patient and discussed their management with my nurse practitioner, Suzanne Kaur. I reviewed the nurse practitioner's note and agree with the documented findings and plan of care. Lung sounds are positive for diminished breath sounds with minimal rhonchi. The findings and the impression was discussed with the patient. I attest to the doc umentation by the nurse practitioner. Time with Patient: Less than 30
--- NOTE | 2019-02-26 09:59 | P.PN ---
Subjective Patient is seen in follow-up for acute kidney injury on chronic kidney disease. Renal function is fairly stable. She is nonoliguric. Murphy catheter had to be flushed last night. She has been passing blood clots. Underwent exploratory laparotomy with sigmoid colectomy and end colostomy this admission. She is maintained on TPN which is running at 75 mL an hour. Vital signs are stable. General: The patient appeared well nourished and normally developed. HEENT: Head exam is unremarkable. Neck is without jugular venous distension. LUNGS: Lungs are clear to auscultation and percussion. Breath sounds decreased. HEART: Rate and Rhythm are regular. First and second heart sounds normal. No murmurs, rubs or gallops. ABDOMEN: Bowel sounds present. Soft. EXTREMITITES: No clubbing, cyanosis, or edema. Objective - Vital Signs Vital signs: Vital Signs Temp 97.7 F 02/26/19 08:00 Pulse 76 02/26/19 08:02 Resp 13 02/26/19 08:00 BP 144/65 02/26/19 08:00 Pulse Ox 100 02/26/19 08:00 Intake & Output 02/25/19 02/26/19 02/26/19 18:59 06:59 18:59 Intake Total 2455 1500 250 Output Total 1340 820 345 Balance 1115 680 -95 Weight 73.8 kg Intake: IV 1425 1500 250 PPN 825 900 150 Piperacillin-Tazobactam 3 100 .375 gm In Sodium Chloride 0.9% 100 ml @ 25 mls/hr IVPB Q12HR [facility] Rx #:[id number] Sodium Chloride 0.9% 1, 500 600 100 000 ml @ 50 mls/hr IV . Q20H [facility] Rx#:[id number] Intake, IV Titration 1030 Amount Sodium Acetate 40 meq 1030 Calcium Gluconate 1 gm In Amino Acid 4.25%-D10w 1, 000 ml @ 75 mls/hr IV .BY DURATION [facility] Rx#: [id number] Output: Urine 1340 720 345 Stool 100 Other: Voiding Method Indwelling Catheter Indwelling Catheter - Labs CBC & Chem 7: 02/26/19 05:05 02/26/19 05:02 Labs: Abnormal Lab Results - Last 24 Hours (Table) 02/25/19 02/25/19 02/25/19 Range/Units 11:41 16:52 21:29 WBC (3.8-10.6) k/uL RBC (3.80-5.40) m/uL Hgb (11.4-16.0) gm/dL Hct (34.0-46.0) % Plt Count (150-450) k/uL Neutrophils # (1.3-7.7) k/uL Lymphocytes # (1.0-4.8) k/uL Eosinophils # (0-0.7) k/uL Sodium (137-145) mmol/L BUN (7-17) mg/dL Creatinine (0.52-1.04) mg/dL Glucose (74-99) mg/dL POC Glucose (mg/dL) 138 H 128 H 155 H (75-99) mg/dL Ionized Calcium Bianka (4.5-5.3) mg/dL Triglycerides (<150) mg/dL 02/26/19 02/26/19 02/26/19 Range/Units 05:02 05:05 06:43 WBC 11.4 H (3.8-10.6) k/uL RBC 2.51 L (3.80-5.40) m/uL Hgb 7.5 L (11.4-16.0) gm/dL Hct 23.0 L (34.0-46.0) % Plt Count 712 H (150-450) k/uL Neutrophils # 8.3 H (1.3-7.7) k/uL Lymphocytes # 0.9 L (1.0-4.8) k/uL Eosinophils # 0.9 H (0-0.7) k/uL Sodium 135 L (137-145) mmol/L BUN 57 H (7-17) mg/dL Creatinine 2.23 H (0.52-1.04) mg/dL Glucose 129 H (74-99) mg/dL POC Glucose (mg/dL) 152 H (75-99) mg/dL Ionized Calcium Bianka 5.5 H (4.5-5.3) mg/dL Triglycerides 234 H (<150) mg/dL Microbiology - Last 24 Hours (Table) 02/25/19 08:50 Urine Culture - Preliminary Urine,Voided Assessment and Plan Plan: Assessment: 1. Acute kidney injury secondary to ATN. Renal function stable. Creatinine 2.23 today. 2. Chronic kidney disease stage IV with baseline creatinine near 1.7-1.9 secondary to nephrosclerosis and left renal atrophy. 3. S/p exp lap with sigmoid colectomy and end colostomy 02/12/19. Maintained on TPN. Now has abdominal abscess and is scheduled for drainage today. 4. Neurogenic bladder. Patient performs self catheterizations 4-5 times daily. Now has Murphy. 5. Metabolic acidosis secondary to acute kidney injury. Stable. 6. Hypertension with chronic kidney disease. Controlled. 7. UTI with urine culture positive for Klebsiella and E. coli maintained on antibiotics. 8. Hyponatremia secondary to poor solute intake. Better. 9. A-fib maintained on Lopressor and Cardizem. Plan: 1.5 L free water restriction. Maintain normal saline at 50 mL an hour. Avoid nephrotoxins. Continue to monitor renal function and urine output.
[2019-02-26] MEDS: PIPERACILLIN-TAZOBACTAM 3.375 GM in SODIUM CHLORIDE 0.9% 100 ML IVPB SCH ×3 (10:23→21:10)
--- NOTE | 2019-02-26 11:01 | P.PN ---
<Siobhan Dugan Tiffany - Last Filed: 02/26/19 10:58> Subjective Progress Note Date: 02/26/19 CHIEF COMPLAINT: Abdominal pain HISTORY OF PRESENT ILLNESS: Patient is status post exploratory laparotomy, extensive lysis of adhesions, sigmoid colectomy, and end colostomy on 02/12/19. Patient examined at the bedside. She reports her abdominal pain is tolerable. NG has been discontinued. She denies nausea or vomiting. Remains on 6L O2. Vital signs stable. She is afebrile. WBC 11.4. PHYSICAL EXAM: VITAL SIGNS: Reviewed GENERAL: Well-developed in no acute distress. HEENT: No sclera icterus. Extraocular movements grossly intact. Moist buccal mucosa. Head is atraumatic, normocephalic. Hears conversational speech. No nasal drainage. NECK: Supple without lymphadenopathy. CHEST: Non-labored respirations and equal bilateral excursions. CARDIOVASCULAR: Regular rate with regular rhythm. Palpable 2+ radial pulses. ABDOMEN: Soft. Nondistended. Dressing to abdomen clean dry intact. Ostomy with brown liquid stool noted. MUSCULOSKELETAL: No clubbing or cyanosis. NEUROLOGIC: No focal or lateralizing signs. Cranial nerves II through XII grossly intact. PSYCH: Appropriate affect. Alert and oriented to person, place and time. SKIN: Well perfused. Good skin turgor. ASSESSMENT: 1. Abdominal pain, status post exploratory laparotomy, extensive lysis of adhesions, sigmoid colectomy, and end colostomy 2. Intrapelvic fluid collection PLAN: Continue daily dressing changes. Aquacel silver packing to upper open aspect of incision and gauze packing to lower open aspect of incision Continue PPN May begin clear liquid diet after CT drainage today Patient scheduled for CT-guided drainage of fluid filled collection Nurse practitioner note has been reviewed by physician. Signing provider agrees with the documented findings, assessment, and plan of care. Objective - Vital Signs Vital signs: Vital Signs Temp 97.7 F 02/26/19 08:00 Pulse 73 02/26/19 10:00 Resp 20 02/26/19 10:00 BP 128/63 02/26/19 10:00 Pulse Ox 90 L 02/26/19 10:00 Intake & Output 02/25/19 02/26/19 02/26/19 18:59 06:59 18:59 Intake Total 2455 1500 500 Output Total 1340 820 435 Balance 1115 680 65 Weight 73.8 kg Intake: IV 1425 1500 500 PPN 825 900 300 Piperacillin-Tazobactam 3 100 .375 gm In Sodium Chloride 0.9% 100 ml @ 25 mls/hr IVPB Q12HR [facility] Rx #:[id number] Sodium Chloride 0.9% 1, 500 600 200 000 ml @ 50 mls/hr IV . Q20H [facility] Rx#:[id number] Intake, IV Titration 1030 Amount Sodium Acetate 40 meq 1030 Calcium Gluconate 1 gm In Amino Acid 4.25%-D10w 1, 000 ml @ 75 mls/hr IV .BY DURATION [facility] Rx#: [id number] Output: Urine 1340 720 435 Stool 100 Other: Voiding Method Indwelling Catheter Indwelling Catheter - Labs CBC & Chem 7: 02/26/19 05:05 02/26/19 05:02 Labs: Abnormal Lab Results - Last 24 Hours (Table) 02/25/19 02/25/19 02/25/19 Range/Units 11:41 16:52 21:29 WBC (3.8-10.6) k/uL RBC (3.80-5.40) m/uL Hgb (11.4-16.0) gm/dL Hct (34.0-46.0) % Plt Count (150-450) k/uL Neutrophils # (1.3-7.7) k/uL Lymphocytes # (1.0-4.8) k/uL Eosinophils # (0-0.7) k/uL Sodium (137-145) mmol/L BUN (7-17) mg/dL Creatinine (0.52-1.04) mg/dL Glucose (74-99) mg/dL POC Glucose (mg/dL) 138 H 128 H 155 H (75-99) mg/dL Ionized Calcium Bianka (4.5-5.3) mg/dL Triglycerides (<150) mg/dL 02/26/19 02/26/19 02/26/19 Range/Units 05:02 05:05 06:43 WBC 11.4 H (3.8-10.6) k/uL RBC 2.51 L (3.80-5.40) m/uL Hgb 7.5 L (11.4-16.0) gm/dL Hct 23.0 L (34.0-46.0) % Plt Count 712 H (150-450) k/uL Neutrophils # 8.3 H (1.3-7.7) k/uL Lymphocytes # 0.9 L (1.0-4.8) k/uL Eosinophils # 0.9 H (0-0.7) k/uL Sodium 135 L (137-145) mmol/L BUN 57 H (7-17) mg/dL Creatinine 2.23 H (0.52-1.04) mg/dL Glucose 129 H (74-99) mg/dL POC Glucose (mg/dL) 152 H (75-99) mg/dL Ionized Calcium Bianka 5.5 H (4.5-5.3) mg/dL Triglycerides 234 H (<150) mg/dL Microbiology - Last 24 Hours (Table) 02/25/19 08:50 Urine Culture - Preliminary Urine,Voided <Kiera Morrison - Last Filed: 02/26/19 22:33> Subjective Patient seen and more confused than yesterday. She is on a Fentanyl patch. She is s/p CT guided drainage. Cultures of obtained. Objective - Vital Signs Vital signs: Vital Signs Temp 100.3 F H 02/26/19 20:00 Pulse 64 02/26/19 22:00 Resp 18 02/26/19 22:00 BP 158/71 02/26/19 22:00 Pulse Ox 94 L 02/26/19 22:00 Intake & Output 02/26/19 02/26/19 02/27/19 06:59 18:59 06:59 Intake Total 1500 1525 475 Output Total 820 1440 1055 Balance 680 85 -580 Weight 73.8 kg 73.8 kg Intake: IV 1500 1525 475 PPN 900 825 225 Piperacillin-Tazobactam 3 100 100 .375 gm In Sodium Chloride 0.9% 100 ml @ 25 mls/hr IVPB Q12HR [facility] Rx #:[id number] Sodium Chloride 0.9% 1, 600 600 150 000 ml @ 50 mls/hr IV . Q20H [facility] Rx#:[id number] Output: Drainage 150 150 Left Buttock 150 150 Urine 720 1190 905 Stool 100 100 Other: Voiding Method Indwelling Catheter Indwelling Catheter Indwelling Catheter - Labs CBC & Chem 7: 02/26/19 05:05 02/26/19 05:02 Labs: Abnormal Lab Results - Last 24 Hours (Table) 02/26/19 02/26/19 02/26/19 Range/Units 05:02 05:05 06:43 WBC 11.4 H (3.8-10.6) k/uL RBC 2.51 L (3.80-5.40) m/uL Hgb 7.5 L (11.4-16.0) gm/dL Hct 23.0 L (34.0-46.0) % Plt Count 712 H (150-450) k/uL Neutrophils # 8.3 H (1.3-7.7) k/uL Lymphocytes # 0.9 L (1.0-4.8) k/uL Eosinophils # 0.9 H (0-0.7) k/uL Sodium 135 L (137-145) mmol/L BUN 57 H (7-17) mg/dL Creatinine 2.23 H (0.52-1.04) mg/dL Glucose 129 H (74-99) mg/dL POC Glucose (mg/dL) 152 H (75-99) mg/dL Ionized Calcium Bianka 5.5 H (4.5-5.3) mg/dL Triglycerides 234 H (<150) mg/dL 02/26/19 02/26/19 02/26/19 Range/Units 11:55 16:39 20:26 WBC (3.8-10.6) k/uL RBC (3.80-5.40) m/uL Hgb (11.4-16.0) gm/dL Hct (34.0-46.0) % Plt Count (150-450) k/uL Neutrophils # (1.3-7.7) k/uL Lymphocytes # (1.0-4.8) k/uL Eosinophils # (0-0.7) k/uL Sodium (137-145) mmol/L BUN (7-17) mg/dL Creatinine (0.52-1.04) mg/dL Glucose (74-99) mg/dL POC Glucose (mg/dL) 148 H 147 H 149 H (75-99) mg/dL Ionized Calcium Bianka (4.5-5.3) mg/dL Triglycerides (<150) mg/dL 02/26/19 Range/Units 21:00 WBC (3.8-10.6) k/uL RBC (3.80-5.40) m/uL Hgb (11.4-16.0) gm/dL Hct (34.0-46.0) % Plt Count (150-450) k/uL Neutrophils # (1.3-7.7) k/uL Lymphocytes # (1.0-4.8) k/uL Eosinophils # (0-0.7) k/uL Sodium (137-145) mmol/L BUN (7-17) mg/dL Creatinine (0.52-1.04) mg/dL Glucose (74-99) mg/dL POC Glucose (mg/dL) 148 H (75-99) mg/dL Ionized Calcium Bianka (4.5-5.3) mg/dL Triglycerides (<150) mg/dL Microbiology - Last 24 Hours (Table) 02/25/19 08:50 Urine Culture - Preliminary Urine,Voided Assessment and Plan (1) Diverticulitis with obstruction Current Visit: Yes Status: Acute Code(s): K57.92 - DVTRCLI OF INTEST, PART UNSP, W/O PERF OR ABSCESS W/O BLEED SNOMED Code(s): 341238413 (2) Atrial fibrillation with RVR Current Visit: Yes Status: Acute Code(s): I48.91 - UNSPECIFIED ATRIAL FIBRILLATION SNOMED Code(s): 755327819036025 (3) Stage 3 chronic renal impairment associated with type 2 diabetes mellitus Current Visit: Yes Status: Acute Code(s): E11.22 - TYPE 2 DIABETES MELLITUS W DIABETIC CHRONIC KIDNEY DISEASE; N18.3 - CHRONIC KIDNEY DISEASE, STAGE 3 (MODERATE) SNOMED Code(s): 919277378540 (4) Diabetes type 2, uncontrolled Current Visit: Yes Status: Acute Code(s): E11.65 - TYPE 2 DIABETES MELLITUS WITH HYPERGLYCEMIA SNOMED Code(s): 139334938 (5) Leukocytosis Current Visit: Yes Status: Acute Code(s): D72.829 - ELEVATED WHITE BLOOD CELL COUNT, UNSPECIFIED SNOMED Code(s): 565535997 (6) Colostomy status Current Visit: Yes Status: Acute Code(s): Z93.3 - COLOSTOMY STATUS SNOMED Code(s): 509675558
[2019-02-26] MEDS: METOPROLOL TARTRATE 50 MG TAB PO SCH ×3 (11:12→21:12)
[2019-02-26] MEDS: METOPROLOL TARTRATE 5 MG/5 ML VIAL IVP SCH ×3 (11:12→20:56)
[2019-02-26] MEDS: DILTIAZEM ORAL 30 MG TAB PO SCH ×3 (11:12→21:11)
[2019-02-26 11:56] LABS: Glucose,Whole Blood 148 mg/dL (75-99)
--- NOTE | 2019-02-26 14:15 | PN ---
PROGRESS NOTE DATE OF SERVICE: 02/26/2019 NEW DATA: She is 5 foot, 4 inches and she is a 73.8 kg, BSA 1.79 m2, BMI 27.9 kg/m2. ALLERGY: Unknown. Patient is seen, evaluated in ICU. Discussed with her [id number] and patient herself and the nursing staff for her ICU. The team indicating that she has confusion and disorientation which is changing of mental status and with trying to get away from the narcotic. However, I do not believe the fentanyl causing that and she is going for procedure this afternoon to get the fluid collection in the pelvis to clarify the issue of sepsis versus hematoma and blood. On examination, patient is conscious, she is alert. She is unable to eat and she is TPN; however, the discussion significantly regarding using the Dobhoff tube and start treatment with the feeding through the Dobhoff. However, the other side effect has been entertained, which the patient has already distention of the abdomen today, tympanitic on percussion and the question is Dobhoff tube placement and feeding it could be accumulated in the stomach and could be aspiration for the lung, headed to if the abdomen distended more and more with not presence of able to clarify the gas of the abdominal distention in the abdomen. Her current temperature 97.9 axillary and she had the pulse 64, now currently sinus rhythm and yesterday was atrial fibrillation. Respiratory rate is 17 and blood pressure 148/87 with a mean 107. Her saturation has been significantly improved with 10 L high-flow. However, patient with the procedure will be laying down prone on her abdomen and with the consideration she may get short of breath and I stated that the possibility of using the BiPAP or using high-flow for the short time of the procedure only. On her underlying laboratory was indicating that today her white count is 11.4 with the hemoglobin 7.5, and she has significant hematuria and I discussed it with the nurse to call the Urology because it appeared to be that the catheter needs to be adjusted as the Murphy catheter as well as the presence of distention and hydroureter and hydronephrosis and yesterday they did fall did flushing of the Murphy catheter to get the clots away. and also the question for the Critical Care is time to give patient blood transfusion or not or have to wait until to be below than 7 and the patient had surgical treatment and laparotomy and definitely hematuria and we would not approach that without the consultation or re-consultation of the Urology. Her CBG with the TPN has been fairly well controlled with subcu heparin. Her ionized calcium was 5.5 with the TPN and her triglyceride 234. So, the consideration now is with the examination as mentioned, the chest was aerated. She had atelectasis on the bases. The heart was regular sinus on this visit and with the controlling of the atrial fibrillation, the abdomen is distended and positive bowel sounds, but distension is tympanitic on percussion and the colostomy does have stool. We encouraged the patient for eating as well and the extremities no edema and positive pulses. ASSESSMENT AND PLAN: Will proceed further for the obtaining the fluid and to check it for pus or changing the treatment with the antibiotic as well as the culture of the urine and she had infected urine as well and I did call the for culture and sensitivity, result IS pending AND the plan continue in the ICU. ELANA / TIFFN: [id number] /
--- NOTE | 2019-02-26 15:27 | CT ---
EXAMINATION TYPE: CT guided abscess drainage DATE OF EXAM: 02/26/2019 COMPARISON: 02/23/2019 HISTORY: Request for abscess drainage catheter placement within the pelvis CT DLP: 1017 mGycm The procedure is discussed with the patient, the risks, complications, benefits and alternatives, wer e discussed and any questions were answered. Informed consent was obtained. The patient is placed p leda on the CT table, prepped and draped in the usual sterile fashion. Utilizing a 22-gauge Chiba needle access into the pelvic fluid collection was achieved there is place ment of a guidewire. There is conversion to an O.035 system and subsequent serial dilation to 8 Frenc h with placement 8 Romansh drainage catheter. 20 cc of serous fluid was removed and sent to pathology for analysis. All elements of maximal barrier technique were utilized. The patient remained stable throughout the procedure with no immediate postprocedural complication. IMPRESSION: 1. Successful CT guided fine drainage tube insertion.
--- NOTE | 2019-02-26 16:20 | XR ---
EXAMINATION TYPE: XR chest 1V portable DATE OF EXAM: 02/26/2019 COMPARISON: 02/26/2019 HISTORY: Dobbhoff tube placement TECHNIQUE: Single frontal view of the chest is obtained. FINDINGS: Dobbhoff tube is seen in the left upper quadrant likely within the gastric fundus. Right-s ided central line is seen with tip overlying the SVC. Bilateral consolidation and pleural effusion. N odular appearing density in the right midlung is stable, neoplastic process not excluded. Arthropathy of the shoulders. No pneumothorax. IMPRESSION: 1. Dobbhoff tube appears to be in left upper quadrant likely within the stomach. 2. Bilateral consolidation and pleural effusion stable. Correlate for pneumonia versus CHF.
[2019-02-26 16:37] LABS: Appearance,BF Hazy; Color,BF Orange; Nucleated Cells, Body Fluid 345 /uL; RBC, Body Fluid 55 /uL
[2019-02-26 16:41] LABS: Glucose,Whole Blood 147 mg/dL (75-99)
[2019-02-26 16:56] LABS: Mononuclear WBC,Body Fluid 10 %; Polynuclear WBC,Body Fluid 90 %; Total Cells Counted,Body Fluid 100
[2019-02-26] MEDS: FAT EMULSION 20% 250 ML IV SCH (17:25)
[2019-02-26] MEDS: HEPARIN SOD,PORK IN 0.45% NACL 25,000 UNIT in 0.45% NACL 1 250ML.BAG IV SCH (18:56)
[2019-02-26] MEDS: MVI, ADULT NO.4 WITH VIT K 10 ML, TRACE (CONC-1ML/DOSE) 1 ML, SODIUM ACETATE 40 MEQ, CA... IV SCH ×5 (18:57)
--- NOTE | 2019-02-26 20:12 | PN ---
PROGRESS NOTE DATE OF SERVICE: 02/26/2019 REASON FOR FOLLOWUP: Possible abdominal abscess in patient with diverticulitis. INTERVAL HISTORY: The patient is currently afebrile. The patient is breathing comfortably. The patient is status post CT-guided drainage of abdominal fluid with a drainage catheter. The patient denies having any chest pain. Some shortness of breath. No significant cough or sputum production and no diarrhea. PHYSICAL EXAMINATION: Blood pressure 137/77 with a pulse of 65, temperature 97.6. She is 98% on high-flow oxygen. General description is an elderly female up in the bed in no distress. Respiratory system: Unlabored breathing, decreased breath sounds in the bases, no wheeze. Heart S1, S2. Regular rate and rhythm. Abdomen soft, no tenderness. Midline incision looks clean with no cellulitis. The abdominal drainage fluid did have more of a straw colored fluid ( ). LAB: White count of 11.4, creatinine is 2.23. DIAGNOSTIC IMPRESSION AND PLAN: Patient with diverticulitis, status post diverting colostomy. The patient did have abdominal fluid collection with concern for possible abscess status post CT-guided drainage. Fluid looked clear. Will await for the culture to finalize. Continue the patient on Zosyn and monitor clinical course closely. MMODL / IJN: [id number] /
[2019-02-26 20:28] LABS: Glucose,Whole Blood 149 mg/dL (75-99)
[2019-02-26 21:10] LABS: Glucose,Whole Blood 148 mg/dL (75-99)
[2019-02-26] MEDS: ATORVASTATIN 10 MG TAB PO SCH (21:11)
[2019-02-26] MEDS: DULoxetine HCL 60 MG CAPSULE.DR PO SCH (21:11)
[2019-02-27 06:21] LABS: HCT 25.1 % (34.0-46.0); MCH 28.2 pg (25.0-35.0); MCHC 31.7 g/dL (31.0-37.0); MCV 89.1 fL (80.0-100.0); Mean Platelet Volume 8.2; Platelet Count 658 k/uL (150-450); RBC 2.82 m/uL (3.80-5.40); RDW 14.5 % (11.5-15.5); WBC 9.8 k/uL (3.8-10.6)
[2019-02-27 06:27] LABS: Calcium 9.2 mg/dL (8.4-10.2); Magnesium 1.8 mg/dL (1.6-2.3); Phosphorus 2.8 mg/dL (2.5-4.5); Potassium 3.5 mmol/L (3.5-5.1)
[2019-02-27 06:49] LABS: Band Neutrophils % 2 %; Eosinophils # (M) 0.78 k/uL (0-0.7); Lymphocytes # (M) 1.18 k/uL (1.0-4.8); Monocytes # (M) 1.08 k/uL (0-1.0); Neutrophils % (M) 67 %; Nucleated Red Blood Cells 0 /100 WBC (0-0); Total Cells Counted 100
[2019-02-27 06:51] LABS: Glucose,Whole Blood 148 mg/dL (75-99)
[2019-02-27] MEDS: INSULIN ASPART (NovoLOG) 100 UNIT/ML VIAL SQ SCH ×4 (06:56→21:30)
[2019-02-27] MEDS ORDERED: POTASSIUM CHLORIDE ER 20 MEQ TAB.ER PO ONE (07:00)
--- NOTE | 2019-02-27 08:13 | P.PN ---
Subjective Progress Note Date: 02/27/19 The patients urine has cleared When medically stable she can resume cic Will need fu with dr mart Objective - Vital Signs Vital signs: Vital Signs Temp 98.3 F 02/27/19 04:00 Pulse 69 02/27/19 07:00 Resp 17 02/27/19 07:00 BP 156/77 02/27/19 07:00 Pulse Ox 93 L 02/27/19 07:00 Intake & Output 02/26/19 02/27/19 02/27/19 18:59 06:59 18:59 Intake Total 1525 1480 Output Total 1440 2150 Balance 85 -670 Weight 73.8 kg 76.1 kg Intake: IV 1525 1480 PPN 825 780 Piperacillin-Tazobactam 3 100 100 .375 gm In Sodium Chloride 0.9% 100 ml @ 25 mls/hr IVPB Q12HR [facility] Rx #:[id number] Sodium Chloride 0.9% 1, 600 600 000 ml @ 50 mls/hr IV . Q20H [facility] Rx#:[id number] Output: Drainage 150 Left Buttock 150 Urine 1190 2150 Stool 100 Other: Voiding Method Indwelling Catheter Indwelling Catheter - Labs CBC & Chem 7: 02/27/19 05:58 02/27/19 05:58 Labs: Abnormal Lab Results - Last 24 Hours (Table) 02/26/19 02/26/19 02/26/19 Range/Units 11:55 16:39 20:26 RBC (3.80-5.40) m/uL Hgb (11.4-16.0) gm/dL Hct (34.0-46.0) % Plt Count (150-450) k/uL Monocytes # (Manual) (0-1.0) k/uL Eosinophils # (Manual) (0-0.7) k/uL Sodium (137-145) mmol/L BUN (7-17) mg/dL Creatinine (0.52-1.04) mg/dL Glucose (74-99) mg/dL POC Glucose (mg/dL) 148 H 147 H 149 H (75-99) mg/dL 02/26/19 02/27/19 02/27/19 Range/Units 21:00 05:58 05:58 RBC 2.82 L (3.80-5.40) m/uL Hgb 8.0 L (11.4-16.0) gm/dL Hct 25.1 L (34.0-46.0) % Plt Count 658 H (150-450) k/uL Monocytes # (Manual) 1.08 H (0-1.0) k/uL Eosinophils # (Manual) 0.78 H (0-0.7) k/uL Sodium 136 L (137-145) mmol/L BUN 54 H (7-17) mg/dL Creatinine 1.96 H (0.52-1.04) mg/dL Glucose 150 H (74-99) mg/dL POC Glucose (mg/dL) 148 H (75-99) mg/dL 02/27/19 Range/Units 06:50 RBC (3.80-5.40) m/uL Hgb (11.4-16.0) gm/dL Hct (34.0-46.0) % Plt Count (150-450) k/uL Monocytes # (Manual) (0-1.0) k/uL Eosinophils # (Manual) (0-0.7) k/uL Sodium (137-145) mmol/L BUN (7-17) mg/dL Creatinine (0.52-1.04) mg/dL Glucose (74-99) mg/dL POC Glucose (mg/dL) 148 H (75-99) mg/dL Microbiology - Last 24 Hours (Table) 02/26/19 15:15 Gram Stain - Preliminary Aspirate Body Fluid Culture - Preliminary 02/26/19 15:15 Fungal Culture - Preliminary Other - Other 02/26/19 15:15 Anaerobic Culture - Preliminary Other - Other 02/25/19 08:50 Urine Culture - Preliminary Urine,Voided
--- NOTE | 2019-02-27 08:14 | XR ---
EXAMINATION TYPE: XR chest 1V portable DATE OF EXAM: 02/27/2019 Comparison: 02/26/2019 Clinical History: 83 year-old female shortness of breath, dyspnea Findings: Right PICC tip at the cavoatrial junction. Continued elevation right hemidiaphragm. Dobbhoff tube is present. Distal aspect beyond the [id number]. Heart remains mildly enlarged. Continued small effus ions with bibasilar opacities. Very tortuous/ectatic thoracic aorta with atherosclerotic arch calcifi cations. Impression: 1. Continued cardiomegaly with small effusions and prominent lower lung atelectasis and/or consolidat ion. 2. Continued elevation of right hemidiaphragm. 3. Similar tortuous versus ectatic thoracic aorta.
[2019-02-27] MEDS: METOPROLOL TARTRATE 5 MG/5 ML VIAL IVP SCH ×3 (08:53→22:35)
[2019-02-27] MEDS: METOPROLOL TARTRATE 50 MG TAB PO SCH ×3 (09:15→22:36)
[2019-02-27] MEDS: DILTIAZEM ORAL 30 MG TAB PO SCH (09:15)
[2019-02-27] MEDS: PIPERACILLIN-TAZOBACTAM 3.375 GM in SODIUM CHLORIDE 0.9% 100 ML IVPB SCH ×2 (09:15→21:28)
--- NOTE | 2019-02-27 09:17 | PCN ---
PROCEDURE NOTE PROCEDURE: Placement of a Dobhoff tube. PREOPERATIVE DIAGNOSIS: Poor nutrition. POSTOPERATIVE DIAGNOSIS: Poor nutrition. OPERATORS: Dr. Llanes, Dr. Heaton and Chadd Kaur. A standard Dobhoff tube was inserted through the left nostril. It passed through the left nasopharynx. It was thought to enter into the esophagus. The placement of the tube will be checked by a stat chest x-ray, which has been ordered. Additional recommendations and suggestions are forthcoming. The tube was secured. There was no immediate complication. She was stable throughout the procedure. MMODL / IJN: [id number] /
--- NOTE | 2019-02-27 09:51 | P.PN ---
Subjective Progress Note Date: 02/27/19 This 82-year-old female with history of hypertension and diastolic congestive heart failure and paroxysmal atrial fibrillation had a colectomy laparoscopically. Patient is not complaining of abdominal pain but complains of shortness of breath. She is in atrial fibrillation with controlled and corresponds. Her blood pressure is about 110. Patient is on Catapres along with metoprolol. She is also on Eliquis. I will increase the dose of the metoprolol and the heart rate is controlled, we'll may discontinue Cardizem. Lungs examination shows diminished breath sounds at bases. Heart is irregular. We'll follow the 02/17/2019: This patient is to intensive care unit. Patient still complaining of abdominal discomfort. Has been coughing and having some dysphagia difficulties. Patient remains in atrial fibrillation with controlled ventricular response. She is on metoprolol and also anti-cognition therapy with Eliquis 2.5 mg by mouth twice a day. Patient is status post abdominal surgery with removal of significant adhesions and also colectomy and colostomy. She is progressing slowly. Request pulmonary toilet. We'll continue current medical therapy. We will follow. 02/18/2019:. Patient claims she is feeling slightly better. Patient is in atrial fibrillation with moderate to rapid ventricle response. I'm going to increase the dose of the metoprolol. Patient is on anticoagulation therapy. However, patient is having blood in the urine. Urology is could evaluate the patient. We'll going to hold anti-cognition therapy temporarily. Rest of the management as per the surgeon's 02/19/2019: Patient's appear to be slightly better. Denies any chest pain or shortness of breath. Patient heart rate is in the 120s to 130s. She is on metoprolol 50 mg by mouth 3 times a day. She is not on IV Cardizem. She is on anticoagulation therapy. I'm going to add oral Cardizem 60 mg by mouth 3 times a day. Lungs appeared to be relatively clear. Heart is regular. We'll follow 02/27/2019: This patient is confused. Alert and doesn't appear to be in acute distress. Patient had drainage of intra-abdominal abscess. Yesterday. She is in sinus rhythm. Tolerating oral metoprolol. Continue current medical therapy. We'll resume Eliquis. Objective - Vital Signs Vital signs: Vital Signs Temp 99 F 02/27/19 08:00 Pulse 68 02/27/19 09:00 Resp 18 02/27/19 09:00 BP 177/78 02/27/19 09:00 Pulse Ox 92 L 02/27/19 09:00 Intake & Output 02/26/19 02/27/19 02/27/19 18:59 06:59 18:59 Intake Total 1525 1480 220 Output Total 1440 2150 250 Balance 85 -670 -30 Weight 73.8 kg 76.1 kg Intake: IV 1525 1480 220 0.9 Normal saline 100 PPN 825 780 120 Piperacillin-Tazobactam 3 100 100 .375 gm In Sodium Chloride 0.9% 100 ml @ 25 mls/hr IVPB Q12HR [facility] Rx #:[id number] Sodium Chloride 0.9% 1, 600 600 000 ml @ 50 mls/hr IV . Q20H [facility] Rx#:[id number] Output: Drainage 150 Left Buttock 150 Urine 1190 2150 250 Stool 100 Other: Voiding Method Indwelling Catheter Indwelling Catheter - Exam GENERAL EXAM: Patient is alert but confused HEENT: Normocephalic. Normal reaction of pupils, equal size, normal range of extraocular motion. No erythema or exudates in the throat. NECK: No masses, no nuchal rigidity. CHEST: No chest wall deformity. LUNGS: Diminished breath sounds at bases HEART: S1 and S2 normal with no audible mumurs or gallops. Regular rhythm, femorals equal on both sides.. ABDOMEN: Postsurgical SKIN: No rashes CENTRAL NERVOUS SYSTEM: No focal deficits. EXTREMITIES: No cyanosis, clubbing or edema. - Labs CBC & Chem 7: 02/27/19 05:58 02/27/19 05:58 Labs: Abnormal Lab Results - Last 24 Hours (Table) 02/26/19 02/26/19 02/26/19 Range/Units 11:55 16:39 20:26 RBC (3.80-5.40) m/uL Hgb (11.4-16.0) gm/dL Hct (34.0-46.0) % Plt Count (150-450) k/uL Monocytes # (Manual) (0-1.0) k/uL Eosinophils # (Manual) (0-0.7) k/uL Sodium (137-145) mmol/L BUN (7-17) mg/dL Creatinine (0.52-1.04) mg/dL Glucose (74-99) mg/dL POC Glucose (mg/dL) 148 H 147 H 149 H (75-99) mg/dL 02/26/19 02/27/19 02/27/19 Range/Units 21:00 05:58 05:58 RBC 2.82 L (3.80-5.40) m/uL Hgb 8.0 L (11.4-16.0) gm/dL Hct 25.1 L (34.0-46.0) % Plt Count 658 H (150-450) k/uL Monocytes # (Manual) 1.08 H (0-1.0) k/uL Eosinophils # (Manual) 0.78 H (0-0.7) k/uL Sodium 136 L (137-145) mmol/L BUN 54 H (7-17) mg/dL Creatinine 1.96 H (0.52-1.04) mg/dL Glucose 150 H (74-99) mg/dL POC Glucose (mg/dL) 148 H (75-99) mg/dL 02/27/19 Range/Units 06:50 RBC (3.80-5.40) m/uL Hgb (11.4-16.0) gm/dL Hct (34.0-46.0) % Plt Count (150-450) k/uL Monocytes # (Manual) (0-1.0) k/uL Eosinophils # (Manual) (0-0.7) k/uL Sodium (137-145) mmol/L BUN (7-17) mg/dL Creatinine (0.52-1.04) mg/dL Glucose (74-99) mg/dL POC Glucose (mg/dL) 148 H (75-99) mg/dL Microbiology - Last 24 Hours (Table) 02/26/19 15:15 Gram Stain - Preliminary Aspirate Body Fluid Culture - Preliminary 02/26/19 15:15 Fungal Culture - Preliminary Other - Other 02/26/19 15:15 Anaerobic Culture - Preliminary Other - Other 02/25/19 08:50 Urine Culture - Preliminary Urine,Voided Assessment and Plan (1) Essential hypertension Current Visit: Yes Status: Acute Code(s): I10 - ESSENTIAL (PRIMARY) HYPERTENSION SNOMED Code(s): 68885568 (2) Partial small bowel obstruction Current Visit: Yes Status: Acute Code(s): K56.600 - PARTIAL INTESTINAL OBSTRUCTION, UNSPECIFIED TO CAUSE SNOMED Code(s): 030868494 (3) Paroxysmal atrial fibrillation Current Visit: Yes Status: Acute Code(s): I48.0 - PAROXYSMAL ATRIAL FI BRILLATION SNOMED Code(s): 200286518 (4) Diastolic CHF Current Visit: Yes Status: Acute Code(s): I50.30 - UNSPECIFIED DIASTOLIC (CONGESTIVE) HEART FAILURE SNOMED Code(s): 460874608 Plan: Continue by mouth metoprolol. Resume anticoagulation
--- NOTE | 2019-02-27 09:59 | P.PN ---
Subjective Progress Note Date: 02/27/19 Principal diagnosis: Acute bowel obstruction status post laparotomy with extensive lysis of adhesions and sigmoid colectomy and end colostomy postoperative day 5 This is a pleasant 83-year-old female patient admitted back on 02/07/2019 with complaints of constipation and abdominal discomfort. She had not moved her bowels for several days prior. Abdominal x-rays did show evidence of constipation. Fleet enema and MiraLAX at home were unsuccessful. She was subsequently admitted for abdominal bloating and discomfort. She was found to have a colon obstruction and yesterday had undergone exposure laparotomy, extensive lysis of adhesions, sigmoid colectomy, end colostomy done by Dr. Miller. She remained hypoxic postoperatively and was placed on BiPAP with an FiO2 of 80%. We're consulted for the same. No chest x-ray was done. She is seen today on the selective care unit. She is currently awake and alert in no acute distress. She is having some ongoing abdominal discomfort. She has a midline incision with maggy intact and a colostomy with stool present. She is currently on 6 L high flow nasal cannula and maintaining O2 saturation in the mid 90s. She denies any worsening shortness of breath, cough or congestion. Urine culture was positive for Klebsiella pneumoniae and E coli. Blood cultures had revealed no growth. White count 12.8. Hemoglobin 11.6. Sodium 148. Potassium 3.9. Creatinine 2.20. She has D5.45 running at 100 ML's per hour. She is currently on ceftriaxone and Flagyl. PPN and lipids have been ordered. The patient was having issues with atrial fibrillation preoperatively and was initially on a heparin drip. The plan from cardiology is to initiate Eliquis once cleared surgically. On today's evaluation of 02/14/2019 I was asked even with this patient and the patient was found to be more lethargic and short of breath. I the patient did she is relatively comfortable on oxygen at 4 L. Nevertheless, she states that she wants to and she is unable to take this ongoing treatment any further. In terms of her cardiac condition, she is in atrial fibrillation with rapid ventricular response and a current heart rate is around 120-140. She has a Murphy catheter urine output is in order of 30 mL an hour. She had a chest x-ray that showed increased opacification of the lung bases. Ultrasound of the chest was done that showed small pockets and based on the ultrasound these markers were not and minimal 4 thoracentesis. She is on Diprivan running at the rate of 75 mL an hour. She is also on IV fluids running at 75 mL an hour of normal saline. The patient has a positive fluid balance of 1.1 L. She has a creatinin e of 2.4 with a mean of 34. ABCDs not done this morning. She has a positive output and her colostomy bag. The surgical wound site is dry clean and intact. She is afebrile for now. on 02/16/2016, the patient is transferred to the intensive care unit. The patient's oxygen requirements went up yesterday and she is currently on15 L of oxygen by nasal cannula. I opted to bring her down to the ICU. The ultrasound of the chest was not conclusive in terms of fluid and based on that I ordered a CAT scan of the chest that was done without contrast and the CAT scan showed worsening atelectatic changes in lung bases, pneumonia cannot be completely excluded. The pleural effusions were very tiny and there were not and the blood for thoracentesis. Based on that, no intervention was done. Currently she is awake and alert. She is on a combination of IV Rocephin and Flagyl.er white cell count came up to 18. Her creatinine is up to 2.1. Creatinine is stable for now. The lactic acid level was low at 1. She is awake. She is alert. The colostomy is functioning and she has adequate output at this point in time.The patient still on TPN and were going to initiate someclear liquid diet today. Reevaluated today on 02/16/2019, patient remains in the ICU, O2 saturation is marginal, still requiring a high flow nasal cannula at 15 L/m, chest x-ray shows significant airspace disease and atelectasis with consolidation at the bases bilaterally right more so than left, hence I recommended that we use intermittently BiPAP with IPAP of 12 and EPAP of 4. Continues to have leukocytosis with WBC count of 14.5, hemoglobin is 10.1 lites are normal BUN is 41 creatinine 2.01. Close to her baseline since admission. Chest x-ray is quite concerning to me, and CT of the chest was also reviewed, patient has significant bibasilar consolidation and air bronchograms noted in both lungs bilaterally more so in the right lower lobe. On 02/17/2019 patient seen in follow-up in the intensive care unit, she is off BiPAP support currently, she is on 15 L, and her pulse ox is 92-94%, either tachycardic on a monitor, hemodynamically patient is stable, she states she feels short of breath, she has a congested cough, at times she is able to produce small amount of yellowish sputum, lung sounds are positive for rhonchi, and some wheezing, urine culture was positive for Klebsiella pneumonia and E. c rema, blood culture has shown no growth, patient's antibiotics have been simplified and currently patient is on Zosyn. White count is trending down, it is 13.8 on today's labs, hemoglobin is 10.2, sodium was 135, dorsiflexors were unremarkable, B1 is 41 creatinine is 1.94, profile is slightly improved, incentive spirometry effort is poor, and patient is only able to achieve 500 on the incentive spirometer today. Patient continues to be nothing by mouth, she continues on TPN, she was started on promotility agent, in the form of Reglan. Was no output from her ostomy overnight. Surgery is following. On 02/23/2019 patient was seen in follow-up in the intensive care unit. This is postoperative day #11, status post exploratory laparotomy, and extensive lysis of adhesions, sigmoid colectomy and colostomy for acute bowel obstruction. She is awake and alert, does not appear to be in any acute distress, still requiring high flow oxygen, to 15 L currently, her pulse ox is 97%, we will try to wean it down, she's been afebrile, she is however in A. fib RVR with a rate of 120-140, currently on oral metoprolol for rate control, she is on Lopressor 50 mg 3 times daily, is on IV antibiotics, no form of Zosyn, urine culture showed Klebsiella pneumonia and E. coli, susceptible to Zosyn. Hemodynamically she is stable, there have been no fevers, his labs have been reviewed, showing white blood cell count of 16.2, hemoglobin of 8.7, platelet count of 721, sodium is 133, potassium is 5.0, CO2 is 21, BUN is 56, creatinine is 2.17. Today's chest x-ray has been reviewed during patchy bibasilar opacities , low lung volumes, persistent trace pleural effusions, and atelectasis. Mid abdominal incision clean dry and intact, maggy are intact, left abdomen colostomy is with liquid stool, bowel sounds are present. Patient remains on TPN for supplementation of nutrition, and patient is also on the chopped dysphagia 3 diet with 1500 mL fluid restriction. On 02/24/2019 patient seen in follow-up in the intensive care unit, she is resting comfortably in bed, this is postop day 12 status post exploratory laparotomy, and extensive lysis of adhesions, sigmoid colectomy and colostomy for acute bowel obstruction. Yesterday patient had a CT of abdomen and pelvis which revealed a large discrete fluid collection in the pelvis between the rectum and the urinary bladder that could be related to an abscess. Interventional radiology has been consulted for possible drainage of this abscess, however patient has been on Eliquis, and IR will not be able to proceed with the procedure for about 48 hours. Patient denies abdominal discomfort, NG tube has been inserted, and her about 300-400 mL of brownish colored output. Denies any worsening dyspnea, she needs a lot of encouragement to work with the incentive spirometer, and she is only achieving 250-500 mL on it today. Remains in A. fib but today's rate is better controlled, oral diltiazem has been added in addition to metoprolol. Hemodynamically stable. Patient is Zosyn for empiric antibiotic coverage, she's been afebrile, today's labs have been reviewed, showing white blood cell count of 14.0, hemoglobin of 7.7, serum sodium is 132, the rest of the electrolytes were within normal limits, BUN is 63 and creatinine is 2.4, chest x-ray today shows congestive heart failure with pleural effusions. On 02/26/2019 patient is seen in follow-up in the intensive care unit, she is awake and alert, but only oriented to person, confused, but appears to be in no acute distress, FiO2 is down to 6 L per high flow nasal cannula a pulse ox of 90, denies any respiratory distress, lung sounds are clear, diminished at the bases, remains nothing by mouth, abdomen is tender to palpation, but no acute distress, NGT has been discontinued. Patient has positive bowel sounds. Heparin infusion is on hold, the possibility of a cutaneous drainage of intra- abdominal abscess. Based chest x-ray has been reviewed and showing a right PICC line in the right jugular vein, we will reconsult interventional radiology for repositioning of the PICC line, and trace pleural effusions and bibasilar opacities that may represent atelectasis or pneumonia. Antibiotic coverage in the form of Zosyn, patient has been afebrile. Colostomy is functioning, making liquid brown stool. On 02/27/2019 patient is seen in follow-up in the intensive care unit, she is pleasantly confused, she has a mine safety manager at the bedside to prevent her from removing her indwelling catheters. FiO2 down to 4 L and her pulse ox is 92-93%, hemodynamically patient is stable, low-grade fever this morning, no evidence of any distress, denies any abdominal pain, her colostomy is functioning, putting out liquid brown stool, yesterday patient had a percutaneous drain put in for drainage of intra-abdominal abscess, there has been 150 mL of serosanguineous drainage from the tube in the last 24 hours. Hemodynamically she remains stable, point normal saline infusing at a rate of 50 ML per hour, TPN is at 60, yesterday we inserted a Dobbhoff feeding tube for supplementation of her nutrition, patient's appetite remains very poor, patient is practically refusing all meals. Patient will be reinitiated on her oral intake regulation by cardiology. Patient had a low-grade fever with a T-max 100.3F yesterday. Zosyn for antibiotic coverage continues, abscess drainage was sent for culture and is pending at this time. ID service is following. Today's chest x-ray has been reviewed showing prominent lower lung atelectasis and/or consolidation. And continued elevation of right hemidiaphragm. Objective - Vital Signs Vital signs: Vital Signs Temp 99 F 02/27/19 08:00 Pulse 68 02/27/19 09:00 Resp 18 02/27/19 09:00 BP 177/78 02/27/19 09:00 Pulse Ox 92 L 02/27/19 09:00 Intake & Output 02/26/19 02/27/19 02/27/19 18:59 06:59 18:59 Intake Total 1525 1480 220 Output Total 1440 2150 250 Balance 85 -670 -30 Weight 73.8 kg 76.1 kg Intake: IV 1525 1480 220 0.9 Normal saline 100 PPN 825 780 120 Piperacillin-Tazobactam 3 100 100 .375 gm In Sodium Chloride 0.9% 100 ml @ 25 mls/hr IVPB Q12HR [facility] Rx #:[id number] Sodium Chloride 0.9% 1, 600 600 000 ml @ 50 mls/hr IV . Q20H [facility] Rx#:[id number] Output: Drainage 150 Left Buttock 150 Urine 1190 2150 250 Stool 100 Other: Voiding Method Indwelling Catheter Indwelling Catheter - Exam GENERAL EXAM: Alert, pleasant, 83-year-old white female, dyspneic with co nversation, she is on 4 L per high flow nasal cannula, and her pulse ox is 93%, comfortable in no apparent distress. HEAD: Normocephalic/atraumatic. EYES: Normal reaction of pupils, equal size. Conjunctiva pink, sclera white. NOSE: Clear with pink turbinates. THROAT: No erythema or exudates. NECK: No masses, no JVD, no thyroid enlargement, no adenopathy. CHEST: No chest wall deformity. Symmetrical expansion. LUNGS: Equal air entry with mild rhonchi, diminished breath sounds CVS: Irregular rate and rhythm, normal S1 and S2, no gallops, no murmurs, no rubs ABDOMEN: Soft, nontender. No hepatosplenomegaly, normal bowel sounds, no guarding or rigidity. Midline incision with maggy intact, colostomy with liquid yellow output. Continue straining on the left side with drainage of serosanguineous output EXTREMITIES: No clubbing, no edema, no cyanosis, 2+ pulses and upper and lower extremities. MUSCULOSKELETAL: Muscle strength and tone normal. SPINE: No scoliosis or deformity SKIN: No rashes CENTRAL NERVOUS SYSTEM: Alert and oriented -1. No focal deficits, tone is normal in all 4 extremities. PSYCHIATRIC: Alert and oriented -1. Appropriate affect. Intact judgment and insight. - Labs CBC & Chem 7: 02/27/19 05:58 02/27/19 05:58 Labs: Abnormal Lab Results - Last 24 Hours (Table) 02/26/19 02/26/19 02/26/19 Range/Units 11:55 16:39 20:26 RBC (3.80-5.40) m/uL Hgb (11.4-16.0) gm/dL Hct (34.0-46.0) % Plt Count (150-450) k/uL Monocytes # (Manual) (0-1.0) k/uL Eosinophils # (Manual) (0-0.7) k/uL Sodium (137-145) mmol/L BUN (7-17) mg/dL Creatinine (0.52-1.04) mg/dL Glucose (74-99) mg/dL POC Glucose (mg/dL) 148 H 147 H 149 H (75-99) mg/dL 02/26/19 02/27/19 02/27/19 Range/Units 21:00 05:58 05:58 RBC 2.82 L (3.80-5.40) m/uL Hgb 8.0 L (11.4-16.0) gm/dL Hct 25.1 L (34.0-46.0) % Plt Count 658 H (150-450) k/uL Monocytes # (Manual) 1.08 H (0-1.0) k/uL Eosinophils # (Manual) 0.78 H (0-0.7) k/uL Sodium 136 L (137-145) mmol/L BUN 54 H (7-17) mg/dL Creatinine 1.96 H (0.52-1.04) mg/dL Glucose 150 H (74-99) mg/dL POC Glucose (mg/dL) 148 H (75-99) mg/dL 02/27/19 Range/Units 06:50 RBC (3.80-5.40) m/uL Hgb (11.4-16.0) gm/dL Hct (34.0-46.0) % Plt Count (150-450) k/uL Monocytes # (Manual) (0-1.0) k/uL Eosinophils # (Manual) (0-0.7) k/uL Sodium (137-145) mmol/L BUN (7-17) mg/dL Creatinine (0.52-1.04) mg/dL Glucose (74-99) mg/dL POC Glucose (mg/dL) 148 H (75-99) mg/dL Microbiology - Last 24 Hours (Table) 02/26/19 15:15 Gram Stain - Preliminary Aspirate Body Fluid Culture - Preliminary 02/26/19 15:15 Fungal Culture - Preliminary Other - Other 02/26/19 15:15 Anaerobic Culture - Preliminary Other - Other 02/25/19 08:50 Urine Culture - Preliminary Urine,Voided Assessment and Plan Plan: Assessment: #1. Acute bowel obstruction, status post exploratory laparotomy, extensive ly sis of adhesions, sigmoid colectomy, and colostomy, postoperative day 15 #2. Large fluid collection in the pelvis could be related to an abscess, interventional radiology has been consulted for drainage, patient has a percutaneous drain for drainage of abscess, cultures are pending #3. Bilateral hydronephrosis seen on the CT of the abdomen and pelvis #4. Acute hypoxic respiratory failure suspect aspiration pneumonia, and postoperative atelectasis #5. Acute urinary tract infection secondary to Klebsiella pneumonia and E. coli, susceptible to Zosyn which the patient is currently on #6. A. fib with RVR, on oral metoprolol for rate control, and Eliquis #7. Chronic atrial fibrillation #8. Benign essential hypertension #9. History of hyperlipidemia #10. Acute on chronic renal failure patient has chronic kidney disease stage III at baseline Plan: Continue weaning FiO2, maintain aspiration precautions, Doppler feeding tube was inserted yesterday for supplementation feeding, patient remains on TPN, however her appetite remains very poor, and the registered dietitian will be consulted for tube feeding recommendation, continue same antibiotics, white count is trending down, hemodynamically patient remains stable, maintaining safety precautions, mine safety manager to prevent patient from removing indwelling catheters, cardiology has reinitiated oral anticoagulation. Await results of the final cultures, ID service is following, will continue to follow. I performed a history & physical examination of the patient and discussed their management with my nurse practitioner, Suzanne Kaur. I reviewed the nurse practitioner's note and agree with the documented findings and plan of care. Lung sounds are positive for diminished breath sounds with minimal rhonchi. The findings and the impression was discussed with the patient. I attest to the documentation by the nurse practitioner. Time with Patient: Less than 30
--- NOTE | 2019-02-27 10:05 | P.PN ---
Subjective Patient is seen in follow-up for acute kidney injury on chronic kidney disease. Renal function is better. She is nonoliguric. No further blood clots after the Murphy catheter was flushed. Underwent exploratory laparotomy with sigmoid colectomy and end colostomy this admission. She is maintained on TPN which is running at 60 mL an hour. She will be started on tube feeding today. Oral intake remains poor. She remains somewhat confused. Vital signs are stable. General: The patient appeared well nourished and normally developed. HEENT: Head exam is unremarkable. Neck is without jugular venous distension. LUNGS: Lungs are clear to auscultation and percussion. Breath sounds decreased. HEART: Rate and Rhythm are regular. First and second heart sounds normal. No murmurs, rubs or gallops. ABDOMEN: Bowel sounds present. Soft. EXTREMITITES: No clubbing, cyanosis, or edema. Objective - Vital Signs Vital signs: Vital Signs Temp 99 F 02/27/19 08:00 Pulse 74 02/27/19 10:00 Resp 22 02/27/19 10:00 BP 180/96 02/27/19 10:00 Pulse Ox 95 02/27/19 10:00 Intake & Output 02/26/19 02/27/19 02/27/19 18:59 06:59 18:59 Intake Total 1525 1480 220 Output Total 1440 2150 250 Balance 85 -670 -30 Weight 73.8 kg 76.1 kg Intake: IV 1525 1480 220 0.9 Normal saline 100 PPN 825 780 120 Piperacillin-Tazobactam 3 100 100 .375 gm In Sodium Chloride 0.9% 100 ml @ 25 mls/hr IVPB Q12HR [facility] Rx #:[id number] Sodium Chloride 0.9% 1, 600 600 000 ml @ 50 mls/hr IV . Q20H [facility] Rx#:[id number] Output: Drainage 150 Left Buttock 150 Urine 1190 2150 250 Stool 100 Other: Voiding Method Indwelling Catheter Indwelling Catheter Indwelling Catheter - Labs CBC & Chem 7: 02/27/19 05:58 02/27/19 05:58 Labs: Abnormal Lab Results - Last 24 Hours (Table) 02/26/19 02/26/19 02/26/19 Range/Units 11:55 16:39 20:26 RBC (3.80-5.40) m/uL Hgb (11.4-16.0) gm/dL Hct (34.0-46.0) % Plt Count (150-450) k/uL Monocytes # (Manual) (0-1.0) k/uL Eosinophils # (Manual) (0-0.7) k/uL Sodium (137-145) mmol/L BUN (7-17) mg/dL Creatinine (0.52-1.04) mg/dL Glucose (74-99) mg/dL POC Glucose (mg/dL) 148 H 147 H 149 H (75-99) mg/dL 02/26/19 02/27/19 02/27/19 Range/Units 21:00 05:58 05:58 RBC 2.82 L (3.80-5.40) m/uL Hgb 8.0 L (11.4-16.0) gm/dL Hct 25.1 L (34.0-46.0) % Plt Count 658 H (150-450) k/uL Monocytes # (Manual) 1.08 H (0-1.0) k/uL Eosinophils # (Manual) 0.78 H (0-0.7) k/uL Sodium 136 L (137-145) mmol/L BUN 54 H (7-17) mg/dL Creatinine 1.96 H (0.52-1.04) mg/dL Glucose 150 H (74-99) mg/dL POC Glucose (mg/dL) 148 H (75-99) mg/dL 02/27/19 Range/Units 06:50 RBC (3.80-5.40) m/uL Hgb (11.4-16.0) gm/dL Hct (34.0-46.0) % Plt Count (150-450) k/uL Monocytes # (Manual) (0-1.0) k/uL Eosinophils # (Manual) (0-0.7) k/uL Sodium (137-145) mmol/L BUN (7-17) mg/dL Creatinine (0.52-1.04) mg/dL Glucose (74-99) mg/dL POC Glucose (mg/dL) 148 H (75-99) mg/dL Microbiology - Last 24 Hours (Table) 02/26/19 15:15 Gram Stain - Preliminary Aspirate Body Fluid Culture - Preliminary 02/26/19 15:15 Fungal Culture - Preliminary Other - Other 02/26/19 15:15 Anaerobic Culture - Preliminary Other - Other 02/25/19 08:50 Urine Culture - Preliminary Urine,Voided Assessment and Plan Plan: Assessment: 1. Acute kidney injury secondary to ATN. Improving with IV hydration. Renal function better - creatinine 1.96 today. 2. Chronic kidney disease stage IV with baseline creatinine near 1.7-1.9 secondary to nephrosclerosis and left renal atrophy. 3. S/p exp lap with sigmoid colectomy and end colostomy 02/12/19. Maintained on TPN. Now has abdominal abscess and is scheduled for drainage today. 4. Neurogenic bladder. Patient performs self catheterizations 4-5 times daily. Now has Murphy. 5. Metabolic acidosis secondary to acute kidney injury. Stable. 6. Hypertension with chronic kidney disease. Controlled. 7. UTI with urine culture positive for Klebsiella and E. coli maintained on antibiotics. 8. Hyponatremia secondary to poor solute intake. Better. 9. A-fib maintained on Lopressor and Cardizem. Plan: Maintain normal saline at 50 mL an hour. Will be started on tube feeding today as oral intake remains poor. TPN to be discontinued. Avoid nephrotoxins. Continue to monitor renal function and urine output.
[2019-02-27] MEDS: IPRATROPIUM-ALBUTEROL 3 ML NEB INHALATION SCH ×4 (10:25→19:40)
[2019-02-27] MEDS: BUDESONIDE 0.5 MG/2 ML NEBU INHALATION SCH ×2 (10:25→19:40)
[2019-02-27] MEDS: METOPROLOL TARTRATE 5 MG/5 ML VIAL IVP PRN (10:28)
--- NOTE | 2019-02-27 10:55 | P.PN ---
<Siobhan Dugan Tiffany - Last Filed: 02/27/19 10:43> Subjective Progress Note Date: 02/27/19 CHIEF COMPLAINT: Abdominal pain HISTORY OF PRESENT ILLNESS: Patient is status post exploratory laparotomy, extensive lysis of adhesions, sigmoid colectomy, and end colostomy on 02/12/19. Patient examined at the bedside. Patient appears more confused today. She has a safety equipment testing specialist at the bedside. She underwent drainage of intraabdominal fluid collection yesterday with drainage placement. Cultures are pending. Dobbhoff has been placed. She is receiving PPN. Denies abdominal pain. WBC 9.8. PHYSICAL EXAM: VITAL SIGNS: Reviewed GENERAL: Well-developed in no acute distress. HEENT: No sclera icterus. Extraocular movements grossly intact. Moist buccal mucosa. Head is atraumatic, normocephalic. Hears conversational speech. No nasal drainage. NECK: Supple without lymphadenopathy. CHEST: Non-labored respirations and equal bilateral excursions. CARDIOVASCULAR: Regular rate with regular rhythm. Palpable 2+ radial pulses. ABDOMEN: Soft. Nondistended. Dressing to abdomen clean dry intact. Ostomy with brown liquid stool noted. Drainage bag with light serosanguineous drainage. MUSCULOSKELETAL: No clubbing or cyanosis. NEUROLOGIC: No focal or lateralizing signs. Cranial nerves II through XII grossly intact. PSYCH: Appropriate affect. Alert and oriented to person only. SKIN: Well perfused. Good skin turgor. ASSESSMENT: 1. Abdominal pain, status post exploratory laparotomy, extensive lysis of adhesions, sigmoid colectomy, and end colostomy 2. Intrapelvic fluid collection PLAN: Continue dressing changes. Aquacel silver packing to upper open aspect of incision and gauze packing to lower open aspect of incision Begin tube feedings. Wean off PPN. Oral intake as tolerated Monitor output from drainage collection bag Await culture results. Continue abx. Infectious disease following Nurse practitioner note has been reviewed by physician. Signing provider agrees with the documented findings, assessment, and plan of care. Objective - Vital Signs Vital signs: Vital Signs Temp 99 F 02/27/19 08:00 Pulse 120 H 02/27/19 10:42 Resp 22 02/27/19 10:00 BP 180/96 02/27/19 10:00 Pulse Ox 95 02/27/19 10:00 Intake & Output 02/26/19 02/27/1920 18:59 06:59 18:59 Intake Total 1525 1480 330 Output Total 1440 2150 475 Balance 85 -670 -145 Weight 73.8 kg 76.1 kg Intake: IV 1525 1480 330 0.9 Normal saline 150 PPN 825 780 180 Piperacillin-Tazobactam 3 100 100 .375 gm In Sodium Chloride 0.9% 100 ml @ 25 mls/hr IVPB Q12HR [facility] Rx #:[id number] Sodium Chloride 0.9% 1, 600 600 000 ml @ 50 mls/hr IV . Q20H [facility] Rx#:[id number] Output: Drainage 150 Left Buttock 150 Urine 1190 2150 475 Stool 100 Other: Voiding Method Indwelling Catheter Indwelling Catheter Indwelling Catheter - Labs CBC & Chem 7: 02/27/19 05:58 02/27/19 05:58 Labs: Abnormal Lab Results - Last 24 Hours (Table) 02/26/19 02/26/19 02/26/19 Range/Units 11:55 16:39 20:26 RBC (3.80-5.40) m/uL Hgb (11.4-16.0) gm/dL Hct (34.0-46.0) % Plt Count (150-450) k/uL Monocytes # (Manual) (0-1.0) k/uL Eosinophils # (Manual) (0-0.7) k/uL Sodium (137-145) mmol/L BUN (7-17) mg/dL Creatinine (0.52-1.04) mg/dL Glucose (74-99) mg/dL POC Glucose (mg/dL) 148 H 147 H 149 H (75-99) mg/dL 02/26/19 02/27/19 02/27/19 Range/Units 21:00 05:58 05:58 RBC 2.82 L (3.80-5.40) m/uL Hgb 8.0 L (11.4-16.0) gm/dL Hct 25.1 L (34.0-46.0) % Plt Count 658 H (150-450) k/uL Monocytes # (Manual) 1.08 H (0-1.0) k/uL Eosinophils # (Manual) 0.78 H (0-0.7) k/uL Sodium 136 L (137-145) mmol/L BUN 54 H (7-17) mg/dL Creatinine 1.96 H (0.52-1.04) mg/dL Glucose 150 H (74-99) mg/dL POC Glucose (mg/dL) 148 H (75-99) mg/dL 02/27/19 Range/Units 06:50 RBC (3.80-5.40) m/uL Hgb (11.4-16.0) gm/dL Hct (34.0-46.0) % Plt Count (150-450) k/uL Monocytes # (Manual) (0-1.0) k/uL Eosinophils # (Manual) (0-0.7) k/uL Sodium (137-145) mmol/L BUN (7-17) mg/dL Creatinine (0.52-1.04) mg/dL Glucose (74-99) mg/dL POC Glucose (mg/dL) 148 H (75-99) mg/dL Microbiology - Last 24 Hours (Table) 02/26/19 15:15 Gram Stain - Preliminary Aspirate Body Fluid Culture - Preliminary 02/26/19 15:15 Fungal Culture - Preliminary Other - Other 02/26/19 15:15 Anaerobic Culture - Preliminary Other - Other 02/25/19 08:50 Urine Culture - Preliminary Urine,Voided <Kiera Morrison N - Last Filed: 02/28/19 08:23> Subjective As above. WBC now normal. Continue CT-guided drain. Antibiotic management per infectious disease. Objective - Vital Signs Vital signs: Vital Signs Temp 97.3 F L 02/28/19 08:00 Pulse 93 02/28/19 08:00 Resp 19 02/28/19 08:00 BP 149/75 02/28/19 08:00 Pulse Ox 95 02/28/19 08:00 Intake & Output 02/27/19 02/28/19 02/28/19 18:59 06:59 18:59 Intake Total 2315.917 1510.083 Output Total 2505 1725 Balance -189.083 -214.917 Weight 76.1 kg Intake: IV 1210 1320 0.9 Normal saline 550 50 PPN 660 720 Sodium Chloride 0.9% 1, 550 000 ml @ 50 mls/hr IV . Q20H [facility] Rx#:[id number] Intake, IV Titration 1045.917 120.083 Amount Diltiazem 125 mg In 4.917 120.083 Sodium Chloride 0.9% 100 ml @ Per Protocol IV .Q0M [facility] Rx#:[id number] Mvi, Adult No.4 with Vit 1041 K 10 ml Trace (Conc-1Ml/ Dose) 1 ml Sodium Acetate 40 meq Calcium Gluconate 1 gm In Amino Acid 5%- D15w 1,000 ml @ 60 mls/hr IV .[id number] [facility] Rx#: [id number] Tube Feeding 30 70 Other 30 Output: Urine 2505 1725 Other: Voiding Method Indwelling Catheter Indwelling Catheter - Labs CBC & Chem 7: 02/28/19 05:25 02/28/19 05:25 Labs: Abnormal Lab Results - Last 24 Hours (Table) 02/27/19 02/27/19 02/27/19 Range/Units 12:01 17:16 21:17 RBC (3.80-5.40) m/uL Hgb (11.4-16.0) gm/dL Hct (34.0-46.0) % Plt Count (150-450) k/uL Neutrophils # (Manual) (1.3-7.7) k/uL Sodium (137-145) mmol/L Potassium (3.5-5.1) mmol/L BUN (7-17) mg/dL Creatinine (0.52-1.04) mg/dL Glucose (74-99) mg/dL POC Glucose (mg/dL) 157 H 174 H 139 H (75-99) mg/dL 02/28/19 02/28/19 02/28/19 Range/Units 05:25 05:25 06:46 RBC 2.99 L (3.80-5.40) m/uL Hgb 8.7 L (11.4-16.0) gm/dL Hct 26.8 L (34.0-46.0) % Plt Count 676 H (150-450) k/uL Neutrophils # (Manual) 7.84 H (1.3-7.7) k/uL Sodium 135 L (137-145) mmol/L Potassium 3.2 L (3.5-5.1) mmol/L BUN 45 H (7-17) mg/dL Creatinine 1.75 H (0.52-1.04) mg/dL Glucose 144 H (74-99) mg/dL POC Glucose (mg/dL) 166 H (75-99) mg/dL Microbiology - Last 24 Hours (Table) 02/26/19 15:15 Gram Stain - Preliminary Aspirate Body Fluid Culture - Preliminary 02/25/19 08:50 Urine Culture - Final Urine,Voided Selin albicans Assessment and Plan (1) Diverticulitis with obstruction Current Visit: Yes Status: Acute Code(s): K57.92 - DVTRCLI OF INTEST, PART UNSP, W/O PERF OR ABSCESS W/O BLEED SNOMED Code(s): 680079383 (2) Atrial fibrillation with RVR Current Visit: Yes Status: Acute Code(s): I48.91 - UNSPECIFIED ATRIAL FIBRILLATION SNOMED Code(s): 651816317591104 (3) Stage 3 chronic renal impairment associated with type 2 diabetes mellitus Current Visit: Yes Status: Acute Code(s): E11.22 - TYPE 2 DIABETES MELLITUS W DIABETIC CHRONIC KIDNEY DISEASE; N18.3 - CHRONIC KIDNEY DISEASE, STAGE 3 (MODERATE) SNOMED Code(s): 001292379157 (4) Diabetes type 2, uncontrolled Current Visit: Yes Status: Acute Code(s): E11.65 - TYPE 2 DIABETES MELLITUS WITH HYPERGLYCEMIA SNOMED Code(s): 910158187 (5) Leukocytosis Current Visit: Yes Status: Acute Code(s): D72.829 - ELEVATED WHITE BLOOD CELL COUNT, UNSPECIFIED SNOMED Code(s): 155147932 (6) Colostomy status Current Visit: Yes Status: Acute Code(s): Z93.3 - COLOSTOMY STATUS SNOMED Code(s): 109792254
[2019-02-27 12:02] LABS: Glucose,Whole Blood 157 mg/dL (75-99)
[2019-02-27] MEDS: MAGNESIUM SULFATE-D5W PMX 1 GM in DEXTROSE/WATER 1 100ML.BAG IVPB SCH ×2 (12:15→13:45)
[2019-02-27] MEDS: SODIUM CHLORIDE 0.9% 1,000 ML IV SCH (12:16)
[2019-02-27] MEDS: FAT EMULSION 20% 250 ML IV SCH (13:41)
[2019-02-27] MEDS: DILTIAZEM 125 MG in SODIUM CHLORIDE 0.9% 100 ML IV SCH ×2 (13:41→22:42)
[2019-02-27] MEDS: MVI, ADULT NO.4 WITH VIT K 10 ML, TRACE (CONC-1ML/DOSE) 1 ML, SODIUM ACETATE 40 MEQ, CA... IV SCH ×5 (13:44)
[2019-02-27 17:17] LABS: Glucose,Whole Blood 174 mg/dL (75-99)
--- NOTE | 2019-02-27 18:24 | P.PN ---
Subjective Progress Note Date: 02/27/19 Dictation of present progress note date of service 02/27/[address] Engel, Room #266. 1 surgical ICU. Patient seen and evaluated and the she had nasogastric tube for feeding , placed by Dr. Llanes, she had a Murphy catheter with a neurogenic bladder, she still have the TPN. She had aspiration of the pelvic fluid to rule out abscess formation, found to be PMNs pyuria without bacteremia. Her UTI which found to be with yeast, Dr. Eulalio akabr infectious disease has been consulted. Her white count 9.8 improved, hemoglobin is 8 with a hematocrit 25.1, platelet count 658. [place] sodium 136 potassium 3.5 , chloride 103 carbon dioxide 2590 able rate and BUN of 54 creatinine 1.96 which is improved. Glucose 150 impatient covered with CBG to scale, POC 174 at 1715 p.m. Calcium 9.2 phosphorus 2.8, and magnesium 1.8. Aspirate was indicating moderate PMNs and no organisms envelope machine adjuster however the culture was done result is pending. In 02/25/2019 indicating Selin albicans. Vital sign temperature 90.8 F oral pulse rate 101 regular with the atrial fibrillation respiratory rate 21 and the blood pressure 141/90 and the saturation 97%. And the flow rates his 4 L/m. Patient's awake alert however she is confused and 2 she is also alert to person only and she recognized I name. She thinking that she is in [place]. With the underlying delirium. Head was normocephalic and atraumatic. Neck was supple no JVD. Chest was created bilateral in the upper lung field with the lower lung right dmitriy-diaphragm elevation and some atelectasis which is currently improved her lung irradiation and FiO2 has been decreased. The heart : Atrial fibrillation with the fluctuation of the heart rate however generally stable with the current treatment. Abdomen positive bowel sounds at this post aspiration of pelvic fluid. She had a Murphy catheter in place and she has no complaint of pain. Extremities: No edema and positive pulses. With the thrombotic inflatable stocking. There is a mild distention and to metastatic abdomen however his improving with the positive bowel sounds she had also stool in the colostomy bag. Assessment: Status post aspiration of the pelvic collection of fluid, so far PMNs oncolytic culture result available. Hyperglycemia secondary to TPN Vital sign his improving Atrial fibrillation with the paroxysmal fluctuation. Blood pressure is stable Oxygenation stable on nasal cannula. With the flow rate 4 L. Plan: Patient appears to be improving, infectious disease Dr. Tsai following will be decision for the Selin to treat or not to treat and he will be looking at that. We'll continue monitoring the cultures. Objective - Vital Signs Vital signs: Vital Signs Temp 98.0 F 02/27/19 16:00 Pulse 130 H 02/27/19 17:00 Resp 16 02/27/19 17:00 BP 133/92 02/27/19 17:00 Pulse Ox 95 02/27/19 17:00 Intake & Output 02/26/19 02/27/19 02/27/19 18:59 06:59 18:59 Intake Total 1525 1480 2195.917 Output Total 1440 2150 2355 Balance 85 -670 -159.083 Weight 73.8 kg 76.1 kg 76.1 kg Intake: IV 1525 1480 1100 0.9 Normal saline 500 PPN 825 780 600 Piperacillin-Tazobactam 3 100 100 .375 gm In Sodium Chloride 0.9% 100 ml @ 25 mls/hr IVPB Q12HR [facility] Rx #:[id number] Sodium Chloride 0.9% 1, 600 600 000 ml @ 50 mls/hr IV . Q20H [facility] Rx#:[id number] Intake, IV Titration 1045.917 Amount Diltiazem 125 mg In 4.917 Sodium Chloride 0.9% 100 ml @ Per Protocol IV .Q0M [facility] Rx#:[id number] Mvi, Adult No.4 with Vit 1041 K 10 ml Trace (Conc-1Ml/ Dose) 1 ml Sodium Acetate 40 meq Calcium Gluconate 1 gm In Amino Acid 5%- D15w 1,000 ml @ 60 mls/hr IV .[id number] [facility] Rx#: [id number] Tube Feeding 20 Other 30 Output: Drainage 150 Left Buttock 150 Urine 1190 2150 2355 Stool 100 Other: Voiding Method Indwelling Catheter Indwelling Catheter Indwelling Catheter - Labs CBC & Chem 7: 02/27/19 05:58 02/27/19 05:58 Labs: Abnormal Lab Results - Last 24 Hours (Table) 02/26/19 02/26/19 02/27/19 Range/Units 20:26 21:00 05:58 RBC (3.80-5.40) m/uL Hgb (11.4-16.0) gm/dL Hct (34.0-46.0) % Plt Count (150-450) k/uL Monocytes # (Manual) (0-1.0) k/uL Eosinophils # (Manual) (0-0.7) k/uL Sodium 136 L (137-145) mmol/L BUN 54 H (7-17) mg/dL Creatinine 1.96 H (0.52-1.04) mg/dL Glucose 150 H (74-99) mg/dL POC Glucose (mg/dL) 149 H 148 H (75-99) mg/dL 02/27/19 02/27/19 02/27/19 Range/Units 05:58 06:50 12:01 RBC 2.82 L (3.80-5.40) m/uL Hgb 8.0 L (11.4-16.0) gm/dL Hct 25.1 L (34.0-46.0) % Plt Count 658 H (150-450) k/uL Monocytes # (Manual) 1.08 H (0-1.0) k/uL Eosinophils # (Manual) 0.78 H (0-0.7) k/uL Sodium (137-145) mmol/L BUN (7-17) mg/dL Creatinine (0.52-1.04) mg/dL Glucose (74-99) mg/dL POC Glucose (mg/dL) 148 H 157 H (75-99) mg/dL 02/27/19 Range/Units 17:16 RBC (3.80-5.40) m/uL Hgb (11.4-16.0) gm/dL Hct (34.0-46.0) % Plt Count (150-450) k/uL Monocytes # (Manual) (0-1.0) k/uL Eosinophils # (Manual) (0-0.7) k/uL Sodium (137-145) mmol/L BUN (7-17) mg/dL Creatinine (0.52-1.04) mg/dL Glucose (74-99) mg/dL POC Glucose (mg/dL) 174 H (75-99) mg/dL Microbiology - Last 24 Hours (Table) 02/25/19 08:50 Urine Culture - Final Urine,Voided Selin albicans 02/26/19 15:15 Gram Stain - Preliminary Aspirate Body Fluid Culture - Preliminary 02/26/19 15:15 Fungal Culture - Preliminary Other - Other 02/26/19 15:15 Anaerobic Culture - Preliminary Other - Other
--- NOTE | 2019-02-27 18:50 | PN ---
PROGRESS NOTE DATE OF SERVICE: 02/27/2019 REASON FOR FOLLOWUP: Abdominal abscess. INTERVAL HISTORY: The patient is currently afebrile. Patient is pleasantly confused. No agitation has been noted. No nausea, vomiting. No chest pain. No cough. No abdominal pain. PHYSICAL EXAMINATION: Blood pressure 119/83 with pulse 100, temperature 98, she is 95% on room air. General description is an elderly female lying in bed in no distress. Respiratory system: Unlabored breathing. Decreased breath sounds at the bases. No wheeze. Heart is S1, S2. Regular rate and rhythm. Abdomen soft. No guarding, no rigidity. LAB: Hemoglobin 8, white count 9.8. BUN of 54, creatinine 1.96. Abdominal and stool cultures currently pending. DIAGNOSTIC IMPRESSION AND PLAN: Patient with diverticulitis status post diverting colostomy with evidence of a fluid collection in the abdomen, status post drainage which looks more ascitic, less likely abscess. Culture is pending. Patient covered with Zosyn, to continue. White count is normal. Has had no fever. Continue supportive care condition. MMODL / IJN: [id number] /
[2019-02-27 21:18] LABS: Glucose,Whole Blood 139 mg/dL (75-99)
[2019-02-27] MEDS: DULoxetine HCL 60 MG CAPSULE.DR PO SCH (21:28)
[2019-02-27] MEDS: ATORVASTATIN 10 MG TAB PO SCH (21:28)
[2019-02-27] MEDS: APIXABAN 5 MG TAB PO SCH (21:28)
[2019-02-28 06:00] LABS: Magnesium 2.1 mg/dL (1.6-2.3); Phosphorus 2.8 mg/dL (2.5-4.5); Potassium 3.2 mmol/L (3.5-5.1)
[2019-02-28 06:05] LABS: HCT 26.8 % (34.0-46.0); HGB 8.7 gm/dL (11.4-16.0); Hypochromasia Slight; MCH 29.3 pg (25.0-35.0); MCHC 32.6 g/dL (31.0-37.0); MCV 89.7 fL (80.0-100.0); Platelet Count 676 k/uL (150-450); RBC 2.99 m/uL (3.80-5.40); RDW 14.6 % (11.5-15.5); WBC 10.6 k/uL (3.8-10.6)
[2019-02-28] MEDS ORDERED: MVI, ADULT NO.4 WITH VIT K 10 ML, TRACE (CONC-1ML/DOSE) 1 ML, CALCIUM GLUCONATE 1 GM, S... IV SCH ×11 (06:30→07:00)
[2019-02-28] MEDS ORDERED: Potassium Replacement Protocol 1 EACH MISC MISCELLANE PRN (06:39)
[2019-02-28 06:47] LABS: Glucose,Whole Blood 166 mg/dL (75-99)
[2019-02-28 07:00] LABS: Eosinophils # (M) 0.64 k/uL (0-0.7); Lymphocytes # (M) 1.59 k/uL (1.0-4.8); Monocytes # (M) 0.53 k/uL (0-1.0); Neutrophils # (M) 7.84 k/uL (1.3-7.7); Neutrophils % (M) 74 %; Nucleated Red Blood Cells 0 /100 WBC (0-0); Total Cells Counted 100
[2019-02-28] MEDS: INSULIN ASPART (NovoLOG) 100 UNIT/ML VIAL SQ SCH ×4 (07:08→20:59)
[2019-02-28] MEDS: POTASSIUM CHLORIDE 20 MEQ in WATER FOR INJECTION 1 100ML.BAG IVPB SCH ×3 (07:45→12:42)
[2019-02-28] MEDS: IPRATROPIUM-ALBUTEROL 3 ML NEB INHALATION SCH ×4 (08:33→19:44)
[2019-02-28] MEDS: BUDESONIDE 0.5 MG/2 ML NEBU INHALATION SCH ×2 (09:27→19:44)
[2019-02-28] MEDS: APIXABAN 5 MG TAB PO SCH ×2 (09:46→21:22)
[2019-02-28] MEDS: METOPROLOL TARTRATE 50 MG TAB PO SCH ×2 (09:46→21:22)
[2019-02-28] MEDS: METOPROLOL TARTRATE 5 MG/5 ML VIAL IVP SCH (09:47)
[2019-02-28] MEDS: PIPERACILLIN-TAZOBACTAM 3.375 GM in SODIUM CHLORIDE 0.9% 100 ML IVPB SCH ×2 (09:49→21:23)
[2019-02-28] MEDS: SODIUM CHLORIDE 0.9% 1,000 ML IV SCH (09:53)
--- NOTE | 2019-02-28 10:36 | P.PN ---
Subjective Progress Note Date: 02/28/19 Principal diagnosis: Acute bowel obstruction status post laparotomy with extensive lysis of adhesions and sigmoid colectomy and end colostomy. The patient is seen today in 02/28/2019 in follow-up in the intensive care unit. She is currently resting comfortably in bed. Awake and alert. She was awake most of the night according to the nursing staff. She is currently on 4 L cannula maintaining O2 saturations in the 90s. She has a 0.9 normal saline at 50 ML's per hour. TPN at 60 ML's per hour. Cardizem drip at 15 mg per hour. She had been resumed on her Eliquis. She is also receiving tube feedings via Dobbhoff on vital AF at 20 ML's per hour with a goal of 55. White count 10.6. Hemoglobin 8.7. Creatinine 1.75. He is continued on bronchodilators, antibiotics in the form of Zosyn. Objective - Vital Signs Vital signs: Vital Signs Temp 97.3 F L 02/28/19 08:00 Pulse 98 02/28/19 10:00 Resp 18 02/28/19 10:00 BP 143/99 02/28/19 10:00 Pulse Ox 94 L 02/28/19 10:00 Intake & Output 02/27/19 02/28/19 02/28/19 18:59 06:59 18:59 Intake Total 2315.917 1510.083 470 Output Total 2505 1725 750 Balance -189.083 -214.917 -280 Weight 76.1 kg Intake: IV 1210 1320 440 0.9 Normal saline 550 50 PPN 660 720 240 Sodium Chloride 0.9% 1, 550 200 000 ml @ 50 mls/hr IV . Q20H [facility] Rx#:[id number] Intake, IV Titration 1045.917 120.083 Amount Diltiazem 125 mg In 4.917 120.083 Sodium Chloride 0.9% 100 ml @ Per Protocol IV .Q0M [facility] Rx#:[id number] Mvi, Adult No.4 with Vit 1041 K 10 ml Trace (Conc-1Ml/ Dose) 1 ml Sodium Acetate 40 meq Calcium Gluconate 1 gm In Amino Acid 5%- D15w 1,000 ml @ 60 mls/hr IV .[id number] [facility] Rx#: [id number] Tube Feeding 30 70 30 Other 30 Output: Urine 2505 1725 650 Stool 100 Other: Voiding Method Indwelling Catheter Indwelling Catheter Indwelling Catheter - Exam GENERAL EXAM: Alert, pleasant, 83-year-old female patient, she is on 4 L nasal cannula, and her pulse ox is 94%, comfortable in no apparent distress. HEAD: Normocephalic/atraumatic. EYES: Normal reaction of pupils, equal size. Conjunctiva pink, sclera white. NOSE: Clear with pink turbinates. NG-tube is in place to low intermittent suction THROAT: No erythema or exudates. NECK: No masses, no JVD, no thyroid enlargement, no adenopathy. CHEST: No chest wall deformity. Symmetrical expansion. LUNGS: Equal air entry with mild rhonchi, diminished breath sounds CVS: Irregular rate and rhythm, normal S1 and S2, no gallops, no murmurs, no rubs ABDOMEN: Soft, nontender. No hepatosplenomegaly, normal bowel sounds, no guarding or rigidity. Midline incision with maggy intact, colostomy with liquid yellow output EXTREMITIES: No clubbing, no edema, no cyanosis, 2+ pulses and upper and lower extremities. MUSCULOSKELETAL: Muscle strength and tone normal. SPINE: No scoliosis or deformity SKIN: No rashes CENTRAL NERVOUS SYSTEM: No focal deficits, tone is normal in all 4 extremities. PSYCHIATRIC: Alert and oriented -2. Appropriate affect. Intact judgment and insight. - Labs CBC & Chem 7: 02/28/19 05:25 02/28/19 05:25 Labs: Abnormal Lab Results - Last 24 Hours (Table) 02/27/19 02/27/19 02/27/19 Range/Units 12:01 17:16 21:17 RBC (3.80-5.40) m/uL Hgb (11.4-16.0) gm/dL Hct (34.0-46.0) % Plt Count (150-450) k/uL Neutrophils # (Manual) (1.3-7.7) k/uL Sodium (137-145) mmol/L Potassium (3.5-5.1) mmol/L BUN (7-17) mg/dL Creatinine (0.52-1.04) mg/dL Glucose (74-99) mg/dL POC Glucose (mg/dL) 157 H 174 H 139 H (75-99) mg/dL 02/28/19 02/28/19 02/28/19 Range/Units 05:25 05:25 06:46 RBC 2.99 L (3.80-5.40) m/uL Hgb 8.7 L (11.4-16.0) gm/dL Hct 26.8 L (34.0-46.0) % Plt Count 676 H (150-450) k/uL Neutrophils # (Manual) 7.84 H (1.3-7.7) k/uL Sodium 135 L (137-145) mmol/L Potassium 3.2 L (3.5-5.1) mmol/L BUN 45 H (7-17) mg/dL Creatinine 1.75 H (0.52-1.04) mg/dL Glucose 144 H (74-99) mg/dL POC Glucose (mg/dL) 166 H (75-99) mg/dL Microbiology - Last 24 Hours (Table) 02/26/19 15:15 Gram Stain - Preliminary Aspirate Body Fluid Culture - Preliminary 02/25/19 08:50 Urine Culture - Final Urine,Voided Selin albicans Assessment and Plan Assessment: 1 Abdominal discomfort with constipation and colon obstruction status post posterior laparotomy, extensive lysis of adhesions, sigmoid colectomy, end colostomy. 2 Large fluid collection in the pelvis could be related to an abscess, procedure on 02/26/2019 with 20 mL of serous fluid was removed and sent for pathology. Drainage tube remains in place. 3 Acute hypoxic respiratory failure in the immediate postoperative period requiring BiPAP support. Currently on 4L nasal cannula. 4 Atrial fibrillation with a rapid ventricular response initially on a heparin drip. Currently on hold due to surgery. Currently in sinus rhythm. The plan is for initiation of Eliquis once cleared surgically. 5 Urinary tract infection secondary to Klebsiella pneumoniae and E. coli 6 Lifelong nonsmoker. 7 Hypertension. 8 Hyperlipidemia. 9 Acute on chronic renal failure. Current creatinine 1.75. Plan: The patient was seen and evaluated by Dr. Llanes. Continue to encourage the use of the incentive spirometer and cough and deep breathing exercises. Keep her here in the intensive care unit. We'll continue to follow make further recommendations based on her clinical status. I, the cosigning physician, performed a history & physical examination of the patient. Lungs sounds are clear anteriorly, crackles in the posterior bases. Maintaining good O2 saturations in the 90s on 4L nasal cannula. I discussed the assessment and plan of care with my nurse practitioner, Jenelle Heaton. I attest to the above consultation as dictated by her.
--- NOTE | 2019-02-28 10:45 | P.PN ---
Progress Note - Text Progress Note Date: 02/28/19 The patient remains relatively stable in the ICU. She still being treated for age fibrillation with rapid ventricular rate. She is tolerating her Dobbhoff tube feeds there is formed stool in the colostomy. On exam her vital signs are stable. Her abdomen is soft. Colostomy is pink and function. Incision site is clean. Patient remained in the ICU until cleared by cardiology. She has still had poor oral intake. The Dobbhoff tube will remain for now.
--- NOTE | 2019-02-28 11:02 | PN ---
PROGRESS NOTE DATE OF SERVICE: 02/28/2019 REASON FOR FOLLOWUP: Perforated diverticulitis and abdominal abscess. INTERVAL HISTORY: The patient is currently afebrile. The patient remains to be slightly sleepy, lethargic though hemodynamically stable not requiring any pressor support. Denies having any chest pain. Did have some cough but no worsening, no nausea, vomiting or any diarrhea. PHYSICAL EXAMINATION: Blood pressure 149/75 with a pulse of 84 temperature is 97.8 she is 94% on 4 L nasal cannula. General description is an elderly female, lying in bed in no distress. RESPIRATORY SYSTEM: Unlabored breathing, clear to auscultation anteriorly. HEART: S1, S2. Regular rate and rhythm. ABDOMEN: Soft, no tenderness. LABS: Hemoglobin is 8.7, white count 10.3, BUN of 45, creatinine 1.75. Abdominal culture so far negative. DIAGNOSTIC IMPRESSION AND PLAN: Patient with perforated sigmoid diverticulitis, status post diverting colostomy with subsequent finding of abdominal fluid and concern for an abscess, status post CT-guided drainage. Cultures have been negative so far. The patient is covered with Zosyn. White count normal, she is afebrile. Will continue to monitor her clinical course closely and continue supportive care. MMODL / IJN: [id number] /
[2019-02-28 11:53] LABS: Glucose,Whole Blood 205 mg/dL (75-99)
[2019-02-28] MEDS: DILTIAZEM 125 MG in SODIUM CHLORIDE 0.9% 100 ML IV SCH (11:58)
--- NOTE | 2019-02-28 12:35 | P.PN ---
Subjective Progress Note Date: 02/28/19 This 82-year-old female with history of hypertension and diastolic congestive heart failure and paroxysmal atrial fibrillation had a colectomy laparoscopically. Patient is not complaining of abdominal pain but complains of shortness of breath. She is in atrial fibrillation with controlled and corresponds. Her blood pressure is about 110. Patient is on Catapres along with metoprolol. She is also on Eliquis. I will increase the dose of the metoprolol and the heart rate is controlled, we'll may discontinue Cardizem. Lungs examination shows diminished breath sounds at bases. Heart is irregular. We'll follow the 02/17/2019: This patient is to intensive care unit. Patient still complaining of abdominal discomfort. Has been coughing and having some dysphagia difficulties. Patient remains in atrial fibrillation with controlled ventricular response. She is on metoprolol and also anti-cognition therapy with Eliquis 2.5 mg by mouth twice a day. Patient is status post abdominal surgery with removal of significant adhesions and also colectomy and colostomy. She is progressing slowly. Request pulmonary toilet. We'll continue current medical therapy. We will follow. 02/18/2019:. Patient claims she is feeling slightly better. Patient is in atrial fibrillation with moderate to rapid ventricle response. I'm going to increase the dose of the metoprolol. Patient is on anticoagulation therapy. However, patient is having blood in the urine. Urology is could evaluate the patient. We'll going to hold anti-cognition therapy temporarily. Rest of the management as per the surgeon's 02/19/2019: Patient's appear to be slightly better. Denies any chest pain or shortness of breath. Patient heart rate is in the 120s to 130s. She is on metoprolol 50 mg by mouth 3 times a day. She is not on IV Cardizem. She is on anticoagulation therapy. I'm going to add oral Cardizem 60 mg by mouth 3 times a day. Lungs appeared to be relatively clear. Heart is regular. We'll follow 02/27/2019: This patient is confused. Alert and doesn't appear to be in acute distress. Patient had drainage of intra-abdominal abscess. Yesterday. She is in sinus rhythm. Tolerating oral metoprolol. Continue current medical therapy. We'll resume Eliquis. 02/28: The patient remains in the intensive care unit. Her heart rate this morning is running between 125 and 145. Lopressor was increased to 50 mg 3 times daily and patient remains on Cardizem drip at 15. Blood pressure 143/86. Heart had monitor atrial fibrillation. Patient was resumed on eliquis yesterday. BUN 45, creatinine 1.75, hemoglobin 8.7. Objective - Vital Signs Vital signs: Vital Signs Temp 97.3 F L 02/28/19 08:00 Pulse 83 02/28/19 11:51 Resp 20 02/28/19 11:00 BP 150/83 02/28/19 11:00 Pulse Ox 93 L 02/28/19 11:00 Intake & Output 02/27/19 02/28/19 02/28/19 18:59 06:59 18:59 Intake Total 2315.917 1510.083 580 Output Total 2505 1725 950 Balance -189.083 -214.917 -370 Weight 76.1 kg 73.1 kg Intake: IV 1210 1320 550 0.9 Normal saline 550 50 PPN 660 720 300 Sodium Chloride 0.9% 1, 550 250 000 ml @ 50 mls/hr IV . Q20H [facility] Rx#:[id number] Intake, IV Titration 1045.917 120.083 Amount Diltiazem 125 mg In 4.917 120.083 Sodium Chloride 0.9% 100 ml @ Per Protocol IV .Q0M [facility] Rx#:[id number] Mvi, Adult No.4 with Vit 1041 K 10 ml Trace (Conc-1Ml/ Dose) 1 ml Sodium Acetate 40 meq Calcium Gluconate 1 gm In Amino Acid 5%- D15w 1,000 ml @ 60 mls/hr IV .[id number] [facility] Rx#: [id number] Tube Feeding 30 70 30 Other 30 Output: Urine 2505 1725 850 Stool 100 Other: Voiding Method Indwelling Catheter Indwelling Catheter Indwelling Catheter - Exam GENERAL EXAM: Patient is alert but confused HEENT: Normocephalic. Normal reaction of pupils, equal size, normal range of extraocular motion. Dobbhoff in place. NECK: No masses, no nuchal rigidity. CHEST: No chest wall deformity. LUNGS: Diminished breath sounds at bases HEART: Irregular rhythm, S1 and S2 normal with no audible mumurs or gallops. ABDOMEN: Postsurgical with colostomy, normal bowel sounds SKIN: No rashes CENTRAL NERVOUS SYSTEM: No focal deficits. Patient is awake and alert but noted to have some mild confusion. EXTREMITIES: No cyanosis, clubbing or edema. Dorsalis pedis +2 bilaterally. - Labs CBC & Chem 7: 02/28/19 05:25 02/28/19 05:25 Labs: Abnormal Lab Results - Last 24 Hours (Table) 02/27/19 02/27/19 02/28/19 Range/Units 17:16 21:17 05:25 RBC (3.80-5.40) m/uL Hgb (11.4-16.0) gm/dL Hct (34.0-46.0) % Plt Count (150-450) k/uL Neutrophils # (Manual) (1.3-7.7) k/uL Sodium 135 L (137-145) mmol/L Potassium 3.2 L (3.5-5.1) mmol/L BUN 45 H (7-17) mg/dL Creatinine 1.75 H (0.52-1.04) mg/dL Glucose 144 H (74-99) mg/dL POC Glucose (mg/dL) 174 H 139 H (75-99) mg/dL 02/28/19 02/28/19 02/28/19 Range/Units 05:25 06:46 11:52 RBC 2.99 L (3.80-5.40) m/uL Hgb 8.7 L (11.4-16.0) gm/dL Hct 26.8 L (34.0-46.0) % Plt Count 676 H (150-450) k/uL Neutrophils # (Manual) 7.84 H (1.3-7.7) k/uL Sodium (137-145) mmol/L Potassium (3.5-5.1) mmol/L BUN (7-17) mg/dL Creatinine (0.52-1.04) mg/dL Glucose (74-99) mg/dL POC Glucose (mg/dL) 166 H 205 H (75-99) mg/dL Microbiology - Last 24 Hours (Table) 02/26/19 15:15 Gram Stain - Preliminary Aspirate Body Fluid Culture - Preliminary 02/25/19 08:50 Urine Culture - Final Urine,Voided Selin albicans Assessment and Plan Plan: Assessment: Paroxysmal atrial fibrillation Hypertension Chronic diastolic heart failure Small bowel obstruction status post surgical intervention with colostomy Chronic diastolic heart failure Plan: Lopressor will be changed to 100 mg twice daily Add amiodarone 400 mg oral twice daily Continue Cardizem drip. Continue eliquis 5 mg twice daily Further recommendations to follow based upon clinical course. ON AWAKE COUNSELOR note has been reviewed, I agree with documented findings and plan of care. Patient was seen and examined.
[2019-02-28] MEDS: FAT EMULSION 20% 250 ML IV SCH (12:41)
--- NOTE | 2019-02-28 13:07 | P.PN ---
Subjective Progress Note Date: 02/28/19 Principal diagnosis: mechanical obstruction with small bowel and distended abdomen with history of adhesions in the past. The progress note dictated on 02/08/2090 by Patient with history notable bowel movement or stool or passing flatus for more than one week duration x-ray indicating small bowel mechanical obstruction. And patient currently nothing by mouth with NG tube which she did some relief. Her vital sign temperature 90.8 orally F Fahrenheit and her pulse rate 80 and she developed on the surgical floor atrial fibrillation with a rate of 1:30 P 8/m patient transferred to environmental monitoring specialist floor with cardiology consultation which she was started on cardiac exam drip. And seen by Dr. SIATU Zamudio. Respiratory rate 16 and her blood pressure is hypertensive in spite of trial of medication 187/84. She is on nasal cannula 2 L of oxygen with a pulse ox 95%. current laboratories indicating that her WBC 5.3 with a hemoglobin 11.6, her platelet count 414.next is her PTT 32.6with the normal range 30.6. Minimally elevated. Chemistry indicating sodium 144 potassium 3.8 chloride 108 carbon dioxid 28, anion gap 8, BUN 20, creatinine 1.94, EGFR 23 with chronic kidney disease stage IV. Glucose 131AST and LT normal alk phos 137 total protein 6.1 and albumin 3.4 thyroid function is normal and the free T3 some little bit lower than normal that is because of her illness Nephrology evaluation and assessment indicating patient with the UTI Klebsiella pneumonia and E. coli treated according to the culture with the assessment acute kidney injury possibly prerenal improved with hydration. Chronic kidney disease stage IV with the creatinine near 2 secondary to hydronephrosis and left renal atrophy. #3 abdominal pain with questionable diverticulitis and chronic obstruction and NG tube for decompression. Neurogenic bladder and uses a catheterization 4-5 a day metabolic acidosis and she is on bicarb hypertension is controlled and UTI. Physical exam patient status post barium enema and patient the result reviewed by Dr. Sahu and his impression will be discussed with the family. HEENT was negative neck was supple and chest was clear and the heart was currently controlled atrophic And abdomen is tender distended and with the small bowel obstruction extremities no edema. Assessment small bowel obstruction mechanical and high fall to the patient should have surgical intervention. However this is a surgical case and up to the family and the surgeon. Progress note date of service 02/28/2019. Dictation by Dr. Engel Patient seen and evaluated and discussed with the nursing staff as well as her adopted daughter. Patient is conscious alert she recalled my name and she recalled the place [facility]. With the delirium has been fluctuating. Her vital sign indicating atrial fibrillation was fluctuation. With the heart rate between 107 to 1:30., Her respiratory rate between 1520 minutes. Blood pressure has been stable in 150/83. WBC 10.6 hemoglobin 8.7 hematocrit 26.8 platelet count 676. Chemistry sodium 135 potassium 3.2 covered with protocol. BUN of 45 and creatinine 1.7. With significant improvement in the urine flow as well as the BUN and creatinine and renal function estimated GFR for non- 27. On examination: Head was normocephalic and atraumatic. Pupils equal reactive She hadn't oropharynx with upper plate not reporting at and she had a lower natural teeth. It was supple no JVD no thyromegaly no lymphadenopathy. The chest is created bilateral with improvement she had the right dmitriy-diaphragm diaphragm elevation. Her UA was indicating that presence of leukocytosis however found to be mayelin secondary to antibiotic as well as the immune system has been compromised with treatment as well as the she is on TPN. Dr. Chavira infectious disease has been consulted and following the patient. Heart irregular irregularity with the atrial fibrillation fluctuating. No evidence of congestive heart failure. No edema of the lower extremities. Abdomen was positive bowel sounds, distended however softer than yesterday, and encouraged to eat, she had left colostomy with the stools and. And still continued on the TPN the lower extremities and thrombotic inflatable stocking decided that she restarted on her anticoagulation. By cardiology as well as physical care as well as nephrology as well as infectious disease Patient assessment: Patient appears to be gradual improvement, seen by cardiology will adjust medication for her atrial fibrillation. Potassium will be supplemented atraumatically with the protocol. Plan we'll continue the current treatment in the ICU Objective - Vital Signs Vital signs: Vital Signs Temp 97.3 F L 02/28/19 08:00 Pulse 83 02/28/19 11:51 Resp 20 02/28/19 11:00 BP 150/83 02/28/19 11:00 Pulse Ox 93 L 02/28/19 11:00 Intake & Output 02/27/19 02/28/19 02/28/19 18:59 06:59 18:59 Intake Total 2315.917 1510.083 580 Output Total 2505 1725 950 Balance -189.083 -214.917 -370 Weight 76.1 kg 73.1 kg Intake: IV 1210 1320 550 0.9 Normal saline 550 50 PPN 660 720 300 Sodium Chloride 0.9% 1, 550 250 000 ml @ 50 mls/hr IV . Q20H [facility] Rx#:[id number] Intake, IV Titration 1045.917 120.083 Amount Diltiazem 125 mg In 4.917 120.083 Sodium Chloride 0.9% 100 ml @ Per Protocol IV .Q0M [facility] Rx#:[id number] Mvi, Adult No.4 with Vit 1041 K 10 ml Trace (Conc-1Ml/ Dose) 1 ml Sodium Acetate 40 meq Calcium Gluconate 1 gm In Amino Acid 5%- D15w 1,000 ml @ 60 mls/hr IV .[id number] [facility] Rx#: [id number] Tube Feeding 30 70 30 Other 30 Output: Urine 2505 1725 850 Stool 100 Other: Voiding Method Indwelling Catheter Indwelling Catheter Indwelling Catheter - Labs CBC & Chem 7: 02/28/19 05:25 02/28/19 05:25 Labs: Abnormal Lab Results - Last 24 Hours (Table) 02/27/19 02/27/19 02/28/19 Range/Units 17:16 21:17 05:25 RBC (3.80-5.40) m/uL Hgb (11.4-16.0) gm/dL Hct (34.0-46.0) % Plt Count (150-450) k/uL Neutrophils # (Manual) (1.3-7.7) k/uL Sodium 135 L (137-145) mmol/L Potassium 3.2 L (3.5-5.1) mmol/L BUN 45 H (7-17) mg/dL Creatinine 1.75 H (0.52-1.04) mg/dL Glucose 144 H (74-99) mg/dL POC Glucose (mg/dL) 174 H 139 H (75-99) mg/dL 02/28/19 02/28/19 02/28/19 Range/Units 05:25 06:46 11:52 RBC 2.99 L (3.80-5.40) m/uL Hgb 8.7 L (11.4-16.0) gm/dL Hct 26.8 L (34.0-46.0) % Plt Count 676 H (150-450) k/uL Neutrophils # (Manual) 7.84 H (1.3-7.7) k/uL Sodium (137-145) mmol/L Potassium (3.5-5.1) mmol/L BUN (7-17) mg/dL Creatinine (0.52-1.04) mg/dL Glucose (74-99) mg/dL POC Glucose (mg/dL) 166 H 205 H (75-99) mg/dL Microbiology - Last 24 Hours (Table) 02/26/19 15:15 Gram Stain - Preliminary Aspirate Body Fluid Culture - Preliminary 02/25/19 08:50 Urine Culture - Final Urine,Voided Mayelin albicans
[2019-02-28] MEDS: MORPHINE SULFATE 4 MG/ML SYRINGE IVP PRN ×2 (14:12→23:16)
[2019-02-28] MEDS: AMIODARONE 200 MG TAB PO SCH ×2 (14:31→21:21)
--- NOTE | 2019-02-28 15:00 | PN ---
PROGRESS NOTE Patient is seen for followup for chronic kidney disease and acute kidney injury. Her renal function is fairly stable. She is currently maintained on TPN. Creatinine is down to 1.7 from 1.96 yesterday. PHYSICAL EXAMINATION: On examination today, blood pressure is 150/83, heart rate 113 per minute, patient is afebrile. Examination of the heart S1, S2. Examination of the lungs, bilateral breath sounds are heard. Decreased breath sounds at bases. Abdomen is soft. Mild tenderness is noted. DOCK PUMPER exam grossly intact. Examination of lower extremities shows trace edema bilaterally. LAB: 1. Show sodium 135, potassium 3.2, chloride 102 BUN 45, creatinine 1.75, hemoglobin 8.7 g/dL. ASSESSMENT: 1. Acute kidney injury, currently improved, mainly acute tubular necrosis and some degree of hypovolemia. 2. Chronic kidney disease stage IV, baseline creatinine 1.7-1.9 secondary to nephrosclerosis and left renal atrophy. 3. Status post explorative lap with sigmoid colectomy and colostomy, now with an abdominal abscess. 4. Neurogenic bladder with history of self cardiac catheterization. 5. Urinary tract infection with urine culture growing klebsiella and Escherichia coli maintained on antibiotics. 6. Atrial fibrillation, maintained on Lopressor and Cardizem. PLAN: Continue with the TPN if the patient is not eating. Continue to avoid nephrotoxic agents. MMODL / IJN: [id number] /
[2019-02-28 16:52] LABS: Glucose,Whole Blood 179 mg/dL (75-99)
[2019-02-28] MEDS: MVI, ADULT NO.4 WITH VIT K 10 ML, TRACE (CONC-1ML/DOSE) 1 ML, CALCIUM GLUCONATE 1 GM, S... IV SCH ×6 (17:18)
[2019-02-28 20:23] LABS: Glucose,Whole Blood 141 mg/dL (75-99)
[2019-02-28] MEDS: DULoxetine HCL 60 MG CAPSULE.DR PO SCH (21:22)
[2019-02-28] MEDS: ATORVASTATIN 10 MG TAB PO SCH (21:22)
[2019-03-01] MEDS: SODIUM CHLORIDE 0.9% 1,000 ML IV SCH (05:17)
[2019-03-01 05:37] LABS: Magnesium 1.9 mg/dL (1.6-2.3); Phosphorus 2.8 mg/dL (2.5-4.5); Potassium 3.9 mmol/L (3.5-5.1)
[2019-03-01 06:41] LABS: Glucose,Whole Blood 162 mg/dL (75-99)
[2019-03-01] MEDS: MORPHINE SULFATE 4 MG/ML SYRINGE IVP PRN (07:11)
[2019-03-01 07:42] LABS: HCT 24.7 % (34.0-46.0); HGB 8.1 gm/dL (11.4-16.0); Hypochromasia Slight; MCH 30.1 pg (25.0-35.0); MCHC 32.9 g/dL (31.0-37.0); MCV 91.5 fL (80.0-100.0); Mean Platelet Volume 8.2; Platelet Count 601 k/uL (150-450); RDW 14.9 % (11.5-15.5); WBC 11.7 k/uL (3.8-10.6)
[2019-03-01] MEDS: IPRATROPIUM-ALBUTEROL 3 ML NEB INHALATION SCH ×4 (07:44→20:46)
[2019-03-01] MEDS: BUDESONIDE 0.5 MG/2 ML NEBU INHALATION SCH ×2 (07:44→20:46)
[2019-03-01 07:56] LABS: Glucose,Whole Blood 161 mg/dL (75-99)
[2019-03-01] MEDS: INSULIN ASPART (NovoLOG) 100 UNIT/ML VIAL SQ SCH ×4 (08:20→21:12)
[2019-03-01] MEDS: METOPROLOL TARTRATE 50 MG TAB PO SCH ×2 (08:21→21:09)
[2019-03-01] MEDS: APIXABAN 5 MG TAB PO SCH ×2 (08:21→21:11)
[2019-03-01] MEDS: AMIODARONE 200 MG TAB PO SCH ×2 (08:21→21:08)
[2019-03-01] MEDS: PIPERACILLIN-TAZOBACTAM 3.375 GM in SODIUM CHLORIDE 0.9% 100 ML IVPB SCH ×2 (08:22→21:12)
--- NOTE | 2019-03-01 08:47 | P.PN ---
Subjective Progress Note Date: 03/01/19 Principal diagnosis: Acute bowel obstruction status post laparotomy with extensive lysis of adhesions and sigmoid colectomy and end colostomy. The patient is seen today in 02/28/2019 in follow-up in the intensive care unit. She is currently resting comfortably in bed. Awake and alert. She was awake most of the night according to the nursing staff. She is currently on 4 L cannula maintaining O2 saturations in the 90s. She has a 0.9 normal saline at 50 ML's per hour. TPN at 60 ML's per hour. Cardizem drip at 15 mg per hour. She had been resumed on her Eliquis. She is also receiving tube feedings via Dobbhoff on vital AF at 20 ML's per hour with a goal of 55. White count 10.6. Hemoglobin 8.7. Creatinine 1.75. He is continued on bronchodilators, antibiotics in the form of Zosyn. The patient is seen today 03/01/2019 in follow-up in the intensive care unit. She is awake and alert. Resting fairly comfortably in bed. Currently maintaining O2 saturations in the low 90s on 4 L high flow nasal cannula. She remains afebrile. Hemodynamically stable. She converted to sinus rhythm approximate 5 AM this morning. She remains on a Cardizem drip at 15 mg per hour. Anticoagulated with Eliquis. Remains on amiodarone 400 mg twice a day. Receiving 0.9 normal saline at 50 MLS per hour. TPN at 60 ML's per hour. Daily lipids. Vital AF 1.2 at 55 ML's per hour which is goal. Cultures are pending. I count 11.7. Hemoglobin 8.1. Sodium 136. Potassium 3.9. Creatinine 1.74. She remains on DuoNeb inhalations, Pulmicort and Perforomist inhalations, Zosyn. Ostomy functioning. Dressing dry and intact. Objective - Vital Signs Vital signs: Vital Signs Temp 98.0 F 03/01/19 04:00 Pulse 80 03/01/19 07:57 Resp 22 03/01/19 07:00 BP 151/69 03/01/19 07:00 Pulse Ox 93 L 03/01/19 07:00 Intake & Output 02/28/19 03/01/19 03/01/19 18:59 06:59 18:59 Intake Total 1806 1615 110 Output Total 1750 1625 125 Balance 56 -10 -15 Weight 73.1 kg Intake: IV 1320 1420 110 PPN 720 720 60 Piperacillin-Tazobactam 3 100 .375 gm In Sodium Chloride 0.9% 100 ml @ 25 mls/hr IVPB Q12HR [facility] Rx #:[id number] Sodium Chloride 0.9% 1, 600 600 50 000 ml @ 50 mls/hr IV . Q20H [facility] Rx#:[id number] Intake, IV Titration 146 Amount Diltiazem 125 mg In 125 Sodium Chloride 0.9% 100 ml @ Per Protocol IV .Q0M [facility] Rx#:[id number] Fat Emulsion 20% 250 ml @ 21 21 mls/hr IV Q24H [facility] Rx #:[id number] Tube Feeding 280 195 Other 60 Output: Drainage 50 Left Buttock 50 Urine 1575 1625 125 Stool 125 Other: Voiding Method Indwelling Catheter Indwelling Catheter # Voids 1 - Exam GENERAL EXAM: Alert, pleasant, 83-year-old female patient, she is on 4 L nasal cannula, and her pulse ox is 93%, comfortable in no apparent distress. HEAD: Normocephalic/atraumatic. EYES: Normal reaction of pupils, equal size. Conjunctiva pink, sclera white. NOSE: Clear with pink turbinates. Dobbhoff is in place, tolerating tube feeds THROAT: No erythema or exudates. NECK: No masses, no JVD, no thyroid enlargement, no adenopathy. CHEST: No chest wall deformity. Symmetrical expansion. LUNGS: Equal air entry with clear anteriorly, crackles in the posterior bases. CVS: Irregular rate and rhythm, normal S1 and S2, no gallops, no murmurs, no rubs ABDOMEN: Soft, nontender. No hepatosplenomegaly, normal bowel sounds, no guarding or rigidity. Midline incision with maggy intact, colostomy with formed stool EXTREMITIES: No clubbing, no edema, no cyanosis, 2+ pulses and upper and lower extremities. MUSCULOSKELETAL: Muscle strength and tone normal. SPINE: No scoliosis or deformity SKIN: No rashes CENTRAL NERVOUS SYSTEM: No focal deficits, tone is normal in all 4 extremities. PSYCHIATRIC: Alert and oriented -2. Appropriate affect. Intact judgment and insight. - Labs CBC & Chem 7: 03/01/19 04:27 03/01/19 04:27 Labs: Abnormal Lab Results - Last 24 Hours (Table) 02/28/19 02/28/19 02/28/19 Range/Units 11:52 16:50 20:22 WBC (3.8-10.6) k/uL RBC (3.80-5.40) m/uL Hgb (11.4-16.0) gm/dL Hct (34.0-46.0) % Plt Count (150-450) k/uL Sodium (137-145) mmol/L BUN (7-17) mg/dL Creatinine (0.52-1.04) mg/dL Glucose (74-99) mg/dL POC Glucose (mg/dL) 205 H 179 H 141 H (75-99) mg/dL 03/01/19 03/01/19 03/01/19 Range/Units 04:27 04:27 06:40 WBC 11.7 H (3.8-10.6) k/uL RBC 2.70 L (3.80-5.40) m/uL Hgb 8.1 L (11.4-16.0) gm/dL Hct 24.7 L (34.0-46.0) % Plt Count 601 H (150-450) k/uL Sodium 136 L (137-145) mmol/L BUN 42 H (7-17) mg/dL Creatinine 1.74 H (0.52-1.04) mg/dL Glucose 154 H (74-99) mg/dL POC Glucose (mg/dL) 162 H (75-99) mg/dL 03/01/19 Range/Units 07:55 WBC (3.8-10.6) k/uL RBC (3.80-5.40) m/uL Hgb (11.4-16.0) gm/dL Hct (34.0-46.0) % Plt Count (150-450) k/uL Sodium (137-145) mmol/L BUN (7-17) mg/dL Creatinine (0.52-1.04) mg/dL Glucose (74-99) mg/dL POC Glucose (mg/dL) 161 H (75-99) mg/dL Microbiology - Last 24 Hours (Table) 02/26/19 15:15 Gram Stain - Preliminary Aspirate Body Fluid Culture - Preliminary Assessment and Plan Assessment: 1 Abdominal discomfort with constipation and colon obstruction status post posterior laparotomy, extensive lysis of adhesions, sigmoid colectomy, end colostomy. 2 Large fluid collection in the pelvis could be related to an abscess, procedure on 02/26/2019 with 20 mL of serous fluid was removed and sent for pathology. Drainage tube remains in place. 3 Acute hypoxic respiratory failure in the immediate postoperative period requiring BiPAP support. Currently on 4L nasal cannula. 4 Atrial fibrillation with a rapid ventricular response initially on a heparin drip. Currently on hold due to surgery. Currently in sinus rhythm. The plan is for initiation of Eliquis once cleared surgically. 5 Urinary tract infection secondary to Klebsiella pneumoniae and E. coli 6 Lifelong nonsmoker. 7 Hypertension. 8 Hyperlipidemia. 9 Acute on chronic renal failure. Current creatinine 1.74. Plan: The patient was seen and evaluated by Dr. Llanes. She has recently converted back to sinus rhythm. On Cardizem drip. On oral amiodarone. Anticoagulated with Eliquis. Continue with the current treatment plan. Titrating down the PPN. Tolerating vital AF 1.2 feedings. Continue to encourage the use of the incentive spirometer and cough and deep breathing exercises. Keep her here in the intensive care unit. We'll continue to follow and make further rec ommendations based on her clinical status. I, the cosigning physician, performed a history & physical examination of the patient. Lungs sounds are clear anteriorly, crackles in the posterior bases. Maintaining good O2 saturations in the 90s on 4L nasal cannula. I discussed the assessment and plan of care with my nurse practitioner, Jenelle Heaton. I attest to the above consultation as dictated by her.
[2019-03-01] MEDS ORDERED: POTASSIUM CHLORIDE ER 20 MEQ TAB.ER PO STA (11:25)
--- NOTE | 2019-03-01 11:28 | P.PN ---
Progress Note - Text Progress Note Date: 03/01/19 The patient is resting comfortably in bed. She denies any significant planes. She has minimal pain. She is tolerating tube feeds at goal. Her TPN will be weaned today. On exam her vital signs are stable. Abdomen soft. Colostomy is functioning. Incision is clean. Patient will be encouraged to increase more free water. If this is successful we will Hep-Lock her IV.
[2019-03-01 12:02] LABS: Glucose,Whole Blood 145 mg/dL (75-99)
[2019-03-01] MEDS: MVI, ADULT NO.4 WITH VIT K 10 ML, TRACE (CONC-1ML/DOSE) 1 ML, CALCIUM GLUCONATE 1 GM, S... IV SCH ×6 (12:24)
--- NOTE | 2019-03-01 13:02 | PN ---
PROGRESS NOTE Patient is seen for followup for chronic kidney disease. She did have acute kidney injury. Renal function has improved. The patient is trying to increase her oral intake between tube feedings, diet and TPN. PHYSICAL EXAMINATION: On examination today, blood pressure was 151/69, heart rate 78 per minute, patient is afebrile. Examination of the heart S1, S2. Examination of the lungs, bilateral breath sounds are heard. Abdomen is soft, non-tender. Examination of lower extremities shows trace edema bilaterally. BUFFING WHEEL OPERATOR exam grossly intact. LABS: Show sodium 136, potassium 3.9, chloride 105, BUN 42, creatinine 1.74, hemoglobin 8.1 g/dL, phosphorus 2.8, magnesium 1.9. ASSESSMENT: 1. Acute kidney injury, nonoliguric, currently improved. Renal function at baseline. 2. Chronic kidney disease, stage IV, secondary to nephrosclerosis and left renal atrophy. Creatinine 1.7 to 1.9 mg/dL at baseline. 3. Status post explorative laparotomy with sigmoid colectomy and colostomy and abdominal abscess, currently with a drain. 4. History of neurogenic bladder with self catheterization prior to admission. 5. Urinary tract infection, maintained on antibiotics. 6. Atrial fibrillation, maintained on Cardizem and Lopressor. 7. Hypokalemia, status post replacement. PLAN: Replace potassium. Continue to avoid nephrotoxic agents. MMODL / IJN: [id number] /
--- NOTE | 2019-03-01 13:04 | P.PN ---
Subjective Progress Note Date: 03/01/19 This 82-year-old female with history of hypertension and diastolic congestive heart failure and paroxysmal atrial fibrillation had a colectomy laparoscopically. Patient is not complaining of abdominal pain but complains of shortness of breath. She is in atrial fibrillation with controlled and corresponds. Her blood pressure is about 110. Patient is on Catapres along with metoprolol. She is also on Eliquis. I will increase the dose of the metoprolol and the heart rate is controlled, we'll may discontinue Cardizem. Lungs examination shows diminished breath sounds at bases. Heart is irregular. We'll follow the 02/17/2019: This patient is to intensive care unit. Patient still complaining of abdominal discomfort. Has been coughing and having some dysphagia difficulties. Patient remains in atrial fibrillation with controlled ventricular response. She is on metoprolol and also anti-cognition therapy with Eliquis 2.5 mg by mouth twice a day. Patient is status post abdominal surgery with removal of significant adhesions and also colectomy and colostomy. She is progressing slowly. Request pulmonary toilet. We'll continue current medical therapy. We will follow. 02/18/2019:. Patient claims she is feeling slightly better. Patient is in atrial fibrillation with moderate to rapid ventricle response. I'm going to increase the dose of the metoprolol. Patient is on anticoagulation therapy. However, patient is having blood in the urine. Urology is could evaluate the patient. We'll going to hold anti-cognition therapy temporarily. Rest of the management as per the surgeon's 02/19/2019: Patient's appear to be slightly better. Denies any chest pain or shortness of breath. Patient heart rate is in the 120s to 130s. She is on metoprolol 50 mg by mouth 3 times a day. She is not on IV Cardizem. She is on anticoagulation therapy. I'm going to add oral Cardizem 60 mg by mouth 3 times a day. Lungs appeared to be relatively clear. Heart is regular. We'll follow 02/27/2019: This patient is confused. Alert and doesn't appear to be in acute distress. Patient had drainage of intra-abdominal abscess. Yesterday. She is in sinus rhythm. Tolerating oral metoprolol. Continue current medical therapy. We'll resume Eliquis. 02/28: The patient remains in the intensive care unit. Her heart rate this morning is running between 125 and 145. Lopressor was increased to 50 mg 3 times daily and patient remains on Cardizem drip at 15. Blood pressure 143/86. Heart had monitor atrial fibrillation. Patient was resumed on eliquis yesterday. BUN 45, creatinine 1.75, hemoglobin 8.7. 03/01: Patient remains in the intensive care unit. Patient was started on amiodar one and change dose of Lopressor yesterday and this morning she converted to a sinus rhythm around 5 AM. Heart rate is now running in the 80s. Cardizem is down to 10 mics. 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 Hemoglobin is stable at 8.1. She has no appetite and is eating very little. Dobbhoff remains in place. Objective - Vital Signs Vital signs: Vital Signs Temp 98.0 F 03/01/19 04:00 Pulse 80 03/01/19 07:57 Resp 22 03/01/19 07:00 BP 151/69 03/01/19 07:00 Pulse Ox 93 L 03/01/19 07:00 Intake & Output 02/28/19 03/01/19 03/01/19 18:59 06:59 18:59 Intake Total 1806 1615 235 Output Total 1750 1625 125 Balance 56 -10 110 Weight 73.1 kg Intake: IV 1320 1420 110 PPN 720 720 60 Piperacillin-Tazobactam 3 100 .375 gm In Sodium Chloride 0.9% 100 ml @ 25 mls/hr IVPB Q12HR [facility] Rx #:[id number] Sodium Chloride 0.9% 1, 600 600 50 000 ml @ 50 mls/hr IV . Q20H [facility] Rx#:[id number] Intake, IV Titration 146 125 Amount Diltiazem 125 mg In 125 125 Sodium Chloride 0.9% 100 ml @ Per Protocol IV .Q0M [facility] Rx#:[id number] Fat Emulsion 20% 250 ml @ 21 21 mls/hr IV Q24H [facility] Rx #:[id number] Tube Feeding 280 195 Other 60 Output: Drainage 50 Left Buttock 50 Urine 1575 1625 125 Stool 125 Other: Voiding Method Indwelling Catheter Indwelling Catheter # Voids 1 - Exam GENERAL EXAM: Patient is alert but confused. Sitter is at bedside. HEENT: Normocephalic. Normal reaction of pupils, equal size, normal range of extraocular motion. Dobbhoff in place. NECK: No masses, no nuchal rigidity. CHEST: No chest wall deformity. LUNGS: Diminished breath sounds at bases HEART: Irregular rhythm, S1 and S2 normal with no audible mumurs or gallops. ABDOMEN: Postsurgical with colostomy, normal bowel sounds, Murphy catheter with red tinged urine and blood clots. SKIN: No rashes CENTRAL NERVOUS SYSTEM: No focal deficits. Patient is awake and alert but noted to be confused. EXTREMITIES: No cyanosis, clubbing or edema. Dorsalis pedis +2 bilaterally. - Labs CBC & Chem 7: 03/01/19 04:27 03/01/19 04:27 Labs: Abnormal Lab Results - Last 24 Hours (Table) 02/28/19 02/28/19 02/28/19 Range/Units 11:52 16:50 20:22 WBC (3.8-10.6) k/uL RBC (3.80-5.40) m/uL Hgb (11.4-16.0) gm/dL Hct (34.0-46.0) % Plt Count (150-450) k/uL Sodium (137-145) mmol/L BUN (7-17) mg/dL Creatinine (0.52-1.04) mg/dL Glucose (74-99) mg/dL POC Glucose (mg/dL) 205 H 179 H 141 H (75-99) mg/dL 03/01/19 03/01/19 03/01/19 Range/Units 04:27 04:27 06:40 WBC 11.7 H (3.8-10.6) k/uL RBC 2.70 L (3.80-5.40) m/uL Hgb 8.1 L (11.4-16.0) gm/dL Hct 24.7 L (34.0-46.0) % Plt Count 601 H (150-450) k/uL Sodium 136 L (137-145) mmol/L BUN 42 H (7-17) mg/dL Creatinine 1.74 H (0.52-1.04) mg/dL Glucose 154 H (74-99) mg/dL POC Glucose (mg/dL) 162 H (75-99) mg/dL 03/01/19 Range/Units 07:55 WBC (3.8-10.6) k/uL RBC (3.80-5.40) m/uL Hgb (11.4-16.0) gm/dL Hct (34.0-46.0) % Plt Count (150-450) k/uL Sodium (137-145) mmol/L BUN (7-17) mg/dL Creatinine (0.52-1.04) mg/dL Glucose (74-99) mg/dL POC Glucose (mg/dL) 161 H (75-99) mg/dL Microbiology - Last 24 Hours (Table) 02/26/19 15:15 Gram Stain - Preliminary Aspirate Body Fluid Culture - Preliminary Assessment and Plan Plan: Assessment: Paroxysmal atrial fibrillation Hypertension Chronic diastolic heart failure Small bowel obstruction status post surgical intervention with colostomy Chronic diastolic heart failure Plan: Continue Lopressor 100 mg twice daily and amiodarone 400 mg oral twice daily Discontinue Cardizem drip. Continue eliquis 5 mg twice daily Further recommendations to follow based upon clinical course. [employer]ICA[employer] BILLING [employer]IST note has been reviewed, I agree with documented findings and plan of care. Patient was seen and examined.
[2019-03-01] MEDS: METOCLOPRAMIDE 5 MG/ML 2 ML VIAL IVP PRN (13:35)
--- NOTE | 2019-03-01 15:33 | P.PN ---
Subjective Progress Note Date: 03/01/19 Principal diagnosis: mechanical obstruction with small bowel and distended abdomen with history of adhesions in the past. The progress note dictated on 02/08/2090 by Patient with history notable bowel movement or stool or passing flatus for more than one week duration x-ray indicating small bowel mechanical obstruction. And patient currently nothing by mouth with NG tube which she did some relief. Her vital sign temperature 90.8 orally F Fahrenheit and her pulse rate 80 and she developed on the surgical floor atrial fibrillation with a rate of 1:30 P 8/m patient transferred to court monitor floor with cardiology consultation which she was started on cardiac exam drip. And seen by Dr. ISATU Zamudio. Respiratory rate 16 and her blood pressure is hypertensive in spite of trial of medication 187/84. She is on nasal cannula 2 L of oxygen with a pulse ox 95%. current laboratories indicating that her WBC 5.3 with a hemoglobin 11.6, her platelet count 414.next is her PTT 32.6with the normal range 30.6. Minimally elevated. Chemistry indicating sodium 144 potassium 3.8 chloride 108 carbon dioxid 28, anion gap 8, BUN 20, creatinine 1.94, EGFR 23 with chronic kidney disease stage IV. Glucose 131AST and LT normal alk phos 137 total protein 6.1 and albumin 3.4 thyroid function is normal and the free T3 some little bit lower than normal that is because of her illness Nephrology evaluation and assessment indicating patient with the UTI Klebsiella pneumonia and E. coli treated according to the culture with the assessment acute kidney injury possibly prerenal improved with hydration. Chronic kidney disease stage IV with the creatinine near 2 secondary to hydronephrosis and left renal atrophy. #3 abdominal pain with questionable diverticulitis and chronic obstruction and NG tube for decompression. Neurogenic bladder and uses a catheterization 4-5 a day metabolic acidosis and she is on bicarb hypertension is controlled and UTI. Physical exam patient status post barium enema and patient the result reviewed by Dr. Sahu and his impression will be discussed with the family. HEENT was negative neck was supple and chest was clear and the heart was currently controlled atrophic And abdomen is tender distended and with the small bowel obstruction extremities no edema. Assessment small bowel obstruction mechanical and high fall to the patient should have surgical intervention. However this is a surgical case and up to the family and the surgeon. Progress note date of service 03/01/2019. Dictation by Dr. Engel. Patient is conscious alert but confused intermittently with the underlying biliary. She still did not feel good Colostomy bag does have a air which is a good sign that she passing the air with the distention of the abdomen has been gradual improvement. White count 11.7, her hemoglobin 8.1, and her platelet count 601. Chemistry: Sodium 136 potassium 3.9 chloride 105 carbon dioxide 26, her BUN is 42 his has been improving and a creatinine 1.74. Her glucose 154. And the gradually decreasing the TPN which will improve her hyperglycemia significantly. Her magnesium is 1.9, and the phosphorus 2.8,. Temperature 90.8 F oral and pulse rate is 88-77 with the underlying reverts to sinus rhythm from atrial fibrillation and cardia Clemencia has been discontinued by the surgeon as well as the [place] patch. Her pulse ox is 93 with the FiO2 4 L per minute flow rate. Her blood pressure 151/69 with a mean 96 stable. Lost chest x-ray was done on 02/27/2019, with the changes no change from atelectasis elevated right hemidiaphragm and cardiomegaly, we no echocardiogram indicating normal ejection fraction 55-60% and increased LAUP grade 2 diastolic dysfunction., Mild to moderate aortic regurgitation mitral annular calcificat ion mild and moderate mitral regurg, mild pulmonary hypertension with the right ventricular systolic pressure measured 40.09 mmHg. This echocardiogram done on 02/11/2019 with the at that time she had sinus rhythm and she had mild concentric left ventricular hypertrophy. And enteral atrial and Intal ventricular septum intact. The echo read by Dr. Ash cardiology. Patient admitted to the hospital on 04/10/2018 through the emergency room as she presented with distention and no bowel movement and abdominal pain. Patient seen with several consult on #1 GI doctor Chey Valentine. #2 genitourinary, Dr. Alex ling urologist. #[address] Soham Sahu for the acute abdomen and small bowel obstruction. #4 nephrology with the underlying stage IV kidney disease Dr. Arrington,. #5 cardiology consult in 02/11/2019. The underlying atrial fibrillation. #6 exploratory laparotomy of sigmoid colectomy with end colostomy on 02/13/2019 #09/05 2018 pulmonary consult ICU. Seen by pulmonary and critical care. #8 computed tomography scan of the chest was ordered by Jenelle jaffe pulmonary and critical care nurse practitioner. 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 On exam today: Patient stable generally The head was normocephalic atraumatic, pupil was reactive, oropharynx only lower natural teeth and she had the Dobbhoff tube for feeding admitted to once to eat and she was prescribed dronabinol 5 mg by mouth twice a day for appetite by the critical care. Neck was supple no lymph no lymph nodes. Chest: Created bilaterally with the right hemidiaphragm elevation segmental atelectasis. Cardiology she has now sinus rhythm with the range of 80 bpm and the cardiac exam has been discontinued as well as the Duragesic patch. GI she has improvement on the colostomy bag with the stools and a air, abdomen is softer no severe tenderness with palpation. Extremities no edema and positive pulses. Assessment: Patient is improving clinically in ICU. TPN gradual weaning. She still have the Murphy catheter with hematuria. The dysphagia possibility associated with thrush we'll start her on nystatin swish and swallow. Patient had Selin in the urine with the chronic antibiotic currently Zosyn. Dr. Tsai following the patient is infectious disease as well Plan continue the current treatment and added the nystatin swish and swallow. Objective - Vital Signs Vital signs: Vital Signs Temp 98.0 F 03/01/19 04:00 Pulse 77 03/01/19 11:29 Resp 22 03/01/19 07:00 BP 151/69 03/01/19 07:00 Pulse Ox 93 L 03/01/19 07:00 Intake & Output 02/28/19 03/01/19 03/01/19 18:59 06:59 18:59 Intake Total 1806 1615 235 Output Total 1750 1625 125 Balance 56 -10 110 Weight 73.1 kg 73.1 kg Intake: IV 1320 1420 110 PPN 720 720 60 Piperacillin-Tazobactam 3 100 .375 gm In Sodium Chloride 0.9% 100 ml @ 25 mls/hr IVPB Q12HR [facility] Rx #:[id number] Sodium Chloride 0.9% 1, 600 600 50 000 ml @ 50 mls/hr IV . Q20H [facility] Rx#:[id number] Intake, IV Titration 146 125 Amount Diltiazem 125 mg In 125 125 Sodium Chloride 0.9% 100 ml @ Per Protocol IV .Q0M [facility] Rx#:[id number] Fat Emulsion 20% 250 ml @ 21 21 mls/hr IV Q24H [facility] Rx #:[id number] Tube Feeding 280 195 Other 60 Output: Drainage 50 Left Buttock 50 Urine 1575 1625 125 Stool 125 Other: Voiding Method Indwelling Catheter Indwelling Catheter # Voids 1 - Labs CBC & Chem 7: 03/01/19 04:27 03/01/19 04:27 Labs: Abnormal Lab Results - Last 24 Hours (Table) 02/28/19 02/28/19 03/01/19 Range/Units 16:50 20:22 04:27 WBC (3.8-10.6) k/uL RBC (3.80-5.40) m/uL Hgb (11.4-16.0) gm/dL Hct (34.0-46.0) % Plt Count (150-450) k/uL Sodium 136 L (137-145) mmol/L BUN 42 H (7-17) mg/dL Creatinine 1.74 H (0.52-1.04) mg/dL Glucose 154 H (74-99) mg/dL POC Glucose (mg/dL) 179 H 141 H (75-99) mg/dL 03/01/19 03/01/19 03/01/19 Range/Units 04:27 06:40 07:55 WBC 11.7 H (3.8-10.6) k/uL RBC 2.70 L (3.80-5.40) m/uL Hgb 8.1 L (11.4-16.0) gm/dL Hct 24.7 L (34.0-46.0) % Plt Count 601 H (150-450) k/uL Sodium (137-145) mmol/L BUN (7-17) mg/dL Creatinine (0.52-1.04) mg/dL Glucose (74-99) mg/dL POC Glucose (mg/dL) 162 H 161 H (75-99) mg/dL 01/05/20 Range/Units 12:01 WBC (3.8-10.6) k/uL RBC (3.80-5.40) m/uL Hgb (11.4-16.0) gm/dL Hct (34.0-46.0) % Plt Count (150-450) k/uL Sodium (137-145) mmol/L BUN (7-17) mg/dL Creatinine (0.52-1.04) mg/dL Glucose (74-99) mg/dL POC Glucose (mg/dL) 145 H (75-99) mg/dL Microbiology - Last 24 Hours (Table) 02/26/19 15:15 Gram Stain - Preliminary Aspirate Body Fluid Culture - Preliminary
[2019-03-01 16:49] LABS: Glucose,Whole Blood 158 mg/dL (75-99)
[2019-03-01] MEDS ORDERED: ANIDULAFUNGIN 200 MG in SODIUM CHLORIDE 0.9% 200 ML IVPB ONE (17:00)
[2019-03-01] MEDS: NYSTATIN 100,000 UNIT/ML SUSP 500,000 UNIT/5 ML CUP PO SCH ×2 (17:47→22:24)
[2019-03-01] MEDS: DRONABINOL 2.5 MG CAP PO SCH ×2 (17:48→18:41)
[2019-03-01 19:03] LABS: Appearance,Urine Clear (Clear); Bacteria,Urine Rare /hpf; Bilirubin,Urine Negative (Negative); Blood,Urine Small (Negative); Color,Urine Yellow; Glucose,Urine (UA) Negative (Negative); Hyaline Casts,Urine 1 /lpf (0-2); Ketones,Urine Negative (Negative); Leukocyte Esterase,Urine Moderate (Negative); Mucus,Urine Rare /hpf; Nitrite,Urine Negative (Negative); Protein,Urine Trace (Negative); RBC,Urine 13 /hpf (0-5); Specific Gravity,Urine 1.012 (1.001-1.035); Squamous Epithelial Cell,Urine <1 /hpf (0-4); Urobilinogen,Urine <2.0 mg/dL (<2.0); WBC,Urine 33 /hpf (0-5)
--- NOTE | 2019-03-01 19:08 | PN ---
PROGRESS NOTE DATE OF SERVICE: 03/01/2019 REASON FOR FOLLOWUP: 1. Perforated diverticulitis with concern for abscess. 2. Positive urine culture with Selin. INTERVAL HISTORY: The patient is currently afebrile. The patient is breathing comfortably. The patient remains to be lethargic and did not provide any history. No nausea, vomiting or diarrhea reported by nursing staff. On examination, blood pressure 151/69 with a pulse of 73, temperature 98. She is 93% on 4 L nasal cannula. General description is an elderly female up in the chair in no distress. Respiratory system: Unlabored breathing, clear to auscultation anteriorly. Heart S1, S2. Regular rate and rhythm. Abdomen soft, no tenderness. Extremities: Some trace edema of the feet. LABS: Hemoglobin 8.1, white count 11.7, BUN of 42, creatinine 1.74. The abdominal fluid culture has been negative so far. Urine with Selin albicans. DIAGNOSTIC IMPRESSION AND PLAN: 1. Patient with perforated diverticulitis in this patient, status post laparotomy and diverting colostomy with abdominal fluid collection that has been CT-guided drained but did not show any evidence of secondary infection with cultures remaining to be negative. Patient is currently covered with Zosyn. 2. The patient did have positive urine culture with Selin, possibly Murphy colonization ( ) for underlying urinary tract infection. Murphy will be changed. A repeat UA will be obtained. We will add ( ) as Diflucan cannot be added because of the medication she is on. If the repeat UA is negative, ( ) will be discontinued. Plan of care was discussed with the admitting physician. ELANA / TIFFN: [id number] /
[2019-03-01 20:45] LABS: Glucose,Whole Blood 108 mg/dL (75-99)
[2019-03-01] MEDS: DULoxetine HCL 60 MG CAPSULE.DR PO SCH (21:11)
[2019-03-01] MEDS: ATORVASTATIN 10 MG TAB PO SCH (21:11)
[2019-03-01] MEDS: ACETAMINOPHEN TAB 325 MG TAB PO PRN (21:11)
[2019-03-02] MEDS: METOCLOPRAMIDE 5 MG/ML 2 ML VIAL IVP PRN (01:08)
[2019-03-02] MEDS: SODIUM CHLORIDE 0.9% 1,000 ML IV SCH ×2 (01:08→20:44)
[2019-03-02 05:27] LABS: Calcium 9.3 mg/dL (8.4-10.2); Magnesium 1.9 mg/dL (1.6-2.3); Potassium 3.7 mmol/L (3.5-5.1)
[2019-03-02 07:08] LABS: Glucose,Whole Blood 139 mg/dL (75-99)
[2019-03-02] MEDS: IPRATROPIUM-ALBUTEROL 3 ML NEB INHALATION SCH ×4 (07:11→20:08)
[2019-03-02] MEDS: BUDESONIDE 0.5 MG/2 ML NEBU INHALATION SCH ×2 (07:11→20:08)
[2019-03-02] MEDS: INSULIN ASPART (NovoLOG) 100 UNIT/ML VIAL SQ SCH ×4 (07:27→21:09)
[2019-03-02 07:35] LABS: HCT 26.7 % (34.0-46.0); HGB 8.4 gm/dL (11.4-16.0); Hypochromasia Moderate; MCHC 31.2 g/dL (31.0-37.0); MCV 92.9 fL (80.0-100.0); Mean Platelet Volume 7.9; Platelet Count 516 k/uL (150-450); RBC 2.88 m/uL (3.80-5.40)
[2019-03-02] MEDS: ANIDULAFUNGIN 100 MG in SODIUM CHLORIDE 0.9% 100 ML IVPB SCH (08:32)
[2019-03-02] MEDS: APIXABAN 5 MG TAB PO SCH (08:33)
[2019-03-02] MEDS: DRONABINOL 2.5 MG CAP PO SCH ×2 (08:33→17:41)
[2019-03-02] MEDS: PIPERACILLIN-TAZOBACTAM 3.375 GM in SODIUM CHLORIDE 0.9% 100 ML IVPB SCH ×2 (08:33→20:39)
[2019-03-02] MEDS: METOPROLOL TARTRATE 50 MG TAB PO SCH ×3 (08:34→20:39)
[2019-03-02] MEDS: NYSTATIN 100,000 UNIT/ML SUSP 500,000 UNIT/5 ML CUP PO SCH ×4 (08:34→22:33)
[2019-03-02] MEDS: AMIODARONE 200 MG TAB PO SCH ×2 (08:34→20:38)
[2019-03-02] MEDS ORDERED: POTASSIUM CHLORIDE ER 20 MEQ TAB.ER PO STA (09:08)
--- NOTE | 2019-03-02 09:33 | P.PN ---
Subjective Patient is seen in follow-up for acute kidney injury on chronic kidney disease. Renal function is stable. She is nonoliguric. Underwent exploratory laparotomy with sigmoid colectomy and end colostomy this admission. She is maintained on tube feeding and IV fluids. Oral intake remains poor. Vital signs are stable. General: The patient appeared well nourished and normally developed. HEENT: Head exam is unremarkable. Neck is without jugular venous distension. LUNGS: Lungs are clear to auscultation and percussion. Breath sounds decreased. HEART: Rate and Rhythm are regular. First and second heart sounds normal. No murmurs, rubs or gallops. ABDOMEN: Bowel sounds present. Soft. EXTREMITITES: No clubbing, cyanosis, or edema. Objective - Vital Signs Vital signs: Vital Signs Temp 98.2 F 03/02/19 04:00 Pulse 102 H 03/02/19 07:28 Resp 19 03/02/19 07:00 BP 166/96 03/02/19 07:00 Pulse Ox 96 03/02/19 07:00 Intake & Output 03/01/19 03/02/19 03/02/19 18:59 06:59 18:59 Intake Total 2260 1470 105 Output Total 1725 1355 100 Balance 535 115 5 Weight 73.1 kg 72.8 kg Intake: IV 1240 700 50 PPN 540 Piperacillin-Tazobactam 3 100 100 .375 gm In Sodium Chloride 0.9% 100 ml @ 25 mls/hr IVPB Q12HR [facility] Rx #:[id number] Sodium Chloride 0.9% 1, 600 600 50 000 ml @ 50 mls/hr IV . Q20H [facility] Rx#:[id number] Intake, IV Titration 325 Amount Anidulafungin 200 mg In 200 Sodium Chloride 0.9% 200 ml @ 84 mls/hr [facility] Rx#:[id number] Diltiazem 125 mg In 125 Sodium Chloride 0.9% 100 ml @ Per Protocol IV .Q0M [facility] Rx#:[id number] Tube Feeding 605 770 55 Other 90 Output: Drainage 25 Left Buttock 25 Urine 1450 1355 100 Stool 250 Other: Voiding Method Indwelling Catheter Indwelling Catheter - Labs CBC & Chem 7: 03/02/19 04:58 03/02/19 04:58 Labs: Abnormal Lab Results - Last 24 Hours (Table) 03/01/19 03/01/19 03/01/19 Range/Units 12:01 16:48 18:20 WBC (3.8-10.6) k/uL RBC (3.80-5.40) m/uL Hgb (11.4-16.0) gm/dL Hct (34.0-46.0) % Plt Count (150-450) k/uL Chloride (98-107) mmol/L BUN (7-17) mg/dL Creatinine (0.52-1.04) mg/dL Glucose (74-99) mg/dL POC Glucose (mg/dL) 145 H 158 H (75-99) mg/dL Urine Protein Trace H (Negative) Urine Blood Small H (Negative) Ur Leukocyte Esterase Moderate H (Negative) Urine RBC 13 H (0-5) /hpf Urine WBC 33 H (0-5) /hpf Urine Bacteria Rare H (None) /hpf Urine Mucus Rare H (None) /hpf 03/01/19 03/02/19 03/02/19 Range/Units 20:43 04:58 04:58 WBC 12.0 H (3.8-10.6) k/uL RBC 2.88 L (3.80-5.40) m/uL Hgb 8.4 L (11.4-16.0) gm/dL Hct 26.7 L (34.0-46.0) % Plt Count 516 H (150-450) k/uL Chloride 111 H (98-107) mmol/L BUN 44 H (7-17) mg/dL Creatinine 1.70 H (0.52-1.04) mg/dL Glucose 120 H (74-99) mg/dL POC Glucose (mg/dL) 108 H (75-99) mg/dL Urine Protein (Negative) Urine Blood (Negative) Ur Leukocyte Esterase (Negative) Urine RBC (0-5) /hpf Urine WBC (0-5) /hpf Urine Bacteria (None) /hpf Urine Mucus (None) /hpf 03/02/19 Range/Units 07:07 WBC (3.8-10.6) k/uL RBC (3.80-5.40) m/uL Hgb (11.4-16.0) gm/dL Hct (34.0-46.0) % Plt Count (150-450) k/uL Chloride (98-107) mmol/L BUN (7-17) mg/dL Creatinine (0.52-1.04) mg/dL Glucose (74-99) mg/dL POC Glucose (mg/dL) 139 H (75-99) mg/dL Urine Protein (Negative) Urine Blood (Negative) Ur Leukocyte Esterase (Negative) Urine RBC (0-5) /hpf Urine WBC (0-5) /hpf Urine Bacteria (None) /hpf Urine Mucus (None) /hpf Microbiology - Last 24 Hours (Table) 03/01/19 18:20 Urine Culture - Preliminary Urine,Catheterized Assessment and Plan Plan: Assessment: 1. Acute kidney injury secondary to ATN. Improving with IV hydration. Renal function stable - creatinine 1.7 today. 2. Chronic kidney disease stage IV with baseline creatinine near 1.7-1.9 secondary to nephrosclerosis and left renal atrophy. 3. S/p exp lap with sigmoid colectomy and end colostomy 02/12/19. Maintained on TPN. Now has abdominal abscess and is scheduled for drainage today. 4. Neurogenic bladder. Patient performs self catheterizations 4-5 times daily. Now has Murphy. 5. Metabolic acidosis secondary to acute kidney injury. Stable. 6. Hypertension with chronic kidney disease. 7. UTI with urine culture positive for Klebsiella and E. coli maintained on antibiotics. 8. Hyponatremia secondary to poor solute intake. Better. 9. A-fib maintained on Lopressor and Cardizem. Plan: Maintain normal saline at 50 mL an hour. Maintain tube feeding. Avoid nephrotoxins. Continue to monitor renal function and urine output.
--- NOTE | 2019-03-02 10:15 | PN ---
PROGRESS NOTE Mrs. Ling is in atrial fibrillation rate, is faster in the 120-130 range, hemodynamically stable. Denies any chest pain. Her vitals are stable. There was a question of sepsis and she is again back on antibiotics. Cultures are so far negative from the blood heart rate is faster than usual. S1-S2 heard normally. irregular rhythm noted, short systolic murmur noted. Lungs reveal fair air entry. abdomen is soft. The rest of physical exam is unchanged. I am recommending that we increase metoprolol tartrate to 100 mg t.i.d. continue antibiotics and other supportive care. Prognosis remains guarded. MMODL / IJN: [id number] /
--- NOTE | 2019-03-02 10:42 | P.PN ---
<Siobhan Dugan Tiffany - Last Filed: 03/02/19 10:45> Subjective Progress Note Date: 03/02/19 CHIEF COMPLAINT: Abdominal pain HISTORY OF PRESENT ILLNESS: Patient is status post exploratory laparotomy, extensive lysis of adhesions, sigmoid colectomy, and end colostomy on 02/12/19. Patient examined at the bedside. Dobbhoff remains intact. She is receiving tube feedings at goal. Tolerating well. TPN has been weaned off. Oral intake remains poor. She denies abdominal pain. WBC 12.0. PHYSICAL EXAM: VITAL SIGNS: Reviewed GENERAL: Well-developed in no acute distress. CHEST: Non-labored respirations and equal bilateral excursions. ABDOMEN: Soft. Nondistended. Dressing to abdomen clean dry intact. Ostomy with brown liquid stool noted. Drainage bag with serosanguineous drainage. PSYCH: Appropriate affect. Alert and oriented to person only. SKIN: Well perfused. Good skin turgor. ASSESSMENT: 1. Abdominal pain, status post exploratory laparotomy, extensive lysis of adhesions, sigmoid colectomy, and end colostomy 2. Intrapelvic fluid collection PLAN: Continue dressing changes. Continue tube feedings. Oral intake as tolerated. Monitor output from drainage collection bag Nurse practitioner note has been reviewed by physician. Signing provider agrees with the documented findings, assessment, and plan of care. Objective - Vital Signs Vital signs: Vital Signs Temp 98.2 F 03/02/19 04:00 Pulse 102 H 03/02/19 07:28 Resp 19 03/02/19 07:00 BP 166/96 03/02/19 07:00 Pulse Ox 96 03/02/19 07:00 Intake & Output 03/01/19 03/02/19 03/02/19 18:59 06:59 18:59 Intake Total 2260 1470 105 Output Total 1725 1355 100 Balance 535 115 5 Weight 73.1 kg 72.8 kg Intake: IV 1240 700 50 PPN 540 Piperacillin-Tazobactam 3 100 100 .375 gm In Sodium Chloride 0.9% 100 ml @ 25 mls/hr IVPB Q12HR [facility] Rx #:[id number] Sodium Chloride 0.9% 1, 600 600 50 000 ml @ 50 mls/hr IV . Q20H [facility] Rx#:[id number] Intake, IV Titration 325 Amount Anidulafungin 200 mg In 200 Sodium Chloride 0.9% 200 ml @ 84 mls/hr IVPB ONCE ONE Rx#:[id number] Diltiazem 125 mg In 125 Sodium Chloride 0.9% 100 ml @ Per Protocol IV .Q0M [facility] Rx#:[id number] Tube Feeding 605 770 55 Other 90 Output: Drainage 25 Left Buttock 25 Urine 1450 1355 100 Stool 250 Other: Voiding Method Indwelling Catheter Indwelling Catheter - Labs CBC & Chem 7: 03/02/19 04:58 03/02/19 04:58 Labs: Abnormal Lab Results - Last 24 Hours (Table) 03/01/19 03/01/19 03/01/19 Range/Units 12:01 16:48 18:20 WBC (3.8-10.6) k/uL RBC (3.80-5.40) m/uL Hgb (11.4-16.0) gm/dL Hct (34.0-46.0) % Plt Count (150-450) k/uL Chloride (98-107) mmol/L BUN (7-17) mg/dL Creatinine (0.52-1.04) mg/dL Glucose (74-99) mg/dL POC Glucose (mg/dL) 145 H 158 H (75-99) mg/dL Urine Protein Trace H (Negative) Urine Blood Small H (Negative) Ur Leukocyte Esterase Moderate H (Negative) Urine RBC 13 H (0-5) /hpf Urine WBC 33 H (0-5) /hpf Urine Bacteria Rare H (None) /hpf Urine Mucus Rare H (None) /hpf 03/01/19 03/02/19 03/02/19 Range/Units 20:43 04:58 04:58 WBC 12.0 H (3.8-10.6) k/uL RBC 2.88 L (3.80-5.40) m/uL Hgb 8.4 L (11.4-16.0) gm/dL Hct 26.7 L (34.0-46.0) % Plt Count 516 H (150-450) k/uL Chloride 111 H (98-107) mmol/L BUN 44 H (7-17) mg/dL Creatinine 1.70 H (0.52-1.04) mg/dL Glucose 120 H (74-99) mg/dL POC Glucose (mg/dL) 108 H (75-99) mg/dL Urine Protein (Negative) Urine Blood (Negative) Ur Leukocyte Esterase (Negative) Urine RBC (0-5) /hpf Urine WBC (0-5) /hpf Urine Bacteria (None) /hpf Urine Mucus (None) /hpf 03/02/19 Range/Units 07:07 WBC (3.8-10.6) k/uL RBC (3.80-5.40) m/uL Hgb (11.4-16.0) gm/dL Hct (34.0-46.0) % Plt Count (150-450) k/uL Chloride (98-107) mmol/L BUN (7-17) mg/dL Creatinine (0.52-1.04) mg/dL Glucose (74-99) mg/dL POC Glucose (mg/dL) 139 H (75-99) mg/dL Urine Protein (Negative) Urine Blood (Negative) Ur Leukocyte Esterase (Negative) Urine RBC (0-5) /hpf Urine WBC (0-5) /hpf Urine Bacteria (None) /hpf Urine Mucus (None) /hpf Microbiology - Last 24 Hours (Table) 03/01/19 18:20 Urine Culture - Preliminary Urine,Catheterized <Soham Miller - Last Filed: 03/02/19 14:43> Subjective Principal diagnosis: Colonic obstruction As above. Patient seemed to be improving slowly. Pulmonary status definitely better. Appetite remains poor. Tolerating tube feeds at goal. Better ostomy function. Murphy catheter was replaced and x-ray was ordered to check the placement since previously the balloon had been present inflated in the right ureter. Today's x-ray once again shows the Murphy catheter likely be present in the right ureter. Nursing staff will contact urology. We'll then have balloon deflated with catheter being withdrawn. Continue physical therapy. May transfer out of ICU from my standpoint. Objective - Vital Signs Vital signs: Vital Signs Temp 98.2 F 03/02/19 04:00 Pulse 108 H 03/02/19 11:05 Resp 19 03/02/19 07:00 BP 166/96 03/02/19 07:00 Pulse Ox 96 03/02/19 07:00 Intake & Output 03/01/19 03/02/19 03/02/19 18:59 06:59 18:59 Intake Total 2260 1470 105 Output Total 1725 1355 100 Balance 535 115 5 Weight 73.1 kg 72.8 kg Intake: IV 1240 700 50 PPN 540 Piperacillin-Tazobactam 3 100 100 .375 gm In Sodium Chloride 0.9% 100 ml @ 25 mls/hr IVPB Q12HR [facility] Rx #:[id number] Sodium Chloride 0.9% 1, 600 600 50 000 ml @ 50 mls/hr IV . Q20H [facility] Rx#:[id number] Intake, IV Titration 325 Amount Anidulafungin 200 mg In 200 Sodium Chloride 0.9% 200 ml @ 84 mls/hr IVPB ONCE ONE Rx#:[id number] Diltiazem 125 mg In 125 Sodium Chloride 0.9% 100 ml @ Per Protocol IV .Q0M [facility] Rx#:[id number] Tube Feeding 605 770 55 Other 90 Output: Drainage 25 Left Buttock 25 Urine 1450 1355 100 Stool 250 Other: Voiding Method Indwelling Catheter Indwelling Catheter - Labs CBC & Chem 7: 03/02/19 04:58 03/02/19 04:58 Labs: Abnormal Lab Results - Last 24 Hours (Table) 03/01/19 03/01/19 03/01/19 Range/Units 16:48 18:20 20:43 WBC (3.8-10.6) k/uL RBC (3.80-5.40) m/uL Hgb (11.4-16.0) gm/dL Hct (34.0-46.0) % Plt Count (150-450) k/uL Chloride (98-107) mmol/L BUN (7-17) mg/dL Creatinine (0.52-1.04) mg/dL Glucose (74-99) mg/dL POC Glucose (mg/dL) 158 H 108 H (75-99) mg/dL Urine Protein Trace H (Negative) Urine Blood Small H (Negative) Ur Leukocyte Esterase Moderate H (Negative) Urine RBC 13 H (0-5) /hpf Urine WBC 33 H (0-5) /hpf Urine Bacteria Rare H (None) /hpf Urine Mucus Rare H (None) /hpf 03/02/19 03/02/19 03/02/19 Range/Units 04:58 04:58 07:07 WBC 12.0 H (3.8-10.6) k/uL RBC 2.88 L (3.80-5.40) m/uL Hgb 8.4 L (11.4-16.0) gm/dL Hct 26.7 L (34.0-46.0) % Plt Count 516 H (150-450) k/uL Chloride 111 H (98-107) mmol/L BUN 44 H (7-17) mg/dL Creatinine 1.70 H (0.52-1.04) mg/dL Glucose 120 H (74-99) mg/dL POC Glucose (mg/dL) 139 H (75-99) mg/dL Urine Protein (Negative) Urine Blood (Negative) Ur Leukocyte Esterase (Negative) Urine RBC (0-5) /hpf Urine WBC (0-5) /hpf Urine Bacteria (None) /hpf Urine Mucus (None) /hpf 03/02/19 03/02/19 Range/Units 11:27 11:58 WBC (3.8-10.6) k/uL RBC (3.80-5.40) m/uL Hgb (11.4-16.0) gm/dL Hct (34.0-46.0) % Plt Count (150-450) k/uL Chloride (98-107) mmol/L BUN (7-17) mg/dL Creatinine (0.52-1.04) mg/dL Glucose (74-99) mg/dL POC Glucose (mg/dL) 131 H 132 H (75-99) mg/dL Urine Protein (Negative) Urine Blood (Negative) Ur Leukocyte Esterase (Negative) Urine RBC (0-5) /hpf Urine WBC (0-5) /hpf Urine Bacteria (None) /hpf Urine Mucus (None) /hpf Microbiology - Last 24 Hours (Table) 03/01/19 18:20 Urine Culture - Preliminary Urine,Catheterized Assessment and Plan (1) Abdominal pain Current Visit: Yes Status: Acute Code(s): R10.9 - UNSPECIFIED ABDOMINAL PAIN SNOMED Code(s): 98971213
[2019-03-02 11:29] LABS: Glucose,Whole Blood 131 mg/dL (75-99)
[2019-03-02 12:00] LABS: Glucose,Whole Blood 132 mg/dL (75-99)
--- NOTE | 2019-03-02 12:40 | P.PN ---
Subjective Progress Note Date: 03/02/19 Principal diagnosis: Acute bowel obstruction status post laparotomy with extensive lysis of adhesions and sigmoid colectomy and end colostomy postoperative day 5 This is a pleasant 83-year-old female patient admitted back on 02/07/2019 with complaints of constipation and abdominal discomfort. She had not moved her bowels for several days prior. Abdominal x-rays did show evidence of constipation. Fleet enema and MiraLAX at home were unsuccessful. She was subsequently admitted for abdominal bloating and discomfort. She was found to have a colon obstruction and yesterday had undergone exposure laparotomy, extensive lysis of adhesions, sigmoid colectomy, end colostomy done by Dr. Miller. She remained hypoxic postoperatively and was placed on BiPAP with an FiO2 of 80%. We're consulted for the same. No chest x-ray was done. She is seen today on the selective care unit. She is currently awake and alert in no acute distress. She is having some ongoing abdominal discomfort. She has a midline incision with maggy intact and a colostomy with stool present. She is currently on 6 L high flow nasal cannula and maintaining O2 saturation in the mid 90s. She denies any worsening shortness of breath, cough or congestion. Urine culture was positive for Klebsiella pneumoniae and E coli. Blood cultures had revealed no growth. White count 12.8. Hemoglobin 11.6. Sodium 148. Potassium 3.9. Creatinine 2.20. She has D5.45 running at 100 ML's per hour. She is currently on ceftriaxone and Flagyl. PPN and lipids have been ordered. The patient was having issues with atrial fibrillation preoperatively and was initially on a heparin drip. The plan from cardiology is to initiate Eliquis once cleared surgically. On today's evaluation of 02/14/2019 I was asked even with this patient and the patient was found to be more lethargic and short of breath. I the patient did she is relatively comfortable on oxygen at 4 L. Nevertheless, she states that she wants to and she is unable to take this ongoing treatment any further. In terms of her cardiac condition, she is in atrial fibrillation with rapid ventricular response and a current heart rate is around 120-140. She has a Murphy catheter urine output is in order of 30 mL an hour. She had a chest x-ray that showed increased opacification of the lung bases. Ultrasound of the chest was done that showed small pockets and based on the ultrasound these markers were not and minimal 4 thoracentesis. She is on Diprivan running at the rate of 75 mL an hour. She is also on IV fluids running at 75 mL an hour of normal saline. The patient has a positive fluid balance of 1.1 L. She has a creatinin e of 2.4 with a mean of 34. ABCDs not done this morning. She has a positive output and her colostomy bag. The surgical wound site is dry clean and intact. She is afebrile for now. on 02/16/2016, the patient is transferred to the intensive care unit. The patient's oxygen requirements went up yesterday and she is currently on15 L of oxygen by nasal cannula. I opted to bring her down to the ICU. The ultrasound of the chest was not conclusive in terms of fluid and based on that I ordered a CAT scan of the chest that was done without contrast and the CAT scan showed worsening atelectatic changes in lung bases, pneumonia cannot be completely excluded. The pleural effusions were very tiny and there were not and the blood for thoracentesis. Based on that, no intervention was done. Currently she is awake and alert. She is on a combination of IV Rocephin and Flagyl.er white cell count came up to 18. Her creatinine is up to 2.1. Creatinine is stable for now. The lactic acid level was low at 1. She is awake. She is alert. The colostomy is functioning and she has adequate output at this point in time.The patient still on TPN and were going to initiate someclear liquid diet today. Reevaluated today on 02/16/2019, patient remains in the ICU, O2 saturation is marginal, still requiring a high flow nasal cannula at 15 L/m, chest x-ray shows significant airspace disease and atelectasis with consolidation at the bases bilaterally right more so than left, hence I recommended that we use intermittently BiPAP with IPAP of 12 and EPAP of 4. Continues to have leukocytosis with WBC count of 14.5, hemoglobin is 10.1 lites are normal BUN is 41 creatinine 2.01. Close to her baseline since admission. Chest x-ray is quite concerning to me, and CT of the chest was also reviewed, patient has significant bibasilar consolidation and air bronchograms noted in both lungs bilaterally more so in the right lower lobe. On 02/17/2019 patient seen in follow-up in the intensive care unit, she is off BiPAP support currently, she is on 15 L, and her pulse ox is 92-94%, either tachycardic on a monitor, hemodynamically patient is stable, she states she feels short of breath, she has a congested cough, at times she is able to produce small amount of yellowish sputum, lung sounds are positive for rhonchi, and some wheezing, urine culture was positive for Klebsiella pneumonia and E. c rema, blood culture has shown no growth, patient's antibiotics have been simplified and currently patient is on Zosyn. White count is trending down, it is 13.8 on today's labs, hemoglobin is 10.2, sodium was 135, dorsiflexors were unremarkable, B1 is 41 creatinine is 1.94, profile is slightly improved, incentive spirometry effort is poor, and patient is only able to achieve 500 on the incentive spirometer today. Patient continues to be nothing by mouth, she continues on TPN, she was started on promotility agent, in the form of Reglan. Was no output from her ostomy overnight. Surgery is following. On 02/23/2019 patient was seen in follow-up in the intensive care unit. This is postoperative day #11, status post exploratory laparotomy, and extensive lysis of adhesions, sigmoid colectomy and colostomy for acute bowel obstruction. She is awake and alert, does not appear to be in any acute distress, still requiring high flow oxygen, to 15 L currently, her pulse ox is 97%, we will try to wean it down, she's been afebrile, she is however in A. fib RVR with a rate of 120-140, currently on oral metoprolol for rate control, she is on Lopressor 50 mg 3 times daily, is on IV antibiotics, no form of Zosyn, urine culture showed Klebsiella pneumonia and E. coli, susceptible to Zosyn. Hemodynamically she is stable, there have been no fevers, his labs have been reviewed, showing white blood cell count of 16.2, hemoglobin of 8.7, platelet count of 721, sodium is 133, potassium is 5.0, CO2 is 21, BUN is 56, creatinine is 2.17. Today's chest x-ray has been reviewed during patchy bibasilar opacities , low lung volumes, persistent trace pleural effusions, and atelectasis. Mid abdominal incision clean dry and intact, maggy are intact, left abdomen colostomy is with liquid stool, bowel sounds are present. Patient remains on TPN for supplementation of nutrition, and patient is also on the chopped dysphagia 3 diet with 1500 mL fluid restriction. On 02/24/2019 patient seen in follow-up in the intensive care unit, she is resting comfortably in bed, this is postop day 12 status post exploratory laparotomy, and extensive lysis of adhesions, sigmoid colectomy and colostomy for acute bowel obstruction. Yesterday patient had a CT of abdomen and pelvis which revealed a large discrete fluid collection in the pelvis between the rectum and the urinary bladder that could be related to an abscess. Interventional radiology has been consulted for possible drainage of this abscess, however patient has been on Eliquis, and IR will not be able to proceed with the procedure for about 48 hours. Patient denies abdominal discomfort, NG tube has been inserted, and her about 300-400 mL of brownish colored output. Denies any worsening dyspnea, she needs a lot of encouragement to work with the incentive spirometer, and she is only achieving 250-500 mL on it today. Remains in A. fib but today's rate is better controlled, oral diltiazem has been added in addition to metoprolol. Hemodynamically stable. Patient is Zosyn for empiric antibiotic coverage, she's been afebrile, today's labs have been reviewed, showing white blood cell count of 14.0, hemoglobin of 7.7, serum sodium is 132, the rest of the electrolytes were within normal limits, BUN is 63 and creatinine is 2.4, chest x-ray today shows congestive heart failure with pleural effusions. On 02/26/2019 patient is seen in follow-up in the intensive care unit, she is awake and alert, but only oriented to person, confused, but appears to be in no acute distress, FiO2 is down to 6 L per high flow nasal cannula a pulse ox of 90, denies any respiratory distress, lung sounds are clear, diminished at the bases, remains nothing by mouth, abdomen is tender to palpation, but no acute distress, NGT has been discontinued. Patient has positive bowel sounds. Heparin infusion is on hold, the possibility of a cutaneous drainage of intra- abdominal abscess. Based chest x-ray has been reviewed and showing a right PICC line in the right jugular vein, we will reconsult interventional radiology for repositioning of the PICC line, and trace pleural effusions and bibasilar opacities that may represent atelectasis or pneumonia. Antibiotic coverage in the form of Zosyn, patient has been afebrile. Colostomy is functioning, making liquid brown stool. On 02/27/2019 patient is seen in follow-up in the intensive care unit, she is pleasantly confused, she has a aviation safety technician at the bedside to prevent her from removing her indwelling catheters. FiO2 down to 4 L and her pulse ox is 92-93%, hemodynamically patient is stable, low-grade fever this morning, no evidence of any distress, denies any abdominal pain, her colostomy is functioning, putting out liquid brown stool, yesterday patient had a percutaneous drain put in for drainage of intra-abdominal abscess, there has been 150 mL of serosanguineous drainage from the tube in the last 24 hours. Hemodynamically she remains stable, point normal saline infusing at a rate of 50 ML per hour, TPN is at 60, yesterday we inserted a Dobbhoff feeding tube for supplementation of her nutrition, patient's appetite remains very poor, patient is practically refusing all meals. Patient will be reinitiated on her oral intake regulation by cardiology. Patient had a low-grade fever with a T-max 100.3F yesterday. Zosyn for antibiotic coverage continues, abscess drainage was sent for culture and is pending at this time. ID service is following. Today's chest x-ray has been reviewed showing prominent lower lung atelectasis and/or consolidation. And continued elevation of right hemidiaphragm. On 03/02/2019 patient seen in follow-up in intensive care unit, she is in no acute distress, pleasant confused, today is postoperative day 18, status post exposure laparotomy, and extensive lysis of adhesions, sigmoid colectomy and colostomy for acute bowel obstruction, patient subsequently also had a percutaneous drain inserted for intra-abdominal abscess, no further cultures are negative, urine culture showed Klebsiella pneumonia and E. coli for which the pa oscar remains on Zosyn, did have a low-grade fevers last night, he service is following, no complaints of abdominal pain, abdomen slightly distended and tympanic, per surgery abdominal flat plate x-ray is being obtained, colostomy is producing liquid brown stool, patient is tolerating tube feedings, appetite remains poor, and patient is on full liquid diet, no signs of respiratory distress, lung sounds are clear diminished at bases, patient does have an effective cough. Objective - Vital Signs Vital signs: Vital Signs Temp 98.2 F 03/02/19 04:00 Pulse 108 H 03/02/19 11:05 Resp 19 03/02/19 07:00 BP 166/96 03/02/19 07:00 Pulse Ox 96 03/02/19 07:00 Intake & Output 03/01/19 03/02/19 03/02/19 18:59 06:59 18:59 Intake Total 2260 1470 105 Output Total 1725 1355 100 Balance 535 115 5 Weight 73.1 kg 72.8 kg Intake: IV 1240 700 50 PPN 540 Piperacillin-Tazobactam 3 100 100 .375 gm In Sodium Chloride 0.9% 100 ml @ 25 mls/hr IVPB Q12HR PENDING SALE TO [facility] Rx #:[id number] Sodium Chloride 0.9% 1, 600 600 50 000 ml @ 50 mls/hr IV . Q20H PENDING SALE TO [facility] Rx#:[id number] Intake, IV Titration 325 Amount Anidulafungin 200 mg In 200 Sodium Chloride 0.9% 200 ml @ 84 mls/hr IVPB ONCE ONE Rx#:[id number] Diltiazem 125 mg In 125 Sodium Chloride 0.9% 100 ml @ Per Protocol IV .Q0M PENDING SALE TO [facility] Rx#:[id number] Tube Feeding 605 770 55 Other 90 Output: Drainage 25 Left Buttock 25 Urine 1450 1355 100 Stool 250 Other: Voiding Method Indwelling Catheter Indwelling Catheter - Exam GENERAL EXAM: Alert, pleasant, 83-year-old white female, dyspneic with conversation, she is on 2 L per high flow nasal cannula, and her pulse ox is 93%, comfortable in no apparent distress. HEAD: Normocephalic/atraumatic. EYES: Normal reaction of pupils, equal size. Conjunctiva pink, sclera white. NOSE: Clear with pink turbinates. THROAT: No erythema or exudates. NECK: No masses, no JVD, no thyroid enlargement, no adenopathy. CHEST: No chest wall deformity. Symmetrical expansion. LUNGS: Equal air entry with mild rhonchi, diminished breath sounds CVS: Irregular rate and rhythm, normal S1 and S2, no gallops, no murmurs, no rubs ABDOMEN: Soft, nontender. No hepatosplenomegaly, normal bowel sounds, no guarding or rigidity. Midline incision with maggy intact, colostomy with liquid yellow output. Percutaneous drain on the left side with drainage of serosanguineous output EXTREMITIES: No clubbing, no edema, no cyanosis, 2+ pulses and upper and lower extremities. MUSCULOSKELETAL: Muscle strength and tone normal. SPINE: No scoliosis or deformity SKIN: No rashes CENTRAL NERVOUS SYSTEM: Alert and oriented -1, presently confused. No focal deficits, tone is normal in all 4 extremities. PSYCHIATRIC: Alert and oriented -1. Appropriate affect. Intact judgment and insight. - Labs CBC & Chem 7: 03/02/19 04:58 03/02/19 04:58 Labs: Abnormal Lab Results - Last 24 Hours (Table) 03/01/19 03/01/19 03/01/19 Range/Units 16:48 18:20 20:43 WBC (3.8-10.6) k/uL RBC (3.80-5.40) m/uL Hgb (11.4-16.0) gm/dL Hct (34.0-46.0) % Plt Count (150-450) k/uL Chloride (98-107) mmol/L BUN (7-17) mg/dL Creatinine (0.52-1.04) mg/dL Glucose (74-99) mg/dL POC Glucose (mg/dL) 158 H 108 H (75-99) mg/dL Urine Protein Trace H (Negative) Urine Blood Small H (Negative) Ur Leukocyte Esterase Moderate H (Negative) Urine RBC 13 H (0-5) /hpf Urine WBC 33 H (0-5) /hpf Urine Bacteria Rare H (None) /hpf Urine Mucus Rare H (None) /hpf 03/02/19 03/02/19 03/02/19 Range/Units 04:58 04:58 07:07 WBC 12.0 H (3.8-10.6) k/uL RBC 2.88 L (3.80-5.40) m/uL Hgb 8.4 L (11.4-16.0) gm/dL Hct 26.7 L (34.0-46.0) % Plt Count 516 H (150-450) k/uL Chloride 111 H (98-107) mmol/L BUN 44 H (7-17) mg/dL Creatinine 1.70 H (0.52-1.04) mg/dL Glucose 120 H (74-99) mg/dL POC Glucose (mg/dL) 139 H (75-99) mg/dL Urine Protein (Negative) Urine Blood (Negative) Ur Leukocyte Esterase (Negative) Urine RBC (0-5) /hpf Urine WBC (0-5) /hpf Urine Bacteria (None) /hpf Urine Mucus (None) /hpf 03/02/19 03/02/19 Range/Units 11:27 11:58 WBC (3.8-10.6) k/uL RBC (3.80-5.40) m/uL Hgb (11.4-16.0) gm/dL Hct (34.0-46.0) % Plt Count (150-450) k/uL Chloride (98-107) mmol/L BUN (7-17) mg/dL Creatinine (0.52-1.04) mg/dL Glucose (74-99) mg/dL POC Glucose (mg/dL) 131 H 132 H (75-99) mg/dL Urine Protein (Negative) Urine Blood (Negative) Ur Leukocyte Esterase (Negative) Urine RBC (0-5) /hpf Urine WBC (0-5) /hpf Urine Bacteria (None) /hpf Urine Mucus (None) /hpf Microbiology - Last 24 Hours (Table) 03/01/19 18:20 Urine Culture - Preliminary Urine,Catheterized Assessment and Plan Plan: Assessment: #1. Acute bowel obstruction, status post exploratory laparotomy, extensive lysis of adhesions, sigmoid colectomy, and colostomy, postoperative day 18 #2. Large fluid collection in the pelvis could be related to an abscess, interventional radiology has been consulted for drainage, patient has a percutaneous drain for drainage of abscess, cultures are pending, negative thus far #3. Acute urinary tract infection with cultures positive for Klebsiella pneumonia and E. coli #4. Bilateral hydronephrosis seen on the CT of the abdomen and pelvis #5. Acute hypoxic respiratory failure suspect aspiration pneumonia, and postoperative atelectasis #6. Acute urinary tract infection secondary to Klebsiella pneumonia and E. coli, susceptible to Zosyn which the patient is currently on #7. A. fib with RVR, on oral metoprolol for rate control, and Eliquis #8. Chronic atrial fibrillation #9. Benign essential hypertension #10. History of hyperlipidemia #11. Acute on chronic renal failure patient has chronic kidney disease stage III at baseline #12. Confusion, related to [place] Encephalopathy Plan: Continue antibiotic coverage per ID service recommendations, is on Zosyn and Eraxis, intra-abdominal abscess cultures are still pending at this time. Low- grade fevers last night, hemodynamically patient remains stable, remains in A. fib with a better controlled rate, maintaining stable oxygenation on 2 L, maintain aspiration precautions, encourage deep breathing and coughing, maintain tube feedings for supplementation of nutrition. Patient is having flat plate of the abdomen done for abdominal distention, but patient denies any abdominal pain. Today's labs have been reviewed, no new chest x-rays. I performed a history & physical examination of the patient and discussed their management with my nurse practitioner, Suzanne Kaur. I reviewed the nurse practitioner's note and agree with the documented findings and plan of care. Lung sounds are positive for diminished breath sounds with minimal rhonchi. The findings and the impression was discussed with the patient. I attest to the documentation by the nurse practitioner. Time with Patient: Less than 30
--- NOTE | 2019-03-02 12:51 | XR ---
EXAMINATION TYPE: XR abdomen 1V DATE OF EXAM: 03/02/2019 12:41 PM CLINICAL HISTORY: Catheter placement. TECHNIQUE: Single supine KUB image of the abdomen is obtained. COMPARISON: CT abdomen pelvis dated 02/23/2019. FINDINGS: Stomach is air-filled with new catheter overlying the stomach bubble. Presumably a new rect al catheter has a cephalad position. This could be retracted 12 to 14 cm. Postsurgical changes seen w ith colostomy and left low pelvis pigtail catheter. Levoscoliosis of the spine and moderate degenerat maribel changes are seen. Extensive arthropathy of the right hip with [id number] articulation is noted. Evaluation of pneumoperitoneum is markedly limited on this supine exam IMPRESSION: 1. Postsurgical change, pigtail catheter clot along the left low hemipelvis, colostomy, and what is p resumed to represent a new rectal tube appearing cephalad in placement. Enteric tube has been placed appropriately overlying the air-filled stomach.
[2019-03-02] MEDS: MORPHINE SULFATE 4 MG/ML SYRINGE IVP PRN ×2 (14:12→23:29)
[2019-03-02] MEDS: METOPROLOL TARTRATE 5 MG/5 ML VIAL IVP PRN (14:36)
[2019-03-02 16:53] LABS: Glucose,Whole Blood 135 mg/dL (75-99)
[2019-03-02 17:28] LABS: Glucose,Whole Blood 140 mg/dL (75-99)
--- NOTE | 2019-03-02 18:00 | P.PN ---
Subjective Progress Note Date: 03/02/19 Principal diagnosis: mechanical obstruction with small bowel and distended abdomen with history of adhesions in the past. The progress note dictated on 02/08/2090 by Patient with history notable bowel movement or stool or passing flatus for more than one week duration x-ray indicating small bowel mechanical obstruction. And patient currently nothing by mouth with NG tube which she did some relief. 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 And seen by Dr. ISATU Zamudio. Respiratory rate 16 and her blood pressure is hypertensive in spite of trial of medication 187/84. She is on nasal cannula 2 L of oxygen with a pulse ox 95%. current laboratories indicating that her WBC 5.3 with a hemoglobin 11.6, her platelet count 414.next is her PTT 32.6with the normal range 30.6. Minimally elevated. Chemistry indicating sodium 144 potassium 3.8 chloride 108 carbon dioxid 28, anion gap 8, BUN 20, creatinine 1.94, EGFR 23 with chronic kidney disease stage IV. Glucose 131AST and LT normal alk phos 137 total protein 6.1 and albumin 3.4 thyroid function is normal and the free T3 some little bit lower than normal that is because of her illness Nephrology evaluation and assessment indicating patient with the UTI Klebsiella pneumonia and E. coli treated according to the culture with the assessment acute kidney injury possibly prerenal improved with hydration. Chronic kidney disease stage IV with the creatinine near 2 secondary to hydronephrosis and left renal atrophy. #3 abdominal pain with questionable diverticulitis and chronic obstruction and NG tube for decompression. Neurogenic bladder and uses a catheterization 4-5 a day metabolic acidosis and she is on bicarb hypertension is controlled and UTI. Physical exam patient status post barium enema and patient the result reviewed by Dr. Sahu and his impression will be discussed with the family. HEENT was negative neck was supple and chest was clear and the heart was currently controlled atrophic And abdomen is tender distended and with the small bowel obstruction extremities no edema. Assessment small bowel obstruction mechanical and high fall to the patient should have surgical intervention. However this is a surgical case and up to the family and the surgeon. Progress note dictation date of service 03/02/[address] Maren M.D. [facility]. Patient seen and evaluated today in ICU. Blood pressure today 147/99043/96, pulse ox 96% on nasal cannula 4 L. Her heart rate is fluctuating with paroxysmal atrial fibrillation to normal sinus rhythm with the rate 10 11 12/m. Laboratory indicating that her glucose POC 135 controlled well with the insulin to scale and gradually weaning off TPN, patient on Dobbhoff tube feeding. Lab: Sodium 142 potassium 3.7, chloride 111, carbon dioxide 23 anion gap of 8 and BUN of 44 creatinine 1.7 with the EGFR 28, blood sugar 120 in a.m., calcium 9.3 phosphorus 3 and magnesium 1.9. Repeat urine analysis on 03/01/19 indicating that small blood moderate leukocyte RBC 13 WBC 33. Trace protein, however today she had gross hematuria they contacted the urology and the advice to pull the catheter out which apparently did improve her urine output flow. Patient's conscious alert intermittently confused pleasantly no agitation. HEENT negative oropharynx she had the lower natural teeth and upper full plate Neck was supple no JVD no lymph node Chest markedly improved her radiation bilateral with the underlying elevated right hemidiaphragm. Heart between sinus and atrial fibrillation currently controlled ventricular response fairly well no evidence of congestive heart failure Abdomen gradual improvement with the colostomy has a stool and also yesterday she had gas in the pouch and positive bowel sounds. Extremities no edema and antithrombotic stocking and she had a Murphy catheter in place as well as Dobbhoff tube feeding in place and there is hematuria. Neurologically confusion with delirium with her presence in the ICU. Assessment: #1 patient on antifungal IV started by Dr. Bernardo infectious disease and will be leaving also the Zosyn to Dr. Tsai to decide if he again stop it or not initially was ordered by pulmonary Dr. Campbell. #2 continue weaning for TPN continue feeding was Dobbhoff tube. Continue monitoring the blood pressure and the blood sugar and the results of the urine analysis. Plan continue the current treatment no change. Objective - Vital Signs Vital signs: Vital Signs Temp 98.2 F 03/02/19 04:00 Pulse 98 03/02/19 16:22 Resp 19 03/02/19 07:00 BP 166/96 03/02/19 07:00 Pulse Ox 96 03/02/19 07:00 Intake & Output 03/01/19 03/02/19 03/02/19 18:59 06:59 18:59 Intake Total 2260 1470 105 Output Total 1725 1355 100 Balance 535 115 5 Weight 73.1 kg 72.8 kg Intake: IV 1240 700 50 PPN 540 Piperacillin-Tazobactam 3 100 100 .375 gm In Sodium Chloride 0.9% 100 ml @ 25 mls/hr IVPB Q12HR [facility] Rx #:[id number] Sodium Chloride 0.9% 1, 600 600 50 000 ml @ 50 mls/hr IV . Q20H [facility] Rx#:[id number] Intake, IV Titration 325 Amount Anidulafungin 200 mg In 200 Sodium Chloride 0.9% 200 ml @ 84 mls/hr IVPB ONCE ONE Rx#:[id number] Diltiazem 125 mg In 125 Sodium Chloride 0.9% 100 ml @ Per Protocol IV .Q0M [facility] Rx#:[id number] Tube Feeding 605 770 55 Other 90 Output: Drainage 25 Left Buttock 25 Urine 1450 1355 100 Stool 250 Other: Voiding Method Indwelling Catheter Indwelling Catheter - Labs CBC & Chem 7: 03/02/19 04:58 03/02/19 04:58 Labs: Abnormal Lab Results - Last 24 Hours (Table) 03/01/19 03/01/19 03/02/19 Range/Units 18:20 20:43 04:58 WBC (3.8-10.6) k/uL RBC (3.80-5.40) m/uL Hgb (11.4-16.0) gm/dL Hct (34.0-46.0) % Plt Count (150-450) k/uL Chloride 111 H (98-107) mmol/L BUN 44 H (7-17) mg/dL Creatinine 1.70 H (0.52-1.04) mg/dL Glucose 120 H (74-99) mg/dL POC Glucose (mg/dL) 108 H (75-99) mg/dL Urine Protein Trace H (Negative) Urine Blood Small H (Negative) Ur Leukocyte Esterase Moderate H (Negative) Urine RBC 13 H (0-5) /hpf Urine WBC 33 H (0-5) /hpf Urine Bacteria Rare H (None) /hpf Urine Mucus Rare H (None) /hpf 03/02/19 03/02/19 03/02/19 Range/Units 04:58 07:07 11:27 WBC 12.0 H (3.8-10.6) k/uL RBC 2.88 L (3.80-5.40) m/uL Hgb 8.4 L (11.4-16.0) gm/dL Hct 26.7 L (34.0-46.0) % Plt Count 516 H (150-450) k/uL Chloride (98-107) mmol/L BUN (7-17) mg/dL Creatinine (0.52-1.04) mg/dL Glucose (74-99) mg/dL POC Glucose (mg/dL) 139 H 131 H (75-99) mg/dL Urine Protein (Negative) Urine Blood (Negative) Ur Leukocyte Esterase (Negative) Urine RBC (0-5) /hpf Urine WBC (0-5) /hpf Urine Bacteria (None) /hpf Urine Mucus (None) /hpf 03/02/19 03/02/19 03/02/19 Range/Units 11:58 16:52 17:27 WBC (3.8-10.6) k/uL RBC (3.80-5.40) m/uL Hgb (11.4-16.0) gm/dL Hct (34.0-46.0) % Plt Count (150-450) k/uL Chloride (98-107) mmol/L BUN (7-17) mg/dL Creatinine (0.52-1.04) mg/dL Glucose (74-99) mg/dL POC Glucose (mg/dL) 132 H 135 H 140 H (75-99) mg/dL Urine Protein (Negative) Urine Blood (Negative) Ur Leukocyte Esterase (Negative) Urine RBC (0-5) /hpf Urine WBC (0-5) /hpf Urine Bacteria (None) /hpf Urine Mucus (None) /hpf Microbiology - Last 24 Hours (Table) 03/01/19 18:20 Urine Culture - Preliminary Urine,Catheterized
--- NOTE | 2019-03-02 19:54 | PN ---
PROGRESS NOTE DATE OF SERVICE: 03/02/2019. REASON FOR FOLLOW UP: 1. Diverticulitis with abdominal abscess. 2. UTI. INTERVAL HISTORY: The patient is currently afebrile. The patient is more awake and alert. She is breathing comfortably. Denies any chest pain or any cough. No nausea, no vomiting. Denies abdominal pain. PHYSICAL EXAMINATION: Blood pressure 156/96, pulse of 109, temperature of 98.2. She is 96% on 4 L nasal cannula. General description is an elderly female lying in bed in no distress. Respiratory system: Unlabored breathing. Clear to auscultation anteriorly. Heart S1, S2. Regular rate and rhythm. Abdomen soft. No tenderness. LABS: Hemoglobin 8.4, white count 16995, repeat urine is positive, creatinine 1.70. DIAGNOSTIC IMPRESSION AND PLAN: 1. Patient with acute complicated sigmoid diverticulitis, status post diverting colostomy with abdominal fluid collection that has been CT-guided drained. Those cultures have been negative. Patient is covered with Zosyn. 2. Patient with urinary tract infection, urine now showing a yeast. Murphy catheter has been changed. Repeat did not have significant positive. However, the patient did have a fever, currently covered with Eraxis to continue while waiting for repeat urine cultures to finalize. Monitor clinical course closely. MMODL / IJN: [id number] /
[2019-03-02] MEDS: APIXABAN 2.5 MG TABLET PO SCH (20:38)
[2019-03-02] MEDS: ATORVASTATIN 10 MG TAB PO SCH (20:38)
[2019-03-02] MEDS: DULoxetine HCL 60 MG CAPSULE.DR PO SCH (20:39)
[2019-03-02 21:07] LABS: Glucose,Whole Blood 137 mg/dL (75-99)
[2019-03-03 05:42] LABS: HCT 25.3 % (34.0-46.0); HGB 8.1 gm/dL (11.4-16.0); Hypochromasia Moderate; MCH 28.9 pg (25.0-35.0); MCHC 31.9 g/dL (31.0-37.0); MCV 90.6 fL (80.0-100.0); Platelet Count 479 k/uL (150-450); Poikilocytosis Slight; RDW 15.3 % (11.5-15.5); WBC 11.3 k/uL (3.8-10.6)
[2019-03-03 05:52] LABS: Albumin 2.8 g/dL (3.5-5.0); Calcium 9.4 mg/dL (8.4-10.2); Total Bilirubin 0.5 mg/dL (0.2-1.3); Total Protein 6.1 g/dL (6.3-8.2)
[2019-03-03] MEDS: DRONABINOL 2.5 MG CAP PO SCH ×2 (06:41→17:08)
[2019-03-03] MEDS: METOPROLOL TARTRATE 50 MG TAB PO SCH ×3 (06:42→21:08)
[2019-03-03 07:07] LABS: Glucose,Whole Blood 128 mg/dL (75-99)
[2019-03-03] MEDS: INSULIN ASPART (NovoLOG) 100 UNIT/ML VIAL SQ SCH ×3 (07:12→17:09)
[2019-03-03] MEDS: MORPHINE SULFATE 4 MG/ML SYRINGE IVP PRN ×2 (08:32→18:19)
[2019-03-03] MEDS: METOCLOPRAMIDE 5 MG/ML 2 ML VIAL IVP PRN ×2 (08:33→18:23)
[2019-03-03] MEDS: APIXABAN 2.5 MG TABLET PO SCH ×2 (08:33→21:10)
[2019-03-03] MEDS: ANIDULAFUNGIN 100 MG in SODIUM CHLORIDE 0.9% 100 ML IVPB SCH (08:33)
[2019-03-03] MEDS: HYDROcodone/APAP 5-325MG 1 EACH TAB PO PRN (08:33)
[2019-03-03] MEDS: AMIODARONE 200 MG TAB PO SCH ×2 (08:33→21:10)
[2019-03-03] MEDS: NYSTATIN 100,000 UNIT/ML SUSP 500,000 UNIT/5 ML CUP PO SCH ×4 (08:34→21:20)
[2019-03-03] MEDS: BUDESONIDE 0.5 MG/2 ML NEBU INHALATION SCH ×2 (08:46→20:19)
[2019-03-03] MEDS: IPRATROPIUM-ALBUTEROL 3 ML NEB INHALATION SCH ×4 (08:46→20:19)
--- NOTE | 2019-03-03 08:56 | P.PN ---
Subjective Patient is seen in follow-up for acute kidney injury on chronic kidney disease. Renal function is stable. She is nonoliguric. Underwent exploratory laparotomy with sigmoid colectomy and end colostomy this admission. She pulled out dobhoff yesterday. Oral intake gradually improving. Denies chest pain or shortness of breath. Vital signs are stable. General: The patient appeared well nourished and normally developed. HEENT: Head exam is unremarkable. Neck is without jugular venous distension. LUNGS: Lungs are clear to auscultation and percussion. Breath sounds decreased. HEART: Rate and Rhythm are regular. First and second heart sounds normal. No murmurs, rubs or gallops. ABDOMEN: Bowel sounds present. Soft. EXTREMITITES: No clubbing, cyanosis, or edema. Objective - Vital Signs Vital signs: Vital Signs Temp 99.0 F 03/03/19 04:00 Pulse 104 H 03/03/19 07:00 Resp 25 H 03/03/19 07:00 BP 165/97 03/03/19 07:00 Pulse Ox 90 L 03/03/19 07:00 Intake & Output 03/02/19 03/03/19 03/03/19 18:59 06:59 18:59 Intake Total 1270 920 50 Output Total 1625 1180 125 Balance -355 -260 -75 Weight 73.7 kg Intake: IV 700 500 50 Piperacillin-Tazobactam 3 100 .375 gm In Sodium Chloride 0.9% 100 ml @ 25 mls/hr IVPB Q12HR [facility] Rx #:[id number] Sodium Chloride 0.9% 1, 600 500 50 000 ml @ 50 mls/hr IV . Q20H [facility] Rx#:[id number] Intake, IV Titration 100 Amount Anidulafungin 100 mg In 100 Sodium Chloride 0.9% 100 ml @ 84 mls/hr IVPB DAILY [facility] Rx#:[id number] Oral 240 200 Tube Feeding 230 220 Output: Urine 1625 1180 125 Other: Voiding Method Indwelling Catheter Indwelling Catheter - Labs CBC & Chem 7: 03/03/19 05:18 03/03/19 05:14 Labs: Abnormal Lab Results - Last 24 Hours (Table) 03/02/19 03/02/19 03/02/19 Range/Units 11:27 11:58 16:52 WBC (3.8-10.6) k/uL RBC (3.80-5.40) m/uL Hgb (11.4-16.0) gm/dL Hct (34.0-46.0) % Plt Count (150-450) k/uL Chloride (98-107) mmol/L BUN (7-17) mg/dL Creatinine (0.52-1.04) mg/dL Glucose (74-99) mg/dL POC Glucose (mg/dL) 131 H 132 H 135 H (75-99) mg/dL Alkaline Phosphatase (38-126) U/L Total Protein (6.3-8.2) g/dL Albumin (3.5-5.0) g/dL 03/02/19 03/02/19 03/03/19 Range/Units 17:27 21:06 05:14 WBC (3.8-10.6) k/uL RBC (3.80-5.40) m/uL Hgb (11.4-16.0) gm/dL Hct (34.0-46.0) % Plt Count (150-450) k/uL Chloride 109 H (98-107) mmol/L BUN 43 H (7-17) mg/dL Creatinine 1.79 H (0.52-1.04) mg/dL Glucose 113 H (74-99) mg/dL POC Glucose (mg/dL) 140 H 137 H (75-99) mg/dL Alkaline Phosphatase 171 H (38-126) U/L Total Protein 6.1 L (6.3-8.2) g/dL Albumin 2.8 L (3.5-5.0) g/dL 03/03/19 03/03/19 Range/Units 05:18 07:05 WBC 11.3 H (3.8-10.6) k/uL RBC 2.80 L (3.80-5.40) m/uL Hgb 8.1 L (11.4-16.0) gm/dL Hct 25.3 L (34.0-46.0) % Plt Count 479 H (150-450) k/uL Chloride (98-107) mmol/L BUN (7-17) mg/dL Creatinine (0.52-1.04) mg/dL Glucose (74-99) mg/dL POC Glucose (mg/dL) 128 H (75-99) mg/dL Alkaline Phosphatase (38-126) U/L Total Protein (6.3-8.2) g/dL Albumin (3.5-5.0) g/dL Microbiology - Last 24 Hours (Table) 03/01/19 18:20 Urine Culture - Final Urine,Catheterized 02/26/19 15:15 Gram Stain - Final Aspirate Body Fluid Culture - Final 02/26/19 15:15 Anaerobic Culture - Final Other - Other Assessment and Plan Plan: Assessment: 1. Acute kidney injury secondary to ATN. Improving with IV hydration. Renal function stable - creatinine 1.79 today. 2. Chronic kidney disease stage IV with baseline creatinine near 1.7-1.9 secondary to nephrosclerosis and left renal atrophy. 3. S/p exp lap with sigmoid colectomy and end colostomy 02/12/19. Maintained on TPN. Now has abdominal abscess and is scheduled for drainage today. 4. Neurogenic bladder. Patient performs self catheterizations 4-5 times daily. Now has Murphy. 5. Metabolic acidosis secondary to acute kidney injury. Stable. 6. Hypertension with chronic kidney disease. 7. UTI with urine culture positive for Klebsiella and E. coli maintained on ant ibiotics. 8. Hyponatremia secondary to poor solute intake. Resolved. 9. A-fib maintained on Lopressor and Cardizem. Plan: Maintain normal saline at 50 mL an hour. Encouraged oral intake. Avoid nephrotoxins. Continue to monitor renal function and urine output.
--- NOTE | 2019-03-03 09:32 | P.PN ---
Subjective Progress Note Date: 03/03/19 Principal diagnosis: Acute bowel obstruction status post laparotomy with extensive lysis of adhesions and sigmoid colectomy and end colostomy postoperative day 5 This is a pleasant 83-year-old female patient admitted back on 02/07/2019 with complaints of constipation and abdominal discomfort. She had not moved her bowels for several days prior. Abdominal x-rays did show evidence of constipation. Fleet enema and MiraLAX at home were unsuccessful. She was subsequently admitted for abdominal bloating and discomfort. She was found to have a colon obstruction and yesterday had undergone exposure laparotomy, extensive lysis of adhesions, sigmoid colectomy, end colostomy done by Dr. Miller. She remained hypoxic postoperatively and was placed on BiPAP with an FiO2 of 80%. We're consulted for the same. No chest x-ray was done. She is seen today on the selective care unit. She is currently awake and alert in no acute distress. She is having some ongoing abdominal discomfort. She has a midline incision with maggy intact and a colostomy with stool present. She is currently on 6 L high flow nasal cannula and maintaining O2 saturation in the mid 90s. She denies any worsening shortness of breath, cough or congestion. Urine culture was positive for Klebsiella pneumoniae and E coli. Blood cultures had revealed no growth. White count 12.8. Hemoglobin 11.6. Sodium 148. Potassium 3.9. Creatinine 2.20. She has D5.45 running at 100 ML's per hour. She is currently on ceftriaxone and Flagyl. PPN and lipids have been ordered. The patient was having issues with atrial fibrillation preoperatively and was initially on a heparin drip. The plan from cardiology is to initiate Eliquis once cleared surgically. On today's evaluation of 02/14/2019 I was asked even with this patient and the patient was found to be more lethargic and short of breath. I the patient did she is relatively comfortable on oxygen at 4 L. Nevertheless, she states that she wants to and she is unable to take this ongoing treatment any further. In terms of her cardiac condition, she is in atrial fibrillation with rapid ventricular response and a current heart rate is around 120-140. She has a Murphy catheter urine output is in order of 30 mL an hour. She had a chest x-ray that showed increased opacification of the lung bases. Ultrasound of the chest was done that showed small pockets and based on the ultrasound these markers were not and minimal 4 thoracentesis. She is on Diprivan running at the rate of 75 mL an hour. She is also on IV fluids running at 75 mL an hour of normal saline. The patient has a positive fluid balance of 1.1 L. She has a creatinin e of 2.4 with a mean of 34. ABCDs not done this morning. She has a positive output and her colostomy bag. The surgical wound site is dry clean and intact. She is afebrile for now. on 02/16/2016, the patient is transferred to the intensive care unit. The patient's oxygen requirements went up yesterday and she is currently on15 L of oxygen by nasal cannula. I opted to bring her down to the ICU. The ultrasound of the chest was not conclusive in terms of fluid and based on that I ordered a CAT scan of the chest that was done without contrast and the CAT scan showed worsening atelectatic changes in lung bases, pneumonia cannot be completely excluded. The pleural effusions were very tiny and there were not and the blood for thoracentesis. Based on that, no intervention was done. Currently she is awake and alert. She is on a combination of IV Rocephin and Flagyl.er white cell count came up to 18. Her creatinine is up to 2.1. Creatinine is stable for now. The lactic acid level was low at 1. She is awake. She is alert. The colostomy is functioning and she has adequate output at this point in time.The patient still on TPN and were going to initiate someclear liquid diet today. Reevaluated today on 02/16/2019, patient remains in the ICU, O2 saturation is marginal, still requiring a high flow nasal cannula at 15 L/m, chest x-ray shows significant airspace disease and atelectasis with consolidation at the bases bilaterally right more so than left, hence I recommended that we use intermittently BiPAP with IPAP of 12 and EPAP of 4. Continues to have leukocytosis with WBC count of 14.5, hemoglobin is 10.1 lites are normal BUN is 41 creatinine 2.01. Close to her baseline since admission. Chest x-ray is quite concerning to me, and CT of the chest was also reviewed, patient has significant bibasilar consolidation and air bronchograms noted in both lungs bilaterally more so in the right lower lobe. On 02/17/2019 patient seen in follow-up in the intensive care unit, she is off BiPAP support currently, she is on 15 L, and her pulse ox is 92-94%, either tachycardic on a monitor, hemodynamically patient is stable, she states she feels short of breath, she has a congested cough, at times she is able to produce small amount of yellowish sputum, lung sounds are positive for rhonchi, and some wheezing, urine culture was positive for Klebsiella pneumonia and E. c rema, blood culture has shown no growth, patient's antibiotics have been simplified and currently patient is on Zosyn. White count is trending down, it is 13.8 on today's labs, hemoglobin is 10.2, sodium was 135, dorsiflexors were unremarkable, B1 is 41 creatinine is 1.94, profile is slightly improved, incentive spirometry effort is poor, and patient is only able to achieve 500 on the incentive spirometer today. Patient continues to be nothing by mouth, she continues on TPN, she was started on promotility agent, in the form of Reglan. Was no output from her ostomy overnight. Surgery is following. On 02/23/2019 patient was seen in follow-up in the intensive care unit. This is postoperative day #11, status post exploratory laparotomy, and extensive lysis of adhesions, sigmoid colectomy and colostomy for acute bowel obstruction. She is awake and alert, does not appear to be in any acute distress, still requiring high flow oxygen, to 15 L currently, her pulse ox is 97%, we will try to wean it down, she's been afebrile, she is however in A. fib RVR with a rate of 120-140, currently on oral metoprolol for rate control, she is on Lopressor 50 mg 3 times daily, is on IV antibiotics, no form of Zosyn, urine culture showed Klebsiella pneumonia and E. coli, susceptible to Zosyn. Hemodynamically she is stable, there have been no fevers, his labs have been reviewed, showing white blood cell count of 16.2, hemoglobin of 8.7, platelet count of 721, sodium is 133, potassium is 5.0, CO2 is 21, BUN is 56, creatinine is 2.17. Today's chest x-ray has been reviewed during patchy bibasilar opacities , low lung volumes, persistent trace pleural effusions, and atelectasis. Mid abdominal incision clean dry and intact, maggy are intact, left abdomen colostomy is with liquid stool, bowel sounds are present. Patient remains on TPN for supplementation of nutrition, and patient is also on the chopped dysphagia 3 diet with 1500 mL fluid restriction. On 02/24/2019 patient seen in follow-up in the intensive care unit, she is resting comfortably in bed, this is postop day 12 status post exploratory laparotomy, and extensive lysis of adhesions, sigmoid colectomy and colostomy for acute bowel obstruction. Yesterday patient had a CT of abdomen and pelvis which revealed a large discrete fluid collection in the pelvis between the rectum and the urinary bladder that could be related to an abscess. Interventional radiology has been consulted for possible drainage of this abscess, however patient has been on Eliquis, and IR will not be able to proceed with the procedure for about 48 hours. Patient denies abdominal discomfort, NG tube has been inserted, and her about 300-400 mL of brownish colored output. Denies any worsening dyspnea, she needs a lot of encouragement to work with the incentive spirometer, and she is only achieving 250-500 mL on it today. Remains in A. fib but today's rate is better controlled, oral diltiazem has been added in addition to metoprolol. Hemodynamically stable. Patient is Zosyn for empiric antibiotic coverage, she's been afebrile, today's labs have been reviewed, showing white blood cell count of 14.0, hemoglobin of 7.7, serum sodium is 132, the rest of the electrolytes were within normal limits, BUN is 63 and creatinine is 2.4, chest x-ray today shows congestive heart failure with pleural effusions. On 02/26/2019 patient is seen in follow-up in the intensive care unit, she is awake and alert, but only oriented to person, confused, but appears to be in no acute distress, FiO2 is down to 6 L per high flow nasal cannula a pulse ox of 90, denies any respiratory distress, lung sounds are clear, diminished at the bases, remains nothing by mouth, abdomen is tender to palpation, but no acute distress, NGT has been discontinued. Patient has positive bowel sounds. Heparin infusion is on hold, the possibility of a cutaneous drainage of intra- abdominal abscess. Based chest x-ray has been reviewed and showing a right PICC line in the right jugular vein, we will reconsult interventional radiology for repositioning of the PICC line, and trace pleural effusions and bibasilar opacities that may represent atelectasis or pneumonia. Antibiotic coverage in the form of Zosyn, patient has been afebrile. Colostomy is functioning, making liquid brown stool. On 02/27/2019 patient is seen in follow-up in the intensive care unit, she is pleasantly confused, she has a site safety representative at the bedside to prevent her from removing her indwelling catheters. FiO2 down to 4 L and her pulse ox is 92-93%, hemodynamically patient is stable, low-grade fever this morning, no evidence of any distress, denies any abdominal pain, her colostomy is functioning, putting out liquid brown stool, yesterday patient had a percutaneous drain put in for drainage of intra-abdominal abscess, there has been 150 mL of serosanguineous drainage from the tube in the last 24 hours. Hemodynamically she remains stable, point normal saline infusing at a rate of 50 ML per hour, TPN is at 60, yesterday we inserted a Dobbhoff feeding tube for supplementation of her nutrition, patient's appetite remains very poor, patient is practically refusing all meals. Patient will be reinitiated on her oral intake regulation by cardiology. Patient had a low-grade fever with a T-max 100.3F yesterday. Zosyn for antibiotic coverage continues, abscess drainage was sent for culture and is pending at this time. ID service is following. Today's chest x-ray has been reviewed showing prominent lower lung atelectasis and/or consolidation. And continued elevation of right hemidiaphragm. On 03/02/2019 patient seen in follow-up in intensive care unit, she is in no acute distress, pleasant confused, today is postoperative day 18, status post exposure laparotomy, and extensive lysis of adhesions, sigmoid colectomy and colostomy for acute bowel obstruction, patient subsequently also had a percutaneous drain inserted for intra-abdominal abscess, no further cultures are negative, urine culture showed Klebsiella pneumonia and E. coli for which the pa oscar remains on Zosyn, did have a low-grade fevers last night, he service is following, no complaints of abdominal pain, abdomen slightly distended and tympanic, per surgery abdominal flat plate x-ray is being obtained, colostomy is producing liquid brown stool, patient is tolerating tube feedings, appetite remains poor, and patient is on full liquid diet, no signs of respiratory distress, lung sounds are clear diminished at bases, patient does have an effective cough. On 03/03/2019 she is seen in follow-up in the intensive care unit. Patient is awake and alert to person, disoriented to place and time. Patient is complaining of abdominal discomfort today, and this morning apparently she complained of some mild nausea, but has not had any vomiting. Her abdomen seems to be slightly softer on today's exam, are positive bowel sounds 4, low-grade fevers today, patient remains in A. fib, with a rate of 100 BPM, she is on oral anticoagulation in the form of Eliquis. 0.9 normal saline at a rate of 50 ML per hour, antibiotic coverage is in the form of Zosyn and Eraxis. Rate control medications are with oral Cardizem, oral amiodarone and oral metoprolol. Denies any difficulty breathing, pulse Ox 90-92% on 2 L of oxygen. Lung sounds are clear. Percutaneous drain on left side is making minimal amount of serosanguineous output, and the drainage cultures are negative thus far. Objective - Vital Signs Vital signs: Vital Signs Temp 99.0 F 03/03/19 04:00 Pulse 98 03/03/19 08:57 Resp 25 H 03/03/19 07:00 BP 165/97 03/03/19 07:00 Pulse Ox 90 L 03/03/19 07:00 Intake & Output 03/02/19 03/03/19 03/03/19 18:59 06:59 18:59 Intake Total 1270 920 50 Output Total 1625 1180 125 Balance -355 -260 -75 Weight 73.7 kg Intake: IV 700 500 50 Piperacillin-Tazobactam 3 100 .375 gm In Sodium Chloride 0.9% 100 ml @ 25 mls/hr IVPB Q12HR [facility] Rx #:[id number] Sodium Chloride 0.9% 1, 600 500 50 000 ml @ 50 mls/hr IV . Q20H [facility] Rx#:[id number] Intake, IV Titration 100 Amount Anidulafungin 100 mg In 100 Sodium Chloride 0.9% 100 ml @ 84 mls/hr IVPB DAILY [facility] Rx#:[id number] Oral 240 200 Tube Feeding 230 220 Output: Urine 1625 1180 125 Other: Voiding Method Indwelling Catheter Indwelling Catheter - Exam GENERAL EXAM: Alert, pleasant, 83-year-old white female, on 2 L per high flow nasal cannula, and her pulse ox is 91%, comfortable in no apparent distress. HEAD: Normocephalic/atraumatic. EYES: Normal reaction of pupils, equal size. Conjunctiva pink, sclera white. NOSE: Clear with pink turbinates. THROAT: No erythema or exudates. NECK: No masses, no JVD, no thyroid enlargement, no adenopathy. CHEST: No chest wall deformity. Symmetrical expansion. LUNGS: Equal air entry with no rhonchi, no wheezing, diminished breath sounds CVS: Irregular rate and rhythm, normal S1 and S2, no gallops, no murmurs, no ru bs ABDOMEN: Soft, nontender. No hepatosplenomegaly, normal bowel sounds, no guarding or rigidity. Midline incision with maggy intact, colostomy with liquid brown output. Percutaneous drain on the left side with minimal drainage of serosanguineous output EXTREMITIES: No clubbing, no edema, no cyanosis, 2+ pulses and upper and lower extremities. MUSCULOSKELETAL: Muscle strength and tone normal. SPINE: No scoliosis or deformity SKIN: No rashes CENTRAL NERVOUS SYSTEM: Alert and oriented -1, presently confused. No focal deficits, tone is normal in all 4 extremities. PSYCHIATRIC: Alert and oriented -1. Appropriate affect. Intact judgment and insight. - Labs CBC & Chem 7: 03/03/19 05:18 03/03/19 05:14 Labs: Abnormal Lab Results - Last 24 Hours (Table) 03/02/19 03/02/19 03/02/19 Range/Units 11:27 11:58 16:52 WBC (3.8-10.6) k/uL RBC (3.80-5.40) m/uL Hgb (11.4-16.0) gm/dL Hct (34.0-46.0) % Plt Count (150-450) k/uL Chloride (98-107) mmol/L BUN (7-17) mg/dL Creatinine (0.52-1.04) mg/dL Glucose (74-99) mg/dL POC Glucose (mg/dL) 131 H 132 H 135 H (75-99) mg/dL Alkaline Phosphatase (38-126) U/L Total Protein (6.3-8.2) g/dL Albumin (3.5-5.0) g/dL 03/02/19 03/02/19 03/03/19 Range/Units 17:27 21:06 05:14 WBC (3.8-10.6) k/uL RBC (3.80-5.40) m/uL Hgb (11.4-16.0) gm/dL Hct (34.0-46.0) % Plt Count (150-450) k/uL Chloride 109 H (98-107) mmol/L BUN 43 H (7-17) mg/dL Creatinine 1.79 H (0.52-1.04) mg/dL Glucose 113 H (74-99) mg/dL POC Glucose (mg/dL) 140 H 137 H (75-99) mg/dL Alkaline Phosphatase 171 H (38-126) U/L Total Protein 6.1 L (6.3-8.2) g/dL Albumin 2.8 L (3.5-5.0) g/dL 03/03/19 03/03/19 Range/Units 05:18 07:05 WBC 11.3 H (3.8-10.6) k/uL RBC 2.80 L (3.80-5.40) m/uL Hgb 8.1 L (11.4-16.0) gm/dL Hct 25.3 L (34.0-46.0) % Plt Count 479 H (150-450) k/uL Chloride (98-107) mmol/L BUN (7-17) mg/dL Creatinine (0.52-1.04) mg/dL Glucose (74-99) mg/dL POC Glucose (mg/dL) 128 H (75-99) mg/dL Alkaline Phosphatase (38-126) U/L Total Protein (6.3-8.2) g/dL Albumin (3.5-5.0) g/dL Microbiology - Last 24 Hours (Table) 03/01/19 18:20 Urine Culture - Final Urine,Catheterized 02/26/19 15:15 Gram Stain - Final Aspirate Body Fluid Culture - Final 02/26/19 15:15 Anaerobic Culture - Final Other - Other Assessment and Plan Plan: Assessment: #1. Acute bowel obstruction, status post exploratory laparotomy, extensive lysis of adhesions, sigmoid colectomy, and colostomy, postoperative day 19 #2. Large fluid collection in the pelvis could be related to an abscess, interventional radiology has been consulted for drainage, patient has a per cutaneous drain for drainage of abscess, cultures are pending, negative thus far. Drainage output has diminished and over the last 24 hours is down to 25 mL on 03/03/2019 #3. Acute urinary tract infection with cultures positive for Klebsiella pneumonia and E. coli #4. Bilateral hydronephrosis seen on the CT of the abdomen and pelvis #5. Acute hypoxic respiratory failure suspect aspiration pneumonia, and postoperative atelectasis #6. Acute urinary tract infection secondary to Klebsiella pneumonia and E. coli, susceptible to Zosyn which the patient is currently on #7. A. fib with RVR, on oral metoprolol for rate control, and Eliquis #8. Chronic atrial fibrillation #9. Benign essential hypertension #10. History of hyperlipidemia #11. Acute on chronic renal failure patient has chronic kidney disease stage III at baseline #12. Confusion, related to [place] Encephalopathy Plan: Antibiotics per ID service recommendations, hemodynamically patient remains stable, she is complaining of more abdominal tenderness today however physical exam reveals less distended left tympanic abdomen today, bowel sounds 4, will speak to surgery to see if there are any plans to rescan the abdomen and pelvis. Continue oral anticoagulation, is in A. fib but the rate is better controlled, hemodynamically stable, continues to have low-grade fevers, no respiratory difficulty, maintaining stable oxygenation on 2 L, encourage deep breathing and coughing, mentation remains confused, maintaining safety precautions and site safety representative is at the bedside. Monitor oral intake, patient pulled out her Dobbhoff tube, may need to place him back in if her oral intake remains poor. I performed a history & physical examination of the patient and discussed their management with my nurse practitioner, Suzanne Kaur. I reviewed the nurse practitioner's note and agree with the documented findings and plan of care. Lung sounds are positive for diminished breath sounds with minimal rhonchi. The findings and the impression was discussed with the patient. I attest to the documentation by the nurse practitioner. Time with Patient: Less than 30
[2019-03-03] MEDS ORDERED: IOPAMIDOL CONTRAST (ORAL USE) VIAL PO PRN (09:57)
--- NOTE | 2019-03-03 10:15 | PN ---
PROGRESS NOTE Mrs. Ling is a lady with atrial fib, rapid ventricular rate, on the combination of high dose beta ahsan and amiodarone. Blood pressure control is fair but not quite optimal. Heart rate control has improved. Blood pressure is about 150/90, pulse rate is about 96 per minute irregular. JVD of 1 cm, no carotid bruit. S1-S2 heard normally, irregular rhythm noted. Short systolic murmur noted. Lungs reveal diminished air entry, abdomen is soft, nontender. Lower extremities reveal diminished pulses. I am recommending that we decrease amiodarone to 200 mg b.i.d., add Cardizem 60 mg t.i.d. and hopefully we can come back on the beta ahsan. Continue his other medications as before. Overall prognosis remains guarded. MMODL / IJN: [id number] /
--- NOTE | 2019-03-03 11:30 | P.PN ---
<Siobhan Dugan A - Last Filed: 03/03/19 11:25> Subjective Progress Note Date: 03/03/19 CHIEF COMPLAINT: Abdominal pain HISTORY OF PRESENT ILLNESS: Patient is status post exploratory laparotomy, extensive lysis of adhesions, sigmoid colectomy, and end colostomy on 02/12/19. Patient examined at the bedside in the ICU. Apparently, this morning patient was complaining of abdominal pain and mild nausea. She received IV morphine. She is slightly lethargic at the time of my examination. She denies abdominal pain. She pulled out her Dobbhoff. Nursing reports the patient did eat about 75% of her dinner last night. WBC 11.3. PHYSICAL EXAM: VITAL SIGNS: Reviewed GENERAL: Well-developed in no acute distress. CHEST: Non-labored respirations and equal bilateral excursions. ABDOMEN: Soft. Nondistended. Dressing to abdomen clean dry intact. Ostomy with brown liquid stool noted. Drainage bag with serosanguineous drainage. PSYCH: Appropriate affect. Alert and oriented to person only. SKIN: Well perfused. Good skin turgor. ASSESSMENT: 1. Abdominal pain, status post exploratory laparotomy, extensive lysis of adhesions, sigmoid colectomy, and end colostomy secondary to colonic obstruction 2. Intrapelvic fluid collection PLAN: Continue dressing changes Monitor output from drainage collection bag Continue antibiotics per ID. Monitor WBC Obtain CT abdomen pelvis with oral contrast only Continue oral diet as tolerated. Will continue to monitor PO intake. If intake remains poor, may require reinsertion of Dobbhoff or possible PEG tube placement Nurse practitioner note has been reviewed by physician. Signing provider agrees with the documented findings, assessment, and plan of care. Objective - Vital Signs Vital signs: Vital Signs Temp 99.0 F 03/03/19 04:00 Pulse 98 03/03/19 08:57 Resp 25 H 03/03/19 07:00 BP 165/97 03/03/19 07:00 Pulse Ox 90 L 03/03/19 07:00 Intake & Output 03/02/19 03/03/19 03/03/19 18:59 06:59 18:59 Intake Total 1270 920 200 Output Total 1625 1180 480 Balance -355 -260 -280 Weight 73.7 kg Intake: IV 700 500 200 Piperacillin-Tazobactam 3 100 .375 gm In Sodium Chloride 0.9% 100 ml @ 25 mls/hr IVPB Q12HR [facility] Rx #:[id number] Sodium Chloride 0.9% 1, 600 500 200 000 ml @ 50 mls/hr IV . Q20H [facility] Rx#:[id number] Intake, IV Titration 100 Amount Anidulafungin 100 mg In 100 Sodium Chloride 0.9% 100 ml @ 84 mls/hr IVPB DAILY [facility] Rx#:[id number] Oral 240 200 Tube Feeding 230 220 Output: Urine 1625 1180 480 Other: Voiding Method Indwelling Catheter Indwelling Catheter Indwelling Catheter - Labs CBC & Chem 7: 03/03/19 05:18 03/03/19 05:14 Labs: Abnormal Lab Results - Last 24 Hours (Table) 03/02/19 03/02/19 03/02/19 Range/Units 11:27 11:58 16:52 WBC (3.8-10.6) k/uL RBC (3.80-5.40) m/uL Hgb (11.4-16.0) gm/dL Hct (34.0-46.0) % Plt Count (150-450) k/uL Chloride (98-107) mmol/L BUN (7-17) mg/dL Creatinine (0.52-1.04) mg/dL Glucose (74-99) mg/dL POC Glucose (mg/dL) 131 H 132 H 135 H (75-99) mg/dL Alkaline Phosphatase (38-126) U/L Total Protein (6.3-8.2) g/dL Albumin (3.5-5.0) g/dL 03/02/19 03/02/19 03/03/19 Range/Units 17:27 21:06 05:14 WBC (3.8-10.6) k/uL RBC (3.80-5.40) m/uL Hgb (11.4-16.0) gm/dL Hct (34.0-46.0) % Plt Count (150-450) k/uL Chloride 109 H (98-107) mmol/L BUN 43 H (7-17) mg/dL Creatinine 1.79 H (0.52-1.04) mg/dL Glucose 113 H (74-99) mg/dL POC Glucose (mg/dL) 140 H 137 H (75-99) mg/dL Alkaline Phosphatase 171 H (38-126) U/L Total Protein 6.1 L (6.3-8.2) g/dL Albumin 2.8 L (3.5-5.0) g/dL 03/03/19 03/03/19 Range/Units 05:18 07:05 WBC 11.3 H (3.8-10.6) k/uL RBC 2.80 L (3.80-5.40) m/uL Hgb 8.1 L (11.4-16.0) gm/dL Hct 25.3 L (34.0-46.0) % Plt Count 479 H (150-450) k/uL Chloride (98-107) mmol/L BUN (7-17) mg/dL Creatinine (0.52-1.04) mg/dL Glucose (74-99) mg/dL POC Glucose (mg/dL) 128 H (75-99) mg/dL Alkaline Phosphatase (38-126) U/L Total Protein (6.3-8.2) g/dL Albumin (3.5-5.0) g/dL Microbiology - Last 24 Hours (Table) 03/01/19 18:20 Urine Culture - Final Urine,Catheterized 02/26/19 15:15 Gram Stain - Final Aspirate Body Fluid Culture - Final 02/26/19 15:15 Anaerobic Culture - Final Other - Other <Soham Miller - Last Filed: 03/03/19 17:14> Subjective Patient with improved oral intake. CAT scan was performed because of some increased pain. CAT scan shows decreased bowel dilatation and decrease in the size of the fluid collection in the pelvis. Suspect seroma more than abscess at this time. We will remove the drain in the next 24-48 hours. Agree with holding Dobbhoff replacement. Objective - Vital Signs Vital signs: Vital Signs Temp 99.9 F H 03/03/19 16:00 Pulse 68 03/03/19 16:26 Resp 20 03/03/19 16:00 BP 155/82 03/03/19 16:00 Pulse Ox 95 03/03/19 16:00 Intake & Output 03/02/19 03/03/19 03/03/19 18:59 06:59 18:59 Intake Total 6501 212 2032 Output Total 1625 1180 1320 Balance -355 260 -20 Weight 73.7 kg Intake: IV 700 500 500 Piperacillin-Tazobactam 3 100 .375 gm In Sodium Chloride 0.9% 100 ml @ 25 mls/hr IVPB Q12HR [facility] Rx #:[id number] Sodium Chloride 0.9% 1, 600 500 500 000 ml @ 50 mls/hr IV . Q20H [facility] Rx#:[id number] Intake, IV Titration 100 200 Amount Anidulafungin 100 mg In 100 100 Sodium Chloride 0.9% 100 ml @ 84 mls/hr IVPB DAILY [facility] Rx#:[id number] Piperacillin-Tazobactam 3 100 .375 gm In Sodium Chloride 0.9% 100 ml @ 25 mls/hr IVPB Q8HR [facility] Rx# :[id number] Oral 240 200 600 Tube Feeding 230 220 Output: Urine 1625 1180 920 Stool 400 Other: Voiding Method Indwelling Catheter Indwelling Catheter Indwelling Catheter - Labs CBC & Chem 7: 03/03/19 05:18 03/03/19 05:14 Labs: Abnormal Lab Results - Last 24 Hours (Table) 03/02/19 03/02/19 03/03/19 Range/Units 17:27 21:06 05:14 WBC (3.8-10.6) k/uL RBC (3.80-5.40) m/uL Hgb (11.4-16.0) gm/dL Hct (34.0-46.0) % Plt Count (150-450) k/uL Chloride 109 H (98-107) mmol/L BUN 43 H (7-17) mg/dL Creatinine 1.79 H (0.52-1.04) mg/dL Glucose 113 H (74-99) mg/dL POC Glucose (mg/dL) 140 H 137 H (75-99) mg/dL Alkaline Phosphatase 171 H (38-126) U/L Total Protein 6.1 L (6.3-8.2) g/dL Albumin 2.8 L (3.5-5.0) g/dL 03/03/19 03/03/19 03/03/19 Range/Units 05:18 07:05 11:58 WBC 11.3 H (3.8-10.6) k/uL RBC 2.80 L (3.80-5.40) m/uL Hgb 8.1 L (11.4-16.0) gm/dL Hct 25.3 L (34.0-46.0) % Plt Count 479 H (150-450) k/uL Chloride (98-107) mmol/L BUN (7-17) mg/dL Creatinine (0.52-1.04) mg/dL Glucose (74-99) mg/dL POC Glucose (mg/dL) 128 H 136 H (75-99) mg/dL Alkaline Phosphatase (38-126) U/L Total Protein (6.3-8.2) g/dL Albumin (3.5-5.0) g/dL 03/03/19 Range/Units 16:55 WBC (3.8-10.6) k/uL RBC (3.80-5.40) m/uL Hgb (11.4-16.0) gm/dL Hct (34.0-46.0) % Plt Count (150-450) k/uL Chloride (98-107) mmol/L BUN (7-17) mg/dL Creatinine (0.52-1.04) mg/dL Glucose (74-99) mg/dL POC Glucose (mg/dL) 102 H (75-99) mg/dL Alkaline Phosphatase (38-126) U/L Total Protein (6.3-8.2) g/dL Albumin (3.5-5.0) g/dL Microbiology - Last 24 Hours (Table) 03/01/19 18:20 Urine Culture - Final Urine,Catheterized 02/26/19 15:15 Gram Stain - Final Aspirate Body Fluid Culture - Final 02/26/19 15:15 Anaerobic Culture - Final Other - Other Assessment and Plan (1) Abdominal pain Current Visit: Yes Status: Acute Code(s): R10.9 - UNSPECIFIED ABDOMINAL PAIN SNOMED Code(s): 28861709
[2019-03-03] MEDS: DILTIAZEM ORAL 60 MG TAB PO SCH ×3 (11:52→21:10)
[2019-03-03 12:00] LABS: Glucose,Whole Blood 136 mg/dL (75-99)
--- NOTE | 2019-03-03 14:23 | CT ---
EXAMINATION TYPE: CT abdomen pelvis wo con DATE OF EXAM: 03/03/2019 COMPARISON: 02/23/2019 INDICATION: follow up to abscess DLP: 562 mGycm, Automated exposure control for dose reduction was used. CONTRAST: 0 mL of Isovue 300. Study performed with Oral Contrast TECHNIQUE: Axial images were obtained from above the diaphragm to the pubic rami in the axial plane a t 5 mm thick sections. Reconstructed images are reviewed on the computer in the coronal plane. FINDINGS: Limited CT sections are obtained the lung bases. Small bilateral pleural effusions are present. Some compressive atelectasis is within the dependent portions of the lung bases. Liver and spleen appear unremarkable without masses cysts or hydronephrosis. Gallbladder is unremarka ble. Adrenal glands are normal. Left kidney is atrophic. Right kidney has a posterior inferior cyst m easuring 2.7 cm and 10 Hounsfield units. There is a hypodensity within the midportion of the pancreas body measuring 1.9 cm. Pancreatic duct d ilatation is evident within the head and body the pancreas. This appears similar to the prior examin ation. Loops of bowel without contrast appear normal. There are some contrast within distal loops of bowel Urinary bladder is decompressed the Murphy catheter. Small amount of air is present which may be relat ed to catheter placement. There is a drainage catheter in the lower pelvis. Some residual abscess ant erior to the rectum may remain present. This is largely resolved. Colostomy is in the left lower quadrant. Nonspecific bowel loops are present. Postsurgical changes ar e on the right:. IMPRESSIONS: 1. Pelvic abscess in the presacral space is largely resolved. Small amount of residual may remain pr esent with a drainage catheter present. 2. 1.9 cm hypodensity within the body the pancreas. Pancreatic duct is prominent extending towards th e ampulla gallbladder. Pancreatic neoplasm is not excluded at this time.
[2019-03-03] MEDS: PIPERACILLIN-TAZOBACTAM 3.375 GM in SODIUM CHLORIDE 0.9% 100 ML IVPB SCH (15:48)
[2019-03-03 16:57] LABS: Glucose,Whole Blood 102 mg/dL (75-99)
[2019-03-03] MEDS: SODIUM CHLORIDE 0.9% 1,000 ML IV SCH ×2 (17:09→22:03)
--- NOTE | 2019-03-03 17:47 | P.PN ---
Subjective Progress Note Date: 03/03/19 Principal diagnosis: mechanical obstruction with small bowel and distended abdomen with history of adhesions in the past. The progress note dictated on 02/08/2090 by Patient with history notable bowel movement or stool or passing flatus for more than one week duration x-ray indicating small bowel mechanical obstruction. And patient currently nothing by mouth with NG tube which she did some relief. Her vital sign temperature 90.8 orally F Fahrenheit and her pulse rate 80 and she developed on the surgical floor atrial fibrillation with a rate of 1:30 P 8/m patient transferred to property assessment monitor floor with cardiology consultation which she was started on cardiac exam drip. And seen by Dr. ISATU Zamudio. Respiratory rate 16 and her blood pressure is hypertensive in spite of trial of medication 187/84. She is on nasal cannula 2 L of oxygen with a pulse ox 95%. current laboratories indicating that her WBC 5.3 with a hemoglobin 11.6, her platelet count 414.next is her PTT 32.6with the normal range 30.6. Minimally elevated. Chemistry indicating sodium 144 potassium 3.8 chloride 108 carbon dioxid 28, anion gap 8, BUN 20, creatinine 1.94, EGFR 23 with chronic kidney disease stage IV. Glucose 131AST and LT normal alk phos 137 total protein 6.1 and albumin 3.4 thyroid function is normal and the free T3 some little bit lower than normal that is because of her illness Nephrology evaluation and assessment indicating patient with the UTI Klebsiella pneumonia and E. coli treated according to the culture with the assessment acute kidney injury possibly prerenal improved with hydration. Chronic kidney disease stage IV with the creatinine near 2 secondary to hydronephrosis and left renal atrophy. #3 abdominal pain with questionable diverticulitis and chronic obstruction and NG tube for decompression. Neurogenic bladder and uses a catheterization 4-5 a day metabolic acidosis and she is on bicarb hypertension is controlled and UTI. Physical exam patient status post barium enema and patient the result reviewed by Dr. Sahu and his impression will be discussed with the family. HEENT was negative neck was supple and chest was clear and the heart was currently controlled atrophic And abdomen is tender distended and with the small bowel obstruction extremities no edema. Assessment small bowel obstruction mechanical and high fall to the patient should have surgical intervention. However this is a surgical case and up to the family and the surgeon. Date of service 03/03/[address] Maren M.D. [facility]. Laboratory her white count is 11.3 and hemoglobin 8.1 and platelet count 479 with a moderate hypochromasia. Sodium 142, potassium 4, BUN 43, creatinine 1.79, glucose 113. Her peripheral TPN has been discontinued and her blood sugar common back to normal with the POC ranging between 102-128. Her him alkaline phosphatase 171, total protein 6.1 albumin 2.8. Her temperature 99.9 F pulse rate 68-59 sinus rhythm respiratory rate 20 per minute nonlabored, blood pressure ranging around 146-92 and 155/82 with the oxygen saturation 95 on 2 L nasal cannula. Discussed with the patient and her [id number] and the benefit of the PICC line and feeding through the systolic has, patient removed the posterior from her nose which expected if it put in place again. She is not reliable for eating. On exam: Conscious alert she intermittently confused her [id number] was present and we discussed the benefits of acute and future retirement for conditioning and rehabilitation. Spatially we have advanced right hip arthritis and inability to walk. HEENT negative Neck was supple no JVD, no Dobbhoff tube and no feeding tube. She still have his Murphy catheter with hematuria and a history of neurogenic bladder and right hydronephrosis hydroureter as well as she had atrophic left kidney with the chronic kidney disease stage IV. His chest is created bilateral with a right hemidiaphragm elevation and she had some atelectasis no evidence of pneumonia at this time she is on Zosyn all discussed with Dr. Eulalio alex. Heart is atrial fibrillation currently sinus rhythm with controlled ventricular response and ranging between 68-59. Abdomen positive bowel sounds the bag colostomy bag left sided and does have a stool no apparent gas today in the bag she is not tender in the four-quadrant. Extremities she had inflatable antithrombotic stocking and also on Eliquis anticoagulant. Assessment: Gradual improvement. Still hypoalbuminemia and the hypoproteinemia with protein calorie deficiency secondary inability to eat. Patient has a trial off TPN. And the trial of PEG tube. And we discussing the trial of PEG tube. Plan we'll discuss that idea and PEG tube with Dr. Sahu today and he will see him the family has any more ideas. Objective - Vital Signs Vital signs: Vital Signs Temp 99.9 F H 03/03/19 16:00 Pulse 68 03/03/19 16:26 Resp 20 03/03/19 16:00 BP 155/82 03/03/19 16:00 Pulse Ox 95 03/03/19 16:00 Intake & Output 03/02/19 03/03/19 03/03/19 18:59 06:59 18:59 Intake Total 1102 552 6754 Output Total 1625 1180 1320 Balance -355 -260 -20 Weight 73.7 kg Intake: IV 700 500 500 Piperacillin-Tazobactam 3 100 .375 gm In Sodium Chloride 0.9% 100 ml @ 25 mls/hr IVPB Q12HR [facility] Rx #:[id number] Sodium Chloride 0.9% 1, 600 500 500 000 ml @ 50 mls/hr IV . Q20H [facility] Rx#:[id number] Intake, IV Titration 100 200 Amount Anidulafungin 100 mg In 100 100 Sodium Chloride 0.9% 100 ml @ 84 mls/hr IVPB DAILY [facility] Rx#:[id number] Piperacillin-Tazobactam 3 100 .375 gm In Sodium Chloride 0.9% 100 ml @ 25 mls/hr IVPB Q8HR [facility] Rx# :[id number] Oral 240 200 600 Tube Feeding 230 220 Output: Urine 1625 1180 920 Stool 400 Other: Voiding Method Indwelling Catheter Indwelling Catheter Indwelling Catheter - Labs CBC & Chem 7: 03/03/19 05:18 03/03/19 05:14 Labs: Abnormal Lab Results - Last 24 Hours (Table) 03/02/19 03/03/19 03/03/19 Range/Units 21:06 05:14 05:18 WBC 11.3 H (3.8-10.6) k/uL RBC 2.80 L (3.80-5.40) m/uL Hgb 8.1 L (11.4-16.0) gm/dL Hct 25.3 L (34.0-46.0) % Plt Count 479 H (150-450) k/uL Chloride 109 H (98-107) mmol/L BUN 43 H (7-17) mg/dL Creatinine 1.79 H (0.52-1.04) mg/dL Glucose 113 H (74-99) mg/dL POC Glucose (mg/dL) 137 H (75-99) mg/dL Alkaline Phosphatase 171 H (38-126) U/L Total Protein 6.1 L (6.3-8.2) g/dL Albumin 2.8 L (3.5-5.0) g/dL 03/03/19 03/03/19 03/03/19 Range/Units 07:05 11:58 16:55 WBC (3.8-10.6) k/uL RBC (3.80-5.40) m/uL Hgb (11.4-16.0) gm/dL Hct (34.0-46.0) % Plt Count (150-450) k/uL Chloride (98-107) mmol/L BUN (7-17) mg/dL Creatinine (0.52-1.04) mg/dL Glucose (74-99) mg/dL POC Glucose (mg/dL) 128 H 136 H 102 H (75-99) mg/dL Alkaline Phosphatase (38-126) U/L Total Protein (6.3-8.2) g/dL Albumin (3.5-5.0) g/dL Microbiology - Last 24 Hours (Table) 03/01/19 18:20 Urine Culture - Final Urine,Catheterized 02/26/19 15:15 Gram Stain - Final Aspirate Body Fluid Culture - Final 02/26/19 15:15 Anaerobic Culture - Final Other - Other
[2019-03-03 20:26] LABS: Glucose,Whole Blood 109 mg/dL (75-99)
[2019-03-03] MEDS: ATORVASTATIN 10 MG TAB PO SCH (21:09)
[2019-03-03] MEDS: DULoxetine HCL 60 MG CAPSULE.DR PO SCH (21:10)
--- NOTE | 2019-03-03 23:06 | PN ---
PROGRESS NOTE DATE OF SERVICE: 03/03/2019 REASON FOR FOLLOWUP: 1. Diverticulitis secondary to abdominal abscess. 2. Urinary tract infection. INTERVAL HISTORY: The patient has been running a low -grade fever. She has been complaining of more abdominal pain. She did receive some of her pain medication and lethargic during my evaluation and unable to provide any history. The patient not on any pressor support. PHYSICAL EXAMINATION: Blood pressure 154/81 with a pulse of 58, temperature 98.9. She is 96% on 2 L nasal cannula. General description is an elderly female, lying in bed in no distress. Respiratory system: Unlabored breathing. Decreased breath sounds at the bases. No wheeze. Heart S1, S2. Regular rate and rhythm. Abdomen soft. No tenderness. No guarding or rigidity. LABS: Hemoglobin 8.1, white count of 11.3, BUN of 43, creatinine 1.79. Repeat UA was mildly positive and cultures so far negative. CT abdominal and pelvis completed today did show overall resolution of the pelvic abscess with hyperdensity in the body of the pancreas. DIAGNOSTIC IMPRESSION AND PLAN: Patient with perforated diverticulitis status post diverting colostomy and subsequently did have fluid collection with concern for abscess that has been drained. Blood culture has been negative. Now did have a low-grade fever. The patient repeat CT did not show any evidence of any abscess or inflammation. The patient also had a positive UA. The Murphy catheter was changed and repeat UA has been negative so far to maintain on Eraxis and Zosyn at this point and will monitor clinical course closely. Continue supportive care. MMODL / IJN: [id number] /
[2019-03-04] MEDS: PIPERACILLIN-TAZOBACTAM 3.375 GM in SODIUM CHLORIDE 0.9% 100 ML IVPB SCH ×3 (00:56→16:18)
[2019-03-04 04:53] LABS: HCT 21.5 % (34.0-46.0); Hypochromasia Moderate; MCH 29.1 pg (25.0-35.0); MCHC 32.1 g/dL (31.0-37.0); MCV 90.4 fL (80.0-100.0); Mean Platelet Volume 7.8; Platelet Count 403 k/uL (150-450); Poikilocytosis Slight; RBC 2.37 m/uL (3.80-5.40); RDW 15.5 % (11.5-15.5); WBC 8.2 k/uL (3.8-10.6)
[2019-03-04 05:32] LABS: HGB 6.9 gm/dL (11.4-16.0)
[2019-03-04 06:15] LABS: Albumin 2.4 g/dL (3.5-5.0); Calcium 8.5 mg/dL (8.4-10.2); Potassium 3.9 mmol/L (3.5-5.1); Total Bilirubin 0.5 mg/dL (0.2-1.3); Total Protein 5.4 g/dL (6.3-8.2)
[2019-03-04] MEDS: IPRATROPIUM-ALBUTEROL 3 ML NEB INHALATION SCH ×4 (06:36→20:48)
[2019-03-04] MEDS: BUDESONIDE 0.5 MG/2 ML NEBU INHALATION SCH ×2 (06:36→20:48)
[2019-03-04] MEDS: INSULIN ASPART (NovoLOG) 100 UNIT/ML VIAL SQ SCH ×5 (06:40→20:40)
[2019-03-04] MEDS: DRONABINOL 2.5 MG CAP PO SCH ×2 (06:54→16:30)
[2019-03-04] MEDS ORDERED: POTASSIUM BICARBONATE/CIT AC 20 MEQ TABLET.EFF NG-TUBE SCH (07:00)
[2019-03-04 07:06] LABS: Glucose,Whole Blood 101 mg/dL (75-99)
[2019-03-04] MEDS: ANIDULAFUNGIN 100 MG in SODIUM CHLORIDE 0.9% 100 ML IVPB SCH (08:40)
[2019-03-04] MEDS: METOPROLOL TARTRATE 50 MG TAB PO SCH ×3 (08:41→20:41)
[2019-03-04] MEDS: AMIODARONE 200 MG TAB PO SCH ×2 (08:41→20:38)
[2019-03-04] MEDS: DILTIAZEM ORAL 60 MG TAB PO SCH ×3 (08:41→20:43)
[2019-03-04] MEDS: NYSTATIN 100,000 UNIT/ML SUSP 500,000 UNIT/5 ML CUP PO SCH ×4 (08:41→20:41)
[2019-03-04] MEDS: APIXABAN 2.5 MG TABLET PO SCH (08:41)
--- NOTE | 2019-03-04 09:35 | P.PN ---
Subjective Progress Note Date: 03/04/19 Principal diagnosis: Colonic obstruction Patient somewhat confused this morning. Denies abdominal pain. No shortness of breath. Still with very poor appetite. Hemoglobin today 6.9. Increased hematuria noted throughout the night. Eloquis was thought to be on hold but given this morning. Objective - Vital Signs Vital signs: Vital Signs Temp 98.0 F 03/04/19 04:00 Pulse 65 03/04/19 07:00 Resp 25 H 03/04/19 07:00 BP 160/79 03/04/19 07:00 Pulse Ox 93 L 03/04/19 07:00 Intake & Output 03/03/19 03/04/19 03/04/19 18:59 06:59 18:59 Intake Total 1480 650 50 Output Total 1530 1015 50 Balance -50 -365 0 Weight 70.6 kg Intake: IV 650 550 50 Sodium Chloride 0.9% 1, 650 550 50 000 ml @ 50 mls/hr IV . Q20H [facility] Rx#:[id number] Intake, IV Titration 200 100 Amount Anidulafungin 100 mg In 100 Sodium Chloride 0.9% 100 ml @ 84 mls/hr IVPB DAILY [facility] Rx#:[id number] Piperacillin-Tazobactam 3 100 100 .375 gm In Sodium Chloride 0.9% 100 ml @ 25 mls/hr IVPB Q8HR [facility] Rx# :[id number] Oral 630 Output: Drainage 25 Left Buttock 25 Urine 1130 790 50 Stool 400 200 Other: Voiding Method Indwelling Catheter Indwelling Catheter - Exam Abdomen: Soft, nondistended, ostomy functioning, wick sites clean and dry, drain serosanguineous and scant - Labs CBC & Chem 7: 03/04/19 04:25 03/04/19 04:25 Labs: Abnormal Lab Results - Last 24 Hours (Table) 03/03/19 03/03/19 03/03/19 Range/Units 11:58 16:55 20:25 RBC (3.80-5.40) m/uL Hgb (11.4-16.0) gm/dL Hct (34.0-46.0) % Chloride (98-107) mmol/L BUN (7-17) mg/dL Creatinine (0.52-1.04) mg/dL POC Glucose (mg/dL) 136 H 102 H 109 H (75-99) mg/dL Total Protein (6.3-8.2) g/dL Albumin (3.5-5.0) g/dL 03/04/19 03/04/19 03/04/19 Range/Units 04:25 04:25 07:04 RBC 2.37 L (3.80-5.40) m/uL Hgb 6.9 L* (11.4-16.0) gm/dL Hct 21.5 L (34.0-46.0) % Chloride 114 H (98-107) mmol/L BUN 39 H (7-17) mg/dL Creatinine 1.71 H (0.52-1.04) mg/dL POC Glucose (mg/dL) 101 H (75-99) mg/dL Total Protein 5.4 L (6.3-8.2) g/dL Albumin 2.4 L (3.5-5.0) g/dL Assessment and Plan (1) Abdominal pain Narrative/Plan: Long discussion with the patient and her [id number] yesterday. Also similar discussion with Dr. Engel. Currently we will plan PEG tube placement given the patient's poor oral intake. Will hold eloquis. Tentatively plan EGD with PEG tube on Saturday. We'll remove the drain tube at that time as well since she will be off of her anticoagulation. For now continue encouraging oral intake. Decision regarding PRBC transfusion per pulmonary. Risks of the PEG tube discussed with the patient and her family. These risks include but not limited to bleeding, infection, leak, abscess, wound, fistula, they understand and wish to proceed. Current Visit: Yes Status: Acute Code(s): R10.9 - UNSPECIFIED ABDOMINAL PAIN SNOMED Code(s): 73032518
--- NOTE | 2019-03-04 09:43 | P.PN ---
Subjective Patient is seen in follow-up for acute kidney injury on chronic kidney disease. Renal function is stable. She is nonoliguric. Underwent exploratory laparotomy with sigmoid colectomy and end colostomy this admission. She pulled out dobhoff. Oral intake is just fair. Denies chest pain or shortness of breath. Scheduled for PEG tube placement tomorrow. Vital signs are stable. General: The patient appeared well nourished and normally developed. HEENT: Head exam is unremarkable. Neck is without jugular venous distension. LUNGS: Lungs are clear to auscultation and percussion. Breath sounds decreased. HEART: Rate and Rhythm are regular. First and second heart sounds normal. No murmurs, rubs or gallops. ABDOMEN: Bowel sounds present. Soft. EXTREMITITES: No clubbing, cyanosis, or edema. Objective - Vital Signs Vital signs: Vital Signs Temp 98.0 F 03/04/19 04:00 Pulse 65 03/04/19 07:00 Resp 25 H 03/04/19 07:00 BP 160/79 03/04/19 07:00 Pulse Ox 93 L 03/04/19 07:00 Intake & Output 03/03/19 03/04/19 03/04/19 18:59 06:59 18:59 Intake Total 1480 650 50 Output Total 1530 1015 50 Balance -50 -365 0 Weight 70.6 kg Intake: IV 650 550 50 Sodium Chloride 0.9% 1, 650 550 50 000 ml @ 50 mls/hr IV . Q20H [facility] Rx#:[id number] Intake, IV Titration 200 100 Amount Anidulafungin 100 mg In 100 Sodium Chloride 0.9% 100 ml @ 84 mls/hr IVPB DAILY [facility] Rx#:[id number] Piperacillin-Tazobactam 3 100 100 .375 gm In Sodium Chloride 0.9% 100 ml @ 25 mls/hr IVPB Q8HR [facility] Rx# :[id number] Oral 630 Output: Drainage 25 Left Buttock 25 Urine 1130 790 50 Stool 400 200 Other: Voiding Method Indwelling Catheter Indwelling Catheter - Labs CBC & Chem 7: 03/04/19 04:25 03/04/19 04:25 Labs: Abnormal Lab Results - Last 24 Hours (Table) 03/03/19 03/03/19 03/03/19 Range/Units 11:58 16:55 20:25 RBC (3.80-5.40) m/uL Hgb (11.4-16.0) gm/dL Hct (34.0-46.0) % Chloride (98-107) mmol/L BUN (7-17) mg/dL Creatinine (0.52-1.04) mg/dL POC Glucose (mg/dL) 136 H 102 H 109 H (75-99) mg/dL Total Protein (6.3-8.2) g/dL Albumin (3.5-5.0) g/dL 03/04/19 03/04/19 03/04/19 Range/Units 04:25 04:25 07:04 RBC 2.37 L (3.80-5.40) m/uL Hgb 6.9 L* (11.4-16.0) gm/dL Hct 21.5 L (34.0-46.0) % Chloride 114 H (98-107) mmol/L BUN 39 H (7-17) mg/dL Creatinine 1.71 H (0.52-1.04) mg/dL POC Glucose (mg/dL) 101 H (75-99) mg/dL Total Protein 5.4 L (6.3-8.2) g/dL Albumin 2.4 L (3.5-5.0) g/dL Assessment and Plan Plan: Assessment: 1. Acute kidney injury secondary to ATN. Improving with IV hydration. Renal function stable - creatinine 1.71 today. 2. Chronic kidney disease stage IV with baseline creatinine near 1.7-1.9 secondary to nephrosclerosis and left renal atrophy. 3. S/p exp lap with sigmoid colectomy and end colostomy 02/12/19. 4. Neurogenic bladder. Patient performs self catheterizations 4-5 times daily. Now has Murphy. 5. Metabolic acidosis secondary to acute kidney injury. Stable. 6. Hypertension with chronic kidney disease. 7. UTI with urine culture positive for Klebsiella and E. coli maintained on antibiotics. 8. Hyponatremia secondary to poor solute intake. Resolved. 9. A-fib maintained on Lopressor and Cardizem. 10. Acute blood loss anemia. Plan: Maintain normal saline at 50 mL an hour. Encouraged oral intake. Avoid nephrotoxins. Continue to monitor renal function and urine output. Add Aranesp. Check iron studies. Consider transfusing 1 unit of packed red cells today. Scheduled for PEG tube placement tomorrow.
--- NOTE | 2019-03-04 10:10 | PN ---
PROGRESS NOTE Mrs. Ling is in sinus rhythm today. I am recommending we decrease metoprolol to 50 mg t.i.d. She is feeling better, denies chest pain. S1-S2 heard normally, short systolic murmur noted. Lungs reveal diminished air entry. Abdomen is soft. The rest of physical examination is unchanged. Patient can move to telemetry. MMSALOME / IJN: [id number] /
--- NOTE | 2019-03-04 11:21 | P.PN ---
Subjective Progress Note Date: 03/04/19 Principal diagnosis: Acute bowel obstruction status post laparotomy with extensive lysis of adhesions and sigmoid colectomy and end colostomy postoperative day 5 This is a pleasant 83-year-old female patient admitted back on 02/07/2019 with complaints of constipation and abdominal discomfort. She had not moved her bowels for several days prior. Abdominal x-rays did show evidence of constipation. Fleet enema and MiraLAX at home were unsuccessful. She was subsequently admitted for abdominal bloating and discomfort. She was found to have a colon obstruction and yesterday had undergone exposure laparotomy, extensive lysis of adhesions, sigmoid colectomy, end colostomy done by Dr. Miller. She remained hypoxic postoperatively and was placed on BiPAP with an FiO2 of 80%. We're consulted for the same. No chest x-ray was done. She is seen today on the selective care unit. She is currently awake and alert in no acute distress. She is having some ongoing abdominal discomfort. She has a midline incision with maggy intact and a colostomy with stool present. She is currently on 6 L high flow nasal cannula and maintaining O2 saturation in the mid 90s. She denies any worsening shortness of breath, cough or congestion. Urine culture was positive for Klebsiella pneumoniae and E coli. Blood cultures had revealed no growth. White count 12.8. Hemoglobin 11.6. Sodium 148. Potassium 3.9. Creatinine 2.20. She has D5.45 running at 100 ML's per hour. She is currently on ceftriaxone and Flagyl. PPN and lipids have been ordered. The patient was having issues with atrial fibrillation preoperatively and was initially on a heparin drip. The plan from cardiology is to initiate Eliquis once cleared surgically. On today's evaluation of 02/14/2019 I was asked even with this patient and the patient was found to be more lethargic and short of breath. I the patient did she is relatively comfortable on oxygen at 4 L. Nevertheless, she states that she wants to and she is unable to take this ongoing treatment any further. In terms of her cardiac condition, she is in atrial fibrillation with rapid ventricular response and a current heart rate is around 120-140. She has a Murphy catheter urine output is in order of 30 mL an hour. She had a chest x-ray that showed increased opacification of the lung bases. Ultrasound of the chest was done that showed small pockets and based on the ultrasound these markers were not and minimal 4 thoracentesis. She is on Diprivan running at the rate of 75 mL an hour. She is also on IV fluids running at 75 mL an hour of normal saline. The patient has a positive fluid balance of 1.1 L. She has a creatinin e of 2.4 with a mean of 34. ABCDs not done this morning. She has a positive output and her colostomy bag. The surgical wound site is dry clean and intact. She is afebrile for now. on 02/16/2016, the patient is transferred to the intensive care unit. The patient's oxygen requirements went up yesterday and she is currently on15 L of oxygen by nasal cannula. I opted to bring her down to the ICU. The ultrasound of the chest was not conclusive in terms of fluid and based on that I ordered a CAT scan of the chest that was done without contrast and the CAT scan showed worsening atelectatic changes in lung bases, pneumonia cannot be completely excluded. The pleural effusions were very tiny and there were not and the blood for thoracentesis. Based on that, no intervention was done. Currently she is awake and alert. She is on a combination of IV Rocephin and Flagyl.er white cell count came up to 18. Her creatinine is up to 2.1. Creatinine is stable for now. The lactic acid level was low at 1. She is awake. She is alert. The colostomy is functioning and she has adequate output at this point in time.The patient still on TPN and were going to initiate someclear liquid diet today. Reevaluated today on 02/16/2019, patient remains in the ICU, O2 saturation is marginal, still requiring a high flow nasal cannula at 15 L/m, chest x-ray shows significant airspace disease and atelectasis with consolidation at the bases bilaterally right more so than left, hence I recommended that we use intermittently BiPAP with IPAP of 12 and EPAP of 4. Continues to have leukocytosis with WBC count of 14.5, hemoglobin is 10.1 lites are normal BUN is 41 creatinine 2.01. Close to her baseline since admission. Chest x-ray is quite concerning to me, and CT of the chest was also reviewed, patient has significant bibasilar consolidation and air bronchograms noted in both lungs bilaterally more so in the right lower lobe. On 02/17/2019 patient seen in follow-up in the intensive care unit, she is off BiPAP support currently, she is on 15 L, and her pulse ox is 92-94%, either tachycardic on a monitor, hemodynamically patient is stable, she states she feels short of breath, she has a congested cough, at times she is able to produce small amount of yellowish sputum, lung sounds are positive for rhonchi, and some wheezing, urine culture was positive for Klebsiella pneumonia and E. c rema, blood culture has shown no growth, patient's antibiotics have been simplified and currently patient is on Zosyn. White count is trending down, it is 13.8 on today's labs, hemoglobin is 10.2, sodium was 135, dorsiflexors were unremarkable, B1 is 41 creatinine is 1.94, profile is slightly improved, incentive spirometry effort is poor, and patient is only able to achieve 500 on the incentive spirometer today. Patient continues to be nothing by mouth, she continues on TPN, she was started on promotility agent, in the form of Reglan. Was no output from her ostomy overnight. Surgery is following. On 02/23/2019 patient was seen in follow-up in the intensive care unit. This is postoperative day #11, status post exploratory laparotomy, and extensive lysis of adhesions, sigmoid colectomy and colostomy for acute bowel obstruction. She is awake and alert, does not appear to be in any acute distress, still requiring high flow oxygen, to 15 L currently, her pulse ox is 97%, we will try to wean it down, she's been afebrile, she is however in A. fib RVR with a rate of 120-140, currently on oral metoprolol for rate control, she is on Lopressor 50 mg 3 times daily, is on IV antibiotics, no form of Zosyn, urine culture showed Klebsiella pneumonia and E. coli, susceptible to Zosyn. Hemodynamically she is stable, there have been no fevers, his labs have been reviewed, showing white blood cell count of 16.2, hemoglobin of 8.7, platelet count of 721, sodium is 133, potassium is 5.0, CO2 is 21, BUN is 56, creatinine is 2.17. Today's chest x-ray has been reviewed during patchy bibasilar opacities , low lung volumes, persistent trace pleural effusions, and atelectasis. Mid abdominal incision clean dry and intact, maggy are intact, left abdomen colostomy is with liquid stool, bowel sounds are present. Patient remains on TPN for supplementation of nutrition, and patient is also on the chopped dysphagia 3 diet with 1500 mL fluid restriction. On 02/24/2019 patient seen in follow-up in the intensive care unit, she is resting comfortably in bed, this is postop day 12 status post exploratory laparotomy, and extensive lysis of adhesions, sigmoid colectomy and colostomy for acute bowel obstruction. Yesterday patient had a CT of abdomen and pelvis which revealed a large discrete fluid collection in the pelvis between the rectum and the urinary bladder that could be related to an abscess. Interventional radiology has been consulted for possible drainage of this abscess, however patient has been on Eliquis, and IR will not be able to proceed with the procedure for about 48 hours. Patient denies abdominal discomfort, NG tube has been inserted, and her about 300-400 mL of brownish colored output. Denies any worsening dyspnea, she needs a lot of encouragement to work with the incentive spirometer, and she is only achieving 250-500 mL on it today. Remains in A. fib but today's rate is better controlled, oral diltiazem has been added in addition to metoprolol. Hemodynamically stable. Patient is Zosyn for empiric antibiotic coverage, she's been afebrile, today's labs have been reviewed, showing white blood cell count of 14.0, hemoglobin of 7.7, serum sodium is 132, the rest of the electrolytes were within normal limits, BUN is 63 and creatinine is 2.4, chest x-ray today shows congestive heart failure with pleural effusions. On 02/26/2019 patient is seen in follow-up in the intensive care unit, she is awake and alert, but only oriented to person, confused, but appears to be in no acute distress, FiO2 is down to 6 L per high flow nasal cannula a pulse ox of 90, denies any respiratory distress, lung sounds are clear, diminished at the bases, remains nothing by mouth, abdomen is tender to palpation, but no acute distress, NGT has been discontinued. Patient has positive bowel sounds. Heparin infusion is on hold, the possibility of a cutaneous drainage of intra- abdominal abscess. Based chest x-ray has been reviewed and showing a right PICC line in the right jugular vein, we will reconsult interventional radiology for repositioning of the PICC line, and trace pleural effusions and bibasilar opacities that may represent atelectasis or pneumonia. Antibiotic coverage in the form of Zosyn, patient has been afebrile. Colostomy is functioning, making liquid brown stool. On 02/27/2019 patient is seen in follow-up in the intensive care unit, she is pleasantly confused, she has a safety companion at the bedside to prevent her from removing her indwelling catheters. FiO2 down to 4 L and her pulse ox is 92-93%, hemodynamically patient is stable, low-grade fever this morning, no evidence of any distress, denies any abdominal pain, her colostomy is functioning, putting out liquid brown stool, yesterday patient had a percutaneous drain put in for drainage of intra-abdominal abscess, there has been 150 mL of serosanguineous drainage from the tube in the last 24 hours. Hemodynamically she remains stable, point normal saline infusing at a rate of 50 ML per hour, TPN is at 60, yesterday we inserted a Dobbhoff feeding tube for supplementation of her nutrition, patient's appetite remains very poor, patient is practically refusing all meals. Patient will be reinitiated on her oral intake regulation by cardiology. Patient had a low-grade fever with a T-max 100.3F yesterday. Zosyn for antibiotic coverage continues, abscess drainage was sent for culture and is pending at this time. ID service is following. Today's chest x-ray has been reviewed showing prominent lower lung atelectasis and/or consolidation. And continued elevation of right hemidiaphragm. On 03/02/2019 patient seen in follow-up in intensive care unit, she is in no acute distress, pleasant confused, today is postoperative day 18, status post exposure laparotomy, and extensive lysis of adhesions, sigmoid colectomy and colostomy for acute bowel obstruction, patient subsequently also had a percutaneous drain inserted for intra-abdominal abscess, no further cultures are negative, urine culture showed Klebsiella pneumonia and E. coli for which the pa oscar remains on Zosyn, did have a low-grade fevers last night, he service is following, no complaints of abdominal pain, abdomen slightly distended and tympanic, per surgery abdominal flat plate x-ray is being obtained, colostomy is producing liquid brown stool, patient is tolerating tube feedings, appetite remains poor, and patient is on full liquid diet, no signs of respiratory distress, lung sounds are clear diminished at bases, patient does have an effective cough. On 03/03/2019 she is seen in follow-up in the intensive care unit. Patient is awake and alert to person, disoriented to place and time. Patient is complaining of abdominal discomfort today, and this morning apparently she complained of some mild nausea, but has not had any vomiting. Her abdomen seems to be slightly softer on today's exam, are positive bowel sounds 4, low-grade fevers today, patient remains in A. fib, with a rate of 100 BPM, she is on oral anticoagulation in the form of Eliquis. 0.9 normal saline at a rate of 50 ML per hour, antibiotic coverage is in the form of Zosyn and Eraxis. Rate control medications are with oral Cardizem, oral amiodarone and oral metoprolol. Denies any difficulty breathing, pulse Ox 90-92% on 2 L of oxygen. Lung sounds are clear. Percutaneous drain on left side is making minimal amount of serosanguineous output, and the drainage cultures are negative thus far. On 03/04/2019 patient is seen in follow-up in the intensive care unit, she remains confused, but not agitated, she does periodically remove her oxygen, on the Dobbhoff tube was not draining inserted, although the oral intake remains extremely poor, patient continues on oral supplements. Chronic appears to be stable, does not appear to be in any acute distress, she states her abdominal tenderness has improved, abdomen is soft, bowel sounds are present, colostomy is putting out liquid brown output, minimal output from the left percutaneous drain was inserted into the intra-abdominal abscess. Cultures remain negative thus far, patient remains on empiric antibiotics in the form of Zosyn, she has been afebrile, patient is unable to the incentive spirometer, but no cough, no congestion, lung sounds are clear, diminished at the bases, patient is on 2 L of oxygen, and her oxygen is around 92%, patient developed slight hematuria, Eliquis has been put on hold for PEG tube placement is scheduled for Saturday, we spoke to general surgery and the plan is to remove the percutaneous drain when the PEG tube is going to be inserted, clinically remains stable, will continue with current medical treatment. Objective - Vital Signs Vital signs: Vital Signs Temp 98.0 F 03/04/19 04:00 Pulse 57 L 03/04/19 11:02 Resp 25 H 03/04/19 07:00 BP 160/79 03/04/19 07:00 Pulse Ox 93 L 03/04/19 07:00 Intake & Output 03/03/19 03/04/19 03/04/19 18:59 06:59 18:59 Intake Total 1480 650 50 Output Total 1530 1015 50 Balance -50 -365 0 Weight 70.6 kg 70.6 kg Intake: IV 650 550 50 Sodium Chloride 0.9% 1, 650 550 50 000 ml @ 50 mls/hr IV . Q20H [facility] Rx#:[id number] Intake, IV Titration 200 100 Amount Anidulafungin 100 mg In 100 Sodium Chloride 0.9% 100 ml @ 84 mls/hr IVPB DAILY [facility] Rx#:[id number] Piperacillin-Tazobactam 3 100 100 .375 gm In Sodium Chloride 0.9% 100 ml @ 25 mls/hr IVPB Q8HR [facility] Rx# :[id number] Oral 630 Output: Drainage 25 Left Buttock 25 Urine 1130 790 50 Stool 400 200 Other: Voiding Method Indwelling Catheter Indwelling Catheter - Exam GENERAL EXAM: Alert, pleasant, 83-year-old white female, on 2 L per high flow nasal cannula, and her pulse ox is 91%, comfortable in no apparent distress. HEAD: Normocephalic/atraumatic. EYES: Normal reaction of pupils, equal size. Conjunctiva pink, sclera white. NOSE: Clear with pink turbinates. THROAT: No erythema or exudates. NECK: No masses, no JVD, no thyroid enlargement, no adenopathy. CHEST: No chest wall deformity. Symmetrical expansion. LUNGS: Equal air entry with no rhonchi, no wheezing, diminished breath sounds CVS: Irregular rate and rhythm, normal S1 and S2, no gallops, no murmurs, no rubs ABDOMEN: Soft, nontender. No hepatosplenomegaly, normal bowel sounds, no guarding or rigidity. Midline incision with maggy intact, colostomy with li quid brown output. Percutaneous drain on the left side with minimal drainage of serosanguineous output EXTREMITIES: No clubbing, no edema, no cyanosis, 2+ pulses and upper and lower extremities. MUSCULOSKELETAL: Muscle strength and tone normal. SPINE: No scoliosis or deformity SKIN: No rashes CENTRAL NERVOUS SYSTEM: Alert and oriented -1, presently confused. No focal deficits, tone is normal in all 4 extremities. PSYCHIATRIC: Alert and oriented -1. Appropriate affect. Intact judgment and insight. - Labs CBC & Chem 7: 03/04/19 04:25 03/04/19 04:25 Labs: Abnormal Lab Results - Last 24 Hours (Table) 03/03/19 03/03/19 03/03/19 Range/Units 11:58 16:55 20:25 RBC (3.80-5.40) m/uL Hgb (11.4-16.0) gm/dL Hct (34.0-46.0) % Chloride (98-107) mmol/L BUN (7-17) mg/dL Creatinine (0.52-1.04) mg/dL POC Glucose (mg/dL) 136 H 102 H 109 H (75-99) mg/dL Total Protein (6.3-8.2) g/dL Albumin (3.5-5.0) g/dL 03/04/19 03/04/19 03/04/19 Range/Units 04:25 04:25 07:04 RBC 2.37 L (3.80-5.40) m/uL Hgb 6.9 L* (11.4-16.0) gm/dL Hct 21.5 L (34.0-46.0) % Chloride 114 H (98-107) mmol/L BUN 39 H (7-17) mg/dL Creatinine 1.71 H (0.52-1.04) mg/dL POC Glucose (mg/dL) 101 H (75-99) mg/dL Total Protein 5.4 L (6.3-8.2) g/dL Albumin 2.4 L (3.5-5.0) g/dL Assessment and Plan Plan: Assessment: #1. Acute bowel obstruction, status post exploratory laparotomy, extensive lysis of adhesions, sigmoid colectomy, and colostomy, postoperative day 20 #2. Large fluid collection in the pelvis could be related to an abscess, interventional radiology has been consulted for drainage, patient has a percutaneous drain for drainage of abscess, cultures are pending, negative thus far. Drainage output has diminished and over the last 24 hours is down to 25 mL on 03/03/2019 #3. Acute urinary tract infection with cultures positive for Klebsiella pneumonia and E. coli #4. Bilateral hydronephrosis seen on the CT of the abdomen and pelvis #5. Acute hypoxic respiratory failure suspect aspiration pneumonia, and postoperative atelectasis #6. Acute urinary tract infection secondary to Klebsiella pneumonia and E. coli, susceptible to Zosyn which the patient is currently on #7. A. fib with RVR, on oral metoprolol for rate control, and Eliquis #8. Chronic atrial fibrillation #9. Benign essential hypertension #10. History of hyperlipidemia #11. Acute on chronic renal failure patient has chronic kidney disease stage III at baseline #12. Confusion, related to [place] Encephalopathy Plan: Patient continues on Zosyn, clinically stable, no shortness of breath, no cough, abdomen is less tender, soft, colostomy is functioning, repeat CT of abdomen and pelvis has been reviewed showing near complete resolution of the intra-abdominal abscess, and the plan is to discontinue the drain when the PEG tube is inserted on Saturday. Maintain aspiration precautions, supervision and encouragement with meals, patient remains on oral supplements, however her intake remains very poor. Patient has converted to sinus rhythm, her anticoagulation has been p laced on hold for surgery on Saturday. Obtain safety precautions, hemoglobin is down to 6.9 but no obvious signs of bleeding. I performed a history & physical examination of the patient and discussed their management with my nurse practitioner, Suzanne Kaur. I reviewed the nurse practitioner's note and agree with the documented findings and plan of care. Lung sounds are positive for diminished breath sounds with minimal rhonchi. The findings and the impression was discussed with the patient. I attest to the documentation by the nurse practitioner. Time with Patient: Less than 30
[2019-03-04 11:48] LABS: Glucose,Whole Blood 146 mg/dL (75-99)
[2019-03-04] MEDS: DARBEPOETIN ALFA 40 MCG/0.4 ML SYRINGE SQ SCH (11:59)
[2019-03-04 12:03] LABS: Glucose,Whole Blood 121 mg/dL (75-99)
--- NOTE | 2019-03-04 15:18 | P.PN ---
Subjective Progress Note Date: 03/04/19 (Hemoglobin 6.9 hematocrit 21.5) Principal diagnosis: mechanical obstruction with small bowel and distended abdomen with history of adhesions in the past. The progress note dictated on 02/08/2090 by Patient with history notable bowel movement or stool or passing flatus for more than one week duration x-ray indicating small bowel mechanical obstruction. And patient currently nothing by mouth with NG tube which she did some relief. Her vital sign temperature 90.8 orally F Fahrenheit and her pulse rate 80 and she developed on the surgical floor atrial fibrillation with a rate of 1:30 P 8/m patient transferred to classroom monitor floor with cardiology consultation which she was started on cardiac exam drip. And seen by Dr. ISATU Zamudio. Respiratory rate 16 and her blood pressure is hypertensive in spite of trial of medication 187/84. She is on nasal cannula 2 L of oxygen with a pulse ox 95%. current laboratories indicating that her WBC 5.3 with a hemoglobin 11.6, her platelet count 414.next is her PTT 32.6with the normal range 30.6. Minimally elevated. Chemistry indicating sodium 144 potassium 3.8 chloride 108 carbon dioxid 28, anion gap 8, BUN 20, creatinine 1.94, EGFR 23 with chronic kidney disease stage IV. Glucose 131AST and LT normal alk phos 137 total protein 6.1 and albumin 3.4 thyroid function is normal and the free T3 some little bit lower than normal that is because of her illness Nephrology evaluation and assessment indicating patient with the UTI Klebsiella pneumonia and E. coli treated according to the culture with the assessment acute kidney injury possibly prerenal improved with hydration. Chronic kidney disease stage IV with the creatinine near 2 secondary to hydronephrosis and left renal atrophy. #3 abdominal pain with questionable diverticulitis and chronic obstruction and NG tube for decompression. Neurogenic bladder and uses a catheterization 4-5 a day metabolic acidosis and she is on bicarb hypertension is controlled and UTI. Physical exam patient status post barium enema and patient the result reviewed by Dr. Sahu and his impression will be discussed with the family. HEENT was negative neck was supple and chest was clear and the heart was currently controlled atrophic And abdomen is tender distended and with the small bowel obstruction extremities no edema. Assessment small bowel obstruction mechanical and high fall to the patient should have surgical intervention. However this is a surgical case and up to the family and the surgeon. Progress note date of service 03/04/2019 Dictation by . Patient seen and evaluated [id number] and the with the clinical improvement progress. She is feeling also better. Lab: White count 8.2 improvement significant her hemoglobin dropped to 6.9 and a hematocrit 21.5. With the underlying hypochromasia Chemistry: Sodium 144, potassium 3.9, chloride 114, carbon dioxide 22, anion gap 8, creatinine 1.71, BUN 39, the EGFR for non- 27 with the underlying chronic kidney disease stage IV and she had left renal atrophy. She had still Murphy catheter with hematuria. Her hemoglobin drop. POC glucose 109-121 currently improved after the TPN has been removed and discontinued. Her calcium is 8.5, bilirubin 0.5, AST 25, ALC 13, alkaline phosphatase 115 115. Her total protein 5.4 and albumin 2.4, decreased oral intake with the protein calorie deficiency moderate secondary to the surgical intervention with obstruction of the large bowel as well as small bowel ileus and pelvic abscess which is cleared by the CT can of the abdomen. Today in ICU [id number] examination: Temperature 90.8 F oral, heart rate 64 sinus regular with a history of unde rlying atrial fibrillation converted and stable at this time with the respiratory rate 19 and blood pressure 136/78 and her pulse ox 94% on 2 L nasal cannula. Current antibiotic Zosyn. Will be continued as discussed with Dr. Tsai until bacterial placement will be done in tomorrow for supporting for her decrease intake and improving on the albumin and total protein. Patient on inhalation therapy Patient was started for low hemoglobin on Aranesp 40 g every 7 days subcutaneously for the improvement of her anemia currently she is below 7 and will be debating if patient need 1 units of packed RBCs for general improvement especially with the healing and oxygenation. Patient on Eraxis antifungal and currently treated with a found that urine has 100 colony of Selin albicans. Computed tomography scan of the abdomen done on and as well as follow-up on the abscess formation, indicating that small bilateral pleural effusion some compressing atelectasis within the dependent portion of the lung basis. Liver and spleen appeared to be unremarkable without masses or cysts. Or hydronephrosis. Gallbladder is unremarkable, adrenal gland is normal, left kidney is atrophic, right kidney as assessed in the posterior inferior measurement 2.7 cm. She had a hypodensity within the midportion of the pancreas body measuring 1.9 cm. of the bowel without contrast appears to be normal and some contrast within the distal of the bowel. Urinary bladder decompressed with a Murphy catheter small amount failure is present mainly related to the catheter placement drainage of the catheter in the lower part of the pelvis and there is some residual abscess anterior to the rectum largely resolved but still remained present to the extent colostomy in the left lower quadrant with nonspecific bowel loop are present. Impression: Pelvic abscess in the pre-sacral space largely resolved. Small amount of residual may remain present with a drainage catheter present. 1.9 cm hypodensity within the pancreatic body of the pancreas. Pancreatic duct is prominent extending toward the the ampulla at the gallbladder. The report is taking that could not exclude pancreatic neoplasm. On exam: Head was normocephalic and atraumatic, pupil was equal reactive, with a history of bilateral cataract implant, Oropharynx normal tongue no/. And she is able to swallow however she is not heavy E her she will very fast and appetite is decreased. Neck was supple no JVD no thyromegaly no lymphadenopathy trachea midline. Chest was she had a right hemidiaphragm elevation however she brazing normal and normal breath sounds and no evidence of rhonchi's rales. Heart is currently regular sinus rhythm with a range of 60 bpm. And compensated no evidence of congestive heart failure. Abdomen: Mildly distended with the gradual improvement, left colostomy has been working. And no significant tenderness. Extremities no edema. Pulses and she is on thrombotic stocking. Assessment: #1 significant improvement. On her clinical status. #2 underlying of protein calorie deficiency moderate #3 anemia with a hemoglobin 6.9 and she started by nephrology with Brandon and we will be discussing if she need one units of packed RBCs. #4 she is on Marinol twice a day for appetite. She is on fentanyl patch for pain and as the pain improving probably cutting down to 12.5 patch and until we discontinue the Duragesic patch. 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 Which is very low dose. Plan: Patient planned for PEG tube placement by Dr. Sahu will plan for PEG tube feeding and the on Saturday proceeded with the was holding the anticoagulation to avoid bleeding. Subha steroid and topical 4 g application on the right hip anteriorly and posteriorly twice a day to decrease the severity of the right hip pain with the advanced [id number] right hip. The fentanyl patch decreased to 12 g every 70 2R. And will monitor the pain as well future plan for rehab and probably patient will be in the correction for slow rehab dictation process. Objective - Vital Signs Vital signs: Vital Signs Temp 98 F 03/04/19 12:00 Pulse 60 03/04/19 13:00 Resp 19 03/04/19 13:00 BP 136/78 03/04/19 13:00 Pulse Ox 94 L 03/04/19 13:00 Intake & Output 03/03/19 03/04/19 03/04/19 18:59 06:59 18:59 Intake Total 1480 650 518 Output Total 1530 1015 425 Balance -50 -365 93 Weight 70.6 kg 70.6 kg Intake: IV 650 550 518 0.9 Normal saline 100 Anidulafungin 100 mg In 168 Sodium Chloride 0.9% 100 ml @ 84 mls/hr IVPB DAILY [facility] Rx#:[id number] Piperacillin-Tazobactam 3 100 .375 gm In Sodium Chloride 0.9% 100 ml @ 25 mls/hr IVPB Q8HR [facility] Rx# :[id number] Sodium Chloride 0.9% 1, 650 550 150 000 ml @ 50 mls/hr IV . Q20H [facility] Rx#:[id number] Intake, IV Titration 200 100 Amount Anidulafungin 100 mg In 100 Sodium Chloride 0.9% 100 ml @ 84 mls/hr IVPB DAILY [facility] Rx#:[id number] Piperacillin-Tazobactam 3 100 100 .375 gm In Sodium Chloride 0.9% 100 ml @ 25 mls/hr IVPB Q8HR [facility] Rx# :[id number] Oral 630 Output: Drainage 25 Left Buttock 25 Urine 1130 790 425 Stool 400 200 Other: Voiding Method Indwelling Catheter Indwelling Catheter - Labs CBC & Chem 7: 03/04/19 04:25 03/04/19 04:25 Labs: Abnormal Lab Results - Last 24 Hours (Table) 03/03/19 03/03/19 03/04/19 Range/Units 16:55 20:25 04:25 RBC 2.37 L (3.80-5.40) m/uL Hgb 6.9 L* (11.4-16.0) gm/dL Hct 21.5 L (34.0-46.0) % Chloride (98-107) mmol/L BUN (7-17) mg/dL Creatinine (0.52-1.04) mg/dL POC Glucose (mg/dL) 102 H 109 H (75-99) mg/dL Total Protein (6.3-8.2) g/dL Albumin (3.5-5.0) g/dL 03/04/19 03/04/19 03/04/19 Range/Units 04:25 07:04 11:46 RBC (3.80-5.40) m/uL Hgb (11.4-16.0) gm/dL Hct (34.0-46.0) % Chloride 114 H (98-107) mmol/L BUN 39 H (7-17) mg/dL Creatinine 1.71 H (0.52-1.04) mg/dL POC Glucose (mg/dL) 101 H 146 H (75-99) mg/dL Total Protein 5.4 L (6.3-8.2) g/dL Albumin 2.4 L (3.5-5.0) g/dL 03/04/19 Range/Units 12:02 RBC (3.80-5.40) m/uL Hgb (11.4-16.0) gm/dL Hct (34.0-46.0) % Chloride (98-107) mmol/L BUN (7-17) mg/dL Creatinine (0.52-1.04) mg/dL POC Glucose (mg/dL) 121 H (75-99) mg/dL Total Protein (6.3-8.2) g/dL Albumin (3.5-5.0) g/dL
[2019-03-04] MEDS: LACTATED RINGERS 1,000 ML IV SCH (16:17)
[2019-03-04 16:23] LABS: Ferritin 167.6 ng/mL (10.0-291.0)
[2019-03-04 16:43] LABS: % Iron Saturation 12.12 (12.00-45.00)
--- NOTE | 2019-03-04 16:46 | PN ---
PROGRESS NOTE DATE OF SERVICE: 03/04/2019 REASON FOR FOLLOWUP: Abdominal sepsis and UTI. INTERVAL HISTORY: The patient is currently afebrile. The patient is breathing comfortably. She is more awake and alert. NG has been discontinued. She has been started on diet, which she is tolerating. No chest pain. Occasional cough. No abdominal pain. PHYSICAL EXAMINATION: Blood pressure 136/78 with a pulse of 60, temperature of 98. She is 94% on 2 L nasal cannula. General description is an elderly female lying in bed in no distress. RESPIRATORY SYSTEM: Unlabored breathing. Clear to auscultation anteriorly. HEART: S1, S2. Regular rate and rhythm. ABDOMEN: Soft. No tenderness. LABS: Hemoglobin is 6.9, white count 8.2. BUN of 39, creatinine 1.71. DIAGNOSTIC IMPRESSION AND PLAN: 1. Patient with sigmoid diverticulitis requiring laparotomy and diverting colostomy, subsequently abdominal fluid collection with concern for abscess, status post CT- guided drainage. Those cultures have been negative. The patient is currently on Zosyn. Transition to a short course of oral antibiotic once her oral intake is improved. 2. Urinary tract infection. The patient is on amiodarone. Diflucan cannot be used. Urine was Selin albicans. Patient is currently covered with Eraxis. Hopefully will finish therapy in the next day or two. MMODL / IJN: [id number] /
[2019-03-04 17:00] LABS: Glucose,Whole Blood 110 mg/dL (75-99)
[2019-03-04 20:09] LABS: Glucose,Whole Blood 101 mg/dL (75-99)
[2019-03-04] MEDS: ATORVASTATIN 10 MG TAB PO SCH (20:38)
[2019-03-04] MEDS: DULoxetine HCL 60 MG CAPSULE.DR PO SCH (20:40)
[2019-03-04] MEDS: DICLOFENAC SODIUM GEL 100 GM TUBE TOPICAL SCH (20:40)
[2019-03-05] MEDS: PIPERACILLIN-TAZOBACTAM 3.375 GM in SODIUM CHLORIDE 0.9% 100 ML IVPB SCH ×3 (00:33→21:15)
[2019-03-05] MEDS: HYDROcodone/APAP 5-325MG 1 EACH TAB PO PRN ×2 (01:05→16:30)
[2019-03-05] MEDS: hydrALAZINE HCL 20 MG/ML 1 ML VIAL IVP PRN ×2 (04:39→22:38)
[2019-03-05 04:47] LABS: HCT 20.4 % (34.0-46.0); Hypochromasia Moderate; MCH 28.3 pg (25.0-35.0); MCHC 31.3 g/dL (31.0-37.0); MCV 90.3 fL (80.0-100.0); Mean Platelet Volume 8.5; Platelet Count 379 k/uL (150-450); Poikilocytosis Slight; RBC 2.25 m/uL (3.80-5.40); RDW 15.5 % (11.5-15.5); WBC 7.5 k/uL (3.8-10.6)
[2019-03-05 04:54] LABS: HGB 6.4 gm/dL (11.4-16.0)
[2019-03-05 05:01] LABS: Albumin 2.7 g/dL (3.5-5.0); Calcium 8.6 mg/dL (8.4-10.2); Potassium 3.7 mmol/L (3.5-5.1); Total Bilirubin 0.6 mg/dL (0.2-1.3)
[2019-03-05] MEDS: DRONABINOL 2.5 MG CAP PO SCH ×2 (06:56→16:30)
[2019-03-05 07:02] LABS: Glucose,Whole Blood 101 mg/dL (75-99)
[2019-03-05] MEDS: INSULIN ASPART (NovoLOG) 100 UNIT/ML VIAL SQ SCH ×4 (07:36→21:03)
[2019-03-05] MEDS: IPRATROPIUM-ALBUTEROL 3 ML NEB INHALATION SCH ×4 (07:56→19:54)
[2019-03-05] MEDS: BUDESONIDE 0.5 MG/2 ML NEBU INHALATION SCH ×2 (07:56→19:54)
[2019-03-05] MEDS: ANIDULAFUNGIN 100 MG in SODIUM CHLORIDE 0.9% 100 ML IVPB SCH (08:37)
[2019-03-05] MEDS: LACTATED RINGERS 1,000 ML IV SCH (08:37)
[2019-03-05] MEDS: DILTIAZEM ORAL 60 MG TAB PO SCH ×3 (08:37→21:16)
[2019-03-05] MEDS: AMIODARONE 200 MG TAB PO SCH ×2 (08:38→21:13)
[2019-03-05] MEDS: METOPROLOL TARTRATE 50 MG TAB PO SCH ×3 (08:38→21:15)
[2019-03-05] MEDS: NYSTATIN 100,000 UNIT/ML SUSP 500,000 UNIT/5 ML CUP PO SCH ×4 (08:38→21:17)
[2019-03-05] MEDS: DICLOFENAC SODIUM GEL 100 GM TUBE TOPICAL SCH ×2 (08:39→21:14)
--- NOTE | 2019-03-05 09:04 | P.PN ---
Subjective Patient is seen in follow-up for acute kidney injury on chronic kidney disease. Renal function is fairly ftable. She is nonoliguric. Underwent exploratory laparotomy with sigmoid colectomy and end colostomy this admission. She pulled out dobhoff. Oral intake is just fair. Denies chest pain or shortness of breath. Scheduled for PEG tube placement tomorrow. Noted to have hematuria. Hemoglobin 6.4 today. Vital signs are stable. General: The patient appeared well nourished and normally developed. HEENT: Head exam is unremarkable. Neck is without jugular venous distension. LUNGS: Lungs are clear to auscultation and percussion. Breath sounds decreased. HEART: Rate and Rhythm are regular. First and second heart sounds normal. No murmurs, rubs or gallops. ABDOMEN: Bowel sounds present. Soft. EXTREMITITES: No clubbing, cyanosis, or edema. Objective - Vital Signs Vital signs: Vital Signs Temp 98.8 F 03/05/19 04:00 Pulse 74 03/05/19 08:06 Resp 23 03/05/19 07:49 BP 163/76 03/05/19 07:00 Pulse Ox 95 03/05/19 07:00 Intake & Output 03/04/19 03/05/19 03/05/19 18:59 06:59 18:59 Intake Total 663 240 20 Output Total 905 1090 500 Balance -242 850 -480 Weight 70.6 kg 68.6 kg Intake: IV 663 240 20 0.9 Normal saline 220 240 Anidulafungin 100 mg In 168 Sodium Chloride 0.9% 100 ml @ 84 mls/hr IVPB DAILY [facility] Rx#:[id number] Piperacillin-Tazobactam 3 125 .375 gm In Sodium Chloride 0.9% 100 ml @ 25 mls/hr IVPB Q8HR [facility] Rx# :[id number] Sodium Chloride 0.9% 1, 150 20 000 ml @ 20 mls/hr IV . Q24H [facility] Rx#:[id number] Output: Urine 905 1090 200 Stool 300 Other: Voiding Method Indwelling Catheter Indwelling Catheter Indwelling Catheter # Voids 1 - Labs CBC & Chem 7: 03/05/19 04:36 03/05/19 04:36 Labs: Abnormal Lab Results - Last 24 Hours (Table) 03/04/19 03/04/19 03/04/19 Range/Units 04:25 11:46 12:02 RBC (3.80-5.40) m/uL Hgb (11.4-16.0) gm/dL Hct (34.0-46.0) % Chloride (98-107) mmol/L BUN (7-17) mg/dL Creatinine (0.52-1.04) mg/dL POC Glucose (mg/dL) 146 H 121 H (75-99) mg/dL Iron 24 L (50-170) ug/dL TIBC 198 L (228-460) ug/dL Total Protein (6.3-8.2) g/dL Albumin (3.5-5.0) g/dL Crossmatch 03/04/19 03/04/19 03/05/19 Range/Units 16:59 20:08 04:36 RBC 2.25 L (3.80-5.40) m/uL Hgb 6.4 L* (11.4-16.0) gm/dL Hct 20.4 L (34.0-46.0) % Chloride (98-107) mmol/L BUN (7-17) mg/dL Creatinine (0.52-1.04) mg/dL POC Glucose (mg/dL) 110 H 101 H (75-99) mg/dL Iron (50-170) ug/dL TIBC (228-460) ug/dL Total Protein (6.3-8.2) g/dL Albumin (3.5-5.0) g/dL Crossmatch 03/05/19 03/05/19 03/05/19 Range/Units 04:36 07:00 07:25 RBC (3.80-5.40) m/uL Hgb (11.4-16.0) gm/dL Hct (34.0-46.0) % Chloride 110 H (98-107) mmol/L BUN 32 H (7-17) mg/dL Creatinine 1.87 H (0.52-1.04) mg/dL POC Glucose (mg/dL) 101 H (75-99) mg/dL Iron (50-170) ug/dL TIBC (228-460) ug/dL Total Protein 6.0 L (6.3-8.2) g/dL Albumin 2.7 L (3.5-5.0) g/dL Crossmatch See Detail Assessment and Plan Plan: Assessment: 1. Acute kidney injury secondary to ATN. Improving with IV hydration. Renal function fairly stable - creatinine 1.87 today. 2. Chronic kidney disease stage IV with baseline creatinine near 1.7-1.9 secondary to nephrosclerosis and left renal atrophy. 3. S/p exp lap with sigmoid colectomy and end colostomy 02/12/19. 4. Neurogenic bladder. Patient performs self catheterizations 4-5 times daily. Now has Murphy. 5. Metabolic acidosis secondary to acute kidney injury. Stable. 6. Hypertension with chronic kidney disease. 7. UTI with urine culture positive for Klebsiella and E. coli maintained on antibiotics. 8. Hyponatremia secondary to poor solute intake. Resolved. 9. A-fib maintained on Lopressor and Cardizem. 10. Acute blood loss anemia with hematuria. Anticoagulation held. Scheduled for blood transfusion today. Maintained on Aranesp. Iron deficiency noted as well. Plan: Maintain LR at 50 mL an hour. Encouraged oral intake. Avoid nephrotoxins. Continue to monitor renal function and urine output. IV iron 3 doses. First dose today. Scheduled for PEG tube placement tomorrow.
[2019-03-05] MEDS: SODIUM FERRIC GLUCONAT-SUCROSE 125 MG in SODIUM CHLORIDE 0.9% 100 ML IVPB SCH (09:44)
--- NOTE | 2019-03-05 10:55 | P.PN ---
Subjective Progress Note Date: 03/05/19 Principal diagnosis: Acute bowel obstruction status post laparotomy with extensive lysis of adhesions and sigmoid colectomy and end colostomy postoperative day 5 This is a pleasant 83-year-old female patient admitted back on 02/07/2019 with complaints of constipation and abdominal discomfort. She had not moved her bowels for several days prior. Abdominal x-rays did show evidence of constipation. Fleet enema and MiraLAX at home were unsuccessful. She was subsequently admitted for abdominal bloating and discomfort. She was found to have a colon obstruction and yesterday had undergone exposure laparotomy, extensive lysis of adhesions, sigmoid colectomy, end colostomy done by Dr. Miller. She remained hypoxic postoperatively and was placed on BiPAP with an FiO2 of 80%. We're consulted for the same. No chest x-ray was done. She is seen today on the selective care unit. She is currently awake and alert in no acute distress. She is having some ongoing abdominal discomfort. She has a midline incision with maggy intact and a colostomy with stool present. She is currently on 6 L high flow nasal cannula and maintaining O2 saturation in the mid 90s. She denies any worsening shortness of breath, cough or congestion. Urine culture was positive for Klebsiella pneumoniae and E coli. Blood cultures had revealed no growth. White count 12.8. Hemoglobin 11.6. Sodium 148. Potassium 3.9. Creatinine 2.20. She has D5.45 running at 100 ML's per hour. She is currently on ceftriaxone and Flagyl. PPN and lipids have been ordered. The patient was having issues with atrial fibrillation preoperatively and was initially on a heparin drip. The plan from cardiology is to initiate Eliquis once cleared surgically. On today's evaluation of 02/14/2019 I was asked even with this patient and the patient was found to be more lethargic and short of breath. I the patient did she is relatively comfortable on oxygen at 4 L. Nevertheless, she states that she wants to and she is unable to take this ongoing treatment any further. In terms of her cardiac condition, she is in atrial fibrillation with rapid ventricular response and a current heart rate is around 120-140. She has a Murphy catheter urine output is in order of 30 mL an hour. She had a chest x-ray that showed increased opacification of the lung bases. Ultrasound of the chest was done that showed small pockets and based on the ultrasound these markers were not and minimal 4 thoracentesis. She is on Diprivan running at the rate of 75 mL an hour. She is also on IV fluids running at 75 mL an hour of normal saline. The patient has a positive fluid balance of 1.1 L. She has a creatinin e of 2.4 with a mean of 34. ABCDs not done this morning. She has a positive output and her colostomy bag. The surgical wound site is dry clean and intact. She is afebrile for now. on 02/16/2016, the patient is transferred to the intensive care unit. The patient's oxygen requirements went up yesterday and she is currently on15 L of oxygen by nasal cannula. I opted to bring her down to the ICU. The ultrasound of the chest was not conclusive in terms of fluid and based on that I ordered a CAT scan of the chest that was done without contrast and the CAT scan showed worsening atelectatic changes in lung bases, pneumonia cannot be completely excluded. The pleural effusions were very tiny and there were not and the blood for thoracentesis. Based on that, no intervention was done. Currently she is awake and alert. She is on a combination of IV Rocephin and Flagyl.er white cell count came up to 18. Her creatinine is up to 2.1. Creatinine is stable for now. The lactic acid level was low at 1. She is awake. She is alert. The colostomy is functioning and she has adequate output at this point in time.The patient still on TPN and were going to initiate someclear liquid diet today. Reevaluated today on 02/16/2019, patient remains in the ICU, O2 saturation is marginal, still requiring a high flow nasal cannula at 15 L/m, chest x-ray shows significant airspace disease and atelectasis with consolidation at the bases bilaterally right more so than left, hence I recommended that we use intermittently BiPAP with IPAP of 12 and EPAP of 4. Continues to have leukocytosis with WBC count of 14.5, hemoglobin is 10.1 lites are normal BUN is 41 creatinine 2.01. Close to her baseline since admission. Chest x-ray is quite concerning to me, and CT of the chest was also reviewed, patient has significant bibasilar consolidation and air bronchograms noted in both lungs bilaterally more so in the right lower lobe. On 02/17/2019 patient seen in follow-up in the intensive care unit, she is off BiPAP support currently, she is on 15 L, and her pulse ox is 92-94%, either tachycardic on a monitor, hemodynamically patient is stable, she states she feels short of breath, she has a congested cough, at times she is able to produce small amount of yellowish sputum, lung sounds are positive for rhonchi, and some wheezing, urine culture was positive for Klebsiella pneumonia and E. c rema, blood culture has shown no growth, patient's antibiotics have been simplified and currently patient is on Zosyn. White count is trending down, it is 13.8 on today's labs, hemoglobin is 10.2, sodium was 135, dorsiflexors were unremarkable, B1 is 41 creatinine is 1.94, profile is slightly improved, incentive spirometry effort is poor, and patient is only able to achieve 500 on the incentive spirometer today. Patient continues to be nothing by mouth, she continues on TPN, she was started on promotility agent, in the form of Reglan. Was no output from her ostomy overnight. Surgery is following. On 02/23/2019 patient was seen in follow-up in the intensive care unit. This is postoperative day #11, status post exploratory laparotomy, and extensive lysis of adhesions, sigmoid colectomy and colostomy for acute bowel obstruction. She is awake and alert, does not appear to be in any acute distress, still requiring high flow oxygen, to 15 L currently, her pulse ox is 97%, we will try to wean it down, she's been afebrile, she is however in A. fib RVR with a rate of 120-140, currently on oral metoprolol for rate control, she is on Lopressor 50 mg 3 times daily, is on IV antibiotics, no form of Zosyn, urine culture showed Klebsiella pneumonia and E. coli, susceptible to Zosyn. Hemodynamically she is stable, there have been no fevers, his labs have been reviewed, showing white blood cell count of 16.2, hemoglobin of 8.7, platelet count of 721, sodium is 133, potassium is 5.0, CO2 is 21, BUN is 56, creatinine is 2.17. Today's chest x-ray has been reviewed during patchy bibasilar opacities , low lung volumes, persistent trace pleural effusions, and atelectasis. Mid abdominal incision clean dry and intact, maggy are intact, left abdomen colostomy is with liquid stool, bowel sounds are present. Patient remains on TPN for supplementation of nutrition, and patient is also on the chopped dysphagia 3 diet with 1500 mL fluid restriction. On 02/24/2019 patient seen in follow-up in the intensive care unit, she is resting comfortably in bed, this is postop day 12 status post exploratory laparotomy, and extensive lysis of adhesions, sigmoid colectomy and colostomy for acute bowel obstruction. Yesterday patient had a CT of abdomen and pelvis which revealed a large discrete fluid collection in the pelvis between the rectum and the urinary bladder that could be related to an abscess. Interventional radiology has been consulted for possible drainage of this abscess, however patient has been on Eliquis, and IR will not be able to proceed with the procedure for about 48 hours. Patient denies abdominal discomfort, NG tube has been inserted, and her about 300-400 mL of brownish colored output. Denies any worsening dyspnea, she needs a lot of encouragement to work with the incentive spirometer, and she is only achieving 250-500 mL on it today. Remains in A. fib but today's rate is better controlled, oral diltiazem has been added in addition to metoprolol. Hemodynamically stable. Patient is Zosyn for empiric antibiotic coverage, she's been afebrile, today's labs have been reviewed, showing white blood cell count of 14.0, hemoglobin of 7.7, serum sodium is 132, the rest of the electrolytes were within normal limits, BUN is 63 and creatinine is 2.4, chest x-ray today shows congestive heart failure with pleural effusions. On 02/26/2019 patient is seen in follow-up in the intensive care unit, she is awake and alert, but only oriented to person, confused, but appears to be in no acute distress, FiO2 is down to 6 L per high flow nasal cannula a pulse ox of 90, denies any respiratory distress, lung sounds are clear, diminished at the bases, remains nothing by mouth, abdomen is tender to palpation, but no acute distress, NGT has been discontinued. Patient has positive bowel sounds. Heparin infusion is on hold, the possibility of a cutaneous drainage of intra- abdominal abscess. Based chest x-ray has been reviewed and showing a right PICC line in the right jugular vein, we will reconsult interventional radiology for repositioning of the PICC line, and trace pleural effusions and bibasilar opacities that may represent atelectasis or pneumonia. Antibiotic coverage in the form of Zosyn, patient has been afebrile. Colostomy is functioning, making liquid brown stool. On 02/27/2019 patient is seen in follow-up in the intensive care unit, she is pleasantly confused, she has a environmental health safety manager at the bedside to prevent her from removing her indwelling catheters. FiO2 down to 4 L and her pulse ox is 92-93%, hemodynamically patient is stable, low-grade fever this morning, no evidence of any distress, denies any abdominal pain, her colostomy is functioning, putting out liquid brown stool, yesterday patient had a percutaneous drain put in for drainage of intra-abdominal abscess, there has been 150 mL of serosanguineous drainage from the tube in the last 24 hours. Hemodynamically she remains stable, point normal saline infusing at a rate of 50 ML per hour, TPN is at 60, yesterday we inserted a Dobbhoff feeding tube for supplementation of her nutrition, patient's appetite remains very poor, patient is practically refusing all meals. Patient will be reinitiated on her oral intake regulation by cardiology. Patient had a low-grade fever with a T-max 100.3F yesterday. Zosyn for antibiotic coverage continues, abscess drainage was sent for culture and is pending at this time. ID service is following. Today's chest x-ray has been reviewed showing prominent lower lung atelectasis and/or consolidation. And continued elevation of right hemidiaphragm. On 03/02/2019 patient seen in follow-up in intensive care unit, she is in no acute distress, pleasant confused, today is postoperative day 18, status post exposure laparotomy, and extensive lysis of adhesions, sigmoid colectomy and colostomy for acute bowel obstruction, patient subsequently also had a percutaneous drain inserted for intra-abdominal abscess, no further cultures are negative, urine culture showed Klebsiella pneumonia and E. coli for which the pa oscar remains on Zosyn, did have a low-grade fevers last night, he service is following, no complaints of abdominal pain, abdomen slightly distended and tympanic, per surgery abdominal flat plate x-ray is being obtained, colostomy is producing liquid brown stool, patient is tolerating tube feedings, appetite remains poor, and patient is on full liquid diet, no signs of respiratory distress, lung sounds are clear diminished at bases, patient does have an effective cough. On 03/03/2019 she is seen in follow-up in the intensive care unit. Patient is awake and alert to person, disoriented to place and time. Patient is complaining of abdominal discomfort today, and this morning apparently she complained of some mild nausea, but has not had any vomiting. Her abdomen seems to be slightly softer on today's exam, are positive bowel sounds 4, low-grade fevers today, patient remains in A. fib, with a rate of 100 BPM, she is on oral anticoagulation in the form of Eliquis. 0.9 normal saline at a rate of 50 ML per hour, antibiotic coverage is in the form of Zosyn and Eraxis. Rate control medications are with oral Cardizem, oral amiodarone and oral metoprolol. Denies any difficulty breathing, pulse Ox 90-92% on 2 L of oxygen. Lung sounds are clear. Percutaneous drain on left side is making minimal amount of serosanguineous output, and the drainage cultures are negative thus far. On 03/04/2019 patient is seen in follow-up in the intensive care unit, she remains confused, but not agitated, she does periodically remove her oxygen, on the Dobbhoff tube was not draining inserted, although the oral intake remains extremely poor, patient continues on oral supplements. Chronic appears to be stable, does not appear to be in any acute distress, she states her abdominal tenderness has improved, abdomen is soft, bowel sounds are present, colostomy is putting out liquid brown output, minimal output from the left percutaneous drain was inserted into the intra-abdominal abscess. Cultures remain negative thus far, patient remains on empiric antibiotics in the form of Zosyn, she has been afebrile, patient is unable to the incentive spirometer, but no cough, no congestion, lung sounds are clear, diminished at the bases, patient is on 2 L of oxygen, and her oxygen is around 92%, patient developed slight hematuria, Eliquis has been put on hold for PEG tube placement is scheduled for Saturday, we spoke to general surgery and the plan is to remove the percutaneous drain when the PEG tube is going to be inserted, clinically remains stable, will continue with current medical treatment. On 03/05/2019 patient is seen in follow-up in the intensive care unit, she remains confused, at times she removes her oxygen and attempts to pull out some of her lines, but for the most part she is non-agitated, resting comfortably in bed, currently on 4 L of oxygen with a pulse ox of 96%, she is afebrile, hemodynamically she is stable, maintenance IV fluids of lactated Ringer's a rate of 50 ML per hour, and patient will receive a unit of blood today for hemoglobin of 6.4 her surgery, there is no obvious signs of bleeding. His nutrition status remains quite poor, oral intake remains very poor, and patient is scheduled for PEG tube insertion tomorrow. Slight abdominal tenderness with palpation but no acute distress, left abdominal colostomy is producing liquid brown stool, and abdominal incision maggy are intact, small area in the middle of the incision is packed with the Aquasol Silver, and distal portion is having small amount of serous drainage. Patient has been afebrile. No signs of any respiratory distress, lung sounds are clear, patient still remains on supplemental oxygen at 4 L, her pulse ox is 96%. Remains on Zosyn and Eraxis for antibiotic coverage Objective - Vital Signs Vital signs: Vital Signs Temp 98 F 03/05/19 08:00 Pulse 110 H 03/05/19 09:00 Resp 21 03/05/19 09:00 BP 142/70 03/05/19 09:00 Pulse Ox 96 03/05/19 09:00 Intake & Output 03/04/19 03/05/19 03/05/19 18:59 06:59 18:59 Intake Total 663 240 129 Output Total 905 1090 600 Balance -242 -850 -471 Weight 70.6 kg 68.6 kg Intake: IV 663 240 129 0.9 Normal saline 220 240 Anidulafungin 100 mg In 168 84 Sodium Chloride 0.9% 100 ml @ 84 mls/hr IVPB DAILY [facility] Rx#:[id number] Lactated Ringers 1,000 ml 0 @ 50 mls/hr IV .Q20H [facility] Rx#:[id number] Piperacillin-Tazobactam 3 125 25 .375 gm In Sodium Chloride 0.9% 100 ml @ 25 mls/hr IVPB Q8HR [facility] Rx# :[id number] Sodium Chloride 0.9% 1, 150 20 000 ml @ 20 mls/hr IV . Q24H [facility] Rx#:[id number] Output: Urine 905 1090 300 Stool 300 Other: Voiding Method Indwelling Catheter Indwelling Catheter Indwelling Catheter # Voids 1 1 - Exam GENERAL EXAM: Alert, pleasant, 83-year-old white female, on 4 L per high flow nasal cannula, and her pulse ox is 96%, comfortable in no apparent distress. HEAD: Normocephalic/atraumatic. EYES: Normal reaction of pupils, equal size. Conjunctiva pink, sclera white. NOSE: Clear with pink turbinates. THROAT: No erythema or exudates. NECK: No masses, no JVD, no thyroid enlargement, no adenopathy. CHEST: No chest wall deformity. Symmetrical expansion. LUNGS: Equal air entry with no rhonchi, no wheezing, diminished breath sounds CVS: Irregular rate and rhythm, normal S1 and S2, no gallops, no murmurs, no rubs ABDOMEN: Soft, nontender. No hepatosplenomegaly, normal bowel sounds, no guarding or rigidity. Midline incision with maggy intact, colostomy with liquid brown output. Percutaneous drain on the left side with minimal drainage of serosanguineous output EXTREMITIES: No clubbing, no edema, no cyanosis, 2+ pulses and upper and lower extremities. MUSCULOSKELETAL: Muscle strength and tone normal. SPINE: No scoliosis or deformity SKIN: No rashes CENTRAL NERVOUS SYSTEM: Alert and oriented -1, presently confused. No focal deficits, tone is normal in all 4 extremities. PSYCHIATRIC: Alert and oriented -1. Appropriate affect. Intact judgment and insight. - Labs CBC & Chem 7: 03/05/19 04:36 03/05/19 04:36 Labs: Abnormal Lab Results - Last 24 Hours (Table) 03/04/19 03/04/19 03/04/19 Range/Units 04:25 11:46 12:02 RBC (3.80-5.40) m/uL Hgb (11.4-16.0) gm/dL Hct (34.0-46.0) % Chloride (98-107) mmol/L BUN (7-17) mg/dL Creatinine (0.52-1.04) mg/dL POC Glucose (mg/dL) 146 H 121 H (75-99) mg/dL Iron 24 L (50-170) ug/dL TIBC 198 L (228-460) ug/dL Total Protein (6.3-8.2) g/dL Albumin (3.5-5.0) g/dL Crossmatch 03/04/19 03/04/19 03/05/19 Range/Units 16:59 20:08 04:36 RBC 2.25 L (3.80-5.40) m/uL Hgb 6.4 L* (11.4-16.0) gm/dL Hct 20.4 L (34.0-46.0) % Chloride (98-107) mmol/L BUN (7-17) mg/dL Creatinine (0.52-1.04) mg/dL POC Glucose (mg/dL) 110 H 101 H (75-99) mg/dL Iron (50-170) ug/dL TIBC (228-460) ug/dL Total Protein (6.3-8.2) g/dL Albumin (3.5-5.0) g/dL Crossmatch 03/05/19 03/05/19 03/05/19 Range/Units 04:36 07:00 07:25 RBC (3.80-5.40) m/uL Hgb (11.4-16.0) gm/dL Hct (34.0-46.0) % Chloride 110 H (98-107) mmol/L BUN 32 H (7-17) mg/dL Creatinine 1.87 H (0.52-1.04) mg/dL POC Glucose (mg/dL) 101 H (75-99) mg/dL Iron (50-170) ug/dL TIBC (228-460) ug/dL Total Protein 6.0 L (6.3-8.2) g/dL Albumin 2.7 L (3.5-5.0) g/dL Crossmatch See Detail Assessment and Plan Plan: Assessment: #1. Acute bowel obstruction, status post exploratory laparotomy, extensive lysis of adhesions, sigmoid colectomy, and colostomy, postoperative day 21 #2. Large fluid collection in the pelvis could be related to an abscess, inte rventional radiology has been consulted for drainage, patient has a percutaneous drain for drainage of abscess, cultures are pending, negative thus far. Drainage output has diminished and over the last 24 hours is down to 25 mL on 03/03/2019 #3. Acute urinary tract infection with cultures positive for Klebsiella pneumonia and E. coli #4. Bilateral hydronephrosis seen on the CT of the abdomen and pelvis #5. Acute hypoxic respiratory failure suspect aspiration pneumonia, and postoperative atelectasis #6. Acute urinary tract infection secondary to Klebsiella pneumonia and E. coli, susceptible to Zosyn which the patient is currently on #7. A. fib with RVR, on oral metoprolol for rate control, and Eliquis #8. Chronic atrial fibrillation #9. Benign essential hypertension #10. History of hyperlipidemia #11. Acute on chronic renal failure patient has chronic kidney disease stage III at baseline #12. Confusion, related to [place] Encephalopathy Plan: Continue current antibiotics, hemodynamically and clinically patient remains stable, oral intake remains quite poor, patient is scheduled for PEG tube placement tomorrow, and her percutaneous drain will be removed at the same time. Her drain is putting out minimal amount of serous fluid, and cultures are negative, urine culture is positive for Klebsiella pneumonia and E. coli, and patient is covered with Zosyn, ID service is following, maintain safety precautions, consult PT to mobilize the patient. Oral anticoagulation remains on hold for surgery tomorrow, continue with SCDs and Protonix. One unit of blood will be transfused per surgery. We'll continue to follow. Stable to transfer out of intensive care unit to general medical floor I performed a history & physical examination of the patient and discussed their management with my nurse practitioner, Suzanne Kaur. I reviewed the nurse practitioner's note and agree with the documented findings and plan of care. Lung sounds are positive for diminished breath sounds with minimal rhonchi. The findings and the impression was discussed with the patient. I attest to the documentation by the nurse practitioner. Time with Patient: Less than 30
--- NOTE | 2019-03-05 12:08 | PN ---
PROGRESS NOTE Mrs. Ling is in sinus rhythm today. Her hemoglobin is down to 6.4. She is getting a unit of blood. She has cystitis, hemorrhagic, sees urology in this regard. I requested Urology to be involved to see of they have any additional suggestions. Under the circumstances, I am recommending that we hold Eliquis altogether even though she has atrial fibrillation and patient understands the risk of stroke. She is going for a PEG tube to vitals are stable there is JVD of 1 cm no carotid bruit S1-S2 heard normally short systolic murmur noted lungs are clear abdomen is soft. Lower extremities reveal diminished pulses. Cardiac-diaz, we will continue current medical regimen and seek further input regarding her hematuria from Urology. MMODL / IJN: [id number] /
[2019-03-05 12:14] LABS: Glucose,Whole Blood 143 mg/dL (75-99)
--- NOTE | 2019-03-05 12:50 | P.PN ---
<Siobhan Dugan Tiffany - Last Filed: 03/05/19 12:46> Subjective Progress Note Date: 03/05/19 CHIEF COMPLAINT: Abdominal pain HISTORY OF PRESENT ILLNESS: Patient is status post exploratory laparotomy, extensive lysis of adhesions, sigmoid colectomy, and end colostomy on 02/12/19. Patient examined at the bedside in the ICU. Patient reports mild abdominal pain this morning. Patient continues to have decreased oral intake. Hemoglobin 6.4. She is receiving 1 unit RBC transfusion today. PHYSICAL EXAM: VITAL SIGNS: Reviewed GENERAL: Well-developed in no acute distress. CHEST: Non-labored respirations and equal bilateral excursions. ABDOMEN: Soft. Nondistended. Dressing to abdomen clean dry intact. Ostomy with brown liquid stool noted. Drainage bag with serosanguineous drainage. PSYCH: Appropriate affect. Alert and oriented to person only. SKIN: Well perfused. Good skin turgor. ASSESSMENT: 1. Abdominal pain, status post exploratory laparotomy, extensive lysis of adhesions, sigmoid colectomy, and end colostomy secondary to colonic obstruction 2. Intrapelvic fluid collection PLAN: Continue dressing changes Continue antibiotics per ID. Monitor WBC Monitor hemoglobin. Patient to receive 1 unit RBC transfusion today. Continue to hold Eliquis Diet as tolerated. NPO at midnight Patient to undergo EGD with PEG tube placement tomorrow with Dr. Miller Nurse practitioner note has been reviewed by physician. Signing provider agrees with the documented findings, assessment, and plan of care. Objective - Vital Signs Vital signs: Vital Signs Temp 98 F 03/05/19 08:00 Pulse 88 03/05/19 12:13 Resp 15 03/05/19 11:01 BP 124/76 03/05/19 11:01 Pulse Ox 96 03/05/19 11:01 Intake & Output 03/04/19 03/05/19 03/05/19 18:59 06:59 18:59 Intake Total 663 240 304 Output Total 082 1175 750 Balance -242 -850 -446 Weight 70.6 kg 68.6 kg Intake: IV 663 240 304 0.9 Normal saline 220 240 25 Anidulafungin 100 mg In 168 84 Sodium Chloride 0.9% 100 ml @ 84 mls/hr IVPB DAILY [facility] Rx#:[id number] Lactated Ringers 1,000 ml 0 @ 50 mls/hr IV .Q20H [facility] Rx#:[id number] Piperacillin-Tazobactam 3 125 75 .375 gm In Sodium Chloride 0.9% 100 ml @ 25 mls/hr IVPB Q8HR [facility] Rx# :[id number] Sodium Chloride 0.9% 1, 150 20 000 ml @ 20 mls/hr IV . Q24H [facility] Rx#:[id number] Sodium Ferric Gluconat- 100 Sucrose 125 mg In Sodium Chloride 0.9% 100 ml @ 100 mls/hr IVPB DAILY [facility] Rx#:[id number] Blood Product 0 Rc As-1 Unit 0 [id number] Output: Urine 905 1090 450 Stool 300 Other: Voiding Method Indwelling Catheter Indwelling Catheter Indwelling Catheter # Voids 1 1 - Labs CBC & Chem 7: 03/05/19 04:36 03/05/19 04:36 Labs: Abnormal Lab Results - Last 24 Hours (Table) 03/04/19 03/04/19 03/04/19 Range/Units 04:25 16:59 20:08 RBC (3.80-5.40) m/uL Hgb (11.4-16.0) gm/dL Hct (34.0-46.0) % Chloride (98-107) mmol/L BUN (7-17) mg/dL Creatinine (0.52-1.04) mg/dL POC Glucose (mg/dL) 110 H 101 H (75-99) mg/dL Iron 24 L (50-170) ug/dL TIBC 198 L (228-460) ug/dL Total Protein (6.3-8.2) g/dL Albumin (3.5-5.0) g/dL Crossmatch 03/05/19 03/05/19 03/05/19 Range/Units 04:36 04:36 07:00 RBC 2.25 L (3.80-5.40) m/uL Hgb 6.4 L* (11.4-16.0) gm/dL Hct 20.4 L (34.0-46.0) % Chloride 110 H (98-107) mmol/L BUN 32 H (7-17) mg/dL Creatinine 1.87 H (0.52-1.04) mg/dL POC Glucose (mg/dL) 101 H (75-99) mg/dL Iron (50-170) ug/dL TIBC (228-460) ug/dL Total Protein 6.0 L (6.3-8.2) g/dL Albumin 2.7 L (3.5-5.0) g/dL Crossmatch 03/05/19 03/05/19 Range/Units 07:25 12:13 RBC (3.80-5.40) m/uL Hgb (11.4-16.0) gm/dL Hct (34.0-46.0) % Chloride (98-107) mmol/L BUN (7-17) mg/dL Creatinine (0.52-1.04) mg/dL POC Glucose (mg/dL) 143 H (75-99) mg/dL Iron (50-170) ug/dL TIBC (228-460) ug/dL Total Protein (6.3-8.2) g/dL Albumin (3.5-5.0) g/dL Crossmatch See Detail <Soham Miller - Last Filed: 03/05/19 16:04> Subjective as above. Patient confused this morning. Hemoglobin 6.4. Agree with transfusion. Tentatively plan PEG tube placement tomorrow. Objective - Vital Signs Vital signs: Vital Signs Temp 98.2 F 03/05/19 14:08 Pulse 68 03/05/19 15:53 Resp 16 03/05/19 14:08 BP 158/78 03/05/19 14:08 Pulse Ox 96 03/05/19 14:08 Intake & Output 03/04/19 03/05/19 03/05/19 18:59 06:59 18:59 Intake Total 663 240 614 Output Total 905 1090 750 Balance -242 -850 -136 Weight 70.6 kg 68.6 kg Intake: IV 663 240 304 0.9 Normal saline 220 240 25 Anidulafungin 100 mg In 168 84 Sodium Chloride 0.9% 100 ml @ 84 mls/hr IVPB DAILY [facility] Rx#:[id number] Lactated Ringers 1,000 ml 0 @ 50 mls/hr IV .Q20H [facility] Rx#:[id number] Piperacillin-Tazobactam 3 125 75 .375 gm In Sodium Chloride 0.9% 100 ml @ 25 mls/hr IVPB Q8HR [facility] Rx# :[id number] Sodium Chloride 0.9% 1, 150 20 000 ml @ 20 mls/hr IV . Q24H [facility] Rx#:[id number] Sodium Ferric Gluconat- 100 Sucrose 125 mg In Sodium Chloride 0.9% 100 ml @ 100 mls/hr IVPB DAILY [facility] Rx#:[id number] Blood Product 310 Rc As-1 Unit 310 [id number] Output: Urine 905 1090 450 Stool 300 Other: Voiding Method Indwelling Catheter Indwelling Catheter Indwelling Catheter # Voids 1 1 - Labs CBC & Chem 7: 03/05/19 04:36 03/05/19 04:36 Labs: Abnormal Lab Results - Last 24 Hours (Table) 03/04/19 03/04/19 03/04/19 Range/Units 04:25 16:59 20:08 RBC (3.80-5.40) m/uL Hgb (11.4-16.0) gm/dL Hct (34.0-46.0) % Chloride (98-107) mmol/L BUN (7-17) mg/dL Creatinine (0.52-1.04) mg/dL POC Glucose (mg/dL) 110 H 101 H (75-99) mg/dL Iron 24 L (50-170) ug/dL TIBC 198 L (228-460) ug/dL Total Protein (6.3-8.2) g/dL Albumin (3.5-5.0) g/dL Crossmatch 03/05/19 03/05/19 03/05/19 Range/Units 04:36 04:36 07:00 RBC 2.25 L (3.80-5.40) m/uL Hgb 6.4 L* (11.4-16.0) gm/dL Hct 20.4 L (34.0-46.0) % Chloride 110 H (98-107) mmol/L BUN 32 H (7-17) mg/dL Creatinine 1.87 H (0.52-1.04) mg/dL POC Glucose (mg/dL) 101 H (75-99) mg/dL Iron (50-170) ug/dL TIBC (228-460) ug/dL Total Protein 6.0 L (6.3-8.2) g/dL Albumin 2.7 L (3.5-5.0) g/dL Crossmatch 03/05/19 03/05/19 Range/Units 07:25 12:13 RBC (3.80-5.40) m/uL Hgb (11.4-16.0) gm/dL Hct (34.0-46.0) % Chloride (98-107) mmol/L BUN (7-17) mg/dL Creatinine (0.52-1.04) mg/dL POC Glucose (mg/dL) 143 H (75-99) mg/dL Iron (50-170) ug/dL TIBC (228-460) ug/dL Total Protein (6.3-8.2) g/dL Albumin (3.5-5.0) g/dL Crossmatch See Detail Assessment and Plan (1) Abdominal pain Current Visit: Yes Status: Acute Code(s): R10.9 - UNSPECIFIED ABDOMINAL PAIN SNOMED Code(s): 27545604
[2019-03-05 16:46] LABS: Glucose,Whole Blood 95 mg/dL (75-99)
--- NOTE | 2019-03-05 19:49 | P.PN ---
Subjective Progress Note Date: 03/05/19 Principal diagnosis: mechanical obstruction with small bowel and distended abdomen with history of adhesions in the past. The progress note dictated on 02/08/2090 by Patient with history notable bowel movement or stool or passing flatus for more than one week duration x-ray indicating small bowel mechanical obstruction. And patient currently nothing by mouth with NG tube which she did some relief. 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 And seen by Dr. ISATU Zamudio. Respiratory rate 16 and her blood pressure is hypertensive in spite of trial of medication 187/84. She is on nasal cannula 2 L of oxygen with a pulse ox 95%. current laboratories indicating that her WBC 5.3 with a hemoglobin 11.6, her platelet count 414.next is her PTT 32.6with the normal range 30.6. Minimally elevated. Chemistry indicating sodium 144 potassium 3.8 chloride 108 carbon dioxid 28, anion gap 8, BUN 20, creatinine 1.94, EGFR 23 with chronic kidney disease stage IV. Glucose 131AST and LT normal alk phos 137 total protein 6.1 and albumin 3.4 thyroid function is normal and the free T3 some little bit lower than normal that is because of her illness Nephrology evaluation and assessment indicating patient with the UTI Klebsiella pneumonia and E. coli treated according to the culture with the assessment acute kidney injury possibly prerenal improved with hydration. Chronic kidney disease stage IV with the creatinine near 2 secondary to hydronephrosis and left renal atrophy. #3 abdominal pain with questionable diverticulitis and chronic obstruction and NG tube for decompression. Neurogenic bladder and uses a catheterization 4-5 a day metabolic acidosis and she is on bicarb hypertension is controlled and UTI. Physical exam patient status post barium enema and patient the result reviewed by Dr. Sahu and his impression will be discussed with the family. HEENT was negative neck was supple and chest was clear and the heart was currently controlled atrophic And abdomen is tender distended and with the small bowel obstruction extremities no edema. Assessment small bowel obstruction mechanical and high fall to the patient should have surgical intervention. However this is a surgical case and up to the family and the surgeon. Progress note dictation Date of service 03/05/[address] Engel. Patient seen and evaluated discussed with the patient, she is conscious alert but confused and she had bedside setter. Vital signs stable with temperature 98.2 respiratory rate nonlabored. Blood pressure 158/78, pulse ox 96% on 4 L. WBC 7.5 hemoglobin 6.4 and hematocrit 20.4 with the hypochromic, patient transfused 1 units of packed RBCs today, cardiology will be address the anticoagulant as well as a urology with the underlying hematuria with dropping of her hemoglobin. Chemistry: Sodium 143, potassium 3.7, the BUN is 32 and creatinine 1.87 with decrease IV fluid to total of 40 mL an hour. His estimated glomerular filtration rate for non- is 28 with a chronic kidney disease stage IV. Hyperglycemia is improved with discontinuation of the TPN and Intralipid and glucose. And the CBG ranging from between 1011 43. Calcium is 8.6, bilirubin 0.6, AST 19, a LT 12, alk phos 126, total protein 6, albumin 2.7. On examination patient awake conscious alert confused intermittently able to communicate HEENT negative Neck supple no changes. Chest radiated bilaterally with the underlying right hemidiaphragm elevation. Heart currently sinus rhythm with a history of atrial fibrillation on anticoagulant aliquots. Abdomen: Soft positive bowel sound mildly distended the colostomy bag with the stool functioning. Extremities: No edema. Pulses. Murphy catheter in place with the hematuria appears to be gradually improving. New Assessment Patient clinical improvement Patient supposedly gr 4 PICU placement for nutritional feeding and supports with the underlying hypo-albuminemia hypoproteinemia and the decreased oral intake. Plan: No change in her current treatment. Objective - Vital Signs Vital signs: Vital Signs Temp 98.2 F 03/05/19 14:08 Pulse 66 03/05/19 16:04 Resp 16 03/05/19 14:08 BP 158/78 03/05/19 14:08 Pulse Ox 96 03/05/19 14:08 Intake & Output 03/05/19 03/05/19 03/06/19 06:59 18:59 06:59 Intake Total 240 614 Output Total 1090 750 Balance -850 -136 Weight 68.6 kg Intake: IV 240 304 0.9 Normal saline 240 25 Anidulafungin 100 mg In 84 Sodium Chloride 0.9% 100 ml @ 84 mls/hr IVPB DAILY [facility] Rx#:[id number] Lactated Ringers 1,000 ml 0 @ 50 mls/hr IV .Q20H [facility] Rx#:[id number] Piperacillin-Tazobactam 3 75 .375 gm In Sodium Chloride 0.9% 100 ml @ 25 mls/hr IVPB Q8HR [facility] Rx# :[id number] Sodium Chloride 0.9% 1, 20 000 ml @ 20 mls/hr IV . Q24H [facility] Rx#:[id number] Sodium Ferric Gluconat- 100 Sucrose 125 mg In Sodium Chloride 0.9% 100 ml @ 100 mls/hr IVPB DAILY [facility] Rx#:[id number] Blood Product 310 Rc As-1 Unit 310 [id number] Output: Urine 1090 450 Stool 300 Other: Voiding Method Indwelling Catheter Indwelling Catheter # Voids 1 - Labs CBC & Chem 7: 03/05/19 04:36 03/05/19 04:36 Labs: Abnormal Lab Results - Last 24 Hours (Table) 03/04/19 03/05/19 03/05/19 Range/Units 20:08 04:36 04:36 RBC 2.25 L (3.80-5.40) m/uL Hgb 6.4 L* (11.4-16.0) gm/dL Hct 20.4 L (34.0-46.0) % Chloride 110 H (98-107) mmol/L BUN 32 H (7-17) mg/dL Creatinine 1.87 H (0.52-1.04) mg/dL POC Glucose (mg/dL) 101 H (75-99) mg/dL Total Protein 6.0 L (6.3-8.2) g/dL Albumin 2.7 L (3.5-5.0) g/dL Crossmatch 03/05/19 03/05/19 03/05/19 Range/Units 07:00 07:25 12:13 RBC (3.80-5.40) m/uL Hgb (11.4-16.0) gm/dL Hct (34.0-46.0) % Chloride (98-107) mmol/L BUN (7-17) mg/dL Creatinine (0.52-1.04) mg/dL POC Glucose (mg/dL) 101 H 143 H (75-99) mg/dL Total Protein (6.3-8.2) g/dL Albumin (3.5-5.0) g/dL Crossmatch See Detail
[2019-03-05 20:05] LABS: HCT 25.8 % (34.0-46.0); Hypochromasia Slight; MCHC 32.6 g/dL (31.0-37.0); MCV 88.9 fL (80.0-100.0); Mean Platelet Volume 7.6; Platelet Count 351 k/uL (150-450); Poikilocytosis Slight; RDW 15.6 % (11.5-15.5); WBC 8.2 k/uL (3.8-10.6)
[2019-03-05 20:11] LABS: HGB 8.4 gm/dL (11.4-16.0)
[2019-03-05 20:46] LABS: Glucose,Whole Blood 150 mg/dL (75-99)
[2019-03-05] MEDS: ATORVASTATIN 10 MG TAB PO SCH (21:13)
[2019-03-05] MEDS: DULoxetine HCL 60 MG CAPSULE.DR PO SCH (21:14)
--- NOTE | 2019-03-05 21:38 | PN ---
PROGRESS NOTE DATE OF SERVICE: 03/05/2019. REASON FOR FOLLOWUP: A perforated diverticulitis, abdominal sepsis and UTI. INTERVAL HISTORY: The patient is currently afebrile. The patient is breathing comfortably. Patient denies having any chest pain or shortness of breath. Occasional cough. No nausea, no vomiting. No abdominal pain. No diarrhea. PHYSICAL EXAMINATION: Blood pressure is 152/78 with a pulse of 68, temperature 98.2. She is 96% on 4 L nasal cannula. General description is an elderly female up in the bed in no distress. Respiratory system: Unlabored breathing. Clear to auscultation anteriorly. Heart: S1, S2. Regular rate and rhythm. Abdomen soft. No tenderness. LABS: Hemoglobin white count 10.5. BUN of 32, creatinine . DIAGNOSTIC IMPRESSION AND PLAN: 1. Patient with perforated diverticulitis status post diverting colostomy. Subsequently abdominal fluid collection, concern for abscess that has been drained. Culture has been negative. Currently covered on Zosyn. Transition to a short course of oral antibiotic down the PEG tube once she gets a PEG tube. 2. Positive culture with Selin albicans. Murphy has been changed. Repeat urine culture so far negative. If remains to be negative, we will discontinue . MMODL / IJN: [id number] /
[2019-03-06 04:30] LABS: HCT 26.9 % (34.0-46.0); HGB 8.8 gm/dL (11.4-16.0); Hypochromasia Moderate; MCHC 32.9 g/dL (31.0-37.0); MCV 88.4 fL (80.0-100.0); Mean Platelet Volume 7.6; Platelet Count 358 k/uL (150-450); Poikilocytosis Slight; RBC 3.04 m/uL (3.80-5.40); RDW 15.4 % (11.5-15.5); WBC 9.8 k/uL (3.8-10.6)
[2019-03-06 04:40] LABS: Calcium 8.8 mg/dL (8.4-10.2); Potassium 3.5 mmol/L (3.5-5.1)
[2019-03-06 07:08] LABS: Glucose,Whole Blood 95 mg/dL (75-99)
[2019-03-06] MEDS: BUDESONIDE 0.5 MG/2 ML NEBU INHALATION SCH ×2 (07:22→20:20)
[2019-03-06] MEDS: IPRATROPIUM-ALBUTEROL 3 ML NEB INHALATION SCH ×4 (07:22→20:20)
[2019-03-06] MEDS: INSULIN ASPART (NovoLOG) 100 UNIT/ML VIAL SQ SCH ×4 (08:25→21:25)
[2019-03-06] MEDS ORDERED: ceFAZolin 1,000 MG VIAL ONE (08:31)
[2019-03-06] MEDS ORDERED: PROPOFOL 10 MG/ML 20 ML VIAL IV ONE (08:31)
[2019-03-06] MEDS ORDERED: SODIUM CHLORIDE 0.9% 100 ML BAG ONE (08:31)
[2019-03-06] MEDS ORDERED: LIDOCAINE 1% INJ 10MG/ML (20 ML MDV) ONE (08:31)
[2019-03-06] MEDS ORDERED: KETAMINE 10 MG/ML 20 ML VIAL ONE (08:31)
[2019-03-06] MEDS ORDERED: SODIUM CHLORIDE 0.9% 500 ML IV ONE (08:33)
--- NOTE | 2019-03-06 08:55 | P.PCN ---
Date of Procedure: 03/06/19 Procedure(s) Performed: PREOPERATIVE DIAGNOSIS: Malnutrition POSTOPERATIVE DIAGNOSIS: Same PROCEDURE: EGD with PEG tube placement SURGEON: Paul EBL: Minimal ANESTHESIA: Sedation COMPLICATIONS: None OPERATIVE PROCEDURE: The patient was placed in the supine position on the endoscopy table. The patient was sedated per anesthesia that time. The Olympus gastroscope was inserted into the oropharynx and passed under direct visualization to the region of the duodenum. No obstruction was seen. The pylorus was widely patent. The stomach was carefully inspected. The stomach was fully insufflated with air. The abdominal wall was inspected. The light was seen shining through the abdominal wall in the left upper quadrant. This site was chosen for PEG tube placement. The area was prepped in the usual sterile fashion. This area was then localized with lidocaine. A small vertical incision was made using the scalpel. The Seldinger needle was advanced into the lumen of the stomach the wire was advanced. The wire was grasped with an endoscopic snare. The wire was pulled through the oropharynx. The catheter was then threaded over the guidewire and the guidewire and catheter were pulled anteriorly until the hub of the PEG tube catheter was seated against the anterior wall the stomach. The circular bolster was applied and tightened down to about 2.5 cm. The endoscope was then readvanced into the stomach. There was no evidence of any bleeding and there was appropriate tightness on the bolster. The catheter was cut appropriately. The dual port feeding adapter was applied. DISPOSITION: Stable to recovery room
--- NOTE | 2019-03-06 09:36 | P.PN ---
Subjective Progress Note Date: 03/06/19 Principal diagnosis: Acute bowel obstruction status post laparotomy with extensive lysis of adhesions and sigmoid colectomy and end colostomy postoperative day 5 This is a pleasant 83-year-old female patient admitted back on 02/07/2019 with complaints of constipation and abdominal discomfort. She had not moved her bowels for several days prior. Abdominal x-rays did show evidence of constipation. Fleet enema and MiraLAX at home were unsuccessful. She was subsequently admitted for abdominal bloating and discomfort. She was found to have a colon obstruction and yesterday had undergone exposure laparotomy, extensive lysis of adhesions, sigmoid colectomy, end colostomy done by Dr. Miller. She remained hypoxic postoperatively and was placed on BiPAP with an FiO2 of 80%. We're consulted for the same. No chest x-ray was done. She is seen today on the selective care unit. She is currently awake and alert in no acute distress. She is having some ongoing abdominal discomfort. She has a midline incision with maggy intact and a colostomy with stool present. She is currently on 6 L high flow nasal cannula and maintaining O2 saturation in the mid 90s. She denies any worsening shortness of breath, cough or congestion. Urine culture was positive for Klebsiella pneumoniae and E coli. Blood cultures had revealed no growth. White count 12.8. Hemoglobin 11.6. Sodium 148. Potassium 3.9. Creatinine 2.20. She has D5.45 running at 100 ML's per hour. She is currently on ceftriaxone and Flagyl. PPN and lipids have been ordered. The patient was having issues with atrial fibrillation preoperatively and was initially on a heparin drip. The plan from cardiology is to initiate Eliquis once cleared surgically. On today's evaluation of 02/14/2019 I was asked even with this patient and the patient was found to be more lethargic and short of breath. I the patient did she is relatively comfortable on oxygen at 4 L. Nevertheless, she states that she wants to and she is unable to take this ongoing treatment any further. In terms of her cardiac condition, she is in atrial fibrillation with rapid ventricular response and a current heart rate is around 120-140. She has a Murphy catheter urine output is in order of 30 mL an hour. She had a chest x-ray that showed increased opacification of the lung bases. Ultrasound of the chest was done that showed small pockets and based on the ultrasound these markers were not and minimal 4 thoracentesis. She is on Diprivan running at the rate of 75 mL an hour. She is also on IV fluids running at 75 mL an hour of normal saline. The patient has a positive fluid balance of 1.1 L. She has a creatinin e of 2.4 with a mean of 34. ABCDs not done this morning. She has a positive output and her colostomy bag. The surgical wound site is dry clean and intact. She is afebrile for now. on 02/16/2016, the patient is transferred to the intensive care unit. The patient's oxygen requirements went up yesterday and she is currently on15 L of oxygen by nasal cannula. I opted to bring her down to the ICU. The ultrasound of the chest was not conclusive in terms of fluid and based on that I ordered a CAT scan of the chest that was done without contrast and the CAT scan showed worsening atelectatic changes in lung bases, pneumonia cannot be completely excluded. The pleural effusions were very tiny and there were not and the blood for thoracentesis. Based on that, no intervention was done. Currently she is awake and alert. She is on a combination of IV Rocephin and Flagyl.er white cell count came up to 18. Her creatinine is up to 2.1. Creatinine is stable for now. The lactic acid level was low at 1. She is awake. She is alert. The colostomy is functioning and she has adequate output at this point in time.The patient still on TPN and were going to initiate someclear liquid diet today. Reevaluated today on 02/16/2019, patient remains in the ICU, O2 saturation is marginal, still requiring a high flow nasal cannula at 15 L/m, chest x-ray shows significant airspace disease and atelectasis with consolidation at the bases bilaterally right more so than left, hence I recommended that we use intermittently BiPAP with IPAP of 12 and EPAP of 4. Continues to have leukocytosis with WBC count of 14.5, hemoglobin is 10.1 lites are normal BUN is 41 creatinine 2.01. Close to her baseline since admission. Chest x-ray is quite concerning to me, and CT of the chest was also reviewed, patient has significant bibasilar consolidation and air bronchograms noted in both lungs bilaterally more so in the right lower lobe. On 02/17/2019 patient seen in follow-up in the intensive care unit, she is off BiPAP support currently, she is on 15 L, and her pulse ox is 92-94%, either tachycardic on a monitor, hemodynamically patient is stable, she states she feels short of breath, she has a congested cough, at times she is able to produce small amount of yellowish sputum, lung sounds are positive for rhonchi, and some wheezing, urine culture was positive for Klebsiella pneumonia and E. c rema, blood culture has shown no growth, patient's antibiotics have been simplified and currently patient is on Zosyn. White count is trending down, it is 13.8 on today's labs, hemoglobin is 10.2, sodium was 135, dorsiflexors were unremarkable, B1 is 41 creatinine is 1.94, profile is slightly improved, incentive spirometry effort is poor, and patient is only able to achieve 500 on the incentive spirometer today. Patient continues to be nothing by mouth, she continues on TPN, she was started on promotility agent, in the form of Reglan. Was no output from her ostomy overnight. Surgery is following. On 02/23/2019 patient was seen in follow-up in the intensive care unit. This is postoperative day #11, status post exploratory laparotomy, and extensive lysis of adhesions, sigmoid colectomy and colostomy for acute bowel obstruction. She is awake and alert, does not appear to be in any acute distress, still requiring high flow oxygen, to 15 L currently, her pulse ox is 97%, we will try to wean it down, she's been afebrile, she is however in A. fib RVR with a rate of 120-140, currently on oral metoprolol for rate control, she is on Lopressor 50 mg 3 times daily, is on IV antibiotics, no form of Zosyn, urine culture showed Klebsiella pneumonia and E. coli, susceptible to Zosyn. Hemodynamically she is stable, there have been no fevers, his labs have been reviewed, showing white blood cell count of 16.2, hemoglobin of 8.7, platelet count of 721, sodium is 133, potassium is 5.0, CO2 is 21, BUN is 56, creatinine is 2.17. Today's chest x-ray has been reviewed during patchy bibasilar opacities , low lung volumes, persistent trace pleural effusions, and atelectasis. Mid abdominal incision clean dry and intact, maggy are intact, left abdomen colostomy is with liquid stool, bowel sounds are present. Patient remains on TPN for supplementation of nutrition, and patient is also on the chopped dysphagia 3 diet with 1500 mL fluid restriction. On 02/24/2019 patient seen in follow-up in the intensive care unit, she is resting comfortably in bed, this is postop day 12 status post exploratory laparotomy, and extensive lysis of adhesions, sigmoid colectomy and colostomy for acute bowel obstruction. Yesterday patient had a CT of abdomen and pelvis which revealed a large discrete fluid collection in the pelvis between the rectum and the urinary bladder that could be related to an abscess. Interventional radiology has been consulted for possible drainage of this abscess, however patient has been on Eliquis, and IR will not be able to proceed with the procedure for about 48 hours. Patient denies abdominal discomfort, NG tube has been inserted, and her about 300-400 mL of brownish colored output. Denies any worsening dyspnea, she needs a lot of encouragement to work with the incentive spirometer, and she is only achieving 250-500 mL on it today. Remains in A. fib but today's rate is better controlled, oral diltiazem has been added in addition to metoprolol. Hemodynamically stable. Patient is Zosyn for empiric antibiotic coverage, she's been afebrile, today's labs have been reviewed, showing white blood cell count of 14.0, hemoglobin of 7.7, serum sodium is 132, the rest of the electrolytes were within normal limits, BUN is 63 and creatinine is 2.4, chest x-ray today shows congestive heart failure with pleural effusions. On 02/26/2019 patient is seen in follow-up in the intensive care unit, she is awake and alert, but only oriented to person, confused, but appears to be in no acute distress, FiO2 is down to 6 L per high flow nasal cannula a pulse ox of 90, denies any respiratory distress, lung sounds are clear, diminished at the bases, remains nothing by mouth, abdomen is tender to palpation, but no acute distress, NGT has been discontinued. Patient has positive bowel sounds. Heparin infusion is on hold, the possibility of a cutaneous drainage of intra- abdominal abscess. Based chest x-ray has been reviewed and showing a right PICC line in the right jugular vein, we will reconsult interventional radiology for repositioning of the PICC line, and trace pleural effusions and bibasilar opacities that may represent atelectasis or pneumonia. Antibiotic coverage in the form of Zosyn, patient has been afebrile. Colostomy is functioning, making liquid brown stool. On 02/27/2019 patient is seen in follow-up in the intensive care unit, she is pleasantly confused, she has a environmental health and safety manager at the bedside to prevent her from removing her indwelling catheters. FiO2 down to 4 L and her pulse ox is 92-93%, hemodynamically patient is stable, low-grade fever this morning, no evidence of any distress, denies any abdominal pain, her colostomy is functioning, putting out liquid brown stool, yesterday patient had a percutaneous drain put in for drainage of intra-abdominal abscess, there has been 150 mL of serosanguineous drainage from the tube in the last 24 hours. Hemodynamically she remains stable, point normal saline infusing at a rate of 50 ML per hour, TPN is at 60, yesterday we inserted a Dobbhoff feeding tube for supplementation of her nutrition, patient's appetite remains very poor, patient is practically refusing all meals. Patient will be reinitiated on her oral intake regulation by cardiology. Patient had a low-grade fever with a T-max 100.3F yesterday. Zosyn for antibiotic coverage continues, abscess drainage was sent for culture and is pending at this time. ID service is following. Today's chest x-ray has been reviewed showing prominent lower lung atelectasis and/or consolidation. And continued elevation of right hemidiaphragm. On 03/02/2019 patient seen in follow-up in intensive care unit, she is in no acute distress, pleasant confused, today is postoperative day 18, status post exposure laparotomy, and extensive lysis of adhesions, sigmoid colectomy and colostomy for acute bowel obstruction, patient subsequently also had a percutaneous drain inserted for intra-abdominal abscess, no further cultures are negative, urine culture showed Klebsiella pneumonia and E. coli for which the pa oscar remains on Zosyn, did have a low-grade fevers last night, he service is following, no complaints of abdominal pain, abdomen slightly distended and tympanic, per surgery abdominal flat plate x-ray is being obtained, colostomy is producing liquid brown stool, patient is tolerating tube feedings, appetite remains poor, and patient is on full liquid diet, no signs of respiratory distress, lung sounds are clear diminished at bases, patient does have an effective cough. On 03/03/2019 she is seen in follow-up in the intensive care unit. Patient is awake and alert to person, disoriented to place and time. Patient is complaining of abdominal discomfort today, and this morning apparently she complained of some mild nausea, but has not had any vomiting. Her abdomen seems to be slightly softer on today's exam, are positive bowel sounds 4, low-grade fevers today, patient remains in A. fib, with a rate of 100 BPM, she is on oral anticoagulation in the form of Eliquis. 0.9 normal saline at a rate of 50 ML per hour, antibiotic coverage is in the form of Zosyn and Eraxis. Rate control medications are with oral Cardizem, oral amiodarone and oral metoprolol. Denies any difficulty breathing, pulse Ox 90-92% on 2 L of oxygen. Lung sounds are clear. Percutaneous drain on left side is making minimal amount of serosanguineous output, and the drainage cultures are negative thus far. On 03/04/2019 patient is seen in follow-up in the intensive care unit, she remains confused, but not agitated, she does periodically remove her oxygen, on the Dobbhoff tube was not draining inserted, although the oral intake remains extremely poor, patient continues on oral supplements. Chronic appears to be stable, does not appear to be in any acute distress, she states her abdominal tenderness has improved, abdomen is soft, bowel sounds are present, colostomy is putting out liquid brown output, minimal output from the left percutaneous drain was inserted into the intra-abdominal abscess. Cultures remain negative thus far, patient remains on empiric antibiotics in the form of Zosyn, she has been afebrile, patient is unable to the incentive spirometer, but no cough, no congestion, lung sounds are clear, diminished at the bases, patient is on 2 L of oxygen, and her oxygen is around 92%, patient developed slight hematuria, Eliquis has been put on hold for PEG tube placement is scheduled for Saturday, we spoke to general surgery and the plan is to remove the percutaneous drain when the PEG tube is going to be inserted, clinically remains stable, will continue with current medical treatment. On 03/05/2019 patient is seen in follow-up in the intensive care unit, she remains confused, at times she removes her oxygen and attempts to pull out some of her lines, but for the most part she is non-agitated, resting comfortably in bed, currently on 4 L of oxygen with a pulse ox of 96%, she is afebrile, hemodynamically she is stable, maintenance IV fluids of lactated Ringer's a rate of 50 ML per hour, and patient will receive a unit of blood today for hemoglobin of 6.4 her surgery, there is no obvious signs of bleeding. His nutrition status remains quite poor, oral intake remains very poor, and patient is scheduled for PEG tube insertion tomorrow. Slight abdominal tenderness with palpation but no acute distress, left abdominal colostomy is producing liquid brown stool, and abdominal incision maggy are intact, small area in the middle of the incision is packed with the Aquasol Silver, and distal portion is having small amount of serous drainage. Patient has been afebrile. No signs of any respiratory distress, lung sounds are clear, patient still remains on supplemental oxygen at 4 L, her pulse ox is 96%. Remains on Zosyn and Eraxis for antibiotic coverage On 03/06/2019 patient seen in follow-up in intensive care unit, she had just returned from her procedure for insertion of PEG tube for nutritional supplementation, she is resting comfortably in bed, still somewhat sedated, she is on 2 L of oxygen with a pulse ox of 96%, no signs of acute distress, normal vital signs, afebrile. Today's labs have been reviewed, showing white blood cell count was 9.8, hemoglobin of 8.8, electrolytes were unremarkable, and a profile is stable, with the BUN of 26 and creatinine is 123. She remains on a combination of Eraxis and Zosyn. No fever, no chills. Percutaneous drain in her left posterior side has been discontinued as well Objective - Vital Signs Vital signs: Vital Signs Temp 97.4 F L 03/06/19 08:00 Pulse 75 03/06/19 08:00 Resp 10 L 03/06/19 08:00 BP 156/76 03/06/19 08:00 Pulse Ox 96 03/06/19 08:00 Intake & Output 03/05/19 03/06/19 03/06/19 18:59 06:59 18:59 Intake Total 614 1150 200 Output Total 1125 1580 250 Balance -511 -430 -50 Weight 68.2 kg Intake: IV 304 1150 200 0.9 Normal saline 25 1050 50 Anidulafungin 100 mg In 84 Sodium Chloride 0.9% 100 ml @ 84 mls/hr IVPB DAILY [facility] Rx#:[id number] Lactated Ringers 1,000 ml 0 @ 50 mls/hr IV .Q20H [facility] Rx#:[id number] Piperacillin-Tazobactam 3 75 100 .375 gm In Sodium Chloride 0.9% 100 ml @ 25 mls/hr IVPB Q8HR [facility] Rx# :[id number] Sodium Chloride 0.9% 1, 20 000 ml @ 20 mls/hr IV . Q24H [facility] Rx#:[id number] Sodium Ferric Gluconat- 100 Sucrose 125 mg In Sodium Chloride 0.9% 100 ml @ 100 mls/hr IVPB DAILY [facility] Rx#:[id number] Blood Product 310 Rc As-1 Unit 310 [id number] Output: Drainage 25 Left Buttock 25 Urine 800 1580 250 Stool 300 Other: Voiding Method Indwelling Catheter Indwelling Catheter # Voids 1 - Exam GENERAL EXAM:Sedated, 83-year-old white female, on 2 L per high flow nasal cannula, and her pulse ox is 96%, comfortable in no apparent distress. HEAD: Normocephalic/atraumatic. EYES: Normal reaction of pupils, equal size. Conjunctiva pink, sclera white. NOSE: Clear with pink turbinates. THROAT: No erythema or exudates. NECK: No masses, no JVD, no thyroid enlargement, no adenopathy. CHEST: No chest wall deformity. Symmetrical expansion. LUNGS: Equal air entry with no rhonchi, no wheezing, diminished breath sounds CVS: Irregular rate and rhythm, normal S1 and S2, no gallops, no murmurs, no rubs ABDOMEN: Soft, nontender. No hepatosplenomegaly, normal bowel sounds, no guarding or rigidity. Midline incision with maggy intact, colostomy with liquid brown output. Percutaneous drain on the left side has been discontinued. PEG tube has been. EXTREMITIES: No clubbing, no edema, no cyanosis, 2+ pulses and upper and lower extremities. MUSCULOSKELETAL: Muscle strength and tone normal. SPINE: No scoliosis or deformity SKIN: No rashes CENTRAL NERVOUS SYSTEM: Sedated, confused. No focal deficits, tone is normal in all 4 extremities. - Labs CBC & Chem 7: 03/06/19 04:18 03/06/19 04:18 Labs: Abnormal Lab Results - Last 24 Hours (Table) 03/05/19 03/05/19 03/05/19 Range/Units 07:25 12:13 19:50 RBC 2.90 L (3.80-5.40) m/uL Hgb 8.4 L D (11.4-16.0) gm/dL Hct 25.8 L (34.0-46.0) % RDW 15.6 H (11.5-15.5) % Chloride (98-107) mmol/L BUN (7-17) mg/dL Creatinine (0.52-1.04) mg/dL POC Glucose (mg/dL) 143 H (75-99) mg/dL Crossmatch See Detail 03/05/19 03/06/19 03/06/19 Range/Units 20:44 04:18 04:18 RBC 3.04 L (3.80-5.40) m/uL Hgb 8.8 L (11.4-16.0) gm/dL Hct 26.9 L (34.0-46.0) % RDW (11.5-15.5) % Chloride 108 H (98-107) mmol/L BUN 26 H (7-17) mg/dL Creatinine 1.83 H (0.52-1.04) mg/dL POC Glucose (mg/dL) 150 H (75-99) mg/dL Crossmatch Assessment and Plan Plan: Assessment: #1. Acute bowel obstruction, status post exploratory laparotomy, extensive lysis of adhesions, sigmoid colectomy, and colostomy, postoperative day 22 #2. Large fluid collection in the pelvis could be related to an abscess, interventional radiology has been consulted for drainage, patient has a percutaneous drain for drainage of abscess, cultures are pending, negative thus far. Drainage output has diminished and over the last 24 hours is down to 25 mL on 03/03/2019. On 03/03/2019 follow-up CAT scan of the abdomen and pelvis showed largely resolved pelvic abscess, small amount of residual remaining. The drain has been discontinued on 03/06/2019. #3. Acute urinary tract infection with cultures positive for Klebsiella pneumonia and E. coli #4. Bilateral hydronephrosis seen on the CT of the abdomen and pelvis #5. Acute hypoxic respiratory failure suspect aspiration pneumonia, and postoperative atelectasis #6. Acute urinary tract infection secondary to Klebsiella pneumonia and E. coli, susceptible to Zosyn which the patient is currently on #7. A. fib with RVR, on oral metoprolol for rate control, and Eliquis #8. Chronic atrial fibrillation #9. Benign essential hypertension #10. History of hyperlipidemia #11. Acute on chronic renal failure patient has chronic kidney disease stage III at baseline #12. Confusion, related to metabolic encephalopathy #13. Poor oral intake, patient had a PEG tube inserted on 03/06/2019 Plan: Continue current treatment, maintain safety precautions, PEG tube has been inserted, and percutaneous drain has been removed, clinically patient remains stable, she continues on antibiotics per ID service recommendations, she's been afebrile, remains confused, and her oral intake remains poor. No respiratory complaints, FiO2 is down to 2 L, encourage deep breathing and coughing, maintain aspiration precautions. Able to go out of ICU to general medical floor with remote telemetry I performed a history & physical examination of the patient and discussed their management with my nurse practitioner, Suzanne Kaur. I reviewed the nurse practitioner's note and agree with the documented findings and plan of care. Lung sounds are positive for diminished breath sounds with minimal rhonchi. The findings and the impression was discussed with the patient. I attest to the documentation by the nurse practitioner. Time with Patient: Less than 30
[2019-03-06] MEDS ORDERED: POTASSIUM CHLORIDE 20 MEQ in WATER FOR INJECTION 1 100ML.BAG IVPB STA (09:51)
[2019-03-06] MEDS: DRONABINOL 2.5 MG CAP PO SCH ×2 (10:07→17:32)
[2019-03-06] MEDS: DICLOFENAC SODIUM GEL 100 GM TUBE TOPICAL SCH ×2 (10:08→21:24)
[2019-03-06] MEDS: AMIODARONE 200 MG TAB PO SCH ×2 (10:08→21:24)
[2019-03-06] MEDS: ANIDULAFUNGIN 100 MG in SODIUM CHLORIDE 0.9% 100 ML IVPB SCH (10:08)
[2019-03-06] MEDS: NYSTATIN 100,000 UNIT/ML SUSP 500,000 UNIT/5 ML CUP PO SCH ×4 (10:09→21:26)
[2019-03-06] MEDS: SODIUM FERRIC GLUCONAT-SUCROSE 125 MG in SODIUM CHLORIDE 0.9% 100 ML IVPB SCH (10:09)
[2019-03-06] MEDS: PIPERACILLIN-TAZOBACTAM 3.375 GM in SODIUM CHLORIDE 0.9% 100 ML IVPB SCH ×2 (10:09→17:40)
[2019-03-06] MEDS: METOPROLOL TARTRATE 50 MG TAB PO SCH ×3 (10:09→21:25)
[2019-03-06] MEDS: LACTATED RINGERS 1,000 ML IV SCH (10:10)
[2019-03-06] MEDS: DILTIAZEM ORAL 60 MG TAB PO SCH ×3 (10:27→21:26)
--- NOTE | 2019-03-06 10:35 | P.PN ---
Subjective Patient is seen in follow-up for acute kidney injury on chronic kidney disease. Renal function is fairly ftable. She is nonoliguric. Underwent exploratory laparotomy with sigmoid colectomy and end colostomy this admission. She pulled out dobhoff. Oral intake is just fair. Denies chest pain or shortness of breath. PEG tube placed yesterday. Hemoglobin improved. Vital signs are stable. General: The patient appeared well nourished and normally developed. HEENT: Head exam is unremarkable. Neck is without jugular venous distension. LUNGS: Lungs are clear to auscultation and percussion. Breath sounds decreased. HEART: Rate and Rhythm are regular. First and second heart sounds normal. No murmurs, rubs or gallops. ABDOMEN: Bowel sounds present. Soft. EXTREMITITES: No clubbing, cyanosis, or edema. Objective - Vital Signs Vital signs: Vital Signs Temp 97.4 F L 03/06/19 08:00 Pulse 75 03/06/19 08:00 Resp 10 L 03/06/19 08:00 BP 156/76 03/06/19 08:00 Pulse Ox 96 03/06/19 08:00 Intake & Output 03/05/19 03/06/19 03/06/19 18:59 06:59 18:59 Intake Total 614 1150 200 Output Total 1125 1580 250 Balance -511 -430 -50 Weight 68.2 kg Intake: IV 304 1150 200 0.9 Normal saline 25 1050 50 Anidulafungin 100 mg In 84 Sodium Chloride 0.9% 100 ml @ 84 mls/hr IVPB DAILY [facility] Rx#:[id number] Lactated Ringers 1,000 ml 0 @ 50 mls/hr IV .Q20H [facility] Rx#:[id number] Piperacillin-Tazobactam 3 75 100 .375 gm In Sodium Chloride 0.9% 100 ml @ 25 mls/hr IVPB Q8HR [facility] Rx# :[id number] Sodium Chloride 0.9% 1, 20 000 ml @ 20 mls/hr IV . Q24H [facility] Rx#:[id number] Sodium Ferric Gluconat- 100 Sucrose 125 mg In Sodium Chloride 0.9% 100 ml @ 100 mls/hr IVPB DAILY [facility] Rx#:[id number] Blood Product 310 Rc As-1 Unit 310 [id number] Output: Drainage 25 Left Buttock 25 Urine 800 1580 250 Stool 300 Other: Voiding Method Indwelling Catheter Indwelling Catheter # Voids 1 - Labs CBC & Chem 7: 03/06/19 04:18 03/06/19 04:18 Labs: Abnormal Lab Results - Last 24 Hours (Table) 03/05/19 03/05/19 03/05/19 Range/Units 07:25 12:13 19:50 RBC 2.90 L (3.80-5.40) m/uL Hgb 8.4 L D (11.4-16.0) gm/dL Hct 25.8 L (34.0-46.0) % RDW 15.6 H (11.5-15.5) % Chloride (98-107) mmol/L BUN (7-17) mg/dL Creatinine (0.52-1.04) mg/dL POC Glucose (mg/dL) 143 H (75-99) mg/dL Crossmatch See Detail 03/05/19 03/06/19 03/06/19 Range/Units 20:44 04:18 04:18 RBC 3.04 L (3.80-5.40) m/uL Hgb 8.8 L (11.4-16.0) gm/dL Hct 26.9 L (34.0-46.0) % RDW (11.5-15.5) % Chloride 108 H (98-107) mmol/L BUN 26 H (7-17) mg/dL Creatinine 1.83 H (0.52-1.04) mg/dL POC Glucose (mg/dL) 150 H (75-99) mg/dL Crossmatch Assessment and Plan Plan: Assessment: 1. Acute kidney injury secondary to ATN. Improving with IV hydration. Renal function fairly stable - creatinine 1.83 today. 2. Chronic kidney disease stage IV with baseline creatinine near 1.7-1.9 secondary to nephrosclerosis and left renal atrophy. 3. S/p exp lap with sigmoid colectomy and end colostomy 02/12/19. 4. Neurogenic bladder. Patient performs self catheterizations 4-5 times daily. Now has Murphy. 5. Metabolic acidosis secondary to acute kidney injury. Stable. 6. Hypertension with chronic kidney disease. Blood pressure currently high but she has not been given her oral meds today. 7. UTI with urine culture positive for Klebsiella and E. coli maintained on antibiotics. 8. Hyponatremia secondary to poor solute intake. Resolved. 9. A-fib maintained on Lopressor and Cardizem. 10. Acute blood loss anemia with hematuria. Anticoagulation held. Status post blood transfusion. Maintained on Aranesp. Iron deficiency noted as well. Plan: Maintain LR at 50 mL an hour. Encouraged oral intake. Avoid nephrotoxins. Continue to monitor renal function and urine output. IV iron 3 doses. Second dose today. Replace potassium.
[2019-03-06] MEDS: MORPHINE SULFATE 4 MG/ML SYRINGE IVP PRN (11:44)
[2019-03-06 13:07] LABS: Glucose,Whole Blood 93 mg/dL (75-99)
[2019-03-06 17:32] LABS: Glucose,Whole Blood 79 mg/dL (75-99)
[2019-03-06] MEDS: hydrALAZINE HCL 20 MG/ML 1 ML VIAL IVP PRN (17:45)
--- NOTE | 2019-03-06 18:23 | P.PN ---
Subjective Progress Note Date: 03/06/19 Principal diagnosis: mechanical obstruction with small bowel and distended abdomen with history of adhesions in the past. The progress note dictated on 02/08/2090 by Patient with history notable bowel movement or stool or passing flatus for more than one week duration x-ray indicating small bowel mechanical obstruction. And patient currently nothing by mouth with NG tube which she did some relief. Her vital sign temperature 90.8 orally F Fahrenheit and her pulse rate 80 and she developed on the surgical floor atrial fibrillation with a rate of 1:30 P 8/m patient transferred to night monitor floor with cardiology consultation which she was started on cardiac exam drip. And seen by Dr. ISATU Zamudio. Respiratory rate 16 and her blood pressure is hypertensive in spite of trial of medication 187/84. She is on nasal cannula 2 L of oxygen with a pulse ox 95%. current laboratories indicating that her WBC 5.3 with a hemoglobin 11.6, her platelet count 414.next is her PTT 32.6with the normal range 30.6. Minimally elevated. Chemistry indicating sodium 144 potassium 3.8 chloride 108 carbon dioxid 28, anion gap 8, BUN 20, creatinine 1.94, EGFR 23 with chronic kidney disease stage IV. Glucose 131AST and LT normal alk phos 137 total protein 6.1 and albumin 3.4 thyroid function is normal and the free T3 some little bit lower than normal that is because of her illness Nephrology evaluation and assessment indicating patient with the UTI Klebsiella pneumonia and E. coli treated according to the culture with the assessment acute kidney injury possibly prerenal improved with hydration. Chronic kidney disease stage IV with the creatinine near 2 secondary to hydronephrosis and left renal atrophy. #3 abdominal pain with questionable diverticulitis and chronic obstruction and NG tube for decompression. Neurogenic bladder and uses a catheterization 4-5 a day metabolic acidosis and she is on bicarb hypertension is controlled and UTI. Physical exam patient status post barium enema and patient the result reviewed by Dr. Sahu and his impression will be discussed with the family. HEENT was negative neck was supple and chest was clear and the heart was currently controlled atrophic And abdomen is tender distended and with the small bowel obstruction extremities no edema. Assessment small bowel obstruction mechanical and high fall to the patient should have surgical intervention. However this is a surgical case and up to the family and the surgeon. His current progress note date of service 03/06/[address] Engel Patient seen and evaluated [id number] Her vital sign indicating temperature 98.3 F oral and her pulse rate ranging from [id number] she is sinus rhythm to paroxysmal atrial fib but compensated. Respiratory rate 16 and her blood pressure was fluctuating currently 169/96 and she is receiving hydralazine 10 mg IV push and if his blood pressure up resistant will start to use hydralazine by mouth 25 mg every 6 hours when necessary if the blood pressure above 140 systolic. Patient had also a PEG tube placement which they will wait for 24 hour can be used for tablet but she is able to take her tablet orally today tomorrow see how the functioning of the PEG tube and start to have the flow with the consultation with the dietitian however we will be starting slowly not subsequently with continuous infusion. Her pulse ox currently stable 96 on 2 L. White count 9.8 and hemoglobin 8.8 with the underlying platelets 358 with moderate hypochromasia. She lost through hematuria blood and she received 1 unit of packed RBCs yesterday. Sodium 141 potassium 3.5 chloride 108, BUN is 26 and creatinine 1.83 with signi ficant improvement with the estimated GFR 25 for non- Her blood sugar now normalized with the ranging between 87-93. On examination in the ICU room 266. Patient is conscious alert oriented however she confused intermittently with the underlying ICU delirium. Head was normocephalic cephalic atraumatic. Pupil is equal reactive bilateral cataract oropharynx she had lower teeth natural upper plate. Oropharynx is negative neck was supple and no JVD no thyromegaly no lymphadenopathy trachea midline. Chest is clear to auscultation and percussion no wheezes no rhonchi's. Heart regular sinus rhythm and intermittent 8 paroxysmal atrial fibrillation. Abdomen she had a PICC line placed today by Dr. Miller will be used tomorrow also 24 hour period she had the colostomy working with the stool in the colostomy bag on the left side. Murphy catheter in place and hematuria appeared to be cleared up. Extremities no edema and positive pulses. Assessment: Currently significant clinical improvement. With underlying recovery with the concern the home feeding the patient and get her up in the protein and albumin and the calorie needed. With the underlying multiple medical problems + Plan: Once patient started to have stability of the feeding through the PEG tube probably will be changed and to be moved to different floor and subsequently a alf for conditioning and rehabilitation and then subsequently she did well she will be going home. Patient however has severe right hip arthritis and [id number] with several testing has been improving that and I am not sure if she H changing her mind later on and accepting surgical intervention or not. Objective - Vital Signs Vital signs: Vital Signs Temp 98.3 F 03/06/19 17:42 Pulse 99 03/06/19 17:42 Resp 16 03/06/19 17:42 BP 169/96 03/06/19 17:42 Pulse Ox 96 03/06/19 17:42 Intake & Output 03/05/19 03/06/19 03/06/19 18:59 06:59 18:59 Intake Total 614 1150 200 Output Total 1125 1580 500 Balance -511 -430 -300 Weight 68.2 kg 68.2 kg Intake: IV 304 1150 200 0.9 Normal saline 25 1050 50 Anidulafungin 100 mg In 84 Sodium Chloride 0.9% 100 ml @ 84 mls/hr IVPB DAILY [facility] Rx#:[id number] Lactated Ringers 1,000 ml 0 @ 50 mls/hr IV .Q20H [facility] Rx#:[id number] Piperacillin-Tazobactam 3 75 100 .375 gm In Sodium Chloride 0.9% 100 ml @ 25 mls/hr IVPB Q8HR [facility] Rx# :[id number] Sodium Chloride 0.9% 1, 20 000 ml @ 20 mls/hr IV . Q24H [facility] Rx#:[id number] Sodium Ferric Gluconat- 100 Sucrose 125 mg In Sodium Chloride 0.9% 100 ml @ 100 mls/hr IVPB DAILY [facility] Rx#:[id number] Blood Product 310 Rc As-1 Unit 310 [id number] Output: Drainage 25 Left Buttock 25 Urine 800 1580 500 Stool 300 Other: Voiding Method Indwelling Catheter Indwelling Catheter Indwelling Catheter # Voids 1 - Labs CBC & Chem 7: 03/06/19 04:18 03/06/19 04:18 Labs: Abnormal Lab Results - Last 24 Hours (Table) 03/05/19 03/05/19 03/06/19 Range/Units 19:50 20:44 04:18 RBC 2.90 L 3.04 L (3.80-5.40) m/uL Hgb 8.4 L D 8.8 L (11.4-16.0) gm/dL Hct 25.8 L 26.9 L (34.0-46.0) % RDW 15.6 H (11.5-15.5) % Chloride (98-107) mmol/L BUN (7-17) mg/dL Creatinine (0.52-1.04) mg/dL POC Glucose (mg/dL) 150 H (75-99) mg/dL 03/06/19 Range/Units 04:18 RBC (3.80-5.40) m/uL Hgb (11.4-16.0) gm/dL Hct (34.0-46.0) % RDW (11.5-15.5) % Chloride 108 H (98-107) mmol/L BUN 26 H (7-17) mg/dL Creatinine 1.83 H (0.52-1.04) mg/dL POC Glucose (mg/dL) (75-99) mg/dL
--- NOTE | 2019-03-06 18:30 | PN ---
PROGRESS NOTE DATE OF SERVICE: 03/06/2019 REASON FOR FOLLOWUP: 1. Ruptured diverticulitis with question abdominal abscess. 2. UTI. INTERVAL HISTORY: The patient is currently afebrile. The patient is status post PEG tube placement. Patient has tolerated the procedure. She remains to be slightly lethargic post procedure. No vomiting or diarrhea reported by the nursing staff. On examination, blood pressure 183/91 with a pulse of 72, temperature 98. She is 96% on 2 L nasal cannula. General description is an elderly female up in the bed in no distress. Respiratory system: Unlabored breathing. Decreased breath sounds at the bases. No wheeze. Heart S1, S2. Regular rate and rhythm. Abdomen soft. No tenderness. LABS: Hemoglobin is 8.1, white count of 9.2, BUN of 26, creatinine 1.83. Repeat urine cultures have been negative. Abdominal cultures were negative. DIAGNOSTIC IMPRESSION AND PLAN: 1. Patient with ruptured diverticulitis. The patient is status post diverting colostomy, sigmoid colectomy and subsequent did have abdominal fluid with concern for abscess, though a CT-guided drainage was negative. The patient currently on Zosyn. Tolerating her tube feeds. Will switch her to a short course of antibiotic down the PEG tube. 2. Positive urine culture with Selin, possible colonization versus UTI, adequately treated. Repeat urine cultures negative. Discontinue Eraxis. MMODL / IJN: [id number] /
[2019-03-06 20:56] LABS: Glucose,Whole Blood 74 mg/dL (75-99)
[2019-03-06] MEDS: ATORVASTATIN 10 MG TAB PO SCH (21:23)
[2019-03-06] MEDS: DULoxetine HCL 60 MG CAPSULE.DR PO SCH (21:25)
[2019-03-07 00:11] LABS: Glucose,Whole Blood 85 mg/dL (75-99)
[2019-03-07] MEDS: PIPERACILLIN-TAZOBACTAM 3.375 GM in SODIUM CHLORIDE 0.9% 100 ML IVPB SCH ×3 (05:01→17:03)
[2019-03-07] MEDS: ACETAMINOPHEN TAB 325 MG TAB PO PRN (05:02)
[2019-03-07] MEDS: MORPHINE SULFATE 4 MG/ML SYRINGE IVP PRN (05:03)
[2019-03-07 06:54] LABS: Glucose,Whole Blood 85 mg/dL (75-99)
[2019-03-07] MEDS: INSULIN ASPART (NovoLOG) 100 UNIT/ML VIAL SQ SCH ×4 (07:37→22:10)
[2019-03-07] MEDS: BUDESONIDE 0.5 MG/2 ML NEBU INHALATION SCH ×2 (08:18→19:44)
[2019-03-07] MEDS: IPRATROPIUM-ALBUTEROL 3 ML NEB INHALATION SCH ×4 (08:18→19:44)
[2019-03-07] MEDS: AMIODARONE 200 MG TAB PO SCH ×2 (08:27→22:08)
[2019-03-07] MEDS: DILTIAZEM ORAL 60 MG TAB PO SCH ×3 (08:27→22:08)
[2019-03-07] MEDS: DRONABINOL 2.5 MG CAP PO SCH ×2 (08:27→17:02)
[2019-03-07] MEDS: NYSTATIN 100,000 UNIT/ML SUSP 500,000 UNIT/5 ML CUP PO SCH ×4 (08:27→22:09)
[2019-03-07] MEDS: SODIUM FERRIC GLUCONAT-SUCROSE 125 MG in SODIUM CHLORIDE 0.9% 100 ML IVPB SCH (08:27)
[2019-03-07] MEDS: METOPROLOL TARTRATE 50 MG TAB PO SCH ×3 (08:27→22:09)
[2019-03-07] MEDS: DICLOFENAC SODIUM GEL 100 GM TUBE TOPICAL SCH ×2 (08:29→22:10)
--- NOTE | 2019-03-07 09:04 | P.PN ---
Subjective Progress Note Date: 03/07/19 Principal diagnosis: Colonic obstruction Patient remains slightly confused. Denies pain. No shortness of breath. Overall had a fairly stable evening. Objective - Vital Signs Vital signs: Vital Signs Temp 97.6 F 03/06/19 23:00 Pulse 98 03/07/19 08:33 Resp 16 03/06/19 23:00 BP 153/89 03/06/19 23:00 Pulse Ox 94 L 03/06/19 23:00 Intake & Output 03/06/19 03/07/19 03/07/19 18:59 06:59 18:59 Intake Total 200 1190 Output Total 500 1325 Balance -300 -135 Weight 68.2 kg 65.3 kg Intake: IV 200 950 0.9 Normal saline 50 850 Piperacillin-Tazobactam 3 100 .375 gm In Sodium Chloride 0.9% 100 ml @ 25 mls/hr IVPB Q8HR [facility] Rx# :[id number] Oral 240 Output: Urine 500 1325 Other: Voiding Method Indwelling Catheter - Exam Abdomen: Soft, nondistended, mild tenderness at PEG tube site, ostomy functioning, incision clean - Labs CBC & Chem 7: 03/06/19 04:18 03/06/19 04:18 Labs: Abnormal Lab Results - Last 24 Hours (Table) 03/06/19 Range/Units 20:55 POC Glucose (mg/dL) 74 L (75-99) mg/dL Assessment and Plan (1) Abdominal pain Narrative/Plan: Patient overall doing better. Begin tube feeds today. Gradually advance as t olerated. Discharge planning for possible ECF earlier this week. Current Visit: Yes Status: Acute Code(s): R10.9 - UNSPECIFIED ABDOMINAL PAIN SNOMED Code(s): 54879352
[2019-03-07] MEDS: LACTATED RINGERS 1,000 ML IV SCH (09:10)
--- NOTE | 2019-03-07 09:44 | P.PN ---
Subjective Patient is seen in follow-up for acute kidney injury on chronic kidney disease. Renal function is fairly stable as of yesterday. She is nonoliguric. Underwent exploratory laparotomy with sigmoid colectomy and end colostomy this admission. Oral intake is just fair. Denies chest pain or shortness of breath. PEG tube placed March 06. Tube feedings will be started today. Vital signs are stable. General: The patient appeared well nourished and normally developed. HEENT: Head exam is unremarkable. Neck is without jugular venous distension. LUNGS: Lungs are clear to auscultation and percussion. Breath sounds decreased. HEART: Rate and Rhythm are regular. First and second heart sounds normal. No murmurs, rubs or gallops. ABDOMEN: Bowel sounds present. Soft. EXTREMITITES: No clubbing, cyanosis, or edema. Objective - Vital Signs Vital signs: Vital Signs Temp 97.6 F 03/06/19 23:00 Pulse 98 03/07/19 08:33 Resp 16 03/06/19 23:00 BP 153/89 03/06/19 23:00 Pulse Ox 94 L 03/06/19 23:00 Intake & Output 03/06/19 03/07/19 03/07/19 18:59 06:59 18:59 Intake Total 200 1190 Output Total 500 1325 Balance -300 -135 Weight 68.2 kg 65.3 kg Intake: IV 200 950 0.9 Normal saline 50 850 Piperacillin-Tazobactam 3 100 .375 gm In Sodium Chloride 0.9% 100 ml @ 25 mls/hr IVPB Q8HR [facility] Rx# :[id number] Oral 240 Output: Urine 500 1325 Other: Voiding Method Indwelling Catheter - Labs CBC & Chem 7: 03/06/19 04:18 03/06/19 04:18 Labs: Abnormal Lab Results - Last 24 Hours (Table) 03/06/19 Range/Units 20:55 POC Glucose (mg/dL) 74 L (75-99) mg/dL Assessment and Plan Plan: Assessment: 1. Acute kidney injury secondary to ATN. Improving with IV hydration. Renal function fairly stable - creatinine 1.83 as of yesterday. 2. Chronic kidney disease stage IV with baseline creatinine near 1.7-1.9 secondary to nephrosclerosis and left renal atrophy. 3. S/p exp lap with sigmoid colectomy and end colostomy 02/12/19. 4. Neurogenic bladder. Patient performs self catheterizations 4-5 times daily. Now has Murphy. 5. Metabolic acidosis secondary to acute kidney injury. Stable. 6. Hypertension with chronic kidney disease. Blood pressure currently high but she has not been given her oral meds today. 7. UTI with urine culture positive for Klebsiella and E. coli maintained on antibiotics. 8. Hyponatremia secondary to poor solute intake. Resolved. 9. A-fib maintained on Lopressor and Cardizem. 10. Acute blood loss anemia with hematuria. Anticoagulation held. Status post blood transfusion. Maintained on Aranesp. Iron deficiency noted as well. Plan: Maintain LR at 50 mL an hour. Encouraged oral intake. Avoid nephrotoxins. Continue to monitor renal function and urine output. IV iron 3 doses. Third dose today. Morning labs pending. Tube feeding to be started today.
--- NOTE | 2019-03-07 09:51 | P.PN ---
Subjective Progress Note Date: 03/07/19 Principal diagnosis: Acute bowel obstruction status post laparotomy with extensive lysis of adhesions and sigmoid colectomy and end colostomy. The patient is seen today 03/07/2019 in follow-up in the intensive care unit. She remains somewhat confused to time and place. She is arousable. She is currently denying any significant pain or discomfort. She's been seen by [facility]. The plan is for tube feedings to be started today. Abdominal drain has been removed. Dressing is dry and intact. Ostomy functioning. She is maintaining good O2 saturations in the 90s on 2 L/m per nasal cannula. She is continued on bronchodilators and Zosyn. Objective - Vital Signs Vital signs: Vital Signs Temp 97.6 F 03/06/19 23:00 Pulse 98 03/07/19 08:33 Resp 16 03/06/19 23:00 BP 153/89 03/06/19 23:00 Pulse Ox 94 L 03/06/19 23:00 Intake & Output 03/06/19 03/07/19 03/07/19 18:59 06:59 18:59 Intake Total 200 1190 Output Total 500 1325 Balance -300 -135 Weight 68.2 kg 65.3 kg Intake: IV 200 950 0.9 Normal saline 50 850 Piperacillin-Tazobactam 3 100 .375 gm In Sodium Chloride 0.9% 100 ml @ 25 mls/hr IVPB Q8HR [facility] Rx# :[id number] Oral 240 Output: Urine 500 1325 Other: Voiding Method Indwelling Catheter - Exam GENERAL EXAM: Alert, pleasant, 83-year-old female patient, she is on 2 L nasal cannula, comfortable in no apparent distress. HEAD: Normocephalic/atraumatic. EYES: Normal reaction of pupils, equal size. Conjunctiva pink, sclera white. NOSE: Clear with pink turbinates. Dobbhoff is in place, tolerating tube feeds THROAT: No erythema or exudates. NECK: No masses, no JVD, no thyroid enlargement, no adenopathy. CHEST: No chest wall deformity. Symmetrical expansion. LUNGS: Equal air entry with clear anteriorly, crackles in the posterior bases. CVS: Irregular rate and rhythm, normal S1 and S2, no gallops, no murmurs, no rubs ABDOMEN: Soft, nontender. No hepatosplenomegaly, normal bowel sounds, no guarding or rigidity. Midline incision with maggy intact, colostomy with formed stool EXTREMITIES: No clubbing, no edema, no cyanosis, 2+ pulses and upper and lower extremities. MUSCULOSKELETAL: Muscle strength and tone normal. SPINE: No scoliosis or deformity SKIN: No rashes CENTRAL NERVOUS SYSTEM: No focal deficits, tone is normal in all 4 extremities. PSYCHIATRIC: Alert and oriented -2. Appropriate affect. Intact judgment and insight. - Labs CBC & Chem 7: 03/06/19 04:18 03/06/19 04:18 Labs: Abnormal Lab Results - Last 24 Hours (Table) 03/06/19 Range/Units 20:55 POC Glucose (mg/dL) 74 L (75-99) mg/dL Assessment and Plan Assessment: 1 Abdominal discomfort with constipation and colon obstruction status post posterior laparotomy, extensive lysis of adhesions, sigmoid colectomy, end colo stomy. Is post PEG tube placement on 03/06/2019. Plans for tube feedings to be initiated later this morning. 2 Large fluid collection in the pelvis could be related to an abscess, procedure on 02/26/2019 with 20 mL of serous fluid was removed and sent for pathology. Drainage tube is continued today. 3 Acute hypoxic respiratory failure in the immediate postoperative period requiring BiPAP support. Currently on 4L nasal cannula. 4 Atrial fibrillation with a rapid ventricular response initially on a heparin drip. Currently on hold due to surgery. Currently in sinus rhythm. The plan is for initiation of Eliquis once cleared surgically. 5 Urinary tract infection secondary to Klebsiella pneumoniae and E. coli 6 Lifelong nonsmoker. 7 Hypertension. 8 Hyperlipidemia. 9 Acute on chronic renal failure. Plan: The patient was seen and evaluated by . She is currently MedSurg overflow. We'll increase her activity as tolerated. Physical therapy is working with the patient. In the chair today. He is to be initiated today per PEG tube Continue to encourage the use of the incentive spirometer and cough and deep breathing exercises. We'll continue to follow and make further recommendations based on her clinical status. I, the cosigning physician, performed a history & physical examination of the patient. Lungs sounds are clear anteriorly, crackles in the posterior bases. Maintaining good O2 saturations in the 90s on 2L nasal cannula. I discussed the assessment and plan of care with my nurse practitioner, Jenelle Heaton. I attest to the above consultation as dictated by her.
[2019-03-07 11:02] LABS: Magnesium 1.8 mg/dL (1.6-2.3); Potassium 3.3 mmol/L (3.5-5.1)
[2019-03-07] MEDS: POTASSIUM BICARBONATE/CIT AC 20 MEQ TABLET.EFF PO SCH ×2 (11:39→12:27)
[2019-03-07 11:43] LABS: Glucose,Whole Blood 101 mg/dL (75-99)
--- NOTE | 2019-03-07 12:38 | P.PN ---
Subjective Progress Note Date: 03/07/19 Principal diagnosis: mechanical obstruction with small bowel and distended abdomen with history of adhesions in the past. The progress note dictated on 02/08/2090 by Patient with history notable bowel movement or stool or passing flatus for more than one week duration x-ray indicating small bowel mechanical obstruction. And patient currently nothing by mouth with NG tube which she did some relief. Her vital sign temperature 90.8 orally F Fahrenheit and her pulse rate 80 and she developed on the surgical floor atrial fibrillation with a rate of 1:30 P 8/m patient transferred to compliance monitor floor with cardiology consultation which she was started on cardiac exam drip. And seen by Dr. ISATU Zamudio. Respiratory rate 16 and her blood pressure is hypertensive in spite of trial of medication 187/84. She is on nasal cannula 2 L of oxygen with a pulse ox 95%. current laboratories indicating that her WBC 5.3 with a hemoglobin 11.6, her platelet count 414.next is her PTT 32.6with the normal range 30.6. Minimally elevated. Chemistry indicating sodium 144 potassium 3.8 chloride 108 carbon dioxid 28, anion gap 8, BUN 20, creatinine 1.94, EGFR 23 with chronic kidney disease stage IV. Glucose 131AST and LT normal alk phos 137 total protein 6.1 and albumin 3.4 thyroid function is normal and the free T3 some little bit lower than normal that is because of her illness Nephrology evaluation and assessment indicating patient with the UTI Klebsiella pneumonia and E. coli treated according to the culture with the assessment acute kidney injury possibly prerenal improved with hydration. Chronic kidney disease stage IV with the creatinine near 2 secondary to hydronephrosis and left renal atrophy. #3 abdominal pain with questionable diverticulitis and chronic obstruction and NG tube for decompression. Neurogenic bladder and uses a catheterization 4-5 a day metabolic acidosis and she is on bicarb hypertension is controlled and UTI. Physical exam patient status post barium enema and patient the result reviewed by Dr. Sahu and his impression will be discussed with the family. HEENT was negative neck was supple and chest was clear and the heart was currently controlled atrophic And abdomen is tender distended and with the small bowel obstruction extremities no edema. Assessment small bowel obstruction mechanical and high fall to the patient should have surgical intervention. However this is a surgical case and up to the family and the surgeon. Dictation progress note date of service 03/07/[address] Engel Patient seen and evaluated [id number] She has market clinical improvement, she will have start now the feeding tube t hrough the PEG tube started with 20 mL an hour followed by the upper max 55 mL an hour with the gradual increase depend on her acceptance in the stomach. Vital sign: Temperature 98.1 oral of her heart rate ranging between 90 and 80 with the paroxysmal atrial flutter and return to sinus. She is wheezing comfortable 18/m nonlabored. Her blood pressure 154/90 with the oxygen saturation 100% on 2 L. Patient seen in ICU 266 room Laboratories: Sodium 141 and potassium 3.3 will be covered with the protocol carbon dioxide 22 anion gap 11 BUN 20, and creatinine 1.65. Her glucose 101 with a calcium of 9 magnesium 1.8. On the examination: Conscious alert intermittently confused. The head was normocephalic atraumatic he will 2 have eating but not enough for nutritional support. Pupil was equal reactive she had also underlying cataract implant oropharynx is negative neck was supple. Chest was increased anteroposterior diameter with the normal breath sounds she had a right hemidiaphragm elevation but no cough or expectoration. The heart underlying history of hypertension with hypertensive heart disease. And currently on anticoagulant as well his followed by cardiology and critical care and nephrology and infectious disease Dr. Bernardo as well as the surgeon Dr. Miller. Abdomen stools in the colostomy bag. Murphy catheter in place with currently. And no hematuria she is healing, PEG tube in place will be started at rate of 20 mL an hour. Extremities no edema. Positive pulses. CBC on 03/06/19 indicating WBC of 9.8 and hemoglobin 8.8 she received only one units of packed RBCs when the hemoglobin dropped to 6.4. Her platelet count has been recovered and 358 currently and currently she had hypochromasia Assessment #1 recovering from colonic obstruction with colostomy as well small bowel obstruction. #2 underlying difficulties recovery with hypoproteinemia hypoalbuminemia and severe necessitating TPN currently had the PEG tube placed on 03/06/19. #3 she had advanced degenerative arthritis of the right hip [id number] is walking difficulties. Patient refused in the past hip replacement. #4 anemia associated with chronic kidney disease as well as surgery. #5 chronic kidney disease stage IV with the atrophy of the left kidney, right hydronephrosis hydroureter, hematuria, neurogenic bladder with a history of self-catheterization, patient currently and Murphy catheter. #6 history of hyperparathyroidism. #7 hypertension was hypertensive heart disease. Plan #1 continue the current treatment and plan. #2 once she can tolerate the PEG tube feeding probably she will be out of the critical care and ICU. #3 future plan for retirement rehabilitation and conditioning prolongated comfortable way to the patient. Objective - Vital Signs Vital signs: Vital Signs Temp 98.1 F 03/07/19 07:00 Pulse 100 03/07/19 12:14 Resp 18 03/07/19 08:00 BP 154/90 03/07/19 07:00 Pulse Ox 100 03/07/19 07:00 Intake & Output 03/06/19 03/07/19 03/07/19 18:59 06:59 18:59 Intake Total 200 1190 Output Total 500 1325 600 Balance -300 -135 -600 Weight 68.2 kg 65.3 kg 65.3 kg Intake: IV 200 950 0.9 Normal saline 50 850 Piperacillin-Tazobactam 3 100 .375 gm In Sodium Chloride 0.9% 100 ml @ 25 mls/hr IVPB Q8HR [facility] Rx# :[id number] Oral 240 Output: Urine 500 1325 600 Other: Voiding Method Indwelling Catheter Indwelling Catheter - Labs CBC & Chem 7: 03/06/19 04:18 03/07/19 10:02 Labs: Abnormal Lab Results - Last 24 Hours (Table) 03/06/19 03/07/19 03/07/19 Range/Units 20:55 10:02 11:42 Potassium 3.3 L (3.5-5.1) mmol/L Chloride 108 H (98-107) mmol/L BUN 20 H (7-17) mg/dL Creatinine 1.65 H (0.52-1.04) mg/dL POC Glucose (mg/dL) 74 L 101 H (75-99) mg/dL
[2019-03-07 17:03] LABS: Glucose,Whole Blood 105 mg/dL (75-99)
--- NOTE | 2019-03-07 18:41 | PN ---
PROGRESS NOTE DATE OF SERVICE: 03/07/2019. REASON FOR FOLLOWUP: Ruptured diverticulitis with an abscess and UTI. INTERVAL HISTORY: The patient is currently afebrile. The patient has been breathing comfortably. The patient denies having any chest pain, shortness of breath or cough. No nausea, vomiting, abdominal pain. She has been started on tube feeds. PHYSICAL EXAMINATION: Blood pressure 140/85 with a pulse of 80, temperature 98.2. She is 95% on 2 L nasal cannula. General description is an elderly female up in the chair in no distress. RESPIRATORY SYSTEM: Unlabored breathing with decreased breath sounds at the base. No wheeze. HEART: S1, S2. Regular rate and rhythm. ABDOMEN: Soft. No tenderness. LABS: BUN of 20, creatinine 1.65. DIAGNOSTIC IMPRESSION AND PLAN: Patient with acute sigmoid diverticulitis, perforated status post sigmoid colectomy and diverting colostomy with abdominal fluid collection. Cultures of possible abscess, though, have been negative. The patient is currently on Zosyn. Transition to a short course of oral antibiotic down the PEG tube once she tolerates her tube feeds and will monitor clinical course closely. MMODL / IJN: [id number] /
[2019-03-07 21:59] LABS: Glucose,Whole Blood 140 mg/dL (75-99)
[2019-03-07] MEDS: ATORVASTATIN 10 MG TAB PO SCH (22:08)
[2019-03-07] MEDS: DULoxetine HCL 60 MG CAPSULE.DR PO SCH (22:09)
[2019-03-08] MEDS: MORPHINE SULFATE 4 MG/ML SYRINGE IVP PRN (02:42)
[2019-03-08] MEDS: PIPERACILLIN-TAZOBACTAM 3.375 GM in SODIUM CHLORIDE 0.9% 100 ML IVPB SCH ×3 (02:43→17:37)
[2019-03-08 06:48] LABS: Glucose,Whole Blood 153 mg/dL (75-99)
[2019-03-08] MEDS: INSULIN ASPART (NovoLOG) 100 UNIT/ML VIAL SQ SCH ×4 (07:11→20:43)
[2019-03-08] MEDS: DRONABINOL 2.5 MG CAP PO SCH ×2 (07:12→17:17)
[2019-03-08] MEDS: METOPROLOL TARTRATE 50 MG TAB PO SCH ×3 (08:33→21:02)
[2019-03-08] MEDS: DILTIAZEM ORAL 60 MG TAB PO SCH ×3 (08:33→21:02)
[2019-03-08] MEDS: AMIODARONE 200 MG TAB PO SCH ×2 (08:33→20:54)
[2019-03-08] MEDS: DICLOFENAC SODIUM GEL 100 GM TUBE TOPICAL SCH ×2 (08:33→20:55)
[2019-03-08] MEDS: LACTATED RINGERS 1,000 ML IV SCH ×2 (08:33→23:44)
[2019-03-08] MEDS: NYSTATIN 100,000 UNIT/ML SUSP 500,000 UNIT/5 ML CUP PO SCH ×4 (08:34→20:57)
[2019-03-08] MEDS: IPRATROPIUM-ALBUTEROL 3 ML NEB INHALATION SCH ×4 (09:01→21:37)
[2019-03-08] MEDS: BUDESONIDE 0.5 MG/2 ML NEBU INHALATION SCH ×2 (09:01→21:37)
[2019-03-08] MEDS: SODIUM FERRIC GLUCONAT-SUCROSE 125 MG in SODIUM CHLORIDE 0.9% 100 ML IVPB SCH (09:14)
--- NOTE | 2019-03-08 09:41 | P.PN ---
Subjective Patient is seen in follow-up for acute kidney injury on chronic kidney disease. Renal function stable. She is nonoliguric. Underwent exploratory laparotomy with sigmoid colectomy and end colostomy this admission. Oral intake is just fair. Denies chest pain or shortness of breath. PEG tube placed March 06 and tube feeds were started yesterday. Vital signs are stable. General: The patient appeared well nourished and normally developed. HEENT: Head exam is unremarkable. Neck is without jugular venous distension. LUNGS: Lungs are clear to auscultation and percussion. Breath sounds decreased. HEART: Rate and Rhythm are regular. First and second heart sounds normal. No murmurs, rubs or gallops. ABDOMEN: Bowel sounds present. Soft. EXTREMITITES: No clubbing, cyanosis, or edema. Objective - Vital Signs Vital signs: Vital Signs Temp 98.1 F 03/08/19 07:00 Pulse 63 03/08/19 09:16 Resp 24 03/08/19 07:00 BP 168/80 03/08/19 07:00 Pulse Ox 98 03/08/19 07:00 Intake & Output 03/07/19 03/08/19 03/08/19 18:59 06:59 18:59 Intake Total 470 1320 Output Total 1300 450 Balance -830 870 Weight 65.3 kg Intake: IV 50 580 Lactated Ringers 1,000 ml 50 400 @ 50 mls/hr IV .Q20H [facility] Rx#:[id number] Piperacillin-Tazobactam 3 100 .375 gm In Sodium Chloride 0.9% 100 ml @ 25 mls/hr IVPB Q8HR [facility] Rx# :[id number] Sodium Chloride 0.9% 1, 80 000 ml @ 20 mls/hr IV . Q24H [facility] Rx#:[id number] Oral 200 Tube Feeding 220 640 Other 100 Output: Urine 1300 450 Other: Voiding Method Indwelling Catheter Indwelling Catheter # Voids 1 - Labs CBC & Chem 7: 03/06/19 04:18 03/07/19 10:02 Labs: Abnormal Lab Results - Last 24 Hours (Table) 03/07/19 03/07/19 03/07/19 Range/Units 10:02 11:42 17:02 Potassium 3.3 L (3.5-5.1) mmol/L Chloride 108 H (98-107) mmol/L BUN 20 H (7-17) mg/dL Creatinine 1.65 H (0.52-1.04) mg/dL POC Glucose (mg/dL) 101 H 105 H (75-99) mg/dL 03/07/19 03/08/19 Range/Units 21:57 06:47 Potassium (3.5-5.1) mmol/L Chloride (98-107) mmol/L BUN (7-17) mg/dL Creatinine (0.52-1.04) mg/dL POC Glucose (mg/dL) 140 H 153 H (75-99) mg/dL Assessment and Plan Plan: Assessment: 1. Acute kidney injury secondary to ATN. Improving with IV hydration. Renal function fairly stable - creatinine 1.65 as of yesterday. 2. Chronic kidney disease stage IV with baseline creatinine near 1.7-1.9 secondary to nephrosclerosis and left renal atrophy. 3. S/p exp lap with sigmoid colectomy and end colostomy 02/12/19. 4. Neurogenic bladder. Patient performs self catheterizations 4-5 times daily. Now has Murphy. 5. Metabolic acidosis secondary to acute kidney injury. Stable. 6. Hypertension with chronic kidney disease. Blood pressure currently high but she has not been given her oral meds today. 7. UTI with urine culture positive for Klebsiella and E. coli maintained on antibiotics. 8. Hyponatremia secondary to poor solute intake. Resolved. 9. A-fib maintained on Lopressor and Cardizem. 10. Acute blood loss anemia with hematuria. Improved. Status post IV iron. Maintained on Aranesp. 11. Hypokalemia from poor oral intake. Status post placement. Magnesium normal. Plan: Maintain LR at 50 mL an hour - can Hep-Lock once tube feeding at goal. Avoid nephrotoxins. Continue to monitor renal function and urine output.
--- NOTE | 2019-03-08 10:07 | P.PN ---
Subjective Progress Note Date: 03/08/19 Principal diagnosis: Colonic obstruction Patient appears well this morning. Denies pain. Tolerating tube feeds now at goal. Good ostomy function. Still somewhat confused. Objective - Vital Signs Vital signs: Vital Signs Temp 98.1 F 03/08/19 07:00 Pulse 63 03/08/19 09:16 Resp 24 03/08/19 07:00 BP 168/80 03/08/19 07:00 Pulse Ox 98 03/08/19 07:00 Intake & Output 03/07/19 03/08/19 03/08/19 18:59 06:59 18:59 Intake Total 470 1320 Output Total 1300 450 Balance -830 870 Weight 65.3 kg Intake: IV 50 580 Lactated Ringers 1,000 ml 50 400 @ 50 mls/hr IV .Q20H [facility] Rx#:[id number] Piperacillin-Tazobactam 3 100 .375 gm In Sodium Chloride 0.9% 100 ml @ 25 mls/hr IVPB Q8HR [facility] Rx# :[id number] Sodium Chloride 0.9% 1, 80 000 ml @ 20 mls/hr IV . Q24H [facility] Rx#:[id number] Oral 200 Tube Feeding 220 640 Other 100 Output: Urine 1300 450 Other: Voiding Method Indwelling Catheter Indwelling Catheter Indwelling Catheter # Voids 1 - Exam Abdomen: Soft, nondistended, ostomy function, PEG tube intact - Labs CBC & Chem 7: 03/06/19 04:18 03/07/19 10:02 Labs: Abnormal Lab Results - Last 24 Hours (Table) 03/07/19 03/07/19 03/07/19 Range/Units 10:02 11:42 17:02 Potassium 3.3 L (3.5-5.1) mmol/L Chloride 108 H (98-107) mmol/L BUN 20 H (7-17) mg/dL Creatinine 1.65 H (0.52-1.04) mg/dL POC Glucose (mg/dL) 101 H 105 H (75-99) mg/dL 03/07/19 03/08/19 Range/Units 21:57 06:47 Potassium (3.5-5.1) mmol/L Chloride (98-107) mmol/L BUN (7-17) mg/dL Creatinine (0.52-1.04) mg/dL POC Glucose (mg/dL) 140 H 153 H (75-99) mg/dL Assessment and Plan (1) Abdominal pain Narrative/Plan: Patient overall doing fairly well. Continue tube feeds at goal. As long she continues to tolerate would begin arrangements for rehab placement. Current Visit: Yes Status: Acute Code(s): R10.9 - UNSPECIFIED ABDOMINAL PAIN SNOMED Code(s): 02275976
[2019-03-08] MEDS: APIXABAN 2.5 MG TABLET PO SCH ×2 (10:08→20:55)
--- NOTE | 2019-03-08 10:56 | P.PN ---
Subjective Progress Note Date: 03/08/19 On today's evaluation of 03/08/2019 the patient is sitting up on a recliner. On and off confused. Tolerating tube feeds. The patient has adequate output and had colostomy. The drain was taken out yesterday without any complications. She remains on IV Zosyn. She is on 2 L of oxygen by nasal cannula. She is post sigmoid colectomy and end colostomy. Her cardiac rhythm is sinus rhythm although she has paroxysmal atrial fibrillation. She is on long-term anticoagulation. No other issues for now. She is working with physical therapy. She'll be transferred out of the intensive care unit. She'll feeds are to 4 multivitamin 1.2 at the rate of 55 mL an hour. No major edema in lower extremities. Murphy catheter still in place. She is using incentive spirometer peaches much more alert and lucid on today's evaluation. Objective - Vital Signs Vital signs: Vital Signs Temp 98.1 F 03/08/19 07:00 Pulse 63 03/08/19 09:16 Resp 24 03/08/19 07:00 BP 168/80 03/08/19 07:00 Pulse Ox 98 03/08/19 07:00 Intake & Output 03/07/19 03/08/19 03/08/19 18:59 06:59 18:59 Intake Total 470 1320 Output Total 1300 450 Balance -830 870 Weight 65.3 kg Intake: IV 50 580 Lactated Ringers 1,000 ml 50 400 @ 50 mls/hr IV .Q20H [facility] Rx#:[id number] Piperacillin-Tazobactam 3 100 .375 gm In Sodium Chloride 0.9% 100 ml @ 25 mls/hr IVPB Q8HR [facility] Rx# :[id number] Sodium Chloride 0.9% 1, 80 000 ml @ 20 mls/hr IV . Q24H [facility] Rx#:[id number] Oral 200 Tube Feeding 220 640 Other 100 Output: Urine 1300 450 Other: Voiding Method Indwelling Catheter Indwelling Catheter Indwelling Catheter # Voids 1 - Exam GENERAL EXAM: Alert, pleasant 83-year-old female patient, on 2 L high flow nasal cannula, comfortable in no apparent distress. HEAD: Normocephalic. EYES: Normal reaction of pupils, equal size. NOSE: Nasogastric tube secured in place. Clear with pink turbinates. THROAT: No erythema or exudates. NECK: No masses, no JVD. CHEST: No chest wall deformity. LUNGS: Equal air entry with no crackles, wheeze, rhonchi or dullness. CVS: S1 and S2 normal with no audible murmur, regular rhythm. ABDOMEN: Midline incision with maggy intact, colostomy functioning. Patient has a PEG tube which is functional and the site is dry clean and intact. She has adequate bowel sounds for now. SPINE: No scoliosis or deformity SKIN: No rashes CENTRAL NERVOUS SYSTEM: No focal deficits, tone is normal in all 4 extremities. EXTREMITIES: There is no peripheral edema. No clubbing, no cyanosis. Peripheral pulses are intact. - Labs CBC & Chem 7: 03/06/19 04:18 03/07/19 10:02 Labs: Abnormal Lab Results - Last 24 Hours (Table) 03/07/19 03/07/19 03/07/19 Range/Units 10:02 11:42 17:02 Potassium 3.3 L (3.5-5.1) mmol/L Chloride 108 H (98-107) mmol/L BUN 20 H (7-17) mg/dL Creatinine 1.65 H (0.52-1.04) mg/dL POC Glucose (mg/dL) 101 H 105 H (75-99) mg/dL 03/07/19 03/08/19 Range/Units 21:57 06:47 Potassium (3.5-5.1) mmol/L Chloride (98-107) mmol/L BUN (7-17) mg/dL Creatinine (0.52-1.04) mg/dL POC Glucose (mg/dL) 140 H 153 H (75-99) mg/dL Assessment and Plan Plan: 1 Abdominal discomfort with constipation and colon obstruction status post posterior laparotomy, extensive lysis of adhesions, sigmoid colectomy, end colostomy. The patient is postop day #16. Noted the patient had also a PEG tube placement on 03/06/2019. She'll feeds have been initiated and the patient is tolerating the tube feeds without any major difficulties. 2 Large fluid collection in the pelvis could be related to an abscess, procedure on 02/26/2019. Drainage tube was discontinued and the abscess has improved considerably based on the most recent follow-up CAT scan of the abdom en. 3 Acute hypoxic respiratory failure in the immediate postoperative period requiring BiPAP support. Currently on2 L nasal cannula. 4 Atrial fibrillation with a rapid ventricular response initially on a heparin drip. Currently on hold due to surgery. Currently in sinus rhythm. He Eliquis has been reinitiated 5 Urinary tract infection secondary to Klebsiella pneumoniae and E. coli 6 Lifelong nonsmoker. 7 Hypertension. 8 Hyperlipidemia. 9 Acute on chronic renal failure. The creatinine has dropped down to 1.6 from yesterday. Plan Continue supportive care Enteral feeding for nutritional support IV Zosyn Briannequis has been reinitiated for long-term anticoagulation More awake and alert and less confused compared to yesterday Continue physical therapy Transfer to a medical floor Also advanced oral intake as tolerated depending on the patient's appetite and inability to swallow.
--- NOTE | 2019-03-08 11:31 | P.PN ---
Subjective Progress Note Date: 03/08/19 Principal diagnosis: mechanical obstruction with small bowel and distended abdomen with history of adhesions in the past. The progress note dictated on 02/08/2090 by Patient with history notable bowel movement or stool or passing flatus for more than one week duration x-ray indicating small bowel mechanical obstruction. And patient currently nothing by mouth with NG tube which she did some relief. Her vital sign temperature 90.8 orally F Fahrenheit and her pulse rate 80 and she developed on the surgical floor atrial fibrillation with a rate of 1:30 P 8/m patient transferred to environmental monitoring technician floor with cardiology consultation which she was started on cardiac exam drip. And seen by Dr. ISATU Zamudio. Respiratory rate 16 and her blood pressure is hypertensive in spite of trial of medication 187/84. She is on nasal cannula 2 L of oxygen with a pulse ox 95%. current laboratories indicating that her WBC 5.3 with a hemoglobin 11.6, her platelet count 414.next is her PTT 32.6with the normal range 30.6. Minimally elevated. Chemistry indicating sodium 144 potassium 3.8 chloride 108 carbon dioxid 28, anion gap 8, BUN 20, creatinine 1.94, EGFR 23 with chronic kidney disease stage IV. Glucose 131AST and LT normal alk phos 137 total protein 6.1 and albumin 3.4 thyroid function is normal and the free T3 some little bit lower than normal that is because of her illness Nephrology evaluation and assessment indicating patient with the UTI Klebsiella pneumonia and E. coli treated according to the culture with the assessment acute kidney injury possibly prerenal improved with hydration. Chronic kidney disease stage IV with the creatinine near 2 secondary to hydronephrosis and left renal atrophy. #3 abdominal pain with questionable diverticulitis and chronic obstruction and NG tube for decompression. Neurogenic bladder and uses a catheterization 4-5 a day metabolic acidosis and she is on bicarb hypertension is controlled and UTI. Physical exam patient status post barium enema and patient the result reviewed by Dr. Sahu and his impression will be discussed with the family. HEENT was negative neck was supple and chest was clear and the heart was currently controlled atrophic And abdomen is tender distended and with the small bowel obstruction extremities no edema. Assessment small bowel obstruction mechanical and high fall to the patient should have surgical intervention. However this is a surgical case and up to the family and the surgeon. Dictation progress note date of service 03/08/2019. Dictation by Dr. Engel. Vital sign: Temperature 98.1 F oral, heart rate 65/m with sinus rhythm, pulse rate 62 respiratory rate 24 nonlabored. Blood pressure 168/80 saturation 98% on nasal cannula 2 L. Patient have controlled pain, [place] 12 g skin patch has been discontinued yesterday. Laboratories she had potassium 3.3 on 03/07/19 was supplemented per protocol however we don't have lab today to assess. Her BUN 20, creatinine 1.65 which is significantly improved with the estimated GFR for non- 29 she is telling stage IV chronic kidney disease. Blood glucose has been continue to be stable and covered with insulin, calcium and magnesium is normal. Patient appears to be tolerating the PICC tube feeding well. Patient is still have Murphy catheter which she had no hematuria, she has neurogenic bladder and she used to do self catheterization. She is on antibiotic. And antifungal, she had pelvic abscess and also that was covered. Blood culture was negative. And urine cultures subsequently indicating Selni albicans. Patient seen by pulmonary and critical care Dr. Shannon as well as Dr. Tsai infectious disease, Dr. Sahu is a surgeon, and Dr. ISATU Zamudio/Mihir is her land law examiner. Patient is conscious alert intermittent confused was delirium however she much improved generally and clinically. Her HEENT. Head was normocephalic and atraumatic pupil was equal reactive she had bilateral cataract oropharynx she has only natural teas in the lower jaw and she uses plate in the upper jaw and no fascial asymmetry. Neck was supple no JVD no thyromegaly no lymphadenopathy. She has hard of hearing bilaterally she uses a hearing aid. And we will request from the family to bring her hearing aid Chest: Clear to auscultation percussion she had a right hemidiaphragm. Heart currently regular sinus with a history of paroxysmal atrial fibrillation. Abdomen positive bowel sounds and she has left colostomy has been with the stools, she has. Peg tube with infusing nutritional support. she has a Murphy catheter in place. No hematuria. Extremities no edema and positive pulses. Neurologically: Negative musculoskeletal she had advanced degenerative arthritis of the right hip. Assessment: #1 significant improvement clinically with the current treatment. #2 status post Exploratory laparotomy with obstruction of the colon as well as small bowel associated also with distention and status post colostomy bag on the left side and. #3 chronic kidney disease stage IV has been stabilized with the help of nephrology Dr. Gautam and/Dr. Arrington. #4 atrial fibrillation with RVR currently improved to sinus rhythm with the help with the land law examiner. #5 deconditioning and need for further rehabilitation. #6 hydroureter hydronephrosis on the right sided with the atrophy of the left kidney. Plan: #1 supported with nutritional support with PEG tube feeding #2 rehabilitation with physical therapy. #[address] [facility] for extended rehab with the continue the feeding. #4 clearance from critical care and foreign law consultant to be moved to environmental monitoring technician floor if patient stable to them as well as to the surgeon Dr. Sahu. Objective - Vital Signs Vital signs: Vital Signs Temp 98.1 F 03/08/19 07:00 Pulse 63 03/08/19 09:16 Resp 24 03/08/19 07:00 BP 168/80 03/08/19 07:00 Pulse Ox 98 03/08/19 07:00 Intake & Output 03/07/19 03/08/19 03/08/19 18:59 06:59 18:59 Intake Total 470 1320 Output Total 1300 450 Balance -830 870 Weight 65.3 kg Intake: IV 50 580 Lactated Ringers 1,000 ml 50 400 @ 50 mls/hr IV .Q20H [facility] Rx#:[id number] Piperacillin-Tazobactam 3 100 .375 gm In Sodium Chloride 0.9% 100 ml @ 25 mls/hr IVPB Q8HR [facility] Rx# :[id number] Sodium Chloride 0.9% 1, 80 000 ml @ 20 mls/hr IV . Q24H [facility] Rx#:[id number] Oral 200 Tube Feeding 220 640 Other 100 Output: Urine 1300 450 Other: Voiding Method Indwelling Catheter Indwelling Catheter Indwelling Catheter # Voids 1 - Labs CBC & Chem 7: 03/06/19 04:18 03/07/19 10:02 Labs: Abnormal Lab Results - Last 24 Hours (Table) 03/07/19 03/07/19 03/07/19 Range/Units 11:42 17:02 21:57 POC Glucose (mg/dL) 101 H 105 H 140 H (75-99) mg/dL 03/08/19 Range/Units 06:47 POC Glucose (mg/dL) 153 H (75-99) mg/dL
[2019-03-08 11:40] LABS: Glucose,Whole Blood 150 mg/dL (75-99)
[2019-03-08] MEDS: hydrALAZINE HCL 20 MG/ML 1 ML VIAL IVP PRN (16:39)
[2019-03-08 16:58] LABS: Glucose,Whole Blood 170 mg/dL (75-99)
--- NOTE | 2019-03-08 20:18 | PN ---
PROGRESS NOTE DATE OF SERVICE: 03/08/2019 REASON FOR FOLLOWUP: Perforated diverticulitis. Question abdominal abscess and UTI. INTERVAL HISTORY: The patient is currently afebrile. Patient has been breathing comfortably. The patient is hemodynamically stable, not on pressor support. Denies having any chest pain or any cough. No abdominal pain. No diarrhea reported. EXAMINATION: Blood pressure is 150/80 with a pulse of 75, temperature 98.1. She is 98% on 2 L nasal cannula. General description is an elderly female up in the bed in no distress. Respiratory system: Unlabored breathing. Clear to auscultation anteriorly. Heart S1, S2. Regular rate and rhythm. Abdomen: Soft, no tenderness. LABS: BUN of 20, creatinine 1.65, white count is 9.8. DIAGNOSTIC IMPRESSION AND PLAN: Patient with acute sigmoid diverticulitis with perforation, status post sigmoid colectomy and diverting colostomy with normal fluid collection and concern for abscess that has been drained. Culture has been negative. The patient did get a PEG tube and has been tolerating it so far. We will switch over the antibiotic to Augmentin and monitor clinical course closely. Continue support care. MMODL / IJN: [id number] /
[2019-03-08 20:33] LABS: Glucose,Whole Blood 121 mg/dL (75-99)
[2019-03-08] MEDS: ATORVASTATIN 10 MG TAB PO SCH (20:55)
[2019-03-08] MEDS: AMOXIC-POT CLAV 500-125 MG 1 EACH TAB PEG/G-TUBE SCH (20:55)
[2019-03-08] MEDS: DULoxetine HCL 60 MG CAPSULE.DR PO SCH (20:56)
[2019-03-08] MEDS: MELATONIN 3 MG TABLET PO PRN (22:12)
[2019-03-08] MEDS: ACETAMINOPHEN TAB 325 MG TAB PO PRN (22:13)
[2019-03-08] MEDS: HYDROcodone/APAP 5-325MG 1 EACH TAB PO PRN (23:43)
[2019-03-09 06:06] LABS: Anisocytosis Slight; Basophils # (A) 0.1 k/uL (0-0.2); Basophils % (A) 1 %; Eosinophils # (A) 0.6 k/uL (0-0.7); Eosinophils % (A) 6 %; HCT 26.9 % (34.0-46.0); HGB 8.3 gm/dL (11.4-16.0); Hypochromasia Moderate; Lymphocytes # (A) 1.5 k/uL (1.0-4.8); Lymphocytes % (A) 15 %; MCH 28.2 pg (25.0-35.0); MCHC 30.9 g/dL (31.0-37.0); MCV 91.2 fL (80.0-100.0); Mean Platelet Volume 7.5; Monocytes # (A) 0.5 k/uL (0-1.0); Monocytes % (A) 5 %; Neutrophils # (A) 6.7 k/uL (1.3-7.7); Neutrophils % (A) 69 %; Platelet Count 273 k/uL (150-450); Poikilocytosis Slight; RBC 2.94 m/uL (3.80-5.40); RDW 16.9 % (11.5-15.5); WBC 9.7 k/uL (3.8-10.6)
[2019-03-09 06:26] LABS: Calcium 8.9 mg/dL (8.4-10.2); Potassium 3.3 mmol/L (3.5-5.1)
[2019-03-09 07:08] LABS: Glucose,Whole Blood 130 mg/dL (75-99)
[2019-03-09] MEDS: INSULIN ASPART (NovoLOG) 100 UNIT/ML VIAL SQ SCH ×4 (07:16→21:25)
[2019-03-09] MEDS: BUDESONIDE 0.5 MG/2 ML NEBU INHALATION SCH ×2 (07:55→20:21)
[2019-03-09] MEDS: IPRATROPIUM-ALBUTEROL 3 ML NEB INHALATION SCH ×4 (07:55→20:21)
[2019-03-09] MEDS: DRONABINOL 2.5 MG CAP PO SCH (08:32)
[2019-03-09] MEDS: METOPROLOL TARTRATE 50 MG TAB PO SCH ×3 (08:33→21:21)
[2019-03-09] MEDS: POTASSIUM CHLORIDE ER 20 MEQ TAB.ER PO SCH ×2 (08:33→11:00)
[2019-03-09] MEDS: APIXABAN 2.5 MG TABLET PO SCH ×2 (08:33→21:22)
[2019-03-09] MEDS: AMIODARONE 200 MG TAB PO SCH ×2 (08:33→21:21)
[2019-03-09] MEDS: NYSTATIN 100,000 UNIT/ML SUSP 500,000 UNIT/5 ML CUP PO SCH ×2 (08:44→13:06)
[2019-03-09] MEDS: AMOXIC-POT CLAV 500-125 MG 1 EACH TAB PEG/G-TUBE SCH ×2 (08:44→22:31)
[2019-03-09] MEDS: DILTIAZEM ORAL 60 MG TAB PO SCH ×3 (08:45→21:21)
[2019-03-09] MEDS: DICLOFENAC SODIUM GEL 100 GM TUBE TOPICAL SCH ×2 (08:47→21:23)
[2019-03-09] MEDS: HYDROcodone/APAP 5-325MG 1 EACH TAB PO PRN ×2 (08:51→23:16)
--- NOTE | 2019-03-09 11:34 | P.PN ---
Subjective Progress Note Date: 03/09/19 Principal diagnosis: Acute bowel obstruction status post laparotomy with extensive lysis of adhesions and sigmoid colectomy and end colostomy. The patient is seen today 03/09/2019 in follow-up on the regular medical floor. She is currently resting comfortably in bed. Awake and alert in no acute distress. Ostomy is functioning. Previous drains have been removed. Tolerati ng tube feeds. She remains disoriented to place and time. She is afebrile. Maintaining O2 saturations in the 90s on 2 L/m per nasal cannula. She's hemodynamically stable. White count 9.7. Hemoglobin 8.3. Creatinine 1.61. Currently on Augmentin. Anticoagulated with Eliquis. Asking to go home. Plan is for [facility] post discharge. Objective - Vital Signs Vital signs: Vital Signs Temp 97.4 F L 03/09/19 07:32 Pulse 60 03/09/19 08:10 Resp 16 03/09/19 07:32 BP 171/82 03/09/19 07:32 Pulse Ox 94 L 03/09/19 07:59 Intake & Output 03/08/19 03/09/19 03/09/19 18:59 06:59 18:59 Intake Total 2775 420 Output Total 665 300 900 Balance 2110 120 -900 Intake: IV 1100 200 Lactated Ringers 1,000 ml 1000 200 @ 50 mls/hr IV .Q20H [facility] Rx#:[id number] Sodium Ferric Gluconat- 100 Sucrose 125 mg In Sodium Chloride 0.9% 100 ml @ 100 mls/hr IVPB DAILY [facility] Rx#:[id number] Intake, IV Titration 200 Amount Piperacillin-Tazobactam 3 200 .375 gm In Sodium Chloride 0.9% 100 ml @ 25 mls/hr IVPB Q8H [facility] Rx#: [id number] Oral 1000 Tube Feeding 415 220 Other 60 Output: Urine 415 300 900 Stool 250 Other: Voiding Method Indwelling Catheter Indwelling Catheter - Exam GENERAL EXAM: Alert, pleasant, 83-year-old female patient, she is on 2 L nasal cannula, comfortable in no apparent distress. HEAD: Normocephalic/atraumatic. EYES: Normal reaction of pupils, equal size. Conjunctiva pink, sclera white. NOSE: Clear with pink turbinates. THROAT: No erythema or exudates. NECK: No masses, no JVD, no thyroid enlargement, no adenopathy. CHEST: No chest wall deformity. Symmetrical expansion. LUNGS: Equal air entry with clear anteriorly, crackles in the posterior bases. CVS: Irregular rate and rhythm, normal S1 and S2, no gallops, no murmurs, no rubs ABDOMEN: Soft, nontender. Colostomy with formed stool. Patient has a PEG tube which is functional and the site is dry clean and intact. She has adequate bowel sounds for now. EXTREMITIES: No clubbing, no edema, no cyanosis, 2+ pulses and upper and lower extremities. MUSCULOSKELETAL: Muscle strength and tone normal. SPINE: No scoliosis or deformity SKIN: No rashes CENTRAL NERVOUS SYSTEM: No focal deficits, tone is normal in all 4 extremities. PSYCHIATRIC: Alert and oriented -2. Appropriate affect. Intact judgment and insight. - Labs CBC & Chem 7: 03/09/19 05:35 03/09/19 05:35 Labs: Abnormal Lab Results - Last 24 Hours (Table) 03/08/19 03/08/19 03/08/19 Range/Units 11:38 16:56 20:32 RBC (3.80-5.40) m/uL Hgb (11.4-16.0) gm/dL Hct (34.0-46.0) % MCHC (31.0-37.0) g/dL RDW (11.5-15.5) % Potassium (3.5-5.1) mmol/L BUN (7-17) mg/dL Creatinine (0.52-1.04) mg/dL Glucose (74-99) mg/dL POC Glucose (mg/dL) 150 H 170 H 121 H (75-99) mg/dL 03/09/19 03/09/19 03/09/19 Range/Units 05:35 05:35 07:05 RBC 2.94 L (3.80-5.40) m/uL Hgb 8.3 L (11.4-16.0) gm/dL Hct 26.9 L (34.0-46.0) % MCHC 30.9 L (31.0-37.0) g/dL RDW 16.9 H (11.5-15.5) % Potassium 3.3 L (3.5-5.1) mmol/L BUN 23 H (7-17) mg/dL Creatinine 1.61 H (0.52-1.04) mg/dL Glucose 114 H (74-99) mg/dL POC Glucose (mg/dL) 130 H (75-99) mg/dL Assessment and Plan Assessment: 1 Abdominal discomfort with constipation and colon obstruction status post posterior laparotomy, extensive lysis of adhesions, sigmoid colectomy, end colostomy. Postoperative day #17. Post PEG tube placement on 03/06/2019. Tolerating tube feeds. 2 Large fluid collection in the pelvis could be related to an abscess, procedure on 02/26/2019 with 20 mL of serous fluid was removed and sent for pathology. Drainage tube discontinued. Abscess has improved considerably based on the most recent follow-up CAT scan of the abdomen. 3 Acute hypoxic respiratory failure in the immediate postoperative period requiring BiPAP support. Currently on 2L nasal cannula. 4 Atrial fibrillation with a rapid ventricular response initially on a heparin drip. Currently in sinus rhythm. Eliquis has been resumed 5 Urinary tract infection secondary to Klebsiella pneumoniae and E. coli 6 Lifelong nonsmoker. 7 Hypertension. 8 Hyperlipidemia. 9 Acute on chronic renal failure. Plan: The patient was seen and evaluated by . Plan is for transfer to [facility] in [facility]. We will see him on an as-needed basis. I, the cosigning physician, performed a history & physical examination of the patient. Lungs sounds are clear anteriorly, crackles in the posterior bases. Maintaining good O2 saturations in the 90s on 2L nasal cannula. I discussed the assessment and plan of care with my nurse practitioner, Jenelle Heaton. I attest to the above consultation as dictated by her.
[2019-03-09 11:56] LABS: Glucose,Whole Blood 135 mg/dL (75-99)
--- NOTE | 2019-03-09 12:43 | P.PN ---
<Siobhan Dugan Tiffany - Last Filed: 03/09/19 12:40> Subjective Progress Note Date: 03/09/19 CHIEF COMPLAINT: Abdominal pain HISTORY OF PRESENT ILLNESS: Patient is status post exploratory laparotomy, extensive lysis of adhesions, sigmoid colectomy, and end colostomy on 02/12/19. Patient examined at the bedside. Patient denies abdominal pain. Denies nausea or vomiting. Tolerating tube feedings at goal with minimal residuals. PHYSICAL EXAM: VITAL SIGNS: Reviewed GENERAL: Well-developed in no acute distress. CHEST: Non-labored respirations and equal bilateral excursions. ABDOMEN: Soft. Nondistended. Dressing to abdomen clean dry intact. Ostomy with brown liquid stool noted. PEG tube intact. PSYCH: Appropriate affect. Alert and oriented x 2-3. SKIN: Well perfused. Good skin turgor. ASSESSMENT: 1. Abdominal pain, status post exploratory laparotomy, extensive lysis of adhesions, sigmoid colectomy, and end colostomy secondary to colonic obstruction 2. Intrapelvic fluid collection PLAN: Continue dressing changes to abdomen Continue tube feedings as tolerated Patient may be discharged to [facility] from a surgical standpoint Nurse practitioner note has been reviewed by physician. Signing provider agrees with the documented findings, assessment, and plan of care. Objective - Vital Signs Vital signs: Vital Signs Temp 97.4 F L 03/09/19 07:32 Pulse 60 03/09/19 12:08 Resp 16 03/09/19 07:32 BP 171/82 03/09/19 07:32 Pulse Ox 94 L 03/09/19 07:59 Intake & Output 03/08/19 03/09/19 03/09/19 18:59 06:59 18:59 Intake Total 2775 420 Output Total 665 300 900 Balance 2110 120 -900 Intake: IV 1100 200 Lactated Ringers 1,000 ml 1000 200 @ 50 mls/hr IV .Q20H [facility] Rx#:[id number] Sodium Ferric Gluconat- 100 Sucrose 125 mg In Sodium Chloride 0.9% 100 ml @ 100 mls/hr IVPB DAILY [facility] Rx#:[id number] Intake, IV Titration 200 Amount Piperacillin-Tazobactam 3 200 .375 gm In Sodium Chloride 0.9% 100 ml @ 25 mls/hr IVPB Q8H [facility] Rx#: [id number] Oral 1000 Tube Feeding 415 220 Other 60 Output: Urine 415 300 900 Stool 250 Other: Voiding Method Indwelling Catheter Indwelling Catheter Indwelling Catheter - Labs CBC & Chem 7: 03/09/19 05:35 03/09/19 05:35 Labs: Abnormal Lab Results - Last 24 Hours (Table) 03/08/19 03/08/19 03/09/19 Range/Units 16:56 20:32 05:35 RBC 2.94 L (3.80-5.40) m/uL Hgb 8.3 L (11.4-16.0) gm/dL Hct 26.9 L (34.0-46.0) % MCHC 30.9 L (31.0-37.0) g/dL RDW 16.9 H (11.5-15.5) % Potassium (3.5-5.1) mmol/L BUN (7-17) mg/dL Creatinine (0.52-1.04) mg/dL Glucose (74-99) mg/dL POC Glucose (mg/dL) 170 H 121 H (75-99) mg/dL 03/09/19 03/09/19 03/09/19 Range/Units 05:35 07:05 11:53 RBC (3.80-5.40) m/uL Hgb (11.4-16.0) gm/dL Hct (34.0-46.0) % MCHC (31.0-37.0) g/dL RDW (11.5-15.5) % Potassium 3.3 L (3.5-5.1) mmol/L BUN 23 H (7-17) mg/dL Creatinine 1.61 H (0.52-1.04) mg/dL Glucose 114 H (74-99) mg/dL POC Glucose (mg/dL) 130 H 135 H (75-99) mg/dL <Soham Miller - Last Filed: 03/09/19 16:59> Subjective As above. Patient doing well. She is afebrile. Confusion persists. Tolerating tube feeds. Stable for transfer to [facility]. Objective - Vital Signs Vital signs: Vital Signs Temp 97.7 F 03/09/19 13:07 Pulse 74 03/09/19 16:09 Resp 15 03/09/19 13:07 BP 160/70 03/09/19 13:07 Pulse Ox 96 03/09/19 16:00 Intake & Output 03/08/19 03/09/19 03/09/19 18:59 06:59 18:59 Intake Total 2775 420 900 Output Total 665 300 900 Balance 2110 120 0 Weight 65.3 kg Intake: IV 1100 200 400 Lactated Ringers 1,000 ml 1000 200 400 @ 50 mls/hr IV .Q20H [facility] Rx#:[id number] Sodium Ferric Gluconat- 100 Sucrose 125 mg In Sodium Chloride 0.9% 100 ml @ 100 mls/hr IVPB DAILY [facility] Rx#:[id number] Intake, IV Titration 200 Amount Piperacillin-Tazobactam 3 200 .375 gm In Sodium Chloride 0.9% 100 ml @ 25 mls/hr IVPB Q8H [facility] Rx#: [id number] Oral 1000 Tube Feeding 415 220 440 Other 60 60 Output: Urine 415 300 900 Stool 250 Other: Voiding Method Indwelling Catheter Indwelling Catheter Indwelling Catheter - Labs CBC & Chem 7: 03/09/19 05:35 03/09/19 14:06 Labs: Abnormal Lab Results - Last 24 Hours (Table) 03/08/19 03/09/19 03/09/19 Range/Units 20:32 05:35 05:35 RBC 2.94 L (3.80-5.40) m/uL Hgb 8.3 L (11.4-16.0) gm/dL Hct 26.9 L (34.0-46.0) % MCHC 30.9 L (31.0-37.0) g/dL RDW 16.9 H (11.5-15.5) % Potassium 3.3 L (3.5-5.1) mmol/L BUN 23 H (7-17) mg/dL Creatinine 1.61 H (0.52-1.04) mg/dL Glucose 114 H (74-99) mg/dL POC Glucose (mg/dL) 121 H (75-99) mg/dL 03/09/19 03/09/19 Range/Units 07:05 11:53 RBC (3.80-5.40) m/uL Hgb (11.4-16.0) gm/dL Hct (34.0-46.0) % MCHC (31.0-37.0) g/dL RDW (11.5-15.5) % Potassium (3.5-5.1) mmol/L BUN (7-17) mg/dL Creatinine (0.52-1.04) mg/dL Glucose (74-99) mg/dL POC Glucose (mg/dL) 130 H 135 H (75-99) mg/dL Assessment and Plan (1) Abdominal pain Current Visit: Yes Status: Acute Code(s): R10.9 - UNSPECIFIED ABDOMINAL PAIN SNOMED Code(s): 69336848
--- NOTE | 2019-03-09 13:21 | P.PN ---
Subjective Progress Note Date: 03/09/19 Principal diagnosis: mechanical obstruction with small bowel and distended abdomen with history of adhesions in the past. The progress note dictated on 02/08/2090 by Patient with history notable bowel movement or stool or passing flatus for more than one week duration x-ray indicating small bowel mechanical obstruction. And patient currently nothing by mouth with NG tube which she did some relief. Her vital sign temperature 90.8 orally F Fahrenheit and her pulse rate 80 and she developed on the surgical floor atrial fibrillation with a rate of 1:30 P 8/m patient transferred to personnel monitor floor with cardiology consultation which she was started on cardiac exam drip. And seen by Dr. ISATU Zamudio. Respiratory rate 16 and her blood pressure is hypertensive in spite of trial of medication 187/84. She is on nasal cannula 2 L of oxygen with a pulse ox 95%. current laboratories indicating that her WBC 5.3 with a hemoglobin 11.6, her platelet count 414.next is her PTT 32.6with the normal range 30.6. Minimally elevated. Chemistry indicating sodium 144 potassium 3.8 chloride 108 carbon dioxid 28, anion gap 8, BUN 20, creatinine 1.94, EGFR 23 with chronic kidney disease stage IV. Glucose 131AST and LT normal alk phos 137 total protein 6.1 and albumin 3.4 thyroid function is normal and the free T3 some little bit lower than normal that is because of her illness Nephrology evaluation and assessment indicating patient with the UTI Klebsiella pneumonia and E. coli treated according to the culture with the assessment acute kidney injury possibly prerenal improved with hydration. Chronic kidney disease stage IV with the creatinine near 2 secondary to hydronephrosis and left renal atrophy. #3 abdominal pain with questionable diverticulitis and chronic obstruction and NG tube for decompression. Neurogenic bladder and uses a catheterization 4-5 a day metabolic acidosis and she is on bicarb hypertension is controlled and UTI. Physical exam patient status post barium enema and patient the result reviewed by Dr. Sahu and his impression will be discussed with the family. HEENT was negative neck was supple and chest was clear and the heart was currently controlled atrophic And abdomen is tender distended and with the small bowel obstruction extremities no edema. Assessment small bowel obstruction mechanical and high fall to the patient should have surgical intervention. However this is a surgical case and up to the family and the surgeon. Dictation on progress note date of service 03/09/[address] Maren Vann [facility]. Patient seen and evaluated on 624 room number. Patient has PEG tube feeding with inability to eat, I found that today his hamburger and tomato and lettuce today however patient need to start on a soft mashed diet and did consult with the dietitian to see how the patient is able to eat is only lower teeth few 4 of them and upper she had dementia but start available. Patient has Murphy catheter no hematuria. She had PEG tube infusing at 50 mL an hour continuous. Her colostomy bag with the stools, she is not complaining of abdominal pain. She had been on Augmentin per Dr. Tsai infectious disease, she is on aspirin Lasix by Dr. Gautam nephrology with the anemia secondary to chronic kidney disease stage IV as well as prolonged ICU for complicated surgery. Patient is conscious alert but confused and the need further shelter rehabilitation with the initiation of rehabitation in-house. Laboratory WBC 9.7, hemoglobin 8.3 with hematocrit 26.9, platelet count back to normal 273. Chemistry: Sodium 140 potassium 3.3 and she was supplemented today her BUN is 23 and the creatinine 1.61 which is significant improvement with the underlying chronic kidney disease stage IV currently she had estimated glomerular filtration rate 29. Her glucose from 14 she has a CABG covered with a scale. 4 underlying treatment with the feeding tube and does have high sugar content. Her temperature 97.4, her heart rate is 60 with an output paroxysmal atrial fibrillation controlled ventricular response. Her blood pressure ranging between 171/82 and mean arterial pressure 111. Pulse ox on 2 L nasal cannula ranging between 95 splash 94. On 2 L. On exam: Head was normocephalic and atraumatic pupil was equal reactive she had previous implant of cataract oropharynx as mentioned above with only a few teeth on the lower jaw and no plate in the upper jaw and the need dietitian evaluation and appropriate nutrition added to the PEG tube continuation. The neck was supple and no JVD no thyromegaly no lymphadenopathy trachea midline. Chest is clear to auscultation and percussion she had right hemidiaphragm elevation. The heart currently PMI in the fifth intercostal space outside midclavicular line she had a hypertension not well-controlled and the paroxysmal atrial fib. The abdomen she had the incision of the wound to be checked by the surgical team, PEG tube placement and started to be used with a 50 mL an hour currently with the today for bilateral ball however should be easy to be patent by the patient. Extremities no edema. Neurologically delirium with forgetfulness prolonged ICU. No lateralizing sign. Assessment patient clinically improving and we'll continue the current order as well as E medication or clearance from infolded entry level sales consultant for plan for transfer to [facility] or medical [place] the only 2 I go to. Clearance from cardiology clearance from pulmonary and critical care clearance from infectious disease clearance from surgeon Dr. Miller for further proceeding to shelter with the current treatment #1 anemia #2 chronic kidney disease stage IV with the atrophy of the left kidney and underlying hydroureter hydronephrosis and history of hematuria. Status post laparotomy exploratory with the underlying colonic obstruction as well as small bowel obstruction. Pelvic abscess UTI initially with Klebsiella pneumonia and E. coli Delirium with the ICU Advanced right hip arthropathy with [id number]. Hypoxemia with underlying history possibility of aspiration pneumonitis and atelectasis. Hypertension with hypertensive heart disease Atrial fibrillation with rapid ventricular response. Decrease oral intake with severe nutritional deficiency protein calorie underwent PEG tube prior to that Dopp half tube prior to that TPN with hyperglycemia. Plan once patient able to have physical therapy, consultation for the social staff worker and operations planner was requested. Objective - Vital Signs Vital signs: Vital Signs Temp 97.4 F L 03/09/19 07:32 Pulse 60 03/09/19 12:08 Resp 16 03/09/19 07:32 BP 171/82 03/09/19 07:32 Pulse Ox 94 L 03/09/19 07:59 Intake & Output 03/08/19 03/09/19 03/09/19 18:59 06:59 18:59 Intake Total 2775 420 Output Total 665 300 900 Balance 2110 120 -900 Intake: IV 1100 200 Lactated Ringers 1,000 ml 1000 200 @ 50 mls/hr IV .Q20H [facility] Rx#:[id number] Sodium Ferric Gluconat- 100 Sucrose 125 mg In Sodium Chloride 0.9% 100 ml @ 100 mls/hr IVPB DAILY [facility] Rx#:[id number] Intake, IV Titration 200 Amount Piperacillin-Tazobactam 3 200 .375 gm In Sodium Chloride 0.9% 100 ml @ 25 mls/hr IVPB Q8H [facility] Rx#: [id number] Oral 1000 Tube Feeding 415 220 Other 60 Output: Urine 415 300 900 Stool 250 Other: Voiding Method Indwelling Catheter Indwelling Catheter Indwelling Catheter - Labs CBC & Chem 7: 03/09/19 05:35 03/09/19 05:35 Labs: Abnormal Lab Results - Last 24 Hours (Table) 03/08/19 03/08/19 03/09/19 Range/Units 16:56 20:32 05:35 RBC 2.94 L (3.80-5.40) m/uL Hgb 8.3 L (11.4-16.0) gm/dL Hct 26.9 L (34.0-46.0) % MCHC 30.9 L (31.0-37.0) g/dL RDW 16.9 H (11.5-15.5) % Potassium (3.5-5.1) mmol/L BUN (7-17) mg/dL Creatinine (0.52-1.04) mg/dL Glucose (74-99) mg/dL POC Glucose (mg/dL) 170 H 121 H (75-99) mg/dL 03/09/19 03/09/19 03/09/19 Range/Units 05:35 07:05 11:53 RBC (3.80-5.40) m/uL Hgb (11.4-16.0) gm/dL Hct (34.0-46.0) % MCHC (31.0-37.0) g/dL RDW (11.5-15.5) % Potassium 3.3 L (3.5-5.1) mmol/L BUN 23 H (7-17) mg/dL Creatinine 1.61 H (0.52-1.04) mg/dL Glucose 114 H (74-99) mg/dL POC Glucose (mg/dL) 130 H 135 H (75-99) mg/dL
--- NOTE | 2019-03-09 16:10 | PN ---
PROGRESS NOTE Patient is seen for followup for chronic kidney disease. Her renal function has been fairly stable. Patient is maintained on tube feeding. She is starting to increase her oral intake. On examination today, blood pressure was 160/70, heart rate 83 per minute. She is afebrile. EXAMINATION OF THE HEART: S1 and S2. EXAMINATION OF LUNGS: Bilateral breath sounds are heard. Decreased breath sounds at bases. ABDOMEN: Soft. Mild tenderness noted. Examination of lower extremities shows no significant edema. LABS: Sodium 140, potassium 3.3, chloride 107, BUN 23, serum creatinine 1.6, hemoglobin 8.3 g/dL. ASSESSMENT: 1. Chronic kidney disease, stage IV, currently stable, secondary to nephrosclerosis and left renal atrophy. 2. Acute kidney injury, acute tubular necrosis, currently improved. 3. Status post explorative laparotomy with sigmoid colectomy and colostomy. 4. History of neurogenic bladder with self-catheterizations, now with Murphy catheter. 5. Urinary tract infection with urine culture growing klebsiella and Escherichia coli, maintained on antibiotics. 6. Atrial fibrillation, currently controlled rate. 7. Hypokalemia associated with decreased oral intake. PLAN: Replace potassium. Monitor electrolytes and repeat labs in a.m. MMODL / IJN: [id number] /
[2019-03-09 17:11] LABS: Glucose,Whole Blood 121 mg/dL (75-99)
[2019-03-09] MEDS: hydrALAZINE HCL 25 MG TAB PO SCH ×2 (17:40→21:21)
[2019-03-09] MEDS: ACETAMINOPHEN TAB 325 MG TAB PO PRN (18:25)
[2019-03-09] MEDS: ATORVASTATIN 10 MG TAB PO SCH (21:21)
[2019-03-09] MEDS: MELATONIN 3 MG TABLET PO PRN (21:21)
[2019-03-09] MEDS: DULoxetine HCL 60 MG CAPSULE.DR PO SCH (21:21)
[2019-03-09 21:26] LABS: Glucose,Whole Blood 129 mg/dL (75-99)
--- NOTE | 2019-03-09 22:38 | PN ---
PROGRESS NOTE DATE OF SERVICE: 03/09/2019 REASON FOR FOLLOWUP: 1. Perforated sigmoid diverticulitis with secondary peritonitis and abdominal abscess. 2. UTI, adequately treated. INTERVAL HISTORY: The patient is currently afebrile. She was seen on rounds this morning, breathing comfortably. Denies having any chest pain or any cough. No nausea, no vomiting. No abdominal pain or diarrhea. PHYSICAL EXAMINATION: Blood pressure 168/70 with a pulse of 83, temperature 97.7. She is 96% on 2 L nasal cannula. General description is an elderly female lying in bed in no distress. RESPIRATORY SYSTEM: Unlabored breathing. Clear to auscultation anteriorly. HEART: S1, S2. Regular rate and rhythm. ABDOMEN: Soft. No tenderness. LABS: Hemoglobin 8.3, white count 11.7, BUN of 23, creatinine 1.61. DIAGNOSTIC IMPRESSION AND PLAN: Patient with perforated sigmoid diverticulitis in this patient who is status post sigmoid colectomy and diverting colostomy. The patient is currently on oral Augmentin; to continue for about a week and monitor her clinical course closely. Continue with supportive care. MMODL / IJN: [id number] /
[2019-03-10] MEDS: hydrALAZINE HCL 25 MG TAB PO SCH ×2 (06:24→12:06)
[2019-03-10 07:00] LABS: Glucose,Whole Blood 121 mg/dL (75-99)
[2019-03-10] MEDS: INSULIN ASPART (NovoLOG) 100 UNIT/ML VIAL SQ SCH ×4 (07:10→21:43)
[2019-03-10] MEDS: BUDESONIDE 0.5 MG/2 ML NEBU INHALATION SCH ×2 (07:11→19:04)
[2019-03-10] MEDS: IPRATROPIUM-ALBUTEROL 3 ML NEB INHALATION SCH ×4 (07:11→19:04)
[2019-03-10] MEDS: METOPROLOL TARTRATE 50 MG TAB PO SCH ×3 (08:57→20:47)
[2019-03-10] MEDS: AMOXIC-POT CLAV 500-125 MG 1 EACH TAB PEG/G-TUBE SCH ×2 (08:57→20:55)
[2019-03-10] MEDS: DILTIAZEM ORAL 60 MG TAB PO SCH ×3 (08:57→20:55)
[2019-03-10] MEDS: APIXABAN 2.5 MG TABLET PO SCH ×2 (08:57→20:47)
[2019-03-10] MEDS: DICLOFENAC SODIUM GEL 100 GM TUBE TOPICAL SCH ×2 (08:58→20:55)
[2019-03-10] MEDS: AMIODARONE 200 MG TAB PO SCH ×2 (08:58→20:47)
[2019-03-10] MEDS: METOCLOPRAMIDE 5 MG/ML 2 ML VIAL IVP PRN (10:39)
[2019-03-10] MEDS: HYDROcodone/APAP 5-325MG 1 EACH TAB PO PRN ×3 (10:41→20:55)
--- NOTE | 2019-03-10 11:20 | P.PN ---
<Siobhan Dugan - Last Filed: 03/10/19 11:19> Subjective Progress Note Date: 03/10/19 CHIEF COMPLAINT: Abdominal pain HISTORY OF PRESENT ILLNESS: Patient is status post exploratory laparotomy, extensive lysis of adhesions, sigmoid colectomy, and end colostomy on 02/12/19. Patient examined at the bedside. Patient denies abdominal pain. Denies nausea or vomiting. Tolerating tube feedings at goal with minimal residuals. Apparently, patient became very confused last night and ripped off her colostomy appliance. She now has a construction safety manager at the bedside. PHYSICAL EXAM: VITAL SIGNS: Reviewed GENERAL: Well-developed in no acute distress. CHEST: Non-labored respirations and equal bilateral excursions. ABDOMEN: Soft. Nondistended. Dressing to abdomen clean dry intact. Ostomy with brown liquid stool noted. PEG tube intact. PSYCH: Appropriate affect. Alert and oriented x 2. SKIN: Well perfused. Good skin turgor. ASSESSMENT: 1. Abdominal pain, status post exploratory laparotomy, extensive lysis of adhesions, sigmoid colectomy, and end colostomy secondary to colonic obstruction 2. Intrapelvic fluid collection PLAN: Continue dressing changes to abdomen Continue tube feedings as tolerated Patient may be discharged to [facility] from a surgical standpoint Nurse practitioner note has been reviewed by physician. Signing provider agrees with the documented findings, assessment, and plan of care. Objective - Vital Signs Vital signs: Vital Signs Temp 98.4 F 03/10/19 05:54 Pulse 70 03/10/19 11:11 Resp 20 03/10/19 05:54 BP 191/82 03/10/19 05:54 Pulse Ox 94 L 03/10/19 05:54 Intake & Output 03/09/19 03/10/19 03/10/19 18:59 06:59 18:59 Intake Total 900 Output Total 1600 1200 Balance -700 -1200 Weight 65.3 kg 55 kg Intake: IV 400 Lactated Ringers 1,000 ml 400 @ 50 mls/hr IV .Q20H [facility] Rx#:[id number] Tube Feeding 440 Other 60 Output: Urine 1600 1000 Stool 200 Other: Voiding Method Indwelling Catheter Indwelling Catheter Indwelling Catheter - Labs CBC & Chem 7: 03/09/19 05:35 03/09/19 14:06 Labs: Abnormal Lab Results - Last 24 Hours (Table) 01/03/09/19 03/09/19 Range/Units 11:53 17:08 21:25 POC Glucose (mg/dL) 135 H 121 H 129 H (75-99) mg/dL 03/10/19 Range/Units 06:44 POC Glucose (mg/dL) 121 H (75-99) mg/dL <Soham Miller - Last Filed: 03/10/19 16:38> Subjective As above. Patient seems to be doing well. Tolerating tube feeds. Remains confused at times. Possible transfer. Objective - Vital Signs Vital signs: Vital Signs Temp 98.4 F 03/10/19 15:00 Pulse 76 03/10/19 15:26 Resp 14 03/10/19 15:00 BP 175/73 03/10/19 15:00 Pulse Ox 97 03/10/19 15:00 Intake & Output 03/09/19 03/10/19 03/10/19 18:59 06:59 18:59 Intake Total 900 840 Output Total 1600 1200 Balance -700 -1200 840 Weight 65.3 kg 55 kg Intake: IV 400 400 Lactated Ringers 1,000 ml 400 400 @ 50 mls/hr IV .Q20H [facility] Rx#:[id number] Tube Feeding 440 320 Other 60 120 Output: Urine 1600 1000 Stool 200 Other: Voiding Method Indwelling Catheter Indwelling Catheter Indwelling Catheter - Labs CBC & Chem 7: 03/09/19 05:35 03/09/19 14:06 Labs: Abnormal Lab Results - Last 24 Hours (Table) 03/09/19 03/09/19 03/10/19 Range/Units 17:08 21:25 06:44 POC Glucose (mg/dL) 121 H 129 H 121 H (75-99) mg/dL 03/10/19 Range/Units 12:00 POC Glucose (mg/dL) 127 H (75-99) mg/dL Assessment and Plan (1) Abdominal pain Current Visit: Yes Status: Acute Code(s): R10.9 - UNSPECIFIED ABDOMINAL PAIN SNOMED Code(s): 19412701
[2019-03-10 12:02] LABS: Glucose,Whole Blood 127 mg/dL (75-99)
--- NOTE | 2019-03-10 12:22 | P.PN ---
Subjective Progress Note Date: 03/10/19 Principal diagnosis: Acute bowel obstruction status post laparotomy with extensive lysis of adhesions and sigmoid colectomy and end colostomy. The patient is seen today 03/09/2019 in follow-up on the regular medical floor. She is currently resting comfortably in bed. Awake and alert in no acute distress. Ostomy is functioning. Previous drains have been removed. Tolerati ng tube feeds. She remains disoriented to place and time. She is afebrile. Maintaining O2 saturations in the 90s on 2 L/m per nasal cannula. She's hemodynamically stable. White count 9.7. Hemoglobin 8.3. Creatinine 1.61. Currently on Augmentin. Anticoagulated with Eliquis. Asking to go home. Plan is for [facility] post discharge. Patient seen today 08/09/2019 in follow-up on the regular medical floor. She is resting in bed. She's had some issues with nausea this morning. She had also removed her ostomy bag during the evening. Sitter is at the bedside. She denies any shortness of breath, cough or congestion. Maintaining O2 saturations in the 90s on 2 L. She is continued on bronchodilators, Augmentin, Eliquis Objective - Vital Signs Vital signs: Vital Signs Temp 98.4 F 03/10/19 05:54 Pulse 76 03/10/19 11:21 Resp 20 03/10/19 05:54 BP 191/82 03/10/19 05:54 Pulse Ox 94 L 03/10/19 05:54 Intake & Output 03/09/19 03/10/19 03/10/19 18:59 06:59 18:59 Intake Total 900 Output Total 1600 1200 Balance -700 -1200 Weight 65.3 kg 55 kg Intake: IV 400 Lactated Ringers 1,000 ml 400 @ 50 mls/hr IV .Q20H [facility] Rx#:[id number] Tube Feeding 440 Other 60 Output: Urine 1600 1000 Stool 200 Other: Voiding Method Indwelling Catheter Indwelling Catheter Indwelling Catheter - Exam GENERAL EXAM: Alert, pleasant, confused, 83-year-old female patient, she is on 2 L nasal cannula, comfortable in no apparent distress. HEAD: Normocephalic/atraumatic. EYES: Normal reaction of pupils, equal size. Conjunctiva pink, sclera white. NOSE: Clear with pink turbinates. THROAT: No erythema or exudates. NECK: No masses, no JVD, no thyroid enlargement, no adenopathy. CHEST: No chest wall deformity. Symmetrical expansion. LUNGS: Equal air entry with clear anteriorly, crackles in the posterior bases. CVS: Irregular rate and rhythm, normal S1 and S2, no gallops, no murmurs, no rubs ABDOMEN: Soft, nontender. Colostomy with formed stool. Patient has a PEG tube which is functional and the site is dry clean and intact. She has adequate bowel sounds for now. EXTREMITIES: No clubbing, no edema, no cyanosis, 2+ pulses and upper and lower extremities. MUSCULOSKELETAL: Muscle strength and tone normal. SPINE: No scoliosis or deformity SKIN: No rashes CENTRAL NERVOUS SYSTEM: No focal deficits, tone is normal in all 4 extremities. PSYCHIATRIC: Alert and oriented -2. Appropriate affect. Intact judgment and insight. - Labs CBC & Chem 7: 03/09/19 05:35 03/09/19 14:06 Labs: Abnormal Lab Results - Last 24 Hours (Table) 03/09/19 03/09/19 03/10/19 Range/Units 17:08 21:25 06:44 POC Glucose (mg/dL) 121 H 129 H 121 H (75-99) mg/dL 03/10/19 Range/Units 12:00 POC Glucose (mg/dL) 127 H (75-99) mg/dL Assessment and Plan Assessment: 1 Abdominal discomfort with constipation and colon obstruction status post posterior laparotomy, extensive lysis of adhesions, sigmoid colectomy, end colostomy. Post PEG tube placement on 03/06/2019. 2 Large fluid collection in the pelvis could be related to an abscess, procedure on 02/26/2019 with 20 mL of serous fluid was removed and sent for pathology. Drainage tube discontinued. Abscess has improved considerably based on the most recent follow-up CAT scan of the abdomen. 3 Acute hypoxic respiratory failure in the immediate postoperative period requiring BiPAP support. Currently on 2L nasal cannula. 4 Atrial fibrillation with a rapid ventricular response initially on a heparin drip. Currently in sinus rhythm. Eliquis has been resumed 5 Urinary tract infection secondary to Klebsiella pneumoniae and E. coli 6 Lifelong nonsmoker. 7 Hypertension. 8 Hyperlipidemia. 9 Acute on chronic renal failure. Plan: The patient was seen and evaluated by . We will see her on an as-needed basis. Discharge planning in place. I, the cosigning physician, performed a history & physical examination of the patient. Lungs sounds are clear anteriorly, crackles in the posterior bases. Maintaining good O2 saturations in the 90s on 2L nasal cannula. I discussed the assessment and plan of care with my nurse practitioner, Jenelle Heaton. I attest to the above consultation as dictated by her.
--- NOTE | 2019-03-10 12:43 | PN ---
PROGRESS NOTE Patient is seen for followup for chronic kidney disease. She was confused this morning and was pulling at her tubes. She is currently seen with a sitter. The patient is resting comfortably. She denies any significant complaints. PHYSICAL EXAMINATION: On examination, blood pressure was elevated 191/82 this morning, heart rate 68 per minute. She is afebrile. EXAMINATION OF THE HEART: S1, S2. EXAMINATION OF THE LUNGS: Bilateral breath sounds are heard. Abdomen is soft. Examination of lower extremities shows no evidence of edema. Incisions are intact. LABS: No labs available from today. Potassium was 3.6 after replacement yesterday. Creatinine 1.61. ASSESSMENT: 1. Chronic kidney disease, stage 4 secondary to nephrosclerosis with left renal atrophy. 2. Acute kidney injury, acute tubular necrosis, now improved. 3. Status post explorative laparotomy with sigmoid colectomy and colostomy. 4. Urinary tract infection with urine culture growing Klebsiella and Escherichia coli, maintained on antibiotics. 5. Hypokalemia, status post replacement. PLAN: Continue with the tube feedings. Repeat labs in a.m. Monitor electrolytes. MMODL / IJN: [id number] /
--- NOTE | 2019-03-10 13:34 | P.PN ---
Subjective Progress Note Date: 03/10/19 (Not eating, no appetite) Principal diagnosis: mechanical obstruction with small bowel and distended abdomen with history of adhesions in the past. The progress note dictated on 02/08/2090 by Patient with history notable bowel movement or stool or passing flatus for more than one week duration x-ray indicating small bowel mechanical obstruction. And patient currently nothing by mouth with NG tube which she did some relief. Her vital sign temperature 90.8 orally F Fahrenheit and her pulse rate 80 and she developed on the surgical floor atrial fibrillation with a rate of 1:30 P 8/m patient transferred to monitor car operator floor with cardiology consultation which she was started on cardiac exam drip. And seen by Dr. ISATU Zamudio. Respiratory rate 16 and her blood pressure is hypertensive in spite of trial of medication 187/84. She is on nasal cannula 2 L of oxygen with a pulse ox 95%. current laboratories indicating that her WBC 5.3 with a hemoglobin 11.6, her platelet count 414.next is her PTT 32.6with the normal range 30.6. Minimally elevated. Chemistry indicating sodium 144 potassium 3.8 chloride 108 carbon dioxid 28, anion gap 8, BUN 20, creatinine 1.94, EGFR 23 with chronic kidney disease stage IV. Glucose 131AST and LT normal alk phos 137 total protein 6.1 and albumin 3.4 thyroid function is normal and the free T3 some little bit lower than normal that is because of her illness Nephrology evaluation and assessment indicating patient with the UTI Klebsiella pneumonia and E. coli treated according to the culture with the assessment acute kidney injury possibly prerenal improved with hydration. Chronic kidney disease stage IV with the creatinine near 2 secondary to hydronephrosis and left renal atrophy. #3 abdominal pain with questionable diverticulitis and chronic obstruction and NG tube for decompression. Neurogenic bladder and uses a catheterization 4-5 a day metabolic acidosis and she is on bicarb hypertension is controlled and UTI. Physical exam patient status post barium enema and patient the result reviewed by Dr. Sahu and his impression will be discussed with the family. HEENT was negative neck was supple and chest was clear and the heart was currently controlled atrophic And abdomen is tender distended and with the small bowel obstruction extremities no edema. Assessment small bowel obstruction mechanical and high fall to the patient should have surgical intervention. However this is a surgical case and up to the family and the surgeon. Dictation on progress note date of service 03/10/[address] Engel. Patient is conscious alert confused with delirium we will be checking with the neurology merchandising consultant for evaluation and treatment if possible. Patient her vital sign indicating temperature 98.4 F oral. Her pulse rate 68/m with a controlled atrial fibrillation on anticoagulant. Her respiratory rate is 20/m nonlabored. Blood pressure is 191/82 with a mean 118 which is significant elevation we'll add Norvasc 5 mg at at bedtime as well as increase the hydralazine to 50 mg 4 times a day with the parameter to be held if below 120 systolic. Her pulse ox is 94 on on 2 L. Her POC glucose milligram per day seizure ranging between 121 and 127 which is stable. She had insulin coverage temporary however that is from the feeding antral with peg tube. Patient has neurogenic bladder and she used to do self-catheterization, currently she had the Murphy catheter and patient unable to do self-cath eterization at this is stage of treatment. The abdominal wound still healing. Discussed with the RN caring for her Vannesa and we discussed the planning for discharge to a residential probably tomorrow [place] or medical [place]. On the exam Patient is conscious alert confused 3 with the acetaminophen dementia versus delirium we will consult to neurology she has currently setter. She had an upper plate and lower partial dentures. Pupil was equal reactive with history of lens implant of for cataract. Neck was supple no JVD no thyromegaly no lymphadenopathy. Chest is normal breath sounds breath sounds with decreased on the right lower lung field with the infiltration of right hemidiaphragm. Heart she has a tibial fibrillation paroxysmal with controlled ventricular response no evidence of congestive heart failure. Abdomen #1 she has peg tube feeding, Murphy catheter with a neurogenic bladder, colostomy bag on the left side of the abdomen. Mild distention positive bowel sounds. Extremities no edema and positive pulses. Assessment Patient progressive IMPROVEMENT clinically and ordered for residential as above-mentioned oral [place] or [place] for further rehabilitation prolongated in the residential after clearance from the involvement [employer] retailer sales consultant. Plan from the discharge nursing staff as well as social media intern for management for the bed availability in the residential. I did speak with segun and Vannesa to contact the nurse managing as well as medical planner and the social media intern and to notify me or call me that set up for planning of discharge after the consulting physician agreed. We'll consult neurology to evaluate for delirium versus dementia. And also stocking bilateral. Objective - Vital Signs Vital signs: Vital Signs Temp 98.4 F 03/10/19 05:54 Pulse 76 03/10/19 11:21 Resp 20 03/10/19 05:54 BP 191/82 03/10/19 05:54 Pulse Ox 94 L 03/10/19 05:54 Intake & Output 03/09/19 03/10/19 03/10/19 18:59 06:59 18:59 Intake Total 900 840 Output Total 1600 1200 Balance -700 -1200 840 Weight 65.3 kg 55 kg Intake: IV 400 400 Lactated Ringers 1,000 ml 400 400 @ 50 mls/hr IV .Q20H [facility] Rx#:[id number] Tube Feeding 440 320 Other 60 120 Output: Urine 1600 1000 Stool 200 Other: Voiding Method Indwelling Catheter Indwelling Catheter Indwelling Catheter - Labs CBC & Chem 7: 03/09/19 05:35 03/09/19 14:06 Labs: Abnormal Lab Results - Last 24 Hours (Table) 03/09/19 03/09/19 03/10/19 Range/Units 17:08 21:25 06:44 POC Glucose (mg/dL) 121 H 129 H 121 H (75-99) mg/dL 03/10/19 Range/Units 12:00 POC Glucose (mg/dL) 127 H (75-99) mg/dL
--- NOTE | 2019-03-10 15:27 | P.CNNES ---
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 Neurology was consulted to evaluate for delirium versus dementia. According to the nursing report, patient has been having sundowning, gets more confused at night, ripping off her colostomy bag. She has been disoriented at times. Patient at present is slightly somnolent, offers no complaints. No signs of stroke or focal symptoms. Patient denies any headache. Family members were not present at this time. Patient's 2-D echo from 02/11/2019 showed normal sinus rhythm, EF 55-60% right ventricle is mildly enlarged, left atrial size is normal. Interatrial and interventricular septum intact. Patient's computed tomography scan of the abdomen and pelvis on 03/03/2019 showed pelvic abscess in the presacral space is largely resolved. Small amount of residual may remain present. A drainage catheter present. 1.9 cm hypodensity within the body of the pancreas. Pancreat ic duct is prominent extending towards the ampulla gallbladder. Chem-20 neoplasm is not excluded at this time. Review of Systems ROS unobtainable: due to mental status Past Medical History Past Medical History: Hyperlipidemia, Hypertension, Osteoarthritis (OA), Renal Disease Additional Past Medical History / Comment(s): one functioning kidney, cervical ca, urethral ca, right hip pain History of Any Multi-Drug Resistant Organisms: None Reported Past Surgical History: Appendectomy, Bowel Resection Additional Past Surgical History / Comment(s): bowel resection, kidney tumor removed Past Psychological History: No Psychological Hx Reported Smoking Status: Never smoker Past Alcohol Use History: None Reported Past Drug Use History: None Reported Medications and Allergies Home Medications Medication Instructions Recorded Confirmed Type Atorvastatin [Lipitor] 10 mg PO Q48H 02/07/19 02/09/19 History Cholecalciferol [Vitamin D3 (25 1,000 unit PO DAILY 02/07/19 02/07/19 History Mcg = 1000 Iu)] DULoxetine HCL [Cymbalta] 60 mg PO HS 02/07/19 02/09/19 History Diclofenac Sodium Gel [Voltaren 1 applic TOPICAL DAILY PRN 02/07/19 02/07/19 History Gel] Sodium Bicarbonate 325 mg PO BID 02/07/19 02/07/19 History amLODIPine [Norvasc] 5 mg PO BID 02/07/19 02/09/19 History cloNIDine HCL [Catapres] 0.1 mg PO BID 02/07/19 02/09/19 History hydrALAZINE HCL 50 mg PO BID-W/MEALS 02/07/19 02/09/19 History Azithromycin [Zithromax Z-pack] See Taper PO DIRECTED 02/09/19 02/09/19 History Metoprolol Tartrate 25 mg PO BID 02/09/19 02/09/19 History Polyethylene Glycol 3350 [Miralax] 17 gm PO DAILY 02/09/19 02/09/19 History Allergies Allergy/AdvReac Type Severity Reaction Status Date / Time No Known Allergies Allergy Verified 02/12/19 11:01 Physical Examination - Vital Signs Vital Signs: Vital Signs Temp Pulse Pulse Resp BP Pulse Ox 03/10/19 11:21 76 03/10/19 11:11 70 03/10/19 07:30 72 03/10/19 07:12 68 03/10/19 05:54 98.4 F 68 20 191/82 94 L 03/09/19 21:34 98.2 F 89 20 163/81 92 L 03/09/19 20:36 76 03/09/19 20:23 74 03/09/19 16:09 74 03/09/19 16:00 96 03/09/19 15:59 76 Intake and Output 03/09/19 03/10/19 03/10/19 22:59 06:59 14:59 Intake Total 840 Output Total 1500 400 Balance -1500 -400 840 Intake: IV 400 Lactated Ringers 1,000 ml 400 @ 50 mls/hr IV .Q20H [facility] Rx#:[id number] Tube Feeding 320 Other 120 Output: Urine 1300 400 Stool 200 Other: Voiding Method Indwelling Catheter Indwelling Catheter Indwelling Catheter Weight 55 kg On examination patient is an elderly female, in no acute distress. She was somnolent, would doze off, but became more alert at the end of the interview. Speech is slow, but clear with no aphasia or dysarthria. She has slow mentation, prolonged latency time to answer questions. Patient has positive palmomental reflex and visuospatial apraxia. Patient states that the year is "202" in the month is January. She states she is in [facility] in [facility]. Patient could not tell me the name of the current president. She states she will be "83 next month" and states her date of is 1935. On cranial examination pupils are round and reacting to light, visual reeder appears full face is symmetric and tongue protrudes the midline. Muscle strength testing there is no obvious drift and the strength appears normal in the arms. Her hip flexion is 4+ bilaterally. And knees are normal ankles are 5-on the right, 5 on left. Reflexes are 1+ and plantars downgoing. Sensory touch is equal. No obvious ataxia for [id number] testing. She has very mild tremulousness for outstretched hands. Tone and bulk of muscles normal. Gait deferred. No obvious carotid bruit heard, although I was not able to hear any clear sounds because of her breathing. S1 and S2 audible. Mild murmur. Patient has oxygen by nasal cannula. Skin appears somewhat dry. Results Patient's hemoglobin A1c is 5.9, total cholesterol 215, LDL 126, HDL 64 and triglycerides 234 on 02/26/2019. TSH and free T4 is normal, PTH 93.3. Patient's last Chem-7 from 03/09/2019 showed normal electrolytes, BU and 23, creatinine 1.61. Liver panel normal. - Laboratory Findings CBC and BMP: 03/09/19 05:35 03/09/19 14:06 Abnormal Lab Findings: Abnormal Labs 02/07/19 02/07/19 02/07/19 14:50 14:50 22:15 WBC 11.8 H RBC Hgb Hct MCHC RDW Plt Count Neutrophils # 9.4 H Neutrophils # (Manual) Lymphocytes # Lymphocytes # (Manual) Monocytes # Monocytes # (Manual) Eosinophils # Eosinophils # (Manual) APTT Sodium 136 L Potassium Chloride Carbon Dioxide 21 L BUN 34 H Creatinine 2.42 H Glucose 132 H POC Glucose (mg/dL) Calcium Ionized Calcium Bianka Phosphorus Magnesium Iron TIBC AST ALT Alkaline Phosphatase Total Protein Albumin Triglycerides Procalcitonin Free T3 pg/mL Urine Appearance Cloudy H Urine Protein 1+ H Urine Blood Ur Leukocyte Esterase Large H Urine RBC 6 H Urine WBC 74 H Urine WBC Clumps Urine Bacteria Many H Urine Mucus Rare H Crossmatch 02/08/19 02/08/19 02/09/19 06:46 06:46 06:16 WBC 11.8 H RBC 3.61 L Hgb 11.2 L Hct MCHC RDW Plt Count Neutrophils # 9.5 H Neutrophils # (Manual) Lymphocytes # Lymphocytes # (Manual) Monocytes # Monocytes # (Manual) Eosinophils # Eosinophils # (Manual) APTT Sodium Potassium 3.1 L Chloride Carbon Dioxide BUN 34 H Creatinine 2.12 H Glucose 135 H POC Glucose (mg/dL) Calcium Ionized Calcium Bianka Phosphorus Magnesium Iron TIBC AST ALT Alkaline Phosphatase Total Protein Albumin Triglycerides Procalcitonin Free T3 pg/mL Urine Appearance Urine Protein Urine Blood Ur Leukocyte Esterase Urine RBC Urine WBC Urine WBC Clumps Urine Bacteria Urine Mucus Crossmatch 02/09/19 02/10/19 02/10/19 06:16 06:27 06:27 WBC RBC Hgb Hct MCHC RDW Plt Count Neutrophils # Neutrophils # (Manual) Lymphocytes # 0.7 L Lymphocytes # (Manual) Monocytes # Monocytes # (Manual) Eosinophils # Eosinophils # (Manual) APTT Sodium Potassium Chloride 108 H 109 H Carbon Dioxide BUN 27 H 23 H Creatinine 1.93 H 2.05 H Glucose 125 H 136 H POC Glucose (mg/dL) Calcium Ionized Calcium Bianka Phosphorus Magnesium 2.6 H Iron TIBC AST ALT Alkaline Phosphatase Total Protein Albumin Triglycerides Procalcitonin Free T3 pg/mL Urine Appearance Urine Protein Urine Blood Ur Leukocyte Esterase Urine RBC Urine WBC Urine WBC Clumps Urine Bacteria Urine Mucus Crossmatch 02/10/19 02/11/19 02/11/19 17:59 06:44 06:44 WBC RBC Hgb Hct MCHC RDW Plt Count Neutrophils # Neutrophils # (Manual) Lymphocytes # Lymphocytes # (Manual) 0.65 L 0.93 L Monocytes # Monocytes # (Manual) 1.11 H 1.36 H Eosinophils # Eosinophils # (Manual) APTT Sodium Potassium Chloride Carbon Dioxide BUN 20 H Creatinine 2.07 H Glucose 110 H POC Glucose (mg/dL) Calcium Ionized Calcium Bianka Phosphorus Magnesium 2.4 H Iron TIBC AST ALT Alkaline Phosphatase Total Protein Albumin Triglycerides Procalcitonin Free T3 pg/mL 1.7 L Urine Appearance Urine Protein Urine Blood Ur Leukocyte Esterase Urine RBC Urine WBC Urine WBC Clumps Urine Bacteria Urine Mucus Crossmatch 02/11/19 02/11/19 02/11/19 09:17 09:17 09:17 WBC RBC Hgb Hct MCHC RDW Plt Count Neutrophils # Neutrophils # (Manual) Lymphocytes # 0.8 L Lymphocytes # (Manual) Monocytes # Monocytes # (Manual) Eosinophils # Eosinophils # (Manual) APTT 32.6 H Sodium Potassium Chloride 108 H Carbon Dioxide BUN 20 H Creatinine 1.94 H Glucose 131 H POC Glucose (mg/dL) Calcium Ionized Calcium Bianka Phosphorus Magnesium Iron TIBC AST ALT Alkaline Phosphatase 137 H Total Protein 6.1 L Albumin 3.4 L Triglycerides Procalcitonin Free T3 pg/mL Urine Appearance Urine Protein Urine Blood Ur Leukocyte Esterase Urine RBC Urine WBC Urine WBC Clumps Urine Bacteria Urine Mucus Crossmatch 02/11/19 02/12/19 02/12/19 17:36 00:29 06:34 WBC RBC Hgb Hct MCHC RDW Plt Count 464 H Neutrophils # 8.5 H Neutrophils # (Manual) Lymphocytes # Lymphocytes # (Manual) Monocytes # Monocytes # (Manual) Eosinophils # Eosinophils # (Manual) APTT 33.1 H 70.3 H Sodium Potassium Chloride Carbon Dioxide BUN Creatinine Glucose POC Glucose (mg/dL) Calcium Ionized Calcium Bianka Phosphorus Magnesium Iron TIBC AST ALT Alkaline Phosphatase Total Protein Albumin Triglycerides Procalcitonin Free T3 pg/mL Urine Appearance Urine Protein Urine Blood Ur Leukocyte Esterase Urine RBC Urine WBC Urine WBC Clumps Urine Bacteria Urine Mucus Crossmatch 02/12/19 02/13/19 02/13/19 06:34 06:17 06:17 WBC 12.8 H RBC 3.78 L Hgb Hct MCHC RDW Plt Count Neutrophils # 11.1 H Neutrophils # (Manual) Lymphocytes # Lymphocytes # (Manual) Monocytes # Monocytes # (Manual) Eosinophils # Eosinophils # (Manual) APTT Sodium 147 H 148 H Potassium Chloride 111 H 113 H Carbon Dioxide BUN 20 H 24 H Creatinine 1.84 H 2.20 H Glucose 118 H 142 H POC Glucose (mg/dL) Calcium Ionized Calcium Bianka Phosphorus Magnesium 2.4 H Iron TIBC AST ALT Alkaline Phosphatase Total Protein Albumin Triglycerides Procalcitonin Free T3 pg/mL Urine Appearance Urine Protein Urine Blood Ur Leukocyte Esterase Urine RBC Urine WBC Urine WBC Clumps Urine Bacteria Urine Mucus Crossmatch 02/13/19 02/13/19 02/14/19 22:30 22:30 00:30 WBC 15.6 H RBC 3.63 L Hgb 10.6 L Hct MCHC 29.9 L RDW Plt Count Neutrophils # 13.0 H Neutrophils # (Manual) Lymphocytes # Lymphocytes # (Manual) Monocytes # 1.1 H Monocytes # (Manual) Eosinophils # Eosinophils # (Manual) APTT Sodium Potassium 3.4 L Chloride 110 H Carbon Dioxide BUN 33 H Creatinine 2.30 H Glucose 132 H POC Glucose (mg/dL) 114 H Calcium Ionized Calcium Bianka Phosphorus Magnesium Iron TIBC AST ALT Alkaline Phosphatase Total Protein Albumin Triglycerides Procalcitonin Free T3 pg/mL Urine Appearance Urine Protein Urine Blood Ur Leukocyte Esterase Urine RBC Urine WBC Urine WBC Clumps Urine Bacteria Urine Mucus Crossmatch 02/14/19 02/14/19 02/14/19 06:00 07:23 11:55 WBC RBC Hgb Hct MCHC RDW Plt Count Neutrophils # Neutrophils # (Manual) Lymphocytes # Lymphocytes # (Manual) Monocytes # Monocytes # (Manual) Eosinophils # Eosinophils # (Manual) APTT Sodium Potassium 3.3 L Chloride 112 H Carbon Dioxide BUN 34 H Creatinine 2.19 H Glucose 143 H POC Glucose (mg/dL) 140 H 162 H Calcium Ionized Calcium Bianka 5.5 H Phosphorus Magnesium Iron TIBC AST ALT Alkaline Phosphatase Total Protein Albumin Triglycerides Procalcitonin Free T3 pg/mL Urine Appearance Urine Protein Urine Blood Ur Leukocyte Esterase Urine RBC Urine WBC Urine WBC Clumps Urine Bacteria Urine Mucus Crossmatch 02/14/19 02/14/19 02/15/19 18:26 23:53 02:46 WBC RBC Hgb Hct MCHC RDW Plt Count Neutrophils # Neutrophils # (Manual) Lymphocytes # Lymphocytes # (Manual) Monocytes # Monocytes # (Manual) Eosinophils # Eosinophils # (Manual) APTT Sodium Potassium Chloride Carbon Dioxide BUN 34 H Creatinine 2.16 H Glucose 147 H POC Glucose (mg/dL) 145 H 139 H Calcium Ionized Calcium Bianka Phosphorus 2.1 L Magnesium Iron TIBC AST ALT Alkaline Phosphatase Total Protein Albumin Triglycerides Procalcitonin Free T3 pg/mL Urine Appearance Urine Protein Urine Blood Ur Leukocyte Esterase Urine RBC Urine WBC Urine WBC Clumps Urine Bacteria Urine Mucus Crossmatch 02/15/19 02/15/19 02/15/19 06:01 08:12 08:22 WBC 18.1 H RBC 3.38 L Hgb 10.3 L Hct 32.5 L MCHC RDW Plt Count Neutrophils # 14.8 H Neutrophils # (Manual) Lymphocytes # Lymphocytes # (Manual) Monocytes # Monocytes # (Manual) Eosinophils # Eosinophils # (Manual) APTT Sodium Potassium Chloride Carbon Dioxide BUN Creatinine Glucose POC Glucose (mg/dL) 172 H 137 H Calcium Ionized Calcium Bianka Phosphorus Magnesium Iron TIBC AST ALT Alkaline Phosphatase Total Protein Albumin Triglycerides Procalcitonin Free T3 pg/mL Urine Appearance Urine Protein Urine Blood Ur Leukocyte Esterase Urine RBC Urine WBC Urine WBC Clumps Urine Bacteria Urine Mucus Crossmatch 02/15/19 02/15/19 02/15/19 08:22 08:22 08:22 WBC RBC Hgb Hct MCHC RDW Plt Count Neutrophils # Neutrophils # (Manual) Lymphocytes # Lymphocytes # (Manual) Monocytes # Monocytes # (Manual) Eosinophils # Eosinophils # (Manual) APTT Sodium Potassium Chloride 108 H Carbon Dioxide BUN 35 H Creatinine 2.18 H Glucose 146 H POC Glucose (mg/dL) Calcium Ionized Calcium Bianka Phosphorus 2.2 L Magnesium Iron TIBC AST ALT Alkaline Phosphatase Total Protein 4.9 L Albumin 2.4 L Triglycerides Procalcitonin 2.79 H Free T3 pg/mL Urine Appearance Urine Protein Urine Blood Ur Leukocyte Esterase Urine RBC Urine WBC Urine WBC Clumps Urine Bacteria Urine Mucus Crossmatch 02/15/19 02/15/19 02/15/19 11:51 17:22 23:44 WBC RBC Hgb Hct MCHC RDW Plt Count Neutrophils # Neutrophils # (Manual) Lymphocytes # Lymphocytes # (Manual) Monocytes # Monocytes # (Manual) Eosinophils # Eosinophils # (Manual) APTT Sodium Potassium Chloride Carbon Dioxide BUN Creatinine Glucose POC Glucose (mg/dL) 170 H 170 H 186 H Calcium Ionized Calcium Bianka Phosphorus Magnesium Iron TIBC AST ALT Alkaline Phosphatase Total Protein Albumin Triglycerides Procalcitonin Free T3 pg/mL Urine Appearance Urine Protein Urine Blood Ur Leukocyte Esterase Urine RBC Urine WBC Urine WBC Clumps Urine Bacteria Urine Mucus Crossmatch 02/16/19 02/16/19 02/16/19 05:21 05:24 06:04 WBC 14.5 H RBC 3.32 L Hgb 10.1 L Hct 32.2 L MCHC RDW Plt Count Neutrophils # 12.3 H Neutrophils # (Manual) Lymphocytes # 0.8 L Lymphocytes # (Manual) Monocytes # Monocytes # (Manual) Eosinophils # Eosinophils # (Manual) APTT Sodium 135 L Potassium Chloride Carbon Dioxide 21 L BUN 41 H Creatinine 2.01 H Glucose 164 H POC Glucose (mg/dL) 220 H Calcium Ionized Calcium Bianka Phosphorus Magnesium 2.4 H Iron TIBC AST ALT Alkaline Phosphatase Total Protein Albumin Triglycerides Procalcitonin Free T3 pg/mL Urine Appearance Urine Protein Urine Blood Ur Leukocyte Esterase Urine RBC Urine WBC Urine WBC Clumps Urine Bacteria Urine Mucus Crossmatch 02/16/19 02/16/19 02/16/19 11:59 18:18 23:45 WBC RBC Hgb Hct MCHC RDW Plt Count Neutrophils # Neutrophils # (Manual) Lymphocytes # Lymphocytes # (Manual) Monocytes # Monocytes # (Manual) Eosinophils # Eosinophils # (Manual) APTT Sodium Potassium Chloride Carbon Dioxide BUN Creatinine Glucose POC Glucose (mg/dL) 224 H 242 H 181 H Calcium Ionized Calcium Bianka Phosphorus Magnesium Iron TIBC AST ALT Alkaline Phosphatase Total Protein Albumin Triglycerides Procalcitonin Free T3 pg/mL Urine Appearance Urine Protein Urine Blood Ur Leukocyte Esterase Urine RBC Urine WBC Urine WBC Clumps Urine Bacteria Urine Mucus Crossmatch 02/17/19 02/17/19 02/17/19 03:53 03:55 06:02 WBC 13.8 H RBC 3.46 L Hgb 10.2 L Hct 33.1 L MCHC 30.9 L RDW Plt Count Neutrophils # 11.6 H Neutrophils # (Manual) Lymphocytes # 0.7 L Lymphocytes # (Manual) Monocytes # Monocytes # (Manual) Eosinophils # Eosinophils # (Manual) APTT Sodium 135 L Potassium Chloride Carbon Dioxide BUN 41 H Creatinine 1.94 H Glucose 175 H POC Glucose (mg/dL) 201 H Calcium Ionized Calcium Bianka Phosphorus Magnesium Iron TIBC AST ALT Alkaline Phosphatase Total Protein Albumin Triglycerides Procalcitonin Free T3 pg/mL Urine Appearance Urine Protein Urine Blood Ur Leukocyte Esterase Urine RBC Urine WBC Urine WBC Clumps Urine Bacteria Urine Mucus Crossmatch 02/17/19 02/17/19 02/18/19 11:56 18:32 00:31 WBC RBC Hgb Hct MCHC RDW Plt Count Neutrophils # Neutrophils # (Manual) Lymphocytes # Lymphocytes # (Manual) Monocytes # Monocytes # (Manual) Eosinophils # Eosinophils # (Manual) APTT Sodium Potassium Chloride Carbon Dioxide BUN Creatinine Glucose POC Glucose (mg/dL) 137 H 168 H 171 H Calcium Ionized Calcium Bianka Phosphorus Magnesium Iron TIBC AST ALT Alkaline Phosphatase Total Protein Albumin Triglycerides Procalcitonin Free T3 pg/mL Urine Appearance Urine Protein Urine Blood Ur Leukocyte Esterase Urine RBC Urine WBC Urine WBC Clumps Urine Bacteria Urine Mucus Crossmatch 02/18/19 02/18/19 02/18/19 04:22 04:24 05:27 WBC 12.6 H RBC 3.19 L Hgb 9.5 L Hct 30.0 L MCHC RDW Plt Count Neutrophils # Neutrophils # (Manual) Lymphocytes # Lymphocytes # (Manual) Monocytes # Monocytes # (Manual) Eosinophils # Eosinophils # (Manual) APTT Sodium 136 L Potassium Chloride Carbon Dioxide 21 L BUN 42 H Creatinine 1.78 H Glucose 145 H POC Glucose (mg/dL) 186 H Calcium Ionized Calcium Bianka Phosphorus Magnesium Iron TIBC AST ALT Alkaline Phosphatase Total Protein Albumin Triglycerides Procalcitonin Free T3 pg/mL Urine Appearance Urine Protein Urine Blood Ur Leukocyte Esterase Urine RBC Urine WBC Urine WBC Clumps Urine Bacteria Urine Mucus Crossmatch 02/18/19 02/18/19 02/18/19 05:55 11:43 16:55 WBC RBC Hgb Hct MCHC RDW Plt Count Neutrophils # Neutrophils # (Manual) Lymphocytes # Lymphocytes # (Manual) Monocytes # Monocytes # (Manual) Eosinophils # Eosinophils # (Manual) APTT Sodium Potassium Chloride Carbon Dioxide BUN Creatinine Glucose POC Glucose (mg/dL) 177 H 164 H 268 H Calcium Ionized Calcium Bianka Phosphorus Magnesium Iron TIBC AST ALT Alkaline Phosphatase Total Protein Albumin Triglycerides Procalcitonin Free T3 pg/mL Urine Appearance Urine Protein Urine Blood Ur Leukocyte Esterase Urine RBC Urine WBC Urine WBC Clumps Urine Bacteria Urine Mucus Crossmatch 02/18/19 02/19/19 02/19/19 20:54 05:36 05:36 WBC 14.9 H RBC 3.14 L Hgb 9.6 L Hct 29.4 L MCHC RDW Plt Count Neutrophils # 12.2 H Neutrophils # (Manual) Lymphocytes # 0.9 L Lymphocytes # (Manual) Monocytes # Monocytes # (Manual) Eosinophils # Eosinophils # (Manual) APTT Sodium 135 L Potassium Chloride Carbon Dioxide BUN 45 H Creatinine 1.82 H Glucose 124 H POC Glucose (mg/dL) 217 H Calcium Ionized Calcium Bianka Phosphorus Magnesium Iron TIBC AST ALT Alkaline Phosphatase Total Protein Albumin Triglycerides Procalcitonin Free T3 pg/mL Urine Appearance Urine Protein Urine Blood Ur Leukocyte Esterase Urine RBC Urine WBC Urine WBC Clumps Urine Bacteria Urine Mucus Crossmatch 02/19/19 02/19/1919 06:57 11:57 16:57 WBC RBC Hgb Hct MCHC RDW Plt Count Neutrophils # Neutrophils # (Manual) Lymphocytes # Lymphocytes # (Manual) Monocytes # Monocytes # (Manual) Eosinophils # Eosinophils # (Manual) APTT Sodium Potassium Chloride Carbon Dioxide BUN Creatinine Glucose POC Glucose (mg/dL) 134 H 180 H 124 H Calcium Ionized Calcium Bianka Phosphorus Magnesium Iron TIBC AST ALT Alkaline Phosphatase Total Protein Albumin Triglycerides Procalcitonin Free T3 pg/mL Urine Appearance Urine Protein Urine Blood Ur Leukocyte Esterase Urine RBC Urine WBC Urine WBC Clumps Urine Bacteria Urine Mucus Crossmatch 02/19/19 02/20/19 02/20/19 20:55 05:30 05:30 WBC 13.8 H RBC 3.31 L Hgb 9.6 L Hct 30.9 L MCHC 30.9 L RDW Plt Count Neutrophils # 11.0 H Neutrophils # (Manual) Lymphocytes # 0.7 L Lymphocytes # (Manual) Monocytes # Monocytes # (Manual) Eosinophils # Eosinophils # (Manual) APTT Sodium 134 L Potassium Chloride Carbon Dioxide BUN 49 H Creatinine 1.72 H Glucose 159 H POC Glucose (mg/dL) 139 H Calcium 8.2 L Ionized Calcium Bianka Phosphorus Magnesium 2.4 H Iron TIBC AST ALT Alkaline Phosphatase Total Protein Albumin Triglycerides 177 H Procalcitonin Free T3 pg/mL Urine Appearance Urine Protein Urine Blood Ur Leukocyte Esterase Urine RBC Urine WBC Urine WBC Clumps Urine Bacteria Urine Mucus Crossmatch 02/20/19 02/20/19 02/20/19 06:54 11:59 17:10 WBC RBC Hgb Hct MCHC RDW Plt Count Neutrophils # Neutrophils # (Manual) Lymphocytes # Lymphocytes # (Manual) Monocytes # Monocytes # (Manual) Eosinophils # Eosinophils # (Manual) APTT Sodium Potassium Chloride Carbon Dioxide BUN Creatinine Glucose POC Glucose (mg/dL) 149 H 199 H 145 H Calcium Ionized Calcium Bianka Phosphorus Magnesium Iron TIBC AST ALT Alkaline Phosphatase Total Protein Albumin Triglycerides Procalcitonin Free T3 pg/mL Urine Appearance Urine Protein Urine Blood Ur Leukocyte Esterase Urine RBC Urine WBC Urine WBC Clumps Urine Bacteria Urine Mucus Crossmatch 02/20/19 02/21/19 02/21/19 20:46 05:11 05:11 WBC 14.3 H RBC 2.81 L Hgb 8.4 L Hct 26.3 L MCHC RDW Plt Count 515 H Neutrophils # 11.7 H Neutrophils # (Manual) Lymphocytes # 0.9 L Lymphocytes # (Manual) Monocytes # Monocytes # (Manual) Eosinophils # Eosinophils # (Manual) APTT Sodium 131 L Potassium Chloride Carbon Dioxide BUN 52 H Creatinine 1.77 H Glucose 150 H POC Glucose (mg/dL) 206 H Calcium Ionized Calcium Bianka Phosphorus Magnesium Iron TIBC AST ALT Alkaline Phosphatase Total Protein Albumin Triglycerides Procalcitonin Free T3 pg/mL Urine Appearance Urine Protein Urine Blood Ur Leukocyte Esterase Urine RBC Urine WBC Urine WBC Clumps Urine Bacteria Urine Mucus Crossmatch 02/21/19 02/21/19 02/21/19 06:56 11:46 16:54 WBC RBC Hgb Hct MCHC RDW Plt Count Neutrophils # Neutrophils # (Manual) Lymphocytes # Lymphocytes # (Manual) Monocytes # Monocytes # (Manual) Eosinophils # Eosinophils # (Manual) APTT Sodium Potassium Chloride Carbon Dioxide BUN Creatinine Glucose POC Glucose (mg/dL) 170 H 126 H 172 H Calcium Ionized Calcium Bianka Phosphorus Magnesium Iron TIBC AST ALT Alkaline Phosphatase Total Protein Albumin Triglycerides Procalcitonin Free T3 pg/mL Urine Appearance Urine Protein Urine Blood Ur Leukocyte Esterase Urine RBC Urine WBC Urine WBC Clumps Urine Bacteria Urine Mucus Crossmatch 02/21/19 02/22/19 02/22/19 21:20 04:45 04:45 WBC 14.9 H RBC 2.86 L Hgb 8.5 L Hct 26.4 L MCHC RDW Plt Count 585 H Neutrophils # 12.0 H Neutrophils # (Manual) Lymphocytes # 0.9 L Lymphocytes # (Manual) Monocytes # Monocytes # (Manual) Eosinophils # Eosinophils # (Manual) APTT Sodium 132 L Potassium Chloride Carbon Dioxide BUN 53 H Creatinine 1.99 H Glucose 109 H POC Glucose (mg/dL) 154 H Calcium Ionized Calcium Bianka Phosphorus Magnesium Iron TIBC AST ALT Alkaline Phosphatase Total Protein Albumin Triglycerides Procalcitonin Free T3 pg/mL Urine Appearance Urine Protein Urine Blood Ur Leukocyte Esterase Urine RBC Urine WBC Urine WBC Clumps Urine Bacteria Urine Mucus Crossmatch 02/22/19 02/22/19 02/22/19 07:01 12:03 16:40 WBC RBC Hgb Hct MCHC RDW Plt Count Neutrophils # Neutrophils # (Manual) Lymphocytes # Lymphocytes # (Manual) Monocytes # Monocytes # (Manual) Eosinophils # Eosinophils # (Manual) APTT Sodium Potassium Chloride Carbon Dioxide BUN Creatinine Glucose POC Glucose (mg/dL) 136 H 171 H 157 H Calcium Ionized Calcium Bianka Phosphorus Magnesium Iron TIBC AST ALT Alkaline Phosphatase Total Protein Albumin Triglycerides Procalcitonin Free T3 pg/mL Urine Appearance Urine Protein Urine Blood Ur Leukocyte Esterase Urine RBC Urine WBC Urine WBC Clumps Urine Bacteria Urine Mucus Crossmatch 02/22/19 02/23/19 02/23/19 20:41 05:00 05:02 WBC 16.2 H RBC 2.85 L Hgb 8.7 L Hct 26.5 L MCHC RDW Plt Count 721 H Neutrophils # 13.5 H Neutrophils # (Manual) Lymphocytes # 0.8 L Lymphocytes # (Manual) Monocytes # Monocytes # (Manual) Eosinophils # Eosinophils # (Manual) APTT Sodium 133 L Potassium Chloride Carbon Dioxide 21 L BUN 56 H Creatinine 2.17 H Glucose 155 H POC Glucose (mg/dL) 117 H Calcium Ionized Calcium Bianka Phosphorus Magnesium 2.4 H Iron TIBC AST 50 H ALT 48 H Alkaline Phosphatase 344 H Total Protein 5.8 L Albumin 2.7 L Triglycerides Procalcitonin Free T3 pg/mL Urine Appearance Urine Protein Urine Blood Ur Leukocyte Esterase Urine RBC Urine WBC Urine WBC Clumps Urine Bacteria Urine Mucus Crossmatch 02/23/19 02/23/19 02/23/19 06:49 08:13 12:47 WBC RBC Hgb Hct MCHC RDW Plt Count Neutrophils # Neutrophils # (Manual) Lymphocytes # Lymphocytes # (Manual) Monocytes # Monocytes # (Manual) Eosinophils # Eosinophils # (Manual) APTT Sodium Potassium Chloride Carbon Dioxide BUN Creatinine Glucose POC Glucose (mg/dL) 181 H 197 H 179 H Calcium Ionized Calcium [place] Phosphorus Magnesium Iron TIBC AST ALT Alkaline Phosphatase Total Protein Albumin Triglycerides Procalcitonin Free T3 pg/mL Urine Appearance Urine Protein Urine Blood Ur Leukocyte Esterase Urine RBC Urine WBC Urine WBC Clumps Urine Bacteria Urine Mucus Crossmatch 02/23/19 02/23/19 02/24/19 17:14 23:31 04:00 WBC RBC Hgb Hct MCHC RDW Plt Count Neutrophils # Neutrophils # (Manual) Lymphocytes # Lymphocytes # (Manual) Monocytes # Monocytes # (Manual) Eosinophils # Eosinophils # (Manual) APTT Sodium 132 L Potassium Chloride Carbon Dioxide BUN 63 H Creatinine 2.44 H Glucose 197 H POC Glucose (mg/dL) 156 H 165 H Calcium Ionized Calcium [place] Phosphorus 4.7 H Magnesium Iron TIBC AST ALT Alkaline Phosphatase 221 H Total Protein 5.0 L Albumin 2.3 L Triglycerides Procalcitonin Free T3 pg/mL Urine Appearance Urine Protein Urine Blood Ur Leukocyte Esterase Urine RBC Urine WBC Urine WBC Clumps Urine Bacteria Urine Mucus Crossmatch 02/24/19 02/24/19 02/24/19 04:00 06:49 12:05 WBC 14.0 H RBC 2.69 L Hgb 7.7 L Hct 25.0 L MCHC 30.8 L RDW Plt Count 688 H Neutrophils # 11.5 H Neutrophils # (Manual) Lymphocytes # 0.8 L Lymphocytes # (Manual) Monocytes # Monocytes # (Manual) Eosinophils # Eosinophils # (Manual) APTT Sodium Potassium Chloride Carbon Dioxide BUN Creatinine Glucose POC Glucose (mg/dL) 155 H 179 H Calcium Ionized Calcium [place] Phosphorus Magnesium Iron TIBC AST ALT Alkaline Phosphatase Total Protein Albumin Triglycerides Procalcitonin Free T3 pg/mL Urine Appearance Urine Protein Urine Blood Ur Leukocyte Esterase Urine RBC Urine WBC Urine WBC Clumps Urine Bacteria Urine Mucus Crossmatch 02/24/19 02/24/19 02/24/19 16:55 18:34 21:11 WBC RBC Hgb Hct MCHC RDW Plt Count Neutrophils # Neutrophils # (Manual) Lymphocytes # Lymphocytes # (Manual) Monocytes # Monocytes # (Manual) Eosinophils # Eosinophils # (Manual) APTT Sodium Potassium Chloride Carbon Dioxide BUN Creatinine Glucose POC Glucose (mg/dL) 137 H 144 H 133 H Calcium Ionized Calcium [place] Phosphorus Magnesium Iron TIBC AST ALT Alkaline Phosphatase Total Protein Albumin Triglycerides Procalcitonin Free T3 pg/mL Urine Appearance Urine Protein Urine Blood Ur Leukocyte Esterase Urine RBC Urine WBC Urine WBC Clumps Urine Bacteria Urine Mucus Crossmatch 02/25/19 02/25/19 02/25/19 03:51 03:51 07:05 WBC 13.3 H RBC 2.90 L Hgb 8.3 L Hct 26.5 L MCHC RDW Plt Count 734 H Neutrophils # 10.7 H Neutrophils # (Manual) Lymphocytes # 0.8 L Lymphocytes # (Manual) Monocytes # Monocytes # (Manual) Eosinophils # Eosinophils # (Manual) APTT Sodium 135 L Potassium Chloride Carbon Dioxide BUN 63 H Creatinine 2.38 H Glucose 142 H POC Glucose (mg/dL) 158 H Calcium Ionized Calcium [place] Phosphorus Magnesium Iron TIBC AST ALT Alkaline Phosphatase 225 H Total Protein 5.2 L Albumin 2.4 L Triglycerides Procalcitonin Free T3 pg/mL Urine Appearance Urine Protein Urine Blood Ur Leukocyte Esterase Urine RBC Urine WBC Urine WBC Clumps Urine Bacteria Urine Mucus Crossmatch 02/25/19 02/25/19 02/25/19 08:50 11:41 16:52 WBC RBC Hgb Hct MCHC RDW Plt Count Neutrophils # Neutrophils # (Manual) Lymphocytes # Lymphocytes # (Manual) Monocytes # Monocytes # (Manual) Eosinophils # Eosinophils # (Manual) APTT Sodium Potassium Chloride Carbon Dioxide BUN Creatinine Glucose POC Glucose (mg/dL) 138 H 128 H Calcium Ionized Calcium [place] Phosphorus Magnesium Iron TIBC AST ALT Alkaline Phosphatase Total Protein Albumin Triglycerides Procalcitonin Free T3 pg/mL Urine Appearance Cloudy H Urine Protein 1+ H Urine Blood Large H Ur Leukocyte Esterase Large H Urine RBC >182 H Urine WBC >182 H Urine WBC Clumps Many H Urine Bacteria Occasional H Urine Mucus Crossmatch 02/25/19 02/26/19 02/26/19 21:29 05:02 05:05 WBC 11.4 H RBC 2.51 L Hgb 7.5 L Hct 23.0 L MCHC RDW Plt Count 712 H Neutrophils # 8.3 H Neutrophils # (Manual) Lymphocytes # 0.9 L Lymphocytes # (Manual) Monocytes # Monocytes # (Manual) Eosinophils # 0.9 H Eosinophils # (Manual) APTT Sodium 135 L Potassium Chloride Carbon Dioxide BUN 57 H Creatinine 2.23 H Glucose 129 H POC Glucose (mg/dL) 155 H Calcium Ionized Calcium [place] 5.5 H Phosphorus Magnesium Iron TIBC AST ALT Alkaline Phosphatase Total Protein Albumin Triglycerides 234 H Procalcitonin Free T3 pg/mL Urine Appearance Urine Protein Urine Blood Ur Leukocyte Esterase Urine RBC Urine WBC Urine WBC Clumps Urine Bacteria Urine Mucus Crossmatch 02/26/19 02/26/19 02/26/19 06:43 11:55 16:39 WBC RBC Hgb Hct MCHC RDW Plt Count Neutrophils # Neutrophils # (Manual) Lymphocytes # Lymphocytes # (Manual) Monocytes # Monocytes # (Manual) Eosinophils # Eosinophils # (Manual) APTT Sodium Potassium Chloride Carbon Dioxide BUN Creatinine Glucose POC Glucose (mg/dL) 152 H 148 H 147 H Calcium Ionized Calcium [place] Phosphorus Magnesium Iron TIBC AST ALT Alkaline Phosphatase Total Protein Albumin Triglycerides Procalcitonin Free T3 pg/mL Urine Appearance Urine Protein Urine Blood Ur Leukocyte Esterase Urine RBC Urine WBC Urine WBC Clumps Urine Bacteria Urine Mucus Crossmatch 02/26/19 02/26/19 02/27/19 20:26 21:00 05:58 WBC RBC Hgb Hct MCHC RDW Plt Count Neutrophils # Neutrophils # (Manual) Lymphocytes # Lymphocytes # (Manual) Monocytes # Monocytes # (Manual) Eosinophils # Eosinophils # (Manual) APTT Sodium 136 L Potassium Chloride Carbon Dioxide BUN 54 H Creatinine 1.96 H Glucose 150 H POC Glucose (mg/dL) 149 H 148 H Calcium Ionized Calcium [place] Phosphorus Magnesium Iron TIBC AST ALT Alkaline Phosphatase Total Protein Albumin Triglycerides Procalcitonin Free T3 pg/mL Urine Appearance Urine Protein Urine Blood Ur Leukocyte Esterase Urine RBC Urine WBC Urine WBC Clumps Urine Bacteria Urine Mucus Crossmatch 02/27/19 02/27/19 02/27/19 05:58 06:50 12:01 WBC RBC 2.82 L Hgb 8.0 L Hct 25.1 L MCHC RDW Plt Count 658 H Neutrophils # Neutrophils # (Manual) Lymphocytes # Lymphocytes # (Manual) Monocytes # Monocytes # (Manual) 1.08 H Eosinophils # Eosinophils # (Manual) 0.78 H APTT Sodium Potassium Chloride Carbon Dioxide BUN Creatinine Glucose POC Glucose (mg/dL) 148 H 157 H Calcium Ionized Calcium [place] Phosphorus Magnesium Iron TIBC AST ALT Alkaline Phosphatase Total Protein Albumin Triglycerides Procalcitonin Free T3 pg/mL Urine Appearance Urine Protein Urine Blood Ur Leukocyte Esterase Urine RBC Urine WBC Urine WBC Clumps Urine Bacteria Urine Mucus Crossmatch 02/27/19 02/27/19 02/28/19 17:16 21:17 05:25 WBC RBC Hgb Hct MCHC RDW Plt Count Neutrophils # Neutrophils # (Manual) Lymphocytes # Lymphocytes # (Manual) Monocytes # Monocytes # (Manual) Eosinophils # Eosinophils # (Manual) APTT Sodium 135 L Potassium 3.2 L Chloride Carbon Dioxide BUN 45 H Creatinine 1.75 H Glucose 144 H POC Glucose (mg/dL) 174 H 139 H Calcium Ionized Calcium [place] Phosphorus Magnesium Iron TIBC AST ALT Alkaline Phosphatase Total Protein Albumin Triglycerides Procalcitonin Free T3 pg/mL Urine Appearance Urine Protein Urine Blood Ur Leukocyte Esterase Urine RBC Urine WBC Urine WBC Clumps Urine Bacteria Urine Mucus Crossmatch 02/28/19 02/28/19 02/28/19 05:25 06:46 11:52 WBC RBC 2.99 L Hgb 8.7 L Hct 26.8 L MCHC RDW Plt Count 676 H Neutrophils # Neutrophils # (Manual) 7.84 H Lymphocytes # Lymphocytes # (Manual) Monocytes # Monocytes # (Manual) Eosinophils # Eosinophils # (Manual) APTT Sodium Potassium Chloride Carbon Dioxide BUN Creatinine Glucose POC Glucose (mg/dL) 166 H 205 H Calcium Ionized Calcium [place] Phosphorus Magnesium Iron TIBC AST ALT Alkaline Phosphatase Total Protein Albumin Triglycerides Procalcitonin Free T3 pg/mL Urine Appearance Urine Protein Urine Blood Ur Leukocyte Esterase Urine RBC Urine WBC Urine WBC Clumps Urine Bacteria Urine Mucus Crossmatch 02/28/19 02/28/19 03/01/19 16:50 20:22 04:27 WBC RBC Hgb Hct MCHC RDW Plt Count Neutrophils # Neutrophils # (Manual) Lymphocytes # Lymphocytes # (Manual) Monocytes # Monocytes # (Manual) Eosinophils # Eosinophils # (Manual) APTT Sodium 136 L Potassium Chloride Carbon Dioxide BUN 42 H Creatinine 1.74 H Glucose 154 H POC Glucose (mg/dL) 179 H 141 H Calcium Ionized Calcium [place] Phosphorus Magnesium Iron TIBC AST ALT Alkaline Phosphatase Total Protein Albumin Triglycerides Procalcitonin Free T3 pg/mL Urine Appearance Urine Protein Urine Blood Ur Leukocyte Esterase Urine RBC Urine WBC Urine WBC Clumps Urine Bacteria Urine Mucus Crossmatch 03/01/19 03/01/19 03/01/19 04:27 06:40 07:55 WBC 11.7 H RBC 2.70 L Hgb 8.1 L Hct 24.7 L MCHC RDW Plt Count 601 H Neutrophils # Neutrophils # (Manual) Lymphocytes # Lymphocytes # (Manual) Monocytes # Monocytes # (Manual) Eosinophils # Eosinophils # (Manual) APTT Sodium Potassium Chloride Carbon Dioxide BUN Creatinine Glucose POC Glucose (mg/dL) 162 H 161 H Calcium Ionized Calcium [place] Phosphorus Magnesium Iron TIBC AST ALT Alkaline Phosphatase Total Protein Albumin Triglycerides Procalcitonin Free T3 pg/mL Urine Appearance Urine Protein Urine Blood Ur Leukocyte Esterase Urine RBC Urine WBC Urine WBC Clumps Urine Bacteria Urine Mucus Crossmatch 03/01/19 03/01/19 03/01/19 12:01 16:48 18:20 WBC RBC Hgb Hct MCHC RDW Plt Count Neutrophils # Neutrophils # (Manual) Lymphocytes # Lymphocytes # (Manual) Monocytes # Monocytes # (Manual) Eosinophils # Eosinophils # (Manual) APTT Sodium Potassium Chloride Carbon Dioxide BUN Creatinine Glucose POC Glucose (mg/dL) 145 H 158 H Calcium Ionized Calcium [place] Phosphorus Magnesium Iron TIBC AST ALT Alkaline Phosphatase Total Protein Albumin Triglycerides Procalcitonin Free T3 pg/mL Urine Appearance Urine Protein Trace H Urine Blood Small H Ur Leukocyte Esterase Moderate H Urine RBC 13 H Urine WBC 33 H Urine WBC Clumps Urine Bacteria Rare H Urine Mucus Rare H Crossmatch 03/01/19 03/02/19 03/02/19 20:43 04:58 04:58 WBC 12.0 H RBC 2.88 L Hgb 8.4 L Hct 26.7 L MCHC RDW Plt Count 516 H Neutrophils # Neutrophils # (Manual) Lymphocytes # Lymphocytes # (Manual) Monocytes # Monocytes # (Manual) Eosinophils # Eosinophils # (Manual) APTT Sodium Potassium Chloride 111 H Carbon Dioxide BUN 44 H Creatinine 1.70 H Glucose 120 H POC Glucose (mg/dL) 108 H Calcium Ionized Calcium [place] Phosphorus Magnesium Iron TIBC AST ALT Alkaline Phosphatase Total Protein Albumin Triglycerides Procalcitonin Free T3 pg/mL Urine Appearance Urine Protein Urine Blood Ur Leukocyte Esterase Urine RBC Urine WBC Urine WBC Clumps Urine Bacteria Urine Mucus Crossmatch 03/02/19 03/02/19 03/02/19 07:07 11:27 11:58 WBC RBC Hgb Hct MCHC RDW Plt Count Neutrophils # Neutrophils # (Manual) Lymphocytes # Lymphocytes # (Manual) Monocytes # Monocytes # (Manual) Eosinophils # Eosinophils # (Manual) APTT Sodium Potassium Chloride Carbon Dioxide BUN Creatinine Glucose POC Glucose (mg/dL) 139 H 131 H 132 H Calcium Ionized Calcium [place] Phosphorus Magnesium Iron TIBC AST ALT Alkaline Phosphatase Total Protein Albumin Triglycerides Procalcitonin Free T3 pg/mL Urine Appearance Urine Protein Urine Blood Ur Leukocyte Esterase Urine RBC Urine WBC Urine WBC Clumps Urine Bacteria Urine Mucus Crossmatch 03/02/19 03/02/19 03/02/19 16:52 17:27 21:06 WBC RBC Hgb Hct MCHC RDW Plt Count Neutrophils # Neutrophils # (Manual) Lymphocytes # Lymphocytes # (Manual) Monocytes # Monocytes # (Manual) Eosinophils # Eosinophils # (Manual) APTT Sodium Potassium Chloride Carbon Dioxide BUN Creatinine Glucose POC Glucose (mg/dL) 135 H 140 H 137 H Calcium Ionized Calcium [place] Phosphorus Magnesium Iron TIBC AST ALT Alkaline Phosphatase Total Protein Albumin Triglycerides Procalcitonin Free T3 pg/mL Urine Appearance Urine Protein Urine Blood Ur Leukocyte Esterase Urine RBC Urine WBC Urine WBC Clumps Urine Bacteria Urine Mucus Crossmatch 03/03/19 03/03/19 03/03/19 05:14 05:18 07:05 WBC 11.3 H RBC 2.80 L Hgb 8.1 L Hct 25.3 L MCHC RDW Plt Count 479 H Neutrophils # Neutrophils # (Manual) Lymphocytes # Lymphocytes # (Manual) Monocytes # Monocytes # (Manual) Eosinophils # Eosinophils # (Manual) APTT Sodium Potassium Chloride 109 H Carbon Dioxide BUN 43 H Creatinine 1.79 H Glucose 113 H POC Glucose (mg/dL) 128 H Calcium Ionized Calcium [place] Phosphorus Magnesium Iron TIBC AST ALT Alkaline Phosphatase 171 H Total Protein 6.1 L Albumin 2.8 L Triglycerides Procalcitonin Free T3 pg/mL Urine Appearance Urine Protein Urine Blood Ur Leukocyte Esterase Urine RBC Urine WBC Urine WBC Clumps Urine Bacteria Urine Mucus Crossmatch 03/03/19 03/03/19 03/03/19 11:58 16:55 20:25 WBC RBC Hgb Hct MCHC RDW Plt Count Neutrophils # Neutrophils # (Manual) Lymphocytes # Lymphocytes # (Manual) Monocytes # Monocytes # (Manual) Eosinophils # Eosinophils # (Manual) APTT Sodium Potassium Chloride Carbon Dioxide BUN Creatinine Glucose POC Glucose (mg/dL) 136 H 102 H 109 H Calcium Ionized Calcium [place] Phosphorus Magnesium Iron TIBC AST ALT Alkaline Phosphatase Total Protein Albumin Triglycerides Procalcitonin Free T3 pg/mL Urine Appearance Urine Protein Urine Blood Ur Leukocyte Esterase Urine RBC Urine WBC Urine WBC Clumps Urine Bacteria Urine Mucus Crossmatch 03/04/19 03/04/19 03/04/19 04:25 04:25 04:25 WBC RBC 2.37 L Hgb 6.9 L* Hct 21.5 L MCHC RDW Plt Count Neutrophils # Neutrophils # (Manual) Lymphocytes # Lymphocytes # (Manual) Monocytes # Monocytes # (Manual) Eosinophils # Eosinophils # (Manual) APTT Sodium Potassium Chloride 114 H Carbon Dioxide BUN 39 H Creatinine 1.71 H Glucose POC Glucose (mg/dL) Calcium Ionized Calcium [place] Phosphorus Magnesium Iron 24 L TIBC 198 L AST ALT Alkaline Phosphatase Total Protein 5.4 L Albumin 2.4 L Triglycerides Procalcitonin Free T3 pg/mL Urine Appearance Urine Protein Urine Blood Ur Leukocyte Esterase Urine RBC Urine WBC Urine WBC Clumps Urine Bacteria Urine Mucus Crossmatch 03/04/19 03/04/19 03/04/19 07:04 11:46 12:02 WBC RBC Hgb Hct MCHC RDW Plt Count Neutrophils # Neutrophils # (Manual) Lymphocytes # Lymphocytes # (Manual) Monocytes # Monocytes # (Manual) Eosinophils # Eosinophils # (Manual) APTT Sodium Potassium Chloride Carbon Dioxide BUN Creatinine Glucose POC Glucose (mg/dL) 101 H 146 H 121 H Calcium Ionized Calcium [place] Phosphorus Magnesium Iron TIBC AST ALT Alkaline Phosphatase Total Protein Albumin Triglycerides Procalcitonin Free T3 pg/mL Urine Appearance Urine Protein Urine Blood Ur Leukocyte Esterase Urine RBC Urine WBC Urine WBC Clumps Urine Bacteria Urine Mucus Crossmatch 03/04/19 03/04/19 03/05/19 16:59 20:08 04:36 WBC RBC 2.25 L Hgb 6.4 L* Hct 20.4 L MCHC RDW Plt Count Neutrophils # Neutrophils # (Manual) Lymphocytes # Lymphocytes # (Manual) Monocytes # Monocytes # (Manual) Eosinophils # Eosinophils # (Manual) APTT Sodium Potassium Chloride Carbon Dioxide BUN Creatinine Glucose POC Glucose (mg/dL) 110 H 101 H Calcium Ionized Calcium [place] Phosphorus Magnesium Iron TIBC AST ALT Alkaline Phosphatase Total Protein Albumin Triglycerides Procalcitonin Free T3 pg/mL Urine Appearance Urine Protein Urine Blood Ur Leukocyte Esterase Urine RBC Urine WBC Urine WBC Clumps Urine Bacteria Urine Mucus Crossmatch 03/05/19 03/05/19 03/05/19 04:36 07:00 07:25 WBC RBC Hgb Hct MCHC RDW Plt Count Neutrophils # Neutrophils # (Manual) Lymphocytes # Lymphocytes # (Manual) Monocytes # Monocytes # (Manual) Eosinophils # Eosinophils # (Manual) APTT Sodium Potassium Chloride 110 H Carbon Dioxide BUN 32 H Creatinine 1.87 H Glucose POC Glucose (mg/dL) 101 H Calcium Ionized Calcium [place] Phosphorus Magnesium Iron TIBC AST ALT Alkaline Phosphatase Total Protein 6.0 L Albumin 2.7 L Triglycerides Procalcitonin Free T3 pg/mL Urine Appearance Urine Protein Urine Blood Ur Leukocyte Esterase Urine RBC Urine WBC Urine WBC Clumps Urine Bacteria Urine Mucus Crossmatch See Detail 03/05/19 03/05/19 03/05/19 12:13 19:50 20:44 WBC RBC 2.90 L Hgb 8.4 L D Hct 25.8 L MCHC RDW 15.6 H Plt Count Neutrophils # Neutrophils # (Manual) Lymphocytes # Lymphocytes # (Manual) Monocytes # Monocytes # (Manual) Eosinophils # Eosinophils # (Manual) APTT Sodium Potassium Chloride Carbon Dioxide BUN Creatinine Glucose POC Glucose (mg/dL) 143 H 150 H Calcium Ionized Calcium [place] Phosphorus Magnesium Iron TIBC AST ALT Alkaline Phosphatase Total Protein Albumin Triglycerides Procalcitonin Free T3 pg/mL Urine Appearance Urine Protein Urine Blood Ur Leukocyte Esterase Urine RBC Urine WBC Urine WBC Clumps Urine Bacteria Urine Mucus Crossmatch 03/06/19 03/06/19 03/06/19 04:18 04:18 20:55 WBC RBC 3.04 L Hgb 8.8 L Hct 26.9 L MCHC RDW Plt Count Neutrophils # Neutrophils # (Manual) Lymphocytes # Lymphocytes # (Manual) Monocytes # Monocytes # (Manual) Eosinophils # Eosinophils # (Manual) APTT Sodium Potassium Chloride 108 H Carbon Dioxide BUN 26 H Creatinine 1.83 H Glucose POC Glucose (mg/dL) 74 L Calcium Ionized Calcium [place] Phosphorus Magnesium Iron TIBC AST ALT Alkaline Phosphatase Total Protein Albumin Triglycerides Procalcitonin Free T3 pg/mL Urine Appearance Urine Protein Urine Blood Ur Leukocyte Esterase Urine RBC Urine WBC Urine WBC Clumps Urine Bacteria Urine Mucus Crossmatch 03/07/19 03/07/19 03/07/19 10:02 11:42 17:02 WBC RBC Hgb Hct MCHC RDW Plt Count Neutrophils # Neutrophils # (Manual) Lymphocytes # Lymphocytes # (Manual) Monocytes # Monocytes # (Manual) Eosinophils # Eosinophils # (Manual) APTT Sodium Potassium 3.3 L Chloride 108 H Carbon Dioxide BUN 20 H Creatinine 1.65 H Glucose POC Glucose (mg/dL) 101 H 105 H Calcium Ionized Calcium [place] Phosphorus Magnesium Iron TIBC AST ALT Alkaline Phosphatase Total Protein Albumin Triglycerides Procalcitonin Free T3 pg/mL Urine Appearance Urine Protein Urine Blood Ur Leukocyte Esterase Urine RBC Urine WBC Urine WBC Clumps Urine Bacteria Urine Mucus Crossmatch 03/07/19 03/08/19 03/08/19 21:57 06:47 11:38 WBC RBC Hgb Hct MCHC RDW Plt Count Neutrophils # Neutrophils # (Manual) Lymphocytes # Lymphocytes # (Manual) Monocytes # Monocytes # (Manual) Eosinophils # Eosinophils # (Manual) APTT Sodium Potassium Chloride Carbon Dioxide BUN Creatinine Glucose POC Glucose (mg/dL) 140 H 153 H 150 H Calcium Ionized Calcium [place] Phosphorus Magnesium Iron TIBC AST ALT Alkaline Phosphatase Total Protein Albumin Triglycerides Procalcitonin Free T3 pg/mL Urine Appearance Urine Protein Urine Blood Ur Leukocyte Esterase Urine RBC Urine WBC Urine WBC Clumps Urine Bacteria Urine Mucus Crossmatch 03/08/19 03/08/19 03/09/19 16:56 20:32 05:35 WBC RBC 2.94 L Hgb 8.3 L Hct 26.9 L MCHC 30.9 L RDW 16.9 H Plt Count Neutrophils # Neutrophils # (Manual) Lymphocytes # Lymphocytes # (Manual) Monocytes # Monocytes # (Manual) Eosinophils # Eosinophils # (Manual) APTT Sodium Potassium Chloride Carbon Dioxide BUN Creatinine Glucose POC Glucose (mg/dL) 170 H 121 H Calcium Ionized Calcium [place] Phosphorus Magnesium Iron TIBC AST ALT Alkaline Phosphatase Total Protein Albumin Triglycerides Procalcitonin Free T3 pg/mL Urine Appearance Urine Protein Urine Blood Ur Leukocyte Esterase Urine RBC Urine WBC Urine WBC Clumps Urine Bacteria Urine Mucus Crossmatch 03/09/19 03/09/19 03/09/19 05:35 07:05 11:53 WBC RBC Hgb Hct MCHC RDW Plt Count Neutrophils # Neutrophils # (Manual) Lymphocytes # Lymphocytes # (Manual) Monocytes # Monocytes # (Manual) Eosinophils # Eosinophils # (Manual) APTT Sodium Potassium 3.3 L Chloride Carbon Dioxide BUN 23 H Creatinine 1.61 H Glucose 114 H POC Glucose (mg/dL) 130 H 135 H Calcium Ionized Calcium [place] Phosphorus Magnesium Iron TIBC AST ALT Alkaline Phosphatase Total Protein Albumin Triglycerides Procalcitonin Free T3 pg/mL Urine Appearance Urine Protein Urine Blood Ur Leukocyte Esterase Urine RBC Urine WBC Urine WBC Clumps Urine Bacteria Urine Mucus Crossmatch 03/09/19 03/09/19 03/10/19 17:08 21:25 06:44 WBC RBC Hgb Hct MCHC RDW Plt Count Neutrophils # Neutrophils # (Manual) Lymphocytes # Lymphocytes # (Manual) Monocytes # Monocytes # (Manual) Eosinophils # Eosinophils # (Manual) APTT Sodium Potassium Chloride Carbon Dioxide BUN Creatinine Glucose POC Glucose (mg/dL) 121 H 129 H 121 H Calcium Ionized Calcium [place] Phosphorus Magnesium Iron TIBC AST ALT Alkaline Phosphatase Total Protein Albumin Triglycerides Procalcitonin Free T3 pg/mL Urine Appearance Urine Protein Urine Blood Ur Leukocyte Esterase Urine RBC Urine WBC Urine WBC Clumps Urine Bacteria Urine Mucus Crossmatch 03/10/19 12:00 WBC RBC Hgb Hct MCHC RDW Plt Count Neutrophils # Neutrophils # (Manual) Lymphocytes # Lymphocytes # (Manual) Monocytes # Monocytes # (Manual) Eosinophils # Eosinophils # (Manual) APTT Sodium Potassium Chloride Carbon Dioxide BUN Creatinine Glucose POC Glucose (mg/dL) 127 H Calcium Ionized Calcium [place] Phosphorus Magnesium Iron TIBC AST ALT Alkaline Phosphatase Total Protein Albumin Triglycerides Procalcitonin Free T3 pg/mL Urine Appearance Urine Protein Urine Blood Ur Leukocyte Esterase Urine RBC Urine WBC Urine WBC Clumps Urine Bacteria Urine Mucus Crossmatch Assessment and Plan Assessment: * Altered mental status, likely due to delirium superimposed on probable underlying dementia. * History of small bowel up suction, status post exploratory laparotomy with sigmoid colectomy and colostomy for perforated sigmoid diverticulitis status and secondary peritonitis and abdominal as process * Acute on chronic renal disease. Plan: * Patient has fluctuating mental status with episodes of disorientation, and confusion at times. This is likely due to delirium due to being hospitalized for a month, with multiple medical/surgical issues as mentioned above. However it is possible that patient may also have underlying dementia as well, although difficult to assess with surety because of presence of delirium. * I spoke to patient's daughter Ms Nahomy Barnes on the phone, who informed me that prior to this admission there were no concerns of memory loss or dementia. She lives independently by herself, pays all bills by herself, and does all the banking. She still drives locally. Based upon this information, I would suspect patient probably has delirium. Patient's daughter was recommended to have patient see a neurologist in 1-2 months, if she continues to have memory deficits to rule out underlying dementia. * I will check B12, folate, B6 and B1 levels at this time. Her thyroid functions are normal as of 02/12/2019.
[2019-03-10 16:49] LABS: Glucose,Whole Blood 125 mg/dL (75-99)
--- NOTE | 2019-03-10 17:25 | PN ---
PROGRESS NOTE DATE OF SERVICE: 03/10/2019 REASON FOR FOLLOWUP: Secondary peritonitis from perforated diverticulitis and UTI. INTERVAL HISTORY: The patient is currently afebrile. The patient has been breathing comfortably; feeling weak and tired. No chest pain or any worsening cough. No abdominal pain. She did have some loose stool. PHYSICAL EXAMINATION: Blood pressure 175/73 with a pulse of 75, temperature 98.4. She is 97% on 2 L nasal cannula. General description is an elderly female up in the chair in no distress. RESPIRATORY SYSTEM: Unlabored breathing. Clear to auscultation anteriorly. HEART: S1, S2. Regular rate and rhythm. ABDOMEN: Soft. Tender. LABS: Hemoglobin 8.9, white count of 9.7, BUN of 23, creatinine 1.61. DIAGNOSTIC IMPRESSION AND PLAN: Patient with secondary peritonitis from perforated sigmoid diverticulitis. The patient at this time is on oral Augmentin for another 2-3 days and discontinue afterwards. Monitor clinical course closely. Continue with supportive care. MMODL / IJN: [id number] /
[2019-03-10] MEDS: hydrALAZINE HCL 50 MG TAB PO SCH ×2 (17:46→20:48)
[2019-03-10 20:40] LABS: Glucose,Whole Blood 114 mg/dL (75-99)
[2019-03-10] MEDS: MELATONIN 3 MG TABLET PO PRN (20:47)
[2019-03-10] MEDS: ATORVASTATIN 10 MG TAB PO SCH (20:47)
[2019-03-10] MEDS: amLODIPine 5 MG TAB PO SCH (20:47)
[2019-03-10] MEDS: DULoxetine HCL 60 MG CAPSULE.DR PO SCH (20:49)
[2019-03-10] MEDS ORDERED: LORazepam 2 MG/ML INJ IV PRN (22:44)
[2019-03-11] MEDS: HYDROcodone/APAP 5-325MG 1 EACH TAB PO PRN ×2 (06:06→18:16)
[2019-03-11 07:05] LABS: Glucose,Whole Blood 127 mg/dL (75-99)
[2019-03-11] MEDS: INSULIN ASPART (NovoLOG) 100 UNIT/ML VIAL SQ SCH ×4 (07:19→21:33)
[2019-03-11] MEDS: BUDESONIDE 0.5 MG/2 ML NEBU INHALATION SCH ×2 (07:26→19:59)
[2019-03-11] MEDS: IPRATROPIUM-ALBUTEROL 3 ML NEB INHALATION SCH ×4 (07:26→19:59)
[2019-03-11] MEDS: METOPROLOL TARTRATE 50 MG TAB PO SCH ×2 (07:27→16:30)
[2019-03-11] MEDS: APIXABAN 2.5 MG TABLET PO SCH ×2 (07:27→21:32)
[2019-03-11] MEDS: hydrALAZINE HCL 50 MG TAB PO SCH ×4 (07:27→21:32)
[2019-03-11] MEDS: AMIODARONE 200 MG TAB PO SCH ×2 (07:27→21:33)
[2019-03-11] MEDS: AMOXIC-POT CLAV 500-125 MG 1 EACH TAB PEG/G-TUBE SCH ×2 (07:28→21:35)
[2019-03-11] MEDS: DILTIAZEM ORAL 60 MG TAB PO SCH ×3 (07:28→21:35)
[2019-03-11] MEDS: DICLOFENAC SODIUM GEL 100 GM TUBE TOPICAL SCH ×2 (07:29→21:35)
[2019-03-11] MEDS ORDERED: METOPROLOL TARTRATE 50 MG TAB PO STA (08:32)
[2019-03-11] MEDS: DARBEPOETIN ALFA 40 MCG/0.4 ML SYRINGE SQ SCH (10:36)
--- NOTE | 2019-03-11 10:43 | CDI ---
Documentation Clarification Form Date: 03/11/2019 10:22:23 AM From: Martina BrannonMataNORMA nina, CCDS Phone: [phone] Admit Date: 02/07/2019 08:34:00 PM Patient Name: Angelcia Ling Visit Number: [id number] Discharge Date: ATTENTION: The Clinical Documentation Specialists (CDI) and [facility] Coding Staff appreciate your assistance in clarifying documentation. Please respond to the clarification below the line at the bottom and electronically sign. The CDI & [facility] Coding staff will review the response and follow-up if needed. Please note: Queries are made part of the Legal Health Record. If you have any questions, please contact the author of this message via ITS. Dr. Rodriguez Engel: The patient presented on 02/07 with abdominal pain, no bowel movements, generalized tenderness, mild constipation, diagnosed with partial mechanical small bowel obstruction, possible cholecystitis & urinary tract infection for her Murphy catheter. On 02/18 the patient was diagnosed with aspiration pneumonia. On 02/23 found to have an abdominal abscess. History/Risk Factors: Appendectomy, Solitary kidney, Hyperlipidemia, Hypertension, Cervical & Uretheral cancer. Clinical Indicators: Presented as above, subsequently on 02/12 underwent a laparotomy, extensive lysis of adhesions, sigmoid colectomy & end colostomy. On 02/26 received a Dobhoff feeding tube. On 03/06: EGD with PEG tube placement. VS 02/15: T 100.6^, P 115-120^, R 33 - 15, BP 93/71*, PO 88 on high flow O2 15L. LABS 02/15: WBC 18.1, Neut 14.8, Lactic acid (1.0) 02/07 Urine culture (catheter): Klebsiella pneumoniae & E Coli. Treatment on 02/15: IV Potassium Phosphate, INH Albuterol/Pulmicort, IV Tylenol, TPN, O2 15L high flow, IV Flagyl on this day. Previously on IV Kefzol & IV Zosyn. IV Zosyn was restarted on 02/15. In your professional opinion, please clarify if these findings signify one of the following conditions, whether the condition is POA, and cause, if known: Sepsis ruled out Sepsis ruled in, please specify cause: o Severe Sepsis Other, please specify Unable to determine Present on Admission: Yes or No Identify the (suspected) organism if known: Link or clarify if there is associated (due to/with): o Organ failure (Last Revision: May 2017) MTDD
[2019-03-11 11:08] LABS: Glucose,Whole Blood 124 mg/dL (75-99)
--- NOTE | 2019-03-11 11:29 | P.PN ---
Subjective Progress Note Date: 03/11/19 Patient states she is not feeling well. However she is fully alert and awake, in no distress. She has oxygen by nasal cannula. Objective - Vital Signs Vital signs: Vital Signs Temp 98.6 F 03/11/19 04:46 Pulse 76 03/11/19 07:40 Resp 20 03/11/19 08:00 BP 179/76 03/11/19 04:46 Pulse Ox 92 L 03/11/19 04:46 Intake & Output 03/10/19 03/11/19 03/11/19 18:59 06:59 18:59 Intake Total 840 120 40 Output Total 1800 Balance 840 -1680 40 Weight 55.5 kg Intake: IV 400 Lactated Ringers 1,000 ml 400 @ 50 mls/hr IV .Q20H [facility] Rx#:[id number] Tube Feeding 320 120 40 Other 120 Output: Urine 1700 Stool 100 Other: Voiding Method Indwelling Catheter Indwelling Catheter Indwelling Catheter - Exam Patient is alert and awake in no distress. Patient states the year is 2018 and the month is March. She thinks she is in [facility] and states that she lives in [facility]. She states the current president is "Objacob", then she states "he is not". Then she states "I don't know". I gave her choices of 5 different presidents including Mr. De La Rosa, but patient could not identify his name as a current president. Her examination is nonfocal. - Labs CBC & Chem 7: 03/09/19 05:35 03/09/19 14:06 Labs: Abnormal Lab Results - Last 24 Hours (Table) 03/10/19 03/10/19 03/10/19 Range/Units 12:00 16:42 20:39 POC Glucose (mg/dL) 127 H 125 H 114 H (75-99) mg/dL 03/11/19 03/11/19 Range/Units 07:03 11:07 POC Glucose (mg/dL) 127 H 124 H (75-99) mg/dL Assessment and Plan Assessment: * Altered mental status, likely due to delirium superimposed on probable und erlying dementia. * History of small bowel resection, status post exploratory laparotomy with sigmoid colectomy and colostomy for perforated sigmoid diverticulitis and secondary peritonitis and abdominal abscess. * Acute on chronic renal disease. Plan: * Patient has delirium. She may have developed dementia as well. Patient's daughter was recommended to have patient see a neurologist in 1-2 months, if she continues to have memory deficits to rule out underlying dementia. * B12 is normal 596, folate normal 15. B6, B1 levels and MMA are still pending. Her thyroid functions are normal as of 02/12/2019. * Patient neurologically clear.
--- NOTE | 2019-03-11 12:24 | P.PN ---
<Siobhan Dugan Tiffany - Last Filed: 03/11/19 12:22> Subjective Progress Note Date: 03/11/19 CHIEF COMPLAINT: Abdominal pain HISTORY OF PRESENT ILLNESS: Patient is status post exploratory laparotomy, extensive lysis of adhesions, sigmoid colectomy, and end colostomy on 02/12/19. Patient examined at the bedside. Patient is tolerating tube feedings at goal with minimal residuals. Ostomy with stool noted. Mentation remains slightly altered this morning. Neurology following. Vital signs are stable. PHYSICAL EXAM: VITAL SIGNS: Reviewed GENERAL: Well-developed in no acute distress. CHEST: Non-labored respirations and equal bilateral excursions. ABDOMEN: Soft. Nondistended. Dressing to abdomen clean dry intact. Ostomy with brown liquid stool noted. PEG tube intact. PSYCH: Appropriate affect. Alert and oriented x 1-2. SKIN: Well perfused. Good skin turgor. ASSESSMENT: 1. Abdominal pain, status post exploratory laparotomy, extensive lysis of adhesions, sigmoid colectomy, and end colostomy secondary to colonic obstruction 2. Intrapelvic fluid collection PLAN: Continue dressing changes to abdomen Continue tube feedings as tolerated Patient may be discharged to [facility] from a surgical standpoint Nurse practitioner note has been reviewed by physician. Signing provider agrees with the documented findings, assessment, and plan of care. Objective - Vital Signs Vital signs: Vital Signs Temp 98.6 F 03/11/19 04:46 Pulse 76 03/11/19 11:40 Resp 20 03/11/19 08:00 BP 179/76 03/11/19 04:46 Pulse Ox 92 L 03/11/19 04:46 Intake & Output 03/10/19 03/11/19 03/11/19 18:59 06:59 18:59 Intake Total 840 120 80 Output Total 1800 Balance 840 -1680 80 Weight 55.5 kg Intake: IV 400 Lactated Ringers 1,000 ml 400 @ 50 mls/hr IV .Q20H [facility] Rx#:[id number] Tube Feeding 320 120 80 Other 120 Output: Urine 1700 Stool 100 Other: Voiding Method Indwelling Catheter Indwelling Catheter Indwelling Catheter - Labs CBC & Chem 7: 03/09/19 05:35 03/09/19 14:06 Labs: Abnormal Lab Results - Last 24 Hours (Table) 03/10/19 03/10/19 03/11/19 Range/Units 16:42 20:39 07:03 POC Glucose (mg/dL) 125 H 114 H 127 H (75-99) mg/dL 03/11/19 Range/Units 11:07 POC Glucose (mg/dL) 124 H (75-99) mg/dL <WilsonChris [email or web address] - Last Filed: 03/11/19 12:39> Subjective As above. This morning the patient was complaining of some discomfort. Abdomen is soft and nontender hour. Continue tube feeds at goal. Objective - Vital Signs Vital signs: Vital Signs Temp 98.6 F 03/11/19 04:46 Pulse 76 03/11/19 11:40 Resp 20 03/11/19 08:00 BP 179/76 03/11/19 04:46 Pulse Ox 92 L 03/11/19 04:46 Intake & Output 03/10/19 03/11/19 03/11/19 18:59 06:59 18:59 Intake Total 840 120 80 Output Total 1800 Balance 840 -1680 80 Weight 55.5 kg Intake: IV 400 Lactated Ringers 1,000 ml 400 @ 50 mls/hr IV .Q20H [facility] Rx#:[id number] Tube Feeding 320 120 80 Other 120 Output: Urine 1700 Stool 100 Other: Voiding Method Indwelling Catheter Indwelling Catheter Indwelling Catheter - Labs CBC & Chem 7: 03/09/19 05:35 03/09/19 14:06 Labs: Abnormal Lab Results - Last 24 Hours (Table) 03/10/19 03/10/19 03/11/19 Range/Units 16:42 20:39 07:03 POC Glucose (mg/dL) 125 H 114 H 127 H (75-99) mg/dL 03/11/19 Range/Units 11:07 POC Glucose (mg/dL) 124 H (75-99) mg/dL Assessment and Plan (1) Abdominal pain Current Visit: Yes Status: Acute Code(s): R10.9 - UNSPECIFIED ABDOMINAL PAIN SNOMED Code(s): 34823392
[2019-03-11] MEDS: LORazepam 1 MG TAB PO PRN ×2 (12:46→21:32)
--- NOTE | 2019-03-11 13:46 | P.PN ---
Subjective Progress Note Date: 03/11/19 (Delirium, dementia) Principal diagnosis: mechanical obstruction with small bowel and distended abdomen with history of adhesions in the past. The progress note dictated on 02/08/2090 by Patient with history notable bowel movement or stool or passing flatus for more than one week duration x-ray indicating small bowel mechanical obstruction. And patient currently nothing by mouth with NG tube which she did some relief. Her vital sign temperature 90.8 orally F Fahrenheit and her pulse rate 80 and she developed on the surgical floor atrial fibrillation with a rate of 1:30 P 8/m patient transferred to blue leather sorter floor with cardiology consultation which she was started on cardiac exam drip. And seen by Dr. ISATU Zamudio. Respiratory rate 16 and her blood pressure is hypertensive in spite of trial of medication 187/84. She is on nasal cannula 2 L of oxygen with a pulse ox 95%. current laboratories indicating that her WBC 5.3 with a hemoglobin 11.6, her p latelet count 414.next is her PTT 32.6with the normal range 30.6. Minimally elevated. Chemistry indicating sodium 144 potassium 3.8 chloride 108 carbon dioxid 28, anion gap 8, BUN 20, creatinine 1.94, EGFR 23 with chronic kidney disease stage IV. Glucose 131AST and LT normal alk phos 137 total protein 6.1 and albumin 3.4 thyroid function is normal and the free T3 some little bit lower than normal that is because of her illness Nephrology evaluation and assessment indicating patient with the UTI Klebsiella pneumonia and E. coli treated according to the culture with the assessment acute kidney injury possibly prerenal improved with hydration. Chronic kidney disease stage IV with the creatinine near 2 secondary to hydronephrosis and left renal atrophy. #3 abdominal pain with questionable diverticulitis and chronic obstruction and NG tube for decompression. Neurogenic bladder and uses a catheterization 4-5 a day metabolic acidosis and she is on bicarb hypertension is controlled and UTI. Physical exam patient status post barium enema and patient the result reviewed by Dr. Sahu and his impression will be discussed with the family. HEENT was negative neck was supple and chest was clear and the heart was currently controlled atrophic And abdomen is tender distended and with the small bowel obstruction extremities no edema. Assessment small bowel obstruction mechanical and high fall to the patient should have surgical intervention. However this is a surgical case and up to t he family and the surgeon. Progress note date of service 03/11/[address] Engel. Patient seen [id number] . Patient reported for detention and was chosen for her [facility] by the patient's family and the nursing staff. The [facility] detention, refused to take her today on account of being confused and disoriented with delirium/dementia. I did consult Dr. Braden neurologist he did see the patient evaluated her and he agreed with our conclusion was delirium versus dementia, Patient has been aggressively agitated confused pulling out the lines. And there is no other alternative, Dr. Braden did not recommend any medication to calm the patient down he advised to be reevaluated by neurology as outpatient in couple months. Nursing staff requesting medication to control the patient down and avoid harming herself and pulling out all She had a PEG tube and she had also Murphy catheter because of neurogenic bladder. Patient also on antibiotic with the recommendation by Dr. Bernardo infectious disease. The inquire regarding wound sending me email about patient may had sepsis on admission we agreed with the underlying UTI and CL a pneumonia and E. coli in the urine. However the pathology report after the surgery which was done on 02/12/2019 indicating final pathologic diagnoses 4: And segmental resection of the sigmoid found that patient has diverticulosis with diverticulitis and segmental sclerosis/stricture formation. Acute suppurative peritonitis wound dry in all content within eschar OF serosal surface of perforated viscus adjacent colonic mucosa, tubular adenomata. Patient started on Ativan 1 mg every 6 hour for the agitation, and hopefully by tomorrow patient is stable to be accepted at [facility] and rehab. Patient currently moaning with agitation her heart rate was accelerated with the atrial fibrillation and we recommended to let cardiology know as they had adjusted her medication before and they were they were following her up. On exam: Temperature 98.6 oral pulse rate 76-81 with irregular irregularities blood pressure was 179/76 pulse ox 92% on room air. HEENT no changes Oropharynx had note appetite and she has lower frontal teeth and upper plate. She has also heart disease. With the since oh deficit. Neck was supple no JVD no thyromegaly no lymphadenopathy. Trachea midline. Chest clear to auscultation and percussion with the right dmitriy-diaphragm is elevated. The abdomen: Has been checked by Dr. Mliler today and they are not concerned about the incision and has been dressed up. She has colostomy bag on the left side. And she had a PEG tube in place infusing with no abnormalities. Extremities no edema and positive pulses. Neurology: She has been seen by the neurologist Dr. Braden with his recommendation on the chart and he thought of delirium and later on in the detention may be rechecked by the neurologist to rule out dementia. Assessment: #1 patient in the hospital for 31 days with underlying multiple medical problem currently she is improved clinically to be transferred to detention for continue his rehabilitation. #2 delirium/dementia with agitation, prevented her from going to the detention [facility] as they did not accept her with the agitation. #3 we started her on Ativan and hopefully that will calm the patient down and able to transfer her to [facility]. #4 it is still continue to have these agitation despite of the Ativan will be as natalie again the neurologist to help if he has any other opinion or sinus congestion. #5 also if [facility] not accepting the patient tomorrow then we will be looking for different facilities. Plan continue hospitalization and start Ativan 1 mg every 6 R. Monitored the agitation and confusion and continue the current treatment and recheck her vital sign and the patient is calm to see what his her blood pressure. With her pulse ox is low will resume or tomorrow to a liter per minute. With the goal 94% or above. Objective - Vital Signs Vital signs: Vital Signs Temp 98.6 F 03/11/19 04:46 Pulse 76 03/11/19 11:40 Resp 20 03/11/19 08:00 BP 179/76 03/11/19 04:46 Pulse Ox 92 L 03/11/19 04:46 Intake & Output 03/10/19 03/11/19 03/11/19 18:59 06:59 18:59 Intake Total 840 120 80 Output Total 1800 Balance 840 -1680 80 Weight 55.5 kg Intake: IV 400 Lactated Ringers 1,000 ml 400 @ 50 mls/hr IV .Q20H [facility] Rx#:[id number] Tube Feeding 320 120 80 Other 120 Output: Urine 1700 Stool 100 Other: Voiding Method Indwelling Catheter Indwelling Catheter Indwelling Catheter - Labs CBC & Chem 7: 03/09/19 05:35 03/09/19 14:06 Labs: Abnormal Lab Results - Last 24 Hours (Table) 03/10/19 03/10/19 03/11/19 Range/Units 16:42 20:39 07:03 POC Glucose (mg/dL) 125 H 114 H 127 H (75-99) mg/dL 03/11/19 Range/Units 11:07 POC Glucose (mg/dL) 124 H (75-99) mg/dL
--- NOTE | 2019-03-11 15:13 | P.PN ---
Subjective This is a pleasant 83-year-old female past medical history significant for hypertension, dyslipidemia, chronic kidney disease who presented to the hospital with abdominal pain and was found to have a bowel obstruction. She underwent exploratory laparotomy and colostomy with Dr. Sahu. She is seen and examined in bed laying flat. She complains of significant abdominal discomfort and shortness of breath. She denies chest pain, dizziness or palpitations. NG tube was removed this morning per Dr. Rodarte. Telemetry tracings reveal sinus tachycardia. Chest x-ray obtained last night reveals moderate-sized bilateral pleural effusions, right greater than left. Ultrasound of the chest revealed a right pleural effusion pocket size of 4 cm and the left pleural effusion pocket size of 4.4 cm. Laboratory data reviewed, sodium 142, potassium 3.3, creatinine 2.19 and magnesium 2.3. Blood pressure 104/61 heart rate 78 afebrile maintaining oxygen saturation on nasal cannula. 03/11/2018 We have been asked to see the patient today due to increased heart rates. She was in atrial fibrillation this morning with a heart rate of 110-120. Blood pressure 179/76. Currently maintained on amiodarone 200 mg twice a day, amlodipine 5 mg daily, Eliquis 2.5 mg twice a day, atorvastatin 5 mg daily, diltiazem 60 mg TID, hydralazine 50 mg QID and lopressor 50 mg TID. Additional dose of lopresor 50 mg given as a verbal order this morning. She has since converted to sinus. She is seen and examined sitting up in bed in no acute distress. She denies chest pain, palpitations, shortness of breath or dizziness. GENERAL: Well-appearing, well-nourished and in no acute distress. NECK: Supple without JVD or thyromegaly. LUNGS: Diminished bilaterally, clear to auscultation bilaterally, no rales, wheezes or rhonchi. Respiration equal and unlabored. HEART: Regular rate and rhythm with diastolic murmur at the base, no rubs or gallops. S1 and S2 heard. EXTREMITIES: Normal range of motion, no edema. No clubbing or cyanosis. Peripheral pulses intact. ASSESSMENT Paroxysmal atrial fibrillation with RVR, has converted spontaneously to sinus mechanism. Acute on chronic diastolic heart failure Abdominal pain status post exploratory laparotomy, lysis of adhesions, colectomy and end colostomy creation Leukocytosis Hypokalemia Hypertension Dyslipidemia Chronic kidney disease PLAN She has converted to sinus mechanism. Continue current medical regimen. Nurse Practitioner note has been reviewed, I agree with a documented findings and plan of care. Patient was seen and examined. Objective - Vital Signs Vital signs: Vital Signs Temp 98.6 F 03/11/19 04:46 Pulse 76 03/11/19 11:40 Resp 20 03/11/19 08:00 BP 179/76 03/11/19 04:46 Pulse Ox 92 L 03/11/19 04:46 Intake & Output 03/10/19 03/11/19 03/11/19 18:59 06:59 18:59 Intake Total 840 120 80 Output Total 1800 Balance 840 -1680 80 Weight 55.5 kg Intake: IV 400 Lactated Ringers 1,000 ml 400 @ 50 mls/hr IV .Q20H [facility] Rx#:[id number] Tube Feeding 320 120 80 Other 120 Output: Urine 1700 Stool 100 Other: Voiding Method Indwelling Catheter Indwelling Catheter Indwelling Catheter - Labs CBC & Chem 7: 03/09/19 05:35 03/09/19 14:06 Labs: Abnormal Lab Results - Last 24 Hours (Table) 03/10/19 03/10/19 03/11/19 Range/Units 16:42 20:39 07:03 POC Glucose (mg/dL) 125 H 114 H 127 H (75-99) mg/dL 03/11/19 Range/Units 11:07 POC Glucose (mg/dL) 124 H (75-99) mg/dL
[2019-03-11 17:04] LABS: Glucose,Whole Blood 139 mg/dL (75-99)
--- NOTE | 2019-03-11 19:58 | PN ---
PROGRESS NOTE Patient is seen for followup for chronic kidney disease. She is lying in bed. She has been confused and this morning patient was anxious. She has a sitter. Patient is maintained on tube feeds. PHYSICAL EXAMINATION: On examination, blood pressure is 179/76, heart rate of 81 per minute. She is afebrile. EXAMINATION OF THE HEART: S1 and S2. EXAMINATION OF LUNGS: Decreased breath sounds at bases. ABDOMEN: Soft, non-tender. Examination of lower extremities shows no significant edema. 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 Patient moving all 4 extremities. She is confused at times. LABS: Labs are not available from today. Last blood work was on 03/09/2019 which showed a serum creatinine of 1.6 and potassium of 3.3. ASSESSMENT: 1. Chronic kidney disease, stage IV, secondary to nephrosclerosis and left renal atrophy. 2. Status post explorative laparotomy, sigmoid colectomy and colostomy. 3. Urinary tract infection. 4. Hypokalemia, status post replacement. 5. Dementia with agitation. PLAN: Repeat labs in a.m. Continue to encourage increased oral intake. MMODL / IJN: [id number] /
[2019-03-11 20:39] LABS: Glucose,Whole Blood 154 mg/dL (75-99)
[2019-03-11] MEDS: DULoxetine HCL 60 MG CAPSULE.DR PO SCH (21:32)
[2019-03-11] MEDS: amLODIPine 5 MG TAB PO SCH (21:32)
[2019-03-11] MEDS: ATORVASTATIN 10 MG TAB PO SCH (21:33)
[2019-03-11] MEDS: MELATONIN 3 MG TABLET PO PRN (22:43)
[2019-03-12] MEDS: HYDROcodone/APAP 5-325MG 1 EACH TAB PO PRN ×2 (00:05→17:02)
[2019-03-12] MEDS: LORazepam 1 MG TAB PO PRN ×2 (02:57→11:26)
[2019-03-12 05:30] VITALS: RESP 18
--- NOTE | 2019-03-12 05:46 | PN ---
PROGRESS NOTE DATE OF SERVICE: 03/11/2019 REASON FOR FOLLOWUP: Sigmoid diverticulitis perforation with secondary peritonitis. INTERVAL HISTORY: The patient is currently afebrile. She has been breathing comfortably. The patient is currently waiting for placement. No chest pain, shortness of breath or cough. No abdominal pain. She did have diarrhea per the nursing staff. PHYSICAL EXAMINATION: Blood pressure 177/78 with a pulse of 78, temperature of 98. She is 92% on room air. General description is an elderly female up in the bed in no distress. RESPIRATORY SYSTEM: Unlabored breathing, clear to auscultation anteriorly. HEART: S1, S2. Regular rate and rhythm. ABDOMEN: Soft, no tenderness. Incision looks clean. DIAGNOSTIC IMPRESSION AND PLAN: Patient with perforated sigmoid diverticulitis, status post laparotomy and diverting colostomy. Underlying infection has been adequately treated. The patient now has significant diarrhea, possibly antibiotic associated. We will discontinue the Augmentin and monitor the patient closely off antibiotic therapy. Family at the bedside. Questions were answered. MMODL / IJN: [id number] /
[2019-03-12] MEDS: METOPROLOL TARTRATE 50 MG TAB PO SCH ×2 (06:03→15:56)
[2019-03-12 07:14] LABS: Glucose,Whole Blood 146 mg/dL (75-99)
[2019-03-12] MEDS: IPRATROPIUM-ALBUTEROL 3 ML NEB INHALATION SCH ×3 (08:16→16:11)
[2019-03-12] MEDS: BUDESONIDE 0.5 MG/2 ML NEBU INHALATION SCH (08:16)
[2019-03-12] MEDS: INSULIN ASPART (NovoLOG) 100 UNIT/ML VIAL SQ SCH ×3 (08:22→17:22)
[2019-03-12] MEDS: APIXABAN 2.5 MG TABLET PO SCH (08:57)
[2019-03-12] MEDS: DILTIAZEM ORAL 60 MG TAB PO SCH ×2 (08:57→15:55)
[2019-03-12] MEDS: AMIODARONE 200 MG TAB PO SCH (08:57)
[2019-03-12] MEDS: hydrALAZINE HCL 50 MG TAB PO SCH ×2 (08:58→12:46)
[2019-03-12 11:00] LABS: Calcium 9.6 mg/dL (8.4-10.2); Potassium 3.5 mmol/L (3.5-5.1)
[2019-03-12] MEDS: DICLOFENAC SODIUM GEL 100 GM TUBE TOPICAL SCH (11:23)
[2019-03-12 12:02] LABS: Glucose,Whole Blood 179 mg/dL (75-99)
--- NOTE | 2019-03-12 12:30 | P.PN ---
<DuganSiobhan Tiffany - Last Filed: 03/12/19 12:29> Subjective Progress Note Date: 03/12/19 CHIEF COMPLAINT: Abdominal pain HISTORY OF PRESENT ILLNESS: Patient is status post exploratory laparotomy, extensive lysis of adhesions, sigmoid colectomy, and end colostomy on 02/12/19. Patient examined at the bedside. Patient remains confused. 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 Patient is tolerating tube feedings at goal with minimal residuals. Ostomy with stool noted. Patient denies abdominal pain. PHYSICAL EXAM: VITAL SIGNS: Reviewed GENERAL: Well-developed in no acute distress. CHEST: Non-labored respirations and equal bilateral excursions. ABDOMEN: Soft. Nondistended. Dressing to abdomen clean dry intact. Ostomy with brown liquid stool noted. PEG tube intact. PSYCH: Appropriate affect. Alert and oriented x 1-2. SKIN: Well perfused. Good skin turgor. ASSESSMENT: 1. Abdominal pain, status post exploratory laparotomy, extensive lysis of adhesions, sigmoid colectomy, and end colostomy secondary to colonic obstruction 2. Intrapelvic fluid collection PLAN: Continue dressing changes to abdomen Continue tube feedings as tolerated Patient may be discharged to [facility] from a surgical standpoint Nurse practitioner note has been reviewed by physician. Signing provider agrees with the documented findings, assessment, and plan of care. Objective - Vital Signs Vital signs: Vital Signs Temp 97.8 F 03/12/19 05:29 Pulse 107 H 03/12/19 12:26 Resp 18 03/12/19 08:00 BP 142/80 03/12/19 05:29 Pulse Ox 94 L 03/12/19 08:17 Intake & Output 03/11/19 03/12/19 03/12/19 18:59 06:59 18:59 Intake Total 120 560 Output Total 1200 1030 Balance -1080 -470 Weight 54.5 kg Intake: Tube Feeding 120 560 Output: Urine 1200 1000 Uretheral (Murphy) 500 Stool 30 Other: Voiding Method Indwelling Catheter Indwelling Catheter Indwelling Catheter - Labs CBC & Chem 7: 03/09/19 05:35 03/12/19 09:52 Labs: Abnormal Lab Results - Last 24 Hours (Table) 03/10/19 03/10/19 03/11/19 Range/Units 16:03 16:03 17:02 BUN (7-17) mg/dL Creatinine (0.52-1.04) mg/dL Glucose (74-99) mg/dL POC Glucose (mg/dL) 139 H (75-99) mg/dL Vitamin B6 4 L (5-50) ug/L Methylmalonic Acid 0.90 H (<0.40) umol/L 03/11/19 03/12/19 03/12/19 Range/Units 20:36 07:12 09:52 BUN 25 H (7-17) mg/dL Creatinine 1.63 H (0.52-1.04) mg/dL Glucose 151 H (74-99) mg/dL POC Glucose (mg/dL) 154 H 146 H (75-99) mg/dL Vitamin B6 (5-50) ug/L Methylmalonic Acid (<0.40) umol/L 03/12/19 Range/Units 11:58 BUN (7-17) mg/dL Creatinine (0.52-1.04) mg/dL Glucose (74-99) mg/dL POC Glucose (mg/dL) 179 H (75-99) mg/dL Vitamin B6 (5-50) ug/L Methylmalonic Acid (<0.40) umol/L <Soham Miller - Last Filed: 03/12/19 17:37> Objective - Vital Signs Vital signs: Vital Signs Temp 98.2 F 03/12/19 13:35 Pulse 92 03/12/19 16:26 Resp 18 03/12/19 13:35 BP 166/86 03/12/19 13:35 Pulse Ox 92 L 03/12/19 13:35 Intake & Output 03/11/19 03/12/19 03/12/19 18:59 06:59 18:59 Intake Total 120 560 Output Total 1200 1030 525 Balance -1080 -470 -525 Weight 54.5 kg 54.5 kg Intake: Tube Feeding 120 560 Output: Urine 1200 1000 450 Uretheral (Murphy) 500 Stool 30 75 Other: Voiding Method Indwelling Catheter Indwelling Catheter Indwelling Catheter - Labs CBC & Chem 7: 03/09/19 05:35 03/12/19 09:52 Labs: Abnormal Lab Results - Last 24 Hours (Table) 03/10/19 03/10/19 03/11/19 Range/Units 16:03 16:03 20:36 BUN (7-17) mg/dL Creatinine (0.52-1.04) mg/dL Glucose (74-99) mg/dL POC Glucose (mg/dL) 154 H (75-99) mg/dL Vitamin B6 4 L (5-50) ug/L Methylmalonic Acid 0.90 H (<0.40) umol/L 03/12/19 03/12/19 03/12/19 Range/Units 07:12 09:52 11:58 BUN 25 H (7-17) mg/dL Creatinine 1.63 H (0.52-1.04) mg/dL Glucose 151 H (74-99) mg/dL POC Glucose (mg/dL) 146 H 179 H (75-99) mg/dL Vitamin B6 (5-50) ug/L Methylmalonic Acid (<0.40) umol/L Assessment and Plan (1) Abdominal pain Status: Acute Code(s): R10.9 - UNSPECIFIED ABDOMINAL PAIN SNOMED Code(s): 40958586
--- NOTE | 2019-03-12 13:25 | P.DS ---
Providers Date of admission: 02/07/19 20:34 Expected date of discharge: 03/12/19 ([facility]) Attending physician: Rodriguez Engel Consults: 02/07/19 20:20 Consult Physician Stat Consulting Provider: Soham Miller Consult Reason/Comments: partial small bowel obstruction Do you want consulting provider notified?: Yes 02/07/19 21:09 Consult Physician Stat Consulting Provider: Chey Dugan Consult Reason/Comments: abd pain, mech sbo Do you want consulting provider notified?: Yes 02/08/19 09:00 Consult Physician Urgent Consulting Provider: Alex Phelps Consult Reason/Comments: hydroureter &hydronephrosis self cath,CKD 4 Do you want consulting provider notified?: Yes, Notify in am 02/08/19 09:17 Consult Physician Routine Consulting Provider: Nisha Arrington Consult Reason/Comments: CKD IV Do you want consulting provider notified?: Yes, Notify in am 02/10/19 14:58 Consult Physician Stat Consulting Provider: [facility] Consult Reason/Comments: increased heart rate, new onset Do you want consulting provider notified?: Yes 02/13/19 11:15 Consult Physician Routine Consulting Provider: Garrick Head Consult Reason/Comments: bipap management Do you want consulting provider notified?: Yes 02/23/19 19:06 Consult Physician Routine Consulting Provider: Emily Bernardo Consult Reason/Comments: possible pelvic abscess Do you want consulting provider notified?: Yes, Notify in am 03/10/19 13:34 Consult Physician Stat Consulting Provider: Jennifer Hair Consult Reason/Comments: Delirium versus dementia, neurology consult Do you want consulting provider notified?: Yes Primary care physician: Rodriguez Engel Dictation on discharge summary Date of service 03/12/[address] Miguel Angel Vann FACP. Disposition to [facility] living Number [place] of stay 32 days. Final diagnoses #1 abdominal distention with inability to have a bowel movement for 1 week duration with the failure of trials as outpatient and emergency room. #2 small bowel obstruction by computed tomography scan with diminished bowel sounds. #3 UTI and sepsis with Klebsiella pneumonia and E. coli. #4 no residual motion of the small bowel obstruction, with the surgical consultation with Dr. Sahu, barium enema was obtained and found also obstruction of the colon. #5 exploratory laparotomy and left colostomy bag #6 postoperative 2 telemetric monitor and develop respiratory failure transferred to the ICU with the consultation of critical care and pulmonary Dr. Mack in/Dr. Llanes/Dr. Campbell. #7 pathology report of the final diagnosis indicate sigmoid colon, segmental excision, diverticulosis with diverticulitis and segmental sclerosis/stricture formation. Acute suppurative retinitis with Inderal luminal content within Eschar off steroids will surface diagnostic for perforated viscus. Adjacent to colonic mucosa tubular edemata. #7 pelvic collection of fluid aspirated was indicated of pelvic abscess however negative culture positive PMNs and no bacteria. #8 protein calorie deficiency severe with prolonged feeding at present, patient started on peripheral TPN with the with sugar and fat emulsion prior the surgeons. And subsequently stopped and PEG tube was placed and infusion of enteral feeding through the PEG tube tolerated well. 40 mL an hour. 9#Patient with a history of chronic kidney disease stage IV, nephrology consulted and monitoring her intake output and renal function. #10 hematuria secondary to the Murphy catheter, patient with a history of neurogenic bladder, self recatheterization, possible reason for sepsis but added the pathology report indicating also peritonitis. 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 #12 hypertension with hypertensive heart disease. #13 right hip at severe advanced degenerative arthritis with [id number] patient refused surgery in the past improved with the Voltaren gel applied twice a day on the right hip and the buttock. #14 delerium associated with confusion agitation currently improved with Ativan 1 mg every 6 hour. #15 and anemia secondary to multiple factor, chronic kidney disease, surgery, prolonged illness,. #16 COPD, inhalation nebulizers, right hemidiaphragm elevation status chronic. 17 hyperglycemia patient never been diabetic in the past, however with the feeding tube covered with insulin to scale. #18 atrial fibrillation currently controlled ventricular response on Eliquis and albuterol and, diltiazem. #19 transported discontinued pain medication for the confusion and the delirium. #20 recommendation to see psychiatry and neurology as outpatient Consultation: Multiple Emergency room presentation: Abdominal distention inability to move her bowel with a CT indicating small bowel obstruction. Hospital course: As mentioned above complicated and she stated most of the time in the ICU after improvement in the wound patient transferred to 6 E. and with the agitation started on Ativan and subsequently stable medically as well as cleared for discharge by all involved with the consult including neurology, cardiology, infectious disease, pulmonary and critical care, surgeon Dr. Sahu. Patient still is able to eat however she had normal appetite, continue the feeding PEG tube, follow-up with the surgeon as well as the above senior clinical consultant. I'll be following the patient at the senior care. [id number] exam: Patient conscious she is confused and disoriented oropharynx she had lower natural teeth and upper plate normal swallowing. Neck was supple no JVD no thyromegaly no lymphadenopathy trachea midline. Chest was clear to auscultation and percussion no wheezes or rhonchi's. The heart irregular irregularities with atrial fibrillation controlled ventricular response. She had an echocardiogram during her hospital stay and was the ejection fraction stable and the question for diastolic congestive heart failure was entertained. However currently no evidence of the Abdomen is soft positive bowel sounds there is a stool in the colostomy bag and the PEG tube placement and infusing for feeding continuous at 40 mL an hour She had a Murphy catheter, patient is an neurogenic bladder her renal function significantly improved since her admission. Extremities no edema and she has been on anticoagulant. Neurologically she has delirium and confusion. Patient stable medically for transfer to the senior care today however she needs a psychiatric evaluation as well as neurological evaluation. And adjusting more of her medication for confusion. Patient Condition at Discharge: Serious Plan - Discharge Summary Discharge Rx Participant: No New Discharge Prescriptions: New Diltiazem Oral [Cardizem*] 60 mg PO TID tab Amiodarone [Cordarone] 200 mg PO BID tab Ipratropium-Albuterol Nebulize [Duoneb 0.5 mg-3 mg/3 ml Soln] 3 ml INHALATION RT-QID ampul.neb Apixaban [Eliquis] 2.5 mg PO BID tablet Metoprolol Tartrate [Lopressor] 50 mg PO TID tab Melatonin 6 mg PO HS PRN tablet PRN Reason: Insomnia INSULIN ASPART (NovoLOG) [NovoLOG (formulary)] 0 unit SQ ACHS vial Budesonide [Pulmicort] 0.5 mg INHALATION RT-BID nebu Acetaminophen Tab [Tylenol] 650 mg PO Q4HR PRN tab PRN Reason: Fever And/ Or Pain Continue Diclofenac Sodium Gel [Voltaren Gel] 1 applic TOPICAL DAILY PRN PRN Reason: HIP PAIN DULoxetine HCL [Cymbalta] 60 mg PO HS Sodium Bicarbonate 325 mg PO BID Cholecalciferol [Vitamin D3 (25 Mcg = 1000 Iu)] 1,000 unit PO DAILY hydrALAZINE HCL 50 mg PO BID-W/MEALS cloNIDine HCL [Catapres] 0.1 mg PO BID amLODIPine [Norvasc] 5 mg PO BID Atorvastatin [Lipitor] 10 mg PO Q48H Discontinued Metoprolol Tartrate 25 mg PO BID Polyethylene Glycol 3350 [Miralax] 17 gm PO DAILY Azithromycin [Zithromax Z-pack] See Taper PO DIRECTED Discharge Medication List Atorvastatin [Lipitor] 10 mg PO Q48H 02/07/19 [History] Cholecalciferol [Vitamin D3 (25 Mcg = 1000 Iu)] 1,000 unit PO DAILY 02/07/19 [History] DULoxetine HCL [Cymbalta] 60 mg PO HS 02/07/19 [History] Diclofenac Sodium Gel [Voltaren Gel] 1 applic TOPICAL DAILY PRN 02/07/19 [History] Sodium Bicarbonate 325 mg PO BID 02/07/19 [History] amLODIPine [Norvasc] 5 mg PO BID 02/07/19 [History] cloNIDine HCL [Catapres] 0.1 mg PO BID 02/07/19 [History] hydrALAZINE HCL 50 mg PO BID-W/MEALS 02/07/19 [History] Acetaminophen Tab [Tylenol] 650 mg PO Q4HR PRN tab 03/12/19 [Rx] Amiodarone [Cordarone] 200 mg PO BID tab 03/12/19 [Rx] Apixaban [Eliquis] 2.5 mg PO BID tablet 03/12/19 [Rx] Budesonide [Pulmicort] 0.5 mg INHALATION RT-BID nebu 03/12/19 [Rx] Diltiazem Oral [Cardizem*] 60 mg PO TID tab 03/12/19 [Rx] INSULIN ASPART (NovoLOG) [NovoLOG (formulary)] 0 unit SQ ACHS vial 03/12/19 [Rx] Ipratropium-Albuterol Nebulize [Duoneb 0.5 mg-3 mg/3 ml Soln] 3 ml INHALATION RT-QID ampul.neb 03/12/19 [Rx] Melatonin 6 mg PO HS PRN tablet 03/12/19 [Rx] Metoprolol Tartrate [Lopressor] 50 mg PO TID tab 03/12/19 [Rx] Follow up Appointment(s)/Referral(s): Soham Miller MD [Medical Doctor] - 1 Week Rodriguez Engel MD [Primary Care Provider] - 1-2 days Patient Instructions/Handouts: Colostomy Care (GEN), Bowel Obstruction (DC) Activity/Diet/Wound Care/Special Instructions: Cleared for discharge per Dr. Arrington 03/10/19 Cleared for discharge per Dr. Campbell 03/10/19 Cleared for discharge per Dr. Bernardo 03/10/19 Continue Augmentin until 03/15/19 Cleared for discharge per Dr. Miller 03/10/19 Midline incision with magyg present. Lower portion of incision, maggy removed and Aqua cell AG packed. Change q48. Due 03-13-19 Murphy catheter for neurogenic bladder. Must be kept. Aspiration and fall precautions. Up with assist to chair. Keep HOB elevated at 4 5 degrees at all times. Check residual every 4 hours. Ostomy pouch 2 3/4" #[id number] Ostomy flange 2 3/4" #[id number] Regular diet and PEG feeding with Vital 1.2 @ goal of 40ml/hr and 30ml water bolus q 1 hour. Clean site and change dressing daily. DNR code status.
[2019-03-12] MEDS ORDERED: PYRIDOXINE 50 MG TAB PO SCH (14:30)
[2019-03-12 14:37] VITALS: BP 166/86; TEMP 98.2
[2019-03-12] MEDS ORDERED: CYANOCOBALAMIN 1,000 MCG/ML 1 ML VIAL IM ONE (14:37)
--- NOTE | 2019-03-12 14:37 | P.PN ---
Subjective Progress Note Date: 03/12/19 Patient's [id number] Ms. Corea was also present today. Patient is much more groggy, somnolent right now. Not participating in the examination. Objective - Vital Signs Vital signs: Vital Signs Temp 97.8 F 03/12/19 05:29 Pulse 107 H 03/12/19 12:26 Resp 18 03/12/19 08:00 BP 142/80 03/12/19 05:29 Pulse Ox 94 L 03/12/19 08:17 Intake & Output 03/11/19 03/12/19 03/12/19 18:59 06:59 18:59 Intake Total 120 560 Output Total 1200 1030 525 Balance -0587 -470 -525 Weight 54.5 kg Intake: Tube Feeding 120 560 Output: Urine 1200 1000 450 Uretheral (Murphy) 500 Stool 30 75 Other: Voiding Method Indwelling Catheter Indwelling Catheter Indwelling Catheter - Exam Patient is very groggy today. Not able to answer questions regarding what year or month, or the president. Further examination deferred because of mental status. She does move all 4 extremities equally. - Labs CBC & Chem 7: 03/09/19 05:35 03/12/19 09:52 Labs: Abnormal Lab Results - Last 24 Hours (Table) 03/10/19 03/10/19 03/11/19 Range/Units 16:03 16:03 17:02 BUN (7-17) mg/dL Creatinine (0.52-1.04) mg/dL Glucose (74-99) mg/dL POC Glucose (mg/dL) 139 H (75-99) mg/dL Vitamin B6 4 L (5-50) ug/L Methylmalonic Acid 0.90 H (<0.40) umol/L 03/11/19 03/12/19 03/12/19 Range/Units 20:36 07:12 09:52 BUN 25 H (7-17) mg/dL Creatinine 1.63 H (0.52-1.04) mg/dL Glucose 151 H (74-99) mg/dL POC Glucose (mg/dL) 154 H 146 H (75-99) mg/dL Vitamin B6 (5-50) ug/L Methylmalonic Acid (<0.40) umol/L 03/12/19 Range/Units 11:58 BUN (7-17) mg/dL Creatinine (0.52-1.04) mg/dL Glucose (74-99) mg/dL POC Glucose (mg/dL) 179 H (75-99) mg/dL Vitamin B6 (5-50) ug/L Methylmalonic Acid (<0.40) umol/L Assessment and Plan Assessment: * Altered mental status, likely due to delirium superimposed on probable underlying dementia. * History of small bowel resection, status post exploratory laparotomy with sigmoid colectomy and colostomy for perforated sigmoid diverticulitis and secondary peritonitis and abdominal abscess. * Acute on chronic renal disease. * Vitamin B6 deficiency * Possible B12 deficiency, due to elevated methylmalonic acid level. Plan: * Patient has delirium. She probably has developed dementia as well. Patient's daughter in law was recommended to have patient see a neurologist in 1-2 months, if she continues to have memory deficits to rule out underlying dementia. * B12 is normal 596, methylmalonic acid is significantly elevated 0.90 (normal <0.40), suggestive of B12 deficiency. Her folate is normal 15. B6 is low 4, B1 110 (38-122). Her thyroid functions are normal as of 02/12/2019. * We will start B12 and B6 replacement. * Patient neurologically clear. * Patient being transferred to rehab.
[2019-03-12 15:14] VITALS: BMI 20.6
--- NOTE | 2019-03-12 16:06 | PN ---
PROGRESS NOTE Patient is seen for followup for CKD. There are plans for possible discharge. She has been doing fairly well in terms of her renal function. However, patient has been confused. She has been anxious and is maintained on tube feeding. She has not been eating much. Daughter is present at bedside today. PHYSICAL EXAMINATION: On examination, blood pressure was 166/86, heart rate 107 per minute. Patient is afebrile. EXAMINATION OF THE HEART: S1 and S2. EXAMINATION OF LUNGS: Bilateral breath sounds are heard. Decreased breath sounds at bases. ABDOMEN: Soft, non-tender. Examination of lower extremities shows no significant edema. SUPERMARKET MANAGER exam is grossly intact. LABS: Serum creatinine 1.6 today. Sodium 141, potassium 3.5. ASSESSMENT: 1. Chronic kidney disease secondary to nephrosclerosis, currently stable. 2. Acute kidney injury, acute tubular necrosis, now resolved. 3. Status post explorative laparotomy, sigmoid colectomy and colostomy. 4. Urinary tract infection, status post antibiotics. 5. Hypokalemia, status post replacement. PLAN: Patient is stable for discharge from nephrology standpoint. Follow up as outpatient. MMODL / IJN: [id number] /
[2019-03-12 16:26] VITALS: PULSE 92
[2019-03-12] MEDS ORDERED: SUCRALFATE 1 GM TAB PO SCH (17:30)
[2019-03-12] MEDS ORDERED: PANTOPRAZOLE 40 MG/10 ML VIAL IVP SCH (21:00)
--- NOTE | 2019-03-12 23:47 | PN ---
PROGRESS NOTE DATE OF SERVICE: 03/12/2019 REASON FOR FOLLOWUP: Perforated sigmoid diverticulitis, abdominal abscess, and UTI. INTERVAL HISTORY: The patient is currently afebrile. The patient has been breathing comfortably. The patient denies having any chest pain or cough. No nausea, vomiting, and no abdominal pain. Overall diarrhea has decreased significantly since yesterday after discontinuation of antibiotic. PHYSICAL EXAMINATION: Blood pressure 166/86 with a pulse of 95, temperature of 98.2. She is 92% on room air. General description is an elderly female lying in bed in no distress. RESPIRATORY SYSTEM: Unlabored breathing, clear to auscultation anteriorly. HEART: S1, S2. Regular rate and rhythm. ABDOMEN: Soft. No tenderness. LABS: Creatinine is 1.63. BUN of 25. Electrolytes are normal. DIAGNOSTIC IMPRESSION AND PLAN: Patient with perforated sigmoid diverticulitis, status post laparotomy and diverting colostomy. She subsequently did have abdominal abscess that has been drained. Culture has been negative. The patient has received more than 2 weeks of IV and oral antibiotic therapy, which has been more than enough. Currently monitor closely off antibiotic therapy. There is no need for any antibiotic on discharge. MMODL / IJN: [id number] /
== END 2019-03-12 17:36 | DRG 853 ==
LOC: EC 14:02 → 4SSUR 20:34 → 3SCARD 02-10 16:10 → 2SICU 02-12 14:28 → 3SCARD 02-12 15:56 → 2SICU 02-15 08:05 → 6NMEDSUR 03-09 06:51
PROVIDERS: ADMIT Internal Medicine; ATTEND Internal Medicine
PROC: 5A09357 Assistance with Respiratory Ventilation, Less than 24 Consecutive Hours, Continuous Positive Airway Pressure (ICD-10-PCS; 2019-02-12)
PROC: 0DTN0ZZ Resection of Sigmoid Colon, Open Approach (ICD-10-PCS; principal; 2019-02-12 07:30)
PROC: 0DNW0ZZ Release Peritoneum, Open Approach (ICD-10-PCS; principal; 2019-02-12 07:30)
PROC: 3E0336Z Introduction of Nutritional Substance into Peripheral Vein, Percutaneous Approach (ICD-10-PCS; 2019-02-14)
PROC: 02HV33Z Insertion of Infusion Device into Superior Vena Cava, Percutaneous Approach (ICD-10-PCS; 2019-02-23)
PROC: 0D9670Z Drainage of Stomach with Drainage Device, Via Natural or Artificial Opening (ICD-10-PCS; 2019-02-26)
PROC: 0W9J30Z Drainage of Pelvic Cavity with Drainage Device, Percutaneous Approach (ICD-10-PCS; 2019-02-26)
PROC: 30243N1 Transfusion of Nonautologous Red Blood Cells into Central Vein, Percutaneous Approach (ICD-10-PCS; 2019-03-05)
PROC: 0DH63UZ Insertion of Feeding Device into Stomach, Percutaneous Approach (ICD-10-PCS; 2019-03-06)
DX: A41.89 Other specified sepsis (principal); G93.41 Metabolic encephalopathy; I50.33 Acute on chronic diastolic (congestive) heart failure; J69.0 Pneumonitis due to inhalation of food and vomit; J96.01 Acute respiratory failure with hypoxia; N17.0 Acute kidney failure with tubular necrosis; K56.51 Intestinal adhesions [bands], with partial obstruction; E44.0 Moderate protein-calorie malnutrition; T83.518A Infection and inflammatory reaction due to other urinary catheter, initial encounter; D62 Acute posthemorrhagic anemia; E87.0 Hyperosmolality and hypernatremia; E87.1 Hypo-osmolality and hyponatremia; E87.4 Mixed disorder of acid-base balance; F03.91 Unspecified dementia, unspecified severity, with behavioral disturbance; F05 Delirium due to known physiological condition; I13.0 Hypertensive heart and chronic kidney disease with heart failure and stage 1 through stage 4 chronic kidney disease, or unspecified chronic kidney disease; J98.11 Atelectasis; K57.20 Diverticulitis of large intestine with perforation and abscess without bleeding; N18.4 Chronic kidney disease, stage 4 (severe); N30.41 Irradiation cystitis with hematuria; B37.49 Other urogenital candidiasis; A41.51 Sepsis due to Escherichia coli [E. coli]; A41.59 Other Gram-negative sepsis; E11.649 Type 2 diabetes mellitus with hypoglycemia without coma; I27.20 Pulmonary hypertension, unspecified; N13.70 Vesicoureteral-reflux, unspecified; D63.1 Anemia in chronic kidney disease; J98.6 Disorders of diaphragm; I95.9 Hypotension, unspecified; E11.22 Type 2 diabetes mellitus with diabetic chronic kidney disease; I49.3 Ventricular premature depolarization; E11.65 Type 2 diabetes mellitus with hyperglycemia; E53.8 Deficiency of other specified B group vitamins; E53.1 Pyridoxine deficiency; E61.1 Iron deficiency; E78.00 Pure hypercholesterolemia, unspecified; E78.5 Hyperlipidemia, unspecified; E86.1 Hypovolemia; E87.6 Hypokalemia; H91.93 Unspecified hearing loss, bilateral; I08.0 Rheumatic disorders of both mitral and aortic valves; I48.0 Paroxysmal atrial fibrillation; K52.9 Noninfective gastroenteritis and colitis, unspecified; M41.9 Scoliosis, unspecified; N31.9 Neuromuscular dysfunction of bladder, unspecified; R13.10 Dysphagia, unspecified; F32.9 Major depressive disorder, single episode, unspecified; R15.9 Full incontinence of feces; R74.8 Abnormal levels of other serum enzymes; B37.9 Candidiasis, unspecified; M15.9 Polyosteoarthritis, unspecified; R33.9 Retention of urine, unspecified; Z79.899 Other long term (current) drug therapy; Z90.5 Acquired absence of kidney; Z85.41 Personal history of malignant neoplasm of cervix uteri; Z85.59 Personal history of malignant neoplasm of other urinary tract organ; Z87.891 Personal history of nicotine dependence; Z92.3 Personal history of irradiation; Z90.49 Acquired absence of other specified parts of digestive tract; Z86.010 Personal history of colon polyps; Z98.42 Cataract extraction status, left eye; Z98.41 Cataract extraction status, right eye; Z96.1 Presence of intraocular lens; Y84.6 Urinary catheterization as the cause of abnormal reaction of the patient, or of later complication, without mention of misadventure at the time of the procedure
CPT/HCPCS: 36415; 36573; 43246; 71045; 71250; 74018; 74019; 74021; 74176; 74270; 75989; 76604; 76705; 80048; 80053; 81001; 82150; 82330; 82607; 82728; 82746; 83036; 83540; 83550; 83605; 83690; 83735; 83921; 84100; 84132; 84145; 84207; 84425; 84439; 84443; 84478; 84481; 85025; 85027; 85610; 85730; 86850; 86900; 86901; 86920; 87040; 87070; 87075; 87077; 87086; 87102; 87186; 87205; 88307; 89050; 93005; 93306; 94640; 94660; 94760; 96365; 96375; 99285

== ENCOUNTER 2019-09-30 16:37 | Inpatient (IN) | payer MEDICARE ==
[2019-09-30] MEDS ORDERED: MORPHINE SULFATE 2 MG/ML SYRINGE IVP STA (17:14)
[2019-09-30] MEDS ORDERED: SODIUM CHLORIDE 0.9% 500 ML 500 ML IV STA (17:14)
--- NOTE | 2019-09-30 17:38 | ED ---
General Adult HPI - General Chief complaint: Recheck/Abnormal Lab/Rx Stated complaint: altered mental status Time Seen by Provider: 09/30/19 16:55 Source: family, RN notes reviewed, old records reviewed Mode of arrival: wheelchair Limitations: no limitations - History of Present Illness Initial comments: 84-year-old presenting for evaluation of abdominal pain. This been ongoing for at least 3 days. History is obtained primary from the patient's daughter who is her caregiver. She has previous history of small bowel obstruction requiring resection and colostomy. She has an indwelling Murphy catheter. She's had a decreased appetite for the past several days as well. No history of vomiting. No history of fever. Additionally her daughter reports a chronic cough which is been present for several months. Patient is having normal stool output from her ostomy. - Related Data Home Medications Medication Instructions Recorded Confirmed Atorvastatin [Lipitor] 10 mg PO Q48H 02/07/19 02/09/19 Cholecalciferol [Vitamin D3 (25 1,000 unit PO DAILY 02/07/19 02/07/19 Mcg = 1000 Iu)] DULoxetine HCL [Cymbalta] 60 mg PO HS 02/07/19 02/09/19 amLODIPine [Norvasc] 5 mg PO BID 02/07/19 02/09/19 cloNIDine HCL [Catapres] 0.1 mg PO BID 02/07/19 02/09/19 hydrALAZINE HCL 50 mg PO BID-W/MEALS 02/07/19 02/09/19 Albuterol Sulfate [Ventolin HFA] 2 puff INHALATION RT-Q6H PRN 09/30/19 09/30/19 Allopurinol [Zyloprim] 100 mg PO DAILY 09/30/19 09/30/19 Calcium Carbonate [Calcium] 1,200 mg PO DAILY 09/30/19 09/30/19 Carboxymethylcellulose Sodium 1 drop BOTH EYES BID 09/30/19 09/30/19 [Refresh Tears] Collagenase [Santyl] 1 applic TOPICAL DAILY 09/30/19 09/30/19 Garlic 1 tab PO DAILY 09/30/19 09/30/19 Kidney Activator 1 tab PO BID 09/30/19 09/30/19 Levothyroxine Sodium [Synthroid] 112 mcg PO DAILY 09/30/19 09/30/19 Metoprolol Tartrate [Lopressor] 50 mg PO BID 09/30/19 09/30/19 Opti-Vitamin 1 tab PO DAILY 09/30/19 09/30/19 Sodium Bicarbonate Tab 650 mg PO BID 09/30/19 09/30/19 traZODone HCL 50 mg PO HS 09/30/19 09/30/19 Previous Rx's Medication Instructions Recorded Amiodarone [Cordarone] 200 mg PO BID tab 03/12/19 Apixaban [Eliquis] 2.5 mg PO BID tablet 03/12/19 Allergies Allergy/AdvReac Type Severity Reaction Status Date / Time No Known Allergies Allergy Verified 09/30/19 19:25 Review of Systems ROS Statement: Those systems with pertinent positive or pertinent negative responses have been documented in the HPI. ROS Other: All systems not noted in ROS Statement are negative. Past Medical History Past Medical History: Hyperlipidemia, Hypertension, Osteoarthritis (OA), Renal Disease Additional Past Medical History / Comment(s): one functioning kidney, cervical ca, urethral ca, right hip pain, colostomy History of Any Multi-Drug Resistant Organisms: MRSA Date of last positivie culture/infection: 06/29/19 MDRO Source:: ANKLE Past Surgical History: Appendectomy, Bowel Resection Additional Past Surgical History / Comment(s): bowel resection, kidney tumor removed Past Psychological History: No Psychological Hx Reported Smoking Status: Never smoker Past Alcohol Use History: None Reported Past Drug Use History: None Reported General Exam Limitations: no limitations General appearance: alert, in no apparent distress Head exam: Present: atraumatic, normocephalic Eye exam: Present: normal appearance, PERRL, EOMI ENT exam: Present: mucous membranes dry Neck exam: Present: normal inspection. Absent: tenderness, meningismus Respiratory exam: Present: normal lung sounds bilaterally. Absent: respiratory distress, wheezes Cardiovascular Exam: Present: regular rate, normal rhythm GI/Abdominal exam: Present: soft, tenderness (No tenderness, right lower quadrant), hernia (Incisional hernia, anterior abdominal wall), other (Ostomy). Absent: distended, guarding, rebound Extremities exam: Present: normal inspection, normal capillary refill. Absent: pedal edema, calf tenderness Back exam: Present: normal inspection Neurological exam: Present: alert, oriented X3, CN II-XII intact. Absent: motor sensory deficit Psychiatric exam: Present: normal affect, normal mood Skin exam: Present: warm, dry, intact. Absent: cyanosis, diaphoretic Course Vital Signs 09/30/19 09/30/19 09/30/19 16:47 17:06 17:30 Temperature 99.3 F Pulse Rate 64 65 Respiratory 18 18 Rate Blood Pressure 152/92 157/62 O2 Sat by Pulse 95 95 93 L Oximetry 09/30/19 09/30/19 18:00 19:46 Temperature Pulse Rate 63 65 Respiratory 17 Rate Blood Pressure 159/62 164/66 O2 Sat by Pulse 94 L 92 L Oximetry EKG Findings - EKG Comments: EKG Findings:: EKG: Normal sinus rhythm, no ST segment elevation, rate of 64, TX interval 170, QRS duration 100, QTC 474 Medical Decision Making - Medical Decision Making 84 yo female, no abdominal pain, complicated past medical history regarding multiple abdominal operations, ruptured appendix, laparotomy with colostomy. Patient has stable vitals with some abdominal tenderness. Workup is initiated. Patient has a leukocytosis, hemoglobin is stable. To prior. She has a transaminitis, elevated serum bilirubin, elevated alkaline phosphatase as well as amylase and lipase. CT does show acute on chronic cholecystitis as well as dilatation of the common bile duct. I did have a long discussion regarding the potential management including consultation with gastroenterology, general surgery, IV antibiotics, possible surgery. Patient has a DO NOT RESUSCITATE and at this time requests antibiotics orally. She does not want an evaluation by gastrology or general surgery. She will accept admission for IV antibiotics and IV fluids as well as pain control. Her daughter is at bedside and is agreeable with this plan. Case discussed with Dr. Engel, will admit. - Lab Data Result diagrams: 09/30/19 17:26 09/30/19 17:26 Lab Results 09/30/19 09/30/19 09/30/19 Range/Units 17:26 17:26 17:26 WBC 16.9 H (3.8-10.6) k/uL RBC 3.48 L (3.80-5.40) m/uL Hgb 10.7 L (11.4-16.0) gm/dL Hct 33.9 L (34.0-46.0) % MCV 97.3 (80.0-100.0) fL MCH 30.8 (25.0-35.0) pg MCHC 31.7 (31.0-37.0) g/dL RDW 16.2 H (11.5-15.5) % Plt Count 242 (150-450) k/uL Neutrophils % 83 % Lymphocytes % 7 % Monocytes % 5 % Eosinophils % 2 % Basophils % 0 % Neutrophils # 14.1 H (1.3-7.7) k/uL Lymphocytes # 1.3 (1.0-4.8) k/uL Monocytes # 0.9 (0-1.0) k/uL Eosinophils # 0.3 (0-0.7) k/uL Basophils # 0.1 (0-0.2) k/uL Hypochromasia Slight Anisocytosis Slight PT 11.6 (9.0-12.0) sec INR 1.1 (<1.2) APTT 28.4 (22.0-30.0) sec Sodium 137 (137-145) mmol/L Potassium 4.1 (3.5-5.1) mmol/L Chloride 109 H (98-107) mmol/L Carbon Dioxide 19 L (22-30) mmol/L Anion Gap 9 mmol/L BUN 46 H (7-17) mg/dL Creatinine 2.65 H (0.52-1.04) mg/dL Est GFR (CKD-EPI)AfAm 18 (>60 ml/min/1.73 sqM) Est GFR (CKD-EPI)NonAf 16 (>60 ml/min/1.73 sqM) Glucose 97 (74-99) mg/dL Plasma Lactic Acid Sahil (0.7-2.0) mmol/L Calcium 9.2 (8.4-10.2) mg/dL Total Bilirubin 2.1 H (0.2-1.3) mg/dL AST 48 H (14-36) U/L ALT 37 H (4-34) U/L Alkaline Phosphatase 288 H (38-126) U/L Total Protein 6.0 L (6.3-8.2) g/dL Albumin 3.1 L (3.5-5.0) g/dL Amylase 439 H* (30-110) U/L Lipase 1955 H (23-300) U/L Blood Type Blood Type Recheck Bld Type Recheck Status Antibody Screen Spec Expiration Date 08/05/20 08/05/20 Range/Units 17:26 17:26 WBC (3.8-10.6) k/uL RBC (3.80-5.40) m/uL Hgb (11.4-16.0) gm/dL Hct (34.0-46.0) % MCV (80.0-100.0) fL MCH (25.0-35.0) pg MCHC (31.0-37.0) g/dL RDW (11.5-15.5) % Plt Count (150-450) k/uL Neutrophils % % Lymphocytes % % Monocytes % % Eosinophils % % Basophils % % Neutrophils # (1.3-7.7) k/uL Lymphocytes # (1.0-4.8) k/uL Monocytes # (0-1.0) k/uL Eosinophils # (0-0.7) k/uL Basophils # (0-0.2) k/uL Hypochromasia Anisocytosis PT (9.0-12.0) sec INR (<1.2) APTT (22.0-30.0) sec Sodium (137-145) mmol/L Potassium (3.5-5.1) mmol/L Chloride (98-107) mmol/L Carbon Dioxide (22-30) mmol/L Anion Gap mmol/L BUN (7-17) mg/dL Creatinine (0.52-1.04) mg/dL Est GFR (CKD-EPI)AfAm (>60 ml/min/1.73 sqM) Est GFR (CKD-EPI)NonAf (>60 ml/min/1.73 sqM) Glucose (74-99) mg/dL Plasma Lactic Acid Sahil 1.1 (0.7-2.0) mmol/L Calcium (8.4-10.2) mg/dL Total Bilirubin (0.2-1.3) mg/dL AST (14-36) U/L ALT (4-34) U/L Alkaline Phosphatase (38-126) U/L Total Protein (6.3-8.2) g/dL Albumin (3.5-5.0) g/dL Amylase (30-110) U/L Lipase (23-300) U/L Blood Type A Positive Blood Type Recheck A Pos Bld Type Recheck Status No Antibody Screen NEGATIVE Spec Expiration Date 10/03/2019 - 2326 Disposition Clinical Impression: Transaminitis, Gallstone pancreatitis, Ascending cholangitis, Acute cholecystitis, Leukocytosis Disposition: ADMITTED IP TO THIS HOSP Condition: Serious Is patient prescribed a controlled substance at d/c from ED?: No Referrals: Rodriguez Engel MD [Primary Care Provider] - 1-2 days Decision to Admit Reason: Admit from EC Decision Date: 09/30/19 Decision Time: 19:36
[2019-09-30 17:41] LABS: Anisocytosis Slight; Basophils # (A) 0.1 k/uL (0-0.2); Basophils % (A) 0 %; Eosinophils # (A) 0.3 k/uL (0-0.7); Eosinophils % (A) 2 %; HCT 33.9 % (34.0-46.0); HGB 10.7 gm/dL (11.4-16.0); Hypochromasia Slight; Lymphocytes # (A) 1.3 k/uL (1.0-4.8); Lymphocytes % (A) 7 %; MCH 30.8 pg (25.0-35.0); MCHC 31.7 g/dL (31.0-37.0); MCV 97.3 fL (80.0-100.0); Mean Platelet Volume 7.7; Monocytes # (A) 0.9 k/uL (0-1.0); Monocytes % (A) 5 %; Neutrophils # (A) 14.1 k/uL (1.3-7.7); Neutrophils % (A) 83 %; Platelet Count 242 k/uL (150-450); RBC 3.48 m/uL (3.80-5.40); RDW 16.2 % (11.5-15.5); WBC 16.9 k/uL (3.8-10.6)
[2019-09-30 17:50] LABS: INR 1.1 (<1.2); Partial Thromboplastin Time 28.4 sec (22.0-30.0); Prothrombin Time 11.6 sec (9.0-12.0)
[2019-09-30 17:55] LABS: Albumin 3.1 g/dL (3.5-5.0); Calcium 9.2 mg/dL (8.4-10.2); Potassium 4.1 mmol/L (3.5-5.1); Total Bilirubin 2.1 mg/dL (0.2-1.3)
[2019-09-30] MEDS ORDERED: SODIUM CHLORIDE 0.9% 500 ML 500 ML IV ONE (18:28)
[2019-09-30] MEDS ORDERED: PIPERACILLIN-TAZOBACTAM 3.375 GM in SODIUM CHLORIDE 0.9% 100 ML IVPB STA (18:35)
--- NOTE | 2019-09-30 18:57 | CT ---
EXAMINATION TYPE: CT ChestAbdPelvis wo con DATE OF EXAM: 09/30/2019 COMPARISON: CT abdomen 03/03/2019 HISTORY: ams. hx of cervical ca. CT DLP: 596.6 mGycm Automated exposure control for dose reduction was used. Multiple axial sections were obtained from the thoracic inlet to the floor the pelvis without contras t. FINDINGS: There is some patchy infiltrate and atelectasis at the posterior lung bases. Heart is slightly enlarg ed. There is no pneumothorax. Thoracic aorta is atheromatous. There is no mediastinal adenopathy. The re is atherosclerotic vascular calcification. There are calcified endotracheal lymph nodes. There are no hilar masses. There is coronary artery calcification. There is no pericardial effusion. There is mild abdominal ascites. Gallbladder is dilated and measures 6.1 cm. There is high attenuatio n in the gallbladder consistent with vicarious excretion or unusually dense bile. The common bile jose t is dilated and measures 2.5 cm. There is mild enlargement of the intrahepatic bile ducts. There is a 2 cm hypodense area in the superior right lobe of the liver. Spleen is intact. There are multiple h ypodense areas throughout there pancreas consistent with multiple pseudocysts. Pancreatic duct is not dilated. There is a descending colostomy. There is peristomal hernia that contains omentum and possibly small bowel. I do not see evidence for small bowel obstruction. Left kidney is small and atrophic. Right kidney shows variable cortical thinning and atrophy. There i s bilateral hydronephrosis. Ureters are mildly ectatic. There is Murphy catheter in the urinary bladde r. Bladder is empty. I see no pelvic mass. There is no inguinal hernia. There are multiple colonic di verticula. I see no definite diverticulitis. There is hysterectomy. There is a degenerative first-deg ree L4-3-4 and L4-5 spondylolisthesis. There is 15% depression of the superior endplate of L1 vertebr a. I see no thoracic compression fracture. There is no thoracic paraspinal mass. The bony pelvis is i ntact. There is advanced osteoarthritis in the right hip joint with some features of chronic avascula r necrosis. There is moderately severe spinal stenosis at L3-4. IMPRESSION: There is been removal of the drainage catheter in the pelvis compared to old exam. No evidence of res idual abscess. There is some mild abdominal ascites. 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 Abdominal ascites appears new compared to old exam. There is improvement in the right side h ydronephrosis compared to old exam. Advanced left renal atrophy. Colonic moderate diverticulosis with out definite diverticulitis. There is a mild peristomal hernia that appears new compared to old exam. No evidence of bowel obstruc tion. Markedly dilated gallbladder is increased compared to old exam and consistent with acute and chronic cholecystitis. Biliary tree appears increased compared to old exam. Common bile duct is severely dila kiah. Obstruction of distal common bile duct is suspected and MRCP might be helpful for further evalua tion if clinically indicated. 2 cm hypodense area in the posterior superior right lobe of the liver appears new compared to old exa m. Metastatic disease is possible. This could be a manifestation also of the dilated biliary tree whi ch is significantly increased compared to old exam. Multiple cystic areas of the pancreas consistent with pseudocyst and chronic pancreatitis unchanged. Moderately severe L3-4 bony spinal stenosis.
[2019-09-30] MEDS ORDERED: HYDROmorphone 1 MG/ML 1 ML SYRINGE IVP PRN (19:30)
[2019-09-30] MEDS ORDERED: NALOXONE 0.4 MG/ML 1 ML VIAL IV PRN (19:30)
[2019-09-30] MEDS ORDERED: HYDROmorphone 0.5 MG/0.5 ML SYRINGE IVP PRN (19:30)
[2019-09-30] MEDS: SODIUM CHLORIDE 0.9% 1,000 ML IV SCH (19:48)
[2019-09-30 20:21] LABS: Amorphous Sediment,Urine Occasional /hpf; Appearance,Urine Cloudy (Clear); Bacteria,Urine Occasional /hpf; Bilirubin,Urine Negative (Negative); Blood,Urine Moderate (Negative); Color,Urine Yellow; Glucose,Urine (UA) Negative (Negative); Ketones,Urine Negative (Negative); Leukocyte Esterase,Urine Large (Negative); Mucus,Urine Rare /hpf; Nitrite,Urine Positive (Negative); Protein,Urine 2+ (Negative); RBC,Urine 10 /hpf (0-5); Specific Gravity,Urine 1.013 (1.001-1.035); Squamous Epithelial Cell,Urine 2 /hpf (0-4); Urobilinogen,Urine <2.0 mg/dL (<2.0); WBC,Urine 82 /hpf (0-5)
[2019-09-30] MEDS ORDERED: ALBUTEROL NEBULIZED 2.5 MG/3 ML INHALATION PRN (22:35)
[2019-09-30] MEDS: DULoxetine HCL 60 MG CAPSULE.DR PO SCH (23:13)
[2019-09-30] MEDS: SODIUM BICARBONATE TAB 650 MG TAB PO SCH (23:13)
[2019-09-30] MEDS: APIXABAN 2.5 MG TABLET PO SCH (23:13)
[2019-09-30] MEDS: AMIODARONE 200 MG TAB PO SCH (23:13)
[2019-09-30] MEDS: METOPROLOL TARTRATE 50 MG TAB PO SCH (23:13)
[2019-09-30] MEDS: traZODone HCL 50 MG TAB PO SCH (23:26)
[2019-09-30] MEDS: PIPERACILLIN-TAZOBACTAM 3.375 GM in SODIUM CHLORIDE 0.9% 100 ML IVPB SCH (23:27)
[2019-10-01] MEDS: SODIUM CHLORIDE 0.9% 1,000 ML IV SCH ×2 (01:52→10:43)
[2019-10-01] MEDS: LEVOTHYROXINE 112 MCG TAB PO SCH (05:38)
--- NOTE | 2019-10-01 07:56 | US ---
EXAMINATION TYPE: US gallbladder DATE OF EXAM: 10/01/2019 COMPARISON: CT from yesterday and older studies. CLINICAL HISTORY: Cholecystitis. History of cervical cancer, cholecystitis EXAM MEASUREMENTS: Liver Length: 16.0 cm Gallbladder Wall: 0.6 cm CBD: 2.6 cm Right Kidney: 10.4 x 3.8 x 3.9 cm Pancreas: multiple cystic areas noted, largest = 1.9cm Liver: heterogeneous, at least one hypoechoic area = 2.5cm Gallbladder: hydropic = 13.0cm, sludge, stones, thickened GB wall Evidence for sonographic Villagomez's sign: no CBD: dilated Right Kidney: hydronephrosis *free fluid noted RUQ Prominent pancreas with several thin-walled cysts. IVC seen near hepatic dome. Heterogeneously hypere choic liver. Intrahepatic ductal dilatation. Trace perihepatic ascites. Gallbladder has been margins with gallstones and/or gallbladder sludge. Severe extrahepatic biliary dilatation correlates with rec ent CT. Atrophied right kidney with persistent moderate hydronephrosis redemonstrated. IMPRESSION: Confirmation of new severe biliary dilatation. Suspect acute on chronic pancreatitis. Cor relate clinically. Persistent right-sided hydronephrosis. Findings may be on basis of peritoneal carc inomatosis.
[2019-10-01 07:58] LABS: Anisocytosis Slight; Basophils # (A) 0.1 k/uL (0-0.2); Basophils % (A) 0 %; Eosinophils # (A) 0.6 k/uL (0-0.7); Eosinophils % (A) 4 %; HCT 30.7 % (34.0-46.0); HGB 9.4 gm/dL (11.4-16.0); Hypochromasia Moderate; Lymphocytes # (A) 1.3 k/uL (1.0-4.8); Lymphocytes % (A) 9 %; MCH 30.6 pg (25.0-35.0); MCHC 30.7 g/dL (31.0-37.0); MCV 99.5 fL (80.0-100.0); Macrocytosis Slight; Mean Platelet Volume 7.5; Monocytes # (A) 0.9 k/uL (0-1.0); Monocytes % (A) 6 %; Neutrophils # (A) 10.9 k/uL (1.3-7.7); Neutrophils % (A) 77 %; Platelet Count 236 k/uL (150-450); RBC 3.08 m/uL (3.80-5.40); RDW 16.1 % (11.5-15.5); WBC 14.1 k/uL (3.8-10.6)
[2019-10-01 08:10] LABS: Albumin 2.4 g/dL (3.5-5.0); Bilirubin, Conjugated 1.8 mg/dL (0.0-0.3); Bilirubin, Delta 0.9 mg/dL (0.0-0.2); Bilirubin,Unconjugated 0.7 mg/dL (0.0-1.1); Calcium 8.1 mg/dL (8.4-10.2); Potassium 3.5 mmol/L (3.5-5.1); Total Bilirubin 3.4 mg/dL (0.2-1.3); Total Protein 4.9 g/dL (6.3-8.2)
[2019-10-01] MEDS: hydrALAZINE HCL 50 MG TAB PO SCH ×2 (08:17→17:09)
[2019-10-01] MEDS: PIPERACILLIN-TAZOBACTAM 3.375 GM in SODIUM CHLORIDE 0.9% 100 ML IVPB SCH ×2 (08:48→20:52)
[2019-10-01] MEDS ORDERED: NON FORMULARY DRUG (Garlic [Garlic] 1 TAB) PO SCH (09:00)
[2019-10-01] MEDS ORDERED: ACTIVATOR PO SCH (09:00)
[2019-10-01 09:29] LABS: Erythrocyte Sedimentation Rate 35 mm/hr (0-20)
[2019-10-01] MEDS: APIXABAN 2.5 MG TABLET PO SCH ×2 (09:44→17:10)
[2019-10-01] MEDS: SODIUM BICARBONATE TAB 650 MG TAB PO SCH ×2 (10:10→20:53)
[2019-10-01] MEDS: MULTIVITAMINS, THERA 1 EACH TAB PO SCH (10:10)
[2019-10-01] MEDS: allopurinoL 100 MG TAB PO SCH (10:10)
[2019-10-01] MEDS: ATORVASTATIN 10 MG TAB PO SCH (10:10)
[2019-10-01] MEDS: METOPROLOL TARTRATE 50 MG TAB PO SCH ×2 (10:10→20:53)
[2019-10-01] MEDS: CALCIUM CARBONATE 500 MG CHEWABLE PO SCH (10:10)
[2019-10-01] MEDS: cloNIDine HCL 0.1 MG TAB PO SCH (10:11)
[2019-10-01] MEDS: amLODIPine 5 MG TAB PO SCH (10:11)
[2019-10-01] MEDS: CHOLECALCIFEROL 1,000 UNIT TAB PO SCH (10:11)
[2019-10-01] MEDS: AMIODARONE 200 MG TAB PO SCH ×2 (10:11→20:53)
[2019-10-01] MEDS: ARTIFICIAL TEARS-HYPROMELLOSE DROPS 15 ML BTL BOTH EYES SCH ×2 (10:18→20:52)
[2019-10-01] MEDS: COLLAGENASE 250 UNIT/GM OINTMENT 30 GM TUBE TOPICAL SCH (10:20)
--- NOTE | 2019-10-01 13:15 | P.HPIM ---
History of Present Illness H&P Date: 10/01/19 (Abdominal pain for 3 days) Chief Complaint: Abdominal pain in the right sided of the abdomen with flexion of the other Chief complaint: Patient brought by her [id number] to [facility] emergency room by wheelchair. Chief complaint abdominal pain for 3 days with loss of appetite and not eating. 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 She has also history of recent admission to the hospital with a bowel obstruction, Dr. Sahu the surgeon at that time able to do resection and a colostomy and she needs well after that until recently when she had this acute bout of pain and constant and with the even light touch severe pain. In the ER they obtained a computed tomography scan of the abdomen and the finding was indicating gallbladder is dilated measuring 6.1 cm with [place] attenuation in the gallbladder consistent with the care ES execration or unusually dense bile. Also found, and bile duct is dilated and measuring 2.5 cm. There is mild enlargement of the intrahepatic bile duct. They also found to centimeter hypodense area in the superior right lobe of the liver this pain was intact there is also multiple hypodense area through the pancreas with the consistent with pseudocyst but the pancreatic duct is not dilated. And they have the [facility] CT of the abdomen they showed that patchy infiltrate or atelectasis of the lung basis with the enlarged heart but no pneumothorax. Left kidney is small and atrophic. And the right kidney showed variable cortical thinning and atrophy. And there is bilateral hydronephrosis. Ureter is mildly ectatic. And a Murphy catheter in the urinary bladder and it is empty they did not see any inguinal hernia or pelvic mass but that she had a colonic diverticula there is no diverticulitis. She had a hysterectomy. She had degenerative disc disease in L4 and L3 and L5 and L4 with the spondylolisthesis. 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 There is moderately severe spinal stenosis. The radiology indicating that she had also mild peristomal hernia. But no bowel obstruction and they recommended that MRCP. Her medication Lipitor 10 mg every 48 hours. Cymbalta 60 mg at at bedtime, amlodipine 5 mg twice a day, clonidine 0.1 mg twice a day, hydralazine 50 mg twice a day, and albuterol sulfate which "" event to lean HFA 2 inhalations 4 times a day, allopurinol 100 mg once daily, calcium carbonate 1200 mg daily, Refresh Tears or natural tears 1 drop both eyes twice a day. And Synthroid 112 mg by mouth daily metoprolol 50 mg twice a day up D vitamin 1 tablet daily sodium bicarbonate 650 twice a day and trazodone 50 mg at at bedtime she also has cold G [place] equals 2 centile SANTYL1 application topically on the back for the decubitus area she also was on ibex abandon and requests 2.5 mg twice a day and amiodarone 200 mg twice a day with the history of atrial fibrillation. Which is currently on normal sinus rhythm. ALLERGY is unknown. She has 1 son, nonsmoker nondrinker, new Review of system reviewed with the main concern is the abdominal pain with the association with the pancreatitis and the gallbladder and a stone in the common bile duct and increase the bilirubin no nausea or vomiting but loss of appetite. Cardiovascular she has history of hypertension with hypertensive heart disease. Pulmonary she had history of asthma and she is on inhalation of then to lean. Extremities and axial spine with advanced degenerative osteoarthritis with walking difficulties. History of depression Never smoked No alcohol use No drug use. On the physical examination patient is conscious alert however intermittent forgetfulness. The head was normocephalic and atraumatic, pupils equal reactive with the implant for cataract surgery, oropharynx she has dentures and able to eat and swallow Hearing impairment Chest is clear to auscultation and percussion. Heart: Regular sinus rhythm, history of atrial fib not present at this time, could be paroxysmal. Abdomen: Tender with a maximum tenderness on the right upper quadrant however the abdomen all other quadrant is tender on palpation. Extremities no edema and positive pulses. Neuro Neurologically: Stable no evidence of tremors no neuro deficit. Advanced degenerative osteoarthritis with the possibility of or the right hip and vascular necrosis, also advanced that she had an for degenerative disc disease of the spine. Laboratory: Her white count WBC 16.9 on admission, today 14.1. Hemoglobin 10.7 on admission today is 9.4 Hematocrit 33.9 on admission today is 30.7 Platelet 242 on admission today to 37. GFR 18 on admission today 20 and her blood sugar 97 on admission today on 07/1972 which is low. In regard of by bilirubin total 2.1 and today 3.4. The current lesion located 1.8 today and unconjugated 0.7. Lactic acid 1.1 on admission. On admission ER lab indicating sodium 137 potassium 4.1 chloride 109 carbon dioxide 19 and BUN 46 and the creatinine 2.65. On 86 today sodium 140 and potassium 3.5 chloride 112 and carbon dioxide 21, BUN of 43 and creatinine 2.51. Her AST 48 on admission today 45. A LT 37 on admission and today 33. Alk phos 288 on admission and today 267. Her total protein 6 with albumin 3.1 on admission and today total protein 4.9 with the albumin 2.4 dropping. Serum on [facility] was elevated 439 on admission. Serum lipase 1955 on admission and today 665 The assessment: #1 acute cholecystitis with cholelithiasis and probable obstruction of the common bile duct with the sepsis. #2 urinary tract infection with the underlying compromised renal function. #3 atrophic left kidney with almost no function. #4 the right kidney also diseased with history of ureter to reveal more has been removed and compromised. #5 Murphy catheter with the chronic urinary retention of the bladder, patient used to do self the catheterization, could not do it anymore and treated with Murphy catheter. #6 right hip advanced degenerative arthritis with the possible have vascular necrosis, associated with walking difficulties. #7 abnormal elevation of lipase and Amylase suggestive of pancreatitis with a pseudocyst mild. #8 recent history of bilateral obstruction and history of resection of colon with the colostomy bag. Plan: #1 consultation with infectious disease Dr. Bernardo. #[address] Wesley Zhang/Dr. Arrington. #3 consultation with the gastroenterology with the underlying question of using ERCP versus MRCP and evaluation of possible treatment method for Dr. Meme FLORES/Dr. Juanito mcconnell. #4 consultation with the general surgeon Dr. Sahu. #5 IV antibiotic Zosyn to continue on total Dr. Bernardo infectious disease evaluate and treat. #6 because of the loss of appetite and mild elevation of chloride as well as drop in the glucose will change the IV fluid to D5 lactated ringer in the rate of 100 mL an hour Past Medical History Past Medical History: Hyperlipidemia, Hypertension, Osteoarthritis (OA), Renal Disease Additional Past Medical History / Comment(s): one functioning kidney, cervical ca, urethral ca, right hip pain, colostomy History of Any Multi-Drug Resistant Organisms: MRSA Date of last positivie culture/infection: 06/29/19 MDRO Source:: ANKLE Past Surgical History: Appendectomy, Bowel Resection Additional Past Surgical History / Comment(s): bowel resection, kidney tumor removed Past Psychological History: No Psychological Hx Reported Smoking Status: Never smoker Past Alcohol Use History: None Reported Past Drug Use History: None Reported Medications and Allergies Home Medications Medication Instructions Recorded Confirmed Type Atorvastatin [Lipitor] 10 mg PO Q48H 02/07/19 09/30/19 History Cholecalciferol [Vitamin D3 (25 2,000 unit PO DAILY 02/07/19 09/30/19 History Mcg = 1000 Iu)] DULoxetine HCL [Cymbalta] 60 mg PO HS 02/07/19 09/30/19 History amLODIPine [Norvasc] 5 mg PO DAILY 02/07/19 09/30/19 History cloNIDine HCL [Catapres] 0.1 mg PO DAILY 02/07/19 09/30/19 History hydrALAZINE HCL 50 mg PO BID-W/MEALS 02/07/19 09/30/19 History Amiodarone [Cordarone] 200 mg PO BID tab 03/12/19 09/30/19 Rx Apixaban [Eliquis] 2.5 mg PO BID tablet 03/12/19 09/30/19 Rx Albuterol Sulfate [Ventolin HFA] 2 puff INHALATION RT-Q6H PRN 09/30/19 09/30/19 History Allopurinol [Zyloprim] 100 mg PO DAILY 09/30/19 09/30/19 History Calcium Carbonate [Calcium] 1,200 mg PO DAILY 09/30/19 09/30/19 History Carboxymethylcellulose Sodium 1 drop BOTH EYES BID 09/30/19 09/30/19 History [Refresh Tears] Collagenase [Santyl] 1 applic TOPICAL DAILY 09/30/19 09/30/19 History Garlic 1 tab PO DAILY 09/30/19 09/30/19 History Kidney Activator 1 tab PO BID 09/30/19 09/30/19 History Levothyroxine Sodium [Synthroid] 112 mcg PO DAILY 09/30/19 09/30/19 History Metoprolol Tartrate [Lopressor] 50 mg PO BID 09/30/19 09/30/19 History Opti-Vitamin 1 tab PO DAILY 09/30/19 09/30/19 History Sodium Bicarbonate Tab 650 mg PO BID 09/30/19 09/30/19 History traZODone HCL 50 mg PO HS 09/30/19 09/30/19 History Allergies Allergy/AdvReac Type Severity Reaction Status Date / Time No Known Allergies Allergy Verified 09/30/19 19:25 Physical Exam Vitals: Vital Signs Temp Pulse Pulse Resp BP BP Pulse Ox 10/01/19 09:16 16 10/01/19 07:39 98.1 F 63 18 152/67 95 10/01/19 01:46 98.5 F 61 18 134/45 94 L 09/30/19 22:00 98.1 F 66 18 178/56 94 L 09/30/19 20:50 64 18 153/66 94 L 09/30/19 19:46 65 164/66 92 L 09/30/19 18:00 63 17 159/62 94 L 09/30/19 17:30 65 18 157/62 93 L 09/30/19 17:06 95 09/30/19 16:47 99.3 F 64 18 152/92 95 Intake and Output 09/30/19 10/01/19 10/01/19 22:59 06:59 14:59 Output Total 500 Balance -500 Output: Urine 400 Stool 100 Other: Voiding Method Indwelling Catheter Indwelling Catheter Weight 63.503 kg Results CBC & Chem 7: 10/01/19 07:37 10/01/19 07:37 Labs: Abnormal Lab Results - Last 24 Hours (Table) 09/30/19 09/30/19 09/30/19 Range/Units 17:21 17:26 17:26 WBC 16.9 H (3.8-10.6) k/uL RBC 3.48 L (3.80-5.40) m/uL Hgb 10.7 L (11.4-16.0) gm/dL Hct 33.9 L (34.0-46.0) % MCHC (31.0-37.0) g/dL RDW 16.2 H (11.5-15.5) % Neutrophils # 14.1 H (1.3-7.7) k/uL ESR (0-20) mm/hr Chloride 109 H (98-107) mmol/L Carbon Dioxide 19 L (22-30) mmol/L BUN 46 H (7-17) mg/dL Creatinine 2.65 H (0.52-1.04) mg/dL Glucose (74-99) mg/dL Calcium (8.4-10.2) mg/dL Total Bilirubin 2.1 H (0.2-1.3) mg/dL Conjugated Bilirubin (0.0-0.3) mg/dL Delta Bilirubin (0.0-0.2) mg/dL AST 48 H (14-36) U/L ALT 37 H (4-34) U/L Alkaline Phosphatase 288 H (38-126) U/L Total Protein 6.0 L (6.3-8.2) g/dL Albumin 3.1 L (3.5-5.0) g/dL Amylase 439 H* (30-110) U/L Lipase 1955 H (23-300) U/L Urine Appearance Cloudy H (Clear) Urine Protein 2+ H (Negative) Urine Blood Moderate H (Negative) Urine Nitrite Positive H (Negative) Ur Leukocyte Esterase Large H (Negative) Urine RBC 10 H (0-5) /hpf Urine WBC 82 H (0-5) /hpf Urine WBC Clumps Many H (None) /hpf Amorphous Sediment Occasional H (None) /hpf Urine Bacteria Occasional H (None) /hpf Urine Mucus Rare H (None) /hpf 10/01/19 10/01/19 10/01/19 Range/Units 07:37 07:37 07:37 WBC 14.1 H (3.8-10.6) k/uL RBC 3.08 L (3.80-5.40) m/uL Hgb 9.4 L (11.4-16.0) gm/dL Hct 30.7 L (34.0-46.0) % MCHC 30.7 L (31.0-37.0) g/dL RDW 16.1 H (11.5-15.5) % Neutrophils # 10.9 H (1.3-7.7) k/uL ESR 35 H (0-20) mm/hr Chloride 112 H (98-107) mmol/L Carbon Dioxide 21 L (22-30) mmol/L BUN 43 H (7-17) mg/dL Creatinine 2.51 H (0.52-1.04) mg/dL Glucose 73 L (74-99) mg/dL Calcium 8.1 L (8.4-10.2) mg/dL Total Bilirubin 3.4 H (0.2-1.3) mg/dL Conjugated Bilirubin 1.8 H (0.0-0.3) mg/dL Delta Bilirubin 0.9 H (0.0-0.2) mg/dL AST 45 H (14-36) U/L ALT (4-34) U/L Alkaline Phosphatase 267 H (38-126) U/L Total Protein 4.9 L (6.3-8.2) g/dL Albumin 2.4 L (3.5-5.0) g/dL Amylase (30-110) U/L Lipase 665 H (23-300) U/L Urine Appearance (Clear) Urine Protein (Negative) Urine Blood (Negative) Urine Nitrite (Negative) Ur Leukocyte Esterase (Negative) Urine RBC (0-5) /hpf Urine WBC (0-5) /hpf Urine WBC Clumps (None) /hpf Amorphous Sediment (None) /hpf Urine Bacteria (None) /hpf Urine Mucus (None) /hpf Microbiology - Last 24 Hours (Table) 09/30/19 17:21 Urine Culture - Preliminary Urine,Voided Thrombosis Risk Factor Assmnt - Choose All That Apply Any of the Below Risk Factors Present?: Yes Other Risk Factors: Yes Each Risk Factor Represents 3 Points: Age 75 years or older Thrombosis Risk Factor Assessment Total Risk Factor Score: 3 Thrombosis Risk Factor Assessment Level: Moderate Risk
[2019-10-01] MEDS: DEXTROSE 5%-LACTATED RINGERS 1,000 ML IV SCH (13:53)
--- NOTE | 2019-10-01 14:59 | P.GSCN ---
History of Present Illness Consult date: 10/01/19 Reason for Consult: Abdominal pain History of present illness: 84-year-old female well-known to our service. Patient was seen in January for a colonic obstruction with perforation from [place] oral ulcer. Underwent Emanuel's procedure. Patient had a prolonged ileus with a prolonged postoperative course following that. Gradually she improved post discharge. Apparently for the last 3 days has been having abdominal discomfort. Currently she points to the right upper quadrant. Patient with history of urinary retention and has a Murphy catheter in place for that reason. Patient has a complex medical history. Some of her issues pertinent to the abdomen include previous ureteral resection on the right, right colectomy for appendicitis 3 years ago, pelvic radiation with significant abdominal adhesions, previous CAT scan from January last year showing pancreatic cysts. Patient in the ER was found to have an elevated white blood cell count. Her liver enzymes are also elevated in addition to her amylase and lipase consistent with acute pancreatitis. CAT scan chest abdomen and pelvis demonstrates significant dilatation of the intra-and extrahepatic biliary tree extending down to the head of the duodenum. There is inflammatory changes of the pancreas with pseudocyst present. There may be dilation of the pancreatic duct as well although difficult to say with certainty. Patient does feel better. Denies pain currently. No vomiting. Normal bowel function through ostomy. Some ascites on CAT scan. Patient has been seen by GI. MRCP is ordered. Ultrasound was performed showing possible small stones or sludge with a distended gallbladder and biliary dilation. Review of Systems Review of systems unreliable given the patient's confusion. Past Medical History Past Medical History: Hyperlipidemia, Hypertension, Osteoarthritis (OA), Renal Disease Additional Past Medical History / Comment(s): one functioning kidney, cervical ca, urethral ca, right hip pain, colostomy History of Any Multi-Drug Resistant Organisms: MRSA Year Discovered:: 06/29/19 MDRO Source:: ANKLE Past Surgical History: Appendectomy, Bowel Resection Additional Past Surgical History / Comment(s): bowel resection, kidney tumor r emoved Past Psychological History: No Psychological Hx Reported Smoking Status: Never smoker Past Alcohol Use History: None Reported Past Drug Use History: None Reported Medications and Allergies Home Medications Medication Instructions Recorded Confirmed Type Atorvastatin [Lipitor] 10 mg PO Q48H 02/07/19 09/30/19 History Cholecalciferol [Vitamin D3 (25 2,000 unit PO DAILY 02/07/19 09/30/19 History Mcg = 1000 Iu)] DULoxetine HCL [Cymbalta] 60 mg PO HS 02/07/19 09/30/19 History amLODIPine [Norvasc] 5 mg PO DAILY 02/07/19 09/30/19 History cloNIDine HCL [Catapres] 0.1 mg PO DAILY 02/07/19 09/30/19 History hydrALAZINE HCL 50 mg PO BID-W/MEALS 02/07/19 09/30/19 History Amiodarone [Cordarone] 200 mg PO BID tab 03/12/19 09/30/19 Rx Apixaban [Eliquis] 2.5 mg PO BID tablet 03/12/19 09/30/19 Rx Albuterol Sulfate [Ventolin HFA] 2 puff INHALATION RT-Q6H PRN 09/30/19 09/30/19 History Allopurinol [Zyloprim] 100 mg PO DAILY 09/30/19 09/30/19 History Calcium Carbonate [Calcium] 1,200 mg PO DAILY 09/30/19 09/30/19 History Carboxymethylcellulose Sodium 1 drop BOTH EYES BID 09/30/19 09/30/19 History [Refresh Tears] Collagenase [Santyl] 1 applic TOPICAL DAILY 09/30/19 09/30/19 History Garlic 1 tab PO DAILY 09/30/19 09/30/19 History Kidney Activator 1 tab PO BID 09/30/19 09/30/19 History Levothyroxine Sodium [Synthroid] 112 mcg PO DAILY 09/30/19 09/30/19 History Metoprolol Tartrate [Lopressor] 50 mg PO BID 09/30/19 09/30/19 History Opti-Vitamin 1 tab PO DAILY 09/30/19 09/30/19 History Sodium Bicarbonate Tab 650 mg PO BID 09/30/19 09/30/19 History traZODone HCL 50 mg PO HS 09/30/19 09/30/19 History Allergies Allergy/AdvReac Type Severity Reaction Status Date / Time No Known Allergies Allergy Verified 09/30/19 19:25 Surgical - Exam Vital Signs Temp Pulse Resp BP Pulse Ox 99.3 F 64 18 152/92 95 09/30/19 16:47 09/30/19 16:47 09/30/19 16:47 09/30/19 16:47 09/30/19 16:47 Physical exam: General: Well-developed, well-nourished HEENT: Normocephalic, sclerae slightly icteric Abdomen: Mild distention, mild diffuse tenderness increased right upper quadrant, previous incisions well healed, ostomy functioning Extremities: No edema Neuro: Alert and pleasant but confused Results - Labs 10/01/19 07:37 10/01/19 07:37 Abnormal Lab Results - Last 24 Hours (Table) 09/30/19 09/30/19 09/30/19 Range/Units 17:21 17:26 17:26 WBC 16.9 H (3.8-10.6) k/uL RBC 3.48 L (3.80-5.40) m/uL Hgb 10.7 L (11.4-16.0) gm/dL Hct 33.9 L (34.0-46.0) % MCHC (31.0-37.0) g/dL RDW 16.2 H (11.5-15.5) % Neutrophils # 14.1 H (1.3-7.7) k/uL ESR (0-20) mm/hr Chloride 109 H (98-107) mmol/L Carbon Dioxide 19 L (22-30) mmol/L BUN 46 H (7-17) mg/dL Creatinine 2.65 H (0.52-1.04) mg/dL Glucose (74-99) mg/dL Calcium (8.4-10.2) mg/dL Total Bilirubin 2.1 H (0.2-1.3) mg/dL Conjugated Bilirubin (0.0-0.3) mg/dL Delta Bilirubin (0.0-0.2) mg/dL AST 48 H (14-36) U/L ALT 37 H (4-34) U/L Alkaline Phosphatase 288 H (38-126) U/L Total Protein 6.0 L (6.3-8.2) g/dL Albumin 3.1 L (3.5-5.0) g/dL Amylase 439 H* (30-110) U/L Lipase 1955 H (23-300) U/L Urine Appearance Cloudy H (Clear) Urine Protein 2+ H (Negative) Urine Blood Moderate H (Negative) Urine Nitrite Positive H (Negative) Ur Leukocyte Esterase Large H (Negative) Urine RBC 10 H (0-5) /hpf Urine WBC 82 H (0-5) /hpf Urine WBC Clumps Many H (None) /hpf Amorphous Sediment Occasional H (None) /hpf Urine Bacteria Occasional H (None) /hpf Urine Mucus Rare H (None) /hpf 10/01/19 10/01/19 10/01/19 Range/Units 07:37 07:37 07:37 WBC 14.1 H (3.8-10.6) k/uL RBC 3.08 L (3.80-5.40) m/uL Hgb 9.4 L (11.4-16.0) gm/dL Hct 30.7 L (34.0-46.0) % MCHC 30.7 L (31.0-37.0) g/dL RDW 16.1 H (11.5-15.5) % Neutrophils # 10.9 H (1.3-7.7) k/uL ESR 35 H (0-20) mm/hr Chloride 112 H (98-107) mmol/L Carbon Dioxide 21 L (22-30) mmol/L BUN 43 H (7-17) mg/dL Creatinine 2.51 H (0.52-1.04) mg/dL Glucose 73 L (74-99) mg/dL Calcium 8.1 L (8.4-10.2) mg/dL Total Bilirubin 3.4 H (0.2-1.3) mg/dL Conjugated Bilirubin 1.8 H (0.0-0.3) mg/dL Delta Bilirubin 0.9 H (0.0-0.2) mg/dL AST 45 H (14-36) U/L ALT (4-34) U/L Alkaline Phosphatase 267 H (38-126) U/L Total Protein 4.9 L (6.3-8.2) g/dL Albumin 2.4 L (3.5-5.0) g/dL Amylase (30-110) U/L Lipase 665 H (23-300) U/L Urine Appearance (Clear) Urine Protein (Negative) Urine Blood (Negative) Urine Nitrite (Negative) Ur Leukocyte Esterase (Negative) Urine RBC (0-5) /hpf Urine WBC (0-5) /hpf Urine WBC Clumps (None) /hpf Amorphous Sediment (None) /hpf Urine Bacteria (None) /hpf Urine Mucus (None) /hpf Microbiology - Last 24 Hours (Table) 09/30/19 17:21 Urine Culture - Preliminary Urine,Voided Diabetes panel 09/30/19 10/01/19 Range/Units 17:26 07:37 Sodium 137 140 (137-145) mmol/L Potassium 4.1 3.5 (3.5-5.1) mmol/L Chloride 109 H 112 H (98-107) mmol/L Carbon Dioxide 19 L 21 L (22-30) mmol/L BUN 46 H 43 H (7-17) mg/dL Creatinine 2.65 H 2.51 H (0.52-1.04) mg/dL Glucose 97 73 L (74-99) mg/dL Calcium 9.2 8.1 L (8.4-10.2) mg/dL AST 48 H 45 H (14-36) U/L ALT 37 H 33 (4-34) U/L Alkaline Phosphatase 288 H 267 H (38-126) U/L Total Protein 6.0 L 4.9 L (6.3-8.2) g/dL Albumin 3.1 L 2.4 L (3.5-5.0) g/dL Calcium panel 09/30/19 10/01/19 Range/Units 17:26 07:37 Calcium 9.2 8.1 L (8.4-10.2) mg/dL Albumin 3.1 L 2.4 L (3.5-5.0) g/dL Pituitary panel 09/30/19 10/01/19 Range/Units 17:26 07:37 Sodium 137 140 (137-145) mmol/L Potassium 4.1 3.5 (3.5-5.1) mmol/L Chloride 109 H 112 H (98-107) mmol/L Carbon Dioxide 19 L 21 L (22-30) mmol/L BUN 46 H 43 H (7-17) mg/dL Creatinine 2.65 H 2.51 H (0.52-1.04) mg/dL Glucose 97 73 L (74-99) mg/dL Calcium 9.2 8.1 L (8.4-10.2) mg/dL Adrenal panel 09/30/19 10/01/19 Range/Units 17:26 07:37 Sodium 137 140 (137-145) mmol/L Potassium 4.1 3.5 (3.5-5.1) mmol/L Chloride 109 H 112 H (98-107) mmol/L Carbon Dioxide 19 L 21 L (22-30) mmol/L BUN 46 H 43 H (7-17) mg/dL Creatinine 2.65 H 2.51 H (0.52-1.04) mg/dL Glucose 97 73 L (74-99) mg/dL Calcium 9.2 8.1 L (8.4-10.2) mg/dL Total Bilirubin 2.1 H 3.4 H (0.2-1.3) mg/dL AST 48 H 45 H (14-36) U/L ALT 37 H 33 (4-34) U/L Alkaline Phosphatase 288 H 267 H (38-126) U/L Total Protein 6.0 L 4.9 L (6.3-8.2) g/dL Albumin 3.1 L 2.4 L (3.5-5.0) g/dL Assessment and Plan (1) Gallstone pancreatitis Narrative/Plan: 84-year-old female with gallstone pancreatitis. Underlying distal CBD obstruction from malignancy not excluded. ERCP will likely be required however MRCP ordered as an initial assessment which is not unreasonable. Continue nothing by mouth status. Continue empiric antibiotics. We'll follow closely. Current Visit: Yes Status: Acute Code(s): K85.10 - BILIARY ACUTE PANCREATITIS WITHOUT NECROSIS OR INFECTION SNOMED Code(s): 14334092
[2019-10-01] MEDS: traZODone HCL 50 MG TAB PO SCH (20:53)
[2019-10-01] MEDS: DULoxetine HCL 60 MG CAPSULE.DR PO SCH (20:53)
--- NOTE | 2019-10-01 22:29 | CONS ---
CONSULTATION DATE OF DICTATION: 10/01/2019 REASON FOR CONSULTATION: Abdominal pain, elevated LFTs, jaundice and dilated CBD. HISTORY OF PRESENT ILLNESS: The patient is an 84-year-old pleasant white female admitted to the hospital with severe epigastric pain with severe epigastric and right upper quadrant abdominal pain for the last 3 days' duration. The pain continued to progressively get worse, associated with some nausea, and hence she came into the emergency room and subsequently was admitted for further evaluation. She was noted to have elevated LFTs with a bilirubin of 3.4 and mild elevation of serum transaminases. She had an ultrasound of the gallbladder done that showed evidence of gallstones with thick and dilated CBD at 2 cm with intrahepatic biliary ductal dilation. Hence we are consulted for possible choledocholithiasis. The patient this morning is feeling better. The epigastric pain has improved. Nausea and vomiting have resolved. She is status post colostomy in January of 2019 when she presented with a colonic obstruction. She underwent Fahad's procedure by Dr. Miller she underwent right hemicolectomy. She did have a CT of the abdomen and pelvis done also that showed evidence of dilated CBD measuring 2.1 cm, inflammation of the pancreas. Some amount of abdominal ascites was noted. Peristomal hernia. Markedly dilated gallbladder and 2 cm hypodensity in the right lobe of the liver. PAST MEDICAL HISTORY: Her past medical history is significant for hypertension, hyperlipidemia, COPD, anxiety, depression, degenerative joint disease, chronic kidney disease. PAST SURGICAL HISTORY: Colostomy in January of 2019 for bowel obstruction, appendectomy. MEDICATIONS: Medications at home include trazodone, sodium bicarb, Lopressor, Synthroid, garlic, Artificial Tears, calcium, Zyloprim, Lipitor, Cymbalta, Catapres, hydralazine, Ventolin, Norvasc, vitamin D3. ALLERGIES: NONE. SOCIAL HISTORY: No smoking. No alcohol use. FAMILY HISTORY: Unremarkable. REVIEW OF SYSTEMS: CARDIOPULMONARY: No chest pain or shortness of breath. GENITOURINARY: No dysuria or hematuria. MUSCULOSKELETAL: Unremarkable. SKIN: Unremarkable. ENDOCRINE: Unremarkable. PSYCHIATRIC: Unremarkable. NEUROLOGY: Unremarkable. ENT/VISION: Unremarkable. CONSTITUTIONAL: No recent weight loss. No fever, chills, night sweats. PHYSICAL EXAMINATION: She appears comfortable. No apparent distress. VITAL SIGNS: Stable. Blood pressure is 144/58, pulse rate 67, temperature 98.3. HEENT examination unremarkable. Conjunctivae pink. Sclerae anicteric. Oral cavity no lesions. NECK: No JVD or lymph node enlargement. CHEST: Clear to auscultation. HEART: Regular rate and rhythm. ABDOMEN: Soft. Colostomy bag in the left upper quadrant. There is mild tenderness in the epigastric area. Rest of the abdomen benign. EXTREMITIES: No pedal edema. SKIN: No rashes. NEUROLOGIC: Alert and oriented x3. No focal deficits. LABS: Labs done at the time of admission to the hospital yesterday showed WBC 16.9, hemoglobin 10.7, platelets normal. Basic metabolic panel is within normal limits. AST and ALT were slightly elevated at 48 and 27, respectively. Alkaline phosphatase is 288 and T-bilirubin 2.1. Today T-bilirubin went up to 3.1. AST and ALT are 45 and 33, respectively, and alkaline phosphatase is 267. Amylase 439, lipase 1955. Today lipase is down to 665. IMPRESSION: 1. This is a lady who presented with epigastric and right upper quadrant abdominal pain for the last 3 days' duration. Labs revealed elevated amylase and lipase and elevated LFTs, all consistent with acute gallstone pancreatitis. CT of the abdomen did show dilated common bile duct with mild elevation of serum transaminases as well as up to 3.2. Possibility of choledocholithiasis cannot be excluded. Her pancreatic enzymes are improving. 2. Recent history of colostomy for colonic obstruction performed in January [address] Miller. 3. History of hypertension and hyperlipidemia. 4. History of gastroesophageal reflux disease. 5. Atrial fibrillation, on Coumadin. 6. History of anxiety and depression. RECOMMENDATIONS: 1. Continue with broad-spectrum antibiotics. 2. Monitor LFTs closely. 3. Will schedule the patient for MRCP to evaluate for CBD stones, and based on that we will decide if she needs any endoscopic intervention. 4. Continue to hold Eliquis. 5. Start her on clear liquid diet. 6. Will follow with you closely. Thank you for this consultation. MMODL / IJN: [id number] /
[2019-10-02] MEDS: DEXTROSE 5%-LACTATED RINGERS 1,000 ML IV SCH ×2 (00:05→03:53)
--- NOTE | 2019-10-02 00:09 | P.CONS ---
History of Present Illness - Reason for Consult Consult date: 10/01/19 Cholecystitis and leukocytosis Requesting physician: Rodriguez Engel - Chief Complaint Abdominal pain x 3 days - History of Present Illness Patient is 84-year-old female presenting to the ER at [facility] yesterday with chief complaints of abdominal pain that eventually going on for about 3 days patient is when pain to be more in the right upper quadrant area is currently the pain to more of a sharp nature that has gradually increased in intensity to be almost 10 out of 10 by the time she was in the hospital patient did have associated nausea but no vomiting and denies having any diarrhea and no chest pain shortness of breath of denies high-grade fever and did have some chills though with the symptom the patient was evaluated by ER physician on arrival clear patient did have low-grade fever of 99F the patient did have elevated white count also noted to have elevated bilirubin and liver enzymes and lipase patient did have a CT of abdominal pelvis with features of dilated gallbladder as well as intra-abdominal hepatic dilated bile text and features of pancreatitis with cyst ultrasound confirmed the finding of the gallbladder patient was started on Zosyn and infectious disease was consulted for further management of antibiotic therapy patient also noticed to have a positive UA should do have some difficulty urination but no significant burning or suprapubic or flank pain and urinary showing gram-negative bacilli Review of Systems Positive point has been mentioned in the HPI rest of the systems are negative Past Medical History Past Medical History: Hyperlipidemia, Hypertension, Osteoarthritis (OA), Renal Disease Additional Past Medical History / Comment(s): one functioning kidney, cervical ca, urethral ca, right hip pain, colostomy History of Any Multi-Drug Resistant Organisms: MRSA Year Discovered:: 06/29/19 MDRO Source:: ANKLE Past Surgical History: Appendectomy, Bowel Resection Additional Past Surgical History / Comment(s): bowel resection, kidney tumor removed Past Psychological History: No Psychological Hx Reported Smoking Status: Never smoker Past Alcohol Use History: None Reported Past Drug Use History: None Reported Medications and Allergies Home Medications Medication Instructions Recorded Confirmed Type Atorvastatin [Lipitor] 10 mg PO Q48H 02/07/19 09/30/19 History Cholecalciferol [Vitamin D3 (25 2,000 unit PO DAILY 02/07/19 09/30/19 History Mcg = 1000 Iu)] DULoxetine HCL [Cymbalta] 60 mg PO HS 02/07/19 09/30/19 History amLODIPine [Norvasc] 5 mg PO DAILY 02/07/19 09/30/19 History cloNIDine HCL [Catapres] 0.1 mg PO DAILY 02/07/19 09/30/19 History hydrALAZINE HCL 50 mg PO BID-W/MEALS 02/07/19 09/30/19 History Amiodarone [Cordarone] 200 mg PO BID tab 03/12/19 09/30/19 Rx Apixaban [Eliquis] 2.5 mg PO BID tablet 03/12/19 09/30/19 Rx Albuterol Sulfate [Ventolin HFA] 2 puff INHALATION RT-Q6H PRN 09/30/19 09/30/19 History Allopurinol [Zyloprim] 100 mg PO DAILY 09/30/19 09/30/19 History Calcium Carbonate [Calcium] 1,200 mg PO DAILY 09/30/19 09/30/19 History Carboxymethylcellulose Sodium 1 drop BOTH EYES BID 09/30/19 09/30/19 History [Refresh Tears] Collagenase [Santyl] 1 applic TOPICAL DAILY 09/30/19 09/30/19 History Garlic 1 tab PO DAILY 09/30/19 09/30/19 History Kidney Activator 1 tab PO BID 09/30/19 09/30/19 History Levothyroxine Sodium [Synthroid] 112 mcg PO DAILY 09/30/19 09/30/19 History Metoprolol Tartrate [Lopressor] 50 mg PO BID 09/30/19 09/30/19 History Opti-Vitamin 1 tab PO DAILY 09/30/19 09/30/19 History Sodium Bicarbonate Tab 650 mg PO BID 09/30/19 09/30/19 History traZODone HCL 50 mg PO HS 09/30/19 09/30/19 History Allergies Allergy/AdvReac Type Severity Reaction Status Date / Time No Known Allergies Allergy Verified 09/30/19 19:25 Physical Exam Vitals: Vital Signs Temp Pulse Pulse Resp BP BP Pulse Ox 10/01/19 14:46 63 18 10/01/19 09:16 16 10/01/19 07:39 98.1 F 63 18 152/67 95 10/01/19 01:46 98.5 F 61 18 134/45 94 L 09/30/19 22:00 98.1 F 66 18 178/56 94 L 09/30/19 20:50 64 18 153/66 94 L 09/30/19 19:46 65 164/66 92 L 09/30/19 18:00 63 17 159/62 94 L 09/30/19 17:30 65 18 157/62 93 L 09/30/19 17:06 95 09/30/19 16:47 99.3 F 64 18 152/92 95 Intake and Output 09/30/19 10/01/19 10/01/19 22:59 06:59 14:59 Intake Total 100 Output Total 500 Balance -500 100 Intake: Oral 100 Output: Urine 400 Stool 100 Other: Voiding Method Indwelling Catheter Indwelling Catheter # Voids 2 Weight 63.503 kg GENERAL DESCRIPTION: An elderly female lying in bed, no distress. No tachypnea or accessory muscle of respiration use. HEENT: scleral icterus. Oral mucous membrane is dry. No pharyngeal erythema or thrush NECK: Trachea central, no thyromegaly. LUNGS: Unlabored breathing. Clear to auscultation anteriorly. No wheeze or crackle. HEART: S1, S2, regular rate and rhythm. No loud murmur ABDOMEN: Soft, mild right upper quadrant tenderness , no guarding or rigidity, no organomegaly EXTREMITIES: No edema of feet. SKIN: No rash, no masses palpable. NEUROLOGICAL: The patient is awake, alert, oriented x3, mood and affect normal. Results CBC & Chem 7: 10/01/19 07:37 10/01/19 07:37 Labs: Abnormal Lab Results - Last 24 Hours (Table) 09/30/19 09/30/19 09/30/19 Range/Units 17:21 17:26 17:26 WBC 16.9 H (3.8-10.6) k/uL RBC 3.48 L (3.80-5.40) m/uL Hgb 10.7 L (11.4-16.0) gm/dL Hct 33.9 L (34.0-46.0) % MCHC (31.0-37.0) g/dL RDW 16.2 H (11.5-15.5) % Neutrophils # 14.1 H (1.3-7.7) k/uL ESR (0-20) mm/hr Chloride 109 H (98-107) mmol/L Carbon Dioxide 19 L (22-30) mmol/L BUN 46 H (7-17) mg/dL Creatinine 2.65 H (0.52-1.04) mg/dL Glucose (74-99) mg/dL Calcium (8.4-10.2) mg/dL Total Bilirubin 2.1 H (0.2-1.3) mg/dL Conjugated Bilirubin (0.0-0.3) mg/dL Delta Bilirubin (0.0-0.2) mg/dL AST 48 H (14-36) U/L ALT 37 H (4-34) U/L Alkaline Phosphatase 288 H (38-126) U/L Total Protein 6.0 L (6.3-8.2) g/dL Albumin 3.1 L (3.5-5.0) g/dL Amylase 439 H* (30-110) U/L Lipase 1955 H (23-300) U/L Urine Appearance Cloudy H (Clear) Urine Protein 2+ H (Negative) Urine Blood Moderate H (Negative) Urine Nitrite Positive H (Negative) Ur Leukocyte Esterase Large H (Negative) Urine RBC 10 H (0-5) /hpf Urine WBC 82 H (0-5) /hpf Urine WBC Clumps Many H (None) /hpf Amorphous Sediment Occasional H (None) /hpf Urine Bacteria Occasional H (None) /hpf Urine Mucus Rare H (None) /hpf 10/01/19 10/01/19 10/01/19 Range/Units 07:37 07:37 07:37 WBC 14.1 H (3.8-10.6) k/uL RBC 3.08 L (3.80-5.40) m/uL Hgb 9.4 L (11.4-16.0) gm/dL Hct 30.7 L (34.0-46.0) % MCHC 30.7 L (31.0-37.0) g/dL RDW 16.1 H (11.5-15.5) % Neutrophils # 10.9 H (1.3-7.7) k/uL ESR 35 H (0-20) mm/hr Chloride 112 H (98-107) mmol/L Carbon Dioxide 21 L (22-30) mmol/L BUN 43 H (7-17) mg/dL Creatinine 2.51 H (0.52-1.04) mg/dL Glucose 73 L (74-99) mg/dL Calcium 8.1 L (8.4-10.2) mg/dL Total Bilirubin 3.4 H (0.2-1.3) mg/dL Conjugated Bilirubin 1.8 H (0.0-0.3) mg/dL Delta Bilirubin 0.9 H (0.0-0.2) mg/dL AST 45 H (14-36) U/L ALT (4-34) U/L Alkaline Phosphatase 267 H (38-126) U/L Total Protein 4.9 L (6.3-8.2) g/dL Albumin 2.4 L (3.5-5.0) g/dL Amylase (30-110) U/L Lipase 665 H (23-300) U/L Urine Appearance (Clear) Urine Protein (Negative) Urine Blood (Negative) Urine Nitrite (Negative) Ur Leukocyte Esterase (Negative) Urine RBC (0-5) /hpf Urine WBC (0-5) /hpf Urine WBC Clumps (None) /hpf Amorphous Sediment (None) /hpf Urine Bacteria (None) /hpf Urine Mucus (None) /hpf Microbiology - Last 24 Hours (Table) 09/30/19 17:21 Urine Culture - Preliminary Urine,Voided Assessment and Plan Assessment: 1- patient is a 84-year-old female presented to the hospital with abdominal pain predominantly right upper quadrant tenderness. Did have some tenderness to have abnormal CT as well as ultrasound with concern for cholecystitis and possible tendinitis with a pancreatic pseudocyst and will need to cover for enteric gram-negative pathogen to the likely entail associated with this infection 2- positive UA with some urinary symptoms concerning for symptomatic urinary tract infection from enteric Gram-negative pathogen (1) Acute cholecystitis Current Visit: Yes Status: Acute Code(s): K81.0 - ACUTE CHOLECYSTITIS SNOMED Code(s): 21418826 (2) Ascending cholangitis Current Visit: Yes Status: Acute Code(s): K83.09 - OTHER CHOLANGITIS SNOMED Code(s): 95948899 (3) Leukocytosis Current Visit: Yes Status: Acute Code(s): D72.829 - ELEVATED WHITE BLOOD CELL COUNT, UNSPECIFIED SNOMED Code(s): 308544764 Plan: 1- Zosyn 3.75 g every 8 hours 2- gentle IV fluid We will follow on clinical condition and cultures to further adjust medication if needed Thank you for this consultation will follow this patient with you Time with Patient: Greater than 30
[2019-10-02] MEDS ORDERED: ACETAMINOPHEN TAB 325 MG TAB PO PRN (01:18)
[2019-10-02] MEDS: LEVOTHYROXINE 112 MCG TAB PO SCH (06:12)
[2019-10-02 07:00] LABS: INR 1.2 (<1.2); Prothrombin Time 11.8 sec (9.0-12.0)
[2019-10-02 07:10] LABS: Albumin 2.1 g/dL (3.5-5.0); Calcium 8.3 mg/dL (8.4-10.2); Potassium 3.4 mmol/L (3.5-5.1); Total Bilirubin 3.8 mg/dL (0.2-1.3); Total Protein 4.5 g/dL (6.3-8.2)
[2019-10-02] MEDS: hydrALAZINE HCL 50 MG TAB PO SCH ×2 (07:50→16:46)
[2019-10-02] MEDS: PIPERACILLIN-TAZOBACTAM 3.375 GM in SODIUM CHLORIDE 0.9% 100 ML IVPB SCH ×2 (08:50→21:04)
[2019-10-02 08:55] LABS: Anisocytosis Slight; Basophils % (A) 0 %; Eosinophils # (A) 0.7 k/uL (0-0.7); Eosinophils % (A) 6 %; HCT 28.4 % (34.0-46.0); HGB 8.7 gm/dL (11.4-16.0); Hypochromasia Marked; Lymphocytes # (A) 1.4 k/uL (1.0-4.8); Lymphocytes % (A) 11 %; MCH 30.7 pg (25.0-35.0); MCHC 30.7 g/dL (31.0-37.0); MCV 100.1 fL (80.0-100.0); Macrocytosis Slight; Mean Platelet Volume 8.1; Monocytes # (A) 0.7 k/uL (0-1.0); Monocytes % (A) 6 %; Neutrophils # (A) 8.9 k/uL (1.3-7.7); Neutrophils % (A) 74 %; Platelet Count 238 k/uL (150-450); RBC 2.83 m/uL (3.80-5.40); RDW 16.3 % (11.5-15.5)
[2019-10-02] MEDS: cloNIDine HCL 0.1 MG TAB PO SCH (09:44)
[2019-10-02] MEDS: AMIODARONE 200 MG TAB PO SCH ×2 (09:45→21:05)
[2019-10-02] MEDS: amLODIPine 5 MG TAB PO SCH (09:45)
[2019-10-02] MEDS: CALCIUM CARBONATE 500 MG CHEWABLE PO SCH (09:45)
[2019-10-02] MEDS: allopurinoL 100 MG TAB PO SCH (09:45)
[2019-10-02] MEDS: METOPROLOL TARTRATE 50 MG TAB PO SCH ×2 (09:45→21:05)
[2019-10-02] MEDS: ARTIFICIAL TEARS-HYPROMELLOSE DROPS 15 ML BTL BOTH EYES SCH ×2 (09:46→21:04)
[2019-10-02] MEDS: CHOLECALCIFEROL 1,000 UNIT TAB PO SCH (09:46)
[2019-10-02] MEDS: MULTIVITAMINS, THERA 1 EACH TAB PO SCH (09:47)
[2019-10-02] MEDS: COLLAGENASE 250 UNIT/GM OINTMENT 30 GM TUBE TOPICAL SCH (09:48)
[2019-10-02] MEDS: SODIUM BICARBONATE TAB 650 MG TAB PO SCH ×2 (09:50→21:04)
--- NOTE | 2019-10-02 10:17 | PN ---
PROGRESS NOTE DATE OF SERVICE: 10/02/2019 Patient is 84 years old, female. Room #470, bed 1 in the [facility]. NEW DATA: She is a NO CODE. 5 foot, 3 inches. 63.503 kg. BSA 1.66 m2. BMI 24.8 kg/m2. ALLERGY: Unknown. The patient is seen today, evaluated. She is in bed and was seen by the specialist and that was Dr. Chey Dugan, the concrete truck driver, also seen by Dr. Bernardo, Infectious Disease, and seen by Dr. Miller the general surgeon who operated on her before. Patient seen was awake, alert, oriented, not confused and she knew my name immediately and where she was currently present. On her vital signs, indicating that temperature 98.9 F oral. However, she spiked a temperature last night to 100.2 F oral as well as 101, and we ordered blood culture at that time to be done immediately x2 fifteen minutes apart. Her heart rate ranging between 63 and 59, respiratory rate 18 per minute and patient, her current blood pressure 156/62. Her mean blood pressure 93. Her oxygenation ranging between 95 and 94. LABORATORY: Indicating that white count started to improve gradually and WBC is 12. Her hemoglobin also dropped to 8.7 from admission 10.7. Her MCV 100.1 and her platelet count is not affected. Her PT 11.8 and INR 1.2, and patient was scheduled for MRCP today. Her electrolytes indicating that her sodium 141, potassium 3.4, which is on the lower side, and her chloride 113, and carbon dioxide is 20, and her BUN 42 and the creatinine is 2.93. The blood sugar 73-131, and we have the IV as dextrose because the patient is not eating protein and the muscle destruction. Her calcium 8.3, and total bilirubin is progressively increased 3.8 today. Her AST 72 and ALT 39, which is increased from previous labs. Her alkaline phosphatase 306, also elevated as well and her albumin decreased to 2.1. Her serum amylase was still high 152 and lipase has been still elevated and was better yesterday; however, today is increased again 8.6. We have urinary tract infection with large leukocyte and clumps of WBC. However, the culture indicating gram-negative bacilli and she is on Zosyn at this time. ID is not available and Dr. Bernardo, Infectious Disease following as well. Her extremities, no edema and on the examination, HEENT was negative, start of icterus and the conjunctiva, oropharynx negative. Neck was supple and no JVD. No thyromegaly. No lymphadenopathy. Trachea midline. Chest was clear to auscultation and percussion and the CT scan of the chest was indicating a questionable infiltrate versus atelectasis on the lower bases of the lung. The heart was regular sinus rhythm and she had history of atrial fibrillation, but with the going to the procedure, the novel anticoagulant has been withheld and the abdomen is wick tender with deep palpation on the right upper quadrant and on the rest of the abdomen with the underlying elevated pancreatic enzyme with mild degree of pancreatitis. Extremities, no edema and positive pulses and she can move her knees in the supine and left feet as well. Patient has elevated bilirubin total as well as elevated liver enzyme and tenderness with positive gallstones and dilated common bile duct. With the underlying cholelithiasis and the consultation with Gastroenterology indicating that as her impression indicating the patient presented with epigastric right upper quadrant abdominal pain for 3 days and elevated lipase and LFT. Liver function tests consistent with acute gallstone pancreatitis and she has also recent history of colostomy for colonic obstruction by Dr. Miller. She has a history of hypertension and hyperlipidemia and gastroesophageal reflux disease history on atrial fibrillation, but she was not on Coumadin. She has underlying anxiety and depression and at that time recommendation, she continue antibiotic and monitor LFT and schedule for MRCP to evaluate the common bile duct stone. Based on that, we will decide need for any endoscopy intervention and will hold the Eliquis and start clear liquid diet and follow up closely. Also, the patient was seen by Dr. Miller and his impression is gallstone pancreatitis and he stated that the ERCP is likely required; however, MRCP already ordered and he stated to be n.p.o. and continue the antibiotic. The patient as well, seen by Dr. Bernardo. Infectious Disease and his impression is patient has leukocytosis and with the abdominal tenderness, cover with gram-negative pathogen with urinary tract infection. Acute cholecystitis and ascending cholangitis and he recommended to continue with the Zosyn 3.75 every 8 hour and gentle IV fluid. Also, patient had a consultation with Nephrology for acute kidney injury. They did not see her yet, hopefully today we will see her. ASSESSMENT: As mentioned above and she is going to MRCP and waiting for the results and continuing the antibiotic with the currently reevaluation after the testing. Her condition is guarded with multiple medical problems and will see the opinion of Nephrology as well. ELANA / IJN: [id number] /
[2019-10-02] MEDS: DEXTROSE 5%-LACTATED RINGERS 1,000 ML with POTASSIUM CHLORIDE 20 MEQ IV SCH ×4 (11:10→23:57)
--- NOTE | 2019-10-02 11:15 | CONS ---
CONSULTATION REASON FOR CONSULT: Renal failure. HISTORY OF PRESENT ILLNESS: Patient is an 84-year-old female who was admitted to the hospital on 09/30/2019 with complaints of abdominal pain. The patient has had pain for 3-4 days prior to admission. She has had decreased appetite. No significant fever, chills, nausea, vomiting. Patient denies any prior history of kidney diseases. She does have a history of bowel obstruction with bowel resection and colostomy, it is unclear if patient had increased output from her ostomy prior to admission. Patient has a complicated history. She recently underwent abdominal surgery with a Fahad's procedure with a prolonged postoperative course. She also has history of urine retention during her last admission and currently she has an indwelling Murphy catheter. CAT scan of the abdomen this admission showed a pancreatic pseudocyst. Surgery is on consult. Patient also has an atrophic left kidney. Patient has chronic kidney disease with baseline creatinine close to 1.9-2 mg/dL all the way back to 2018. During her last admission. Her creatinine has stayed about 1.7- 1.8 mg/dL. This admission, the creatinine was 2.65 and it has gone up to 2.9 currently. Patient is voiding a 24 hour urine output in the indwelling Murphy catheter at about 700 mL. Blood pressure has not been low in fact it is on the higher side. The CAT scan done on 09/30/2019 was without IV contrast. Prior to admission, patient was not on any TOYIN inhibitors or nonsteroidal anti-inflammatory agents. 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 PAST SURGICAL HISTORY: Appendectomy, bowel resection in February, removal of a kidney tumor. SOCIAL HISTORY: Negative for smoking, drug abuse or alcohol abuse. MEDICATIONS: Prior to admission multiple include Lipitor, vitamin D, Norvasc, Cymbalta, clonidine, hydralazine, Cordarone, Eliquis, Zyloprim, Synthroid, Lopressor, sodium bicarb, trazodone. ALLERGIES: None. PHYSICAL EXAMINATION: Patient is comfortable. She is awake, she is not in any acute distress. Blood pressure was 156/62, heart rate 59 per minute, patient did have a fever 100.2 degrees Fahrenheit last night. Examination of the heart,. S1, S2. Examination of the lungs, bilateral breath sounds are heard. Abdomen is soft, nontender. Examination of the lower extremities shows no significant edema. [employer] OPERATOR exam grossly intact. LABS: Show sodium of 141, potassium 3.4, chloride 113, CO2 is 20, BUN 42, creatinine 2.93, hemoglobin 8.7 g/dL. UA shows multiple WBCs with WBC clumps, 2+ protein, positive blood and nitrite. ASSESSMENT: 1. Acute kidney injury most likely prerenal. Patient is maintained on IV fluids. I will continue the IV fluids for now. She is not on any nephrotoxic medications. The patient has not received any IV contrast this admission. She has an indwelling Murphy catheter. Therefore, I had a therefore there is a no underlying obstruction. I will continue with the IV fluids for now and repeat labs in a.m. Maintain adequate IV hydration and avoid hypotension. 2. Chronic kidney disease stage 3B to 4 with baseline creatinine about 1.9-2 mg/dL secondary to nephrosclerosis. The patient has atrophic left kidney as well. 3. Hypertension controlled with occasional high blood pressure readings. 4. Metabolic acidosis maintained on oral sodium bicarb. 5. Hypothyroidism, maintained on supplementation. 6. Mild hypokalemia currently being replaced. 7. Abdominal pain with a pancreatic pseudocyst and pancreatitis. Lipase is currently decreasing. PLAN: Continue IV fluids, repeat labs in a.m. Avoid hypotension. Maintain Murphy catheter. Continue the antibiotics for treatment of UTI. Continue sodium bicarb. Thank you for this consultation. Will continue to follow the patient with you during her hospitalization. MMODL / IJN: [id number] /
--- NOTE | 2019-10-02 14:10 | MR ---
EXAMINATION TYPE: MR MRCP DATE OF EXAM: 10/02/2019 COMPARISON: Most recent CT September 30, 2019 and older CTs HISTORY: R/O CBD stone, recent abnormal CT with no biliary dilatation. History of cervical cancer and peritoneal carcinomatosis. Standard multiplanar, multisequence MRI departmental protocol Multiplanar, multisequence images of the abdomen were acquired. Thin and thick slice MRCP imaging performed on a MRI scanner. FINDINGS: Liver/gallbladder/pancreas/biliary system: Liver size stable and within normal limits. Some perihepat ic ascites along the right aspect noted seen better on MRI versus CT studies. Scattered throughout th e liver there are multiple heterogeneous subcentimeter T2 hyperintense foci, given patient's history of metastatic neoplasm, hepatic metastatic disease must be strongly considered. Gallbladder has diste nded margins without intraluminal gallstones. Some surrounding ascites is present. Corresponding to r ecent CT and ultrasound there is severe extrahepatic and [id number] central intrahepatic biliar y dilatation with some tapering but persistent dilatation up to the ampulla where there is abrupt yeni rowing. No obvious obstructing calculus. Pancreas shows atrophy with diffuse cystic change along with dilated duct more prominent in the head that has tortuosity and gradual tapering with abrupt cut off near the ampulla before junction with the common bile duct. Other: Worsening left upper quadrant perisplenic ascites. Asymmetric left renal atrophy. Moderate rig ht greater than left bilateral hydronephrosis. Underlying S-shaped scoliotic curvature. No adrenal ma sses. IMPRESSION: MRI does not show obstructing CBD stone. 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 Significant biliary and pancreatic ductal dilatation noted. Persistent bilateral hydronephros is. Worsening ascites.
--- NOTE | 2019-10-02 15:22 | P.PN ---
<JevonLoren negrete - Last Filed: 10/02/19 15:03> Subjective Progress Note Date: 10/02/19 CHIEF COMPLAINT: right upper quadrant abdominal pain HISTORY OF PRESENT ILLNESS: patient being treated for gallstone pancreatitis. She has been started on a full liquid diet today. She reports that her pain is tolerable. She denies any nausea or vomiting. She was able to tolerate popsicles earlier today. She underwent MRCP today and is scheduled for ERCP tomorrow. She had a temperature of 100.2 this morning. WBC down from 14.1-12.0. Hemoglobin 8.7, AST up from 45-72, ALT 39, alk phos 306, total bilirubin 3.8, amylase 152, lipase down from 665 to 806 PHYSICAL EXAM: VITAL SIGNS: Reviewed. GENERAL: Well-developed in no acute distress. HEENT: No sclera icterus. Extraocular movements grossly intact. Moist buccal mucosa. Head is atraumatic, normocephalic. ABDOMEN: Soft. Nondistended. right upper quadrant tenderness with palpation. Stool present in her colostomy NEUROLOGIC: Alert and oriented. Cranial nerves II through XII grossly intact. ASSESSMENT: 1. Acute gallstone pancreatitis with MRCP not showing obstructing common bile duct stone. 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 Significant biliary and pancreatic ductal dilation noted. Worsening ascites. Persistent bilateral hydronephrosis PLAN: -agree with GI plan for ERCP - Continue IV antibiotics per ID - continue to monitor LFTs Physician Crime Scene Investigator note has been reviewed by physician. Signing provider agrees with the documented findings, assessment, and plan of care. Objective - Vital Signs Vital signs: Vital Signs Temp 98.3 F 10/02/19 14:08 Pulse 58 L 10/02/19 14:08 Resp 18 10/02/19 14:08 BP 158/61 10/02/19 14:08 Pulse Ox 93 L 10/02/19 14:08 Intake & Output 10/01/19 10/02/19 10/02/19 18:59 06:59 18:59 Intake Total 100 100 600 Output Total 500 200 Balance -400 -100 600 Intake: Intake, IV Titration 100 600 Amount Dextrose 5%-Lactated 300 Ringers 1,000 ml @ 100 mls/hr IV .Q10H [facility] Rx#: [id number] Dextrose 5%-Lactated 200 Ringers 1,000 ml @ 100 mls/hr IV .Q11H [facility] with Potassium Chloride 20 meq Rx#:[id number] Piperacillin-Tazobactam 3 100 100 .375 gm In Sodium Chloride 0.9% 100 ml @ 25 mls/hr IVPB Q12HR [facility] Rx #:[id number] Oral 100 Output: Urine 400 200 Stool 100 Other: Voiding Method Indwelling Catheter Indwelling Catheter Indwelling Catheter # Voids 2 3 - Labs CBC & Chem 7: 10/02/19 06:03 10/02/19 06:03 Labs: Abnormal Lab Results - Last 24 Hours (Table) 10/02/19 10/02/19 10/02/19 Range/Units 06:03 06:03 06:03 WBC 12.0 H (3.8-10.6) k/uL RBC 2.83 L (3.80-5.40) m/uL Hgb 8.7 L (11.4-16.0) gm/dL Hct 28.4 L (34.0-46.0) % MCV 100.1 H (80.0-100.0) fL MCHC 30.7 L (31.0-37.0) g/dL RDW 16.3 H (11.5-15.5) % Neutrophils # 8.9 H (1.3-7.7) k/uL INR 1.2 H (<1.2) Potassium 3.4 L (3.5-5.1) mmol/L Chloride 113 H (98-107) mmol/L Carbon Dioxide 20 L (22-30) mmol/L BUN 42 H (7-17) mg/dL Creatinine 2.93 H (0.52-1.04) mg/dL Glucose 131 H (74-99) mg/dL Calcium 8.3 L (8.4-10.2) mg/dL Total Bilirubin 3.8 H (0.2-1.3) mg/dL AST 72 H (14-36) U/L ALT 39 H (4-34) U/L Alkaline Phosphatase 306 H (38-126) U/L Total Protein 4.5 L (6.3-8.2) g/dL Albumin 2.1 L (3.5-5.0) g/dL Amylase 152 H (30-110) U/L Lipase 806 H (23-300) U/L Microbiology - Last 24 Hours (Table) 09/30/19 17:21 Urine Culture - Preliminary Urine,Voided Gram Neg Bacilli 09/30/19 19:32 Blood Culture - Preliminary Blood No Growth after 24 hours <Chris Millerony - Last Filed: 10/03/19 11:00> Subjective As above. Patient remains slightly confused. Pain seems to be improved. Low- grade fevers. Liver enzymes noted. MRCP results noted. Await plans for GI for ERCP. Objective - Vital Signs Vital signs: Vital Signs Temp 98.3 F 10/03/19 07:36 Pulse 63 10/03/19 07:36 Resp 16 10/03/19 07:36 BP 175/54 10/03/19 07:36 Pulse Ox 92 L 10/03/19 07:36 Intake & Output 10/02/19 10/03/19 10/03/19 18:59 06:59 18:59 Intake Total 600 1220 Output Total 700 Balance 600 520 Intake: Intake, IV Titration 600 1100 Amount Dextrose 5%-Lactated 300 Ringers 1,000 ml @ 100 mls/hr IV .Q10H [facility] Rx#: [id number] Dextrose 5%-Lactated 200 1000 Ringers 1,000 ml @ 100 mls/hr IV .Q11H [facility] with Potassium Chloride 20 meq Rx#:[id number] Piperacillin-Tazobactam 3 100 100 .375 gm In Sodium Chloride 0.9% 100 ml @ 25 mls/hr IVPB Q12HR [facility] Rx #:[id number] Oral 120 Output: Urine 700 Other: Voiding Method Indwelling Catheter Indwelling Catheter - Labs CBC & Chem 7: 10/02/19 06:03 10/03/19 07:50 Labs: Abnormal Lab Results - Last 24 Hours (Table) 10/03/19 Range/Units 07:50 Chloride 114 H (98-107) mmol/L Carbon Dioxide 20 L (22-30) mmol/L BUN 40 H (7-17) mg/dL Creatinine 2.82 H (0.52-1.04) mg/dL Glucose 152 H (74-99) mg/dL Total Bilirubin 5.3 H (0.2-1.3) mg/dL AST 152 H (14-36) U/L ALT 87 H (4-34) U/L Alkaline Phosphatase 497 H (38-126) U/L Total Protein 5.3 L (6.3-8.2) g/dL Albumin 2.5 L (3.5-5.0) g/dL Microbiology - Last 24 Hours (Table) 10/02/19 01:51 Blood Culture - Preliminary Blood No Growth after 24 hours 10/02/19 01:30 Blood Culture - Preliminary Blood No Growth after 24 hours 09/30/19 17:21 Urine Culture - Final Urine,Voided Escherichia coli 09/30/19 19:32 Blood Culture - Preliminary Blood No Growth after 48 hours Assessment and Plan (1) Gallstone pancreatitis Current Visit: Yes Status: Acute Code(s): K85.10 - BILIARY ACUTE PANCREATITIS WITHOUT NECROSIS OR INFECTION SNOMED Code(s): 79962703
[2019-10-02] MEDS: traZODone HCL 50 MG TAB PO SCH (21:04)
[2019-10-02] MEDS: DULoxetine HCL 60 MG CAPSULE.DR PO SCH (21:05)
--- NOTE | 2019-10-03 01:09 | PN ---
PROGRESS NOTE DATE OF SERVICE: 10/02/2019 REASON FOR FOLLOW UP: Cholecystitis and concern for ascending cholangitis. INTERVAL HISTORY: Patient is currently afebrile. He is still complaining of pain in the right upper quadrant area. Denies having any chest pain. No shortness of breath or cough. No nausea, no vomiting, no diarrhea. PHYSICAL EXAMINATION: Blood pressure 171/64 with a pulse of 63, temperature 98, she is 97% on room air. General description is an elderly female lying in bed in no distress. Respiratory system: Unlabored breathing, clear to auscultation anteriorly. Heart S1, S2. Regular rate and rhythm. Abdomen soft, no tenderness. LABS: Hemoglobin 8.5, white count 12, BUN of 42, creatinine is 2.93. Urine is E coli. Blood culture so far pending. DIAGNOSTIC IMPRESSION AND PLAN: Patient admitted to the hospital with right upper quadrant pain with concern for possible cholecystitis. MRCP did not show any evidence of stones with concern for possible pancreatic head tumor and recommending ERCP. She will continue with Zosyn and we will monitor clinical course closely. MMODL / IJN: [id number] /
[2019-10-03] MEDS: DEXTROSE 5%-LACTATED RINGERS 1,000 ML with POTASSIUM CHLORIDE 20 MEQ IV SCH ×4 (05:20→07:41)
[2019-10-03] MEDS: LEVOTHYROXINE 112 MCG TAB PO SCH (06:20)
[2019-10-03] MEDS: ATORVASTATIN 10 MG TAB PO SCH (07:39)
[2019-10-03] MEDS: allopurinoL 100 MG TAB PO SCH (07:39)
[2019-10-03] MEDS: MULTIVITAMINS, THERA 1 EACH TAB PO SCH (07:39)
[2019-10-03] MEDS: amLODIPine 5 MG TAB PO SCH (07:39)
[2019-10-03] MEDS: METOPROLOL TARTRATE 50 MG TAB PO SCH (07:39)
[2019-10-03] MEDS: AMIODARONE 200 MG TAB PO SCH (07:39)
[2019-10-03] MEDS: CHOLECALCIFEROL 1,000 UNIT TAB PO SCH (07:40)
[2019-10-03] MEDS: SODIUM BICARBONATE TAB 650 MG TAB PO SCH (07:40)
[2019-10-03] MEDS: cloNIDine HCL 0.1 MG TAB PO SCH (07:40)
[2019-10-03] MEDS: PIPERACILLIN-TAZOBACTAM 3.375 GM in SODIUM CHLORIDE 0.9% 100 ML IVPB SCH (07:40)
[2019-10-03] MEDS: hydrALAZINE HCL 50 MG TAB PO SCH (07:40)
[2019-10-03] MEDS: ARTIFICIAL TEARS-HYPROMELLOSE DROPS 15 ML BTL BOTH EYES SCH (07:41)
[2019-10-03] MEDS: CALCIUM CARBONATE 500 MG CHEWABLE PO SCH (07:41)
[2019-10-03] MEDS: COLLAGENASE 250 UNIT/GM OINTMENT 30 GM TUBE TOPICAL SCH (07:41)
[2019-10-03 08:55] LABS: Albumin 2.5 g/dL (3.5-5.0); Potassium 3.9 mmol/L (3.5-5.1); Total Bilirubin 5.3 mg/dL (0.2-1.3); Total Protein 5.3 g/dL (6.3-8.2)
[2019-10-03] MEDS ORDERED: SODIUM CHLORIDE 0.9% 1,000 ML IV SCH (11:00)
--- NOTE | 2019-10-03 11:00 | P.PN ---
Subjective Progress Note Date: 10/03/19 Principal diagnosis: Gallstone pancreatitis Patient without new complaints. Liver enzymes have increased further. Bilirubin 5.3, alk phos 497. Scheduled for ERCP today. MRI results noted. Objective - Vital Signs Vital signs: Vital Signs Temp 98.3 F 10/03/19 07:36 Pulse 63 10/03/19 07:36 Resp 16 10/03/19 07:36 BP 175/54 10/03/19 07:36 Pulse Ox 92 L 10/03/19 07:36 Intake & Output 10/02/19 10/03/19 10/03/19 18:59 06:59 18:59 Intake Total 600 1220 Output Total 700 Balance 600 520 Intake: Intake, IV Titration 600 1100 Amount Dextrose 5%-Lactated 300 Ringers 1,000 ml @ 100 mls/hr IV .Q10H [facility] Rx#: [id number] Dextrose 5%-Lactated 200 1000 Ringers 1,000 ml @ 100 mls/hr IV .Q11H [facility] with Potassium Chloride 20 meq Rx#:[id number] Piperacillin-Tazobactam 3 100 100 .375 gm In Sodium Chloride 0.9% 100 ml @ 25 mls/hr IVPB Q12HR [facility] Rx #:[id number] Oral 120 Output: Urine 700 Other: Voiding Method Indwelling Catheter Indwelling Catheter - Exam Abdomen: Soft, nondistended, mild epigastric tenderness - Labs CBC & Chem 7: 10/02/19 06:03 10/03/19 07:50 Labs: Abnormal Lab Results - Last 24 Hours (Table) 10/03/19 Range/Units 07:50 Chloride 114 H (98-107) mmol/L Carbon Dioxide 20 L (22-30) mmol/L BUN 40 H (7-17) mg/dL Creatinine 2.82 H (0.52-1.04) mg/dL Glucose 152 H (74-99) mg/dL Total Bilirubin 5.3 H (0.2-1.3) mg/dL AST 152 H (14-36) U/L ALT 87 H (4-34) U/L Alkaline Phosphatase 497 H (38-126) U/L Total Protein 5.3 L (6.3-8.2) g/dL Albumin 2.5 L (3.5-5.0) g/dL Microbiology - Last 24 Hours (Table) 10/02/19 01:51 Blood Culture - Preliminary Blood No Growth after 24 hours 10/02/19 01:30 Blood Culture - Preliminary Blood No Growth after 24 hours 09/30/19 17:21 Urine Culture - Final Urine,Voided Escherichia coli 09/30/19 19:32 Blood Culture - Preliminary Blood No Growth after 48 hours Assessment and Plan (1) Gallstone pancreatitis Narrative/Plan: Keep nothing by mouth for now. Await ERCP study today. Repeat labs tomorrow. Current Visit: Yes Status: Acute Code(s): K85.10 - BILIARY ACUTE PANCREATITIS WITHOUT NECROSIS OR INFECTION SNOMED Code(s): 17717690
[2019-10-03] MEDS ORDERED: FUROSEMIDE 10 MG/ML 2 ML VIAL IV ONE (11:06)
--- NOTE | 2019-10-03 11:07 | P.PN ---
Subjective Patient is seen in follow-up for acute kidney injury on chronic kidney disease. Renal function stable. Has a Murphy catheter. Nonoliguric. Intermittently confused. Denies chest pain or shortness breath at this time. Vital signs are stable. General: The patient appeared well nourished and normally developed. HEENT: Head exam is unremarkable. Neck is without jugular venous distension. LUNGS: Lungs are clear to auscultation and percussion. Breath sounds decreased. HEART: Rate and Rhythm are regular. ABDOMEN: Soft, nontender. EXTREMITITES: Trace edema. Objective - Vital Signs Vital signs: Vital Signs Temp 98.3 F 10/03/19 07:36 Pulse 63 10/03/19 07:36 Resp 16 10/03/19 07:36 BP 175/54 10/03/19 07:36 Pulse Ox 92 L 10/03/19 07:36 Intake & Output 10/02/19 10/03/19 10/03/19 18:59 06:59 18:59 Intake Total 600 1220 Output Total 700 Balance 600 520 Intake: Intake, IV Titration 600 1100 Amount Dextrose 5%-Lactated 300 Ringers 1,000 ml @ 100 mls/hr IV .Q10H [facility] Rx#: [id number] Dextrose 5%-Lactated 200 1000 Ringers 1,000 ml @ 100 mls/hr IV .Q11H [facility] with Potassium Chloride 20 meq Rx#:[id number] Piperacillin-Tazobactam 3 100 100 .375 gm In Sodium Chloride 0.9% 100 ml @ 25 mls/hr IVPB Q12HR [facility] Rx #:[id number] Oral 120 Output: Urine 700 Other: Voiding Method Indwelling Catheter Indwelling Catheter - Labs CBC & Chem 7: 10/02/19 06:03 10/03/19 07:50 Labs: Abnormal Lab Results - Last 24 Hours (Table) 10/03/19 Range/Units 07:50 Chloride 114 H (98-107) mmol/L Carbon Dioxide 20 L (22-30) mmol/L BUN 40 H (7-17) mg/dL Creatinine 2.82 H (0.52-1.04) mg/dL Glucose 152 H (74-99) mg/dL Total Bilirubin 5.3 H (0.2-1.3) mg/dL AST 152 H (14-36) U/L ALT 87 H (4-34) U/L Alkaline Phosphatase 497 H (38-126) U/L Total Protein 5.3 L (6.3-8.2) g/dL Albumin 2.5 L (3.5-5.0) g/dL Microbiology - Last 24 Hours (Table) 10/02/19 01:51 Blood Culture - Preliminary Blood No Growth after 24 hours 10/02/19 01:30 Blood Culture - Preliminary Blood No Growth after 24 hours 09/30/19 17:21 Urine Culture - Final Urine,Voided Escherichia coli 09/30/19 19:32 Blood Culture - Preliminary Blood No Growth after 48 hours Assessment and Plan Plan: Assessment: 1. Acute kidney injury secondary to ATN secondary to infection. Also noted to have bilateral hydronephrosis. Creatinine stable at 2.82 today. 2. Chronic kidney disease stage III with baseline creatinine near 2 Secondary to nephrosclerosis. Noted to have left atrophic kidney. 3. Hypertension with chronic kidney disease. 4. Metabolic acidosis secondary to acute kidney injury maintained on oral sod ium bicarbonate. 5. Hypokalemia from poor intake status post replacement. Better. 6. Gallstone pancreatitis. Also concern for pancreatic tumor. Scheduled for ERCP today. 7. UTI with urine culture positive for E. coli maintained on antibiotics. 8. Anemia of chronic kidney disease. Rule out iron deficiency. Plan: I will change IV fluids to normal saline at 50 mL an hour. Lasix 20 mg IV once today. Increase hydralazine to 50 mg 3 times daily. Increase clonidine to 0.1 mg 3 times daily. Check iron studies. Consult urology for bilateral hydronephrosis.
[2019-10-03] MEDS ORDERED: fentaNYL (PF) 50 MCG/ML 2 ML AMP ONE (11:50)
[2019-10-03] MEDS ORDERED: LIDOCAINE 1% INJ 10MG/ML (20 ML MDV) ONE (11:50)
[2019-10-03] MEDS ORDERED: PROPOFOL 10 MG/ML 20 ML VIAL IV ONE (11:50)
[2019-10-03] MEDS ORDERED: IV FLUID CONTINUATION 1,000 ML IV ONE (12:00)
--- NOTE | 2019-10-03 12:22 | P.PN ---
Subjective Progress Note Date: 10/03/19 Progress note dictation on 10/03/2019. Patient seen and evaluated today on 10/03/2019 before going to the ERCP. The MRCP was done result was not helpful. Her bilirubin increased to 5.3 with underlying obstruction of the common bile duct which the MRI did not indicate that. Her renal function: With acute kidney injury seen by nephrology. Her alkaline phosphatase 497 which also suggestive of obstruction. GFR is 15 with the underlying left kidney atrophy and the right kidney hydronephrosis, patient had Murphy catheter. Coronavirus not detected Blood culture so far negative, Urine culture E. coli patient covered with Zosyn. Abnormal liver enzyme AST 152 and a LT 87. Electrolyte sodium 142 potassium 3.9 and chloride 114 carbon dioxide was 20. BUN 40, creatinine 2.8 to. She had hypoproteinemia hypoalbuminemia secondary inability to eat. Calcitonin less than 2. Patient seen and evaluated Temperature 98.3 and pulse rate 63 per minute sinus and respiratory rate was 16, pressure 146/70 with the oxygen saturation 92. Patient was conscious alert agreeable with the testing and she is going through the ERCP. Chest is clear and the heart was regular sinus rhythm Abdomen tender in the right upper quadrant as well as vague discomfort on the other 4 quadrant. Extremities no edema and positive for pulses. Neurologically stable. Assessment: Acute choledochal lithiasis, gallbladder hydrops, sepsis. UTI E. coli Acute kidney injury on the top of chronic kidney disease stage III. Atrophic left kidney, and right kidney hydronephrosis, patient had Murphy catheter. Gallstone pancreatitis. Plan: Prognosis is guarded, discussed with her daughter in law. Who is a caregiver. Patient went this morning for ERCP, waiting for the results. Nephrology, infectious disease, gastroenterology, and general surgery follow-up appreciated was complicated condition. Objective - Vital Signs Vital signs: Vital Signs Temp 98.3 F 10/03/19 07:36 Pulse 63 10/03/19 07:36 Resp 16 10/03/19 07:36 BP 146/70 10/03/19 11:36 Pulse Ox 92 L 10/03/19 07:36 Intake & Output 10/02/19 10/03/19 10/03/19 18:59 06:59 18:59 Intake Total 600 1220 Output Total 700 Balance 600 520 Intake: Intake, IV Titration 600 1100 Amount Dextrose 5%-Lactated 300 Ringers 1,000 ml @ 100 mls/hr IV .Q10H [facility] Rx#: [id number] Dextrose 5%-Lactated 200 1000 Ringers 1,000 ml @ 100 mls/hr IV .Q11H [facility] with Potassium Chloride 20 meq Rx#:[id number] Piperacillin-Tazobactam 3 100 100 .375 gm In Sodium Chloride 0.9% 100 ml @ 25 mls/hr IVPB Q12HR [facility] Rx #:[id number] Oral 120 Output: Urine 700 Other: Voiding Method Indwelling Catheter Indwelling Catheter Indwelling Catheter - Labs CBC & Chem 7: 10/02/19 06:03 10/03/19 07:50 Labs: Abnormal Lab Results - Last 24 Hours (Table) 10/03/19 Range/Units 07:50 Chloride 114 H (98-107) mmol/L Carbon Dioxide 20 L (22-30) mmol/L BUN 40 H (7-17) mg/dL Creatinine 2.82 H (0.52-1.04) mg/dL Glucose 152 H (74-99) mg/dL Total Bilirubin 5.3 H (0.2-1.3) mg/dL AST 152 H (14-36) U/L ALT 87 H (4-34) U/L Alkaline Phosphatase 497 H (38-126) U/L Total Protein 5.3 L (6.3-8.2) g/dL Albumin 2.5 L (3.5-5.0) g/dL Microbiology - Last 24 Hours (Table) 10/02/19 01:51 Blood Culture - Preliminary Blood No Growth after 24 hours 10/02/19 01:30 Blood Culture - Preliminary Blood No Growth after 24 hours 09/30/19 17:21 Urine Culture - Final Urine,Voided Escherichia coli 09/30/19 19:32 Blood Culture - Preliminary Blood No Growth after 48 hours
--- NOTE | 2019-10-03 13:08 | P.PN ---
Subjective Progress Note Date: 10/02/19 Principal diagnosis: Elevated bilirubin, dilated pancreatic duct, dilated common bile duct Patient is seen lying in bed in no acute complaints. Tolerating diet. Objective - Vital Signs Vital signs: Vital Signs Temp 98.3 F 10/02/19 14:08 Pulse 59 L 10/02/19 16:18 Resp 18 10/02/19 16:18 BP 158/61 10/02/19 14:08 Pulse Ox 93 L 10/02/19 14:08 Intake & Output 10/01/19 10/02/19 10/02/19 18:59 06:59 18:59 Intake Total 100 100 600 Output Total 500 200 Balance -400 -100 600 Intake: Intake, IV Titration 100 600 Amount Dextrose 5%-Lactated 300 Ringers 1,000 ml @ 100 mls/hr IV .Q10H [facility] Rx#: [id number] Dextrose 5%-Lactated 200 Ringers 1,000 ml @ 100 mls/hr IV .Q11H [facility] with Potassium Chloride 20 meq Rx#:[id number] Piperacillin-Tazobactam 3 100 100 .375 gm In Sodium Chloride 0.9% 100 ml @ 25 mls/hr IVPB Q12HR [facility] Rx #:[id number] Oral 100 Output: Urine 400 200 Stool 100 Other: Voiding Method Indwelling Catheter Indwelling Catheter Indwelling Catheter # Voids 2 3 - Exam On physical examination, patient appears comfortable in no apparent distress. HEAD: Normocephalic, atraumatic. EYES: Scleral icterus. No conjunctival injection. MOUTH: No lesions, tongue midline. NECK: Trachea midline, no gross abnormalities. ABDOMEN: Soft, obese, nontender. Bowel sounds are positive. No organomegaly. No guarding or rigidity. EXTREMITIES: No pedal edema. SKIN: No rashes, jaundice. NEUROLOGIC: Alert and oriented to person. No focal deficits. - Labs CBC & Chem 7: 10/02/19 06:03 10/03/19 07:50 Labs: Abnormal Lab Results - Last 24 Hours (Table) 10/02/19 10/02/19 10/02/19 Range/Units 06:03 06:03 06:03 WBC 12.0 H (3.8-10.6) k/uL RBC 2.83 L (3.80-5.40) m/uL Hgb 8.7 L (11.4-16.0) gm/dL Hct 28.4 L (34.0-46.0) % MCV 100.1 H (80.0-100.0) fL MCHC 30.7 L (31.0-37.0) g/dL RDW 16.3 H (11.5-15.5) % Neutrophils # 8.9 H (1.3-7.7) k/uL INR 1.2 H (<1.2) Potassium 3.4 L (3.5-5.1) mmol/L Chloride 113 H (98-107) mmol/L Carbon Dioxide 20 L (22-30) mmol/L BUN 42 H (7-17) mg/dL Creatinine 2.93 H (0.52-1.04) mg/dL Glucose 131 H (74-99) mg/dL Calcium 8.3 L (8.4-10.2) mg/dL Total Bilirubin 3.8 H (0.2-1.3) mg/dL AST 72 H (14-36) U/L ALT 39 H (4-34) U/L Alkaline Phosphatase 306 H (38-126) U/L Total Protein 4.5 L (6.3-8.2) g/dL Albumin 2.1 L (3.5-5.0) g/dL Amylase 152 H (30-110) U/L Lipase 806 H (23-300) U/L Microbiology - Last 24 Hours (Table) 09/30/19 17:21 Urine Culture - Preliminary Urine,Voided Gram Neg Bacilli 09/30/19 19:32 Blood Culture - Preliminary Blood No Growth after 24 hours Assessment and Plan (1) Elevated liver enzymes Narrative/Plan: 84-year-old female admitted to the hospital with epigastric pain, right upper quadrant pain occurring over the past 3 days and getting progressively worse with associated nausea. Patient had elevated liver enzymes on presentation with a bilirubin of 3.4 and had an ultrasound the abdomen which showed evidence of gallstones as well as a dilated 2 cm common bile duct. The patient underwent MRCP today with findings of a dilated pancreatic duct and common bile duct with discrete tapering in the distal common bile duct suggestive of possible mass or stricture with no stone noted. Plan for ERCP tomorrow. Current Visit: Yes Status: Acute Code(s): R74.8 - ABNORMAL LEVELS OF OTHER SERUM ENZYMES SNOMED Code(s): 843428825 (2) Common bile duct dilatation Current Visit: Yes Status: Acute Code(s): K83.8 - OTHER SPECIFIED DISEASES OF BILIARY TRACT SNOMED Code(s): 651256995 (3) Pancreatic duct dilated Current Visit: Yes Status: Acute Code(s): K86.89 - OTHER SPECIFIED DISEASES OF PANCREAS SNOMED Code(s): 648508389 (4) Abdominal pain Current Visit: No Status: Acute Code(s): R10.9 - UNSPECIFIED ABDOMINAL PAIN SNOMED Code(s): 92848199 Plan: Supportive care Okay for diet Continue monitor CBC, BMP, LFTs Continue antibiotic therapy Plan is for ERCP tomorrow Nothing by mouth after midnight Thank you for allowing us to participate in the care of the patient we will continue to follow
--- NOTE | 2019-10-03 13:11 | P.PCN ---
Date of Procedure: 10/03/19 Description of Procedure: Brief history: 84-year-old female admitted to the hospital with epigastric pain, right upper quadrant pain occurring over the past 3 days and getting progressively worse with associated nausea. Patient had elevated liver enzymes on presentation with a bilirubin of 3.4 and had an ultrasound the abdomen which showed evidence of gallstones as well as a dilated 2 cm common bile duct. The patient underwent MRCP today with findings of a dilated pancreatic duct and common bile duct with discrete tapering in the distal common bile duct suggestive of possible mass or stricture with no stone noted. Bilirubin trended up to 5.3 today. Procedure performed: ERCP aborted/failed Preoperative diagnoses: Elevated bilirubin, abnormal MRI abdomen with pancreatic duct dilation in CBD dilation, abdominal pain IV sedation per anesthesia Estimated blood loss: Minimal. Procedure: After informed consent was obtained from the patient and after the risks benefits and complications including bleeding perforation and pancreatitis explained in detail the patient was brought into the endoscopy unit. The patient was placed in prone position and IV conscious sedation was administered by anesthesia under continuous monitoring. The Olympus side-viewing duodenoscope was then inserted into the mouth and esophagus intubated without any difficulty. The scope was gradually advanced into the stomach however could not be successfully passed into the duodenum. Multiple attempts were made at repositioning and external pressure with no success in intubating the duodenum. The seizure was aborted. Impression: Failed/aborted ERCP Recommendations: The findings of this examination were discussed with the patient. Okay to resume diet. Continue monitor CBC, BMP, LFTs. Recommendation is for transfer to tertiary center as MRCP performed yesterday was suggestive of obstructive process with dilation of the pancreatic duct and common bile duct with tapering in the distal CBD suggestive of possible mass or stricturing disease.
[2019-10-03 15:36] VITALS: RESP 16; TEMP 98
[2019-10-03] MEDS ORDERED: cloNIDine HCL 0.1 MG TAB PO SCH (16:00)
[2019-10-03] MEDS ORDERED: hydrALAZINE HCL 50 MG TAB PO SCH (16:00)
[2019-10-03 16:27] VITALS: BP 143/62; PULSE 69
[2019-10-03 17:30] LABS: % Iron Saturation 6.58 (12.00-45.00); Ferritin 456.9 ng/mL (10.0-291.0)
--- NOTE | 2019-10-03 20:40 | DS ---
DISCHARGE SUMMARY DATE OF SERVICE: 10/03/2019. DISPOSITION: Transferred to [facility] Room B451A to service of Dr. Kali Howard. They received the bed assignment at 6:44 p.m. from [facility] with the subsequent planning for transfer directly to [facility] in [place]. REASON FOR TRANSFER: Failure and aborted processes of ERCP. No success after the intubation and with the IV sedation with the duodenal scope. Attempt of reposition was also aborted. His recommendation, Dr. Juanito Guillen, Gastroenterology, indicating obstructive process with dilatation of the pancreatic duct and the common bile duct with trapping in the distal common bile duct, suggestive of possible mass or stricture disease. OTHER DIAGNOSES: 1. Urinary tract infection with E coli. 2. Atrophic left kidney. 3. Right kidney hydronephrosis, mild with the underlying acute kidney injury and on the top of chronic kidney disease stage 3 to 4. 4. Murphy catheter with the failure of self catheterization with urine retention. 5. 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 6. Infectious process with possible sepsis and seen by Dr. Bernardo, Infectious Disease. 7. Abdominal pain, progressive with the continuous progression of bilirubin to 5.4 with elevated liver enzyme and elevated amylase and lipase. Gallbladder pancreatic stones was also probability. Consultation with Nephrology, Dr. Gautam, and consultation with General surgery, Dr. Miller, and consultation with Nephrology, Dr. Gautam, and Infectious Disease, Dr. Bernardo. The patient seen this morning for hospital followup and dictated progress note and condition is guarded with multiple medical illness, subsequently taken to the ERCP which has been failure at the aborted by Dr. Juanito Guillen, Gastroenterology and he is able to make arrangements with [facility] for transfer and transferred tonight. The patient will be continued on her current medication with the IV antibiotic and she has been in sinus rhythm and Eliquis has been stopped due to the procedure. The patient underwent MRCP as well as ERCP as well as CT scan as well as ultrasound of the gallbladder. The procedure done to the patient. She had history of COPD, currently non symptomatic and CT scan was indicating atelectasis versus pneumonitis. However, patient was treated with antibiotic. She had a spike of temperature last night and could be associated with cholangitis. The examination done prior to ERCP: Head was normocephalic. Pupils equal, reactive and she had icteric conjunctivae. Neck was supple. Chest was clear to auscultation and percussion and the heart was regular sinus rhythm and the abdomen was soft, but tenderness on 4 quadrants with mainly the right upper quadrant and extremities no edema. Her blood pressure was fairly well controlled. ASSESSMENT: Stable for transfer to [facility] with the above diagnoses and continue the current medication. Length of time spent: 40 minutes. ELANA / TIFFN: [id number] /
--- NOTE | 2019-10-03 23:19 | PN ---
PROGRESS NOTE DATE OF SERVICE: 10/03/2019 REASON FOR FOLLOWUP: Ascending cholangitis. INTERVAL HISTORY: Patient is currently afebrile. The patient did have ERCP this morning which was unsuccessful with possible plan for transfer to [facility]. The patient denies having any chest pain. No shortness of breath or cough. No nausea, no vomiting. No abdominal pain or diarrhea. PHYSICAL EXAMINATION: Blood pressure 130/60 with a pulse of 79, temperature 98. She is 92% on room air. General description is an elderly female lying in bed in no distress. Respiratory system: Unlabored breathing, clear to auscultation anteriorly. Heart S1, S2. Regular rate and rhythm. Mildly tender in right upper quadrant area. LABS: BUN of 40, creatinine is 2.82. Urine is E coli. Blood culture so far negative. DIAGNOSTIC IMPRESSION AND PLAN: Patient with right upper quadrant pain, fever and elevated white count with concern for ascending cholangitis, cholecystitis in this patient who did have a worsening MRCP was suggested/ERCP could not be completed. Possible transfer to [facility]. Continue with Severino. Daughter at the bedside. Questions were answered. MMODL / IJN: [id number] /
--- NOTE | 2019-10-06 08:06 | CDI ---
Documentation Clarification Form Date: 10/06/19 From: Ina Velasquez Phone: If you have a question about this query, please contact Kerry Lam, Registrar Nurses' Registry at [phone] between 8am and 5pm. Admit Date: 09/30/19 Discharge Date:10/03/19 Patient Name: Angelica Ling Visit Number: [id number] ATTENTION: The Clinical Documentation Specialists (CDI) and [facility] Coding Staff appreciate your assistance in clarifying documentation. Please respond to the clarification below the line at the bottom and electronically sign. The CDI & [facility] Coding staff will review the response and follow-up if needed. Please note: Queries are made part of the Legal Health Record. If you have any questions, please contact the author of this message via ITS. Dear Dr. Engel Your patient has a documented diagnosis of Sepsis - which may lack sufficient clinical evidence/support. History/Risk Factors: Patient admitted with acute cholecystitis with cholelithiasis and probable obstruction of the common bile duct, UTI. After study found to have obstructive process with dilatation of the pancreatic duct and the common bile ducte with trapping in the distal common bile duct, suggestive of possible mass or stricture. Clinical Indicators: Elevated WBC WBC: 16.9 Lactic acid: 1.1 Blood cultures: No growth MRCP: Dilated pancreatic duct and common bile duct with discrete tapering in the distal common bile duct suggestive of possible mass or stricture with no stone noted. Vital signs on admission: T. 99.3, P. 64, R. 18, BP 152/92 Treatment: Antibiotics: IV Zosyn IV Bolus: 2 liter NS Based on the clinical evidence and your professional judgment, do you feel [] is a valid diagnosis? Yes, Sepsis present/active during this admission as evidence by (additional clinical support): uti e.cli in blood and urine add to acue cholecyctitis ,cholelithiasis and stone obstruction of comon bile duct and progressive elevation of bilirubin and liver enzyme and alkaline phosphatase No, Sepsis was ruled out. Other (please specify diagnosis) Unable to determine MTDD
--- NOTE | 2019-10-06 08:33 | CDI ---
Documentation Clarification Form Date: 10/06/19 From: Ina Velasquez Phone: If you have a question about this query, please contact Kerry Lam, Patient Access Associate at [phone] between 8am and 5pm. Admit Date: 09/30/19 Discharge Date:10/03/19 Patient Name: Angelica Ling Visit Number: [id number] ATTENTION: The Clinical Documentation Specialists (CDI) and [facility] Coding Staff appreciate your assistance in clarifying documentation. Please respond to the clarification below the line at the bottom and electronically sign. The CDI & [facility] Coding staff will review the response and follow-up if needed. Please note: Queries are made part of the Legal Health Record. If you have any questions, please contact the author of this message via ITS. Dear Dr. Engel A diagnosis of UTI has been documented in the H&P, Dr. Miller's consult note, Dr. Bernardo's consult note, discharge summary, Dr. Arrington's consult note and your 10/01 & 10/02 progress notes. History/Risk Factors: Chronic urinary retention Per documentation in the ED note and H&P, this patient was admitted with an indwelling Murphy catheter. Clinical Indicators: Abnormal UA Urinalysis: Cloudy, moderated blood, positive nitrite, large leukocyte esterase, RBC 10, occasional bacteria, 82 WBC Urine culture: E. coli Lab results: WBC 16.9 Treatment: IV Zosyn In your professional opinion, can you please clarify the etiology of the UTI, if known? Murphy catheter UTI not related to catheter Other condition, please specify Unable to determine If an infective organism is present, please specify cause and effect relationship if applicable. MTDD
--- NOTE | 2019-10-09 12:41 | CDI ---
Documentation Clarification Form Date: 10/09/19 From: Ina Velasquez Phone: If you have a question about this query, please contact Kerry Lam, Assignment Manager at [phone] between 8am and 5pm. Admit Date: 09/30/19 Discharge Date:10/03/19 Patient Name: Angelica Ling Visit Number: [id number] ATTENTION: The Clinical Documentation Specialists (CDI) and [facility] Coding Staff appreciate your assistance in clarifying documentation. Please respond to the clarification below the line at the bottom and electronically sign. The CDI & [facility] Coding staff will review the response and follow-up if needed. Please note: Queries are made part of the Legal Health Record. If you have any questions, please contact the author of this message via ITS. Dear Dr. Engel Thank you for signing the previous query. Please document a response before signing this query. A diagnosis of UTI has been documented in the H&P, Dr. Miller's consult note, Dr. Bernardo's consult note, discharge summary, Dr. Arrington's consult note and your 10/01 & 10/02 progress notes. History/Risk Factors: Chronic urinary retention Per documentation in the ED note and H&P, this patient was admitted with an indwelling Murphy catheter. Clinical Indicators: Abnormal UA Urinalysis: Cloudy, moderated blood, positive nitrite, large leukocyte esterase, RBC 10, occasional bacteria, 82 WBC Urine culture: E. coli Lab results: WBC 16.9 Treatment: IV Zosyn In your professional opinion, can you please clarify the etiology of the UTI, if known? UTI related to Murphy catheter UTI not related to catheter Other condition, please specify Unable to determine If an infective organism is present, please specify cause and effect relationship if applicable. Mrs. 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 EDWIN
== END 2019-10-03 20:00 | disposition short-term general hospital (02) | DRG 444 ==
LOC: EC 16:37 → 4SSUR 19:32
PROVIDERS: ADMIT Internal Medicine; ATTEND Internal Medicine
PROC: 0DJ68ZZ Inspection of Stomach, Via Natural or Artificial Opening Endoscopic (ICD-10-PCS; principal; 2019-10-03 10:30)
DX: K80.43 Calculus of bile duct with acute cholecystitis with obstruction (principal); K85.10 Biliary acute pancreatitis without necrosis or infection; N17.0 Acute kidney failure with tubular necrosis; T83.511A Infection and inflammatory reaction due to indwelling urethral catheter, initial encounter; E87.2 Acidosis; J98.11 Atelectasis; K82.1 Hydrops of gallbladder; K86.3 Pseudocyst of pancreas; N18.4 Chronic kidney disease, stage 4 (severe); M87.851 Other osteonecrosis, right femur; K94.09 Other complications of colostomy; R18.8 Other ascites; N13.6 Pyonephrosis; K83.1 Obstruction of bile duct; D63.1 Anemia in chronic kidney disease; E77.8 Other disorders of glycoprotein metabolism; E88.09 Other disorders of plasma-protein metabolism, not elsewhere classified; I13.10 Hypertensive heart and chronic kidney disease without heart failure, with stage 1 through stage 4 chronic kidney disease, or unspecified chronic kidney disease; Z66 Do not resuscitate; E03.9 Hypothyroidism, unspecified; Z20.828 Contact with and (suspected) exposure to other viral communicable diseases; E78.5 Hyperlipidemia, unspecified; E87.6 Hypokalemia; H91.90 Unspecified hearing loss, unspecified ear; B96.20 Unspecified Escherichia coli [E. coli] as the cause of diseases classified elsewhere; I48.91 Unspecified atrial fibrillation; J44.9 Chronic obstructive pulmonary disease, unspecified; K57.30 Diverticulosis of large intestine without perforation or abscess without bleeding; M43.16 Spondylolisthesis, lumbar region; M48.00 Spinal stenosis, site unspecified; R33.9 Retention of urine, unspecified; M51.36 Other intervertebral disc degeneration, lumbar region; F32.9 Major depressive disorder, single episode, unspecified; F41.9 Anxiety disorder, unspecified; K21.9 Gastro-esophageal reflux disease without esophagitis; Z90.49 Acquired absence of other specified parts of digestive tract; Z79.01 Long term (current) use of anticoagulants; Z79.890 Hormone replacement therapy; Z79.899 Other long term (current) drug therapy; Z85.41 Personal history of malignant neoplasm of cervix uteri; Z85.59 Personal history of malignant neoplasm of other urinary tract organ; Z90.710 Acquired absence of both cervix and uterus; Z86.14 Personal history of Methicillin resistant Staphylococcus aureus infection; Y83.3 Surgical operation with formation of external stoma as the cause of abnormal reaction of the patient, or of later complication, without mention of misadventure at the time of the procedure
CPT/HCPCS: 36415; 43260; 71250; 74176; 74181; 76705; 80048; 80053; 80076; 81001; 82150; 82308; 82728; 83540; 83550; 83605; 83690; 85025; 85610; 85652; 85730; 86850; 86900; 86901; 87040; 87077; 87086; 87186; 93005; 96361; 96365; 96375; 99285